=== PATIENT | male | born 1965 | race Caucasian/White ===

== ENCOUNTER 2020-07-09 06:22 | Outpatient (REF) | payer OTHER, SELFPAY ==
[2020-07-09 07:36] LABS: Estimated Average Glucose 108 mg/dL; Hemoglobin A1C 136.3725 umol/L; Hemoglobin A1c % 5.4 %
[2020-07-09 07:42] LABS: Anion Gap 14 (12-20); Blood Urea Nitrogen 21 mg/dL (9-16); Carbon Dioxide 25 mmol/L (22-29); Chloride 105 mmol/L (96-108); Cholesterol 164 mg/dL; Estimated Glomerular Filt Rate > 60; Glucose Fasting 97 mg/dL (60-99); HDL Cholesterol 35 mg/dL; LDL Cholesterol Calculated 114 mg/dl; Potassium 4.6 mmol/l (3.3-5.1); Sodium 139 mmol/L (135-145); Triglycerides 79 mg/dL
== END 2020-07-09 06:23 | disposition home or self-care (01) ==
LOC: HO.LAB 06:22
PROVIDERS: Visit Provider Family Medicine
DX: I10 Essential (primary) hypertension (principal); E11.9 Type 2 diabetes mellitus without complications; E78.01 Familial hypercholesterolemia
CPT/HCPCS: 80051; 80061; 82565; 82947; 83036; 84520

== ENCOUNTER 2020-07-16 07:37 | Outpatient (REF) | payer OTHER, SELFPAY ==
[2020-07-16 11:20] LABS: Creatinine Urine 49.99 mg/dL; Microalbumin Urine < 5.0 mg/L
== END 2020-07-16 07:38 | disposition home or self-care (01) ==
LOC: HO.10HDL 07:37
PROVIDERS: PCP Family Medicine; Visit Provider Family Medicine
DX: E11.9 Type 2 diabetes mellitus without complications (principal)
CPT/HCPCS: 82043

== ENCOUNTER 2021-07-02 07:05 | Outpatient (REF) | payer OTHER, SELFPAY ==
[2021-07-02 08:14] LABS: Estimated Average Glucose 111 mg/dL; Hemoglobin A1c % 5.5 %
[2021-07-02 08:27] LABS: Anion Gap 14 (12-20); Blood Urea Nitrogen 22 mg/dL (9-16); Carbon Dioxide 26 mmol/L (22-29); Chloride 105 mmol/L (96-108); Cholesterol 174 mg/dL; Estimated Glomerular Filt Rate > 60; Glucose Fasting 99 mg/dL (60-99); HDL Cholesterol 36 mg/dL; LDL Cholesterol Calculated 120 mg/dl; Potassium 4.7 mmol/L (3.3-5.1); Sodium 140 mmol/L (135-145); Triglycerides 92 mg/dL
== END 2021-07-02 07:06 | disposition home or self-care (01) ==
LOC: HO.LAB 07:05
PROVIDERS: PCP Family Medicine; Visit Provider Family Medicine
DX: I10 Essential (primary) hypertension (principal); E11.9 Type 2 diabetes mellitus without complications; E78.00 Pure hypercholesterolemia, unspecified
CPT/HCPCS: 36415; 80051; 80061; 82565; 82947; 83036; 84520

== ENCOUNTER 2022-03-26 06:10 | Outpatient (REF) | payer OTHER, SELFPAY ==
[2022-03-26 07:21] LABS: Estimated Average Glucose 105 mg/dL; Hemoglobin A1c % 5.3 %
[2022-03-26 07:55] LABS: Anion Gap 17 (12-20); Blood Urea Nitrogen 19 mg/dL (9-16); Carbon Dioxide 24 mmol/L (22-29); Chloride 103 mmol/L (96-108); Estimated Glomerular Filt Rate > 60; Glucose Fasting 106 mg/dL (60-99); Potassium 4.9 mmol/L (3.3-5.1); Sodium 139 mmol/L (135-145)
== END 2022-03-26 06:11 | disposition home or self-care (01) ==
LOC: HO.LAB 06:10
PROVIDERS: PCP Family Medicine; Visit Provider Family Medicine
DX: I10 Essential (primary) hypertension (principal); E11.9 Type 2 diabetes mellitus without complications
CPT/HCPCS: 36415; 80051; 82565; 82947; 83036; 84520

== ENCOUNTER 2022-11-20 06:05 | Outpatient (REF) | payer OTHER, SELFPAY ==
[2022-11-20 08:16] LABS: Alanine Aminotransferase 14 U/L (0-40); Anion Gap 13 (12-20); Blood Urea Nitrogen 20 mg/dL (9-16); Carbon Dioxide 27 mmol/L (22-29); Chloride 103 mmol/L (96-108); Estimated Glomerular Filt Rate > 60; Glucose Fasting 103 mg/dL (60-99); Potassium 4.5 mmol/L (3.3-5.1); Sodium 138 mmol/L (135-145)
[2022-11-20 08:34] LABS: Estimated Average Glucose 108 mg/dL; Hemoglobin A1c % 5.4 %
== END 2022-11-20 06:06 | disposition home or self-care (01) ==
LOC: HO.LAB 06:05
PROVIDERS: PCP Family Medicine; Visit Provider Family Medicine
DX: I10 Essential (primary) hypertension (principal); E78.00 Pure hypercholesterolemia, unspecified; R73.9 Hyperglycemia, unspecified
CPT/HCPCS: 36415; 80051; 80061; 82565; 82947; 83036; 84460; 84520

== ENCOUNTER 2023-06-07 06:07 | Outpatient (REF) | payer OTHER, SELFPAY ==
[2023-06-07 08:08] LABS: Cholesterol 169 mg/dL (<200); Glucose Fasting 89 mg/dL (60-99); HDL Cholesterol 34 mg/dL (>40); LDL Cholesterol Calculated 116 mg/dL (<100); Triglycerides 95 mg/dL (<150)
[2023-06-07 09:48] LABS: Creatinine Urine 71.53 mg/dL; Microalbumin Urine < 5.0 mg/L
== END 2023-06-07 06:08 | disposition home or self-care (01) ==
LOC: HO.LAB 06:07
PROVIDERS: PCP Family Medicine; Visit Provider Family Medicine
DX: E78.00 Pure hypercholesterolemia, unspecified (principal); E11.29 Type 2 diabetes mellitus with other diabetic kidney complication
CPT/HCPCS: 36415; 80061; 82570; 82947

== ENCOUNTER 2023-09-14 06:04 | Outpatient (REF) | payer OTHER, SELFPAY ==
[2023-09-14 07:41] LABS: Estimated Average Glucose 100 mg/dL; Hemoglobin A1c % 5.1 % (<6.0)
[2023-09-14 07:46] LABS: Alanine Aminotransferase 12 U/L (0-40); Anion Gap 14 (12-20); Aspartate Amino Transferase 17 U/L (5-37); Blood Urea Nitrogen 17 mg/dL (9-16); Carbon Dioxide 25 mmol/L (22-29); Chloride 106 mmol/L (96-108); Estimated Glomerular Filt Rate > 60; Glucose Fasting 104 mg/dL (60-99); Sodium 141 mmol/L (135-145)
[2023-09-14 08:14] LABS: Creatinine Urine 61.98 mg/dL; Microalbumin Urine < 5.0 mg/L
== END 2023-09-14 06:05 | disposition home or self-care (01) ==
LOC: HO.LAB 06:04
PROVIDERS: PCP Family Medicine; Visit Provider Family Medicine
DX: I10 Essential (primary) hypertension (principal); E11.9 Type 2 diabetes mellitus without complications; E78.00 Pure hypercholesterolemia, unspecified; Z79.899 Other long term (current) drug therapy
CPT/HCPCS: 36415; 80051; 82043; 82550; 82565; 82570; 82947; 83036; 84450; 84460; 84520

== ENCOUNTER 2023-11-15 06:02 | Outpatient (REF) | payer OTHER, SELFPAY ==
[2023-11-15 06:20] LABS: MANUAL DIFF FLAG NO
[2023-11-15 08:00] LABS: Basophils Absolute Auto 0.1 X10*3/uL (0.0-0.2); Basophils Percent Auto 0.7 % (0-2); Eosinophils Absolute Auto 0.3 X10*3/uL (0.0-0.4); Eosinophils Percent Auto 4.2 % (0-4); Hematocrit 39.7 % (42.0-52.0); Hemoglobin 12.8 g/dl (14.0-18.0); Imm Gran Abs Auto 0.01 X10*3/uL (0.00-0.03); Imm Gran Pct Auto 0.1 % (0.0-0.4); Lymphocytes Absolute Auto 2.2 X10*3/uL (1.2-4.9); Lymphocytes Percent Auto 30.6 % (20-40); Mean Corpuscular HGB Conc 32.2 g/dl (31.0-36.0); Mean Corpuscular Volume 86.9 fL (80.0-98.0); Mean Platelet Volume 9.1 fL (9.4-12.4); Monocytes Absolute Auto 0.6 X10*3/uL (0.1-1.2); Neutrophils Percent Auto 56.4 % (45-73); Platelet Count 318 X10*3/uL (160-400); Red Blood Count 4.57 X10*6/uL (4.60-5.80); Red Cell Distribution Width 12.9 % (11.0-16.0); White Blood Count 7.1 X10*3/uL (4.8-10.8)
[2023-11-15 08:40] LABS: Alanine Aminotransferase 12 U/L (0-40); Albumin Level 4.4 g/dL (3.5-5.0); Alkaline Phosphatase 110 U/L (39-117); Anion Gap 12 (12-20); Aspartate Amino Transferase 20 U/L (5-37); Bilirubin Total 0.6 mg/dL (0.0-1.0); Blood Urea Nitrogen 12 mg/dL (9-16); C Reactive Protein 0.28 mg/dL (< or = 0.50); Calcium 9.9 mg/dL (8.4-10.2); Carbon Dioxide 26 mmol/L (22-29); Chloride 105 mmol/L (96-108); Cholesterol 253 mg/dL (<200); Estimated Glomerular Filt Rate > 60; Glucose Fasting 87 mg/dL (60-99); HDL Cholesterol 31 mg/dL (>40); LDL Cholesterol Calculated 205 mg/dL (<100); Potassium 3.9 mmol/L (3.3-5.1); Sodium 139 mmol/L (135-145); Total Protein 7.9 g/dL (6.5-8.0); Triglycerides 87 mg/dL (<150)
[2023-11-15 08:51] LABS: Erythrocyte Sedimentation Rate 29 MM/HR (0-15)
[2023-11-15 08:58] LABS: Thyroid Stimulating Hormone 2.89 uIU/mL (0.32-4.0)
== END 2023-11-15 06:03 | disposition home or self-care (01) ==
LOC: HO.LAB 06:02
PROVIDERS: PCP Family Medicine; Visit Provider Family Medicine
DX: R63.4 Abnormal weight loss (principal); E78.00 Pure hypercholesterolemia, unspecified; E11.9 Type 2 diabetes mellitus without complications
CPT/HCPCS: 36415; 80053; 80061; 82378; 84443; 85025; 85652; 86140

== ENCOUNTER 2023-12-09 08:20 | Outpatient (AMB) | payer OTHER, SELFPAY ==
--- NOTE | 2023-12-09 08:20 | A.OFFVIS_ITS ---
Intake Visit Reasons: Rectal Tumor Intake Note: This patient presents for an assessmet for rectal tumor. Patient c/o; occasional rectal bleeding, occasional sharp rectal pain, reports no rectal pressure. Balance Weigher Required: No Accompanied by: Spouse Allergies No Known Allergies [No Known Allergies*] Allergy (Unverified 04/11/20 15:30) Medication List - Last Reconciled 12/09/23 by Shay Haro MD amlodipine 5 mg PO DAILY clonazepam 1 mg PO BEDTIME PRN lamotrigine mg PO lisinopril 20 mg PO DAILY methylphenidate HCl 10 mg PO DAILY methylphenidate HCl ER 54 mg PO QAM metoprolol succinate ER 50 mg PO DAILY risperidone (Risperdal) 1 mg PO BEDTIME HPI HPI Rectal Tumor: Details: 58-year-old male referred for recto sigmoid mass. He has known diabetes, morbid obesity and hypertension but has been losing weight for the past year now. He says that he has lost about 100 lb since last year. He describes some anorexia though has good oral intake. He says that continues to have good bowel movements although sometimes it may be loose. He denies any abdominal pain at all He has had some much lower energy level for several months now. He was therefore sent for a CT scan by his primary care physician and there was note of rectosigmoid mass. He denies any bleeding. He has never had any colonoscopy in the past. He denies any known family history of colon cancer. He has a history of chronic back pain as well but this has improved after injections in the past. He admits to smoking marijuana every day. [facility] Medical History (Updated 12/09/23 @ 09:13 by Shay Haro MD) Marijuana smoker Chronic back pain Anxiety History of obesity Diabetes mellitus Hypertension Neoplasm of rectosigmoid junction Surgical History (Updated 12/09/23 @ 08:48 by DAVON Linton) No pertinent past surgical history Family History (Updated 12/09/23 @ 08:48 by DAVON Linton) Other Family history unknown Review of Systems Const Denies chills, Denies fever(s) and Reports weight loss Card Denies chest pain, Denies dyspnea and Denies dyspnea on exertion Resp Denies cough, Denies dyspnea and Denies dyspnea on exertion GI Denies hematochezia and Denies change in bowel habits Denies hematuria and Denies difficulty urinating Musc Denies back pain and Denies limited range of motion Neuro Denies focal weakness and Denies convulsions Psych Denies depression and Denies mood swings Physical Exam Const General: comfortable and no acute distress Orientation/consciousness: patient oriented x3 Neck Neck: Yes no lymphadenopathy Resp Auscultation: clear to auscultation bilaterally Cardio Rhythm: regular rhythm GI Palpation (GI): Soft to palpation, nontender and no guarding Neuro General: patient oriented x3 Assessment & Plan Assessment & Plan (1) Neoplasm of rectosigmoid junction: Code(s): D49.0 - Neoplasm of unspecified behavior of digestive system Category: Medical Plan: He has had significant weight loss and low energy levels for the past year. He had a CAT scan showing what appears to be recto- sigmoid mass, with multiple enlarged lymph nodes surrounding the area as well as multiple liver lesions cons istent with metastatic disease He has never had any colonoscopy in the past. We will schedule him for a flexible sigmoidoscopy and biopsies for pathologic diagnosis. I will refer him to Dr. Case as well for what may be palliative chemotherapy I did tell him that there is a good chance that he may need a colostomy if he develops signs of impending obstruction. I will review his imaging studies and also see what his flexible sigmoidoscopy shows. I discussed with him what this procedure entails. He understands that surgery is not curative for him at this time. His was with him during the entire visit. I spent more than 45 minutes explaining the above to the patient and his . Orders: Referrals Hematology & Oncology Referral D49.0 - Neoplasm of unspecified behavior of digestive system Coding Level of Care Code New Pt Level 4 (71023) Diagnoses Neoplasm of rectosigmoid junction D49.0
== END 2023-12-09 09:29 | disposition home or self-care (01) ==
PROVIDERS: PCP Family Medicine; Visit Provider Surgery
DX: D49.0 Neoplasm of unspecified behavior of digestive system (principal)
CPT/HCPCS: 99204

== ENCOUNTER → 2023-12-09 08:20 | Outpatient (BNVA) | payer OTHER, SELFPAY | PROVIDERS: PCP Family Medicine; Visit Provider Surgery ==

== ENCOUNTER 2023-12-14 05:53 | Day surgery (SDC) | payer OTHER, SELFPAY ==
--- NOTE | 2023-12-13 10:32 | P.CONAN_ITS ---
HPI - Anesthesia Eval Consult details Narrative: 58yo M for Sigmoidoscopy Flexible with biopsies PMFSH Active Problems Active Problems: All Active Problems Marijuana smoker (Acute) Chronic back pain (Acute) Anxiety (Acute) History of obesity (Acute) Diabetes mellitus (Acute) Hypertension (Acute) Neoplasm of rectosigmoid junction (Acute) Past Medical History Medical History Marijuana smoker Chronic back pain Anxiety History of obesity Diabetes mellitus Hypertension Neoplasm of rectosigmoid junction Family History Family History Other Family history unknown Surgical History Surgical History H/O oral surgery No pertinent past surgical history Social History Social History (Updated 12/16/23 @ 09:11 by Valeri Neal) Household Members: Spouse Patient Tobacco Use Status: Never used Tobacco Substance Use Type: Marijuana service: No Current occupational status: disabled [employer] Allergies Allergy/AdvReac Type Severity Reaction Status Date / Time No Known Allergies Allergy Verified 12/16/23 09:11 [No Known Allergies*] Home Medications ?Medication ?Instructions ?Recorded ?Confirmed ?Last Taken ?Type amlodipine 5 mg tablet 5 mg PO DAILY 12/09/23 12/16/23 12/13/23 History clonazepam 1 mg tablet 1 mg PO BEDTIME PRN Anxiety 12/09/23 12/16/23 12/14/23 05 :00 History lamotrigine 200 mg tablet 200 mg PO DAILY 12/09/23 12/16/23 Unknown History lisinopril 20 mg tablet 20 mg PO DAILY 12/09/23 12/16/23 12/13/23 History methylphenidate HCl 10 mg tablet 10 mg PO DAILY 12/09/23 12/16/23 Unknown History methylphenidate HCl 54 mg 54 mg PO QAM 12/09/23 12/16/23 Unknown History tablet,extended release 24 hr metoprolol succinate 50 mg 50 mg PO DAILY 12/09/23 12/16/23 12/13/23 History tablet,extended release 24 hr risperidone 1 mg tablet (Risperdal) 1 mg PO BEDTIME 12/09/23 12/16/23 Unknown History Exam Pertinent Lab Results Pertinent Lab Results: Laboratory Tests 11/15/23 06:18 WBC 7.1 Hgb 12.8 L Hct 39.7 L Plt Count 318 Sodium 139 Potassium 3.9 Chloride 105 Carbon Dioxide 26 BUN 12 Creatinine 0.86 Assessment and Plan Assessment Anesthesia Assessment: Chart Reviewed
[2023-12-14 06:14] VITALS: BP 113/71; PULSE 58; RESP 16; TEMP 36.7; O2SAT 99; BMI 25.7
[2023-12-14 06:22] LABS: Glucose, Whole Blood 95 mg/dL (60-115)
[2023-12-14] MEDS: Lactated Ringers 1,000 ML 100 ML IVCONT (06:28)
--- NOTE | 2023-12-14 07:18 | PC.NURSE ---
Patient in preop. NPO since midnight. Ate regular diet all day yesterday. Dr. Haro at bedside. Okay per him. No preop enema necessary per him.
--- NOTE | 2023-12-14 07:29 | P.CONAN_ITS ---
[facility] Active Problems Active Problems: All Active Problems Marijuana smoker (Acute) Chronic back pain (Acute) Anxiety (Acute) History of obesity (Acute) Diabetes mellitus (Acute) Hypertension (Acute) Neoplasm of rectosigmoid junction (Acute) Past Medical History Medical History Marijuana smoker Chronic back pain Anxiety History of obesity Diabetes mellitus Hypertension Neoplasm of rectosigmoid junction Functional capacity: independent ambulation Family History Family History Other Family history unknown Family history of problems with anesthesia: No Surgical History Surgical History H/O oral surgery No pertinent past surgical history History of Problems with Anesthesia: No Social History Social History Patient Tobacco Use Status: Never used Tobacco Use of substances other than those prescribed or required for medical reasons: Yes Substance Use Frequency: Daily Are you DNR?: No Advance Directives: No Advance Directives Information Provided: No Meds Allergies Allergy/AdvReac Type Severity Reaction Status Date / Time No Known Allergies Allergy Verified 12/14/23 06:06 [No Known Allergies*] Active Medications: Current Medications Lactated Ringer's (Lr) 1,000 mls @ 100 mls/hr IVCONT .Q10H RACHEL Last Admin: 12/14/23 06:28 Dose: 100 mls/hr Home Medications ?Medication ?Instructions ?Recorded ?Confirmed ?Last Taken ?Type amlodipine 5 mg tablet 5 mg PO DAILY 12/09/23 12/14/23 12/13/23 History clonazepam 1 mg tablet 1 mg PO BEDTIME PRN Anxiety 12/09/23 12/14/23 12/14/23 05:00 History lamotrigine 200 mg tablet mg PO 12/09/23 12/09/23 Unknown History lisinopril 20 mg tablet 20 mg PO DAILY 12/09/23 12/14/23 12/13/23 History methylphenidate HCl 10 mg tablet 10 mg PO DAILY 12/09/23 12/14/23 Unknown History methylphenidate HCl 54 mg 54 mg PO QAM 12/09/23 12/14/23 Unknown History tablet,extended release 24 hr metoprolol succinate 50 mg 50 mg PO DAILY 12/09/23 12/14/23 12/13/23 History tablet,extended release 24 hr risperidone 1 mg tablet (Risperdal) 1 mg PO BEDTIME 12/09/23 12/14/23 Unknown History Exam Height,Weight and Vital Signs: Height 6 ft 2 in Weight 90.718 kg Last Vital Signs Temp 98.1 F 12/14/23 06:14 Pulse 58 12/14/23 06:14 Resp 16 12/14/23 06:14 BP 113/71 12/14/23 06:14 Pulse Ox 99 12/14/23 06:14 O2 Del Method Room Air 12/14/23 06:14 Pertinent Lab Results Pertinent Lab Results: Laboratory Tests 12/14/23 06:19 POC Glucose 95 Airway Mallampati Class: II TM Dist: >3cm Neck ROM: Full Heart: RRR Lungs: CTA Assessment and Plan Assessment Anesthesia Assessment: Anesthesia Plan Discussed and Smoking Cess. Discussed Final Anesthetic Review Family History of Problems with Anesthesia: No History of Problems with Anesthesia: No NPO: Yes ASA Class: II Final Preanesthetic Review: Meds/Allgs Chart Reviewed, Consent Obtained/Reviewed and Anes Risks/Benef Reviewed Patient Risk: Low Procedure Risk: Low Anesthetic Plan Anesthetic Plan: MAC: and Epidural Disposition: Standard PACU
--- NOTE | 2023-12-14 07:31 | MHC.SHP ---
Pre-Procedural Eval Section A - 24 Hr Update-Section A only Date of Service: 12/14/23 The patient is an INPATIENT: No Changes since office visit: No Cold of Flu in the past 2 weeks, No New Medical Problems, No Changes in Medication and No Patient answered all questions The patient has been examined within 24 hours of the surgical procedure. The History & Physical has been completed within 30 days and I have reviewed it.: Yes Section B - Complete if H&P > 30 days Chief Complaint: Neoplasm of unspecified behavior of digestive syst Allergies: Allergies Allergy/AdvReac Type Severity Reaction Status Date / Time No Known Allergies Allergy Verified 12/14/23 06:06 [No Known Allergies*] Plan I have reviewed the history and physical and performed a pertinent physical examination on my patient. No changes have occurred unless specified. Time Spent With Patient Time: Total time managing care of this patient today ____ minutes.
--- NOTE | 2023-12-14 07:48 | W.PM.OPN ---
Operative Note Operative Note Date of Service: 12/14/23 Narrative: Preop diagnosis: Rectal mass Postop diagnosis: Rectal mass Procedure: Flexible sigmoidoscopy, biopsies of rectal mass with cold forceps Surgeon: Shay Haro MD The patient is a 58-year-old male, with weight loss and a rectal mass on CT scan. He understood the technique of flexible sigmoidoscopy and biopsies. He was aware of the risks, benefits, and alternatives He was brought to the operating room and placed in left lateral decubitus position under monitored anesthesia care. A surgical time-out was done. I did a digital rectal exam and there was note of a palpable, bulky mass in the distal rectum I proceeded to then insert the flexible sigmoidoscope and gently advanced this. Immediately, at about 5 cm, there was note of a bulky, circumferential and friable mass. I was able to advance the scope through min and the mass seemed to extend from about 5 cm to 12 cm. I proceeded to withdraw the scope. I did biopsies using the cold forceps The scope was then withdrawn and the procedure was completed. The patient tolerated procedure well. There were no immediate complications I will discuss with himthe path report and the next step in his care.
[2023-12-14 07:54] VITALS: BP 119/71; PULSE 52; RESP 16; TEMP 36.3; O2SAT 97
[2023-12-14 08:11] VITALS: BP 116/73; PULSE 50; RESP 18; TEMP 36.4; O2SAT 98
--- NOTE | 2023-12-14 09:12 | HO.POSTANES ---
Post Anesthesia Evaluation Post Anesthesia Evaluation Date of Service: 12/14/23 Vital Signs: Vital Signs Temp Pulse Resp BP Pulse Ox O2 Del Method 12/14/23 08:11 97.5 F 50 18 116/73 98 Room Air 12/14/23 07:54 97.3 F 52 16 119/71 97 Room Air 12/14/23 06:14 98.1 F 58 16 113/71 99 Room Air Anesthesia: Monitored Mental Status: Awake Pain Control: Satisfactory Nausea/Vomiting: None Hydration: Adequate Anesthesia-Related Issues: No Anes. Related Issues
== END 2023-12-14 08:45 | disposition home or self-care (01) ==
PROVIDERS: PCP Family Medicine; Visit Provider Surgery
PROC: 0DJD8ZZ Inspection of Lower Intestinal Tract, Via Natural or Artificial Opening Endoscopic (ICD-10-PCS; CPT 45330; principal; 2023-12-14 07:30)
DX: D01.0 Carcinoma in situ of colon (principal); E11.9 Type 2 diabetes mellitus without complications; I10 Essential (primary) hypertension; F12.90 Cannabis use, unspecified, uncomplicated; Z79.899 Other long term (current) drug therapy
CPT/HCPCS: 45331; 82947; 88305; 88341; 88342; J2704

== ENCOUNTER → 2023-12-14 05:53 | Outpatient (BNV) | payer OTHER, SELFPAY | PROVIDERS: PCP Family Medicine; Visit Provider Surgery | DX: D01.0 Carcinoma in situ of colon (principal) | CPT/HCPCS: 45331 ==

== ENCOUNTER → 2023-12-16 08:57 | Outpatient (BNV) | payer OTHER, SELFPAY | PROVIDERS: PCP Family Medicine; Referring Provider Surgery; Visit Provider Internal Medicine Medical Oncology | DX: C19 Malignant neoplasm of rectosigmoid junction (principal); C78.7 Secondary malignant neoplasm of liver and intrahepatic bile duct; C78.00 Secondary malignant neoplasm of unspecified lung | CPT/HCPCS: 99204; 99213; 99214 ==

== ENCOUNTER 2023-12-24 12:00 | Day surgery (SDC) | payer OTHER, SELFPAY ==
--- NOTE | ~2023-12-24 | IR_ITS ---
CLINICAL HISTORY: Metastatic colon cancer. The patient presents to interventional radiology for placement of a port for chemotherapy. PROCEDURES: 1. Real-time ultrasound-guided access into the right internal jugular vein after documentation of selected vessel patency, and permanent image storing in the patient records. 2. Placement of a 6.6 Grenadian single-lumen power port. CLINICIAN: Keanu Oliveira PA-C MEDICATIONS: - Versed 1.5 mg, Fentanyl 75 mcg, Lidocaine 1% 10 mL SQ -Antibiotics: Ancef 2g -For additional details, please see nursing flowsheet. Complications: None. Estimated blood loss: <5 ml Specimens: None. Contrast: None. Fluoroscopy time: 0.8 min MODERATE SEDATION TIME: 34 min PROCEDURE NOTE: The procedure, risks, benefits, and alternatives were carefully explained to the patient and written informed consent was obtained. The patient was placed supine on the fluoroscopy table. A timeout was performed. The right neck and chest was prepped and draped in usual sterile fashion. Maximum barrier technique was utilized. Local anesthesia was administered to the access site with 1% lidocaine. Under ultrasound guidance, the right internal jugular vein was accessed with a 5 fr micropuncture set. A 0.035 in wire was advanced into the IVC. A peel-away sheath was advanced over the wire and into the SVC, and the wire was removed. Next, subcutaneous lidocaine was administered to the chest. The port pocket was created after the skin incision, utilizing blunt dissection. Using blunt dissection, a subcutaneous tunnel was created that connects from the port pocket to the venotomy site. Through the peel-away sheath, the 6.6 Grenadian port catheter was placed. The catheter position was verified with fluoroscopy to be at the superior vena cava/right atrial junction. The port was connected to the catheter and was placed in the pocket. The venotomy site was closed with a 3-0 Vicryl subcutaneous suture. The port incision site was closed with interrupted 3-0 Vicryl subcutaneous sutures and surgical glue. Prior to closing the skin, 1 g of Ancef solution was placed in the pocket. The port was tested, flushed, and packed with heparin per routine protocol. The patient tolerated the procedure well. The patient was stable after the procedure and was transferred to the PACU. The procedure was performed under moderate sedation and with a dedicated nurse with continuous monitoring of vital signs. A permanent image of the ultrasound the neck and fluoroscopic image of the chest was saved and sent to PACS. FINDINGS: 1. Patent right internal jugular vein 2. Placement of a 6.6 Grenadian single lumen power port. 3. Port flushes and aspirates very well with a 10 mL syringe. No pneumothorax. IR/IR cvc insert tunnel w prt/script developer IMPRESSION: Placement of a 6.6 Grenadian single-lumen power port. PLAN: - The patient will be discharged home when stable by sedation protocol. - Port may be used immediately. This procedure was performed by Keanu Oliveira PA-C, and directly supervised by Dr. Morley
[2023-12-24 12:25] VITALS: BMI 26.3
--- NOTE | 2023-12-24 12:59 | MHC.SHP ---
Pre-Procedural Eval Section A - 24 Hr Update-Section A only Date of Service: 12/24/23 Section B - Complete if H&P > 30 days Chief Complaint: RECTAL CARCINOMA Details of Present Illness: 58 y/o man with metastatic rectal cancer and poor iv access Relevant Family History (Specify if Yes): No Relevant Social History: None Present Medications: see Short Stay Collaborative assessment Medical History: Significant History History of Previous Operations: Relevant previous surgery/procedure and date(s) Allergies: Allergies Allergy/AdvReac Type Severity Reaction Status Date / Time No Known Allergies Allergy Verified 12/24/23 12:23 [No Known Allergies*] Review of Systems Sugical H&P ROS: Negative: Cardiovascular, Respiratory, Neurological and Integumentary Exam Surgical H&P Exam: Normal: Heart, Normal: Lungs, Normal: Skin and Normal: Neurological and Not Evaluated: HEENT Plan Diagnosis/Plan: Unchanged I have reviewed the history and physical and performed a pertinent physical examination on my patient. No changes have occurred unless specified. Port Time Spent With Patient Time: Total time managing care of this patient today ____ minutes.
[2023-12-24 14:05] VITALS: BP 115/74; PULSE 54; RESP 18; TEMP 36.9; O2SAT 99
[2023-12-24 14:20] VITALS: BP 115/75; PULSE 57; RESP 16; O2SAT 99
[2023-12-24 14:35] VITALS: BP 119/76; PULSE 60; RESP 14; TEMP 36.9; O2SAT 100
[2023-12-27 07:34] LABS: Glucose, Whole Blood 81 mg/dL (60-115)
== END 2023-12-24 14:45 | disposition home or self-care (01) ==
LOC: HO.SSS 16:37
PROVIDERS: Radiology Vascular & Interventional Radiology; PCP Family Medicine; Visit Provider Internal Medicine Medical Oncology
DX: C20 Malignant neoplasm of rectum (principal); K76.9 Liver disease, unspecified; E11.9 Type 2 diabetes mellitus without complications; I10 Essential (primary) hypertension
CPT/HCPCS: 36561; 82947; 99152; 99153; A4364; C1769; C1788; J0690; J1642; J1644; J2250; J2310; J3010

== ENCOUNTER → 2023-12-24 12:34 | Outpatient (BNV) | payer OTHER, SELFPAY | PROVIDERS: PCP Family Medicine; Visit Provider Physician Assistant Surgical | DX: C18.9 Malignant neoplasm of colon, unspecified (principal) | CPT/HCPCS: 36561; 76937; 77001 ==

== ENCOUNTER 2023-12-28 11:18 | Day surgery (SDC) | payer OTHER, SELFPAY ==
[2023-12-28] VITALS (9 sets, daily range): BP systolic 97–114; BP diastolic 59–94; PULSE 52–66; RESP 16; TEMP 36.6–37.1; O2SAT 95–98; BMI 26.3
--- NOTE | ~2023-12-28 | US_ITS ---
Rectal cancer with multiple liver masses concerning for metastases. PROCEDURES: 1. Limited preprocedure ultrasound of the abdomen. Permanent images saved in PACS. 2. Ultrasound-guided biopsy of the right lobe liver mass. 3. Limited preprocedure ultrasound of the abdomen. Permanent images saved in PACS. CLINICIANS: Keanu Oliveira PA-C MEDICATIONS: -Versed 2 mg, Fentanyl 100 mcg, and lidocaine 1% 10 mL SQ -Antibiotics: None -For additional details, please see nursing flowsheet. COMPLICATIONS: None ESTIMATED BLOOD LOSS: < 5 ml CONTRAST: None SPECIMENS: 5 x 20 g cores were sent to pathology MODERATE SEDATION TIME: 15 min PROCEDURE NOTE: The procedure, risks, benefits, and alternatives were carefully explained to the patient and written informed consent was obtained. The patient was placed supine on the exam table. A timeout was performed. A limited ultrasound of the abdomen was performed to localize the right lobe liver lesion and choose appropriate needle entry and trajectory. The patient was prepped and draped in usual sterile fashion. The skin and deeper soft tissues were anesthetized with lidocaine. Under ultrasound guidance, a 19 gague trocar needle was advanced to the liver lesion. A 20 gauge biopsy device was inserted through the trocar needle advanced into the liver lesion. A total of 5, 20 gague cores were performed. The specimens were placed in formalin. A total of 2 Gelfoam torpedoes were then administered through the trocar needle into the biopsy tract and at the level of the liver capsule. The needle was removed. A limited post procedure ultrasound was then performed. Images were saved in PACS. A dry dressing was applied and secured with Tegaderm. There were no immediate complications. The patient was stable after the procedure and was transferred to the post anesthesia care unit. The procedure was done under moderate sedation with a dedicated nurse for monitoring of vital signs. US/US biopsy liver Impression: Ultrasound-guided biopsy of a right lobe liver mass. This procedure was performed by Keanu Oliveira PA-C and supervised by Dr. Howard.
[2023-12-28 12:17] LABS: Glucose, Whole Blood 88 mg/dL (60-115)
--- NOTE | 2023-12-28 12:35 | PC.NURSE ---
Patient arrived to [facility] for radiology procedure. Port on right chest recently placed, 12/23. Dressing over site clean, dry, and intact, No s/s infection. Order from Terrence Oliveira to access port. Port accessed, Tolerated well.
--- NOTE | 2023-12-28 13:25 | MHC.SHP ---
Pre-Procedural Eval Section A - 24 Hr Update-Section A only Date of Service: 12/28/23 The patient is an INPATIENT: No Changes since office visit: Yes Changes in Medication and Yes Patient answered all questions; No Cold of Flu in the past 2 weeks and No New Medical Problems The patient has been examined within 24 hours of the surgical procedure. The History & Physical has been completed within 30 days and I have reviewed it.: Yes Section B - Complete if H&P > 30 days Chief Complaint: RECTAL CA, LIVER DISEASE Allergies: Allergies Allergy/AdvReac Type Severity Reaction Status Date / Time No Known Allergies Allergy Verified 12/28/23 11:59 [No Known Allergies*] Plan I have reviewed the history and physical and performed a pertinent physical examination on my patient. No changes have occurred unless specified. Time Spent With Patient Time: Total time managing care of this patient today ____ minutes.
[2023-12-28] MEDS: Lidocaine HCl 1 % MPF 5 ML VIAL 10 ML SUBCUT (13:38)
== END 2023-12-28 16:32 | disposition home or self-care (01) ==
PROVIDERS: Radiology Vascular & Interventional Radiology; PCP Family Medicine; Visit Provider Internal Medicine Medical Oncology
DX: C78.7 Secondary malignant neoplasm of liver and intrahepatic bile duct (principal); C20 Malignant neoplasm of rectum; E11.9 Type 2 diabetes mellitus without complications; I10 Essential (primary) hypertension
CPT/HCPCS: 36561; 47000; 76942; 82947; 86850; 86900; 86901; 88307; 88313; 88341; 88342; 99152; 99153; J0690; J1642; J1644; J2250; J2310; J3010

== ENCOUNTER → 2023-12-28 12:46 | Outpatient (BNV) | payer OTHER, SELFPAY | PROVIDERS: PCP Family Medicine; Visit Provider Physician Assistant Surgical | DX: K76.9 Liver disease, unspecified (principal) | CPT/HCPCS: 47000; 76942 ==

== ENCOUNTER → 2023-12-30 09:18 | Outpatient (BNVA) | payer OTHER, SELFPAY | PROVIDERS: PCP Family Medicine; Visit Provider Surgery ==

== ENCOUNTER 2024-03-28 12:50 | Emergency (ER) | payer OTHER, SELFPAY ==
--- NOTE | ~2024-03-28 | CT_ITS ---
EXAMINATION: CT ANGIOGRAM CHEST, PE STUDY CLINICAL INFORMATION: Dyspnea. Swelling. Chest pain. COMPARISON: Chest x-ray November 30, 2017 TECHNIQUE: A noncontrast localizer was performed, followed by the administration of 65 mL Omnipaque [address] of the chest was then performed. Coronal and sagittal reformatted and 3-D technique MIP images of the chest were completed at the CT scanner and reviewed on the PACS workstation. No adverse effects were reported. [This CT examination was performed using dose optimization techniques as appropriate, variously including the following: *Automated exposure control *Adjustment of mA and/or kV according to patient size (this includes techniques or standardized protocols for targeted exams where dose is matched to indication/reason for exam; i.e. extremities or head) *Use of iterative reconstruction technique] DLP: 254 mGy-cm. FINDINGS: VASCULAR: The main pulmonary artery, secondary and tertiary branches of the pulmonary artery are normally opacified with no evidence of pulmonary embolism. The aorta and great vessels are unremarkable. MEDIASTINUM: No mediastinal mass. No significant lymphadenopathy. There is no pericardial effusion. CORONARY ARTERIES: Volume of coronary calcification:Moderate LUNGS: The lungs are clear. No nodule or infiltrate. Central bronchial airways open. FLUID: There is no pericardial effusion. There is no pleural effusion. AXILLA: No significant lymphadenopathy. UPPER ABDOMEN: Adrenal glands normal. Visualized portions of liver and spleen unremarkable. SKELETAL: No suspicious focal bone finding. CT/CT angio chest PE protocol IMPRESSION: 1. No evidence of pulmonary embolism. 2. No acute abnormality. Electronically signed by: Rahul Chacon MD 03/28/2024 03:05 PM EDT
[2024-03-28 12:57] VITALS: BP 140/81; PULSE 70; RESP 16; TEMP 36.4; O2SAT 100; BMI 23.4
--- NOTE | 2024-03-28 12:59 | ECG_ITS ---
Test Reason : CHEST TIGHTNESS Blood Pressure : / mmHG Vent. Rate : 068 BPM Atrial Rate : 068 BPM P-R Int : 202 ms QRS Dur : 090 ms QT Int : 402 ms P-R-T Axes : 032 -57 035 degrees QTc Int : 427 ms Normal sinus rhythm Left axis deviation Inferior infarct , age undetermined Anterolateral infarct (cited on or before 28-MAR-2024) Abnormal ECG When compared with ECG of 28-MAR-2024 12:19, Premature ventricular complexes are no longer Present Premature atrial complexes are no longer Present Inferior infarct is now Present Questionable change in initial forces of Lateral leads Referred By: Mell Stewart Electronically Signed By:IVY STOKES
--- NOTE | 2024-03-28 13:08 | ED_ITS ---
HPI - Chest Pain General Chief Complaint: Chest Pain Stated Complaint: chest tightness SOB Time Seen by Provider: 03/28/24 12:56 Source: patient and old records reviewed Mode of arrival: wheelchair Limitations: no limitations History of Present Illness ED Provider: ALIVIA GALEANA narrative: 59 yo male with PMH of HTN, DM, chronic back pain, anxiety, colon cancer with mets to liver just received oxaliplatin today which was his last chemo session and felt tightness in his chest with sweats and became red, family noticed his heart rate went up. This lasted 15 minutes. He feels fine now. He has never had a reaction during chemo. He has no known heart disease, he felt fine prior to infusion. He notes it was very abrupt during infusion. Oncologist reports that this medication can sometimes cause anginal symptoms. MD complaint: chest heaviness Onset (ago): hour(s) (1) Timing of current episode: now resolved Prior episodes: No Onset: other (during infusion) Pain location: left chest and right chest Pain radiation: none Severity: moderate Quality: tightness Relieving factors: nothing Exacerbating factors: nothing Associated symptoms: diaphoresis and dyspnea Treatment prior to arrival: none Related Data Home Medications ?Medication ?Instructions ?Recorded ?Confirmed amlodipine 5 mg tablet 5 mg PO DAILY 12/09/23 03/14/24 clonazepam 1 mg tablet 1 mg PO BEDTIME PRN Anxiety 12/09/23 03/14/24 lamotrigine 200 mg tablet 200 mg PO DAILY 12/09/23 03/14/24 methylphenidate HCl 10 mg tablet 10 mg PO DAILY 12/09/23 03/14/24 methylphenidate HCl 54 mg 54 mg PO QAM 12/09/23 03/14/24 tablet,extended release 24 hr metoprolol succinate 50 mg 50 mg PO DAILY 12/09/23 03/14/24 tablet,extended release 24 hr risperidone 1 mg tablet (Risperdal) 1 mg PO BEDTIME 12/09/23 03/14/24 Previous Rx's ?Medication ?Instructions ?Recorded dexamethasone 4 mg tablet 4 mg PO BID #60 tabs 01/09/24 omeprazole 20 mg capsule,delayed 20 mg PO DAILY #30 caps 01/17/24 release prednisone 20 mg tablet 40 mg (2 x 20 mg) PO DAILY #60 tabs 01/31/24 ondansetron 8 mg disintegrating 8 mg PO Q8H #60 tabs 02/08/24 tablet prednisone 5 mg tablet 5 mg PO DIRECTED #100 tabs 02/08/24 magnesium oxide 400 mg PO DAILY #30 caps 03/13/24 potassium chloride 10 mEq 20 meq (2 x 10 mEq) PO BID #60 caps 03/14/24 capsule,extended release minocycline 100 mg capsule 100 mg PO DAILY #30 caps 03/17/24 Allergies Allergy/AdvReac Type Severity Reaction Status Date / Time No Known Allergies Allergy Verified 03/28/24 12:57 [No Known Allergies*] Review of Systems 2 Review of Systems: Constitutional : No Weight loss, No Fever, No Chills, pos sweats ENT/Mouth : No sore throat, No Rhinorrhea Eyes: No Eye Pain, No Swelling Cardiovascular : pos Chest Pain, pos SOB, no Dyspnea on Exertion, No Orthopnea, No Edema, No Palpitations Respiratory : No Cough, No Sputum Gastrointestinal : no Nausea, No Vomiting, No Diarrhea, No abdominal Pain, No Hematochezia, No Melena Genitourinary : No Dysuria, No Urinary Frequency Musculoskeletal : No joint pain, No Myalgias, No Joint Swelling Skin : No Skin Lesions, No rash Neuro : No Weakness, No Numbness, No Dizziness, No Headache Psych : No Anxiety/Panic, No Depression All other systems reviewed and are negative [facility] Past Medical History Attestation statement: The following information was validated with the patient. Source: old records reviewed Medical History Port-A-Cath in place H/O sigmoidoscopy Elective surgery Marijuana smoker Chronic back pain Anxiety History of obesity Diabetes mellitus Hypertension Neoplasm of rectosigmoid junction Surgical History History of flexible sigmoidoscopy (~12/14/23) H/O oral surgery No pertinent past surgical history Family History Family History Other Family history unknown Social History Social History Household Members: Spouse Patient Tobacco Use Status: Never used Tobacco Substance Use Type: Marijuana Advance Directives: Yes Advance Directives on File: Yes Advance Directives Date on File: 03/13/24 Do you have a plan to hurt others: No Plan service: No Current occupational status: disabled Physical Exam 2 Vital Signs: Vital Signs: Last Vital Signs Temp 98.5 F 03/28/24 14:22 Pulse 66 03/28/24 14:22 Resp 16 03/28/24 14:22 BP 119/85 03/28/24 14:22 Pulse Ox 98 03/28/24 14:22 O2 Del Method Room Air 03/28/24 14:22 BMI result Body Mass Index 23.4 Appearance: Alert. Oriented X3. No acute distress. Frail older appearing Eyes: Pupils equal, round and reactive to light. ENT: Pharynx normal. Neck: Normal inspection. Neck supple. CVS: Normal heart rate and rhythm. Pulses normal. Respiratory: No respiratory distress. Breath sounds normal. Abdomen: Soft and nontender. Skin: Skin warm and dry. pale skin color. Normal skin turgor. Extremities: No lower extremity edema. Neuro: Oriented X 3. No motor deficit. No sensory deficit. Medications Administered Discontinued Medications Generic Name Dose Route Start Last Admin Trade Name Freq PRN Reason Stop Dose Admin Iohexol 100 ml 03/28/24 14:12 03/28/24 14:13 Iohexol 350 Mg/Ml 100 Ml Infus..Btl IV 03/28/24 14:13 65 ml ONCE ONE Administration Medical Decision Making Medical Decision Making MDM Narrative: 59 yo male with PMH of HTN, DM, chronic back pain, anziety, colon cancer with mets to liver now with chest tightness during infusion of chemo at this time will need trop x 2, EKG, CTA for PE given high risk he has no symptoms now. He denies recent fevers or viral like illness, no cough or sputum production. Oncologist called ahead and states this infusion can call angina symptoms Differential Diagnosis Differential Diagnoses: The differential diagnosis associated with the presentation includes ACS, med reaction, VTE, CHF Admission/Observation Consideration of admission/observation: Escalation of care including admission/observation considered labs reassuring, CTA negative Lab Data [facility] Lab Attestation statement: I reviewed the patient's lab results. 03/28/24 13:09 03/28/24 13:09 Labs: Lab Results 03/28/24 Range/Units 13:09 WBC 3.3 L (4.8-10.8) X10*3/uL RBC 4.49 L (4.60-5.80) X10*6/uL Hgb 12.7 L (14.0-18.0) g/dl Hct 39.6 L (42.0-52.0) % MCV 88.2 (80.0-98.0) fL MCH 28.3 (27.0-33.0) pg MCHC 32.1 (31.0-36.0) g/dl RDW 19.8 H (11.0-16.0) % Plt Count 90 L (160-400) X10*3/uL MPV 10.0 (9.4-12.4) fL Immature Gran % (Auto) 0.6 H (0.0-0.4) % Neut % (Auto) 84.8 H (45-73) % Lymph % (Auto) 12.2 L (20-40) % Keith % (Auto) 2.1 (2-11) % Eos % (Auto) 0.0 (0-4) % Baso % (Auto) 0.3 (0-2) % Lymph # (Auto) 0.4 L (1.2-4.9) X10*3/uL Keith # (Auto) 0.1 (0.1-1.2) X10*3/uL Eos # (Auto) 0.0 (0.0-0.4) X10*3/uL Baso # (Auto) 0.0 (0.0-0.2) X10*3/uL Abs Immat Gran (auto) 0.02 (0.00-0.03) X10*3/uL Absolute Neuts (auto) 2.8 (2.0-8.3) x10*3/uL Absolute Nucleated RBC 0.000 (0.0-0.012) X10*3/uL Nucleated RBC % (auto) 0.0 (0.0-0.2) /100WBC Sodium 141 (135-145) mmol/L Potassium 3.3 (3.3-5.1) mmol/L Chloride 108 (96-108) mmol/L Carbon Dioxide 22 (22-29) mmol/L Anion Gap 14 (12-20) BUN 12 (9-16) mg/dL Creatinine 0.69 (0.5-1.4) mg/dL Estim Creat Clear Calc 132.3 Estimated GFR > 60 Random Glucose 216 H (60-115) mg/dL Calcium 8.9 (8.4-10.2) mg/dL Troponin I High Sens 21.2 (<3.5-35.0) ng/L Independent Interpretation I performed an independent interpretation of an: EKG and CT Scan (no PE no dissection, no effusion) Interpretation: Rate: 68 Rhythm: NSR Conde: left Normal P waves. Normal KATYA. Normal QRS complex. Poor R wave progression ST T wave : normal no ARLETTE, nonspecific ST T wave changes ant leads qTC: 427 prior studies: R progression changed from 2019 The study has been interpreted contemporaneously by me. . Radiology Impression Discussion of test interpretation with radiology: I have reviewed the radiologist's reading. Independent Historian Clinical information obtained from an independent historian. History obtained from or confirmed by: Spouse External Record Review External record reviewed: Inpatient record Discharge Plan Discharge Clinical Impression: Chest tightness Patient Disposition: Still a Patient Instructions: Chest Pain (ED) Additional Instructions: labs reassuring other than your platelets are at 90 please follow up with Dr. Castro regarding your platelets CTA scan negative no pneumonia no blood clot return for any worsening symptoms or concerns. Prescriptions: No Action dexamethasone 4 mg Tablet 4 mg PO BID Qty: 60 5RF Rx Instructions: Take 4 mg po BID, days 2 & 3 of chemotherapy, q 2 weekly omeprazole 20 mg Capsule,Delayed Release(Dr/Ec) 20 mg PO DAILY Qty: 30 3RF prednisone 20 mg Tablet 40 mg PO DAILY Qty: 60 3RF ondansetron 8 mg Tablet,Disintegrating 8 mg PO Q8H Qty: 60 5RF prednisone 5 mg Tablet 5 mg PO DIRECTED Qty: 100 3RF Rx Instructions: see taper instructions magnesium oxide 400 mg magnesium Capsule 400 mg PO DAILY Qty: 30 3RF potassium chloride 10 mEq Capsule, Extended Release 20 meq PO BID Qty: 60 4RF minocycline 100 mg Capsule 100 mg PO DAILY Qty: 30 0RF clonazepam 1 mg tablet 1 mg PO BEDTIME PRN (Reason: Anxiety) lamotrigine 200 mg tablet 200 mg PO DAILY methylphenidate HCl 54 mg tablet extended release 24hr 54 mg PO QAM methylphenidate HCl 10 mg tablet 10 mg PO DAILY metoprolol succinate 50 mg tablet extended release 24 hr 50 mg PO DAILY amlodipine 5 mg tablet 5 mg PO DAILY risperidone [Risperdal] 1 mg tablet 1 mg PO BEDTIME Print Language: Belarusian
[2024-03-28 13:12] LABS: MANUAL DIFF FLAG NO
[2024-03-28 13:20] LABS: Basophils Percent Auto 0.3 % (0-2); Hematocrit 39.6 % (42.0-52.0); Hemoglobin 12.7 g/dl (14.0-18.0); Imm Gran Abs Auto 0.02 X10*3/uL (0.00-0.03); Imm Gran Pct Auto 0.6 % (0.0-0.4); Lymphocytes Absolute Auto 0.4 X10*3/uL (1.2-4.9); Lymphocytes Percent Auto 12.2 % (20-40); Mean Corpuscular HGB Conc 32.1 g/dl (31.0-36.0); Mean Corpuscular Hemoglobin 28.3 pg (27.0-33.0); Mean Corpuscular Volume 88.2 fL (80.0-98.0); Monocytes Absolute Auto 0.1 X10*3/uL (0.1-1.2); Monocytes Percent Auto 2.1 % (2-11); Neutrophils Absolute Auto 2.8 x10*3/uL (2.0-8.3); Neutrophils Percent Auto 84.8 % (45-73); Red Blood Count 4.49 X10*6/uL (4.60-5.80); Red Cell Distribution Width 19.8 % (11.0-16.0); White Blood Count 3.3 X10*3/uL (4.8-10.8)
[2024-03-28 13:25] LABS: Anion Gap 14 (12-20); Blood Urea Nitrogen 12 mg/dL (9-16); Calcium 8.9 mg/dL (8.4-10.2); Carbon Dioxide 22 mmol/L (22-29); Chloride 108 mmol/L (96-108); Creatinine Clr Calc Pharmacy 132.3; Estimated Glomerular Filt Rate > 60; Glucose Random 216 mg/dL (60-115); Platelet Count 90 X10*3/uL (160-400); Potassium 3.3 mmol/L (3.3-5.1); Sodium 141 mmol/L (135-145)
[2024-03-28 13:34] LABS: Troponin-I High Sensitivity 21.2 ng/L (<3.5-35.0)
--- NOTE | 2024-03-28 14:02 | PC.NURSE ---
20G inserted to RAC. Tolerated well. Good blood return.
[2024-03-28] MEDS: iohexoL 350 MG/ML 100 ML INFUS..BTL IV (14:13)
[2024-03-28 14:22] VITALS: BP 119/85; PULSE 66; RESP 16; TEMP 36.9; O2SAT 98
[2024-03-28 16:11] LABS: Troponin-I High Sensitivity 16.9 ng/L (<3.5-35.0)
[2024-03-28 16:19] VITALS: BP 122/85; PULSE 70; RESP 15; TEMP 36.5; O2SAT 98
[2024-03-28 17:24] VITALS: BP 144/78; PULSE 67; RESP 18; TEMP 36.5; O2SAT 97
[2024-03-28] MEDS: Heparin Sodium,Porcine Flush 50 UNITS, 0.9 % Sodium Chloride Flush 5 ML IVFLUSH (17:35)
== END 2024-03-28 17:44 | disposition home or self-care (01) ==
PROVIDERS: Emergency Medicine; Emergency Provider Emergency Medicine; PCP Family Medicine
DX: R07.89 Other chest pain (principal); R06.02 Shortness of breath; I10 Essential (primary) hypertension; Z79.899 Other long term (current) drug therapy
CPT/HCPCS: 36415; 71275; 80048; 84484; 85025; 93005; 99284; J1642; Q9967

== ENCOUNTER 2024-04-07 11:33 | Outpatient (REF) | payer OTHER, SELFPAY ==
--- NOTE | ~2024-04-07 | CT_ITS ---
EXAMINATION: CT ABDOMEN AND PELVIS WITH CONTRAST CLINICAL INFORMATION: Restaging after 5 cycles of chemotherapy. COMPARISON: Outside study December 07, 2023 TECHNIQUE: Multidetector volumetric images were obtained from the superior aspect of the liver through the pubic symphysis following administration 85 mL of Omnipaque 350 intravenous contrast. Sagittal and coronal reformatted images were obtained on the technologist's workstation. Oral contrast: No This CT examination was performed using dose optimization techniques as appropriate, variously including the following: *Automated exposure control *Adjustment of mA and/or kV according to patient size (this includes techniques or standardized protocols for targeted exams where dose is matched to indication/reason for exam; i.e. extremities or head) *Use of iterative reconstruction technique DLP: 442 mGy-cm FINDINGS: LUNG BASES: Nonspecific wall thickening of the distal esophagus. LIVER, GALLBLADDER, AND BILIARY TREE: The liver is decreased in attenuation. There are several indeterminate hypoattenuating hepatic lesions with the largest measuring 2.9 x 2.3 cm in the right lobe. This index lesion previously measured 5.2 x 4.2 cm. These lesions have overall decreased in number and size compared to December 07, 2023. No biliary ductal dilatation is present. The gallbladder is contracted. PANCREAS: No ductal dilatation. SPLEEN: Not enlarged. ADRENAL GLANDS: No adrenal mass. KIDNEYS AND URETERS: The kidneys are symmetric in size and enhancement. No hydronephrosis. No perinephric stranding. BLADDER: 9 mm linear hyperdensity at the right ureterovesical junction. No bladder wall thickening. GASTROINTESTINAL TRACT: Gastric distention. Marked fecal retention in the colon. No small bowel obstruction. Interval improvement in degree of irregular wall thickening of the rectum/rectosigmoid colon. Interval decrease in size of mesorectal lymph nodes as well as presacral stranding and edema. A previously demonstrated right mesorectal lymph node measured 1.5 x 2.2 cm and now measures 0.8 x 1.4 cm. ABDOMINAL WALL: No significant hernia is appreciated. LYMPH NODES: No bulky lymphadenopathy. VASCULAR: Normal caliber abdominal aorta. PELVIC VISCERA: Enlarged prostate gland. OSSEOUS STRUCTURES: No destructive bone lesions. CT/CT abdomen pelvis w IV con IMPRESSION: Interval improvement in overall disease burden. Decreased irregular wall thickening of the rectum/rectosigmoid colon. Decrease in presacral stranding/edema as well as size of mesorectal lymph nodes. Numerous hepatic metastatic lesions have also decreased in size. New 9 mm linear hyperdensity at the right ureterovesical junction. No bladder wall thickening. No hydronephrosis or hydroureter. Constipation. Electronically signed by: Kavon Ortiz MD 04/07/2024 04:54 PM EDT
[2024-04-07] MEDS: Barium Sulfate Oral (Vanilla) 450 ML ORAL.SUSP PO (14:12)
[2024-04-07] MEDS: iohexoL 350 MG/ML 100 ML INFUS..BTL 85 ML IV (14:12)
[2024-04-07] MEDS: Barium Sulfate Oral (Mocha) 450 ML ORAL.SUSP PO (14:13)
== END 2024-04-07 11:34 | disposition home or self-care (01) ==
LOC: HO.CT 11:33
PROVIDERS: Visit Provider Internal Medicine Medical Oncology
DX: C18.9 Malignant neoplasm of colon, unspecified (principal); C78.7 Secondary malignant neoplasm of liver and intrahepatic bile duct
CPT/HCPCS: 74177; Q9967

== ENCOUNTER 2024-04-18 15:00 | Outpatient (RCR) | payer OTHER, SELFPAY ==
--- NOTE | 2024-04-04 11:42 | MHC.PT.EP ---
[facility] [place] Office [place] Office [place] Office [address] Fernando Dewey [address] [phone] F: [phone] F: [phone] F: [phone] F: [phone] Physical Therapy Plan of Care Date of Evaluation: 04/04/24 Date of Surgery: Diagnosis: malignant neoplasm of colon, unspecified secondary malignant neoplasm of liver and intrahepatic bile duct weakness and deconditioned Assessment: 59 y/o male referred to PT with malignant neoplasm of colon, unspecified; secondary malignant neoplasm of liver and intrahepatic bile duct; and weakness and deconditioned. He was diagnosed 12/07/23 with rectal CA after progressively losing weight over the past year and loss of appetite. He had a CT scan of stomach and spleen 12/06/23 and reports (+) for colon CA which has metasasized to liver and lymph nodes. States Dr. Case started palliative chemo in the beginning of December (chemo every other week that lasts 4-days through [facility]). 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 Currently he presents with significant decrease in B UE and B LE strength, impaired posture, fatigue, poor eccentric control with sit to stands, and impaired gait pattern. Educated pt on pacing exercises and doing them in smaller intervals throughout the day d/t CA and blood counts. Recommend PT 1x/ every other week (d/t chemo cycle) to teach exercises and progress I HEP. Frequency and Duration: The patient will be seen 1x/ every other week for 4 session Short Term Goals: 2 weeks I with HEP Belt Cutter Goals: 6 weeks I with hEP and self management Pt will be able to ambulate > 15 minutes with LRAD Pt will improve B LE strength to > 3+/5 to facilitate functional mobility Treatment Plan: Modalities to reduce pain, spasms and effusion. Manual therapy to restore motion and function. Therapeutic exercise to improve strength and flexibility. Neuromuscular re-education for posture and balance. Therapeutic activities to return to functional activities of daily living. Electronically signed by: Rose Mary Woo PT Please sign and return to therapist. Thank you for your referral.
--- NOTE | 2024-07-13 08:41 | MHC.PT.DC ---
[facility] [place] [facility] [place] [facility] [place] [facility] [address] Fernando Dewey [address] [phone] F: [phone] F: [phone] F: [phone] F: [phone] Physical Therapy Discharge Report Diagnosis: malignant neoplasm of colon, unspecified secondary malignant neoplasm of liver and intrahepatic bile duct weakness and deconditioned Date of Surgery: Date of Evaluation: 04/04/24 Date of Discharge: 07/13/24 Treatments to Date: 2 Cancellations to Date: 4 No Shows to Date: 0 Discharge Status: Independent with HEP Visit Non-compliance Discharge Summary: Pt with difficulty attending regular visits at PT d/t chemo schedule and fatigue. At this time, pt has I HEP and d/c at this time to I program Electronically signed by: Rose Mary barajas PT Please sign and return to therapist. Thank you for your referral.
== END 2024-07-13 08:42 | disposition home or self-care (01) ==
LOC: HO.PT 15:00
PROVIDERS: PCP Family Medicine; Visit Provider Internal Medicine Medical Oncology
DX: C18.9 Malignant neoplasm of colon, unspecified (principal); C78.7 Secondary malignant neoplasm of liver and intrahepatic bile duct
CPT/HCPCS: 97110; 97162

== ENCOUNTER → 2024-08-31 10:10 | Outpatient (BNV) | payer OTHER, SELFPAY | PROVIDERS: PCP Family Medicine; Visit Provider Radiology Diagnostic Radiology | DX: C18.9 Malignant neoplasm of colon, unspecified (principal); C78.7 Secondary malignant neoplasm of liver and intrahepatic bile duct | CPT/HCPCS: 71260; 74177 ==

== ENCOUNTER 2024-12-29 14:42 | Outpatient (REF) | payer OTHER, SELFPAY ==
--- NOTE | ~2024-12-29 | CT_ITS ---
CLINICAL HISTORY: H O Colon cancer, on treatment CT abdomen and pelvis with contrast Comparison: 08/31/24 Findings: New ground-glass opacity in the right lower lobe in the medial basal segment. No gallstones visible on CT. No gallbladder wall thickening or pericholecystic fluid. The gallbladder is distended, measuring 4.9 cm in transverse dimension. There are low attenuating lesions in the liver measuring up to 2.1 cm, previously measuring up to 2.4 cm. Subcentimeter low attenuating lesions in the kidneys which are too small to characterize. Bilateral renal parapelvic cysts. default value. The other solid organs are unremarkable. Mild wall thickening of the distal esophagus, unchanged; mild esophagitis could be considered. Moderately increased stool quantity. No bowel dilation; the distal sigmoid colon is distended with stool, however measures within normal limits, measuring up to 5.6 cm. A normal appendix is identified. Colonic diverticulosis. Wall thickening of the rectum of the right aspect measuring up to 1.0 cm in thickness, similar to the prior study. The fat plane between the rectum and the prostate is lost, unchanged. Adjacent lymph nodes within the mesorectal fat measuring 0.5 cm in short axis, unchanged. Mild presacral edema. There is unchanged proximal narrowing without obstruction (series 7, image 67 on the current study and series 4 image 79 on the prior study). No aneurysm. Moderate to severe calcified atherosclerotic disease. No ascites. No acute osseous abnormality. Impression: Decrease in size of the liver lesions likely indicates improving metastatic disease. Unchanged rectal wall thickening, presumably the primary tumor. Loss of the fat plane between the rectum and the prostate may indicate invasion. Unchanged lymph nodes in the mesorectal fat. This document has been electronically signed by: Tiara Nieto MD on 01/01/2025 15:12:54
--- NOTE | ~2024-12-29 | CT_ITS ---
CLINICAL HISTORY: Follow-up on colon cancer. CT chest with contrast Comparison: N 08/31/2024 Findings: Right-sided Port-A-Cath with distal tip in the right atrium. Ectatic ascending thoracic aorta measuring up to 42 mm in the axial plane as before. The visualized thyroid and mediastinum are otherwise unremarkable. Small number of mostly new and partially ground-glass small opacities in the medial aspect of the right lower lobe due to atelectasis/scarring +/-infiltrate. Thin linear filling defect in segmental right middle lobe pulmonary artery (series 6, image 78) due to chronic PE. Stable 2 mm left upper lobe nodule on series 5, image 70. No other lung nodule identified. For the upper abdominal findings please refer to the same-day abdomen CT report. No acute fractures. IMPRESSION: Small number of mostly new and partially ground-glass small opacities in the medial aspect of the right lower lobe due to atelectasis/scarring +/-infiltrate. Thin linear filling defect in segmental right middle lobe pulmonary artery due to chronic PE. Stable 2 mm left upper lobe nodule. No other lung nodule identified. This document has been electronically signed by: Leslie Camara MD on 01/01/2025 11:04:31
[2024-12-29] MEDS: iohexoL 350 MG/ML 100 ML INFUS..BTL IV (17:03)
== END 2024-12-29 14:43 | disposition home or self-care (01) ==
LOC: HO.CT 14:42
PROVIDERS: PCP Family Medicine; Visit Provider Internal Medicine Medical Oncology
DX: C18.9 Malignant neoplasm of colon, unspecified (principal); C78.7 Secondary malignant neoplasm of liver and intrahepatic bile duct
CPT/HCPCS: 71260; 74177; Q9967

== ENCOUNTER → 2024-12-29 15:12 | Outpatient (BNV) | payer OTHER, SELFPAY | PROVIDERS: PCP Family Medicine; Visit Provider Radiology Diagnostic Radiology | DX: C18.9 Malignant neoplasm of colon, unspecified (principal); R91.1 Solitary pulmonary nodule | CPT/HCPCS: 71260; 74177 ==

== ENCOUNTER 2025-03-16 14:29 | Inpatient (IN) | payer OTHER, MEDICARE, SELFPAY ==
[2025-03-16] VITALS (9 sets, daily range): BP systolic 121–144; BP diastolic 66–89; PULSE 84–98; RESP 14–18; TEMP 36.6–37.3; O2SAT 92–95; BMI 26.9; BMI 25.1
--- NOTE | ~2025-03-16 | XR_ITS ---
EXAMINATION: XR CHEST CLINICAL INFORMATION: fever COMPARISON: 11/30/2017. TECHNIQUE: Frontal view of the chest was obtained. FINDINGS: Right chest port in good position with tip in the right atrium. The cardiac, hilar, and mediastinal contours are normal. There are low lung volumes was linear type mild atelectasis in the left base. There is patchy opacity as well in the left base. The right lung is clear. No pneumothorax or effusion. No focal osseous or soft tissue abnormality. 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 XR/XR chest 1V IMPRESSION: 1. Chest port in good position. 2. Low lung volumes. Patchy opacity left lung base, in keeping with pneumonia in the appropriate clinical setting. Electronically signed by: Aristeo Lebron MD 03/16/2025 04:51 PM EDT
--- NOTE | ~2025-03-16 | CT_ITS ---
CLINICAL HISTORY: abdominal pain CT abdomen and pelvis with contrast Comparison: CT/SR - CT ABDOMEN PELVIS W IV CON - 12/29/24 15:29 EDT Findings: There are foci of atelectasis of the lung bases. There are multiple low-density lesions within the right lobe of the liver, measuring up to 2.2 cm in size, grossly unchanged since the prior exam. There is pancreatic volume loss. There are multiple bilateral kidney cysts. The spleen and adrenal glands are unremarkable. There are no calcified gallstones. Severe distention of the colon with gas and fluid. Colon caliber measures up to 10 cm diameter. There is mild small bowel dilatation. There is thickening of the wall of the rectum. At the junction between the sigmoid colon and rectum, there is narrowing of the luminal diameter to 8 mm. Similar appearance on the prior study. There is thickening of the wall of the proximal sigmoid colon extending over approximately 7 cm of the length of the colon. The prostate gland is mildly enlarged. The urinary bladder is unremarkable. The appendix is not definitively seen. There are no secondary findings to suggest appendicitis. There is no free fluid or lymphadenopathy. The bones are intact. IMPRESSION: 1. There is thickening of the wall of the rectum compatible with no neoplasm, similar to the prior study. Focal luminal narrowing at the rectosigmoid junction is also similar to the prior exam. There is new colonic dilatation raising the possibility of a partial degree of obstruction at the level of the rectum. Alternatively, this may be secondary to ileus and/or an inflammatory process. 2. There is possible colitis involving a portion of the sigmoid colon. 3. Multiple low-density lesions within the liver without change. This document has been electronically signed by: Verenice Garrett MD on 03/16/2025 17:47:54
--- NOTE | ~2025-03-16 | XR_ITS ---
CLINICAL HISTORY: FU of distended colon --- Additional Notes or Special Instructions: Pt with rectal CA with liver mets on chemotherapy with neutropenia. Can wait until AM 1 view abdomen Comparison: CT 03/16/2025 Findings: Abnormal bowel-gas pattern with distention of small and large bowel loops which have markedly increased in diameter when compared to the recent CT. Small bowel caliber in the lower abdomen now measures 6 cm in diameter. No abnormal calcifications. No obvious pneumoperitoneum or pneumatosis at this time. No acute fractures Impression: Distal colon obstruction has progressed when compared to the previous exam due to rectal mass representing a known neoplasm. This document has been electronically signed by: Rohit Dutton MD on 03/18/2025 15:52:54
--- NOTE | ~2025-03-16 | FL_ITS ---
EXAMINATION: XR FLUOROSCOPY WITH IMAGES CLINICAL INFORMATION: Colonoscopy with stent placement. COMPARISON: Correlation made with CT abdomen and pelvis 03/16/2025. TECHNIQUE: Fluoroscopy provided to: Dr. Gregg Fluoroscopy time: 0.5 minutes DAP: 7.04 Gycm2 Images: 4 FINDINGS: 4 fluoroscopic spot images of the lateral inferior pelvis taken during colonoscopy with stent placement. Please refer to the full operative report for details. FL/FL guidance in OR IMPRESSION: Fluoroscopic guidance. Electronically signed by: Aristeo Lebron MD 03/20/2025 04:39 PM EDT
--- NOTE | ~2025-03-16 | XR_ITS ---
CLINICAL HISTORY: NG tube placement. 1 view chest x-ray Comparison: CR/SR - XR CHEST 1 VIEW - 03/20/25 09:28 EDT Findings: Low lung volumes. Bibasilar mild atelectasis. No effusion. No consolidation. Normal size heart. Power injectable right internal jugular chest port in place. No acute fracture. Probable enchondroma of the right proximal humerus, 3 cm. IMPRESSION: 1. Gaseous distention of bowel loops throughout the upper abdomen. Correlate with clinical signs or symptoms of bowel obstruction. 2. NG tube in the upper stomach. This document has been electronically signed by: Zayra Dill MD on 03/20/2025 23:12:39
--- NOTE | ~2025-03-16 | XR_ITS ---
EXAMINATION: XR CHEST CLINICAL INFORMATION: hypoxia COMPARISON: March 20, 2025 TECHNIQUE: Frontal view of the chest was obtained. FINDINGS: Again seen is patchy sclerosis with rings and arcs in the proximal right humerus consistent with a low-grade chondroid lesion. Right Port-A-Cath in the right IJ and terminates at in the inferior cavoatrial junction. Unchanged. NG tube has been removed. Lung volumes are low. Lungs are clear. Heart size is within normal limits. There is moderate gaseous distention of small and large bowel. XR/XR chest 1V IMPRESSION: No acute disease. Low lung volumes Persistent paralytic ileus. Electronically signed by: Juan Lipscomb MD 03/27/2025 05:18 PM EDT
--- NOTE | ~2025-03-16 | XR_ITS ---
EXAMINATION: XR CHEST CLINICAL INFORMATION: sob COMPARISON: March 16, 2025 TECHNIQUE: Frontal view of the chest was obtained. FINDINGS: Right-sided IJ central tunnel port terminates inferior cavoatrial junction. Lung volumes are low. Focal opacity in the left lung base has decreased since the prior. Gas distends the stomach, small bowel, and large bowel. XR/XR chest 1V IMPRESSION: Improving left basilar opacity/pneumonia. Low lung volumes. Probable paralytic ileus. Right IJ terminates in the right atrium and inferior vena caval junction Electronically signed by: Juan Lipscomb MD 03/20/2025 09:50 AM EDT
--- NOTE | 2025-03-16 15:44 | ED.GENADULT ---
HPI - General Adult General Chief complaint: Abdominal Pain Stated complaint: weakness diarrhea Time Seen by Provider: 03/16/25 15:23 Source: patient Mode of arrival: ambulatory Limitations: no limitations History of Present Illness ED Provider: Dr. Lomas HPI narrative: 60-year-old male history of rectal cancer currently ongoing chemotherapy presented hospital today for nausea vomiting and fatigue. Patient stated he did have episode of diarrhea earlier today. Patient was sent in by the oncology team for further evaluation due to not feeling well. They were concerned about possible small-bowel obstruction. Patient stated that he has similar sensation last week however improved with IV fluid hydration electrolyte repletion. However yesterday at this got worse all of a sudden. Denies any fever. However does endorse some chills. Related Data Home Medications ?Medication ?Instructions ?Recorded ?Confirmed amlodipine 5 mg tablet 5 mg PO DAILY 12/09/23 01/16/25 clonazepam 1 mg tablet 1 mg PO BEDTIME PRN Anxiety 12/09/23 01/16/25 lamotrigine 200 mg tablet 250 mg PO DAILY 12/09/23 01/16/25 methylphenidate HCl 10 mg tablet 10 mg PO DAILY 12/09/23 01/16/25 methylphenidate HCl 54 mg 54 mg PO QAM 12/09/23 01/16/25 tablet,extended release 24 hr metoprolol succinate 50 mg 50 mg PO DAILY 12/09/23 01/16/25 tablet,extended release 24 hr risperidone 1 mg tablet (Risperdal) 1 mg PO BEDTIME 12/09/23 01/16/25 Previous Rx's ?Medication ?Instructions ?Recorded dexamethasone 4 mg tablet 4 mg PO BID #60 tabs 01/09/24 ondansetron 8 mg disintegrating 8 mg PO Q8H #60 tabs 02/08/24 tablet magnesium oxide 400 mg PO DAILY #30 caps 03/13/24 barium sulfate 2 % (w/v) oral 450 ml PO BID #900 mL 07/24/24 suspension (Readi-Cat 2) omeprazole 20 mg capsule,delayed 20 mg PO DAILY #30 caps 07/31/24 release hydroxyzine HCl 25 mg tablet 25 mg PO TID PRN Itching #30 tabs 10/02/24 potassium chloride 10 mEq 20 meq (2 x 10 mEq) PO DAILY #90 11/16/24 capsule,extended release caps simethicone 80 mg chewable tablet 80 mg PO BID PRN Abdominal 11/16/24 bloating #30 tabs oxycodone 5 mg tablet 5 mg PO Q8H PRN Breakthrough Pain, 01/16/25 Severe #40 tabs diphenoxylate-atropine 2.5 1 tab PO DAILY PRN Diarrhea #30 02/14/25 mg-0.025 mg tablet (Lomotil) tabs apixaban 5 mg tablet (Eliquis) 5 mg PO BID #180 tabs 02/27/25 amlodipine 5 mg tablet 5 mg PO DAILY #90 tabs 03/15/25 potassium chloride 20 mEq 20 meq PO DAILY #90 tabs 03/15/25 tablet,extended release Allergies Allergy/AdvReac Type Severity Reaction Status Date / Time No Known Allergies (No Known Allergy Verified 03/16/25 14:41 Allergies*) Review of Systems Review of Systems: Pertinent review of systems as mentioned in HPI. All other system otherwise negative. [facility] Past Medical History [facility] Narrative: Medical history as mentioned in HPI Medical History Port-A-Cath in place H/O sigmoidoscopy Elective surgery Marijuana smoker Chronic back pain Anxiety History of obesity Diabetes mellitus Hypertension Neoplasm of rectosigmoid junction Surgical History History of flexible sigmoidoscopy (~12/14/23) H/O oral surgery No pertinent past surgical history Family History Family History Other Family history unknown Social History Social History Household Members: Spouse Patient Tobacco Use Status: Never used Tobacco Smoked in Last 30 Days: No Use of substances other than those prescribed or required for medical reasons: Yes Substance Use Type: Marijuana Advance Directives: Yes Advance Directives on File: Yes Advance Directives Date on File: 03/13/24 Do you have a plan to hurt others: No Plan service: No Current occupational status: disabled Physical Exam ED Exam Exam: General: Pleasant, no distress, interacting appropriately Head: Normacephalic, atraumatic ENT: oral mucosa dry, neck supple, no tracheal deviation Cardiovascular: regular rate, regular rhythm, no murmurs, rubbing, gallops Respiratory: CTAB, no wheeze, rales, rhonchi Gastrointestinal: Soft, non distended, diffuse tenderness on palpation no guarding Extremities: No limb pain or swelling, no calf tenderness Neurological: Awake and alert, no facial droop noted Skin: Warm and dry Psychiatric: Appropriate mood and thoughts Vital Signs: Vital Signs - 24 hr 03/16/25 14:40 03/16/25 14:41 03/16/25 16:32 Temperature 99.0 F 99.0 F Pulse Rate 98 98 Respiratory Rate 16 16 16 Blood Pressure 131/84 131/84 Pulse Oximetry 94 94 Oxygen Delivery Method Room Air Room Air 03/16/25 17:16 03/16/25 18:02 Temperature Pulse Rate 88 Respiratory Rate 14 14 Blood Pressure 141/72 H Pulse Oximetry 95 Oxygen Delivery Method Room Air BMI result Body Mass Index 26.9 Medications Administered Generic Name Dose Route Start Last Admin Trade Name Freq PRN Reason Stop Dose Admin Vancomycin HCl 2,000 mg in 500 mls @ 250 mls/hr 03/16/25 16:30 03/16/25 17:41 Vancomycin/Ns IV 03/16/25 18:29 250 mls/hr ONCE ONE Administration Discontinued Medications Generic Name Dose Route Start Last Admin Trade Name Freq PRN Reason Stop Dose Admin Hydromorphone HCl 0.5 mg 03/16/25 15:45 03/16/25 16:32 Hydromorphone Hcl 0.5 Mg/0.5 Ml Syringe IVPUSH 03/16/25 15:46 0.5 mg ONCE ONE Administration Protocol Hydromorphone HCl 0.5 mg 03/16/25 17:45 03/16/25 18:02 Hydromorphone Hcl 0.5 Mg/0.5 Ml Syringe IVPUSH 03/16/25 17:46 0.5 mg ONCE ONE Administration Protocol Sodium Chloride 1,000 mls @ 999 mls/hr 03/16/25 15:45 03/16/25 18:02 Ns IV 03/16/25 16:45 Infused .Q1H1M RACHEL Infusion Cefepime HCl 2 gm in 50 mls @ 100 mls/hr 03/16/25 16:11 03/16/25 17:40 Maxipime IV 03/16/25 16:40 Infused ONCE ONE Infusion Iohexol 100 ml 03/16/25 17:02 03/16/25 17:02 Iohexol 350 Mg/Ml 100 Ml Infus..Btl IV 03/16/25 17:03 85 ml ONCE ONE Administration Ondansetron HCl 4 mg 03/16/25 15:45 03/16/25 16:32 Ondansetron Hcl 4 Mg/2 Ml Vial IVPUSH 03/16/25 15:46 4 mg ONCE ONE Administration Medical Decision Making Medical Decision Making [facility] Narrative: 60-year-old male history of rectal cancer presented hospital today for nausea vomiting and abdominal pain CT imaging was obtained to evaluate for any signs of SBO or possible intra-abdominal infection. Review patient's lab work. Patient has WBC of 1.1 neutrophil presented to 19.4. Patient is neutropenic. Potassium 3.1. This will be repleted. Patient's lactic acid is not elevated. Patient will be given a bolus IV fluid IV Zofran. IV Dilaudid will be given the patient as well. On exam patient does feel warm to touch. Vancomycin cefepime will be initiated for the patient. Discussed the case with patient's [id number] and . CT imaging does show narrowing of the rectosigmoid lumen. Signs of colitis. Patient will be admitted to the hospital for suspected neutropenic fever. Patient's symptom has improved after IV medication. Differential Diagnosis Differential Diagnoses: The differential diagnosis associated with the presentation includes Colitis, small-bowel obstruction, neutropenic fever, sepsis Consult Healthcare Provider Management of the patient was discussed with: Hospitalist Lab Data [facility] Lab Attestation statement: I reviewed the patient's lab results. 03/16/25 15:34 03/16/25 15:34 Labs: Lab Results 03/16/25 03/16/25 Range/Units 15:34 15:58 WBC 1.1 L (4.8-10.8) X10*3/uL RBC 4.67 (4.60-5.80) X10*6/uL Hgb 13.5 L (14.0-18.0) g/dl Hct 39.9 L (42.0-52.0) % MCV 85.4 (80.0-98.0) fL MCH 28.9 (27.0-33.0) pg MCHC 33.8 (31.0-36.0) g/dl RDW 14.6 (11.0-16.0) % Plt Count 181 (160-400) X10*3/uL MPV 8.8 L (9.4-12.4) fL Immature Gran % (Auto) 1.9 H (0.0-0.4) % Neut % (Auto) 19.4 L (45-73) % Lymph % (Auto) 42.6 H (20-40) % [place] % (Auto) 34.3 H (2-11) % Eos % (Auto) 0.9 (0-4) % Baso % (Auto) 0.9 (0-2) % Lymph # (Auto) 0.5 L (1.2-4.9) X10*3/uL [place] # (Auto) 0.4 (0.1-1.2) X10*3/uL Eos # (Auto) 0.0 (0.0-0.4) X10*3/uL Baso # (Auto) 0.0 (0.0-0.2) X10*3/uL Abs Immat Gran (auto) 0.02 (0.00-0.03) X10*3/uL Absolute Neuts (auto) 0.2 L (2.0-8.3) x10*3/uL Absolute Nucleated RBC 0.020 H (0.0-0.012) X10*3/uL Nucleated RBC % (auto) 1.9 H (0.0-0.2) /100WBC Sodium 134 L (135-145) mmol/L Potassium 3.1 L (3.3-5.1) mmol/L Chloride 100 (96-108) mmol/L Carbon Dioxide 22 (22-29) mmol/L Anion Gap 15 (12-20) BUN 9 (9-16) mg/dL Creatinine 0.50 (0.5-1.4) mg/dL Estim Creat Clear Calc 180.3 Estimated GFR > 60 Random Glucose 128 H (60-115) mg/dL Lactic Acid 1.2 (0.5-2.0) mmol/L Calcium 8.3 L (8.4-10.2) mg/dL Magnesium 1.7 (1.6-2.6) mg/dL Total Bilirubin 1.2 H (0.0-1.0) mg/dL AST 25 (5-37) U/L ALT 14 (0-40) U/L Alkaline Phosphatase 71 (39-117) U/L Total Protein 5.6 L (6.5-8.0) g/dL Albumin 3.6 (3.5-5.0) g/dL Independent Interpretation I performed an independent interpretation of an: CT Scan Radiology Impression Discussion of test interpretation with radiology: I have reviewed the radiologist's reading. External Record Review External record reviewed: Office record Chronic Conditions Rectal cancer Critical Care Time Critical Care Time Critical Care Time: Yes Total Critical Care Time: 36 Attestation: Diagnosis Neutropenic fever Time is exclusive of separately billable procedures. Time includes: direct patient care, patient reassessment, coordination of patient care, interpretation of data (laboratory data, pulse oximetry, arterial blood gases and chest xrays), review of patient's medical records, medical consultation and documentation of patient care. Procedures excluded from critical care time: central intravenous line placement and electrocardiography. Discharge Plan Discharge Clinical Impression: Neutropenia with fever, Neoplasm of rectosigmoid junction, Colitis Patient Disposition: Admitted As Inpatient Print Language: Angolan
[2025-03-16 15:53] LABS: Hematocrit 39.9 % (42.0-52.0); Hemoglobin 13.5 g/dl (14.0-18.0); Imm Gran Abs Auto 0.02 X10*3/uL (0.00-0.03); Imm Gran Pct Auto 1.9 % (0.0-0.4); Lymphocytes Absolute Auto 0.5 X10*3/uL (1.2-4.9); MANUAL DIFF FLAG SCAN; Mean Corpuscular HGB Conc 33.8 g/dl (31.0-36.0); Mean Corpuscular Hemoglobin 28.9 pg (27.0-33.0); Mean Corpuscular Volume 85.4 fL (80.0-98.0); NRBC Abs Auto 0.020 X10*3/uL (0.0-0.012); NRBC Pct Auto 1.9 /100WBC (0.0-0.2); Platelet Count 181 X10*3/uL (160-400); Red Blood Count 4.67 X10*6/uL (4.60-5.80); SCAN SMEAR FLAG 1; White Blood Count 1.1 X10*3/uL (4.8-10.8)
[2025-03-16 16:11] LABS: Alanine Aminotransferase 14 U/L (0-40); Albumin Level 3.6 g/dL (3.5-5.0); Alkaline Phosphatase 71 U/L (39-117); Anion Gap 15 (12-20); Aspartate Amino Transferase 25 U/L (5-37); Blood Urea Nitrogen 9 mg/dL (9-16); Calcium 8.3 mg/dL (8.4-10.2); Carbon Dioxide 22 mmol/L (22-29); Chloride 100 mmol/L (96-108); Creatinine Clr Calc Pharmacy 180.3; Estimated Glomerular Filt Rate > 60; Magnesium 1.7 mg/dL (1.6-2.6); Potassium 3.1 mmol/L (3.3-5.1); Sodium 134 mmol/L (135-145); Total Protein 5.6 g/dL (6.5-8.0)
[2025-03-16] MEDS: cefEPime HCl/D5W 2 GM/50 ML PIGGYBACK IV (16:31)
[2025-03-16] MEDS: iohexoL 350 MG/ML 100 ML INFUS..BTL IV (17:02)
--- NOTE | 2025-03-16 17:17 | PC.NURSE ---
Patient presents to ED from oncology. Patient received chemo last week and reports feeling unwell this week. C/o ABD pain rated 7/10 radiates down. No BM for 2 days. Provider believes patient may have bowel obstruction. Patient port has been accessed. Patient had CT scans performed, awaiting results
[2025-03-16] MEDS: vancomycin/NS 2,000 MG/500 ML PLAST..BAG 250 MG IV (17:41)
--- NOTE | 2025-03-16 19:10 | PM.IMHP ---
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 Patient's symptoms include nausea, vomiting, chills, extreme fatigue and 1 episode of diarrhea earlier in the day. Patient's last chemotherapy was Wednesday. Patient has started having symptoms similar to above over the weekend and was seen in the Oncology Clinic on Wednesday and received IV hydration and IV Zofran with good effect. Patient overall did not improve and was seen in the oncology clinic today. Patient has not had any recent travel were been exposed to anyone with illness. Workup in the ED included CT scan of the abdomen and pelvis and patient has clear evidence of colitis. Chest x-ray indicative of possible pneumonia as well in the left lower lobe Patient also neutropenic based on lab values and coming in with a low-grade temp with a white count of 1.1. Absolute Neutrophils 0.2. No bandemia noted. Blood pressure on arrival was 116/80 with a heart rate of 95 and a temp of a 100 degrees. Patient was never hypoxic and has remained on room air with sats 94-95%. Patient being admitted for colitis and neutropenia. Review of Systems Review of Systems: Patient currently awake but restless, wanting to sleep but can not. Patient is experiencing extreme fatigue and distention in his belly with mild abdominal pain. Patient is also having intermittent nausea but no vomiting. Patient has had no diarrhea since arrival to the ED. patient denies any edema or lower leg pain. Patient is not having any headaches and denies any difficulty swallowing. Yes all other systems are reviewed and are negative [facility] Medical History Port-A-Cath in place H/O sigmoidoscopy Elective surgery Marijuana smoker Chronic back pain Anxiety History of obesity Diabetes mellitus Hypertension Neoplasm of rectosigmoid junction Cognitive capacity: Alert and orientated x3 Functional capacity: wheelchair bound Family History Other Family history unknown Surgical History History of flexible sigmoidoscopy (~12/14/23) H/O oral surgery No pertinent past surgical history Social History Household Members: Spouse Patient Tobacco Use Status: Never used Tobacco Smoked in Last 30 Days: No Use of substances other than those prescribed or required for medical reasons: Yes Substance Use Type: Marijuana Advance Directives: Yes Advance Directives on File: Yes Advance Directives Date on File: 03/13/24 Do you have a plan to hurt others: No Plan service: No Current occupational status: disabled Ebola Risk: Travel/Contact With Anyone From Affected Area/s: No Has Patient Experienced Ebola Symptoms: No Meds Allergies Allergy/AdvReac Type Severity Reaction Status Date / Time No Known Allergies (No Known Allergy Verified 03/16/25 14:41 Allergies*) Active Medications: Current Medications Potassium Chloride (Potassium Chloride/H20) 10 meq in 100 mls @ 100 mls/hr IV Q1H RACHEL Stop: 03/16/25 20:14 Home Medications ?Medication ?Instructions ?Recorded ?Confirmed ?Last Taken ?Type amlodipine 5 mg tablet 5 mg PO BEDTIME 12/09/23 03/16/25 03/15/25 History clonazepam 1 mg tablet 1 mg PO BEDTIME PRN Anxiety 12/09/23 03/16/25 12/28/23 History lamotrigine 200 mg tablet 300 mg PO DAILY 12/09/23 03/16/25 03/16/25 History methylphenidate HCl 10 mg tablet 10 mg PO DAILY 12/09/23 03/16/25 03/16/25 History methylphenidate HCl 54 mg 54 mg PO DAILY 12/09/23 03/16/25 03/16/25 History tablet,extended release 24 hr metoprolol succinate 50 mg 50 mg PO DAILY 12/09/23 03/16/25 03/16/25 History tablet,extended release 24 hr risperidone 1 mg tablet (Risperdal) 1 mg PO BEDTIME 12/09/23 03/16/25 03/15/25 History apixaban 5 mg tablet (Eliquis) 5 mg PO BID@0500,1700 03/16/25 03/16/25 03/16/25 History barium sulfate 2 % (w/v) oral 450 ml PO BID PRN cat scan 03/16/25 03/16/25 Unknown History suspension (Readi-Cat 2) dexamethasone 4 mg tablet 4 mg PO WETH with chemotherapy 03/16/25 03/16/25 03/15/25 History omeprazole 20 mg capsule,delayed 20 mg PO BEDTIME 03/16/25 03/16/25 03/15/25 History release ondansetron 8 mg disintegrating 8 mg PO Q8H PRN Nausea And Vomiting 03/16/25 03/16/25 Unknown History tablet Physical Exam Vital Signs and Narrative: Vital Signs: Last Vital Signs Temp 99.1 F 03/16/25 19:06 Pulse 84 03/16/25 19:06 Resp 14 03/16/25 19:06 BP 144/66 H 03/16/25 19:06 Pulse Ox 95 03/16/25 19:06 O2 Del Method Room Air 03/16/25 19:06 BMI result Body Mass Index 26.9 Alert and orientated X3, unable to give good history. Was able to follow commands and explained specific symptoms. Neuro: CN II-X11 intact, no deficits, visual acuity intact EYES: PERRLA, EOM intact, sclerae nonicteric ENT: hearing intact, no issues with swallowing, uvula midline, lips moist, nares patent no epistaxis Cardiac: S1 S2 RRR, no murmur, no JVD, trace edema in Lower ext Pulmonary: lungs diminished bilaterally Abdominal: , distended tympanic and warm, bowel sounds can be heard MSK: strength 3/5 upper and lower extremities, patient can move himself on the stretcher : no CVA tenderness no bladder distension Extremities: Trace edema in lower extremities, PT and DP pulses palpable +2 Psych: mood stable, judgement and insight fair Skin: No new rashes or lesions Results Labs 03/16/25 15:34 03/16/25 15:34 Labs: Laboratory Results - last 24 hr 03/16/25 03/16/25 15:34 15:58 MCV 85.4 MCH 28.9 MCHC 33.8 RDW 14.6 Plt Count 181 MPV 8.8 L Immature Gran % (Auto) 1.9 H Neut % (Auto) 19.4 L Lymph % (Auto) 42.6 H [place] % (Auto) 34.3 H Eos % (Auto) 0.9 Baso % (Auto) 0.9 Lymph # (Auto) 0.5 L [place] # (Auto) 0.4 Eos # (Auto) 0.0 Baso # (Auto) 0.0 Abs Immat Gran (auto) 0.02 Absolute Neuts (auto) 0.2 L Absolute Nucleated RBC 0.020 H Nucleated RBC % (auto) 1.9 H Anion Gap 15 Estim Creat Clear Calc 180.3 Estimated GFR > 60 Random Glucose 128 H Lactic Acid 1.2 Calcium 8.3 L Magnesium 1.7 Total Bilirubin 1.2 H AST 25 ALT 14 Alkaline Phosphatase 71 Total Protein 5.6 L Albumin 3.6 ECG Prior ECG tracings: not available for review Imaging Radiologist's Impressions: Impressions Chest X-Ray 03/16/25 15:46 IMPRESSION: 1. Chest port in good position. 2. Low lung volumes. Patchy opacity left lung base, in keeping with pneumonia in the appropriate clinical setting. 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 Patient diagnosed with colitis and pneumonia and is being admitted with neutropenic precautions. Colitis Patient is started on vancomycin and cefepime GI consulted NPO for bowel rest IV fluids for hydration Dilaudid for pain management Neutropenia Neutropenic precautions are in place Monitor vital signs closely CBC with differential daily Pneumonia Left lower lobe opacity Patient is on vanco and cefepime Duo nebs p.r.n Oxygen p.r.n., patient currently on room air with no evidence of hypoxia since admission Incentive spirometer Antitussives p.r.n. Stage IV rectosigmoid cancer with metastases to the kidney, liver and lungs Patient managed by Oncology Plan for chemotherapy per Oncology Continue hydration Continue neutropenic precautions HX of PE Continue Eliquis No evidence of active blood loss DVT prophylaixs: ELiquis MED REC completed DNR DNI Quality Stroke Does the patient have a stroke diagnosis?: No Reason for No Anti-thrombotic by Day Two: N/A - Med Ordered VTE Prior VTE?: No VTE Risk Level:: Medical - moderate - high VTE Device Contraindication: N/A - Device Ordered VTE Drug Contraindication: N/A - Med Ordered
[2025-03-16] MEDS: Potassium Chloride/H20 10 MEQ/100 ML PIGGYBACK 100 MEQ IV ×2 (19:18→20:08)
[2025-03-16] MEDS: diazePAM 10 MG/2 ML CARTRIDGE IVPUSH (20:15)
--- NOTE | 2025-03-16 21:21 | PHA.MEDREC ---
Addendum entered by Sergio Alvarez [facility] 03/16/25 21:40: Reviewed by [facility]. Readi Cat prn for CT SCAN, 1.5 tabs of Lamitical daily (300mg). Original Note: Pharmacy Consult ? Medication Reconciliation Pharmacy has completed the medication reconciliation. Spoke with pt spouse at bedside and she confirmed the pt medications. Spouse confirmed pt, takes his Amlodipine at bedtime, Eliquis BID strictly at 0500,1700, Redi-Cat 2 PRN for nauses, Dexamethazone WE + TH after pt has Chemotherapy on Tuesdays, Omeprazole at bedtime and still has Ondansetron tabs at home PRN nausea/vomiting.
--- NOTE | 2025-03-17 00:20 | PC.NURSE ---
Patient refused to take one time dose po eliquis ordered in ED. pt reports he takes eliquis stricly 5am/5pm. Dr. Parra notified.
[2025-03-17 03:30] VITALS: BP 111/60; PULSE 98; RESP 18; TEMP 36.7; O2SAT 93
[2025-03-17 05:30] VITALS: BMI 25.3
[2025-03-17 06:29] LABS: Hematocrit 40.0 % (42.0-52.0); Hemoglobin 14.1 g/dl (14.0-18.0); Mean Corpuscular HGB Conc 35.3 g/dl (31.0-36.0); Mean Corpuscular Hemoglobin 29.3 pg (27.0-33.0); Mean Corpuscular Volume 83.0 fL (80.0-98.0); NRBC Abs Auto 0.050 X10*3/uL (0.0-0.012); Platelet Count 187 X10*3/uL (160-400); Red Blood Count 4.82 X10*6/uL (4.60-5.80); WBC ABN SCTR FOR CBC 1
[2025-03-17 06:30] LABS: NRBC Pct Auto 4.9 /100WBC (0.0-0.2); White Blood Count 1.0 X10*3/uL (4.8-10.8)
[2025-03-17 06:41] LABS: Alanine Aminotransferase 16 U/L (0-40); Albumin Level 3.4 g/dL (3.5-5.0); Alkaline Phosphatase 74 U/L (39-117); Anion Gap 15 (12-20); Aspartate Amino Transferase 32 U/L (5-37); Blood Urea Nitrogen 11 mg/dL (9-16); Calcium 8.4 mg/dL (8.4-10.2); Carbon Dioxide 24 mmol/L (22-29); Chloride 100 mmol/L (96-108); Creatinine Clr Calc Pharmacy 140.9; Estimated Glomerular Filt Rate > 60; Potassium 3.6 mmol/L (3.3-5.1); Sodium 135 mmol/L (135-145); Total Protein 5.3 g/dL (6.5-8.0)
[2025-03-17 06:54] LABS: Atypical Lymphs Percent Manual 3 % (0-6); Band Neutrophils Percent 12 % (3-5); Lymphocytes Absolute Manual 0.4 X10*3/uL (1.2-4.9); Lymphocytes Percent Manual 36 % (20-40); Metamyelocytes Percent 2 %; Monocytes Absolute Manual 0.4 X10*3/uL (0.1-1.2); Monocytes Percent Manual 44 % (2-11); Neutrophils Absolute Manual 0.2 X10*3/uL (2.0-8.3); Neutrophils Percent Manual 3 % (45-73)
[2025-03-17 06:56] LABS: Dohle Bodies PRESENT; Large Platelet PRESENT; Polychromasia 1+ (0-2) /OIF; RBC Morphology NOTED; Toxic Granulation PRESENT
[2025-03-17 07:35] VITALS: BP 145/85; PULSE 108; RESP 16; TEMP 36.3; O2SAT 95
[2025-03-17] MEDS: Potassium Chloride ER 10 MEQ TABLET.ER 20 MEQ PO (07:57)
[2025-03-17] MEDS: Metoprolol Succinate ER 50 MG TAB.ER.24H PO (07:57)
[2025-03-17] MEDS: 0.9 % Sodium Chloride Flush 3 ML SYRINGE IVFLUSH ×3 (07:59→20:40)
[2025-03-17] MEDS: cefEPime HCl/D5W 2 GM/50 ML PIGGYBACK IV ×2 (08:07→15:33)
--- NOTE | 2025-03-17 09:29 | PM.GICN ---
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 Pt was sent to the ER by Oncology with concerns for possible small bowel obstruction. Patient's last chemotherapy was Wednesday. Patient has started having symptoms similar to above over the weekend and was seen in the Oncology Clinic on Wednesday and received IV hydration and IV Zofran with good effect. Patient overall did not improve and was seen in the oncology clinic yesterday. Pt complains of lower abdominal pain and bloating with visible distention of the abdomen He complains of continued diarrhea with 2 loose to watery non-bloody BMs today Patient denied recent antibiotic use travel or being exposed to anyone with illness. Patient stated that he has similar sensation last week however improved with IV fluid hydration electrolyte repletion. However yesterday at this got worse all of a sudden. Pt denied fever. History of PE evident on chest CT from 01/01 and started on Eliquis 5 mg PO BID on 01/04/25. 03/16/[address] SCAN SHOWED: 1. There is thickening of the wall of the rectum compatible with neoplasm, similar to the prior study. Focal luminal narrowing at the rectosigmoid junction is also similar to the prior exam. There is new colonic dilatation raising the possibility of a partial degree of obstruction at the level of the rectum. Alternatively, this may be secondary to ileus and/or an inflammatory process. 2. There is possible colitis involving a portion of the sigmoid colon. 3. Multiple low-density lesions within the liver without change. PAST GI HX BY REVIEW OF MEDICAL RECORDS: PATIENT WAS SEEN BY ONCOLOGY IN 11/2023: PT complained of decreased appetite with wt loss of about 15 lb every 3 months. He initially had constipation followed by loose bowels on and off. He would go 3 to 4 times a day. He denied any abdominal pain symptoms. CT scan of the abdomen pelvis from 12/06 revealed: 1. Masslike wall thickening of the rectosigmoid junction involving approximately 8 cm segment measuring up to 2.3 cm in thickness. Findings compatible with a primary colon carcinoma. 2. Multiple enlarged distal pericolonic and perirectal lymph nodes measuring up to 1.6 cm on the right. Additional enlarged upper abdominal lymph nodes. Findings compatible with metastatic disease. 3. Innumerable lesions throughout the liver, largest in segment 7 near the dome measuring approximately 5 cm times 5 cm. 4. 9 mm nodule to the left lower lobe. Findings concerning be for metastatic disease. He underwent a flexible sigmoidoscopy on 12/[address] Haro. The exam revealed: Digital rectal exam there was a palpable bulky mass in the distal rectum. At about 5 cm there was note dated a bulky circumferential and friable mass. He was able to advance the scope through. The mass seemed to extend from about 5 cm to 12 cm. Biopsy was taken Pathology revealed: Tubular adenoma with high-grade dysplasia/intramucosal adenocarcinoma. Pt was started on FOLFOX with panitumumab on 01/01/24. Six cycle was due on 03/28/24. He received the Vectibix. He then had a reaction to oxaliplatin and was sent to the ED. Started on FOLFIRI and Vectibix, on 04/11/24. Review of Systems Review of Systems: Yes all other systems are reviewed and are negative [facility] Past Medical History Medical History (Updated 03/19/25 @ 15:49 by Shay Haro MD) Abdominal distention Port-A-Cath in place H/O sigmoidoscopy Elective surgery Marijuana smoker Chronic back pain Anxiety History of obesity Diabetes mellitus Hypertension Neoplasm of rectosigmoid junction Family History Family History Other Family history unknown Surgical History Surgical History History of flexible sigmoidoscopy (~12/14/23) H/O oral surgery No pertinent past surgical history Social History Social History Household Members: Spouse Housing: House Do you presently have visiting nurse or other home services: No Patient Tobacco Use Status: Never used Tobacco Substance Use Type: Marijuana Advance Directives Date on File: 03/13/24 service: No Current occupational status: disabled Travel History Ebola Risk: Travel/Contact With Anyone From Affected Area/s: No Has Patient Experienced Ebola Symptoms: No Meds Allergies Allergy/AdvReac Type Severity Reaction Status Date / Time No Known Allergies (No Known Allergy Verified 03/16/25 14:41 Allergies*) Active Medications: Current Medications Acetaminophen (Acetaminophen 325 Mg Tablet) 650 mg PO Q6H PRN PRN Reason: Pain, Mild 1-3,fever,headache Albuterol/Ipratropium (Albuterol/Iprat 2.5/0.5mg 3 Ml Ampul.Neb) 3 ml INHALE Q4H PRN PRN Reason: Shortness of Breath/Wheezing Amlodipine Besylate (Amlodipine Besylate 5 Mg Tablet) 5 mg PO BEDTIME [facility]; Protocol Last Admin: 03/16/25 22:44 Dose: 5 mg Apixaban (Apixaban 5 Mg Tablet) 5 mg PO BID@0500,1700 [facility] Last Admin: 03/17/25 05:48 Dose: 5 mg Calcium Carbonate (Calcium Carbonate 750 Mg Tab.Chew) 750 mg PO Q4H PRN PRN Reason: Heartburn Clonazepam (Clonazepam 1 Mg Tablet) 1 mg PO BEDTIME PRN PRN Reason: Anxiety Dexamethasone (Dexamethasone 4 Mg Tablet) 4 mg PO WETH RACHEL Diazepam (Diazepam 10 Mg/2 Ml Cartridge) 10 mg IVPUSH Q6H PRN PRN Reason: Anxiety Diphenoxylate HCl/Atropine (Diphenoxylate/Atrop 2.5/0.025 Tablet) 1 tab PO DAILY PRN PRN Reason: Diarrhea Hydromorphone HCl (Hydromorphone Hcl 0.5 Mg/0.5 Ml Syringe) 0.5 mg IVPUSH Q4H PRN; Protocol PRN Reason: Pain, Severe (Pain Scale 7-10) Last Admin: 03/17/25 08:06 Dose: 0.5 mg Hydroxyzine HCl (Hydroxyzine Hcl 25 Mg Tablet) 25 mg PO TID PRN PRN Reason: Itching Sodium Chloride (Ns) 1,000 mls @ 100 mls/hr IVCONT .Q10H [facility] Last Admin: 03/17/25 07:53 Dose: 100 mls/hr Vancomycin HCl 1,500 mg/ (Sodium Chloride) 500 mls @ 333.333 mls/hr IV Q12H [facility] Last Infusion: 03/17/25 08:00 Dose: Infused Cefepime HCl (Maxipime) 2 gm in 50 mls @ 100 mls/hr IV Q8H [facility] Last Admin: 03/17/25 08:07 Dose: 100 mls/hr Lamotrigine (Lamotrigine 100 Mg Tablet) 250 mg PO DAILY [facility] Last Admin: 03/17/25 07:58 Dose: 250 mg Magnesium Hydroxide (Milk Of Magnesia 30 Ml Oral.Susp) 30 ml PO DAILY PRN PRN Reason: Constipation Magnesium Oxide (Magnesium Oxide 400 Mg Tablet) 400 mg PO DAILY [facility] Last Admin: 03/17/25 07:57 Dose: 400 mg Melatonin (Melatonin 3 Mg Tablet) 6 mg PO BEDTIME PRN PRN Reason: Insomnia Methylphenidate HCl (Methylphenidate Hcl 10 Mg Tablet) 10 mg PO DAILY [facility] Last Admin: 03/17/25 07:57 Dose: 10 mg Metoprolol Succinate (Metoprolol Succinate Er 50 Mg Tab.Er.24h) 50 mg PO DAILY [facility]; Protocol Last Admin: 03/17/25 07:57 Dose: 50 mg Omeprazole (Omeprazole 20 Mg Capsule.Dr) 20 mg PO BEDTIME [facility] Ondansetron HCl (Ondansetron Hcl 4 Mg/2 Ml Vial) 4 mg IVPUSH Q8H PRN PRN Reason: Nausea and Vomiting Pharmacy Consult (Consult Rx Vancomycin Dosing) 1 each MISCELLANE DAILY PRN PRN Reason: Consult order Polyethylene Glycol (Polyethylene Glycol 3350 17 Gm Powd.Pack) 17 gm PO DAILY PRN PRN Reason: Constipation Potassium Chloride (Potassium Chloride Er 10 Meq Tablet.Er) 20 meq PO DAILY [facility] Last Admin: 03/17/25 07:57 Dose: 20 meq Risperidone (Risperidone 1 Mg Tablet) 1 mg PO BEDTIME [facility] Last Admin: 03/16/25 22:44 Dose: 1 mg Senna (Sennosides 8.6 Mg Tablet) 17.2 mg PO BEDTIME [facility] Last Admin: 03/16/25 21:28 Dose: Not Given Simethicone (Simethicone 80 Mg Tab.Chew) 80 mg PO BID PRN PRN Reason: Abdominal bloating Sodium Chloride (0.9 % Sodium Chloride Flush 3 Ml Syringe) 3 ml IVFLUSH QSHIFT [facility] Last Admin: 03/17/25 07:59 Dose: 3 ml Home Medications ?Medication ?Instructions ?Recorded ?Confirmed ?Last Taken ?Type amlodipine 5 mg tablet 5 mg PO BEDTIME 12/09/23 03/16/25 03/15/25 History clonazepam 1 mg tablet 1 mg PO BEDTIME PRN Anxiety 12/09/23 03/16/25 12/28/23 History lamotrigine 200 mg tablet 300 mg PO DAILY 12/09/23 03/16/25 03/16/25 History methylphenidate HCl 10 mg tablet 10 mg PO DAILY 12/09/23 03/16/25 03/16/25 History methylphenidate HCl 54 mg 54 mg PO DAILY 12/09/23 03/16/25 03/16/25 History tablet,extended release 24 hr metoprolol succinate 50 mg 50 mg PO DAILY 12/09/23 03/16/25 03/16/25 History tablet,extended release 24 hr risperidone 1 mg tablet (Risperdal) 1 mg PO BEDTIME 12/09/23 03/16/25 03/15/25 History apixaban 5 mg tablet (Eliquis) 5 mg PO BID@0500,1700 03/16/25 03/16/25 03/16/25 History barium sulfate 2 % (w/v) oral 450 ml PO BID PRN cat scan 03/16/25 03/16/25 Unknown History suspension (Readi-Cat 2) dexamethasone 4 mg tablet 4 mg PO WETH with chemotherapy 03/16/25 03/16/25 03/15/25 History omeprazole 20 mg capsule,delayed 20 mg PO BEDTIME 03/16/25 03/16/25 03/15/25 History release ondansetron 8 mg disintegrating 8 mg PO Q8H PRN Nausea And Vomiting 03/16/25 03/16/25 Unknown History tablet Physical Exam Vital Signs: Vital Signs: Last Vital Signs Temp 97.4 F 03/17/25 07:35 Pulse 108 H 03/17/25 07:35 Resp 16 03/17/25 07:35 BP 145/85 H 03/17/25 07:35 Pulse Ox 95 03/17/25 07:35 O2 Del Method Room Air 03/17/25 07:35 BMI result Body Mass Index 25.3 Const: General: no acute distress and ill appearing Nutritional Appearance: average body habitus Orientation/consciousness: patient oriented x3 HEENT: Head: Yes normal to inspection Ears: hearing grossly normal bilaterally Eyes: Sclerae: sclerae normal Pupils: Equal, round and reactive pupils present Neck: Neck: Yes normal visual inspection Chest: Chest palpation & inspection: normal inspection of the chest Resp: Effort & Inspection: normal respiratory effort Auscultation: clear to auscultation bilaterally Cardio: Palpation: normal PMI Rate: regular rate Rhythm: regular rhythm Heart sounds: S1 normal heart sound present, S2 normal heart sound present and no murmurs GI: Inspection: Yes distended Palpation (GI): Soft to palpation, Tenderness to palpation present (GI) (Mild lower abdominal tenderness) and No hepatosplenomegaly present Auscultation: normal bowel sounds Rectal Exam - Male: Yes deferred Skin: General skin exam: no rashes or lesions noted Neuro: General: patient oriented x3, gait normal and moves all extremities Cranial nerves: Yes Equal, round and reactive pupils present Psych: Appearance: grossly normal Mental Status: mental status grossly normal Results Labs 03/19/25 05:38 03/19/25 05:38 Labs: Short CBC 03/16/25 03/17/25 Range/Units 15:34 05:52 WBC 1.1 L 1.0 L (4.8-10.8) X10*3/uL Hgb 13.5 L 14.1 (14.0-18.0) g/dl Hct 39.9 L 40.0 L (42.0-52.0) % Plt Count 181 187 (160-400) X10*3/uL BMP 03/16/25 03/17/25 15:34 05:52 Sodium 134 L 135 Potassium 3.1 L 3.6 Chloride 100 100 Carbon Dioxide 22 24 BUN 9 11 Creatinine 0.50 0.64 Calcium 8.3 L 8.4 Liver Function 03/16/25 03/17/25 Range/Units 15:34 05:52 Total Bilirubin 1.2 H 2.1 H (0.0-1.0) mg/dL AST 25 32 (5-37) U/L ALT 14 16 (0-40) U/L Alkaline Phosphatase 71 74 (39-117) U/L Albumin 3.6 3.4 L (3.5-5.0) g/dL Assessment and Plan (1) Colitis: Status: Acute (2) Diarrhea: Status: Acute Plan 60 YM with hypertension, GERD, ADHD, 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 Pt was sent to the ER by Oncology with concerns for possible small bowel obstruction. Patient's last chemotherapy was Wednesday. Abd CT scan showed thickening of the wall of the rectum with focal luminal narrowing at the rectosigmoid junction compatible with neoplasm, similar to the prior study. There is new colonic dilatation raising the possibility of a partial degree of obstruction at the level of the rectum or secondary to ileus and/or an inflammatory process. There is possible colitis involving a portion of the sigmoid colon. Colonic dilation is likely due to obstruction from rectal cancer or neutropenic enterocolitis RECOMMENDATIONS: 1. Agree with keeping pt NPO on IVF, IV pain medications, antiemetics and antibiotics. 2. Check stool for C Diff and enteric pathogens - negative. 3. KUB in the am - ordered 4. Pt is scheduled for a flexible sigmoidoscopy with rectal stent placement on 03/20/[address] Gregg. Procedures Date of Service Date of Service: 03/19/25
--- NOTE | 2025-03-17 14:25 | P.PNIM_ITS ---
Subjective Subjective Date of Service: 03/17/25 Interval History: No acute issues overnight. Pain control adequate Review of Systems Denies chest pain Denies shortness of breath Denies nausea vomiting diarrhea Denies fever chills Physical Exam 2 Vital Signs: Vital Signs: Last Vital Signs Temp 97.4 F 03/17/25 07:35 Pulse 108 H 03/17/25 07:35 Resp 16 03/17/25 07:35 BP 145/85 H 03/17/25 07:35 Pulse Ox 95 03/17/25 07:35 O2 Del Method Room Air 03/17/25 07:35 BMI result Body Mass Index 25.3 Const: Other: Somnolent but arousable no acute distress Resp: Other: Clear to auscultation bilaterally no rales rhonchi or wheezes Cardio: Other: No S4; positive S1-S2; no S3 murmurs rubs or gallops GI: Other: Soft nontender nondistended quiet bowel sounds Extrem: Other: No edema bilaterally Objective Data Active Medications Acetaminophen (Acetaminophen 325 Mg Tablet) 650 mg PO Q6H PRN PRN Reason: Pain, Mild 1-3,fever,headache Albuterol/Ipratropium (Albuterol/Iprat 2.5/0.5mg 3 Ml Ampul.Neb) 3 ml INHALE Q4H PRN PRN Reason: Shortness of Breath/Wheezing Amlodipine Besylate (Amlodipine Besylate 5 Mg Tablet) 5 mg PO BEDTIME [facility]; Protocol Last Admin: 03/16/25 22:44 Dose: 5 mg Documented By: DEEPA Apixaban (Apixaban 5 Mg Tablet) 5 mg PO BID@0500,1700 [facility] Last Admin: 03/17/25 05:48 Dose: 5 mg Documented By: JIMY Calcium Carbonate (Calcium Carbonate 750 Mg Tab.Chew) 750 mg PO Q4H PRN PRN Reason: Heartburn Clonazepam (Clonazepam 1 Mg Tablet) 1 mg PO BEDTIME PRN PRN Reason: Anxiety Dexamethasone (Dexamethasone 4 Mg Tablet) 4 mg PO WETH RACHEL Diazepam (Diazepam 10 Mg/2 Ml Cartridge) 10 mg IVPUSH Q6H PRN PRN Reason: Anxiety Diphenoxylate HCl/Atropine (Diphenoxylate/Atrop 2.5/0.025 Tablet) 1 tab PO DAILY PRN PRN Reason: Diarrhea Hydromorphone HCl (Hydromorphone Hcl 0.5 Mg/0.5 Ml Syringe) 0.5 mg IVPUSH Q4H PRN; Protocol PRN Reason: Pain, Severe (Pain Scale 7-10) Last Admin: 03/17/25 08:06 Dose: 0.5 mg Documented By: ADA Hydroxyzine HCl (Hydroxyzine Hcl 25 Mg Tablet) 25 mg PO TID PRN PRN Reason: Itching Sodium Chloride (Ns) 1,000 mls @ 100 mls/hr IVCONT .Q10H [facility] Last Admin: 03/17/25 07:53 Dose: 100 mls/hr Documented By: ADA Vancomycin HCl 1,500 mg/ (Sodium Chloride) 500 mls @ 333.333 mls/hr IV Q12H [facility] Last Infusion: 03/17/25 08:00 Dose: Infused Documented By: ADA Cefepime HCl (Maxipime) 2 gm in 50 mls @ 100 mls/hr IV Q8H [facility] Last Infusion: 03/17/25 09:30 Dose: Infused Documented By: ADA Lamotrigine (Lamotrigine 100 Mg Tablet) 250 mg PO DAILY [facility] Last Admin: 03/17/25 07:58 Dose: 250 mg Documented By: ADA Magnesium Hydroxide (Milk Of Magnesia 30 Ml Oral.Susp) 30 ml PO DAILY PRN PRN Reason: Constipation Magnesium Oxide (Magnesium Oxide 400 Mg Tablet) 400 mg PO DAILY [facility] Last Admin: 03/17/25 07:57 Dose: 400 mg Documented By: ADA Melatonin (Melatonin 3 Mg Tablet) 6 mg PO BEDTIME PRN PRN Reason: Insomnia Methylphenidate HCl (Methylphenidate Hcl 10 Mg Tablet) 10 mg PO DAILY [facility] Last Admin: 03/17/25 07:57 Dose: 10 mg Documented By: ADA Metoprolol Succinate (Metoprolol Succinate Er 50 Mg Tab.Er.24h) 50 mg PO DAILY [facility]; Protocol Last Admin: 03/17/25 07:57 Dose: 50 mg Documented By: ADA Omeprazole (Omeprazole 20 Mg Capsule.Dr) 20 mg PO BEDTIME [facility] Ondansetron HCl (Ondansetron Hcl 4 Mg/2 Ml Vial) 4 mg IVPUSH Q8H PRN PRN Reason: Nausea and Vomiting Pharmacy Consult (Consult Rx Vancomycin Dosing) 1 each MISCELLANE DAILY PRN PRN Reason: Consult order Polyethylene Glycol (Polyethylene Glycol 3350 17 Gm Powd.Pack) 17 gm PO DAILY PRN PRN Reason: Constipation Potassium Chloride (Potassium Chloride Er 10 Meq Tablet.Er) 20 meq PO DAILY [facility] Last Admin: 03/17/25 07:57 Dose: 20 meq Documented By: ADA Risperidone (Risperidone 1 Mg Tablet) 1 mg PO BEDTIME [facility] Last Admin: 03/16/25 22:44 Dose: 1 mg Documented By: TUMASY Senna (Sennosides 8.6 Mg Tablet) 17.2 mg PO BEDTIME [facility] Last Admin: 03/16/25 21:28 Dose: Not Given Documented By: TESFAYE Non-Admin Reason: Patient Refused Simethicone (Simethicone 80 Mg Tab.Chew) 80 mg PO BID PRN PRN Reason: Abdominal bloating Sodium Chloride (0.9 % Sodium Chloride Flush 3 Ml Syringe) 3 ml IVFLUSH QSHIFT [facility] Last Admin: 03/17/25 07:59 Dose: 3 ml Documented By: ADA Labs 03/17/25 05:52 03/17/25 05:52 Labs: Laboratory Results - last 24 hr 03/16/25 03/16/25 03/17/25 15:34 15:58 05:52 MCV 85.4 83.0 MCH 28.9 29.3 MCHC 33.8 35.3 RDW 14.6 14.7 Plt Count 181 187 MPV 8.8 L 8.5 L Immature Gran % (Auto) 1.9 H Cancelled Neut % (Auto) 19.4 L Cancelled Lymph % (Auto) 42.6 H Cancelled Hendry % (Auto) 34.3 H Cancelled Eos % (Auto) 0.9 Cancelled Baso % (Auto) 0.9 Cancelled Lymph # (Auto) 0.5 L Cancelled Hendry # (Auto) 0.4 Cancelled Eos # (Auto) 0.0 Cancelled Baso # (Auto) 0.0 Cancelled Abs Immat Gran (auto) 0.02 Cancelled Absolute Neuts (auto) 0.2 L Cancelled Absolute Nucleated RBC 0.020 H 0.050 H Nucleated RBC % (auto) 1.9 H 4.9 H Neutrophils % (Manual) 3 L Band Neutrophils % 12 H Lymphocytes % (Manual) 36 Atypical Lymphs % (Man) 3 Monocytes % (Manual) 44 H Metamyelocytes % 2 Abs Neuts (Manual) 0.2 L Lymphocytes # (Manual) 0.4 L Monocytes # (Manual) 0.4 Nucleated RBCs 3 H Toxic Granulation PRESENT Dohle Bodies PRESENT Platelet Estimate NORMAL Large Platelets PRESENT Plt Morphology Comment NOTED RBC Morphology NOTED Polychromasia 1+ (0-2) Anion Gap 15 15 Estim Creat Clear Calc 180.3 140.9 Estimated GFR > 60 > 60 Random Glucose 128 H 113 Lactic Acid 1.2 Calcium 8.3 L 8.4 Magnesium 1.7 Total Bilirubin 1.2 H 2.1 H AST 25 32 ALT 14 16 Alkaline Phosphatase 71 74 Total Protein 5.6 L 5.3 L Albumin 3.6 3.4 L Assessment and Plan (1) Colitis: Status: Acute (2) Neoplasm of rectosigmoid junction: Status: Acute Plan Patient is a 60-year-old male with past medical history hypertension, GERD, ADHD, 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 Patient diagnosed with colitis and pneumonia and is being admitted with neutropenic precautions. 1.Colitis -Vanco/Cefipime(2) -GI consult appreciated -NPO/IVFs -Dilaudid for pain management 2. Neutropenia -Neutropenic precautions -oncology consult -CBC with differential daily 3.Left lower lobe opacity -vanco/cefepime(2) -Duo nebs p.r.n 4. Metastatic rectosigmoid mass -we will consult Oncology; question treat neutropenia 5.Hx PE -Eliquis DVT prophylaixs: ELiquis MED REC completed DNR DNI Quality Stroke Does the patient have a stroke diagnosis?: No Reason for No Anti-thrombotic by Day Two: N/A - Med Ordered VTE Prior VTE?: No VTE Risk Level:: Medical - moderate - high VTE Device Contraindication: N/A - Device Ordered VTE Drug Contraindication: N/A - Med Ordered
[2025-03-17 15:26] VITALS: BP 132/82; PULSE 98; RESP 18; TEMP 36.7; O2SAT 92
[2025-03-17 19:23] VITALS: BP 135/80; PULSE 92; RESP 17; TEMP 36; O2SAT 92
[2025-03-18] MEDS: cefEPime HCl/D5W 2 GM/50 ML PIGGYBACK IV ×4 (00:38→23:08)
[2025-03-18 03:23] VITALS: BP 137/89; PULSE 96; RESP 20; TEMP 36.2; O2SAT 94
[2025-03-18 07:01] LABS: Hematocrit 38.5 % (42.0-52.0); Hemoglobin 13.3 g/dl (14.0-18.0); Mean Corpuscular HGB Conc 34.5 g/dl (31.0-36.0); Mean Corpuscular Hemoglobin 28.7 pg (27.0-33.0); Mean Corpuscular Volume 83.2 fL (80.0-98.0); NRBC Abs Auto 0.000 X10*3/uL (0.0-0.012); NRBC Pct Auto 0.0 /100WBC (0.0-0.2); Platelet Count 227 X10*3/uL (160-400); Red Blood Count 4.63 X10*6/uL (4.60-5.80)
[2025-03-18 07:04] LABS: WBC ABN SCTR FOR CBC 1; White Blood Count 2.9 X10*3/uL (4.8-10.8)
[2025-03-18 07:24] VITALS: BP 144/83; PULSE 98; RESP 20; TEMP 36.6; O2SAT 93
[2025-03-18 07:25] LABS: Alanine Aminotransferase 11 U/L (0-40); Albumin Level 3.1 g/dL (3.5-5.0); Alkaline Phosphatase 65 U/L (39-117); Anion Gap 16 (12-20); Aspartate Amino Transferase 20 U/L (5-37); Blood Urea Nitrogen 16 mg/dL (9-16); Calcium 8.4 mg/dL (8.4-10.2); Carbon Dioxide 21 mmol/L (22-29); Chloride 98 mmol/L (96-108); Creatinine Clr Calc Pharmacy 161.0; Estimated Glomerular Filt Rate > 60; Potassium 3.1 mmol/L (3.3-5.1); Sodium 132 mmol/L (135-145); Total Protein 5.3 g/dL (6.5-8.0)
[2025-03-18] MEDS: Metoprolol Succinate ER 50 MG TAB.ER.24H PO (07:35)
[2025-03-18] MEDS: Potassium Chloride ER 10 MEQ TABLET.ER 20 MEQ PO (07:36)
[2025-03-18] MEDS: 0.9 % Sodium Chloride Flush 3 ML SYRINGE IVFLUSH ×3 (07:37→23:12)
--- NOTE | 2025-03-18 07:51 | PC.NURSE ---
Na 132 ,K 3.1 dr. Traylor made aware
[2025-03-18 08:05] LABS: Atypical Lymph Absolute Manual 0.1 x10*3/uL; Atypical Lymphs Percent Manual 2 % (0-6); Band Neutrophils Percent 16 % (3-5); Eosinophils Absolute Manual 0.1 X10*3/uL (0.0-0.4); Eosinophils Percent Manual 2 % (0-4); Lymphocytes Absolute Manual 0.8 X10*3/uL (1.2-4.9); Lymphocytes Percent Manual 27 % (20-40); Metamyelocytes Absolute 0.1 X10*3/uL; Metamyelocytes Percent 3 %; Monocytes Absolute Manual 1.0 X10*3/uL (0.1-1.2); Monocytes Percent Manual 33 % (2-11); Neutrophils Absolute Manual 1.0 X10*3/uL (2.0-8.3); Neutrophils Percent Manual 17 % (45-73)
[2025-03-18 08:07] LABS: Acanthocytes 1+ (0-2) /OIF; Basophilic Stippling 1+ (0-2) /OIF; Burr Cells 3+ (>5) /OIF; Large Platelet PRESENT; Macrocytosis 1+ (5-14) /OIF; Ovalocytes 1+ (5-14) /OIF; Polychromasia 1+ (0-2) /OIF; RBC Morphology NOTED
[2025-03-18 08:08] LABS: Dohle Bodies PRESENT; Toxic Granulation PRESENT; Toxic Vacuolation PRESENT
--- NOTE | 2025-03-18 12:19 | MHC.CM.PN ---
PT REPORTS HE LIVES WITH HIS WHO IS BEDSIDE HE IS INDEPENDENT WITH SELF CARE AND HAS BEEN USING A ROLLATOR HCP AND [facility] ON FILE PTS PCP RETIRED, HE HAS A NEW PT APPT SCHEDULED FOR 03/21/25 WITH HALIMA SANZ DCP: HOME VIA PRIVATE TRANSPORT
--- NOTE | 2025-03-18 12:40 | PC.NURSE ---
EMBEDDED CASE MANAGER Nidhi reported patient went to [facility] but unable to obtain specimen ,stool mixed with urine
--- NOTE | 2025-03-18 13:15 | HO.PM.IMPN ---
Subjective Subjective Date of Service: 03/18/25 Interval History: No acute issues overnight. Pain poorly controlled Review of Systems Denies chest pain Denies shortness of breath Denies nausea vomiting diarrhea Denies fever chills Physical Exam Vital Signs: Vital Signs: Last Vital Signs Temp 97.8 F 03/18/25 07:24 Pulse 98 03/18/25 07:24 Resp 20 03/18/25 07:24 BP 144/83 H 03/18/25 07:24 Pulse Ox 93 03/18/25 07:24 O2 Del Method Room Air 03/18/25 07:24 BMI result Body Mass Index 25.3 Const: Other: Somnolent but arousable no acute distress Resp: Other: Clear to auscultation bilaterally no rales rhonchi or wheezes Cardio: Other: No S4; positive S1-S2; no S3 murmurs rubs or gallops GI: Other: Soft nontender nondistended quiet bowel sounds Extrem: Other: No edema bilaterally Objective Data Active Medications Acetaminophen (Acetaminophen 325 Mg Tablet) 650 mg PO Q6H PRN PRN Reason: Pain, Mild 1-3,fever,headache Albuterol/Ipratropium (Albuterol/Iprat 2.5/0.5mg 3 Ml Ampul.Neb) 3 ml INHALE Q4H PRN PRN Reason: Shortness of Breath/Wheezing Amlodipine Besylate (Amlodipine Besylate 5 Mg Tablet) 5 mg PO BEDTIME [facility]; Protocol Last Admin: 03/17/25 20:38 Dose: 5 mg Documented By: HEATHER Apixaban (Apixaban 5 Mg Tablet) 5 mg PO BID@0500,1700 [facility] Last Admin: 03/18/25 04:43 Dose: 5 mg Documented By: HEATHER Calcium Carbonate (Calcium Carbonate 750 Mg Tab.Chew) 750 mg PO Q4H PRN PRN Reason: Heartburn Clonazepam (Clonazepam 1 Mg Tablet) 1 mg PO BEDTIME PRN PRN Reason: Anxiety Dexamethasone (Dexamethasone 4 Mg Tablet) 4 mg PO WETH RACHEL Diazepam (Diazepam 10 Mg/2 Ml Cartridge) 10 mg IVPUSH Q6H PRN PRN Reason: Anxiety Diphenoxylate HCl/Atropine (Diphenoxylate/Atrop 2.5/0.025 Tablet) 1 tab PO DAILY PRN PRN Reason: Diarrhea Hydroxyzine HCl (Hydroxyzine Hcl 25 Mg Tablet) 25 mg PO TID PRN PRN Reason: Itching Sodium Chloride (Ns) 1,000 mls @ 100 mls/hr IVCONT .Q10H [facility] Last Admin: 03/18/25 12:42 Dose: 100 mls/hr Documented By: ADA Cefepime HCl (Maxipime) 2 gm in 50 mls @ 100 mls/hr IV Q8H [facility] Last Infusion: 03/18/25 08:41 Dose: Infused Documented By: ADA Vancomycin HCl 1,500 mg/ (Sodium Chloride) 500 mls @ 333.333 mls/hr IV Q8H [facility] Last Infusion: 03/18/25 11:21 Dose: Infused Documented By: ADA Lamotrigine (Lamotrigine 100 Mg Tablet) 250 mg PO DAILY [facility] Last Admin: 03/18/25 07:35 Dose: 250 mg Documented By: ADA Magnesium Hydroxide (Milk Of Magnesia 30 Ml Oral.Susp) 30 ml PO DAILY PRN PRN Reason: Constipation Magnesium Oxide (Magnesium Oxide 400 Mg Tablet) 400 mg PO DAILY [facility] Last Admin: 03/18/25 07:34 Dose: 400 mg Documented By: ADA Melatonin (Melatonin 3 Mg Tablet) 6 mg PO BEDTIME PRN PRN Reason: Insomnia Methylphenidate HCl (Methylphenidate Hcl 10 Mg Tablet) 10 mg PO DAILY [facility] Last Admin: 03/18/25 07:35 Dose: 10 mg Documented By: ADA Metoprolol Succinate (Metoprolol Succinate Er 50 Mg Tab.Er.24h) 50 mg PO DAILY [facility]; Protocol Last Admin: 03/18/25 07:35 Dose: 50 mg Documented By: ADA Morphine Sulfate (Morphine Sulfate 4 Mg/Ml Cartridge) 4 mg IVPUSH Q3H PRN; Protocol PRN Reason: Pain, Moderate(Pain Scale 4-6) Last Admin: 03/18/25 12:48 Dose: 4 mg Documented By: ADA Omeprazole (Omeprazole 20 Mg Capsule.Dr) 20 mg PO BEDTIME [facility] Last Admin: 03/17/25 20:38 Dose: 20 mg Documented By: BUSSIEL Ondansetron HCl (Ondansetron Hcl 4 Mg/2 Ml Vial) 4 mg IVPUSH Q8H PRN PRN Reason: Nausea and Vomiting Pharmacy Consult (Consult Rx Vancomycin Dosing) 1 each MISCELLANE DAILY PRN PRN Reason: Consult order Polyethylene Glycol (Polyethylene Glycol 3350 17 Gm Powd.Pack) 17 gm PO DAILY PRN PRN Reason: Constipation Potassium Chloride (Potassium Chloride Er 10 Meq Tablet.Er) 20 meq PO DAILY [facility] Last Admin: 03/18/25 07:36 Dose: 20 meq Documented By: ADA Risperidone (Risperidone 1 Mg Tablet) 1 mg PO BEDTIME RACHEL Last Admin: 03/17/25 20:39 Dose: 1 mg Documented By: HEATHER Senna (Sennosides 8.6 Mg Tablet) 17.2 mg PO BEDTIME [facility] Last Admin: 03/17/25 20:39 Dose: 17.2 mg Documented By: HEATHER Simethicone (Simethicone 80 Mg Tab.Chew) 80 mg PO BID PRN PRN Reason: Abdominal bloating Sodium Chloride (0.9 % Sodium Chloride Flush 3 Ml Syringe) 3 ml IVFLUSH QSHIFT [facility] Last Admin: 03/18/25 07:37 Dose: 3 ml Documented By: ADA Labs 03/18/25 06:13 03/18/25 06:13 Labs: Laboratory Results - last 24 hr 03/17/25 03/18/25 15:51 06:13 MCV 83.2 MCH 28.7 MCHC 34.5 RDW 14.8 Plt Count 227 MPV 8.6 L Immature Gran % (Auto) Cancelled Neut % (Auto) Cancelled Lymph % (Auto) Cancelled [place] % (Auto) Cancelled Eos % (Auto) Cancelled Baso % (Auto) Cancelled Lymph # (Auto) Cancelled [place] # (Auto) Cancelled Eos # (Auto) Cancelled Baso # (Auto) Cancelled Abs Immat Gran (auto) Cancelled Absolute Neuts (auto) Cancelled Absolute Nucleated RBC 0.000 Nucleated RBC % (auto) 0.0 Neutrophils % (Manual) 17 L Band Neutrophils % 16 H Lymphocytes % (Manual) 27 Atypical Lymphs % (Man) 2 Monocytes % (Manual) 33 H Eosinophils % (Manual) 2 Metamyelocytes % 3 Abs Neuts (Manual) 1.0 L Lymphocytes # (Manual) 0.8 L Atyp Lymphs # (Manual) 0.1 Monocytes # (Manual) 1.0 Eosinophils # (Manual) 0.1 Metamyelocytes # 0.1 Toxic Granulation PRESENT Toxic Vacuolation PRESENT Dohle Bodies PRESENT Platelet Estimate NORMAL Large Platelets PRESENT Plt Morphology Comment NOTED RBC Morphology NOTED Polychromasia 1+ (0-2) Basophilic Stippling 1+ (0-2) Macrocytosis 1+ (5-14) Ovalocytes 1+ (5-14) [place] Cells 3+ (>5) Acanthocytes (Spur) 1+ (0-2) Anion Gap 16 Estim Creat Clear Calc 161.0 Estimated GFR > 60 Fasting Glucose 98 Calcium 8.4 Total Bilirubin 1.2 H AST 20 ALT 11 Alkaline Phosphatase 65 Total Protein 5.3 L Albumin 3.1 L Random Vancomycin 6.3 L Microbiology Microbiology Results: Microbiology 03/16/25 15:58 Blood Culture - Preliminary Blood - Venous No growth after 24 hours. 03/16/25 15:58 Blood Culture - Preliminary Blood - Venous No growth after 24 hours. 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 Patient diagnosed with colitis and pneumonia and is being admitted with neutropenic precautions. 1.Colitis -Vanco/Cefipime(3.) -GI consult appreciated -NPO/IVFs -Dilaudid for pain management 2. Neutropenia -improved -CBC with differential daily 3.Left lower lobe opacity -vanco/cefepime() -Duo nebs p.r.n 4. Metastatic rectosigmoid mass -consult Oncology in am 5.Hx PE -Eliquis DVT prophylaixs: ELiquis MED REC completed DNR DNI Quality Stroke Does the patient have a stroke diagnosis?: No Reason for No Anti-thrombotic by Day Two: N/A - Med Ordered VTE Prior VTE?: No VTE Risk Level:: Medical - moderate - high VTE Device Contraindication: N/A - Device Ordered VTE Drug Contraindication: N/A - Med Ordered
[2025-03-18 15:36] VITALS: BP 131/87; PULSE 110; RESP 16; TEMP 36.3; O2SAT 90
[2025-03-18 16:01] VITALS: O2SAT 92
--- NOTE | 2025-03-18 16:06 | PC.NURSE ---
HR elevated 110,Dr. Traylor aware
--- NOTE | 2025-03-18 17:05 | PC.NURSE ---
patient and have a preference to see Dr. dashawn Chavez notified
[2025-03-18 19:36] VITALS: BP 134/93; PULSE 90; RESP 16; TEMP 36.4; O2SAT 93
[2025-03-18 20:25] VITALS: RESP 16
[2025-03-19 01:08] VITALS: RESP 17
[2025-03-19 03:17] VITALS: BP 144/87; PULSE 99; RESP 18; TEMP 36.3; O2SAT 94
[2025-03-19 05:30] VITALS: RESP 19
[2025-03-19 05:38] VITALS: BMI 27.1
[2025-03-19 06:53] LABS: Hematocrit 40.6 % (42.0-52.0); Hemoglobin 13.9 g/dl (14.0-18.0); Mean Corpuscular HGB Conc 34.2 g/dl (31.0-36.0); Mean Corpuscular Hemoglobin 28.7 pg (27.0-33.0); Mean Corpuscular Volume 83.7 fL (80.0-98.0); NRBC Abs Auto 0.060 X10*3/uL (0.0-0.012); NRBC Pct Auto 0.9 /100WBC (0.0-0.2); Platelet Count 264 X10*3/uL (160-400); Red Blood Count 4.85 X10*6/uL (4.60-5.80); White Blood Count 6.9 X10*3/uL (4.8-10.8)
[2025-03-19 06:55] VITALS: BP 130/84; PULSE 107; RESP 16; TEMP 36.6; O2SAT 94
[2025-03-19 07:17] LABS: Alanine Aminotransferase 10 U/L (0-40); Albumin Level 3.2 g/dL (3.5-5.0); Alkaline Phosphatase 69 U/L (39-117); Anion Gap 21 (12-20); Aspartate Amino Transferase 31 U/L (5-37); Blood Urea Nitrogen 18 mg/dL (9-16); Calcium 8.5 mg/dL (8.4-10.2); Carbon Dioxide 17 mmol/L (22-29); Chloride 99 mmol/L (96-108); Creatinine Clr Calc Pharmacy 167.0; Estimated Glomerular Filt Rate > 60; Potassium 2.9 mmol/L (3.3-5.1); Sodium 134 mmol/L (135-145); Total Protein 5.7 g/dL (6.5-8.0)
[2025-03-19 07:52] LABS: Atypical Lymph Absolute Manual 0.1 x10*3/uL; Atypical Lymphs Percent Manual 2 % (0-6); Band Neutrophils Percent 22 % (3-5); Eosinophils Absolute Manual 0.1 X10*3/uL (0.0-0.4); Eosinophils Percent Manual 2 % (0-4); Lymphocytes Absolute Manual 1.2 X10*3/uL (1.2-4.9); Lymphocytes Percent Manual 17 % (20-40); Monocytes Absolute Manual 1.4 X10*3/uL (0.1-1.2); Monocytes Percent Manual 21 % (2-11); Myelocytes Absolute 0.1 X10*/uL; Myelocytes Percent 2 %; Neutrophils Absolute Manual 3.8 X10*3/uL (2.0-8.3); Neutrophils Percent Manual 33 % (45-73); Promyelocytes Absolute 0.1 X10*3/uL; Promyelocytes Percent 1 %
[2025-03-19 07:54] LABS: Acanthocytes 2+ (3-5) /OIF; Burr Cells 3+ (>5) /OIF; Dohle Bodies PRESENT; Large Platelet PRESENT; Ovalocytes 1+ (5-14) /OIF; Polychromasia 1+ (0-2) /OIF; RBC Morphology NOTED; Smudge Cells PRESENT; Toxic Granulation PRESENT; Toxic Vacuolation PRESENT
[2025-03-19] MEDS: cefEPime HCl/D5W 2 GM/50 ML PIGGYBACK IV ×3 (08:14→23:46)
[2025-03-19] MEDS: Metoprolol Succinate ER 50 MG TAB.ER.24H PO (08:19)
[2025-03-19] MEDS: Potassium Chloride ER 10 MEQ TABLET.ER 20 MEQ PO (08:19)
[2025-03-19] MEDS: 0.9 % Sodium Chloride Flush 3 ML SYRINGE IVFLUSH ×3 (08:22→19:58)
[2025-03-19 10:48] VITALS: BMI 27.1
[2025-03-19] MEDS: Potassium Chloride/H20 10 MEQ/100 ML PIGGYBACK 100 MEQ IV ×2 (10:51→11:54)
--- NOTE | 2025-03-19 10:56 | MHC.CLN ---
NUTRITION CURRENTLY NPO. NEUTROPENIC PRECAUTIONS. PATIENT WITH STAGE 4 RECTOSIGMOID CANCER WITH METS TO KIDNEY, LIVER, LUNGS. SKIN WITH REDNESS TO BILATERAL BUTOCKS. FOLLOW FOR DIET ADVANCEMENT AND PO INTAKE. SEE CLINICAL NUTRITION ASSESSMENT 03/19/25.
--- NOTE | 2025-03-19 12:16 | MHC.CM.PN ---
PER MD ROUNDS, PT NOT MEDICALLY CLEARED, PLAN FOR SURGERY CONSULT DCP: HOME VIA PRIVATE TRANSPORT
--- NOTE | 2025-03-19 14:21 | P.CONAN_ITS ---
Documented by User: Terri Leo NP 03/20/25 09:37 HPI - Anesthesia Eval Consult details Narrative: 60 yr old male for colonoscopy, stent QUYEN Pt is SOB, no CP, but unable to ambulate without assistance, very weak Hypokalemia: K+ 2.9 03/19/25, given both oral, IV potassium. repeat pending Metastatic adenocarcinoma consistent with rectal primary: on palliative chemotherapy, followed by [facility] oncology H/O PE: on eliquis, dose given 03/19/25 PMFSH Active Problems Active Problems: All Active Problems Diarrhea (Acute) Pneumonia (Acute) Colitis (Acute) Neutropenia with fever (Acute) Colon cancer metastasized to liver (Chronic) Marijuana smoker (Acute) Chronic back pain (Acute) Anxiety (Acute) History of obesity (Acute) Diabetes mellitus (Acute) Hypertension (Acute) Neoplasm of rectosigmoid junction (Acute) Past Medical History Medical History (Updated 03/19/25 @ 15:49 by Shay Haro MD) Abdominal distention Port-A-Cath in place H/O sigmoidoscopy Elective surgery Marijuana smoker Chronic back pain Anxiety History of obesity Diabetes mellitus Hypertension Neoplasm of rectosigmoid junction Functional capacity: wheelchair bound Family History Family History Other Family history unknown Family history of problems with anesthesia: No Surgical History Surgical History History of flexible sigmoidoscopy (~12/14/23) H/O oral surgery No pertinent past surgical history History of Problems with Anesthesia: No Social History Social History Household Members: Spouse Housing: House Do you presently have visiting nurse or other home services: No Patient Tobacco Use Status: Never used Tobacco Substance Use Type: Marijuana Advance Directives Date on File: 03/13/24 service: No Current occupational status: disabled Meds Allergies Allergy/AdvReac Type Severity Reaction Status Date / Time No Known Allergies (No Known Allergy Verified 03/16/25 14:41 Allergies*) Active Medications: Current Medications Acetaminophen (Acetaminophen 325 Mg Tablet) 650 mg PO Q6H PRN PRN Reason: Pain, Mild 1-3,fever,headache Albuterol/Ipratropium (Albuterol/Iprat 2.5/0.5mg 3 Ml Ampul.Neb) 3 ml INHALE Q4H PRN PRN Reason: Shortness of Breath/Wheezing Amlodipine Besylate (Amlodipine Besylate 5 Mg Tablet) 5 mg PO BEDTIME [facility]; Protocol Last Admin: 03/18/25 20:26 Dose: 5 mg Apixaban (Apixaban 5 Mg Tablet) 5 mg PO BID@0500,1700 [facility] Last Admin: 03/19/25 05:30 Dose: 5 mg Calcium Carbonate (Calcium Carbonate 750 Mg Tab.Chew) 750 mg PO Q4H PRN PRN Reason: Heartburn Clonazepam (Clonazepam 1 Mg Tablet) 1 mg PO BEDTIME PRN PRN Reason: Anxiety Dexamethasone (Dexamethasone 4 Mg Tablet) 4 mg PO WETH RACHEL Diazepam (Diazepam 10 Mg/2 Ml Cartridge) 10 mg IVPUSH Q6H PRN PRN Reason: Anxiety Diphenoxylate HCl/Atropine (Diphenoxylate/Atrop 2.5/0.025 Tablet) 1 tab PO DAILY PRN PRN Reason: Diarrhea Hydroxyzine HCl (Hydroxyzine Hcl 25 Mg Tablet) 25 mg PO TID PRN PRN Reason: Itching Cefepime HCl (Maxipime) 2 gm in 50 mls @ 100 mls/hr IV Q8H [facility] Last Infusion: 03/19/25 09:11 Dose: Infused Vancomycin HCl 1,250 mg/ (Sodium Chloride) 250 mls @ 166.667 mls/hr IV Q8H [facility] Last Infusion: 03/19/25 10:46 Dose: Infused Lamotrigine (Lamotrigine 100 Mg Tablet) 250 mg PO DAILY [facility] Last Admin: 03/19/25 08:19 Dose: 250 mg Magnesium Hydroxide (Milk Of Magnesia 30 Ml Oral.Susp) 30 ml PO DAILY PRN PRN Reason: Constipation Magnesium Oxide (Magnesium Oxide 400 Mg Tablet) 400 mg PO DAILY [facility] Last Admin: 03/19/25 08:19 Dose: 400 mg Melatonin (Melatonin 3 Mg Tablet) 6 mg PO BEDTIME PRN PRN Reason: Insomnia Methylphenidate HCl (Methylphenidate Hcl 10 Mg Tablet) 10 mg PO DAILY [facility] Last Admin: 03/19/25 08:20 Dose: 10 mg Metoprolol Succinate (Metoprolol Succinate Er 50 Mg Tab.Er.24h) 50 mg PO DAILY [facility]; Protocol Last Admin: 03/19/25 08:19 Dose: 50 mg Morphine Sulfate (Morphine Sulfate 4 Mg/Ml Cartridge) 4 mg IVPUSH Q3H PRN; Protocol PRN Reason: Pain, Moderate(Pain Scale 4-6) Last Admin: 03/19/25 10:31 Dose: 4 mg Omeprazole (Omeprazole 20 Mg Capsule.Dr) 20 mg PO BEDTIME RACHEL Last Admin: 03/18/25 20:26 Dose: 20 mg Ondansetron HCl (Ondansetron Hcl 4 Mg/2 Ml Vial) 4 mg IVPUSH Q8H PRN PRN Reason: Nausea and Vomiting Pharmacy Consult (Consult Rx Vancomycin Dosing) 1 each MISCELLANE DAILY PRN PRN Reason: Consult order Polyethylene Glycol (Polyethylene Glycol 3350 17 Gm Powd.Pack) 17 gm PO DAILY PRN PRN Reason: Constipation Potassium Chloride (Potassium Chloride Er 10 Meq Tablet.Er) 20 meq PO DAILY [facility] Last Admin: 03/19/25 08:19 Dose: 20 meq Risperidone (Risperidone 1 Mg Tablet) 1 mg PO BEDTIME RACHEL Last Admin: 03/18/25 20:26 Dose: 1 mg Senna (Sennosides 8.6 Mg Tablet) 17.2 mg PO BEDTIME RACHEL Last Admin: 03/18/25 20:26 Dose: 17.2 mg Simethicone (Simethicone 80 Mg Tab.Chew) 80 mg PO BID PRN PRN Reason: Abdominal bloating Sodium Chloride (0.9 % Sodium Chloride Flush 3 Ml Syringe) 3 ml IVFLUSH QSHIFT [facility] Last Admin: 03/19/25 08:22 Dose: 3 ml Home Medications ?Medication ?Instructions ?Recorded ?Confirmed ?Last Taken ?Type amlodipine 5 mg tablet 5 mg PO BEDTIME 12/09/2303/15/25 History clonazepam 1 mg tablet 1 mg PO BEDTIME PRN Anxiety 12/09/23 03/16/25 12/28/23 History lamotrigine 200 mg tablet 300 mg PO DAILY 12/09/2303/16/25 History methylphenidate HCl 10 mg tablet 10 mg PO DAILY 03/16/25 03/16/25 History methylphenidate HCl 54 mg 54 mg PO DAILY 12/09/2302/2403/16/25 History tablet,extended release 24 hr metoprolol succinate 50 mg 50 mg PO DAILY 12/09/2303/16/25 History tablet,extended release 24 hr risperidone 1 mg tablet (Risperdal) 1 mg PO BEDTIME 03/16/25 03/15/25 History apixaban 5 mg tablet (Eliquis) 5 mg PO BID@0500,1700 0 03/16/25 03/16/25 03/16/25 History barium sulfate 2 % (w/v) oral 450 ml PO BID PRN cat sc an 03/16/25 03/16/25 Unknown History suspension (Readi-Cat 2) dexamethasone 4 mg tablet 4 mg PO WETH with chemothera py 03/16/25 03/16/25 03/15/25 History omeprazole 20 mg capsule,delayed 20 mg PO BEDTIME 02/2403/16/25 03/15/25 History release ondansetron 8 mg disintegrating 8 mg PO Q8H PRN Nausea And Vomiting 03/16/25 03/16/25 Unknown History tablet Exam Height,Weight and Vital Signs: Height 6 ft 2 in Weight 95.6 kg Last Vital Signs Temp 98 F 03/19/25 06:55 Pulse 107 H 03/19/25 06:55 Resp 16 03/19/25 06:55 BP 130/84 03/19/25 06:55 Pulse Ox 94 03/19/25 06:55 O2 Del Method Room Air 03/19/25 06:55 Pertinent Lab Results Pertinent Lab Results: Laboratory Tests 03/16/25 03/16/25 03/17/25 15:34 15:58 05:52 WBC 1.1 L 1.0 L RBC 4.67 4.82 Hgb 13.5 L 14.1 Hct 39.9 L 40.0 L MCV 85.4 83.0 MCH 28.9 29.3 MCHC 33.8 35.3 RDW 14.6 14.7 Plt Count 181 187 MPV 8.8 L 8.5 L Immature Gran % (Auto) 1.9 H Cancelled Neut % (Auto) 19.4 L Cancelled Lymph % (Auto) 42.6 H Cancelled [place] % (Auto) 34.3 H Cancelled Eos % (Auto) 0.9 Cancelled Baso % (Auto) 0.9 Cancelled Lymph # (Auto) 0.5 L Cancelled [place] # (Auto) 0.4 Cancelled Eos # (Auto) 0.0 Cancelled Baso # (Auto) 0.0 Cancelled Abs Immat Gran (auto) 0.02 Cancelled Absolute Neuts (auto) 0.2 L Cancelled Absolute Nucleated RBC 0.020 H 0.050 H Nucleated RBC % (auto) 1.9 H 4.9 H Neutrophils % (Manual) 3 L Band Neutrophils % 12 H Lymphocytes % (Manual) 36 Atypical Lymphs % (Man) 3 Monocytes % (Manual) 44 H Eosinophils % (Manual) Metamyelocytes % 2 Myelocytes % Promyelocytes % Abs Neuts (Manual) 0.2 L Lymphocytes # (Manual) 0.4 L Atyp Lymphs # (Manual) Monocytes # (Manual) 0.4 Eosinophils # (Manual) Metamyelocytes # Myelocytes # Promyelocytes # Nucleated RBCs 3 H Smudge Cells Toxic Granulation PRESENT Toxic Vacuolation Dohle Bodies PRESENT Platelet Estimate NORMAL Large Platelets PRESENT Plt Morphology Comment NOTED RBC Morphology NOTED Polychromasia 1+ (0-2) Basophilic Stippling Macrocytosis Ovalocytes [place] Cells Acanthocytes (Spur) Smear Path Review SEE NOTE Sodium 134 L 135 Potassium 3.1 L 3.6 Chloride 100 100 Carbon Dioxide 22 24 Anion Gap 15 15 BUN 9 11 Creatinine 0.50 0.64 Estim Creat Clear Calc 180.3 140.9 Estimated GFR > 60 > 60 Random Glucose 128 H 113 Fasting Glucose Lactic Acid 1.2 Calcium 8.3 L 8.4 Magnesium 1.7 Total Bilirubin 1.2 H 2.1 H AST 25 32 ALT 14 16 Alkaline Phosphatase 71 74 Total Protein 5.6 L 5.3 L Albumin 3.6 3.4 L Random Vancomycin 03/17/25 03/18/25 03/18/25 15:51 06:13 16:06 WBC 2.9 L RBC 4.63 Hgb 13.3 L Hct 38.5 L MCV 83.2 MCH 28.7 MCHC 34.5 RDW 14.8 Plt Count 227 MPV 8.6 L Immature Gran % (Auto) Cancelled Neut % (Auto) Cancelled Lymph % (Auto) Cancelled [place] % (Auto) Cancelled Eos % (Auto) Cancelled Baso % (Auto) Cancelled Lymph # (Auto) Cancelled [place] # (Auto) Cancelled Eos # (Auto) Cancelled Baso # (Auto) Cancelled Abs Immat Gran (auto) Cancelled Absolute Neuts (auto) Cancelled Absolute Nucleated RBC 0.000 Nucleated RBC % (auto) 0.0 Neutrophils % (Manual) 17 L Band Neutrophils % 16 H Lymphocytes % (Manual) 27 Atypical Lymphs % (Man) 2 Monocytes % (Manual) 33 H Eosinophils % (Manual) 2 Metamyelocytes % 3 Myelocytes % Promyelocytes % Abs Neuts (Manual) 1.0 L Lymphocytes # (Manual) 0.8 L Atyp Lymphs # (Manual) 0.1 Monocytes # (Manual) 1.0 Eosinophils # (Manual) 0.1 Metamyelocytes # 0.1 Myelocytes # Promyelocytes # Nucleated RBCs Smudge Cells Toxic Granulation PRESENT Toxic Vacuolation PRESENT Dohle Bodies PRESENT Platelet Estimate NORMAL Large Platelets PRESENT Plt Morphology Comment NOTED RBC Morphology NOTED Polychromasia 1+ (0-2) Basophilic Stippling 1+ (0-2) Macrocytosis 1+ (5-14) Ovalocytes 1+ (5-14) [place] Cells 3+ (>5) Acanthocytes (Spur) 1+ (0-2) Smear Path Review Sodium 132 L Potassium 3.1 L Chloride 98 Carbon Dioxide 21 L Anion Gap 16 BUN 16 Creatinine 0.56 Estim Creat Clear Calc 161.0 Estimated GFR > 60 Random Glucose Fasting Glucose 98 Lactic Acid Calcium 8.4 Magnesium Total Bilirubin 1.2 H AST 20 ALT 11 Alkaline Phosphatase 65 Total Protein 5.3 L Albumin 3.1 L Random Vancomycin 6.3 L 16.3 03/19/25 05:38 WBC 6.9 RBC 4.85 Hgb 13.9 L Hct 40.6 L MCV 83.7 MCH 28.7 MCHC 34.2 RDW 14.6 Plt Count 264 MPV 9.0 L Immature Gran % (Auto) Cancelled Neut % (Auto) Cancelled Lymph % (Auto) Cancelled [place] % (Auto) Cancelled Eos % (Auto) Cancelled Baso % (Auto) Cancelled Lymph # (Auto) Cancelled [place] # (Auto) Cancelled Eos # (Auto) Cancelled Baso # (Auto) Cancelled Abs Immat Gran (auto) Cancelled Absolute Neuts (auto) Cancelled Absolute Nucleated RBC 0.060 H Nucleated RBC % (auto) 0.9 H Neutrophils % (Manual) 33 L Band Neutrophils % 22 H Lymphocytes % (Manual) 17 L Atypical Lymphs % (Man) 2 Monocytes % (Manual) 21 H Eosinophils % (Manual) 2 Metamyelocytes % Myelocytes % 2 Promyelocytes % 1 Abs Neuts (Manual) 3.8 Lymphocytes # (Manual) 1.2 Atyp Lymphs # (Manual) 0.1 Monocytes # (Manual) 1.4 H Eosinophils # (Manual) 0.1 Metamyelocytes # Myelocytes # 0.1 Promyelocytes # 0.1 Nucleated RBCs Smudge Cells PRESENT Toxic Granulation PRESENT Toxic Vacuolation PRESENT Dohle Bodies PRESENT Platelet Estimate NORMAL Large Platelets PRESENT Plt Morphology Comment NOTED RBC Morphology NOTED Polychromasia 1+ (0-2) Basophilic Stippling Macrocytosis Ovalocytes 1+ (5-14) [place] Cells 3+ (>5) Acanthocytes (Spur) 2+ (3-5) Smear Path Review Sodium 134 L Potassium 2.9 L* Chloride 99 Carbon Dioxide 17 L Anion Gap 21 H BUN 18 H Creatinine 0.54 Estim Creat Clear Calc 167.0 Estimated GFR > 60 Random Glucose Fasting Glucose 131 H Lactic Acid Calcium 8.5 Magnesium Total Bilirubin 0.9 AST 31 ALT 10 Alkaline Phosphatase 69 Total Protein 5.7 L Albumin 3.2 L Random Vancomycin Narrative Narrative: EKG 03/20/25 Vent. Rate : 101 BPM Atrial Rate : 101 BPM P-R Int : 156 ms QRS Dur : 90 ms QT Int : 350 ms P-R-T Axes : 6 -27 46 degrees QTcB Int : 453 ms Sinus tachycardia Inferior infarct (cited on or before 28-Mar-2024) Anterolateral infarct (cited on or before 28-Mar-2024) Abnormal ECG When compared with ECG of 28-Mar-2024 12:55, Vent. rate has increased by 33 bpm Airway TM Dist: >3cm Neck ROM: Full Heart: regular, tachycardic Lungs: limited exam, diminished at bases b/l Assessment and Plan Final Anesthetic Review Family History of Problems with Anesthesia: No History of Problems with Anesthesia: No Documented by User: Jean Marie Tobias MD 03/20/25 14:14 [facility] [place] Past Medical History Medical History (Updated 03/19/25 @ 15:49 by Shay Haro MD) Abdominal distention Port-A-Cath in place H/O sigmoidoscopy Elective surgery Marijuana smoker Chronic back pain Anxiety History of obesity Diabetes mellitus Hypertension Neoplasm of rectosigmoid junction Family History Family History Other Family history unknown Surgical History Surgical History History of flexible sigmoidoscopy (~12/14/23) H/O oral surgery No pertinent past surgical history Social History Social History Household Members: Spouse Housing: House Do you presently have visiting nurse or other home services: No Patient Tobacco Use Status: Never used Tobacco Substance Use Type: Marijuana Advance Directives Date on File: 03/13/24 service: No Current occupational status: disabled Meds Allergies Allergy/AdvReac Type Severity Reaction Status Date / Time No Known Allergies (No Known Allergy Verified 03/16/25 14:41 Allergies*) Home Medications ?Medication ?Instructions ?Recorded ?Confirmed ?Last Taken ?Type amlodipine 5 mg tablet 5 mg PO BEDTIME 12/09/2303/15/25 History clonazepam 1 mg tablet 1 mg PO BEDTIME PRN Anxiety 12/09/23 03/16/25 12/28/23 History lamotrigine 200 mg tablet 300 mg PO DAILY 12/09/2303/16/25 History methylphenidate HCl 10 mg tablet 10 mg PO DAILY 03/16/25 03/16/25 History methylphenidate HCl 54 mg 54 mg PO DAILY 12/09/2302/2403/16/25 History tablet,extended release 24 hr metoprolol succinate 50 mg 50 mg PO DAILY 12/09/2303/16/25 History tablet,extended release 24 hr risperidone 1 mg tablet (Risperdal) 1 mg PO BEDTIME 03/16/25 03/15/25 History apixaban 5 mg tablet (Eliquis) 5 mg PO BID@0500,1700 0 03/16/25 03/16/25 03/16/25 History barium sulfate 2 % (w/v) oral 450 ml PO BID PRN cat sc an 03/16/25 03/16/25 Unknown History suspension (Readi-Cat 2) dexamethasone 4 mg tablet 4 mg PO WETH with chemothera py 03/16/25 03/16/25 03/15/25 History omeprazole 20 mg capsule,delayed 20 mg PO BEDTIME 02/2403/16/25 03/15/25 History release ondansetron 8 mg disintegrating 8 mg PO Q8H PRN Nausea And Vomiting 03/16/25 03/16/25 Unknown History tablet Exam Exam Date and Time: 03/20/25 Airway Mallampati Class: II Loose/Missing/Broken Teeth: No Assessment and Plan Final Anesthetic Review NPO: Yes ASA Class: IV Final Preanesthetic Review: No Changes in Pt Med Stat, Meds/Allgs Chart Reviewed, Consent Obtained/Reviewed and Anes Risks/Benef Reviewed Patient Risk: High Procedure Risk: High Anesthetic Plan Anesthetic Plan: GA and MAC: Disposition: Standard PACU
[2025-03-19 15:05] LABS: CDiff Gene PCR NEGATIVE (Negative)
--- NOTE | 2025-03-19 15:43 | HO.PM.IMPN ---
Subjective Subjective Date of Service: 03/19/25 Review of Systems Follow up colon mass still with diarrhea pain controlled Physical Exam Exam: Exam: Appearing in no acute distress lung sounds are clear to auscultation heart regular rate rhythm, clear S1, S2 positive bowel sounds, abdomen is soft, nontender neuro patient is alert x3, no focal deficits Vital Signs: Vital Signs: Last Vital Signs Temp 98 F 03/19/25 06:55 Pulse 107 H 03/19/25 06:55 Resp 16 03/19/25 06:55 BP 130/84 03/19/25 06:55 Pulse Ox 94 03/19/25 06:55 O2 Del Method Room Air 03/19/25 06:55 BMI result Body Mass Index 27.1 Objective Data Active Medications Acetaminophen (Acetaminophen 325 Mg Tablet) 650 mg PO Q6H PRN PRN Reason: Pain, Mild 1-3,fever,headache Albuterol/Ipratropium (Albuterol/Iprat 2.5/0.5mg 3 Ml Ampul.Neb) 3 ml INHALE Q4H PRN PRN Reason: Shortness of Breath/Wheezing Amlodipine Besylate (Amlodipine Besylate 5 Mg Tablet) 5 mg PO BEDTIME RACHEL; Protocol Last Admin: 03/18/25 20:26 Dose: 5 mg Documented By: KILO Apixaban (Apixaban 5 Mg Tablet) 5 mg PO BID@0500,1700 [facility] Last Admin: 03/19/25 05:30 Dose: 5 mg Documented By: KILO Calcium Carbonate (Calcium Carbonate 750 Mg Tab.Chew) 750 mg PO Q4H PRN PRN Reason: Heartburn Clonazepam (Clonazepam 1 Mg Tablet) 1 mg PO BEDTIME PRN PRN Reason: Anxiety Dexamethasone (Dexamethasone 4 Mg Tablet) 4 mg PO WETH RACHEL Diazepam (Diazepam 10 Mg/2 Ml Cartridge) 10 mg IVPUSH Q6H PRN PRN Reason: Anxiety Diphenoxylate HCl/Atropine (Diphenoxylate/Atrop 2.5/0.025 Tablet) 1 tab PO DAILY PRN PRN Reason: Diarrhea Hydroxyzine HCl (Hydroxyzine Hcl 25 Mg Tablet) 25 mg PO TID PRN PRN Reason: Itching Cefepime HCl (Maxipime) 2 gm in 50 mls @ 100 mls/hr IV Q8H [facility] Last Infusion: 03/19/25 09:11 Dose: Infused Documented By: YARON Vancomycin HCl 1,250 mg/ (Sodium Chloride) 250 mls @ 166.667 mls/hr IV Q8H [facility] Last Infusion: 03/19/25 10:46 Dose: Infused Documented By: YARON Lamotrigine (Lamotrigine 100 Mg Tablet) 250 mg PO DAILY [facility] Last Admin: 03/19/25 08:19 Dose: 250 mg Documented By: YARON Magnesium Hydroxide (Milk Of Magnesia 30 Ml Oral.Susp) 30 ml PO DAILY PRN PRN Reason: Constipation Magnesium Oxide (Magnesium Oxide 400 Mg Tablet) 400 mg PO DAILY [facility] Last Admin: 03/19/25 08:19 Dose: 400 mg Documented By: YARON Melatonin (Melatonin 3 Mg Tablet) 6 mg PO BEDTIME PRN PRN Reason: Insomnia Methylphenidate HCl (Methylphenidate Hcl 10 Mg Tablet) 10 mg PO DAILY [facility] Last Admin: 03/19/25 08:20 Dose: 10 mg Documented By: YARON Metoprolol Succinate (Metoprolol Succinate Er 50 Mg Tab.Er.24h) 50 mg PO DAILY [facility]; Protocol Last Admin: 03/19/25 08:19 Dose: 50 mg Documented By: YARON Morphine Sulfate (Morphine Sulfate 4 Mg/Ml Cartridge) 4 mg IVPUSH Q3H PRN; Protocol PRN Reason: Pain, Moderate(Pain Scale 4-6) Last Admin: 03/19/25 10:31 Dose: 4 mg Documented By: YARON Omeprazole (Omeprazole 20 Mg Capsule.Dr) 20 mg PO BEDTIME [facility] Last Admin: 03/18/25 20:26 Dose: 20 mg Documented By: KILO Ondansetron HCl (Ondansetron Hcl 4 Mg/2 Ml Vial) 4 mg IVPUSH Q8H PRN PRN Reason: Nausea and Vomiting Pharmacy Consult (Consult Rx Vancomycin Dosing) 1 each MISCELLANE DAILY PRN PRN Reason: Consult order Polyethylene Glycol (Polyethylene Glycol 3350 17 Gm Powd.Pack) 17 gm PO DAILY PRN PRN Reason: Constipation Potassium Chloride (Potassium Chloride Er 10 Meq Tablet.Er) 20 meq PO DAILY [facility] Last Admin: 03/19/25 08:19 Dose: 20 meq Documented By: YARON Risperidone (Risperidone 1 Mg Tablet) 1 mg PO BEDTIME [facility] Last Admin: 03/18/25 20:26 Dose: 1 mg Documented By: KILO Senna (Sennosides 8.6 Mg Tablet) 17.2 mg PO BEDTIME [facility] Last Admin: 03/18/25 20:26 Dose: 17.2 mg Documented By: KILO Simethicone (Simethicone 80 Mg Tab.Chew) 80 mg PO BID PRN PRN Reason: Abdominal bloating Sodium Chloride (0.9 % Sodium Chloride Flush 3 Ml Syringe) 3 ml IVFLUSH QSHIFT [facility] Last Admin: 03/19/25 08:22 Dose: 3 ml Documented By: YARON Labs 03/19/25 05:38 03/19/25 05:38 Labs: Laboratory Results - last 24 hr 03/17/25 03/18/25 03/19/25 05:52 16:06 05:38 MCV 83.7 MCH 28.7 MCHC 34.2 RDW 14.6 Plt Count 264 MPV 9.0 L Immature Gran % (Auto) Cancelled Neut % (Auto) Cancelled Lymph % (Auto) Cancelled [place] % (Auto) Cancelled Eos % (Auto) Cancelled Baso % (Auto) Cancelled Lymph # (Auto) Cancelled [place] # (Auto) Cancelled Eos # (Auto) Cancelled Baso # (Auto) Cancelled Abs Immat Gran (auto) Cancelled Absolute Neuts (auto) Cancelled Absolute Nucleated RBC 0.060 H Nucleated RBC % (auto) 0.9 H Neutrophils % (Manual) 33 L Band Neutrophils % 22 H Lymphocytes % (Manual) 17 L Atypical Lymphs % (Man) 2 Monocytes % (Manual) 21 H Eosinophils % (Manual) 2 Myelocytes % 2 Promyelocytes % 1 Abs Neuts (Manual) 3.8 Lymphocytes # (Manual) 1.2 Atyp Lymphs # (Manual) 0.1 Monocytes # (Manual) 1.4 H Eosinophils # (Manual) 0.1 Myelocytes # 0.1 Promyelocytes # 0.1 Smudge Cells PRESENT Toxic Granulation PRESENT Toxic Vacuolation PRESENT Dohle Bodies PRESENT Platelet Estimate NORMAL Large Platelets PRESENT Plt Morphology Comment NOTED RBC Morphology NOTED Polychromasia 1+ (0-2) Ovalocytes 1+ (5-14) [place] Cells 3+ (>5) Acanthocytes (Spur) 2+ (3-5) Smear Path Review SEE NOTE Anion Gap 21 H Estim Creat Clear Calc 167.0 Estimated GFR > 60 Fasting Glucose 131 H Calcium 8.5 Total Bilirubin 0.9 AST 31 ALT 10 Alkaline Phosphatase 69 Total Protein 5.7 L Albumin 3.2 L Random Vancomycin 16.3 C. difficile Tox B Gene 03/19/25 13:55 MCV MCH MCHC RDW Plt Count MPV Immature Gran % (Auto) Neut % (Auto) Lymph % (Auto) [place] % (Auto) Eos % (Auto) Baso % (Auto) Lymph # (Auto) [place] # (Auto) Eos # (Auto) Baso # (Auto) Abs Immat Gran (auto) Absolute Neuts (auto) Absolute Nucleated RBC Nucleated RBC % (auto) Neutrophils % (Manual) Band Neutrophils % Lymphocytes % (Manual) Atypical Lymphs % (Man) Monocytes % (Manual) Eosinophils % (Manual) Myelocytes % Promyelocytes % Abs Neuts (Manual) Lymphocytes # (Manual) Atyp Lymphs # (Manual) Monocytes # (Manual) Eosinophils # (Manual) Myelocytes # Promyelocytes # [place] Cells Toxic Granulation Toxic Vacuolation Dohle Bodies Platelet Estimate Large Platelets Plt Morphology Comment RBC Morphology Polychromasia Ovalocytes [place] Cells Acanthocytes (Spur) Smear Path Review Anion Gap Estim Creat Clear Calc Estimated GFR Fasting Glucose Calcium Total Bilirubin AST ALT Alkaline Phosphatase Total Protein Albumin Random Vancomycin C. difficile Tox B Gene NEGATIVE Microbiology Microbiology Results: Microbiology 03/16/25 15:58 Blood Culture - Preliminary Blood - Venous No growth after 48 hours. 03/16/25 15:58 Blood Culture - Preliminary Blood - Venous No growth after 48 hours. 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 Patient diagnosed with colitis and pneumonia and is being admitted with neutropenic precautions. Colitis still with diarrhea KUB today showed distal colon obstruction progression secondary to rectal mass continue Vanco/Cefipime stool studies and cdiff negative GI consult>Plan for colon stent tomorrow NPO/IVFs Dilaudid for pain management Neutropenia improved CBC with differential daily Left lower lobe opacity continue vanco/cefepime Duo nebs p.r.n Hypertension Continue amlodipine Metastatic rectosigmoid mass consult Oncology in am outpatient chemo Mental health Continue home medications Hx PE Eliquis on hold DVT prophylaixs: ELiquis , hold for surgery DNR DNI Quality Stroke Does the patient have a stroke diagnosis?: No Reason for No Anti-thrombotic by Day Two: N/A - Med Ordered VTE Prior VTE?: No VTE Risk Level:: Medical - moderate - high VTE Device Contraindication: N/A - Device Ordered VTE Drug Contraindication: N/A - Med Ordered
--- NOTE | 2025-03-19 15:45 | P.CONGS_ITS ---
History of Present Illness Consult details Consult date: 03/19/25 Narrative: 60-year-old male old known history of stage IV rectosigmoid cancer, metastatic to the liver, lungs and kidneys and undergoing palliative chemotherapy, admitted on 03/16/2025 because of abdominal pain. He also has been having diarrhea and fatigue, vomiting and chills. He had a CAT scan done admission showing diffuse dilatation of the colon along with suggestion of colitis. In view of this diffuse dilatation of the colon, I have been asked to consult Currently, he he has minimal abdominal pain. He said he is passing flatus and has had multiple watery stools. He is also neutropenic when he was admitted. He has had no fever while he has been in the hospital. Review of Systems 2 Constitutional: Constitutional: Reports chills, Reports poor appetite and Reports weakness Cardiovascular: Cardiovascular: Denies chest pain, Denies chest pain at rest and Reports dyspnea on exertion Respiratory: Respiratory: Denies cough and Reports dyspnea on exertion Gastrointestinal: Gastrointestinal: Reports abdominal pain, Denies hematochezia and Reports diarrhea Genitourinary: Genitourinary: Denies dysuria Neurologic: Reports weakness PMFSH Past Medical History Medical History (Updated 03/19/25 @ 15:49 by Shay Haro MD) Abdominal distention Port-A-Cath in place H/O sigmoidoscopy Elective surgery Marijuana smoker Chronic back pain Anxiety History of obesity Diabetes mellitus Hypertension Neoplasm of rectosigmoid junction Family History Family History Other Family history unknown Surgical History Surgical History History of flexible sigmoidoscopy (~12/14/23) H/O oral surgery No pertinent past surgical history Social History Social History Household Members: Spouse Housing: House Are you a primary care information associate to a significant other at home: No Do you presently have visiting nurse or other home services: No Patient Tobacco Use Status: Never used Tobacco Substance Use Type: Marijuana Advance Directives Date on File: 03/13/24 service: No Current occupational status: disabled Travel History Ebola Risk: Travel/Contact With Anyone From Affected Area/s: No Has Patient Experienced Ebola Symptoms: No Meds Allergies Allergy/AdvReac Type Severity Reaction Status Date / Time No Known Allergies (No Known Allergy Verified 03/16/25 14:41 Allergies*) Active Medications: Current Medications Acetaminophen (Acetaminophen 325 Mg Tablet) 650 mg PO Q6H PRN PRN Reason: Pain, Mild 1-3,fever,headache Albuterol/Ipratropium (Albuterol/Iprat 2.5/0.5mg 3 Ml Ampul.Neb) 3 ml INHALE Q4H PRN PRN Reason: Shortness of Breath/Wheezing Amlodipine Besylate (Amlodipine Besylate 5 Mg Tablet) 5 mg PO BEDTIME [facility]; Protocol Last Admin: 03/18/25 20:26 Dose: 5 mg Apixaban (Apixaban 5 Mg Tablet) 5 mg PO BID@0500,1700 [facility] Last Admin: 03/19/25 05:30 Dose: 5 mg Calcium Carbonate (Calcium Carbonate 750 Mg Tab.Chew) 750 mg PO Q4H PRN PRN Reason: Heartburn Clonazepam (Clonazepam 1 Mg Tablet) 1 mg PO BEDTIME PRN PRN Reason: Anxiety Dexamethasone (Dexamethasone 4 Mg Tablet) 4 mg PO WETH RACHEL Diazepam (Diazepam 10 Mg/2 Ml Cartridge) 10 mg IVPUSH Q6H PRN PRN Reason: Anxiety Diphenoxylate HCl/Atropine (Diphenoxylate/Atrop 2.5/0.025 Tablet) 1 tab PO DAILY PRN PRN Reason: Diarrhea Hydroxyzine HCl (Hydroxyzine Hcl 25 Mg Tablet) 25 mg PO TID PRN PRN Reason: Itching Cefepime HCl (Maxipime) 2 gm in 50 mls @ 100 mls/hr IV Q8H [facility] Last Infusion: 03/19/25 09:11 Dose: Infused Vancomycin HCl 1,250 mg/ (Sodium Chloride) 250 mls @ 166.667 mls/hr IV Q8H [facility] Last Infusion: 03/19/25 10:46 Dose: Infused Lamotrigine (Lamotrigine 100 Mg Tablet) 250 mg PO DAILY [facility] Last Admin: 03/19/25 08:19 Dose: 250 mg Magnesium Hydroxide (Milk Of Magnesia 30 Ml Oral.Susp) 30 ml PO DAILY PRN PRN Reason: Constipation Magnesium Oxide (Magnesium Oxide 400 Mg Tablet) 400 mg PO DAILY [facility] Last Admin: 03/19/25 08:19 Dose: 400 mg Melatonin (Melatonin 3 Mg Tablet) 6 mg PO BEDTIME PRN PRN Reason: Insomnia Methylphenidate HCl (Methylphenidate Hcl 10 Mg Tablet) 10 mg PO DAILY [facility] Last Admin: 03/19/25 08:20 Dose: 10 mg Metoprolol Succinate (Metoprolol Succinate Er 50 Mg Tab.Er.24h) 50 mg PO DAILY [facility]; Protocol Last Admin: 03/19/25 08:19 Dose: 50 mg Morphine Sulfate (Morphine Sulfate 4 Mg/Ml Cartridge) 4 mg IVPUSH Q3H PRN; Protocol PRN Reason: Pain, Moderate(Pain Scale 4-6) Last Admin: 03/19/25 10:31 Dose: 4 mg Omeprazole (Omeprazole 20 Mg Capsule.Dr) 20 mg PO BEDTIME [facility] Last Admin: 03/18/25 20:26 Dose: 20 mg Ondansetron HCl (Ondansetron Hcl 4 Mg/2 Ml Vial) 4 mg IVPUSH Q8H PRN PRN Reason: Nausea and Vomiting Pharmacy Consult (Consult Rx Vancomycin Dosing) 1 each MISCELLANE DAILY PRN PRN Reason: Consult order Polyethylene Glycol (Polyethylene Glycol 3350 17 Gm Powd.Pack) 17 gm PO DAILY PRN PRN Reason: Constipation Potassium Chloride (Potassium Chloride Er 10 Meq Tablet.Er) 20 meq PO DAILY [facility] Last Admin: 03/19/25 08:19 Dose: 20 meq Risperidone (Risperidone 1 Mg Tablet) 1 mg PO BEDTIME [facility] Last Admin: 03/18/25 20:26 Dose: 1 mg Senna (Sennosides 8.6 Mg Tablet) 17.2 mg PO BEDTIME [facility] Last Admin: 03/18/25 20:26 Dose: 17.2 mg Simethicone (Simethicone 80 Mg Tab.Chew) 80 mg PO BID PRN PRN Reason: Abdominal bloating Sodium Chloride (0.9 % Sodium Chloride Flush 3 Ml Syringe) 3 ml IVFLUSH QSHIFT [facility] Last Admin: 03/19/25 08:22 Dose: 3 ml Home Medications ?Medication ?Instructions ?Recorded ?Confirmed ?Last Taken ?Type amlodipine 5 mg tablet 5 mg PO BEDTIME 12/09/2303/15/25 History clonazepam 1 mg tablet 1 mg PO BEDTIME PRN Anxiety 12/09/23 03/16/25 12/28/23 History lamotrigine 200 mg tablet 300 mg PO DAILY 12/09/2325 History methylphenidate HCl 10 mg tablet 10 mg PO DAILY 03/16/25 03/16/25 History methylphenidate HCl 54 mg 54 mg PO DAILY 12/09/2302/2403/16/25 History tablet,extended release 24 hr metoprolol succinate 50 mg 50 mg PO DAILY 12/09/2303/16/25 History tablet,extended release 24 hr risperidone 1 mg tablet (Risperdal) 1 mg PO BEDTIME 03/16/25 03/15/25 History apixaban 5 mg tablet (Eliquis) 5 mg PO BID@0500,1700 0 03/16/25 03/16/25 03/16/25 History barium sulfate 2 % (w/v) oral 450 ml PO BID PRN cat sc an 03/16/25 03/16/25 Unknown History suspension (Readi-Cat 2) dexamethasone 4 mg tablet 4 mg PO WETH with chemothera py 03/16/25 03/16/25 03/15/25 History omeprazole 20 mg capsule,delayed 20 mg PO BEDTIME 02/2403/16/25 03/15/25 History release ondansetron 8 mg disintegrating 8 mg PO Q8H PRN Nausea And Vomiting 03/16/25 03/16/25 Unknown History tablet Physical Exam 2 Vital Signs: Vital Signs: Last Vital Signs Temp 98 F 03/19/25 06:55 Pulse 107 H 03/19/25 06:55 Resp 16 03/19/25 06:55 BP 130/84 03/19/25 06:55 Pulse Ox 94 03/19/25 06:55 O2 Del Method Room Air 03/19/25 06:55 BMI result Body Mass Index 27.1 Const: Other: He appears comfortable, alert General: no acute distress Resp: Effort & Inspection: normal respiratory effort Cardio: Rhythm: regular rhythm GI: Other: Minimally distended, overall very benign findings Palpation (GI): Soft to palpation, not firm and no guarding Results Labs 03/22/25 06:27 03/22/25 06:27 Labs: Abnormal lab results 03/19/25 Range/Units 05:38 Hgb 13.9 L (14.0-18.0) g/dl Hct 40.6 L (42.0-52.0) % MPV 9.0 L (9.4-12.4) fL Absolute Nucleated RBC 0.060 H (0.0-0.012) X10*3/uL Nucleated RBC % (auto) 0.9 H (0.0-0.2) /100WBC Neutrophils % (Manual) 33 L (45-73) % Band Neutrophils % 22 H (3-5) % Lymphocytes % (Manual) 17 L (20-40) % Monocytes % (Manual) 21 H (2-11) % Monocytes # (Manual) 1.4 H (0.1-1.2) X10*3/uL Sodium 134 L (135-145) mmol/L Potassium 2.9 L* (3.3-5.1) mmol/L Carbon Dioxide 17 L (22-29) mmol/L Anion Gap 21 H (12-20) BUN 18 H (9-16) mg/dL Fasting Glucose 131 H (60-99) mg/dL Total Protein 5.7 L (6.5-8.0) g/dL Albumin 3.2 L (3.5-5.0) g/dL Short CBC 03/19/25 Range/Units 05:38 WBC 6.9 (4.8-10.8) X10*3/uL Hgb 13.9 L (14.0-18.0) g/dl Hct 40.6 L (42.0-52.0) % Plt Count 264 (160-400) X10*3/uL BMP 03/19/25 05:38 Sodium 134 L Potassium 2.9 L* Chloride 99 Carbon Dioxide 17 L BUN 18 H Creatinine 0.54 Calcium 8.5 Liver Function 03/19/25 Range/Units 05:38 Total Bilirubin 0.9 (0.0-1.0) mg/dL AST 31 (5-37) U/L ALT 10 (0-40) U/L Alkaline Phosphatase 69 (39-117) U/L Albumin 3.2 L (3.5-5.0) g/dL All other labs normal. Assessment and Plan (1) Abdominal distention: Status: Acute 60-year-old male with known metastatic colon cancer, ongoing chemo therapy, admitted on 03/16/2025 for abdominal distention, pain, and chills He had a CAT scan showing diffuse dilatation of the colon and findings suggestive of distal colitis. He does have some areas of narrowing in the sigmoid as well as the rectosigmoid. His known cancer is in the area of the rectosigmoid. Clinically, he is not presenting with obstruction. His abdominal exam is soft and very benign. He is passing flatus as well as diarrhea. He says he is already scheduled by Dr. Gregg for a sigmoidoscopy tomorrow and possible stenting. He looks well overall. I will follow along while he is in the hospital. Procedures Date of Service Date of Service: 03/22/25
[2025-03-19 15:51] LABS: E. coli EAEC Not Detected (Not Detect.); E. coli EPEC Not Detected (Not Detect.); E. coli ETEC Not Detected (Not Detect.); E. coli STEC Not Detected (Not Detect.); Shigella sp./EIEC Not Detected (Not Detect.)
[2025-03-19 16:00] VITALS: BP 130/96; PULSE 103; RESP 18; TEMP 36.1; O2SAT 92
[2025-03-19 19:43] VITALS: BP 132/96; PULSE 101; RESP 18; TEMP 36.5; O2SAT 91
[2025-03-20] VITALS (11 sets, daily range): BP systolic 131–162; BP diastolic 90–108; PULSE 93–111; RESP 16–22; TEMP 36.1–37.7; O2SAT 92–95; BMI 27.1
--- NOTE | 2025-03-20 | ECG_ITS ---
Test Reason : preop Blood Pressure : */* mmHG Vent. Rate : 101 BPM Atrial Rate : 101 BPM P-R Int : 156 ms QRS Dur : 90 ms QT Int : 350 ms P-R-T Axes : 6 -27 46 degrees QTcB Int : 453 ms Sinus tachycardia Inferior infarct (cited on or before 28-Mar-2024) Anterolateral infarct (cited on or before 28-Mar-2024) Abnormal ECG When compared with ECG of 28-Mar-2024 12:55, Vent. rate has increased by 33 bpm Referred By: Terri Leo Electronically Signed By:
[2025-03-20 00:20] LABS: Appearance Urine Cloudy; Glucose Urine UA Negative (Negative); PH 6.5 (5.0-9.0); Specific Gravity - Urine >= 1.030 (1.005-1.025); UMIC TRIGGER UACC YES
[2025-03-20] MEDS: diazePAM 10 MG/2 ML CARTRIDGE IVPUSH (06:03)
[2025-03-20 06:35] LABS: Creatinine Clr Calc Pharmacy 196.0; Estimated Glomerular Filt Rate > 60
--- NOTE | 2025-03-20 07:51 | PM.PNGS ---
Subjective Subjective Date of Service: 03/20/25 Interval history: States he is having a panic attack Very anxious Pain level of the same Passing flatus Physical Exam Vital Signs: Vital Signs: Last Vital Signs Temp 97.6 F 03/20/25 07:26 Pulse 110 H 03/20/25 07:26 Resp 20 03/20/25 07:26 BP 147/100 H 03/20/25 07:26 Pulse Ox 92 03/20/25 07:26 O2 Del Method Room Air 03/20/25 07:26 O2 Flow Rate 2 03/20/25 03:09 BMI result Body Mass Index 27.1 Const: Other: Looks very anxious Resp: Other: Hyperventilating little bit Cardio: Rate: tachycardic GI: Other: Mild diffuse tenderness Palpation (GI): Soft to palpation, not firm, no guarding and not rigid Objective Data Active Medications Acetaminophen (Acetaminophen 325 Mg Tablet) 650 mg PO Q6H PRN PRN Reason: Pain, Mild 1-3,fever,headache Albuterol/Ipratropium (Albuterol/Iprat 2.5/0.5mg 3 Ml Ampul.Neb) 3 ml INHALE Q4H PRN PRN Reason: Shortness of Breath/Wheezing Amlodipine Besylate (Amlodipine Besylate 5 Mg Tablet) 5 mg PO BEDTIME [facility]; Protocol Last Admin: 03/19/25 19:58 Dose: 5 mg Documented By: ARELY Apixaban (Apixaban 5 Mg Tablet) 5 mg PO BID@0500,1700 [facility] On Hold: 03/19/25 17:09 Last Admin: 03/19/25 15:59 Dose: 5 mg Documented By: YARON Calcium Carbonate (Calcium Carbonate 750 Mg Tab.Chew) 750 mg PO Q4H PRN PRN Reason: Heartburn Clonazepam (Clonazepam 1 Mg Tablet) 1 mg PO BEDTIME PRN PRN Reason: Anxiety Last Admin: 03/20/25 02:16 Dose: 1 mg Documented By: ARELY Dexamethasone (Dexamethasone 4 Mg Tablet) 4 mg PO WETH [facility] Diazepam (Diazepam 10 Mg/2 Ml Cartridge) 10 mg IVPUSH Q6H PRN PRN Reason: Anxiety Last Admin: 03/20/25 06:03 Dose: 10 mg Documented By: ARELY Diphenoxylate HCl/Atropine (Diphenoxylate/Atrop 2.5/0.025 Tablet) 1 tab PO DAILY PRN PRN Reason: Diarrhea Hydroxyzine HCl (Hydroxyzine Hcl 25 Mg Tablet) 25 mg PO TID PRN PRN Reason: Itching Cefepime HCl (Maxipime) 2 gm in 50 mls @ 100 mls/hr IV Q8H [facility] Last Infusion: 03/20/25 00:20 Dose: Infused Documented By: ARELY Vancomycin HCl 1,250 mg/ (Sodium Chloride) 250 mls @ 166.667 mls/hr IV Q8H [facility] Last Infusion: 03/20/25 03:53 Dose: Infused Documented By: ARELY Lamotrigine (Lamotrigine 100 Mg Tablet) 250 mg PO DAILY [facility] Last Admin: 03/19/25 08:19 Dose: 250 mg Documented By: YARON Magnesium Hydroxide (Milk Of Magnesia 30 Ml Oral.Susp) 30 ml PO DAILY PRN PRN Reason: Constipation Magnesium Oxide (Magnesium Oxide 400 Mg Tablet) 400 mg PO DAILY [facility] Last Admin: 03/19/25 08:19 Dose: 400 mg Documented By: YARON Melatonin (Melatonin 3 Mg Tablet) 6 mg PO BEDTIME PRN PRN Reason: Insomnia Methylphenidate HCl (Methylphenidate Hcl 10 Mg Tablet) 10 mg PO DAILY [facility] Last Admin: 03/19/25 08:20 Dose: 10 mg Documented By: YARON Metoprolol Succinate (Metoprolol Succinate Er 50 Mg Tab.Er.24h) 50 mg PO DAILY [facility]; Protocol Last Admin: 03/19/25 08:19 Dose: 50 mg Documented By: YARON Morphine Sulfate (Morphine Sulfate 4 Mg/Ml Cartridge) 4 mg IVPUSH Q3H PRN; Protocol PRN Reason: Pain, Moderate(Pain Scale 4-6) Last Admin: 03/19/25 20:09 Dose: 4 mg Documented By: ARELY Omeprazole (Omeprazole 20 Mg Capsule.Dr) 20 mg PO BEDTIME [facility] Last Admin: 03/19/25 19:58 Dose: 20 mg Documented By: ARELY Ondansetron HCl (Ondansetron Hcl 4 Mg/2 Ml Vial) 4 mg IVPUSH Q8H PRN PRN Reason: Nausea and Vomiting Pharmacy Consult (Consult Rx Vancomycin Dosing) 1 each MISCELLANE DAILY PRN PRN Reason: Consult order Polyethylene Glycol (Polyethylene Glycol 3350 17 Gm Powd.Pack) 17 gm PO DAILY PRN PRN Reason: Constipation Potassium Chloride (Potassium Chloride Er 10 Meq Tablet.Er) 20 meq PO DAILY [facility] Last Admin: 03/19/25 08:19 Dose: 20 meq Documented By: YARON Risperidone (Risperidone 1 Mg Tablet) 1 mg PO BEDTIME [facility] Last Admin: 03/19/25 19:58 Dose: 1 mg Documented By: ARELY Senna (Sennosides 8.6 Mg Tablet) 17.2 mg PO BEDTIME [facility] Last Admin: 03/19/25 19:58 Dose: 17.2 mg Documented By: ARELY Simethicone (Simethicone 80 Mg Tab.Chew) 80 mg PO BID PRN PRN Reason: Abdominal bloating Sodium Chloride (0.9 % Sodium Chloride Flush 3 Ml Syringe) 3 ml IVFLUSH QSHIFT [facility] Last Admin: 03/19/25 19:58 Dose: 3 ml Documented By: ARELY Labs 03/19/25 05:38 03/20/25 06:11 Labs: Laboratory Results - last 24 hr 03/17/25 03/19/25 03/19/25 05:52 05:38 13:55 Neutrophils % (Manual) 33 L Band Neutrophils % 22 H Lymphocytes % (Manual) 17 L Atypical Lymphs % (Man) 2 Monocytes % (Manual) 21 H Eosinophils % (Manual) 2 Myelocytes % 2 Promyelocytes % 1 Abs Neuts (Manual) 3.8 Lymphocytes # (Manual) 1.2 Atyp Lymphs # (Manual) 0.1 Monocytes # (Manual) 1.4 H Eosinophils # (Manual) 0.1 Myelocytes # 0.1 Promyelocytes # 0.1 Smudge Cells PRESENT Toxic Granulation PRESENT Toxic Vacuolation PRESENT Dohle Bodies PRESENT Platelet Estimate NORMAL Large Platelets PRESENT Plt Morphology Comment NOTED RBC Morphology NOTED Polychromasia 1+ (0-2) Ovalocytes 1+ (5-14) Tavon Cells 3+ (>5) Acanthocytes (Spur) 2+ (3-5) Smear Path Review SEE NOTE Estim Creat Clear Calc Estimated GFR Urine Color Urine Appearance Urine pH Ur Specific [place] Urine Protein Urine Glucose (UA) Urine Ketones Urine Blood Urine Nitrite Ur Leukocyte Esterase Urine RBC Urine WBC Ur Squamous Epith Cells Urine Bacteria Hyaline Casts Stl C. cayetanensis PCR Not Detected Stool Rotavirus A PCR Not Detected Stl Adenov F 40/41 PCR Not Detected Stool Astrovirus (PCR) Not Detected Stool Campylobacter PCR Not Detected Stool Cryptosporidium PCR Not Detected Stl Sh Tox Pr E STEC PCR Not Detected Stool E coli O157 PCR Not applicable Stl Enterotoxigenic E PCR Not Detected Stool EPEC (PCR) Not Detected Stool EAEC (PCR) Not Detected Stl E. histolytica PCR Not Detected Stool Giardia Lamblia PCR Not Detected Stl P. shigelloides PCR Not Detected Stool Salmonella PCR Not Detected Stool Sapovirus (PCR) Not Detected Stl Shigella/EIEC PCR Not Detected St Y.enterocolitica PCR Not Detected Stool Vibrio (PCR) Not Detected Stl Vibrio cholerae PCR Not Detected Stl Norovirus GI/GII PCR Not Detected Random Vancomycin C. difficile Tox B Gene NEGATIVE 03/19/25 03/19/25 03/20/25 16:16 23:35 06:11 Neutrophils % (Manual) Band Neutrophils % Lymphocytes % (Manual) Atypical Lymphs % (Man) Monocytes % (Manual) Eosinophils % (Manual) Myelocytes % Promyelocytes % Abs Neuts (Manual) Lymphocytes # (Manual) Atyp Lymphs # (Manual) Monocytes # (Manual) Eosinophils # (Manual) Myelocytes # Promyelocytes # Smudge Cells Toxic Granulation Toxic Vacuolation Dohle Bodies Platelet Estimate Large Platelets Plt Morphology Comment RBC Morphology Polychromasia Ovalocytes Tavon Cells Acanthocytes (Spur) Smear Path Review Estim Creat Clear Calc 196.0 Estimated GFR > 60 Urine Color Dark Yellow Urine Appearance Cloudy Urine pH 6.5 Ur Specific [place] >= 1.030 H Urine Protein 30 (1+) H Urine Glucose (UA) Negative Urine Ketones 80 Urine Blood Negative Urine Nitrite Negative Ur Leukocyte Esterase Negative Urine RBC 0-2 Urine WBC 0-5 Ur Squamous Epith Cells 3-5 Urine Bacteria Trace Hyaline Casts 6-10 Stl C. cayetanensis PCR Stool Rotavirus A PCR Stl Adenov F 40/41 PCR Stool Astrovirus (PCR) Stool Campylobacter PCR Stool Cryptosporidium PCR Stl Sh Tox Pr E STEC PCR Stool E coli O157 PCR Stl Enterotoxigenic E PCR Stool EPEC (PCR) Stool EAEC (PCR) Stl E. histolytica PCR Stool Giardia Lamblia PCR Stl P. shigelloides PCR Stool Salmonella PCR Stool Sapovirus (PCR) Stl Shigella/EIEC PCR St Y.enterocolitica PCR Stool Vibrio (PCR) Stl Vibrio cholerae PCR Stl Norovirus GI/GII PCR Random Vancomycin 15.7 C. difficile Tox B Gene Procedures Date of Service Date of Service: 03/20/25 Progress Note: A&P Assessment and plan (1) Abdominal distention: Status: Acute Assessment and Plan: With known metastatic colon cancer at the rectosigmoid Colon distended diffusely Passing flatus Abdomen is soft For flex sig today Has severe anxiety Time Spent With Patient Time: Total time managing care of this patient today ____ minutes. Quality Stroke Does the patient have a stroke diagnosis?: No Reason for No Anti-thrombotic by Day Two: N/A - Med Ordered VTE Prior VTE?: No VTE Risk Level:: Medical - moderate - high VTE Device Contraindication: N/A - Device Ordered VTE Drug Contraindication: N/A - Med Ordered
[2025-03-20] MEDS: Metoprolol Succinate ER 50 MG TAB.ER.24H PO (07:54)
[2025-03-20] MEDS: Potassium Chloride ER 10 MEQ TABLET.ER 20 MEQ PO (07:54)
[2025-03-20] MEDS: 0.9 % Sodium Chloride Flush 3 ML SYRINGE IVFLUSH (07:55)
[2025-03-20] MEDS: cefEPime HCl/D5W 2 GM/50 ML PIGGYBACK IV ×3 (08:04→23:54)
[2025-03-20 08:38] LABS: Potassium 2.8 mmol/L (3.3-5.1)
[2025-03-20] MEDS: Potassium Chloride/H20 10 MEQ/100 ML PIGGYBACK 100 MEQ IV ×2 (09:34→10:51)
[2025-03-20] MEDS: KCl 20 mEq in 5% Dex/0.9% Sod 20 MEQ/1,000 ML IV.SOLN 100 MEQ IVCONT (11:24)
--- NOTE | 2025-03-20 11:25 | P.PNIM_ITS ---
Subjective Subjective Date of Service: 03/20/25 Review of Systems Follow up colon mass still with diarrhea pain controlled still with diarrhea Physical Exam 2 Exam: Exam: Appearing in no acute distress lung sounds are clear to auscultation heart regular rate rhythm, clear S1, S2 positive bowel sounds, Distended abd neuro patient is alert x3, no focal deficits Vital Signs: Vital Signs: Last Vital Signs Temp 97.6 F 03/20/25 07:26 Pulse 110 H 03/20/25 07:26 Resp 20 03/20/25 07:26 BP 147/100 H 03/20/25 07:26 Pulse Ox 92 03/20/25 07:26 O2 Del Method Room Air 03/20/25 07: O2 Flow Rate 2 03/20/25 03:09 BMI result Body Mass Index 27.1 Objective Data Active Medications Acetaminophen (Acetaminophen 325 Mg Tablet) 650 mg PO Q6H PRN PRN Reason: Pain, Mild 1-3,fever,headache Albuterol/Ipratropium (Albuterol/Iprat 2.5/0.5mg 3 Ml Ampul.Neb) 3 ml INHALE Q4H PRN PRN Reason: Shortness of Breath/Wheezing Amlodipine Besylate (Amlodipine Besylate 5 Mg Tablet) 5 mg PO BEDTIME [facility]; Protocol Last Admin: 03/19/25 19:58 Dose: 5 mg Documented By: ARELY Apixaban (Apixaban 5 Mg Tablet) 5 mg PO BID@0500,1700 [facility] On Hold: 03/19/25 17:09 Last Admin: 03/19/25 15:59 Dose: 5 mg Documented By: YARON Calcium Carbonate (Calcium Carbonate 750 Mg Tab.Chew) 750 mg PO Q4H PRN PRN Reason: Heartburn Clonazepam (Clonazepam 1 Mg Tablet) 1 mg PO BEDTIME PRN PRN Reason: Anxiety Last Admin: 03/20/25 02:16 Dose: 1 mg Documented By: ARELY Dexamethasone (Dexamethasone 4 Mg Tablet) 4 mg PO WETH [facility] Diazepam (Diazepam 10 Mg/2 Ml Cartridge) 10 mg IVPUSH Q6H PRN PRN Reason: Anxiety Last Admin: 03/20/25 06:03 Dose: 10 mg Documented By: ARELY Diphenoxylate HCl/Atropine (Diphenoxylate/Atrop 2.5/0.025 Tablet) 1 tab PO DAILY PRN PRN Reason: Diarrhea Hydroxyzine HCl (Hydroxyzine Hcl 25 Mg Tablet) 25 mg PO TID PRN PRN Reason: Itching Cefepime HCl (Maxipime) 2 gm in 50 mls @ 100 mls/hr IV Q8H [facility] Last Infusion: 03/20/25 08:52 Dose: Infused Documented By: YARON Vancomycin HCl 1,250 mg/ (Sodium Chloride) 250 mls @ 166.667 mls/hr IV Q8H [facility] Last Admin: 03/20/25 09:35 Dose: 166.67 mls/hr Documented By: YARON Potassium Chloride/Dextrose/Sod Cl (Kcl 20 Meq In 5% Dex/0.9% Sod) 20 meq in 1,000 mls @ 100 mls/hr IVCONT .Q10H [facility] Lamotrigine (Lamotrigine 100 Mg Tablet) 250 mg PO DAILY [facility] Last Admin: 03/20/25 07:55 Dose: 250 mg Documented By: YARON Magnesium Hydroxide (Milk Of Magnesia 30 Ml Oral.Susp) 30 ml PO DAILY PRN PRN Reason: Constipation Magnesium Oxide (Magnesium Oxide 400 Mg Tablet) 400 mg PO DAILY [facility] Last Admin: 03/20/25 07:54 Dose: 400 mg Documented By: YARON Melatonin (Melatonin 3 Mg Tablet) 6 mg PO BEDTIME PRN PRN Reason: Insomnia Methylphenidate HCl (Methylphenidate Hcl 10 Mg Tablet) 10 mg PO DAILY [facility] Last Admin: 03/20/25 07:54 Dose: 10 mg Documented By: YARON Metoprolol Succinate (Metoprolol Succinate Er 50 Mg Tab.Er.24h) 50 mg PO DAILY [facility]; Protocol Last Admin: 03/20/25 07:54 Dose: 50 mg Documented By: YARON Morphine Sulfate (Morphine Sulfate 4 Mg/Ml Cartridge) 4 mg IVPUSH Q3H PRN; Protocol PRN Reason: Pain, Moderate(Pain Scale 4-6) Last Admin: 03/20/25 09:34 Dose: 4 mg Documented By: YARON Omeprazole (Omeprazole 20 Mg Capsule.Dr) 20 mg PO BEDTIME [facility] Last Admin: 03/19/25 19:58 Dose: 20 mg Documented By: ARELY Ondansetron HCl (Ondansetron Hcl 4 Mg/2 Ml Vial) 4 mg IVPUSH Q8H PRN PRN Reason: Nausea and Vomiting Pharmacy Consult (Consult Rx Vancomycin Dosing) 1 each MISCELLANE DAILY PRN PRN Reason: Consult order Pharmacy Consult (Consult Rx Parenteral Nutrition Ordering) 1 each MISCELLANE DAILY PRN PRN Reason: Consult order Polyethylene Glycol (Polyethylene Glycol 3350 17 Gm Powd.Pack) 17 gm PO DAILY PRN PRN Reason: Constipation Potassium Chloride (Potassium Chloride Er 10 Meq Tablet.Er) 20 meq PO DAILY [facility] Last Admin: 03/20/25 07:54 Dose: 20 meq Documented By: YARON Risperidone (Risperidone 1 Mg Tablet) 1 mg PO BEDTIME [facility] Last Admin: 03/19/25 19:58 Dose: 1 mg Documented By: ARELY Senna (Sennosides 8.6 Mg Tablet) 17.2 mg PO BEDTIME [facility] Last Admin: 03/19/25 19:58 Dose: 17.2 mg Documented By: ARELY Simethicone (Simethicone 80 Mg Tab.Chew) 80 mg PO BID PRN PRN Reason: Abdominal bloating Sodium Chloride (0.9 % Sodium Chloride Flush 3 Ml Syringe) 3 ml IVFLUSH QSHIFT [facility] Last Admin: 03/20/25 07:55 Dose: 3 ml Documented By: YARON Labs 03/19/25 05:38 03/20/25 08:19 Labs: Laboratory Results - last 24 hr 03/19/25 03/19/25 03/19/25 13:55 16:16 23:35 Estim Creat Clear Calc Estimated GFR Urine Color Dark Yellow Urine Appearance Cloudy Urine pH 6.5 Ur Specific [place] >= 1.030 H Urine Protein 30 (1+) H Urine Glucose (UA) Negative Urine Ketones 80 Urine Blood Negative Urine Nitrite Negative Ur Leukocyte Esterase Negative Urine RBC 0-2 Urine WBC 0-5 Ur Squamous Epith Cells 3-5 Urine Bacteria Trace Hyaline Casts 6-10 Stl C. cayetanensis PCR Not Detected Stool Rotavirus A PCR Not Detected Stl Adenov F 40/41 PCR Not Detected Stool Astrovirus (PCR) Not Detected Stool Campylobacter PCR Not Detected Stool Cryptosporidium PCR Not Detected Stl Sh Tox Pr E STEC PCR Not Detected Stool E coli O157 PCR Not applicable Stl Enterotoxigenic E PCR Not Detected Stool EPEC (PCR) Not Detected Stool EAEC (PCR) Not Detected Stl E. histolytica PCR Not Detected Stool Giardia Lamblia PCR Not Detected Stl P. shigelloides PCR Not Detected Stool Salmonella PCR Not Detected Stool Sapovirus (PCR) Not Detected Stl Shigella/EIEC PCR Not Detected St Y.enterocolitica PCR Not Detected Stool Vibrio (PCR) Not Detected Stl Vibrio cholerae PCR Not Detected Stl Norovirus GI/GII PCR Not Detected Random Vancomycin 15.7 C. difficile Tox B Gene NEGATIVE 03/20/25 06:11 Estim Creat Clear Calc 196.0 Estimated GFR > 60 Urine Color Urine Appearance Urine pH Ur Specific [place] Urine Protein Urine Glucose (UA) Urine Ketones Urine Blood Urine Nitrite Ur Leukocyte Esterase Urine RBC Urine WBC Ur Squamous Epith Cells Urine Bacteria Hyaline Casts Stl C. cayetanensis PCR Stool Rotavirus A PCR Stl Adenov F 40/41 PCR Stool Astrovirus (PCR) Stool Campylobacter PCR Stool Cryptosporidium PCR Stl Sh Tox Pr E STEC PCR Stool E coli O157 PCR Stl Enterotoxigenic E PCR Stool EPEC (PCR) Stool EAEC (PCR) Stl E. histolytica PCR Stool Giardia Lamblia PCR Stl P. shigelloides PCR Stool Salmonella PCR Stool Sapovirus (PCR) Stl Shigella/EIEC PCR St Y.enterocolitica PCR Stool Vibrio (PCR) Stl Vibrio cholerae PCR Stl Norovirus GI/GII PCR Random Vancomycin C. 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 oncology, PE on Eliquis, anxiety, marijuana use presents to the emergency department from his oncology visit for concerns of possible small bowel obstruction. Patient diagnosed with colitis and pneumonia and is being admitted with neutropenic precautions. Colitis, colon mass still with diarrhea, likely more from obstruction from mass KUB today showed distal colon obstruction progression secondary to rectal mass continue Vanco/Cefipime stool studies and cdiff negative PPN started due to no oral intake since admission Discussed with GI rec NGT for decompression, patient declined, GI aware. Plan for Colon stent today hypokalemia repleted and resolved Neutropenia improved CBC with differential daily Left lower lobe opacity continue vanco/cefepime Duo nebs p.r.n Hypertension Continue amlodipine Metastatic rectosigmoid mass currenlty undergoing outpatient chemo, palliative Mental health Continue home medications Hx PE Eliquis on hold DVT prophylaixs: Eliquis, held for surgery DNR DNI Quality Stroke Does the patient have a stroke diagnosis?: No Reason for No Anti-thrombotic by Day Two: N/A - Med Ordered VTE Prior VTE?: No VTE Risk Level:: Medical - moderate - high VTE Device Contraindication: N/A - Device Ordered VTE Drug Contraindication: N/A - Med Ordered
[2025-03-20 11:55] LABS: Alanine Aminotransferase 8 U/L (0-40); Albumin Level 3.1 g/dL (3.5-5.0); Alkaline Phosphatase 64 U/L (39-117); Anion Gap 19 (12-20); Aspartate Amino Transferase 33 U/L (5-37); Blood Urea Nitrogen 19 mg/dL (9-16); Calcium 9.0 mg/dL (8.4-10.2); Carbon Dioxide 16 mmol/L (22-29); Chloride 102 mmol/L (96-108); Creatinine Clr Calc Pharmacy 176.8; Estimated Glomerular Filt Rate > 60; Magnesium 2.1 mg/dL (1.6-2.6); Potassium 3.6 mmol/L (3.3-5.1); Sodium 133 mmol/L (135-145); Total Protein 5.9 g/dL (6.5-8.0)
--- NOTE | 2025-03-20 12:07 | MHC.CLN ---
CONSULT FOR PPN PT DAY 5 NPO REVIEWED LABS DISCUSSED WITH PHARMACY RECOMMEND PPN AT 60ML/HR TO PROVIDE [id number], 144G DEXTROSE, 61G PROTEIN REPLETE LYTES NEEDED SEE FULL ASSESSMENT
--- NOTE | 2025-03-20 12:51 | P.PNGI_ITS ---
Subjective Subjective Date of Service: 03/20/25 Interval History: distended abdomen, uncomfortable some nausea no vomiting CXR with ileus and distended stomach Critical Care Time (minutes): 0 Physical Exam 2 Exam: Exam: EXAM: GENERAL: The patient is uncomfortable VITAL SIGNS:see workflow HEENT: Nonicteric sclerae, PERRLA, EOMI. Oropharynx clear. Moist mucous membranes. Conjunctivae appear well perfused. No thyroid mass. CHEST: Chest wall is nontender. HEART: Regular rate and rhythm without murmurs. LUNGS: Clear to auscultation bilaterally, tachypneic ABDOMEN: distended tympanic abdomen, reduced bowel sounds, nontender, no organomegaly.no flank tenderness SKIN: No rash, no excessive bruising, petechiae, or purpura. NEUROLOGIC: Cranial nerves II-XII intact without motor/sensory deficit. Psych: normal affect Vital Signs: Vital Signs: Last Vital Signs Temp 97.6 F 03/20/25 07:26 Pulse 110 H 03/20/25 07:26 Resp 20 03/20/25 07:26 BP 147/100 H 03/20/25 07:26 Pulse Ox 92 03/20/25 07:26 O2 Del Method Room Air 03/20/25 07:26 O2 Flow Rate 2 03/20/25 03:09 BMI result Body Mass Index 27.1 Objective Data Labs 03/19/25 05:38 03/20/25 08:19 Labs: Laboratory Results - last 24 hr 03/19/25 03/19/25 03/19/25 13:55 16:16 23:35 Sodium Potassium Chloride Carbon Dioxide Anion Gap BUN Creatinine Estim Creat Clear Calc Estimated GFR Random Glucose Calcium Phosphorus Magnesium Total Bilirubin AST ALT Alkaline Phosphatase Total Protein Albumin Urine Color Dark Yellow Urine Appearance Cloudy Urine pH 6.5 Ur Specific [place] >= 1.030 H Urine Protein 30 (1+) H Urine Glucose (UA) Negative Urine Ketones 80 Urine Blood Negative Urine Nitrite Negative Ur Leukocyte Esterase Negative Urine RBC 0-2 Urine WBC 0-5 Ur Squamous Epith Cells 3-5 Urine Bacteria Trace Hyaline Casts 6-10 Stl C. cayetanensis PCR Not Detected Stool Rotavirus A PCR Not Detected Stl Adenov F 40/41 PCR Not Detected Stool Astrovirus (PCR) Not Detected Stool Campylobacter PCR Not Detected Stool Cryptosporidium PCR Not Detected Stl Sh Tox Pr E STEC PCR Not Detected Stool E coli O157 PCR Not applicable Stl Enterotoxigenic E PCR Not Detected Stool EPEC (PCR) Not Detected Stool EAEC (PCR) Not Detected Stl E. histolytica PCR Not Detected Stool Giardia Lamblia PCR Not Detected Stl P. shigelloides PCR Not Detected Stool Salmonella PCR Not Detected Stool Sapovirus (PCR) Not Detected Stl Shigella/EIEC PCR Not Detected St Y.enterocolitica PCR Not Detected Stool Vibrio (PCR) Not Detected Stl Vibrio cholerae PCR Not Detected Stl Norovirus GI/GII PCR Not Detected Random Vancomycin 15.7 C. difficile Tox B Gene NEGATIVE 03/20/25 03/20/25 06:11 08:19 Sodium 133 L Potassium 2.8 L* 3.6 D Chloride 102 Carbon Dioxide 16 L Anion Gap 19 BUN 19 H Creatinine 0.46 L 0.51 Estim Creat Clear Calc 196.0 176.8 Estimated GFR > 60 > 60 Random Glucose 134 H Calcium 9.0 Phosphorus 2.1 L Magnesium 2.1 Total Bilirubin 0.7 AST 33 ALT 8 Alkaline Phosphatase 64 Total Protein 5.9 L Albumin 3.1 L Urine Color Urine Appearance Urine pH Ur Specific [place] Urine Protein Urine Glucose (UA) Urine Ketones Urine Blood Urine Nitrite Ur Leukocyte Esterase Urine RBC Urine WBC Ur Squamous Epith Cells Urine Bacteria Hyaline Casts Stl C. cayetanensis PCR Stool Rotavirus A PCR Stl Adenov F 40/41 PCR Stool Astrovirus (PCR) Stool Campylobacter PCR Stool Cryptosporidium PCR Stl Sh Tox Pr E STEC PCR Stool E coli O157 PCR Stl Enterotoxigenic E PCR Stool EPEC (PCR) Stool EAEC (PCR) Stl E. histolytica PCR Stool Giardia Lamblia PCR Stl P. shigelloides PCR Stool Salmonella PCR Stool Sapovirus (PCR) Stl Shigella/EIEC PCR St Y.enterocolitica PCR Stool Vibrio (PCR) Stl Vibrio cholerae PCR Stl Norovirus GI/GII PCR Random Vancomycin C. difficile Tox B Gene Microbiology Microbiology Results: Microbiology 03/16/25 15:58 Blood - Venous Blood Culture - Preliminary No growth after 48 hours. 03/16/25 15:58 Blood - Venous Blood Culture - Preliminary No growth after 48 hours. Procedures Date of Service Date of Service: 03/20/25 Progress Note: A&P Assessment and plan (1) Neoplasm of rectosigmoid junction: Status: Acute Plan 1/ distended abdomen causing resp splinting with ileus from low K and rectal mass PLAN: 1/ K has improved 2/ recommend gastric decompression wt NGT to reduce procedural and anesthesia risk 3/ will plan for colonic stent placement later today Time Spent With Patient Time: Total time managing care of this patient today ____ minutes. Quality Stroke Does the patient have a stroke diagnosis?: No Reason for No Anti-thrombotic by Day Two: N/A - Med Ordered VTE Prior VTE?: No VTE Risk Level:: Medical - moderate - high VTE Device Contraindication: N/A - Device Ordered VTE Drug Contraindication: N/A - Med Ordered
[2025-03-20 14:02] LABS: B Type Natriuretic Peptide 89 pg/mL (<100)
--- NOTE | 2025-03-20 14:29 | PC.NURSE ---
Dr. Tobias and author visited with patient on floor. doctor explained importance of NG tube prior to procedure and patient agreed for doctor to place in OR prior to procedure. Dr. Rivera updated that patient had Eliquis yesterday and that when IV from floor was removed that pressure was held for approx. 5 minutes prior to bleeding stopping at IV removal site. IV from floor was leaking with flush. Dressing removed and IV tightened but still leaking with flush. at bedside and updated by dr. rivera and dr. tobias preop.
--- NOTE | 2025-03-20 16:22 | W.PM.OPN ---
Operative Note Operative Note Date of Service: 03/20/25 Narrative: Procedure Description: sigmoidoscopy with stent placement Indication: Rectal sigmoid mass Anesthesia: MAC Sigmoidoscopy Instrument: Adult colonoscope Colonoscopy Monitoring: Vital signs and clinical assessment, continuous EKG monitoring, Pulse oximetry, Carbon Dioxide monitoring and blood pressure monitoring were done throughout the procedure. Procedure: The patient was placed in the left lateral decubitis position and pre-procedure medications were administered. After a digital rectal examination of the ano-rectum, the video colonoscope was inserted into the rectum and advanced through the colon to the sigmoid colon The scope was slowly withdrawn in a retrograde panoramic fashion and the colon mucosa was carefully examined . Findings and interventions are described below. Procedure Difficulty: moderate Findings: Transverse Colon: normal Sigmoid Colon: inflammed, granular mucosa Rectum: Mid rectum at about 5 cm from anal verge stricture noted with surrounding erythema and friable tissue, scope was passed with gentle pressure and the proximal extent of the stricture noted. In total the stricture was about 6-7 cm in length. Clips were used to annie both ends. A biliary wire was passed and 22 mm x 9 cm stent was then directed using fluoroscopy over the wire and the scope was side by stent with the stent. Using endoscopic and fluoroscopic visualization the stent was deployed with a good margin from the distal end of the stricture and just enough away from the anal verge Anorectum - normal Colon preparation: poor Impression and Post Procedure Diagnosis: malignant stricture -colon Plan: low fiber diet avoid hard meats, veg, soft diet -but he has ileus right now and NGT was placed by anesthesia with good bilious output so wait for this to resolve before allowing PO diet. Above findings were reviewed with the patient and relevant handouts were provided if indicated.
--- NOTE | 2025-03-20 16:56 | PC.NURSE ---
patient ngt to suction. small amount bilious output. nasal securement placed. vss. no rectal bleeding. tranfer to inpatient unit
--- NOTE | 2025-03-20 17:16 | PC.NURSE ---
Family updated patient status and return to room
[2025-03-20] MEDS: Parenteral Nutrition 1,440 ML 60 ML IV (21:12)
[2025-03-21] MEDS: 0.9 % Sodium Chloride Flush 3 ML SYRINGE IVFLUSH ×4 (00:23→20:05)
[2025-03-21 04:00] VITALS: BP 147/94; PULSE 76; RESP 18; TEMP 36.4; O2SAT 92
[2025-03-21 06:00] VITALS: BMI 27.1
--- NOTE | 2025-03-21 07:05 | PC.NURSE ---
Addendum entered by Nelly Diana RN 03/21/25 07:07: TPN started 2100 on 03/20/2025 Original Note: TPN started at 2100. Provider said to hold fluids at this time, TPN is sufficient.
[2025-03-21 07:19] LABS: Alanine Aminotransferase 7 U/L (0-40); Albumin Level 2.9 g/dL (3.5-5.0); Alkaline Phosphatase 58 U/L (39-117); Anion Gap 12 (12-20); Aspartate Amino Transferase 19 U/L (5-37); Blood Urea Nitrogen 14 mg/dL (9-16); Calcium 7.9 mg/dL (8.4-10.2); Carbon Dioxide 25 mmol/L (22-29); Chloride 102 mmol/L (96-108); Creatinine Clr Calc Pharmacy 176.8; Estimated Glomerular Filt Rate > 60; Magnesium 1.9 mg/dL (1.6-2.6); Potassium 2.6 mmol/L (3.3-5.1); Sodium 136 mmol/L (135-145); Total Protein 5.2 g/dL (6.5-8.0)
[2025-03-21] MEDS: Metoprolol Succinate ER 50 MG TAB.ER.24H PO (07:31)
[2025-03-21] MEDS: Potassium Chloride ER 10 MEQ TABLET.ER 20 MEQ PO (07:31)
[2025-03-21] MEDS: cefEPime HCl/D5W 2 GM/50 ML PIGGYBACK IV ×3 (07:33→23:58)
--- NOTE | 2025-03-21 07:34 | PM.PNGS ---
Subjective Subjective Date of Service: 03/21/25 <Chyna Ibarra PA-C - Last Filed: 03/21/25 07:39> 03/21/25 <Shay Haro MD - Last Filed: 03/21/25 08:14> Interval history: Feels less bloated then yesterday. Has not passed flatus or BM in a day. Denies abd pain. Has had 4-5 cups of ice chips since last night. <Chyna Ibarra PA-C - Last Filed: 03/21/25 07:39> Physical Exam Vital Signs: Vital Signs: Last Vital Signs Temp 97.6 F 03/21/25 04:00 Pulse 76 03/21/25 04:00 Resp 18 03/21/25 04:00 BP 147/94 H 03/21/25 04:00 Pulse Ox 92 03/21/25 04:00 O2 Del Method Room Air 03/21/25 04:00 O2 Flow Rate 2 03/20/25 17:16 BMI result Body Mass Index 27.1 <Chyna Ibarra PA-C - Last Filed: 03/21/25 07:39> Const: General: comfortable, alert and ill appearing <Chyna Ibarra PA-C - Last Filed: 03/21/25 07:39> Orientation/consciousness: patient oriented x3 <Chyna Ibarra PA-C - Last Filed: 03/21/25 07:39> Resp: Other: some increased work of breathing <Chyna Ibarra PA-C - Last Filed: 03/21/25 07:39> Effort & Inspection: able to speak in complete sentences, no respiratory distress and no use of accessory muscles <Chyna Ibarra PA-C - Last Filed: 03/21/25 07:39> GI: Other: distended but soft mild upper abd tenderness <PAULINE Martell Last Filed: 03/21/25 07:39> Palpation (GI): Soft to palpation and no guarding <PAULINE Martell Last Filed: 03/21/25 07:39> Neuro: General: patient oriented x3 and moves all extremities <PAULINE Martell Last Filed: 03/21/25 07:39> Objective Data Active Medications Acetaminophen (Acetaminophen 325 Mg Tablet) 650 mg PO Q6H PRN PRN Reason: Pain, Mild 1-3,fever,headache Albuterol/Ipratropium (Albuterol/Iprat 2.5/0.5mg 3 Ml Ampul.Neb) 3 ml INHALE Q4H PRN PRN Reason: Shortness of Breath/Wheezing Amlodipine Besylate (Amlodipine Besylate 5 Mg Tablet) 5 mg PO BEDTIME RACHEL; Protocol Last Admin: 03/20/25 20:48 Dose: 5 mg Documented By: JOSE Apixaban (Apixaban 5 Mg Tablet) 5 mg PO BID@0500,1700 RACHEL On Hold: 03/19/25 17:09 Last Admin: 03/19/25 15:59 Dose: 5 mg Documented By: YARON Calcium Carbonate (Calcium Carbonate 750 Mg Tab.Chew) 750 mg PO Q4H PRN PRN Reason: Heartburn Clonazepam (Clonazepam 1 Mg Tablet) 1 mg PO BEDTIME PRN PRN Reason: Anxiety Last Admin: 03/20/25 02:16 Dose: 1 mg Documented By: ARELY Dexamethasone (Dexamethasone 4 Mg Tablet) 4 mg PO WETH RACHEL Diazepam (Diazepam 10 Mg/2 Ml Cartridge) 10 mg IVPUSH Q6H PRN PRN Reason: Anxiety Last Admin: 03/20/25 06:03 Dose: 10 mg Documented By: ARELY Diphenoxylate HCl/Atropine (Diphenoxylate/Atrop 2.5/0.025 Tablet) 1 tab PO DAILY PRN PRN Reason: Diarrhea Hydroxyzine HCl (Hydroxyzine Hcl 25 Mg Tablet) 25 mg PO TID PRN PRN Reason: Itching Cefepime HCl (Maxipime) 2 gm in 50 mls @ 100 mls/hr IV Q8H COUNTS INCLUDE 234 BEDS AT THE [facility] Last Infusion: 03/21/25 00:31 Dose: Infused Documented By: JOSE Potassium Chloride/Dextrose/Sod Cl (Kcl 20 Meq In 5% Dex/0.9% Sod) 20 meq in 1,000 mls @ 100 mls/hr IVCONT .Q10H RACHEL Last Admin: 03/21/25 07:00 Dose: Not Given Documented By: KARTHIKEYAN Non-Admin Reason: held Nutrition (Parenteral) (Parenteral Nutrition) 1,440 mls @ 60 mls/hr IV .Q24H COUNTS INCLUDE 234 BEDS AT THE [facility]; Protocol Stop: 03/21/25 20:59 Last Admin: 03/20/25 21:12 Dose: 60 mls/hr Documented By: JOSE Vancomycin HCl 1,000 mg/ (Sodium Chloride) 270 mls @ 270 mls/hr IV Q8H COUNTS INCLUDE 234 BEDS AT THE [facility] Last Infusion: 03/21/25 04:57 Dose: Infused Documented By: JOSE Potassium Chloride (Potassium Chloride/H20) 10 meq in 100 mls @ 100 mls/hr IV Q1H COUNTS INCLUDE 234 BEDS AT THE [facility] Stop: 03/21/25 11:29 Lamotrigine (Lamotrigine 100 Mg Tablet) 250 mg PO DAILY COUNTS INCLUDE 234 BEDS AT THE [facility] Last Admin: 03/20/25 07:55 Dose: 250 mg Documented By: YARON Magnesium Hydroxide (Milk Of Magnesia 30 Ml Oral.Susp) 30 ml PO DAILY PRN PRN Reason: Constipation Magnesium Oxide (Magnesium Oxide 400 Mg Tablet) 400 mg PO DAILY COUNTS INCLUDE 234 BEDS AT THE [facility] Last Admin: 03/20/25 07:54 Dose: 400 mg Documented By: YARON Melatonin (Melatonin 3 Mg Tablet) 6 mg PO BEDTIME PRN PRN Reason: Insomnia Methylphenidate HCl (Methylphenidate Hcl 10 Mg Tablet) 10 mg PO DAILY COUNTS INCLUDE 234 BEDS AT THE [facility] Last Admin: 03/20/25 07:54 Dose: 10 mg Documented By: YARON Metoprolol Succinate (Metoprolol Succinate Er 50 Mg Tab.Er.24h) 50 mg PO DAILY COUNTS INCLUDE 234 BEDS AT THE [facility]; Protocol Last Admin: 03/20/25 07:54 Dose: 50 mg Documented By: YARON Morphine Sulfate (Morphine Sulfate 4 Mg/Ml Cartridge) 4 mg IVPUSH Q3H PRN; Protocol PRN Reason: Pain, Moderate(Pain Scale 4-6) Last Admin: 03/21/25 03:43 Dose: 4 mg Documented By: JOSE Naloxone HCl (Naloxone Hcl 0.4 Mg/Ml Vial) 0.04 mg IVPUSH Q5M PRN PRN Reason: Excessive sedation or RR < 8 Naloxone HCl (Naloxone Hcl 0.4 Mg/Ml Vial) 0.04 mg IVPUSH Q5M PRN PRN Reason: Excessive sedation or RR < 8 Omeprazole (Omeprazole 20 Mg Capsule.Dr) 20 mg PO BEDTIME COUNTS INCLUDE 234 BEDS AT THE [facility] Last Admin: 03/20/25 20:48 Dose: 20 mg Documented By: JOSE Ondansetron HCl (Ondansetron Hcl 4 Mg/2 Ml Vial) 4 mg IVPUSH Q8H PRN PRN Reason: Nausea and Vomiting Pharmacy Consult (Consult Rx Vancomycin Dosing) 1 each MISCELLANE DAILY PRN PRN Reason: Consult order Pharmacy Consult (Consult Rx Parenteral Nutrition Ordering) 1 each MISCELLANE DAILY PRN PRN Reason: Consult order Polyethylene Glycol (Polyethylene Glycol 3350 17 Gm Powd.Pack) 17 gm PO DAILY PRN PRN Reason: Constipation Potassium Chloride (Potassium Chloride Er 10 Meq Tablet.Er) 20 meq PO DAILY COUNTS INCLUDE 234 BEDS AT THE [facility] Last Admin: 03/20/25 07:54 Dose: 20 meq Documented By: YARON Risperidone (Risperidone 1 Mg Tablet) 1 mg PO BEDTIME COUNTS INCLUDE 234 BEDS AT THE [facility] Last Admin: 03/20/25 20:48 Dose: 1 mg Documented By: JOSE Senna (Sennosides 8.6 Mg Tablet) 17.2 mg PO BEDTIME RACHEL Last Admin: 03/20/25 20:48 Dose: 17.2 mg Documented By: JOSE Simethicone (Simethicone 80 Mg Tab.Chew) 80 mg PO BID PRN PRN Reason: Abdominal bloating Sodium Chloride (0.9 % Sodium Chloride Flush 3 Ml Syringe) 3 ml IVFLUSH QSHIFT COUNTS INCLUDE 234 BEDS AT THE [facility] Last Admin: 03/21/25 00:23 Dose: 3 ml Documented By: JOSE <Chyna Ibarra PA-C - Last Filed: 03/21/25 07:39> Labs CBC & Chem 7: 03/19/25 05:38 03/21/25 05:47 <Chyna Ibarra PA-C - Last Filed: 03/21/25 07:39> Labs: Laboratory Results - last 24 hr 03/20/25 03/20/25 03/20/25 08:19 13:29 18:22 Anion Gap 19 Estim Creat Clear Calc 176.8 Estimated GFR > 60 Random Glucose 134 H Calcium 9.0 Phosphorus 2.1 L Magnesium 2.1 Total Bilirubin 0.7 AST 33 ALT 8 Alkaline Phosphatase 64 B-Natriuretic Peptide 89 Total Protein 5.9 L Albumin 3.1 L Vancomycin Trough 17.5 03/21/25 05:47 Anion Gap 12 Estim Creat Clear Calc 176.8 Estimated GFR > 60 Random Glucose 187 H Calcium 7.9 L D Phosphorus 1.5 L Magnesium 1.9 Total Bilirubin 0.6 AST 19 ALT 7 Alkaline Phosphatase 58 B-Natriuretic Peptide Total Protein 5.2 L Albumin 2.9 L Vancomycin Trough <Chyna Ibarra PA-C - Last Filed: 03/21/25 07:39> Procedures Date of Service Date of Service: 03/21/25 <Chyna Ibarra PA-C - Last Filed: 03/21/25 07:39> 03/21/25 <Shay Haro MD - Last Filed: 03/21/25 08:14> Progress Note: A&P Assessment and plan (1) Colon cancer metastasized to liver: Status: Chronic <Chyna Ibarra PA-C - Last Filed: 03/21/25 07:39> (2) Abdominal distention: Status: Acute <Chyna Ibarra PA-C - Last Filed: 03/21/25 07:39> (3) Colitis: Status: Acute <PAULINE Martell Last Filed: 03/21/25 07:39> Assessment and Plan: Stent placed yesterday by Dr. Gregg for rectal mass Abdomen soft, benign, nondistended NG tube was placed yesterday by anesthesia Appears to have had high output overnight Monitor output today and if this is low, okay to DC the NG tube and restart diet Patient currently requiring O2 supplementation and appears short of breath Rest of care as per the hospitalist We will continue to follow up Seen and examined independently <Shay Haro MD - Last Filed: 03/21/25 08:14> Assessment and Plan: Underwent sigmoidoscopy with stent placement yesterday. NGT placed yesterday prior to procedure due to distended stomach and bowel loops seen on CXR yesterday. He has had a significant amount of output since yesterday but also has been taking in a lot of chips. Abd overall benign and soft. Cont NGT for now until output decreases, some evidence of GI function. Encouraged OOB to promote GI function. <Chyna Ibarra PA-C - Last Filed: 03/21/25 07:39> Time Spent With Patient Time: Total time managing care of this patient today ____ minutes. <Chyna Ibarra PA-C - Last Filed: 03/21/25 07:39> Quality Stroke Does the patient have a stroke diagnosis?: No <Chyna Ibarra PA-C - Last Filed: 03/21/25 07:39> Reason for No Anti-thrombotic by Day Two: N/A - Med Ordered <Chyna Ibarra PA-C - Last Filed: 03/21/25 07:39> VTE Prior VTE?: No <Chyna Ibarra PA-C - Last Filed: 03/21/25 07:39> VTE Risk Level:: Medical - moderate - high <Chyna Ibarra PA-C - Last Filed: 03/21/25 07:39> VTE Device Contraindication: N/A - Device Ordered <Chyna Ibarra PA-C - Last Filed: 03/21/25 07:39> VTE Drug Contraindication: N/A - Med Ordered <Chyna Ibarra PA-C - Last Filed: 03/21/25 07:39>
[2025-03-21 07:39] VITALS: BP 153/80; PULSE 114; RESP 18; TEMP 36.2; O2SAT 91
[2025-03-21] MEDS: Potassium Phosphate/NS 15 MMOL/250 ML PLAST..BAG 62.5 MMOL IV ×4 (08:28→19:56)
--- NOTE | 2025-03-21 08:50 | HO.POSTANES ---
Post Anesthesia Evaluation Post Anesthesia Evaluation Date of Service: 03/21/25 Vital Signs: Vital Signs Temp Pulse Resp BP Pulse Ox O2 Del Method O2 Flow Rate 03/21/25 07:39 97.1 F 114 H 18 153/80 H 91 L Nasal Cannula 2 03/21/25 04:00 97.6 F 76 18 147/94 H 92 Room Air Anesthesia: General Mental Status: Awake Pain Control: Satisfactory Nausea/Vomiting: None Hydration: Adequate Anesthesia-Related Issues: No Anes. Related Issues
[2025-03-21 08:53] LABS: Procalcitonin 0.47 ng/mL
--- NOTE | 2025-03-21 10:30 | MHC.CLN ---
F/U PT REMAINS NPO REVIEWED LABS-NOTED LOW K+ AND PHOS DISCUSSED WITH PHARMACY RECOMMEND INCREASE PPN TO 80ML/HR TO PROVIDE 979KCALS, 192G DEXTROSE, 82G PROTEIN REPLETE LYTES NEEDED
--- NOTE | 2025-03-21 12:31 | HO.PM.IMPN ---
Subjective Subjective Date of Service: 03/21/25 Interval History: POD1 sigmoidoscopy with rectal stent placement, NGT also placed abd less distended, copious bilious drainage some dyspnea, cough no fever Review of Systems Review of Systems: Yes all other systems are reviewed and are negative Physical Exam Vital Signs: Vital Signs: Last Vital Signs Temp 97.1 F 03/21/25 07:39 Pulse 114 H 03/21/25 07:39 Resp 18 03/21/25 07:39 BP 153/80 H 03/21/25 07:39 Pulse Ox 91 L 03/21/25 07:39 O2 Del Method Nasal Cannula 03/21/25 07:39 O2 Flow Rate 2 03/21/25 07:39 BMI result Body Mass Index 27.1 Gen: in no acute distress HEENT: sclera anicteric, moist mucus membranes Neck: supple, port R chest wall Lungs: diminished bilaterally Heart: regular rate and rhythm, no murmurs Abd: slightly distended, no bowel sounds, NGT to suction with bilious drainage Ext: no edema Skin: warm/well-perfused Neuro: alert and oriented x3, no focal findings Psych: appropriate affect Objective Data Active Medications Acetaminophen (Acetaminophen 325 Mg Tablet) 650 mg PO Q6H PRN PRN Reason: Pain, Mild 1-3,fever,headache Albuterol/Ipratropium (Albuterol/Iprat 2.5/0.5mg 3 Ml Ampul.Neb) 3 ml INHALE Q4H PRN PRN Reason: Shortness of Breath/Wheezing Amlodipine Besylate (Amlodipine Besylate 5 Mg Tablet) 5 mg PO BEDTIME [facility]; Protocol Last Admin: 03/20/25 20:48 Dose: 5 mg Documented By: JOSE Apixaban (Apixaban 5 Mg Tablet) 5 mg PO BID@0500,1700 [facility] Last Admin: 03/19/25 15:59 Dose: 5 mg Documented By: YARON Calcium Carbonate (Calcium Carbonate 750 Mg Tab.Chew) 750 mg PO Q4H PRN PRN Reason: Heartburn Clonazepam (Clonazepam 1 Mg Tablet) 1 mg PO BEDTIME PRN PRN Reason: Anxiety Last Admin: 03/20/25 02:16 Dose: 1 mg Documented By: ARELY Dexamethasone (Dexamethasone 4 Mg Tablet) 4 mg PO WETH [facility] Last Admin: 03/21/25 08:34 Dose: 4 mg Documented By: KARTHIKEYAN Diazepam (Diazepam 10 Mg/2 Ml Cartridge) 10 mg IVPUSH Q6H PRN PRN Reason: Anxiety Last Admin: 03/20/25 06:03 Dose: 10 mg Documented By: ARELY Diphenoxylate HCl/Atropine (Diphenoxylate/Atrop 2.5/0.025 Tablet) 1 tab PO DAILY PRN PRN Reason: Diarrhea Hydroxyzine HCl (Hydroxyzine Hcl 25 Mg Tablet) 25 mg PO TID PRN PRN Reason: Itching Cefepime HCl (Maxipime) 2 gm in 50 mls @ 100 mls/hr IV Q8H [facility] Last Infusion: 03/21/25 08:31 Dose: Infused Documented By: KARTHIKEYAN Nutrition (Parenteral) (Parenteral Nutrition) 1,440 mls @ 60 mls/hr IV .Q24H RACHEL; Protocol Stop: 03/21/25 20:59 Last Admin: 03/20/25 21:12 Dose: 60 mls/hr Documented By: JOSE Vancomycin HCl 1,000 mg/ (Sodium Chloride) 270 mls @ 270 mls/hr IV Q8H RACHEL Last Admin: 03/21/25 11:59 Dose: 270 mls/hr Documented By: KARTHIKEYAN Potassium Phosphate (Kphos) 15 mmol in 250 mls @ 62.5 mls/hr IV Q4H RACHEL Stop: 03/22/25 00:14 Last Admin: 03/21/25 12:07 Dose: 62.5 mls/hr Documented By: KARTHIKEYAN Nutrition (Parenteral) (Parenteral Nutrition) 1,920 mls @ 80 mls/hr IV .Q24H RACHEL; Protocol Stop: 03/22/25 20:59 Lamotrigine (Lamotrigine 100 Mg Tablet) 250 mg PO DAILY RACHEL Last Admin: 03/21/25 07:31 Dose: 250 mg Documented By: KARTHIKEYAN Magnesium Hydroxide (Milk Of Magnesia 30 Ml Oral.Susp) 30 ml PO DAILY PRN PRN Reason: Constipation Magnesium Oxide (Magnesium Oxide 400 Mg Tablet) 400 mg PO DAILY RACHEL Last Admin: 03/21/25 07:31 Dose: 400 mg Documented By: KARTHIKEYAN Melatonin (Melatonin 3 Mg Tablet) 6 mg PO BEDTIME PRN PRN Reason: Insomnia Methylphenidate HCl (Methylphenidate Hcl 10 Mg Tablet) 10 mg PO DAILY [facility] Last Admin: 03/21/25 07:31 Dose: 10 mg Documented By: KARTHIKEYAN Metoprolol Succinate (Metoprolol Succinate Er 50 Mg Tab.Er.24h) 50 mg PO DAILY [facility]; Protocol Last Admin: 03/21/25 07:31 Dose: 50 mg Documented By: KARTHIKEYAN Morphine Sulfate (Morphine Sulfate 4 Mg/Ml Cartridge) 4 mg IVPUSH Q3H PRN; Protocol PRN Reason: Pain, Moderate(Pain Scale 4-6) Last Admin: 03/21/25 12:07 Dose: 4 mg Documented By: KARTHIKEYAN Naloxone HCl (Naloxone Hcl 0.4 Mg/Ml Vial) 0.04 mg IVPUSH Q5M PRN PRN Reason: Excessive sedation or RR < 8 Naloxone HCl (Naloxone Hcl 0.4 Mg/Ml Vial) 0.04 mg IVPUSH Q5M PRN PRN Reason: Excessive sedation or RR < 8 Omeprazole (Omeprazole 20 Mg Capsule.Dr) 20 mg PO BEDTIME [facility] Last Admin: 03/20/25 20:48 Dose: 20 mg Documented By: JOSE Ondansetron HCl (Ondansetron Hcl 4 Mg/2 Ml Vial) 4 mg IVPUSH Q8H PRN PRN Reason: Nausea and Vomiting Pharmacy Consult (Consult Rx Vancomycin Dosing) 1 each MISCELLANE DAILY PRN PRN Reason: Consult order Pharmacy Consult (Consult Rx Parenteral Nutrition Ordering) 1 each MISCELLANE DAILY PRN PRN Reason: Consult order Polyethylene Glycol (Polyethylene Glycol 3350 17 Gm Powd.Pack) 17 gm PO DAILY PRN PRN Reason: Constipation Potassium Chloride (Potassium Chloride Er 10 Meq Tablet.Er) 20 meq PO DAILY [facility] Last Admin: 03/21/25 07:31 Dose: 20 meq Documented By: KARTHIKEYAN Risperidone (Risperidone 1 Mg Tablet) 1 mg PO BEDTIME RACHEL Last Admin: 03/20/25 20:48 Dose: 1 mg Documented By: JOSE Senna (Sennosides 8.6 Mg Tablet) 17.2 mg PO BEDTIME [facility] Last Admin: 03/20/25 20:48 Dose: 17.2 mg Documented By: JOSE Simethicone (Simethicone 80 Mg Tab.Chew) 80 mg PO BID PRN PRN Reason: Abdominal bloating Sodium Chloride (0.9 % Sodium Chloride Flush 3 Ml Syringe) 3 ml IVFLUSH QSHIFT [facility] Last Admin: 03/21/25 07:37 Dose: 3 ml Documented By: KARTHIKEYAN Labs 03/19/25 05:38 03/21/25 05:47 Labs: Laboratory Results - last 24 hr 03/20/25 03/20/25 03/21/25 13:29 18:22 05:47 Anion Gap 12 Estim Creat Clear Calc 176.8 Estimated GFR > 60 Random Glucose 187 H Calcium 7.9 L D Phosphorus 1.5 L Magnesium 1.9 Total Bilirubin 0.6 AST 19 ALT 7 Alkaline Phosphatase 58 C-Reactive Protein 5.36 H B-Natriuretic Peptide 89 Total Protein 5.2 L Albumin 2.9 L Procalcitonin 0.47 Vancomycin Trough 17.5 Assessment and Plan (1) Colon cancer metastasized to liver: Status: Chronic Plan d6, 60yo M with 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, PE on apixaban, HTN, GERD, anxiety sent in from Oncology Clinic with concern for bowel obstruction in setting of neutropenia; found to have colitis/rectal obstruction/pneumonia rectal mass distal colon obstruction - POD1 sigmoidoscopy + stenting by GI Dr Gregg - Gen Surg following, NGT until bowel function returns colitis pneumonia - stool studies + C diff negative, continue vancomycin + cefepime 03/16-, blood cultures negative, trend PCT hypoK hypoPO4 - replete IV, recheck levels tomorrow neutropenia - resolved HTN - amlodipine, metoprolol succinate metastatic rectosigmoid CA - followed by Dr Case at [facility] mood disorder - clonazepam, lamotrigine, rispreidone ADHD - methlyphenidate hx PE - apixaban; OK to resume today per GI dispo - PT eval when NGT out In my clinical judgment, the patient requires continued inpatient hospitalization for the following reasons: colon obstruction Total time managing care of this patient today: 45 minutes. Quality Stroke Does the patient have a stroke diagnosis?: No Reason for No Anti-thrombotic by Day Two: N/A - Med Ordered VTE Prior VTE?: No VTE Risk Level:: Medical - moderate - high VTE Device Contraindication: N/A - Device Ordered VTE Drug Contraindication: N/A - Med Ordered
--- NOTE | 2025-03-21 13:10 | MHC.CM.PN ---
EMR REVIEWED AND PER MD ROUNDS , PT IS NOT MEDICALLY CLEARED FOR DC (N/G TUBE WITH COPIOUS DRAINAGE, TPN, DYSPNEA) CM WILL CONTINUE TO FOLLOW FOR DC PLAN.
--- NOTE | 2025-03-21 13:13 | HO.WOUND ---
Wound Consult: Initial 60yr old?Male admitted to [facility] on 03/16/25 - See progress notes and H&P for detailed history.? Wound consult placed for Buttock.? Patient agreeable to assessment and photo documentation.? Patient denies knowledge of prior skin injury to buttock, evidence sugests prior full thickness injury to sites see notes and photo below. Currently intact tissue interventions in place including IVANA pump. Buttock Etiology: ??Prior Full thickness pressure injury Present on Admission Wound Bed: resurfaced intact tissue Drainage / Odor: None Edges: ? well defined and attached Kaya wound: Intact pink Hypo and hyper pigmentation ? No Induration, Fluctuance or Warmth noted Pain: denies Goals of Treatment: ? Off load and protect from moisture and friction Recommendations: 1. Turn and Reposition every 2 hours and as needed for patient comfort.? Use pillows or wedges to support off loading positions. 2. Off Load all bony prominences with use of pillows and heel boots if needed.? Apply Preventative foams where needed. ? 3. Monitor for incontinence and moisture control, use barrier creams when needed for prevention and treatment. 4. Provide adequate and supplemental nutrition.? 5. Continue low air loss mattress. 6. When applicable maintain blood glucose levels per Providers order. Sacrum and Buttock - Off Load Pressure with Q2 hr turns and use of pillows - Cleanse with PH balance spray or wipes, pat dry. ?Apply thin layer of Triad to wound bed - only pat and dab no scrub and rub when soiling occurs. Reapply thin layer PRN after each episode of incontinence. Re-consult wound care Nurse for wound deterioration or wound changes.
[2025-03-21 15:25] VITALS: BP 137/80; PULSE 103; RESP 20; TEMP 36.4; O2SAT 94
--- NOTE | 2025-03-21 16:43 | P.PNGI_ITS ---
Subjective Subjective Date of Service: 03/21/25 Interval History: felling much better today after NG suction and stent placement passing small amounts of gas stomach less distended still some output from NGT Critical Care Time (minutes): 0 Physical Exam 2 Exam: Exam: EXAM: GENERAL: The patient is well developed and nontoxic. VITAL SIGNS:see workflow HEENT: Nonicteric sclerae, PERRLA, EOMI. Oropharynx clear. Moist mucous membranes. Conjunctivae appear well perfused. No thyroid mass. CHEST: Chest wall is nontender. HEART: Regular rate and rhythm without murmurs. LUNGS: Clear to auscultation bilaterally. ABDOMEN: Soft, reduced bowel sounds, nontender, no organomegaly.no flank tenderness SKIN: No rash, no excessive bruising, petechiae, or purpura. NEUROLOGIC: Cranial nerves II-XII intact without motor/sensory deficit. Psych: normal affect Vital Signs: Vital Signs: Last Vital Signs Temp 97.6 F 03/21/25 15:25 Pulse 103 H 03/21/25 15:25 Resp 20 03/21/25 15:25 BP 137/80 03/21/25 15:25 Pulse Ox 94 03/21/25 15:25 O2 Del Method Nasal Cannula 03/21/25 15:25 O2 Flow Rate 2 03/21/25 15:25 BMI result Body Mass Index 27.1 Objective Data Labs 03/19/25 05:38 03/21/25 05:47 Labs: Laboratory Results - last 24 hr 03/20/25 03/21/25 18:22 05:47 Sodium 136 Potassium 2.6 L* D Chloride 102 Carbon Dioxide 25 Anion Gap 12 BUN 14 Creatinine 0.51 Estim Creat Clear Calc 176.8 Estimated GFR > 60 Random Glucose 187 H Calcium 7.9 L D Phosphorus 1.5 L Magnesium 1.9 Total Bilirubin 0.6 AST 19 ALT 7 Alkaline Phosphatase 58 C-Reactive Protein 5.36 H Total Protein 5.2 L Albumin 2.9 L Procalcitonin 0.47 Vancomycin Trough 17.5 Microbiology Microbiology Results: Microbiology 03/16/25 15:58 Blood - Venous Blood Culture - Preliminary No growth after 48 hours. 03/16/25 15:58 Blood - Venous Blood Culture - Preliminary No growth after 48 hours. Procedures Date of Service Date of Service: 03/21/25 Progress Note: A&P Assessment and plan (1) Abdominal distention: Status: Acute Assessment and Plan: 1/ Ileus from mass and low K, recent pneumonia, improving slowly plan: 1/ cont with PPI 2/ maintain Mg and K at close to higher ends of ranges. Time Spent With Patient Time: Total time managing care of this patient today ____ minutes. Quality Stroke Does the patient have a stroke diagnosis?: No Reason for No Anti-thrombotic by Day Two: N/A - Med Ordered VTE Prior VTE?: No VTE Risk Level:: Medical - moderate - high VTE Device Contraindication: N/A - Device Ordered VTE Drug Contraindication: N/A - Med Ordered
[2025-03-21] MEDS: Parenteral Nutrition 1,920 ML 80 ML IV (18:59)
[2025-03-21 19:40] VITALS: BP 165/95; PULSE 108; RESP 20; TEMP 36.9; O2SAT 92
[2025-03-22 03:06] VITALS: BP 166/84; PULSE 105; RESP 16; TEMP 36.2; O2SAT 93
[2025-03-22 06:00] VITALS: BMI 27.5
[2025-03-22 06:53] LABS: Alanine Aminotransferase 8 U/L (0-40); Albumin Level 3.0 g/dL (3.5-5.0); Alkaline Phosphatase 60 U/L (39-117); Anion Gap 11 (12-20); Aspartate Amino Transferase 23 U/L (5-37); Blood Urea Nitrogen 9 mg/dL (9-16); Calcium 8.0 mg/dL (8.4-10.2); Carbon Dioxide 28 mmol/L (22-29); Chloride 101 mmol/L (96-108); Creatinine Clr Calc Pharmacy 200.4; Estimated Glomerular Filt Rate > 60; Magnesium 1.8 mg/dL (1.6-2.6); Potassium 3.1 mmol/L (3.3-5.1); Sodium 137 mmol/L (135-145); Total Protein 5.3 g/dL (6.5-8.0)
[2025-03-22 07:09] LABS: Hematocrit 38.0 % (42.0-52.0); Hemoglobin 13.0 g/dl (14.0-18.0); Mean Corpuscular HGB Conc 34.2 g/dl (31.0-36.0); Mean Corpuscular Hemoglobin 28.7 pg (27.0-33.0); Mean Corpuscular Volume 83.9 fL (80.0-98.0); NRBC Abs Auto 0.070 X10*3/uL (0.0-0.012); NRBC Pct Auto 0.7 /100WBC (0.0-0.2); Platelet Count 208 X10*3/uL (160-400); Red Blood Count 4.53 X10*6/uL (4.60-5.80); White Blood Count 10.2 X10*3/uL (4.8-10.8)
[2025-03-22 07:46] VITALS: BP 127/86; PULSE 98; RESP 20; TEMP 36.8; O2SAT 93
--- NOTE | 2025-03-22 07:52 | P.PNGS_ITS ---
Subjective Subjective Date of Service: 03/22/25 <Chyna Ibarra PA-C - Last Filed: 03/22/25 07:55> 03/22/25 <Shay Haro MD - Last Filed: 03/22/25 08:30> Interval history: Feels overall better, less bloated. Passing large amounts of flatus now. Denies nausea. Has not been OOB due to feeling weak. <Chyna Ibarra PA-C - Last Filed: 03/22/25 07:55> Physical Exam 2 Vital Signs: Vital Signs: Last Vital Signs Temp 98.3 F 03/22/25 07:46 Pulse 98 03/22/25 07:46 Resp 20 03/22/25 07:46 BP 127/86 03/22/25 07:46 Pulse Ox 93 03/22/25 07:46 O2 Del Method Nasal Cannula 03/22/25 07:46 O2 Flow Rate 2 03/22/25 07:46 BMI result Body Mass Index 27.5 <Chyna Ibarra PA-C - Last Filed: 03/22/25 07:55> Const: General: comfortable, no acute distress and alert <Chyna Ibarra PA-C - Last Filed: 03/22/25 07:55> Orientation/consciousness: patient oriented x3 <PAULINE Martell Last Filed: 03/22/25 07:55> Resp: Other: some increased work of breathing <Chyna Ibarra PA-C - Last Filed: 03/22/25 07:55> Effort & Inspection: able to speak in complete sentences <Chyna Ibarra PA-C - Last Filed: 03/22/25 07:55> GI: Other: distended but improved, soft <Chyna Ibarra PA-C - Last Filed: 03/22/25 07:55> Palpation (GI): nontender and no guarding <PAULINE Martell Last Filed: 03/22/25 07:55> Skin: General skin exam: no rashes or lesions noted <PAULINE Martell Last Filed: 03/22/25 07:55> Neuro: General: patient oriented x3 <Chyna Ibarra PA-C - Last Filed: 03/22/25 07:55> Objective Data Active Medications Acetaminophen (Acetaminophen 325 Mg Tablet) 650 mg PO Q6H PRN PRN Reason: Pain, Mild 1-3,fever,headache Albuterol/Ipratropium (Albuterol/Iprat 2.5/0.5mg 3 Ml Ampul.Neb) 3 ml INHALE Q4H PRN PRN Reason: Shortness of Breath/Wheezing Amlodipine Besylate (Amlodipine Besylate 5 Mg Tablet) 5 mg PO BEDTIME [facility]; Protocol Last Admin: 03/21/25 20:05 Dose: 5 mg Documented By: DONNA Apixaban (Apixaban 5 Mg Tablet) 5 mg PO BID@0500,1700 [facility] Last Admin: 03/22/25 03:24 Dose: 5 mg Documented By: DONNA Calcium Carbonate (Calcium Carbonate 750 Mg Tab.Chew) 750 mg PO Q4H PRN PRN Reason: Heartburn Clonazepam (Clonazepam 1 Mg Tablet) 1 mg PO BEDTIME PRN PRN Reason: Anxiety Last Admin: 03/20/25 02:16 Dose: 1 mg Documented By: ARELY Dexamethasone (Dexamethasone 4 Mg Tablet) 4 mg PO WETH [facility] Last Admin: 03/21/25 08:34 Dose: 4 mg Documented By: KARTHIKEYAN Diazepam (Diazepam 10 Mg/2 Ml Cartridge) 10 mg IVPUSH Q6H PRN PRN Reason: Anxiety Last Admin: 03/20/25 06:03 Dose: 10 mg Documented By: ARELY Hydroxyzine HCl (Hydroxyzine Hcl 25 Mg Tablet) 25 mg PO TID PRN PRN Reason: Itching Cefepime HCl (Maxipime) 2 gm in 50 mls @ 100 mls/hr IV Q8H [facility] Last Infusion: 03/22/25 00:33 Dose: Infused Documented By: DONNA Nutrition (Parenteral) (Parenteral Nutrition) 1,920 mls @ 80 mls/hr IV .Q24H [facility]; Protocol Stop: 03/22/25 20:59 Last Admin: 03/21/25 18:59 Dose: 80 mls/hr Documented By: DONNA Vancomycin HCl 1,250 mg/ (Sodium Chloride) 250 mls @ 166.667 mls/hr IV Q8H [facility] Last Infusion: 03/22/25 05:11 Dose: Infused Documented By: DONNA Lamotrigine (Lamotrigine 100 Mg Tablet) 250 mg PO DAILY [facility] Last Admin: 03/21/25 07:31 Dose: 250 mg Documented By: KARTHIKEYAN Magnesium Hydroxide (Milk Of Magnesia 30 Ml Oral.Susp) 30 ml PO DAILY PRN PRN Reason: Constipation Magnesium Oxide (Magnesium Oxide 400 Mg Tablet) 400 mg PO DAILY [facility] Last Admin: 03/21/25 07:31 Dose: 400 mg Documented By: KARTHIKEYAN Melatonin (Melatonin 3 Mg Tablet) 6 mg PO BEDTIME PRN PRN Reason: Insomnia Methylphenidate HCl (Methylphenidate Hcl 10 Mg Tablet) 10 mg PO DAILY [facility] Last Admin: 03/21/25 07:31 Dose: 10 mg Documented By: KARTHIKEYAN Metoprolol Succinate (Metoprolol Succinate Er 50 Mg Tab.Er.24h) 50 mg PO DAILY [facility]; Protocol Last Admin: 03/21/25 07:31 Dose: 50 mg Documented By: KARTHIKEYAN Morphine Sulfate (Morphine Sulfate 4 Mg/Ml Cartridge) 4 mg IVPUSH Q3H PRN; Protocol PRN Reason: Pain, Moderate(Pain Scale 4-6) Last Admin: 03/22/25 03:24 Dose: 4 mg Documented By: DONNA Naloxone HCl (Naloxone Hcl 0.4 Mg/Ml Vial) 0.04 mg IVPUSH Q5M PRN PRN Reason: Excessive sedation or RR < 8 Naloxone HCl (Naloxone Hcl 0.4 Mg/Ml Vial) 0.04 mg IVPUSH Q5M PRN PRN Reason: Excessive sedation or RR < 8 Omeprazole (Omeprazole 20 Mg Capsule.Dr) 20 mg PO BEDTIME [facility] Last Admin: 03/21/25 20:05 Dose: 20 mg Documented By: DONNA Ondansetron HCl (Ondansetron Hcl 4 Mg/2 Ml Vial) 4 mg IVPUSH Q8H PRN PRN Reason: Nausea and Vomiting Pharmacy Consult (Consult Rx Vancomycin Dosing) 1 each MISCELLANE DAILY PRN PRN Reason: Consult order Pharmacy Consult (Consult Rx Parenteral Nutrition Ordering) 1 each MISCELLANE DAILY PRN PRN Reason: Consult order Polyethylene Glycol (Polyethylene Glycol 3350 17 Gm Powd.Pack) 17 gm PO DAILY PRN PRN Reason: Constipation Potassium Chloride (Potassium Chloride Er 10 Meq Tablet.Er) 20 meq PO DAILY [facility] Last Admin: 03/21/25 07:31 Dose: 20 meq Documented By: KARTHIKEYAN Risperidone (Risperidone 1 Mg Tablet) 1 mg PO BEDTIME [facility] Last Admin: 03/21/25 20:05 Dose: 1 mg Documented By: DONNA Senna (Sennosides 8.6 Mg Tablet) 17.2 mg PO BEDTIME [facility] Last Admin: 03/21/25 20:04 Dose: 17.2 mg Documented By: DONNA Simethicone (Simethicone 80 Mg Tab.Chew) 80 mg PO BID PRN PRN Reason: Abdominal bloating Sodium Chloride (0.9 % Sodium Chloride Flush 3 Ml Syringe) 3 ml IVFLUSH QSHIFT [facility] Last Admin: 03/21/25 20:05 Dose: 3 ml Documented By: DONNA <Chyna Ibarra PA-C - Last Filed: 03/22/25 07:55> Labs CBC & Chem 7: 03/22/25 06:27 03/22/25 06:27 <Chyna Ibarra PA-C - Last Filed: 03/22/25 07:55> Labs: Laboratory Results - last 24 hr 03/21/25 03/21/25 03/22/25 05:47 18:30 06:27 MCV 83.9 MCH 28.7 MCHC 34.2 RDW 15.2 Plt Count 208 MPV 8.6 L Absolute Nucleated RBC 0.070 H Nucleated RBC % (auto) 0.7 H Anion Gap 11 L Estim Creat Clear Calc 200.4 Estimated GFR > 60 Random Glucose 173 H Calcium 8.0 L Phosphorus 1.7 L Magnesium 1.8 Total Bilirubin 0.4 AST 23 ALT 8 Alkaline Phosphatase 60 C-Reactive Protein 5.36 H Total Protein 5.3 L Albumin 3.0 L Procalcitonin 0.47 Random Vancomycin 12.1 L <Chyna Ibarra PA-C - Last Filed: 03/22/25 07:55> Microbiology Microbiology Results: Microbiology 03/16/25 15:58 Blood Culture - Final Blood - Venous No growth after 5 days. 03/16/25 15:58 Blood Culture - Final Blood - Venous No growth after 5 days. <Chyna Ibarra PA-C - Last Filed: 03/22/25 07:55> Procedures Date of Service Date of Service: 03/22/25 <Chyna Ibarra PA-C - Last Filed: 03/22/25 07:55> 03/22/25 <Shay Haro MD - Last Filed: 03/22/25 08:30> Progress Note: A&P Assessment and plan (1) Abdominal distention: Status: Acute <Chyna Ibarra PA-C - Last Filed: 03/22/25 07:55> Assessment and Plan: Says he feels more comfortable States he is less bloated Passing flatus Abdomen is soft, benign, much less distended Okay to clamp NG tube and check residuals after 4 hours we will re-evaluate later Looks much better overall Seen and examined independently <Shay Haro MD - Last Filed: 03/22/25 08:30> Assessment and Plan: Underwent sigmoidoscopy with stent placement 03/20/25. NGT placed prior to procedure due to distended stomach and bowel loops seen on CXR. NGT continues with moderate output but also taking in ice chips, now passing more significant flatus and abd less distended. Will therefore clamp NGT, check residual in 4 hrs. Unclamp sooner if develops worsening abd pain, distention, nausea/vomiting. Encouraged OOB to promote GI function. <Chyna Ibarra PA-C - Last Filed: 03/22/25 07:55> Time Spent With Patient Time: Total time managing care of this patient today ____ minutes. <Chyna Ibarra PA-C - Last Filed: 03/22/25 07:55> Quality Stroke Does the patient have a stroke diagnosis?: No <Chyna Ibarra PA-C - Last Filed: 03/22/25 07:55> Reason for No Anti-thrombotic by Day Two: N/A - Med Ordered <Chyna Ibarra PA-C - Last Filed: 03/22/25 07:55> VTE Prior VTE?: No <PAULINE Martell Last Filed: 03/22/25 07:55> VTE Risk Level:: Medical - moderate - high <Chyna Ibarra PA-C - Last Filed: 03/22/25 07:55> VTE Device Contraindication: N/A - Device Ordered <PAULINE Martell Last Filed: 03/22/25 07:55> VTE Drug Contraindication: N/A - Med Ordered <Chyna Ibarra PA-C - Last Filed: 03/22/25 07:55>
[2025-03-22] MEDS: cefEPime HCl/D5W 2 GM/50 ML PIGGYBACK IV ×3 (08:54→23:14)
[2025-03-22] MEDS: Metoprolol Succinate ER 50 MG TAB.ER.24H PO (08:55)
[2025-03-22] MEDS: Potassium Chloride ER 10 MEQ TABLET.ER 20 MEQ PO (08:55)
[2025-03-22] MEDS: 0.9 % Sodium Chloride Flush 3 ML SYRINGE IVFLUSH ×3 (08:56→19:31)
--- NOTE | 2025-03-22 10:48 | MHC.CLN ---
F/U PT REMAINS NPO REVIEWED LABS-NOTED LOW K+ AND PHOS DISCUSSED WITH PHARMACY RECOMMEND INCREASE PPN TO 100ML/HR TO PROVIDE 1224KCALS, 240G DEXTROSE, 102G PROTEIN CHECK TRIGS REPLETE LYTES NEEDED
--- NOTE | 2025-03-22 11:31 | P.PNIM_ITS ---
Subjective Subjective Date of Service: 03/22/25 Interval History: passing gas, abd distension resolved, no nausea, no fever some cough Review of Systems Review of Systems: Yes all other systems are reviewed and are negative Physical Exam 2 Vital Signs: Vital Signs: Last Vital Signs Temp 98.3 F 03/22/25 07:46 Pulse 98 03/22/25 07:46 Resp 20 03/22/25 07:46 BP 127/86 03/22/25 07:46 Pulse Ox 93 03/22/25 07:46 O2 Del Method Nasal Cannula 03/22/25 07:46 O2 Flow Rate 2 03/22/25 07:46 BMI result Body Mass Index 27.5 Gen: in no acute distress HEENT: sclera anicteric, moist mucus membranes Neck: supple, port R chest wall Lungs: diminished bilaterally Heart: regular rate and rhythm, no murmurs Abd: soft, non-tender, active bowel sounds, NGT clamped Ext: no edema Skin: warm/well-perfused Neuro: alert and oriented x3, no focal findings Psych: appropriate affect Objective Data Active Medications Acetaminophen (Acetaminophen 325 Mg Tablet) 650 mg PO Q6H PRN PRN Reason: Pain, Mild 1-3,fever,headache Albuterol/Ipratropium (Albuterol/Iprat 2.5/0.5mg 3 Ml Ampul.Neb) 3 ml INHALE Q4H PRN PRN Reason: Shortness of Breath/Wheezing Amlodipine Besylate (Amlodipine Besylate 5 Mg Tablet) 5 mg PO BEDTIME [facility]; Protocol Last Admin: 03/21/25 20:05 Dose: 5 mg Documented By: DONNA Apixaban (Apixaban 5 Mg Tablet) 5 mg PO BID@0500,1700 [facility] Last Admin: 03/22/25 03:24 Dose: 5 mg Documented By: DONNA Calcium Carbonate (Calcium Carbonate 750 Mg Tab.Chew) 750 mg PO Q4H PRN PRN Reason: Heartburn Clonazepam (Clonazepam 1 Mg Tablet) 1 mg PO BEDTIME PRN PRN Reason: Anxiety Last Admin: 03/20/25 02:16 Dose: 1 mg Documented By: ARELY Diazepam (Diazepam 10 Mg/2 Ml Cartridge) 10 mg IVPUSH Q6H PRN PRN Reason: Anxiety Last Admin: 03/20/25 06:03 Dose: 10 mg Documented By: ARELY Hydroxyzine HCl (Hydroxyzine Hcl 25 Mg Tablet) 25 mg PO TID PRN PRN Reason: Itching Cefepime HCl (Maxipime) 2 gm in 50 mls @ 100 mls/hr IV Q8H [facility] Last Infusion: 03/22/25 10:02 Dose: Infused Documented By: BETSEY Nutrition (Parenteral) (Parenteral Nutrition) 1,920 mls @ 80 mls/hr IV .Q24H [facility]; Protocol Stop: 03/22/25 20:59 Last Admin: 03/21/25 18:59 Dose: 80 mls/hr Documented By: DONNA Vancomycin HCl 1,250 mg/ (Sodium Chloride) 250 mls @ 166.667 mls/hr IV Q8H [facility] Last Infusion: 03/22/25 05:11 Dose: Infused Documented By: DONNA Potassium Phosphate (Kphos) 15 mmol in 250 mls @ 62.5 mls/hr IV ONCE ONE Stop: 03/22/25 12:07 Nutrition (Parenteral) (Parenteral Nutrition) 2,400 mls @ 100 mls/hr IV .Q24H [facility]; Protocol Stop: 03/23/25 20:59 Lamotrigine (Lamotrigine 100 Mg Tablet) 250 mg PO DAILY [facility] Last Admin: 03/22/25 08:55 Dose: 250 mg Documented By: BETSEY Magnesium Hydroxide (Milk Of Magnesia 30 Ml Oral.Susp) 30 ml PO DAILY PRN PRN Reason: Constipation Magnesium Oxide (Magnesium Oxide 400 Mg Tablet) 400 mg PO DAILY [facility] Last Admin: 03/22/25 08:55 Dose: 400 mg Documented By: BETSEY Melatonin (Melatonin 3 Mg Tablet) 6 mg PO BEDTIME PRN PRN Reason: Insomnia Methylphenidate HCl (Methylphenidate Hcl 10 Mg Tablet) 10 mg PO DAILY [facility] Last Admin: 03/22/25 08:55 Dose: 10 mg Documented By: BETSEY Metoprolol Succinate (Metoprolol Succinate Er 50 Mg Tab.Er.24h) 50 mg PO DAILY [facility]; Protocol Last Admin: 03/22/25 08:55 Dose: 50 mg Documented By: BETSEY Morphine Sulfate (Morphine Sulfate 4 Mg/Ml Cartridge) 4 mg IVPUSH Q3H PRN; Protocol PRN Reason: Pain, Moderate(Pain Scale 4-6) Last Admin: 03/22/25 09:13 Dose: 4 mg Documented By: BETSEY Naloxone HCl (Naloxone Hcl 0.4 Mg/Ml Vial) 0.04 mg IVPUSH Q5M PRN PRN Reason: Excessive sedation or RR < 8 Naloxone HCl (Naloxone Hcl 0.4 Mg/Ml Vial) 0.04 mg IVPUSH Q5M PRN PRN Reason: Excessive sedation or RR < 8 Non-Formulary Medication (Methylphenidate Hcl Extended R) 54 mg PO DAILY [facility] Omeprazole (Omeprazole 20 Mg Capsule.Dr) 20 mg PO BEDTIME [facility] Last Admin: 03/21/25 20:05 Dose: 20 mg Documented By: DONNA Ondansetron HCl (Ondansetron Hcl 4 Mg/2 Ml Vial) 4 mg IVPUSH Q8H PRN PRN Reason: Nausea and Vomiting Pharmacy Consult (Consult Rx Vancomycin Dosing) 1 each MISCELLANE DAILY PRN PRN Reason: Consult order Pharmacy Consult (Consult Rx Parenteral Nutrition Ordering) 1 each MISCELLANE DAILY PRN PRN Reason: Consult order Polyethylene Glycol (Polyethylene Glycol 3350 17 Gm Powd.Pack) 17 gm PO DAILY PRN PRN Reason: Constipation Potassium Chloride (Potassium Chloride Er 10 Meq Tablet.Er) 20 meq PO DAILY [facility] Last Admin: 03/22/25 08:55 Dose: 20 meq Documented By: BETSEY Risperidone (Risperidone 1 Mg Tablet) 1 mg PO BEDTIME [facility] Last Admin: 03/21/25 20:05 Dose: 1 mg Documented By: DONNA Senna (Sennosides 8.6 Mg Tablet) 17.2 mg PO BEDTIME [facility] Last Admin: 03/21/25 20:04 Dose: 17.2 mg Documented By: DONNA Simethicone (Simethicone 80 Mg Tab.Chew) 80 mg PO BID PRN PRN Reason: Abdominal bloating Sodium Chloride (0.9 % Sodium Chloride Flush 3 Ml Syringe) 3 ml IVFLUSH QSHIFT [facility] Last Admin: 03/22/25 08:56 Dose: 3 ml Documented By: BETSEY Labs 03/22/25 06:27 03/22/25 06:27 Labs: Laboratory Results - last 24 hr 03/21/25 03/22/25 18:30 06:27 MCV 83.9 MCH 28.7 MCHC 34.2 RDW 15.2 Plt Count 208 MPV 8.6 L Absolute Nucleated RBC 0.070 H Nucleated RBC % (auto) 0.7 H Anion Gap 11 L Estim Creat Clear Calc 200.4 Estimated GFR > 60 Random Glucose 173 H Calcium 8.0 L Phosphorus 1.7 L Magnesium 1.8 Total Bilirubin 0.4 AST 23 ALT 8 Alkaline Phosphatase 60 Total Protein 5.3 L Albumin 3.0 L Random Vancomycin 12.1 L Microbiology Microbiology Results: Microbiology 03/16/25 15:58 Blood Culture - Final Blood - Venous No growth after 5 days. 03/16/25 15:58 Blood Culture - Final Blood - Venous No growth after 5 days. 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, PE on apixaban, HTN, GERD, anxiety sent in from Oncology Clinic with concern for bowel obstruction in setting of neutropenia; found to have colitis/rectal obstruction/pneumonia rectal mass distal colon obstruction - POD2 sigmoidoscopy + stenting by GI Dr Gregg - Gen Surg following, NGT clamped colitis pneumonia - stool studies + C diff negative, continue vancomycin + cefepime 03/16-03/23, blood cultures negative, trend PCT hypoK hypoPO4 - replete IV, recheck levels tomorrow neutropenia - resolved HTN - amlodipine, metoprolol succinate metastatic rectosigmoid CA - [place] [facility] [place] disorder - clonazepam, lamotrigine, risperidone ADHD - methlyphenidate hx PE - apixaban; OK to resume today per GI dispo - PT eval when NGT out In my clinical judgment, the patient requires continued inpatient hospitalization for the following reasons: colon obstruction, on TPN Total time managing care of this patient today: 45 minutes. Quality Stroke Does the patient have a stroke diagnosis?: No Reason for No Anti-thrombotic by Day Two: N/A - Med Ordered VTE Prior VTE?: No VTE Risk Level:: Medical - moderate - high VTE Device Contraindication: N/A - Device Ordered VTE Drug Contraindication: N/A - Med Ordered
[2025-03-22] MEDS: Potassium Phosphate/NS 15 MMOL/250 ML PLAST..BAG 62.5 MMOL IV (13:13)
[2025-03-22 15:38] VITALS: BP 120/79; PULSE 100; RESP 16; TEMP 36.5; O2SAT 93
--- NOTE | 2025-03-22 16:34 | P.PNGI_ITS ---
Subjective Subjective Date of Service: 03/22/25 Interval History: passing a lot more gas and stool now abdo less distended and more comfortable managing ice chips and clears NGT is out after o/p seemed to taper Critical Care Time (minutes): 0 Physical Exam 2 Exam: Exam: EXAM: GENERAL: The patient is well developed and nontoxic. VITAL SIGNS:see workflow HEENT: Nonicteric sclerae, PERRLA, EOMI. Oropharynx clear. Moist mucous membranes. Conjunctivae appear well perfused. No thyroid mass. CHEST: Chest wall is nontender. HEART: Regular rate and rhythm without murmurs. LUNGS: Clear to auscultation bilaterally. ABDOMEN: Soft, positive bowel sounds but reduced, nontender, no organomegaly.no flank tenderness SKIN: No rash, no excessive bruising, petechiae, or purpura. NEUROLOGIC: Cranial nerves II-XII intact without motor/sensory deficit. Psych: normal affect Vital Signs: Vital Signs: Last Vital Signs Temp 97.7 F 03/22/25 15:38 Pulse 100 03/22/25 15:38 Resp 16 03/22/25 15:38 BP 120/79 03/22/25 15:38 Pulse Ox 93 03/22/25 15:38 O2 Del Method Nasal Cannula 03/22/25 15:38 O2 Flow Rate 2 03/22/25 15:38 BMI result Body Mass Index 27.5 Objective Data Labs 03/22/25 06:27 03/22/25 06:27 Labs: Laboratory Results - last 24 hr 03/21/25 03/22/25 18:30 06:27 WBC 10.2 RBC 4.53 L Hgb 13.0 L Hct 38.0 L MCV 83.9 MCH 28.7 MCHC 34.2 RDW 15.2 Plt Count 208 MPV 8.6 L Absolute Nucleated RBC 0.070 H Nucleated RBC % (auto) 0.7 H Sodium 137 Potassium 3.1 L Chloride 101 Carbon Dioxide 28 Anion Gap 11 L BUN 9 Creatinine 0.45 L Estim Creat Clear Calc 200.4 Estimated GFR > 60 Random Glucose 173 H Calcium 8.0 L Phosphorus 1.7 L Magnesium 1.8 Total Bilirubin 0.4 AST 23 ALT 8 Alkaline Phosphatase 60 Total Protein 5.3 L Albumin 3.0 L Random Vancomycin 12.1 L Microbiology Microbiology Results: Microbiology 03/16/25 15:58 Blood - Venous Blood Culture - Final No growth after 5 days. 03/16/25 15:58 Blood - Venous Blood Culture - Final No growth after 5 days. Procedures Date of Service Date of Service: 03/22/25 Progress Note: A&P Assessment and plan (1) Abdominal distention: Status: Acute Plan 1/ ileus and bowel mass s/p stenting, appears to be improving, K still a little low PLAN: 1/ advance diet as tolerated 2/ max K and mag, lytes Time Spent With Patient Time: Total time managing care of this patient today ____ minutes. Quality Stroke Does the patient have a stroke diagnosis?: No Reason for No Anti-thrombotic by Day Two: N/A - Med Ordered VTE Prior VTE?: No VTE Risk Level:: Medical - moderate - high VTE Device Contraindication: N/A - Device Ordered VTE Drug Contraindication: N/A - Med Ordered
--- NOTE | 2025-03-22 18:50 | HE.PHANOTE ---
RE: VANCO DOSING Trough came back as 13 mg/L, renal function is stable. Dose is increased to 1500 mg q8h, trough is scheduled for after 2 doses on 03/23/25 @1000.
[2025-03-22] MEDS: Parenteral Nutrition 2,400 ML 100 ML IV (19:22)
[2025-03-22 20:00] VITALS: BP 129/85; PULSE 95; RESP 16; TEMP 36.7; O2SAT 92
[2025-03-23 03:08] VITALS: BP 121/82; PULSE 93; RESP 18; TEMP 36.2; O2SAT 95
[2025-03-23 06:00] VITALS: BMI 27.7
[2025-03-23 06:34] LABS: Alanine Aminotransferase 9 U/L (0-40); Albumin Level 2.9 g/dL (3.5-5.0); Alkaline Phosphatase 56 U/L (39-117); Anion Gap 11 (12-20); Aspartate Amino Transferase 23 U/L (5-37); Blood Urea Nitrogen 9 mg/dL (9-16); Calcium 8.0 mg/dL (8.4-10.2); Carbon Dioxide 27 mmol/L (22-29); Chloride 104 mmol/L (96-108); Creatinine Clr Calc Pharmacy 200.4; Estimated Glomerular Filt Rate > 60; Magnesium 1.8 mg/dL (1.6-2.6); Potassium 3.4 mmol/L (3.3-5.1); Sodium 139 mmol/L (135-145); Total Protein 5.2 g/dL (6.5-8.0); Triglycerides 106 mg/dL (<150)
[2025-03-23 06:50] LABS: Procalcitonin 0.13 ng/mL
[2025-03-23 07:27] VITALS: BP 133/86; PULSE 96; RESP 18; TEMP 36.4; O2SAT 94
[2025-03-23] MEDS: Metoprolol Succinate ER 50 MG TAB.ER.24H PO (07:43)
[2025-03-23] MEDS: cefEPime HCl/D5W 2 GM/50 ML PIGGYBACK IV ×2 (07:43→15:48)
[2025-03-23] MEDS: Potassium Chloride ER 10 MEQ TABLET.ER 20 MEQ PO (07:44)
[2025-03-23] MEDS: 0.9 % Sodium Chloride Flush 3 ML SYRINGE IVFLUSH ×3 (07:44→20:50)
--- NOTE | 2025-03-23 08:06 | P.PNGS_ITS ---
Subjective Subjective Date of Service: 03/23/25 <Chyna Ibarra PA-C - Last Filed: 03/23/25 08:12> 03/23/25 <Shay Haro MD - Last Filed: 03/23/25 08:58> Interval history: Continues to feel overall improved. Tolerated clear liquids yesterday without nausea/vomiting. Continues to pass flatus and RN overnight reports BM. Denies abd pain. Reports some pain in legs after walking yesterday. Reports being very weak with ambulation. <Chyna Ibarra PA-C - Last Filed: 03/23/25 08:12> Physical Exam 2 Vital Signs: Vital Signs: Last Vital Signs Temp 97.5 F 03/23/25 07:27 Pulse 96 03/23/25 07:27 Resp 18 03/23/25 07:27 BP 133/86 03/23/25 07:27 Pulse Ox 94 03/23/25 07:27 O2 Del Method Nasal Cannula 03/23/25 07:27 O2 Flow Rate 2 03/23/25 07:27 BMI result Body Mass Index 27.7 <Chyna Ibarra PA-C - Last Filed: 03/23/25 08:12> Const: General: comfortable, no acute distress and alert <Chyna Ibarra PA-C - Last Filed: 03/23/25 08:12> Orientation/consciousness: patient oriented x3 <Chyna Ibarra PA-C - Last Filed: 03/23/25 08:12> Resp: Other: some increased work of breathing <Chyna Ibarra PA-C - Last Filed: 03/23/25 08:12> Effort & Inspection: not able to speak in complete sentences and no respiratory distress <Chyna Ibarra PA-C - Last Filed: 03/23/25 08:12> GI: Other: mildly distended, improved soft nontender <PAULINE Martell Last Filed: 03/23/25 08:12> Neuro: General: patient oriented x3 and moves all extremities <PAULINE Martell Last Filed: 03/23/25 08:12> Objective Data Active Medications Acetaminophen (Acetaminophen 325 Mg Tablet) 650 mg PO Q6H PRN PRN Reason: Pain, Mild 1-3,fever,headache Albuterol/Ipratropium (Albuterol/Iprat 2.5/0.5mg 3 Ml Ampul.Neb) 3 ml INHALE Q4H PRN PRN Reason: Shortness of Breath/Wheezing Amlodipine Besylate (Amlodipine Besylate 5 Mg Tablet) 5 mg PO BEDTIME [facility]; Protocol Last Admin: 03/22/25 19:29 Dose: 5 mg Documented By: DONNA Apixaban (Apixaban 5 Mg Tablet) 5 mg PO BID@0500,1700 [facility] Last Admin: 03/23/25 04:46 Dose: 5 mg Documented By: DONNA Calcium Carbonate (Calcium Carbonate 750 Mg Tab.Chew) 750 mg PO Q4H PRN PRN Reason: Heartburn Clonazepam (Clonazepam 1 Mg Tablet) 1 mg PO BEDTIME PRN PRN Reason: Anxiety Last Admin: 03/20/25 02:16 Dose: 1 mg Documented By: ARELY Diazepam (Diazepam 10 Mg/2 Ml Cartridge) 10 mg IVPUSH Q6H PRN PRN Reason: Anxiety Last Admin: 03/16/25 20:15 Dose: 10 mg Documented By: TESFAYE Hydroxyzine HCl (Hydroxyzine Hcl 25 Mg Tablet) 25 mg PO TID PRN PRN Reason: Itching Cefepime HCl (Maxipime) 2 gm in 50 mls @ 100 mls/hr IV Q8H [facility] Stop: 03/23/25 23:59 Last Admin: 03/23/25 07:43 Dose: 100 mls/hr Documented By: BETSEY Nutrition (Parenteral) (Parenteral Nutrition) 2,400 mls @ 100 mls/hr IV .Q24H [facility]; Protocol Stop: 03/23/25 20:59 Last Admin: 03/22/25 19:22 Dose: 100 mls/hr Documented By: DONNA Vancomycin HCl 1,500 mg/ (Sodium Chloride) 500 mls @ 333.333 mls/hr IV Q8H [facility] Stop: 03/23/25 23:59 Last Infusion: 03/23/25 06:20 Dose: Infused Documented By: DONNA Potassium Phosphate (Kphos) 15 mmol in 250 mls @ 62.5 mls/hr IV ONCE ONE Stop: 03/23/25 11:30 Lamotrigine (Lamotrigine 100 Mg Tablet) 250 mg PO DAILY [facility] Last Admin: 03/23/25 07:44 Dose: 250 mg Documented By: BETSEY Magnesium Hydroxide (Milk Of Magnesia 30 Ml Oral.Susp) 30 ml PO DAILY PRN PRN Reason: Constipation Magnesium Oxide (Magnesium Oxide 400 Mg Tablet) 400 mg PO DAILY [facility] Last Admin: 03/23/25 07:44 Dose: 400 mg Documented By: BETSEY Melatonin (Melatonin 3 Mg Tablet) 6 mg PO BEDTIME PRN PRN Reason: Insomnia Methylphenidate HCl (Methylphenidate Hcl 10 Mg Tablet) 10 mg PO DAILY [facility] Last Admin: 03/23/25 07:43 Dose: 10 mg Documented By: BETSEY Metoprolol Succinate (Metoprolol Succinate Er 50 Mg Tab.Er.24h) 50 mg PO DAILY [facility]; Protocol Last Admin: 03/23/25 07:43 Dose: 50 mg Documented By: BETSEY Morphine Sulfate (Morphine Sulfate 4 Mg/Ml Cartridge) 4 mg IVPUSH Q3H PRN; Protocol PRN Reason: Pain, Moderate(Pain Scale 4-6) Last Admin: 03/23/25 04:49 Dose: 4 mg Documented By: DONNA Naloxone HCl (Naloxone Hcl 0.4 Mg/Ml Vial) 0.04 mg IVPUSH Q5M PRN PRN Reason: Excessive sedation or RR < 8 Naloxone HCl (Naloxone Hcl 0.4 Mg/Ml Vial) 0.04 mg IVPUSH Q5M PRN PRN Reason: Excessive sedation or RR < 8 Non-Formulary Medication (Methylphenidate Hcl Extended R) 54 mg PO DAILY [facility] Omeprazole (Omeprazole 20 Mg Capsule.Dr) 20 mg PO BEDTIME [facility] Last Admin: 03/22/25 19:28 Dose: 20 mg Documented By: DONNA Ondansetron HCl (Ondansetron Hcl 4 Mg/2 Ml Vial) 4 mg IVPUSH Q8H PRN PRN Reason: Nausea and Vomiting Pharmacy Consult (Consult Rx Parenteral Nutrition Ordering) 1 each MISCELLANE DAILY PRN PRN Reason: Consult order Polyethylene Glycol (Polyethylene Glycol 3350 17 Gm Powd.Pack) 17 gm PO DAILY PRN PRN Reason: Constipation Potassium Chloride (Potassium Chloride Er 10 Meq Tablet.Er) 20 meq PO DAILY [facility] Last Admin: 03/23/25 07:44 Dose: 20 meq Documented By: BETSEY Risperidone (Risperidone 1 Mg Tablet) 1 mg PO BEDTIME [facility] Last Admin: 03/22/25 19:40 Dose: 1 mg Documented By: DONNA Senna (Sennosides 8.6 Mg Tablet) 17.2 mg PO BEDTIME [facility] Last Admin: 03/22/25 19:29 Dose: 17.2 mg Documented By: DONNA Simethicone (Simethicone 80 Mg Tab.Chew) 80 mg PO BID PRN PRN Reason: Abdominal bloating Sodium Chloride (0.9 % Sodium Chloride Flush 3 Ml Syringe) 3 ml IVFLUSH QSHIFT [facility] Last Admin: 03/23/25 07:44 Dose: 3 ml Documented By: BETSEY <Chyna Ibarra PA-C - Last Filed: 03/23/25 08:12> Labs CBC & Chem 7: 03/22/25 06:27 03/23/25 05:48 <Chyna Ibarra PA-C - Last Filed: 03/23/25 08:12> Labs: Laboratory Results - last 24 hr 03/22/25 03/23/25 17:57 05:48 Anion Gap 11 L Estim Creat Clear Calc 200.4 Estimated GFR > 60 Random Glucose 144 H Calcium 8.0 L Phosphorus 2.4 L Magnesium 1.8 Total Bilirubin 0.4 AST 23 ALT 9 Alkaline Phosphatase 56 C-Reactive Protein 4.54 H Total Protein 5.2 L Albumin 2.9 L Triglycerides 106 Procalcitonin 0.13 Random Vancomycin 13.0 L <Chyna Ibarra PA-C - Last Filed: 03/23/25 08:12> Procedures Date of Service Date of Service: 03/23/25 <Chyna Ibarra PA-C - Last Filed: 03/23/25 08:12> 03/23/25 <Shay Haro MD - Last Filed: 03/23/25 08:58> Progress Note: A&P Assessment and plan (1) Abdominal distention: Status: Acute <Chyna Ibarra PA-C - Last Filed: 03/23/25 08:12> Assessment and Plan: He feels well this morning Tolerating clears Nausea or vomiting Passing flatus Abdomen is soft Okay to advance diet as tolerated Seen and examined independently Rest of care as per the hospitalist service <Shay Haro MD - Last Filed: 03/23/25 08:58> Assessment and Plan: Underwent sigmoidoscopy with stent placement 03/20/25. Required NGT for ileus, removed yesterday. Now tolerating clears with good GI function. Abd benign- softly distended but improved, non tonder. Advance to solid diet. Encouraged OOB to promote GI function. ?Pt consult. <Chyna Ibarra PA-C - Last Filed: 03/23/25 08:12> Time Spent With Patient Time: Total time managing care of this patient today ____ minutes. <Chyna Ibarra PA-C - Last Filed: 03/23/25 08:12> Quality Stroke Does the patient have a stroke diagnosis?: No <Chyna Ibarra PA-C - Last Filed: 03/23/25 08:12> Reason for No Anti-thrombotic by Day Two: N/A - Med Ordered <Chyna Ibarra PA-C - Last Filed: 03/23/25 08:12> VTE Prior VTE?: No <Chyna Ibarra PA-C - Last Filed: 03/23/25 08:12> VTE Risk Level:: Medical - moderate - high <Chyna Ibarra PA-C - Last Filed: 03/23/25 08:12> VTE Device Contraindication: N/A - Device Ordered <Chyna Ibarra PA-C - Last Filed: 03/23/25 08:12> VTE Drug Contraindication: N/A - Med Ordered <PAULINE Martell Last Filed: 03/23/25 08:12>
[2025-03-23] MEDS: Potassium Phosphate/NS 15 MMOL/250 ML PLAST..BAG 62.5 MMOL IV (08:21)
--- NOTE | 2025-03-23 09:27 | P.PNIM_ITS ---
Subjective Subjective Date of Service: 03/23/25 Interval History: NGT removed yesterday, tolerating clears, trying solids today passing gas dyspnea/cough improved Review of Systems Review of Systems: Yes all other systems are reviewed and are negative Physical Exam 2 Vital Signs: Vital Signs: Last Vital Signs Temp 97.5 F 03/23/25 07:27 Pulse 96 03/23/25 07:27 Resp 18 03/23/25 07:27 BP 133/86 03/23/25 07:27 Pulse Ox 94 03/23/25 07:27 O2 Del Method Nasal Cannula 03/23/25 07:27 O2 Flow Rate 2 03/23/25 07:27 BMI result Body Mass Index 27.7 Gen: in no acute distress HEENT: sclera anicteric, moist mucus membranes Neck: supple, port R chest wall Lungs: diminished bilaterally Heart: regular rate and rhythm, no murmurs Abd: soft, non-tender, active bowel sounds Ext: no edema Skin: warm/well-perfused Neuro: alert and oriented x3, no focal findings Psych: appropriate affect Objective Data Active Medications Acetaminophen (Acetaminophen 325 Mg Tablet) 650 mg PO Q6H PRN PRN Reason: Pain, Mild 1-3,fever,headache Albuterol/Ipratropium (Albuterol/Iprat 2.5/0.5mg 3 Ml Ampul.Neb) 3 ml INHALE Q4H PRN PRN Reason: Shortness of Breath/Wheezing Amlodipine Besylate (Amlodipine Besylate 5 Mg Tablet) 5 mg PO BEDTIME [facility]; Protocol Last Admin: 03/22/25 19:29 Dose: 5 mg Documented By: DONNA Apixaban (Apixaban 5 Mg Tablet) 5 mg PO BID@0500,1700 [facility] Last Admin: 03/23/25 04:46 Dose: 5 mg Documented By: DONNA Calcium Carbonate (Calcium Carbonate 750 Mg Tab.Chew) 750 mg PO Q4H PRN PRN Reason: Heartburn Clonazepam (Clonazepam 1 Mg Tablet) 1 mg PO BEDTIME PRN PRN Reason: Anxiety Last Admin: 03/20/25 02:16 Dose: 1 mg Documented By: ARELY Diazepam (Diazepam 10 Mg/2 Ml Cartridge) 10 mg IVPUSH Q6H PRN PRN Reason: Anxiety Last Admin: 03/16/25 20:15 Dose: 10 mg Documented By: TESFAYE Hydroxyzine HCl (Hydroxyzine Hcl 25 Mg Tablet) 25 mg PO TID PRN PRN Reason: Itching Cefepime HCl (Maxipime) 2 gm in 50 mls @ 100 mls/hr IV Q8H [facility] Stop: 03/23/25 23:59 Last Infusion: 03/23/25 08:20 Dose: Infused Documented By: BETSEY Nutrition (Parenteral) (Parenteral Nutrition) 2,400 mls @ 100 mls/hr IV .Q24H [facility]; Protocol Stop: 03/23/25 20:59 Last Admin: 03/22/25 19:22 Dose: 100 mls/hr Documented By: DONNA Vancomycin HCl 1,500 mg/ (Sodium Chloride) 500 mls @ 333.333 mls/hr IV Q8H [facility] Stop: 03/23/25 23:59 Last Infusion: 03/23/25 06:20 Dose: Infused Documented By: DONNA Potassium Phosphate (Kphos) 15 mmol in 250 mls @ 62.5 mls/hr IV ONCE ONE Stop: 03/23/25 11:30 Last Admin: 03/23/25 08:21 Dose: 62.5 mls/hr Documented By: BETSEY Lamotrigine (Lamotrigine 100 Mg Tablet) 250 mg PO DAILY [facility] Last Admin: 03/23/25 07:44 Dose: 250 mg Documented By: BETSEY Magnesium Hydroxide (Milk Of Magnesia 30 Ml Oral.Susp) 30 ml PO DAILY PRN PRN Reason: Constipation Magnesium Oxide (Magnesium Oxide 400 Mg Tablet) 400 mg PO DAILY [facility] Last Admin: 03/23/25 07:44 Dose: 400 mg Documented By: BETSEY Melatonin (Melatonin 3 Mg Tablet) 6 mg PO BEDTIME PRN PRN Reason: Insomnia Methylphenidate HCl (Methylphenidate Hcl 10 Mg Tablet) 10 mg PO DAILY [facility] Last Admin: 03/23/25 07:43 Dose: 10 mg Documented By: BETSEY Metoprolol Succinate (Metoprolol Succinate Er 50 Mg Tab.Er.24h) 50 mg PO DAILY [facility]; Protocol Last Admin: 03/23/25 07:43 Dose: 50 mg Documented By: BETSEY Naloxone HCl (Naloxone Hcl 0.4 Mg/Ml Vial) 0.04 mg IVPUSH Q5M PRN PRN Reason: Excessive sedation or RR < 8 Naloxone HCl (Naloxone Hcl 0.4 Mg/Ml Vial) 0.04 mg IVPUSH Q5M PRN PRN Reason: Excessive sedation or RR < 8 Non-Formulary Medication (Methylphenidate Hcl Extended R) 54 mg PO DAILY [facility] Omeprazole (Omeprazole 20 Mg Capsule.Dr) 20 mg PO BEDTIME [facility] Last Admin: 03/22/25 19:28 Dose: 20 mg Documented By: DONNA Ondansetron HCl (Ondansetron Hcl 4 Mg/2 Ml Vial) 4 mg IVPUSH Q8H PRN PRN Reason: Nausea and Vomiting Pharmacy Consult (Consult Rx Parenteral Nutrition Ordering) 1 each MISCELLANE DAILY PRN PRN Reason: Consult order Polyethylene Glycol (Polyethylene Glycol 3350 17 Gm Powd.Pack) 17 gm PO DAILY PRN PRN Reason: Constipation Potassium Chloride (Potassium Chloride Er 10 Meq Tablet.Er) 20 meq PO DAILY [facility] Last Admin: 03/23/25 07:44 Dose: 20 meq Documented By: BETSEY Risperidone (Risperidone 1 Mg Tablet) 1 mg PO BEDTIME [facility] Last Admin: 03/22/25 19:40 Dose: 1 mg Documented By: DONNA Senna (Sennosides 8.6 Mg Tablet) 17.2 mg PO BEDTIME [facility] Last Admin: 03/22/25 19:29 Dose: 17.2 mg Documented By: DONNA Simethicone (Simethicone 80 Mg Tab.Chew) 80 mg PO BID PRN PRN Reason: Abdominal bloating Sodium Chloride (0.9 % Sodium Chloride Flush 3 Ml Syringe) 3 ml IVFLUSH QSHIFT [facility] Last Admin: 03/23/25 07:44 Dose: 3 ml Documented By: BETSEY Labs 03/22/25 06:27 03/23/25 05:48 Labs: Laboratory Results - last 24 hr 03/22/25 03/23/25 17:57 05:48 Anion Gap 11 L Estim Creat Clear Calc 200.4 Estimated GFR > 60 Random Glucose 144 H Calcium 8.0 L Phosphorus 2.4 L Magnesium 1.8 Total Bilirubin 0.4 AST 23 ALT 9 Alkaline Phosphatase 56 C-Reactive Protein 4.54 H Total Protein 5.2 L Albumin 2.9 L Triglycerides 106 Procalcitonin 0.13 Random Vancomycin 13.0 L Assessment and Plan (1) Colon cancer metastasized to liver: Status: Chronic Plan d8, 60yo M with 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, PE on apixaban, HTN, GERD, anxiety sent in from Oncology Clinic with concern for bowel obstruction in setting of neutropenia; found to have colitis/rectal obstruction/pneumonia rectal mass distal colon obstruction - POD3 sigmoidoscopy + stenting by GI Dr Gregg - Gen Surg following, NGT out 03/23 and tolerating clear liquid diet, advance to solids today and if tolerates will d/c TPN colitis pneumonia - stool studies + C diff negative, complete vancomycin + cefepime 03/16-03/23, blood cultures negative, PCT coming down, wean off O2 hypoPO4 - replete IV, recheck levels tomorrow, watch for refeeding syndrome neutropenia - resolved, d/c precautions HTN - amlodipine, metoprolol succinate metastatic rectosigmoid CA - followed by Dr Case at [facility] [place] mood disorder - clonazepam, lamotrigine, risperidone ADHD - methlyphenidate hx PE - apixaban dispo - PT eval requested In my clinical judgment, the patient requires continued inpatient hospitalization for the following reasons: colon obstruction, on TPN, postop care Total time managing care of this patient today: 45 minutes. Quality Stroke Does the patient have a stroke diagnosis?: No Reason for No Anti-thrombotic by Day Two: N/A - Med Ordered VTE Prior VTE?: No VTE Risk Level:: Medical - moderate - high VTE Device Contraindication: N/A - Device Ordered VTE Drug Contraindication: N/A - Med Ordered
--- NOTE | 2025-03-23 10:24 | MHC.CLN ---
F/U DIET ADVANCED TODAY TO REGULAR. PER PROVIDER, CONTINUE PPN TODAY AND DISCONTINUE WEDNESDAY IF PATIENT TOLERATING DIET. REVIEWED LABS. COMMUNICATED WITH PHARMACY. RECOMMEND CONTINUE PPN AT 100ML/HR TO PROVIDE 1224 KCALS, 240 G DEXTROSE, 102 G PROTEIN. REPLETE LYTES NEEDED. IF PPN CONTINUES 03/24, RECOMMEND PPN AT 100 ML PER HOUR, ADD 100G LIPIDS TO PROVIDE 2224 TOTAL KCALS (23.3 KCALS/KG), 102 G PROTEIN (1.1 G/KG), 240 G DEXTROSE. REPLETE LYTES NEEDED. FOLLOW FOR PPN TOLERANCE, PO INTAKE, DIET TOLERANCE.
[2025-03-23 11:01] VITALS: BP 133/86; PULSE 96; O2SAT 94
[2025-03-23] MEDS: METHYLPHENIDATE 54 EACH PO (12:42)
--- NOTE | 2025-03-23 14:09 | MHC.CM.PN ---
EMR REVIEWED AND PER MD ROUNDS, PT IS NOT MEDICALLY CLEARED FOR DC. PT'S N/G TUBE IS DC AND STARTING ON LIQUIDS. P.T. REC HOME WITH SERVICES,COMFORT PLUS FO[facility]. CM WILL CONTINUE TO FOLLOW FOR ANY CHANGE TO DC PLAN/NEEDS.
[2025-03-23 15:15] VITALS: BP 126/80; PULSE 93; RESP 18; TEMP 36.5; O2SAT 96
[2025-03-23 19:29] VITALS: BP 155/81; PULSE 95; RESP 18; TEMP 36.2; O2SAT 95
[2025-03-23] MEDS: Parenteral Nutrition 2,400 ML 100 ML IV (20:26)
[2025-03-24 03:20] VITALS: BP 116/77; PULSE 91; RESP 18; TEMP 36.3; O2SAT 94
[2025-03-24 07:09] VITALS: BP 114/80; PULSE 90; RESP 18; TEMP 36.8; O2SAT 94
[2025-03-24 07:29] LABS: Alanine Aminotransferase 10 U/L (0-40); Albumin Level 3.1 g/dL (3.5-5.0); Alkaline Phosphatase 64 U/L (39-117); Anion Gap 15 (12-20); Aspartate Amino Transferase 25 U/L (5-37); Blood Urea Nitrogen 10 mg/dL (9-16); Calcium 8.3 mg/dL (8.4-10.2); Carbon Dioxide 26 mmol/L (22-29); Chloride 104 mmol/L (96-108); Creatinine Clr Calc Pharmacy 176.8; Estimated Glomerular Filt Rate > 60; Magnesium 2.1 mg/dL (1.6-2.6); Potassium 3.7 mmol/L (3.3-5.1); Sodium 141 mmol/L (135-145); Total Protein 5.6 g/dL (6.5-8.0)
[2025-03-24] MEDS: 0.9 % Sodium Chloride Flush 3 ML SYRINGE IVFLUSH ×2 (08:40→17:54)
[2025-03-24] MEDS: Potassium Chloride ER 10 MEQ TABLET.ER 20 MEQ PO (08:41)
[2025-03-24] MEDS: Metoprolol Succinate ER 50 MG TAB.ER.24H PO (08:42)
[2025-03-24] MEDS: METHYLPHENIDATE 54 EACH PO (09:05)
--- NOTE | 2025-03-24 11:19 | HO.PM.IMPN ---
Subjective Subjective Date of Service: 03/24/25 Interval History: With feeling better, no abdominal pain or N/V Has been tolerating solid diet, eating some sausage, muffin, and home for as this morning Two loose bowel movements yesterday, none yet today Has been walking with PT, will attempt to walk again today to see if can be discharged home with services vs STR Will stop TPN today Review of Systems Review of Systems: Yes all other systems are reviewed and are negative Physical Exam Exam: Exam: General: AOx3, no acute distress Resp: CTA bilaterally CVS: S1, S2, RRR GI: +BS, soft, NT, no distention Skin: Warm, dry Neuro: Cranial nerves II-XII grossly intact bilaterally. Motor grossly intact bilaterally Extremities: No edema Psych: Appropriate affect Vital Signs: Vital Signs: Last Vital Signs Temp 98.3 F 03/24/25 07:09 Pulse 90 03/24/25 07:09 Resp 18 03/24/25 07:09 BP 114/80 03/24/25 07:09 Pulse Ox 94 03/24/25 07:09 O2 Del Method Room Air 03/24/25 07:09 O2 Flow Rate 2 03/23/25 19:29 BMI result Body Mass Index 27.7 Objective Data Active Medications Acetaminophen (Acetaminophen 325 Mg Tablet) 650 mg PO Q6H PRN PRN Reason: Pain, Mild 1-3,fever,headache Amlodipine Besylate (Amlodipine Besylate 5 Mg Tablet) 5 mg PO BEDTIME [facility]; Protocol Last Admin: 03/23/25 20:44 Dose: 5 mg Documented By: TRISTON Apixaban (Apixaban 5 Mg Tablet) 5 mg PO BID@0500,1700 [facility] Last Admin: 03/24/25 05:59 Dose: 5 mg Documented By: JACKIE Calcium Carbonate (Calcium Carbonate 750 Mg Tab.Chew) 750 mg PO Q4H PRN PRN Reason: Heartburn Clonazepam (Clonazepam 1 Mg Tablet) 1 mg PO BEDTIME PRN PRN Reason: Anxiety Last Admin: 03/20/25 02:16 Dose: 1 mg Documented By: ARELY Diazepam (Diazepam 10 Mg/2 Ml Cartridge) 10 mg IVPUSH Q6H PRN PRN Reason: Anxiety Last Admin: 03/16/25 20:15 Dose: 10 mg Documented By: TESFAYE Hydroxyzine HCl (Hydroxyzine Hcl 25 Mg Tablet) 25 mg PO TID PRN PRN Reason: Itching Nutrition (Parenteral) (Parenteral Nutrition) 2,400 mls @ 100 mls/hr IV .Q24H [facility]; Protocol Stop: 03/24/25 20:59 Last Admin: 03/23/25 20:26 Dose: 100 mls/hr Documented By: TRISTON Lamotrigine (Lamotrigine 100 Mg Tablet) 250 mg PO DAILY [facility] Last Admin: 03/24/25 08:40 Dose: 250 mg Documented By: GANGA Magnesium Hydroxide (Milk Of Magnesia 30 Ml Oral.Susp) 30 ml PO DAILY PRN PRN Reason: Constipation Magnesium Oxide (Magnesium Oxide 400 Mg Tablet) 400 mg PO DAILY [facility] Last Admin: 03/24/25 08:42 Dose: 400 mg Documented By: GANGA Melatonin (Melatonin 3 Mg Tablet) 6 mg PO BEDTIME PRN PRN Reason: Insomnia Methylphenidate HCl (Methylphenidate Hcl 10 Mg Tablet) 10 mg PO DAILY [facility] Last Admin: 03/24/25 08:42 Dose: 10 mg Documented By: GANGA Metoprolol Succinate (Metoprolol Succinate Er 50 Mg Tab.Er.24h) 50 mg PO DAILY [facility]; Protocol Last Admin: 03/24/25 08:42 Dose: 50 mg Documented By: GANGA Morphine Sulfate (Morphine Sulfate 4 Mg/Ml Cartridge) 4 mg IVPUSH Q3H PRN; Protocol PRN Reason: Pain, Severe (Pain Scale 7-10) Last Admin: 03/23/25 20:50 Dose: 4 mg Documented By: TRISTON Naloxone HCl (Naloxone Hcl 0.4 Mg/Ml Vial) 0.04 mg IVPUSH Q5M PRN PRN Reason: Excessive sedation or RR < 8 Naloxone HCl (Naloxone Hcl 0.4 Mg/Ml Vial) 0.04 mg IVPUSH Q5M PRN PRN Reason: Excessive sedation or RR < 8 Patient Own ( Methylphenidate Hcl Extended R 54 Mg) 54 mg PO DAILY [facility] Last Admin: 03/24/25 09:05 Dose: 54 mg Documented By: GANGA Omeprazole (Omeprazole 20 Mg Capsule.Dr) 20 mg PO BEDTIME [facility] Last Admin: 03/23/25 20:44 Dose: 20 mg Documented By: TRISTON Ondansetron HCl (Ondansetron Hcl 4 Mg/2 Ml Vial) 4 mg IVPUSH Q8H PRN PRN Reason: Nausea and Vomiting Pharmacy Consult (Consult Rx Parenteral Nutrition Ordering) 1 each MISCELLANE DAILY PRN PRN Reason: Consult order Polyethylene Glycol (Polyethylene Glycol 3350 17 Gm Powd.Pack) 17 gm PO DAILY PRN PRN Reason: Constipation Potassium Chloride (Potassium Chloride Er 10 Meq Tablet.Er) 20 meq PO DAILY [facility] Last Admin: 03/24/25 08:41 Dose: 20 meq Documented By: GAGNA Risperidone (Risperidone 1 Mg Tablet) 1 mg PO BEDTIME [facility] Last Admin: 03/23/25 20:44 Dose: 1 mg Documented By: TRISTON Senna (Sennosides 8.6 Mg Tablet) 17.2 mg PO BEDTIME [facility] Last Admin: 03/23/25 20:46 Dose: Not Given Documented By: TRISTON Non-Admin Reason: Patient Refused Simethicone (Simethicone 80 Mg Tab.Chew) 80 mg PO BID PRN PRN Reason: Abdominal bloating Sodium Chloride (0.9 % Sodium Chloride Flush 3 Ml Syringe) 3 ml IVFLUSH QSHIFT [facility] Last Admin: 03/24/25 08:40 Dose: 3 ml Documented By: GANGA Labs 03/22/25 06:27 03/24/25 06:08 Labs: Laboratory Results - last 24 hr 03/24/25 06:08 Hold Purple Top SEE NOTE Anion Gap 15 Estim Creat Clear Calc 176.8 Estimated GFR > 60 Random Glucose 126 H Calcium 8.3 L Phosphorus 2.9 Magnesium 2.1 Total Bilirubin 0.4 AST 25 ALT 10 Alkaline Phosphatase 64 Total Protein 5.6 L Albumin 3.1 L Assessment and Plan (1) Colon cancer metastasized to liver: Status: Chronic Plan d9, 60yo M with 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, PE on apixaban, HTN, GERD, anxiety sent in from Oncology Clinic with concern for bowel obstruction in setting of neutropenia; found to have colitis/rectal obstruction/pneumonia rectal mass distal colon obstruction - POD4 sigmoidoscopy + stenting by GI Dr Gregg - Gen Surg following, NGT out 03/23 and tolerating full diet since yesterday, d/c TPN today colitis pneumonia - stool studies + C diff negative, completed vancomycin + cefepime 03/16-03/23, blood cultures negative, PCT coming down, has been weaned off O2 hypoPO4 - replete IV, recheck levels tomorrow, watch for refeeding syndrome neutropenia - resolved, d/c precautions HTN - amlodipine, metoprolol succinate metastatic rectosigmoid CA - followed by Dr Case at [facility] [place] mood disorder - clonazepam, lamotrigine, risperidone ADHD - methlyphenidate hx PE - apixaban dispo - PT eval requested In my clinical judgment, the patient requires continued inpatient hospitalization for the following reasons: colon obstruction, postop care, safe disposition home. Quality Stroke Does the patient have a stroke diagnosis?: No Reason for No Anti-thrombotic by Day Two: N/A - Med Ordered VTE Prior VTE?: No VTE Risk Level:: Medical - moderate - high VTE Device Contraindication: N/A - Device Ordered VTE Drug Contraindication: N/A - Med Ordered
[2025-03-24 16:04] VITALS: BP 131/83; PULSE 85; RESP 18; TEMP 36.1; O2SAT 97
[2025-03-24 19:46] VITALS: BP 134/91; PULSE 91; RESP 18; TEMP 36.7; O2SAT 95
[2025-03-25 04:00] VITALS: BP 115/76; PULSE 91; RESP 18; TEMP 36.4; O2SAT 95
[2025-03-25 05:53] VITALS: BMI 24.5
[2025-03-25 06:53] LABS: Alanine Aminotransferase 13 U/L (0-40); Albumin Level 3.1 g/dL (3.5-5.0); Alkaline Phosphatase 76 U/L (39-117); Anion Gap 14 (12-20); Aspartate Amino Transferase 24 U/L (5-37); Blood Urea Nitrogen 8 mg/dL (9-16); Calcium 8.4 mg/dL (8.4-10.2); Carbon Dioxide 24 mmol/L (22-29); Chloride 105 mmol/L (96-108); Creatinine Clr Calc Pharmacy 176.8; Estimated Glomerular Filt Rate > 60; Magnesium 2.1 mg/dL (1.6-2.6); Potassium 4.1 mmol/L (3.3-5.1); Sodium 139 mmol/L (135-145); Total Protein 5.8 g/dL (6.5-8.0)
[2025-03-25 07:51] VITALS: BP 132/89
[2025-03-25] MEDS: Metoprolol Succinate ER 50 MG TAB.ER.24H PO (07:51)
[2025-03-25] MEDS: Potassium Chloride ER 10 MEQ TABLET.ER 20 MEQ PO (07:52)
[2025-03-25] MEDS: METHYLPHENIDATE 54 EACH PO (07:53)
[2025-03-25 08:00] VITALS: BP 132/85; PULSE 96; RESP 16; TEMP 36.2; O2SAT 95
--- NOTE | 2025-03-25 14:07 | HO.PM.IMPN ---
Subjective Subjective Date of Service: 03/25/25 Interval History: Not much appetite No N/V or abd pain, able to eat small amounts Loose stool again this morning Red rash on scrotum Needs PT re-evaluation Review of Systems Review of Systems: Yes all other systems are reviewed and are negative Physical Exam Exam: Exam: General: AOx3, no acute distress Resp: CTA bilaterally CVS: S1, S2, RRR GI: +BS, NT, no distention : Scrotum erythematous with white plaques Skin: Warm, dry Neuro: Cranial nerves II-XII grossly intact bilaterally. Motor grossly intact bilaterally Extremities: No edema Psych: Appropriate affect Vital Signs: Vital Signs: Last Vital Signs Temp 97.2 F 03/25/25 08:00 Pulse 96 03/25/25 08:00 Resp 16 03/25/25 08:00 BP 132/85 03/25/25 08:00 Pulse Ox 95 03/25/25 08:00 O2 Del Method Room Air 03/25/25 08:00 O2 Flow Rate 2 03/23/25 19:29 BMI result Body Mass Index 24.5 Objective Data Active Medications Acetaminophen (Acetaminophen 325 Mg Tablet) 650 mg PO Q6H PRN PRN Reason: Pain, Mild 1-3,fever,headache Amlodipine Besylate (Amlodipine Besylate 5 Mg Tablet) 5 mg PO BEDTIME [facility]; Protocol Last Admin: 03/24/25 20:57 Dose: 5 mg Documented By: CANDELARIO Apixaban (Apixaban 5 Mg Tablet) 5 mg PO BID@0500,1700 [facility] Last Admin: 03/25/25 04:32 Dose: 5 mg Documented By: CANDELARIO Calcium Carbonate (Calcium Carbonate 750 Mg Tab.Chew) 750 mg PO Q4H PRN PRN Reason: Heartburn Clonazepam (Clonazepam 1 Mg Tablet) 1 mg PO BEDTIME PRN PRN Reason: Anxiety Last Admin: 03/20/25 02:16 Dose: 1 mg Documented By: ARELY Diazepam (Diazepam 10 Mg/2 Ml Cartridge) 10 mg IVPUSH Q6H PRN PRN Reason: Anxiety Last Admin: 03/16/25 20:15 Dose: 10 mg Documented By: TESFAYE Hydroxyzine HCl (Hydroxyzine Hcl 25 Mg Tablet) 25 mg PO TID PRN PRN Reason: Itching Lamotrigine (Lamotrigine 100 Mg Tablet) 250 mg PO DAILY [facility] Last Admin: 03/25/25 07:52 Dose: 250 mg Documented By: GANGA Magnesium Hydroxide (Milk Of Magnesia 30 Ml Oral.Susp) 30 ml PO DAILY PRN PRN Reason: Constipation Magnesium Oxide (Magnesium Oxide 400 Mg Tablet) 400 mg PO DAILY [facility] Last Admin: 03/25/25 07:52 Dose: 400 mg Documented By: GANGA Melatonin (Melatonin 3 Mg Tablet) 6 mg PO BEDTIME PRN PRN Reason: Insomnia Methylphenidate HCl (Methylphenidate Hcl 10 Mg Tablet) 10 mg PO DAILY [facility] Last Admin: 03/25/25 07:51 Dose: 10 mg Documented By: GANGA Metoprolol Succinate (Metoprolol Succinate Er 50 Mg Tab.Er.24h) 50 mg PO DAILY [facility]; Protocol Last Admin: 03/25/25 07:51 Dose: 50 mg Documented By: GANGA Morphine Sulfate (Morphine Sulfate 4 Mg/Ml Cartridge) 4 mg IVPUSH Q3H PRN; Protocol PRN Reason: Pain, Severe (Pain Scale 7-10) Last Admin: 03/24/25 22:05 Dose: 4 mg Documented By: CANDELARIO Naloxone HCl (Naloxone Hcl 0.4 Mg/Ml Vial) 0.04 mg IVPUSH Q5M PRN PRN Reason: Excessive sedation or RR < 8 Naloxone HCl (Naloxone Hcl 0.4 Mg/Ml Vial) 0.04 mg IVPUSH Q5M PRN PRN Reason: Excessive sedation or RR < 8 Patient Own ( Methylphenidate Hcl Extended R 54 Mg) 54 mg PO DAILY [facility] Last Admin: 03/25/25 07:53 Dose: 54 mg Documented By: GANGA Omeprazole (Omeprazole 20 Mg Capsule.Dr) 20 mg PO BEDTIME [facility] Last Admin: 03/24/25 20:58 Dose: 20 mg Documented By: CANDELARIO Ondansetron HCl (Ondansetron Hcl 4 Mg/2 Ml Vial) 4 mg IVPUSH Q8H PRN PRN Reason: Nausea and Vomiting Pharmacy Consult (Consult Rx Parenteral Nutrition Ordering) 1 each MISCELLANE DAILY PRN PRN Reason: Consult order Polyethylene Glycol (Polyethylene Glycol 3350 17 Gm Powd.Pack) 17 gm PO DAILY PRN PRN Reason: Constipation Potassium Chloride (Potassium Chloride Er 10 Meq Tablet.Er) 20 meq PO DAILY [facility] Last Admin: 03/25/25 07:52 Dose: 20 meq Documented By: GANGA Risperidone (Risperidone 1 Mg Tablet) 1 mg PO BEDTIME [facility] Last Admin: 03/24/25 20:58 Dose: 1 mg Documented By: CANDELARIO Senna (Sennosides 8.6 Mg Tablet) 17.2 mg PO BEDTIME [facility] Last Admin: 03/24/25 20:57 Dose: 17.2 mg Documented By: CANDELARIO Simethicone (Simethicone 80 Mg Tab.Chew) 80 mg PO BID PRN PRN Reason: Abdominal bloating Sodium Chloride (0.9 % Sodium Chloride Flush 3 Ml Syringe) 3 ml IVFLUSH QSHIFT [facility] Last Admin: 03/25/25 13:35 Dose: Not Given Documented By: GANGA Non-Admin Reason: Patient Asleep Labs 03/22/25 06:27 03/25/25 05:57 Labs: Laboratory Results - last 24 hr 03/25/25 05:57 Hold Purple Top SEE NOTE Anion Gap 14 Estim Creat Clear Calc 176.8 Estimated GFR > 60 Random Glucose 98 Calcium 8.4 Phosphorus 2.8 Magnesium 2.1 Total Bilirubin 0.5 AST 24 ALT 13 Alkaline Phosphatase 76 Total Protein 5.8 L Albumin 3.1 L Assessment and Plan (1) Colon cancer metastasized to liver: Status: Chronic Plan d10, 60yo M with 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, PE on apixaban, HTN, GERD, anxiety sent in from Oncology Clinic with concern for bowel obstruction in setting of neutropenia; found to have colitis/rectal obstruction/pneumonia rectal mass w/distal colon obstruction - POD5 sigmoidoscopy + stenting by GI Dr Gregg - Gen Surg following, NGT out 03/23 and tolerating full diet since 03/23, TPN d/c 03/24 colitis pneumonia - stool studies + C diff negative, completed vancomycin + cefepime 03/16-03/23, blood cultures negative, PCT coming down, has been weaned off O2 hypoPO4 - replete IV, recheck levels tomorrow, watch for refeeding syndrome neutropenia - resolved, d/c precautions syed cruris - clotrimazole 1% cream b.i.d. HTN - amlodipine, metoprolol succinate metastatic rectosigmoid CA - followed by Dr Case at [facility] [place] mood disorder - clonazepam, lamotrigine, risperidone ADHD - methlyphenidate hx PE - apixaban dispo - PT eval equivocal, suggesting home with PT vs acute rehab - we will get PT re-evaluation on 03/26 for disposition clarification In my clinical judgment, the patient requires continued inpatient hospitalization for the following reasons: colon obstruction, postop care, safe disposition home. Quality Stroke Does the patient have a stroke diagnosis?: No Reason for No Anti-thrombotic by Day Two: N/A - Med Ordered VTE Prior VTE?: No VTE Risk Level:: Medical - moderate - high VTE Device Contraindication: N/A - Device Ordered VTE Drug Contraindication: N/A - Med Ordered
[2025-03-25 16:00] VITALS: BP 130/86; PULSE 87; RESP 18; TEMP 36.7; O2SAT 95
[2025-03-25] MEDS: Clotrimazole 1 % Cream 15 GM TUBE 1 APPL TOPICAL ×2 (16:08→19:21)
[2025-03-25] MEDS: 0.9 % Sodium Chloride Flush 3 ML SYRINGE IVFLUSH ×2 (17:17→19:19)
[2025-03-25 19:16] VITALS: BP 127/96; PULSE 82; RESP 18; TEMP 36.7; O2SAT 96
[2025-03-26 03:37] VITALS: BP 115/70; PULSE 90; RESP 18; TEMP 36.3; O2SAT 94
[2025-03-26 06:00] VITALS: BMI 25.3
[2025-03-26 07:06] LABS: Alanine Aminotransferase 14 U/L (0-40); Albumin Level 3.3 g/dL (3.5-5.0); Alkaline Phosphatase 85 U/L (39-117); Anion Gap 15 (12-20); Aspartate Amino Transferase 25 U/L (5-37); Blood Urea Nitrogen 7 mg/dL (9-16); Calcium 8.4 mg/dL (8.4-10.2); Carbon Dioxide 23 mmol/L (22-29); Chloride 104 mmol/L (96-108); Creatinine Clr Calc Pharmacy 163.9; Estimated Glomerular Filt Rate > 60; Magnesium 2.0 mg/dL (1.6-2.6); Potassium 4.1 mmol/L (3.3-5.1); Sodium 138 mmol/L (135-145); Total Protein 6.1 g/dL (6.5-8.0)
[2025-03-26 09:51] VITALS: BP 134/86; PULSE 89; RESP 12; TEMP 36.9; O2SAT 97
[2025-03-26] MEDS: Metoprolol Succinate ER 50 MG TAB.ER.24H PO (10:03)
--- NOTE | 2025-03-26 10:03 | MHC.CLN ---
F/U DIET=REGULAR. ENSURE TID ADDED TO PROMOTE NUTRITIONAL INTAKE. SUPPLEMENT PROVIDES 1050 KCALS, 60 G PROTEIN. INTAKE USUALLY APPROX 50%. NEUTROPENIC PRECAUTIONS DISCONTINUED. FOLLOW FOR PO INTAKE.
[2025-03-26] MEDS: Potassium Chloride ER 10 MEQ TABLET.ER 20 MEQ PO (10:04)
[2025-03-26] MEDS: 0.9 % Sodium Chloride Flush 3 ML SYRINGE IVFLUSH ×3 (10:04→20:08)
[2025-03-26] MEDS: Clotrimazole 1 % Cream 15 GM TUBE 1 APPL TOPICAL ×2 (10:05→20:11)
[2025-03-26] MEDS: METHYLPHENIDATE 54 EACH PO (10:12)
--- NOTE | 2025-03-26 12:15 | P.PNIM_ITS ---
Subjective Subjective Date of Service: 03/26/25 Interval History: Pt feeling tired, has not slept well while in the hospital Has had a couple of episodes of diarrhea and fecal incontinence Otherwise no complaints Rash on scrotum not pruritic or painful No fever or chills Waiting on PT re-evaluation for disposition home Review of Systems Review of Systems: Yes all other systems are reviewed and are negative Physical Exam 2 Exam: Exam: General: AOx3, no acute distress Resp: CTA bilaterally CVS: S1, S2, RRR GI: +BS, NT, no distention Skin: Warm, dry : Scrotum with erythema mildly improved yesterday. No white plaques noted. Neuro: Cranial nerves II-XII grossly intact bilaterally. Motor grossly intact bilaterally Extremities: No edema Psych: Appropriate affect Vital Signs: Vital Signs: Last Vital Signs Temp 98.5 F 03/26/25 09:51 Pulse 89 03/26/25 09:51 Resp 12 03/26/25 09:51 BP 134/86 03/26/25 09:51 Pulse Ox 97 03/26/25 09:51 O2 Del Method Room Air 03/26/25 09:51 O2 Flow Rate 2 03/26/25 03:37 BMI result Body Mass Index 25.3 Objective Data Active Medications Acetaminophen (Acetaminophen 325 Mg Tablet) 650 mg PO Q6H PRN PRN Reason: Pain, Mild 1-3,fever,headache Last Admin: 03/25/25 16:09 Dose: 650 mg Documented By: GANGA Amlodipine Besylate (Amlodipine Besylate 5 Mg Tablet) 5 mg PO BEDTIME [facility]; Protocol Last Admin: 03/25/25 19:19 Dose: 5 mg Documented By: JEMIMA Apixaban (Apixaban 5 Mg Tablet) 5 mg PO BID@0500,1700 [facility] Last Admin: 03/26/25 04:59 Dose: 5 mg Documented By: JEMIMA Calcium Carbonate (Calcium Carbonate 750 Mg Tab.Chew) 750 mg PO Q4H PRN PRN Reason: Heartburn Clonazepam (Clonazepam 1 Mg Tablet) 1 mg PO BEDTIME PRN PRN Reason: Anxiety Last Admin: 03/20/25 02:16 Dose: 1 mg Documented By: ARELY Clotrimazole (Clotrimazole 1 % Cream 15 Gm Tube) 1 appl TOPICAL BID [facility]; Protocol Last Admin: 03/26/25 10:05 Dose: 1 appl Documented By: YENNI Diazepam (Diazepam 10 Mg/2 Ml Cartridge) 10 mg IVPUSH Q6H PRN PRN Reason: Anxiety Last Admin: 03/16/25 20:15 Dose: 10 mg Documented By: TESFAYE Hydroxyzine HCl (Hydroxyzine Hcl 25 Mg Tablet) 25 mg PO TID PRN PRN Reason: Itching Lamotrigine (Lamotrigine 100 Mg Tablet) 250 mg PO DAILY [facility] Last Admin: 03/26/25 10:03 Dose: 250 mg Documented By: YENNI Magnesium Hydroxide (Milk Of Magnesia 30 Ml Oral.Susp) 30 ml PO DAILY PRN PRN Reason: Constipation Magnesium Oxide (Magnesium Oxide 400 Mg Tablet) 400 mg PO DAILY [facility] Last Admin: 03/26/25 10:03 Dose: 400 mg Documented By: YENNI Melatonin (Melatonin 3 Mg Tablet) 6 mg PO BEDTIME PRN PRN Reason: Insomnia Methylphenidate HCl (Methylphenidate Hcl 10 Mg Tablet) 10 mg PO DAILY [facility] Last Admin: 03/26/25 10:04 Dose: 10 mg Documented By: YENNI Metoprolol Succinate (Metoprolol Succinate Er 50 Mg Tab.Er.24h) 50 mg PO DAILY [facility]; Protocol Last Admin: 03/26/25 10:03 Dose: 50 mg Documented By: YENNI Morphine Sulfate (Morphine Sulfate 4 Mg/Ml Cartridge) 4 mg IVPUSH Q4H PRN; Protocol PRN Reason: Pain, Severe (Pain Scale 7-10) Naloxone HCl (Naloxone Hcl 0.4 Mg/Ml Vial) 0.04 mg IVPUSH Q5M PRN PRN Reason: Excessive sedation or RR < 8 Naloxone HCl (Naloxone Hcl 0.4 Mg/Ml Vial) 0.04 mg IVPUSH Q5M PRN PRN Reason: Excessive sedation or RR < 8 Patient Own ( Methylphenidate Hcl Extended R 54 Mg) 54 mg PO DAILY [facility] Last Admin: 03/26/25 10:12 Dose: 54 mg Documented By: YENNI Omeprazole (Omeprazole 20 Mg Capsule.Dr) 20 mg PO BEDTIME [facility] Last Admin: 03/25/25 19:18 Dose: 20 mg Documented By: JEMIMA Ondansetron HCl (Ondansetron Hcl 4 Mg/2 Ml Vial) 4 mg IVPUSH Q8H PRN PRN Reason: Nausea and Vomiting Oxycodone HCl (Oxycodone Hcl Immed Release 5 Mg Tablet) 5 mg PO Q4H PRN PRN Reason: Pain, Moderate(Pain Scale 4-6) Pharmacy Consult (Consult Rx Parenteral Nutrition Ordering) 1 each MISCELLANE DAILY PRN PRN Reason: Consult order Polyethylene Glycol (Polyethylene Glycol 3350 17 Gm Powd.Pack) 17 gm PO DAILY PRN PRN Reason: Constipation Potassium Chloride (Potassium Chloride Er 10 Meq Tablet.Er) 20 meq PO DAILY [facility] Last Admin: 03/26/25 10:04 Dose: 20 meq Documented By: YENNI Risperidone (Risperidone 1 Mg Tablet) 1 mg PO BEDTIME [facility] Last Admin: 03/25/25 19:19 Dose: 1 mg Documented By: JEMIMA Senna (Sennosides 8.6 Mg Tablet) 17.2 mg PO BEDTIME [facility] Last Admin: 03/25/25 19:18 Dose: Not Given Documented By: JEMIMA Non-Admin Reason: diarrhea Simethicone (Simethicone 80 Mg Tab.Chew) 80 mg PO BID PRN PRN Reason: Abdominal bloating Sodium Chloride (0.9 % Sodium Chloride Flush 3 Ml Syringe) 3 ml IVFLUSH QSHIFT [facility] Last Admin: 03/26/25 10:04 Dose: 3 ml Documented By: YENNI Labs 03/22/25 06:27 03/26/25 05:51 Labs: Laboratory Results - last 24 hr 03/26/25 03/26/25 05:51 06:25 Hold Purple Top SEE NOTE Anion Gap 15 Estim Creat Clear Calc 163.9 Estimated GFR > 60 Random Glucose 89 Calcium 8.4 Magnesium 2.0 Total Bilirubin 0.6 AST 25 ALT 14 Alkaline Phosphatase 85 Total Protein 6.1 L Albumin 3.3 L Assessment and Plan (1) Colon cancer metastasized to liver: Status: Chronic Plan d11, 60yo M with 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, PE on apixaban, HTN, GERD, anxiety sent in from Oncology Clinic with concern for bowel obstruction in setting of neutropenia; found to have colitis/rectal obstruction/pneumonia rectal mass w/distal colon obstruction - POD5 sigmoidoscopy + stenting by GI Dr Gregg - Gen Surg following, NGT out 03/23 and tolerating full diet since 03/23, TPN d/c 03/24 colitis pneumonia - stool studies + C diff negative, completed vancomycin + cefepime 03/16-03/23, blood cultures negative, PCT coming down, has been weaned off O2 hypoPO4 - replete IV, recheck levels tomorrow, watch for refeeding syndrome neutropenia - resolved, d/c precautions syed cruris - clotrimazole 1% cream b.i.d. HTN - amlodipine, metoprolol succinate metastatic rectosigmoid CA - [place] [facility] [place] - clonazepam, lamotrigine, risperidone ADHD - methlyphenidate hx PE - apixaban dispo - PT eval equivocal, suggesting home with PT vs acute rehab - Will get PT re-evaluation on 03/26 for disposition clarification In my clinical judgment, the patient requires continued inpatient hospitalization for the following reasons: colon obstruction, postop care, safe disposition home. Quality Stroke Does the patient have a stroke diagnosis?: No Reason for No Anti-thrombotic by Day Two: N/A - Med Ordered VTE Prior VTE?: No VTE Risk Level:: Medical - moderate - high VTE Device Contraindication: Treatment Not Indicated VTE Drug Contraindication: N/A - Med Ordered
[2025-03-26 15:00] VITALS: BP 118/78; PULSE 90; RESP 18; TEMP 36.1; O2SAT 97
[2025-03-26 19:11] VITALS: BP 108/80; PULSE 83; RESP 18; TEMP 36.1; O2SAT 97
--- NOTE | 2025-03-26 19:57 | P.CNHO_ITS ---
Subjective - Subjective Chief complaint: Consult for: 1. Metastatic colon carcinoma. 2. Small-bowel obstruction. Patient: known to practice within the last 3 years Consult date: 03/26/25 Requesting Physician: Ambar Cueto. Primary Care Provider: JIM Mendoza Family Provider: JIM Mendoza Medical Summary: DIAGNOSIS: METASTATIC COLON CARCINOMA WITH LIVER AND LUNG METS. Now admitted with small-bowel obstruction. Boilermaker'S Assistant Utilized?: No - Syriac Speaking HPI - Consult Narrative Reason for consult: Consult for: Colon carcinoma with partial bowel obstruction. 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 Patient's symptoms include nausea, vomiting, chills, extreme fatigue and 1 episode of diarrhea earlier in the day. Patient's last chemotherapy was Wednesday. Patient has started having symptoms similar to above over the weekend and was seen in the Oncology Clinic on Wednesday and received IV hydration and IV Zofran with good effect. Patient overall did not improve and was seen in the oncology clinic today. Patient has not had any recent travel were been exposed to anyone with illness. Workup in the ED included CT scan of the abdomen and pelvis and patient has clear evidence of colitis. Chest x-ray indicative of possible pneumonia as well in the left lower lobe Patient also neutropenic based on lab values and coming in with a low-grade temp with a white count of 1.1. Absolute Neutrophils 0.2. No bandemia noted. Blood pressure on arrival was 116/80 with a heart rate of 95 and a temp of a 100 degrees. Patient was not hypoxic and remained on room air with sats 94-95%. Patient was admitted for colitis and neutropenia. [facility] Medical History:) past medical history hypertension, GERD, ADHD. Port-A-Cath in place H/O sigmoidoscopy Elective surgery Marijuana smoker Chronic back pain Anxiety History of obesity Diabetes mellitus Hypertension Neoplasm of rectosigmoid junction Cognitive capacity: Alert and orientated x3 Functional capacity: wheelchair bound. Surgical History: History of flexible sigmoidoscopy (~12/14/23) H/O oral surgery No pertinent past surgical history Family History: Other Family history unknown Social History:) Household Members: Spouse Patient Tobacco Use Status: Never used Tobacco Smoked in Last 30 Days: No Use of substances other than those prescribed or required for medical reasons: Yes Substance Use Type: Marijuana Advance Directives: Yes Advance Directives on File: Yes. Review of Systems: Patient is awake alert and oriented. He denies fatigue but feels some malaise. No fever chills or night sweats. Denies headache no dizziness. No chest pain or shortness of breath. He denies any distention of his belly, no abdominal pain. Denies nausea nor vomiting.Patient is not having any difficulty swallowing. He denies diarrhea, nor blood in the stools. No urinary discomfort. He has no edema or lower leg pain. He is in good spirits. All other systems are reviewed and are negative Review of Systems - Constitutional Reports system reviewed and no additional complaints, except as documented, Reports weight loss, Denies fatigue, Denies fever(s), Denies headache(s), Denies poor appetite, Denies weakness - Eyes Reports system reviewed and no additional complaints, except as documented - ENT Reports system reviewed and no additional complaints, except as documented - Cardiovascular Reports system reviewed and no additional complaints, except as documented - Respiratory Reports no additional respiratory complaints - Gastrointestinal Reports system reviewed and no additional complaints, except as documented - Genitourinary Genitourinary: Reports no additional male genitourinary complaints - Musculoskeletal Reports system reviewed and no additional complaints, except as documented - Integumentary/Breasts Skin/Breast: Reports no additional skin complaints - Neurologic Reports weakness - Psychiatric Reports system reviewed and no additional complaints, except as documented - Endocrine Reports no additional endocrine complaints - Hematologic/Lymphatic Reports system reviewed and no additional complaints, except as documented - Allergic/Immunologic Reports system reviewed and no additional complaints, except as documented Oncology Screenings - ECOG Performance Status ECOG Performance Status: 2 [facility] Medical History: Medical History (Last Updated 03/19/25 @ 15:49 by Shay Haro MD) Abdominal distention Anxiety Chronic back pain Diabetes mellitus Elective surgery H/O sigmoidoscopy History of obesity Hypertension Marijuana smoker Neoplasm of rectosigmoid junction Port-A-Cath in place Functional capacity: wheelchair bound Patient : No Family History: Family History (Last Reviewed 03/19/25 @ 15:48 by Shay Haro MD) Other Family history unknown Surgical History: Surgical History (Last Reviewed 03/19/25 @ 15:48 by Shay Haro MD) H/O oral surgery History of flexible sigmoidoscopy Onset Date: ~12/14/23 No pertinent past surgical history Social History: Social History (Last Reviewed 03/19/25 @ 15:48 by Shay Haro MD) Living Situation History: Household Members: Spouse Housing: House Are you a primary sub acute care nurse to a significant other at home: No Do you presently have visiting nurse or other home services: No Tobacco History: Patient Tobacco Use Status: Never used Tobacco Substance Use History: Substance Use Type: Marijuana Advance Directives: Advance Directives Date on File: 03/13/24 Occupation Assessmet: service: No Current occupational status: disabled - Travel History Ebola Risk: Travel/Contact With Anyone From Affected Area/s: No Has Patient Experienced Ebola Symptoms: No Home Medications and Allergies Current Medications: Current Medications Acetaminophen (Acetaminophen 325 Mg Tablet) 650 mg PO Q6H PRN PRN Reason: Pain, Mild 1-3,fever,headache Last Admin: 03/25/25 16:09 Dose: 650 mg Amlodipine Besylate (Amlodipine Besylate 5 Mg Tablet) 5 mg PO BEDTIME [facility]; Protocol Last Admin: 03/25/25 19:19 Dose: 5 mg Apixaban (Apixaban 5 Mg Tablet) 5 mg PO BID@0500,1700 [facility] Last Admin: 03/26/25 16:36 Dose: 5 mg Calcium Carbonate (Calcium Carbonate 750 Mg Tab.Chew) 750 mg PO Q4H PRN PRN Reason: Heartburn Clotrimazole (Clotrimazole 1 % Cream 15 Gm Tube) 1 appl TOPICAL BID [facility]; Protocol Last Admin: 03/26/25 10:05 Dose: 1 appl Diazepam (Diazepam 10 Mg/2 Ml Cartridge) 10 mg IVPUSH Q6H PRN PRN Reason: Anxiety Last Admin: 03/20/25 06:03 Dose: 10 mg Hydroxyzine HCl (Hydroxyzine Hcl 25 Mg Tablet) 25 mg PO TID PRN PRN Reason: Itching Lamotrigine (Lamotrigine 100 Mg Tablet) 250 mg PO DAILY RACHEL Last Admin: 03/26/25 10:03 Dose: 250 mg Magnesium Hydroxide (Milk Of Magnesia 30 Ml Oral.Susp) 30 ml PO DAILY PRN PRN Reason: Constipation Magnesium Oxide (Magnesium Oxide 400 Mg Tablet) 400 mg PO DAILY [facility] Last Admin: 03/26/25 10:03 Dose: 400 mg Melatonin (Melatonin 3 Mg Tablet) 6 mg PO BEDTIME PRN PRN Reason: Insomnia Methylphenidate HCl (Methylphenidate Hcl 10 Mg Tablet) 10 mg PO DAILY [facility] Last Admin: 03/26/25 10:04 Dose: 10 mg Metoprolol Succinate (Metoprolol Succinate Er 50 Mg Tab.Er.24h) 50 mg PO DAILY [facility]; Protocol Last Admin: 03/26/25 10:03 Dose: 50 mg Morphine Sulfate (Morphine Sulfate 4 Mg/Ml Cartridge) 4 mg IVPUSH Q4H PRN; Protocol PRN Reason: Pain, Severe (Pain Scale 7-10) Naloxone HCl (Naloxone Hcl 0.4 Mg/Ml Vial) 0.04 mg IVPUSH Q5M PRN PRN Reason: Excessive sedation or RR < 8 Naloxone HCl (Naloxone Hcl 0.4 Mg/Ml Vial) 0.04 mg IVPUSH Q5M PRN PRN Reason: Excessive sedation or RR < 8 Patient Own ( Methylphenidate Hcl Extended R 54 Mg) 54 mg PO DAILY [facility] Last Admin: 03/26/25 10:12 Dose: 54 mg Omeprazole (Omeprazole 20 Mg Capsule.Dr) 20 mg PO BEDTIME [facility] Last Admin: 03/25/25 19:18 Dose: 20 mg Ondansetron HCl (Ondansetron Hcl 4 Mg/2 Ml Vial) 4 mg IVPUSH Q8H PRN PRN Reason: Nausea and Vomiting Oxycodone HCl (Oxycodone Hcl Immed Release 5 Mg Tablet) 5 mg PO Q4H PRN PRN Reason: Pain, Moderate(Pain Scale 4-6) Pharmacy Consult (Consult Rx Parenteral Nutrition Ordering) 1 each MISCELLANE DAILY PRN PRN Reason: Consult order Polyethylene Glycol (Polyethylene Glycol 3350 17 Gm Powd.Pack) 17 gm PO DAILY PRN PRN Reason: Constipation Potassium Chloride (Potassium Chloride Er 10 Meq Tablet.Er) 20 meq PO DAILY [facility] Last Admin: 03/26/25 10:04 Dose: 20 meq Risperidone (Risperidone 1 Mg Tablet) 1 mg PO BEDTIME [facility] Last Admin: 03/25/25 19:19 Dose: 1 mg Senna (Sennosides 8.6 Mg Tablet) 17.2 mg PO BEDTIME [facility] Last Admin: 03/25/25 19:18 Dose: Not Given Simethicone (Simethicone 80 Mg Tab.Chew) 80 mg PO BID PRN PRN Reason: Abdominal bloating Sodium Chloride (0.9 % Sodium Chloride Flush 3 Ml Syringe) 3 ml IVFLUSH QSHIFT [facility] Last Admin: 03/26/25 16:38 Dose: 3 ml Home Medications ?Medication ?Instructions ?Recorded ?Confirmed ?Type amlodipine 5 mg tablet 5 mg PO BEDTIME 12/09/23 03/16/25 Histor y clonazepam 1 mg tablet 1 mg PO BEDTIME PRN Anxiety 12/09/23 History lamotrigine 200 mg tablet 300 mg PO DAILY 12/09/23 03/16/25 Histor y methylphenidate HCl 10 mg tablet 10 mg PO DAILY 12/09/23 03/16/25 History methylphenidate HCl 54 mg 54 mg PO DAILY 12/09/23 03/16/25 History tablet,extended release 24 hr metoprolol succinate 50 mg 50 mg PO DAILY 12/09/23 03/16/25 History tablet,extended release 24 hr risperidone 1 mg tablet (Risperdal) 1 mg PO BEDTIME 12/09/23 03/16/25 Histor y apixaban 5 mg tablet (Eliquis) 5 mg PO BID@0500,1700 03/16/25 03/16/25 History barium sulfate 2 % (w/v) oral 450 ml PO BID PRN cat scan 03/16/2502/24 History suspension (Readi-Cat 2) dexamethasone 4 mg tablet 4 mg PO WETH with chemotherapy 03/16/25 03/16/25 History omeprazole 20 mg capsule,delayed 20 mg PO BEDTIME 03/16/25 03/16/25 Histo ry release ondansetron 8 mg disintegrating 8 mg PO Q8H PRN Nausea And Vomiting 02/2403/16/25 History tablet Allergies Allergy/AdvReac Type Severity Reaction Status Date / Time No Known Allergies (No Known Allergy Verified 03/16/25 14:41 Allergies*) Physical Exam Vital signs: Vital Signs Temp 96.9 F 03/26/25 19:11 Pulse 83 03/26/25 19:11 Resp 18 03/26/25 19:11 BP 108/80 03/26/25 19:11 Pulse Ox 97 03/26/25 19:11 O2 Del Method Nasal Cannula 03/26/25 19:11 O2 Flow Rate 2 03/26/25 19:11 Intake & Output 03/26/25 03/26/25 03/27/25 06:59 18:59 06:59 Intake Total 360 / 1080 300 / 300 Output Total 800 / 800 600 / 600 Balance -440 / 280 300 / -300 -600 / -300 Urine Output (Average ml/kg/hr) 0.75 0.75 0.56 Intake: Intake, Oral Amount 360 / 1080 300 / 300 Output: Output, Urine Amount 800 / 800 600 / 600 Other: Meal Refused No NPO No Breakfast % Eaten 0% Lunch % Eaten 25% Dinner % Eaten 0% Eating (Feeding) Ability Independent Independent Number of Unmeasured Voids 2 Number of Bowel Movements 1 Urine Bathroom Bathroom Urine Color Pale Yellow Yellow Last Bowel Movement 03/25/25 03/26/25 Stool Bathroom Bathroom Stool Amount Moderate Large Stool Color Dark Brown Brown Stool Consistency Liquid Weight 89.4 kg Weight 89.4 kg - Constitutional Present: no acute distress - Routine HEENT Exam Head: Present: normal inspection, normocephalic ENT: Present: mucous membranes moist - Routine Neck Exam Present: supple - Routine Abdominal Exam Present: nontender. Absent: tenderness - Routine Extremities Exam Present: nontender - Routine Skin Exam Present: intact Hem/Onc Consult Result - Labs CBC & Chem 7: 03/22/25 06:27 03/28/25 05:12 Labs: BMP 03/26/25 05:51 Sodium 138 Potassium 4.1 Chloride 104 Carbon Dioxide 23 BUN 7 L Creatinine 0.55 Calcium 8.4 Liver Function 03/26/25 Range/Units 05:51 Total Bilirubin 0.6 (0.0-1.0) mg/dL AST 25 (5-37) U/L ALT 14 (0-40) U/L Alkaline Phosphatase 85 (39-117) U/L Albumin 3.3 L (3.5-5.0) g/dL Assessment and Plan Patient Active problem list reviewed?: Yes (1) Colon cancer metastasized to liver Status: Chronic Assessment and plan: This is a pleasant 60 year-old gentleman, who presented in November, with weight loss and diarrhea. He had symptom onset 8 months prior, when he started losing his appetite. He had progressivey weight loss, about 15 lb every 3 months. He initially had constipation then had loose bowels. He denied any abdominal pain symptoms. CT scan of the abdomen pelvis from 12/07/23 revealed: 1. Masslike wall thickening of the rectosigmoid junction involving approximately 8 cm segment measuring up to 2.3 cm in thickness. Findings compatible with a primary colon carcinoma. 2. Multiple enlarged distal pericolonic and perirectal lymph nodes measuring up to 1.6 cm on the right. Additional enlarged upper abdominal lymph nodes. Findings compatible with metastatic disease. 3. Innumerable lesions throughout the liver, largest in segment 7 near the dome measuring approximately 5 cm times 5 cm. 4. 9 mm nodule to the left lower lo. Findings concerning be for metastatic disease. He underwent a flexible sigmoidoscopy on 12/14/[address] Haro. This revealed: Digital rectal exam there was a palpable bulky mass in the distal rectum. At about 5 cm there was note dated a bulky circumferential and friable mass. He was able to advance the scope through. The mass seemed to extend from about 5 cm to 12 cm. 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 CEA: 7.50. 10.3. He was initially started on FOLFOX and Vectibix based regimen on 01/01/2024. He had 6th cycle on 03/28. He then had a reaction to oxaliplatin and ended up in the ED. He was next started on FOLFIRI with Vectibix on 04/11. He actually responded very well to this regimen. He received cycle 16 on 03/06. Unfortunately he had a pulmonary embolism noted on 01/01. He was started on Eliquis. 03/16, he was transferred to ED from oncology for concerns of possible small bowel obstruction. 03/16/[address] SCAN SHOWED: 1. There is thickening of the wall of the rectum compatible with neoplasm, similar to the prior study. Focal luminal narrowing at the rectosigmoid junction is also similar to the prior exam. There is new colonic dilatation raising the possibility of a partial degree of obstruction at the level of the rectum. Alternatively, this may be secondary to ileus and/or an inflammatory process. 2. There is possible colitis involving a portion of the sigmoid colon. 3. Multiple low-density lesions within the liver without change. 4. Colonic dilation is likely due to obstruction from rectal cancer or neutropenic enterocolitis. He was diagnosed with colitis and pneumonia and was admitted with neutropenic bacteremia. He was seen by GI on 03/17. Recommendations were: To keep him NPO with IV fluids, analgesics, antiemetics and antibiotics. Stool for C diff: Negative. 03/18 KUB: Distal colon obstruction has progressed when compared to the previous exam due to rectal mass representing a known neoplasm. Patient underwent flexible sigmoidoscopy with stent placement on 03/[address] Gregg. Procedure note: Sigmoid Colon: inflammed, granular mucosa Rectum: Mid rectum at about 5 cm from anal verge stricture noted with surrounding erythema and friable tissue, scope was passed with gentle pressure and the proximal extent of the stricture noted. In total the stricture was about 6-7 cm in length. Clips were used to annie both ends. A biliary wire was passed and 22 mm x 9 cm stent was then directed using fluoroscopy over the wire and the scope was side by stent with the stent. Using endoscopic and fluoroscopic visualization the stent was deployed with a good margin from the distal end of the stricture and just enough away from the anal verge. GI follow-up note from 03/22: 1/ ileus and bowel mass s/p stenting, appears to be improving, K still a little low. 1/ advance diet as tolerated. 2/ max K and mag, lytes. He is feeling significantly better. Feels a bit of malaise but otherwise, stronger. He did well with physical therapy today, was able to walk in the hallway. Discussed his condition with him and his . The feels comfortable bringing him home. PLAN: He should be able to go home tomorrow with visiting nurses support. [facility]erral [facility] already been made to [facility] He will return to Oncology, as scheduled. Thank you for the consult, I will follow along with you, CC: Roselia Bahena. - Time Spent With Patient Time Spent with Patient (in minutes): 30
[2025-03-27 03:32] VITALS: BP 110/81; PULSE 82; RESP 18; TEMP 36.1; O2SAT 96
[2025-03-27 05:29] VITALS: BMI 25.4
[2025-03-27 06:57] LABS: Alanine Aminotransferase 13 U/L (0-40); Albumin Level 3.5 g/dL (3.5-5.0); Alkaline Phosphatase 92 U/L (39-117); Anion Gap 13 (12-20); Aspartate Amino Transferase 23 U/L (5-37); Blood Urea Nitrogen 10 mg/dL (9-16); Calcium 8.5 mg/dL (8.4-10.2); Carbon Dioxide 27 mmol/L (22-29); Chloride 101 mmol/L (96-108); Creatinine Clr Calc Pharmacy 136.6; Estimated Glomerular Filt Rate > 60; Magnesium 2.0 mg/dL (1.6-2.6); Potassium 3.6 mmol/L (3.3-5.1); Sodium 137 mmol/L (135-145); Total Protein 6.5 g/dL (6.5-8.0)
[2025-03-27 07:53] VITALS: BP 120/79; PULSE 88; RESP 16; TEMP 36.2; O2SAT 97
[2025-03-27] MEDS: Metoprolol Succinate ER 50 MG TAB.ER.24H PO (08:43)
[2025-03-27] MEDS: METHYLPHENIDATE 54 EACH PO (08:44)
[2025-03-27] MEDS: Potassium Chloride ER 10 MEQ TABLET.ER 20 MEQ PO (08:44)
[2025-03-27] MEDS: Clotrimazole 1 % Cream 15 GM TUBE 1 APPL TOPICAL ×2 (08:44→21:46)
[2025-03-27] MEDS: 0.9 % Sodium Chloride Flush 3 ML SYRINGE IVFLUSH ×3 (08:44→20:44)
--- NOTE | 2025-03-27 14:05 | MHC.HEMONCSW ---
I met with his Syeda in the clinic. She expressed frustration with his continued hospitalization as she felt he was well enough to go home and that the last visit with Dr. Case on the medical floor was under the impression he could go home today. She noted it was late in the afternoon and that there was still no word either way and that he has been having a lot of trouble sleeping in the hospital. She noted she and he would be willing to accept VNA and any other services that would facilitate him going home. I provided supportive feedback around this and recommended she reach out to the case loader operator about discharge planning. She thanked me for listening and indicated she would do this once she returned to the unit.
[2025-03-27 15:14] VITALS: BP 141/85; PULSE 104; RESP 18; TEMP 36.3; O2SAT 94
--- NOTE | 2025-03-27 17:06 | P.PNIM_ITS ---
Subjective Subjective Date of Service: 03/27/25 Interval History: Seen on evaluation today. No new complaints, and eager to be discharged. The patient is on 2 L NC, with SpO2 of 94%. Off nasal cannula, the patient's oxygen saturation decreases to 88%, with notable Peripheral cyanosis. The patient denies retrosternal chest pain, palpitations, dizziness, diaphoresis. Denies shortness of breath at rest or on mobilization; reports he feels winded. He is eager to be discharged today, however after consultation, shared decision making; patient will remain overnight, for plan discharge tomorrow post workup for hypoxia. Review of Systems Review of Systems: Yes all other systems are reviewed and are negative Physical Exam 2 Exam: Exam: General: A&O x3, oriented to time place person and situation, comfortable, no pain Cardiac: S1, S2 auscultated with no S3/4, no MRG. Well perfused. Respiratory: Decreased breath sounds bibasilarly on evaluation. NC [address] No tachypnea, tripoding, wheezing. GI/ : No abdominal pain on palpation, no masses or distentions. MSK: Normal ambulation without pain at bony prominences or musculature Neurological: Normal neurological examination on overview, without obvious CN II-XII abnormalities. Vital Signs: Vital Signs: Last Vital Signs Temp 97.3 F 03/27/25 15:14 Pulse 104 H 03/27/25 15:14 Resp 18 03/27/25 15:14 BP 141/85 H 03/27/25 15:14 Pulse Ox 94 03/27/25 15:14 O2 Del Method Room Air 03/27/25 15:14 O2 Flow Rate 2 03/27/25 03:32 BMI result Body Mass Index 25.4 Objective Data Active Medications Acetaminophen (Acetaminophen 325 Mg Tablet) 650 mg PO Q6H PRN PRN Reason: Pain, Mild 1-3,fever,headache Last Admin: 03/25/25 16:09 Dose: 650 mg Documented By: GANGA Amlodipine Besylate (Amlodipine Besylate 5 Mg Tablet) 5 mg PO BEDTIME [facility]; Protocol Last Admin: 03/26/25 20:07 Dose: 5 mg Documented By: ANGELINA Apixaban (Apixaban 5 Mg Tablet) 5 mg PO BID@0500,1700 [facility] Last Admin: 03/27/25 16:43 Dose: 5 mg Documented By: KARTHIKEYAN Calcium Carbonate (Calcium Carbonate 750 Mg Tab.Chew) 750 mg PO Q4H PRN PRN Reason: Heartburn Last Admin: 03/27/25 15:35 Dose: 750 mg Documented By: KARTHIKEYAN Clotrimazole (Clotrimazole 1 % Cream 15 Gm Tube) 1 appl TOPICAL BID [facility]; Protocol Last Admin: 03/27/25 08:44 Dose: 1 appl Documented By: KARTHIKEYAN Diazepam (Diazepam 10 Mg/2 Ml Cartridge) 10 mg IVPUSH Q6H PRN PRN Reason: Anxiety Last Admin: 03/16/25 20:15 Dose: 10 mg Documented By: TESFAYE Hydroxyzine HCl (Hydroxyzine Hcl 25 Mg Tablet) 25 mg PO TID PRN PRN Reason: Itching Lamotrigine (Lamotrigine 100 Mg Tablet) 250 mg PO DAILY [facility] Last Admin: 03/27/25 08:43 Dose: 250 mg Documented By: KARTHIKEYAN Magnesium Hydroxide (Milk Of Magnesia 30 Ml Oral.Susp) 30 ml PO DAILY PRN PRN Reason: Constipation Magnesium Oxide (Magnesium Oxide 400 Mg Tablet) 400 mg PO DAILY [facility] Last Admin: 03/27/25 08:44 Dose: 400 mg Documented By: KARTHIKEYAN Melatonin (Melatonin 3 Mg Tablet) 6 mg PO BEDTIME PRN PRN Reason: Insomnia Methylphenidate HCl (Methylphenidate Hcl 10 Mg Tablet) 10 mg PO DAILY [facility] Last Admin: 03/27/25 08:44 Dose: 10 mg Documented By: KARTHIKEYAN Metoprolol Succinate (Metoprolol Succinate Er 50 Mg Tab.Er.24h) 50 mg PO DAILY [facility]; Protocol Last Admin: 03/27/25 08:43 Dose: 50 mg Documented By: KARTHIKEYAN Morphine Sulfate (Morphine Sulfate 4 Mg/Ml Cartridge) 4 mg IVPUSH Q4H PRN; Protocol PRN Reason: Pain, Severe (Pain Scale 7-10) Naloxone HCl (Naloxone Hcl 0.4 Mg/Ml Vial) 0.04 mg IVPUSH Q5M PRN PRN Reason: Excessive sedation or RR < 8 Naloxone HCl (Naloxone Hcl 0.4 Mg/Ml Vial) 0.04 mg IVPUSH Q5M PRN PRN Reason: Excessive sedation or RR < 8 Patient Own ( Methylphenidate Hcl Extended R 54 Mg) 54 mg PO DAILY [facility] Last Admin: 03/27/25 08:44 Dose: 54 mg Documented By: KARTHIKEYAN Omeprazole (Omeprazole 20 Mg Capsule.) 20 mg PO BEDTIME [facility] Last Admin: 03/26/25 20:07 Dose: 20 mg Documented By: ANGELINA Ondansetron HCl (Ondansetron Hcl 4 Mg/2 Ml Vial) 4 mg IVPUSH Q8H PRN PRN Reason: Nausea and Vomiting Last Admin: 03/26/25 21:55 Dose: 4 mg Documented By: ANGELINA Oxycodone HCl (Oxycodone Hcl Immed Release 5 Mg Tablet) 5 mg PO Q4H PRN PRN Reason: Pain, Moderate(Pain Scale 4-6) Pharmacy Consult (Consult Rx Parenteral Nutrition Ordering) 1 each MISCELLANE DAILY PRN PRN Reason: Consult order Polyethylene Glycol (Polyethylene Glycol 3350 17 Gm Powd.Pack) 17 gm PO DAILY PRN PRN Reason: Constipation Potassium Chloride (Potassium Chloride Er 10 Meq Tablet.Er) 20 meq PO DAILY [facility] Last Admin: 03/27/25 08:44 Dose: 20 meq Documented By: KARTHIKEYAN Risperidone (Risperidone 1 Mg Tablet) 1 mg PO BEDTIME [facility] Last Admin: 03/26/25 20:08 Dose: 1 mg Documented By: ANGELINA Senna (Sennosides 8.6 Mg Tablet) 17.2 mg PO BEDTIME [facility] Last Admin: 03/26/25 20:09 Dose: Not Given Documented By: ANGELINA Non-Admin Reason: Patient Refused Simethicone (Simethicone 80 Mg Tab.Chew) 80 mg PO BID PRN PRN Reason: Abdominal bloating Sodium Chloride (0.9 % Sodium Chloride Flush 3 Ml Syringe) 3 ml IVFLUSH QSHIFT [facility] Last Admin: 03/27/25 16:43 Dose: 3 ml Documented By: KARTHIKEYAN Labs 03/22/25 06:27 03/27/25 05:29 Labs: Laboratory Results - last 24 hr 03/27/25 05:29 Hold Purple Top SEE NOTE Anion Gap 13 Estim Creat Clear Calc 136.6 Estimated GFR > 60 Random Glucose 82 Calcium 8.5 Magnesium 2.0 Total Bilirubin 0.7 AST 23 ALT 13 Alkaline Phosphatase 92 Total Protein 6.5 Albumin 3.5 Assessment and Plan (1) Neutropenia with fever: Status: Acute (2) Colon cancer metastasized to liver: Status: Chronic (3) Neoplasm of rectosigmoid junction: Status: Acute (4) Pneumonia: Status: Acute (5) Hypoxia: Status: Acute Plan d11, 60yo M with 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 Admission c/b hypoxia on 2 L NC. Hypoxia Pneumonia Patient is noted to be hypoxic 88-92% room air, improving to 94-96 to L NC. The patient denies any active symptomology. He endorses fatigue, which is expected given prolonged hospitalization. PLAN - portable CXR - BMP - BNP rectal mass w/distal colon obstruction - POD5 sigmoidoscopy + stenting by GI Dr Gregg - Gen Surg following, NGT out 03/23 and tolerating full diet since 03/23, TPN d/c 03/24 colitis pneumonia - stool studies + C diff negative, completed vancomycin + cefepime 03/16-03/23, blood cultures negative, PCT coming down, has been weaned off O2 hypoPO4 - replete IV, recheck levels tomorrow, watch for refeeding syndrome neutropenia - resolved, d/c precautions syed cruris - clotrimazole 1% cream b.i.d. HTN - amlodipine, metoprolol succinate metastatic rectosigmoid CA - [place] [facility] [place] - clonazepam, lamotrigine, risperidone ADHD - methlyphenidate hx PE - apixaban dispo - PT eval equivocal, suggesting home with PT vs acute rehab - Will get PT re-evaluation on 03/26 for disposition clarification In my clinical judgment, the patient requires continued inpatient hospitalization for the following reasons: colon obstruction, postop care, safe disposition home. Total time managing care of this patient today: 35 minutes. Quality Stroke Does the patient have a stroke diagnosis?: No Reason for No Anti-thrombotic by Day Two: N/A - Med Ordered VTE Prior VTE?: No VTE Risk Level:: Medical - moderate - high VTE Device Contraindication: Treatment Not Indicated VTE Drug Contraindication: N/A - Med Ordered
[2025-03-27] MEDS: diazePAM 10 MG/2 ML CARTRIDGE IVPUSH (17:23)
[2025-03-27 19:05] VITALS: BP 123/80; PULSE 84; RESP 18; TEMP 36.5; O2SAT 99
[2025-03-27] MEDS: oxyCODONE HCl Immed Release 5 MG TABLET PO (20:43)
[2025-03-28 03:42] VITALS: BP 102/80; PULSE 77; RESP 14; TEMP 36.2; O2SAT 99
[2025-03-28 06:00] VITALS: BMI 25.9
[2025-03-28 06:13] LABS: Alanine Aminotransferase 9 U/L (0-40); Albumin Level 3.3 g/dL (3.5-5.0); Alkaline Phosphatase 83 U/L (39-117); Anion Gap 13 (12-20); Aspartate Amino Transferase 21 U/L (5-37); Blood Urea Nitrogen 14 mg/dL (9-16); Calcium 8.4 mg/dL (8.4-10.2); Carbon Dioxide 26 mmol/L (22-29); Chloride 102 mmol/L (96-108); Creatinine Clr Calc Pharmacy 147.8; Estimated Glomerular Filt Rate > 60; Magnesium 1.9 mg/dL (1.6-2.6); Potassium 4.0 mmol/L (3.3-5.1); Sodium 137 mmol/L (135-145); Total Protein 6.1 g/dL (6.5-8.0)
[2025-03-28 07:13] VITALS: BP 139/82; PULSE 81; RESP 16; TEMP 36.2; O2SAT 98
[2025-03-28 08:14] VITALS: PULSE 104; PULSE 81; PULSE 98; O2SAT 88; O2SAT 90; O2SAT 98
[2025-03-28] MEDS: Metoprolol Succinate ER 50 MG TAB.ER.24H PO (08:39)
[2025-03-28] MEDS: Potassium Chloride ER 10 MEQ TABLET.ER 20 MEQ PO (08:39)
[2025-03-28] MEDS: Clotrimazole 1 % Cream 15 GM TUBE 1 APPL TOPICAL (08:40)
[2025-03-28] MEDS: 0.9 % Sodium Chloride Flush 3 ML SYRINGE IVFLUSH (08:42)
--- NOTE | 2025-03-28 10:00 | MHC.CLN ---
F/U DIET=REGULAR. ENSURE TID TO PROMOTE NUTRITIONAL INTAKE. SUPPLEMENT PROVIDES 1050 KCALS, 60 G PROTEIN. AVERAGE INTAKE APPROX 50%. FOLLOW FOR PO INTAKE.
[2025-03-28] MEDS: METHYLPHENIDATE 54 EACH PO (10:20)
--- NOTE | 2025-03-28 12:29 | P.DS_ITS ---
DS: Providers Provider Date of Service: 03/28/25 Date of admission: 03/16/25 18:31 Date of discharge: 03/28/25 Primary care physician: JIM Mendoza Admitting clinician: Antonio Joseph Consults: 03/16/25 19:13 Consult to Gastroenterology Routine Consulting Provider: Jesica Cruz Reason for consultation: colitis on chemotherapy with rectal mass Has provider been notified: No 03/18/25 07:59 Consult to Wound Care Routine Reason for consultation: redness to bilateral buttocks 03/19/25 16:47 Consult to General Surgery [place]ine [place] [facility] [place] [facility] Reason for consultation: ? sbo Attending physician on discharge: Antonio Joseph DS: Diagnosis Discharge Diagnosis (1) Neutropenia with fever: Status: Acute (2) Colon cancer metastasized to liver: Status: Chronic (3) Neoplasm of rectosigmoid junction: Status: Acute (4) Pneumonia: Status: Acute (5) Hypoxia: Status: Acute DS: Summary Hospital Course Hospital Course: As per H&P: Patient is a 60-year-old male with past medical history hypertension, GERD, ADHD, stage IV rectosigmoid cancer with metastases to kidney, liver and lungs currently undergoing [place] [facility] [place], PE on Eliquis, anxiety, marijuana use presents to the emergency department from his oncology visit for concerns of possible small bowel obstruction. Patient's symptoms include nausea, vomiting, chills, extreme fatigue and 1 episode of diarrhea earlier in the day. Patient's last chemotherapy was Wednesday. Patient has started having symptoms similar to above over the weekend and was seen in the Oncology Clinic on Wednesday and received IV hydration and IV Zofran with good effect. Patient overall did not improve and was seen in the oncology clinic today. Patient has not had any recent travel were been exposed to anyone with illness. Workup in the ED included CT scan of the abdomen and pelvis and patient has clear evidence of colitis. Chest x-ray indicative of possible pneumonia as well in the left lower lobe Patient also neutropenic based on lab values and coming in with a low-grade temp with a white count of 1.1. Absolute Neutrophils 0.2. No bandemia noted. Blood pressure on arrival was 116/80 with a heart rate of 95 and a temp of a 100 degrees. Patient was never hypoxic and has remained on room air with sats 94-95%. Patient being admitted for colitis and neutropenia. Sigmoidoscopy s/p Colonic stent placed 03/20/25 without complication with improvement in abdominal distention. Apixaban was resumed for history of PE. 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 Admission c/b hypoxia on 2 L NC secondary noted to be platypnoea in the setting of persistent ileus. Deemed stable for discharge home with outpatient supports. Status at Discharge Functional status at discharge: independent ambulation Overall status at discharge: patient is back to baseline Time Attestation Total time managing care of this patient today: 45 mintues. Discharge Coordination Time (in mins): 30 Quality: Safe Use of Opioids Does Pt have an Active Cancer Diagnosis on the Problem List?: No Quality: Stroke Does the patient have a stroke diagnosis?: No Physical Exam Exam: Exam: General: A&O x3, oriented to time place person and situation, comfortable, no pain Cardiac: S1, S2 auscultated with no S3/4, no MRG. Well perfused. Respiratory: Decreased breath sounds bibasilarly on evaluation. No tachypnea, tripoding, wheezing. GI/ : No abdominal pain on palpation, no masses or distentions. MSK: Normal ambulation without pain at bony prominences or musculature. port noted in right subclavicular space. Neurological: Normal neurological examination on overview, without obvious CN II-XII abnormalities. Vital Signs: Vital Signs: Last Vital Signs Temp 97.1 F 03/28/25 07:13 Pulse 81 03/28/25 07:13 Resp 16 03/28/25 07:13 BP 139/82 03/28/25 07:13 Pulse Ox 98 03/28/25 07:13 O2 Del Method Nasal Cannula 03/28/25 07:13 O2 Flow Rate 2 03/28/25 07:13 BMI result Body Mass Index 25.9 DS: Data Data Completed and Pending Labs on day of discharge: Laboratory Results - last 24 hr 03/28/25 05:12 Hold Purple Top SEE NOTE Sodium 137 Potassium 4.0 Chloride 102 Carbon Dioxide 26 Anion Gap 13 BUN 14 Creatinine 0.61 Estim Creat Clear Calc 147.8 Estimated GFR > 60 Random Glucose 74 Calcium 8.4 Magnesium 1.9 Total Bilirubin 0.6 AST 21 ALT 9 Alkaline Phosphatase 83 Total Protein 6.1 L Albumin 3.3 L Discharge Plan Discharge Anticipated Discharge Date/Time: 03/28/25 12:58 Patient Disposition: Home Health Service Discharge Diagnosis: bowel obstruction in setting of neutropenia; found to have colitis/rectal obstruction s/p sigmoidoscopy with colonic stenting & superimposed pneumonia with hypoxia Referrals: [facility] [Outside] - 1 Week Referral Note: Roselia Bahena PA [Primary Care Provider, Internal Medicine] - 1 Week Discharge Medications: New sennosides [Senna Lax] 8.6 mg Tablet 17.2 mg PO BEDTIME 30 Days Qty: 60 2RF Continued omeprazole 20 mg capsule,delayed release(DR/EC) 20 mg PO BEDTIME ondansetron 8 mg tablet,disintegrating 8 mg PO Q8H PRN (Reason: Nausea And Vomiting) dexamethasone 4 mg tablet 4 mg PO WETH Rx Instructions: Take 4 mg po BID, days 2 & 3 of chemotherapy, q 2 weekly. Pt gets chemo Tuesdays. Eliquis 5 mg tablet 5 mg PO BID@0500,1700 Readi-Cat 2 2 % (w/v) suspension 450 ml PO BID PRN (Reason: cat scan ) Rx Instructions: Take 450 ml 3 hours before cat scan Take 450 ml 1 hour before cat scan magnesium oxide 400 mg magnesium Capsule 400 mg PO DAILY Qty: 30 3RF hydroxyzine HCl 25 mg Tablet 25 mg PO TID PRN (Reason: Itching ) Qty: 30 0RF potassium chloride 10 mEq Capsule, Extended Release 20 meq PO DAILY Qty: 90 1RF simethicone 80 mg Tablet,Chewable 80 mg PO BID PRN (Reason: Abdominal bloating) Qty: 30 2RF diphenoxylate-atropine [Lomotil] 2.5-0.025 mg Tablet 1 tab PO DAILY PRN (Reason: Diarrhea) Qty: 30 0RF clonazepam 1 mg tablet 1 mg PO BEDTIME PRN (Reason: Anxiety) lamotrigine 200 mg tablet 300 mg PO DAILY methylphenidate HCl 54 mg tablet extended release 24hr 54 mg PO DAILY methylphenidate HCl 10 mg tablet 10 mg PO DAILY metoprolol succinate 50 mg tablet extended release 24 hr 50 mg PO DAILY amlodipine 5 mg tablet 5 mg PO BEDTIME risperidone [Risperdal] 1 mg tablet 1 mg PO BEDTIME Discharge Orders: Discharge Order (Routine); Ordered 03/28/25 Ordered By: Antonio Joseph Diet: Advance to usual diet Activity on Discharge: As tolerated Stand Alone Forms: Patient Portal Discharge page Print Language: Peruvian Care Plan Goals: Follow up with Gastroenterology outpatient Follow up with Hematology/Oncology Service outpatient Follow up on home oxygen Health Concerns: As above Plan of Treatment: As above Assessment: Overall stable and back to baseline. May require nocturnal oxygen vs p.r.n. oxygen at home. Observed platypea during evaluation as inpatient, 2/2 distended abdomen/ chronic paralytic ileus. Home O2 evaluation to be conducted
--- NOTE | 2025-03-28 13:04 | P.F2F_ITS ---
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 Reasons for Services Signs and symptoms assessed: Muscle wasting noted in upper and lower extremities bilaterally, as well as distended abdomen. Patient demonstrates plateapnea, with intermittent hypoxia. Reason for usp: CV/CP assess and/or care, medication management, teach disease management and other (Home oxygen/ nocturnal oxygen) Reason for physical therapy: home safety and mobility, gait/transfer training and energy conservation Reason for occupational therapy: home safety and mobility, gait/transfer aman karri and energy conservation Homebound: Leaving the home is medically contraindicated at this time without the asist of a device and/or another person due th the listed conditions above and below. Reason homebound: unsteady gait / fall risk and weakness related to hospital stay Certification: Based on the above findings, I certify that this patient is confined to the home and needs intermittent usp care, physical therapy and/or speech therapy, or continues to need occupational therapy. The patient is under my care, and I have initiated the establishment of the plan of care. The patient will be followed by a physician who will periodically review the plan of care. Time Spent With Patient Time: Total time managing care of this patient today 35 minutes.
--- NOTE | 2025-03-28 13:16 | MHC.CM.PN ---
Patient is discharged today to home. [facility] will provide home services. All dc info has been sent to the agency. Home Oxygen Nocturnal test offered to patient and for tonight. Patient refuses to stay tonight. They will follow up with PCP to provide the script for the testing out patient for O2 at night. A messege received from Nurse Navigator, Gregoria Thomas. A return call was made to Gregoria. She has concerns about the PCP follow up. T/W spoke with the patient and his . They are frustrated and concerned about home oxygen. It was explained that the testing to qualify could be done tonight. They refuse the offer to stay and insist on discharge today. Patients spouse will provide transportation home.
[2025-03-28] MEDS: Heparin Sodium,Porcine Flush 500 UNIT/5 ML SYRINGE IVFLUSH (13:29)
== END 2025-03-28 13:47 | disposition home health service (06) | DRG 240 ==
LOC: HO.ED 18:33 → HO.EDOVER 18:38 → HO.S3 20:43
PROVIDERS: Hospitalist; Internal Medicine Gastroenterology; Nurse Practitioner Acute Care; Nurse Practitioner Family; Physician Assistant Medical; Student in an Organized Health Care Education/Training Program; Admitting Provider Family Medicine; Emergency Provider Student in an Organized Health Care Education/Training Program; PCP Physician Assistant Medical; Visit Provider Hospitalist
PROC: 0DJD8ZZ Inspection of Lower Intestinal Tract, Via Natural or Artificial Opening Endoscopic (ICD-10-PCS; CPT 45378; principal; 2025-03-20 14:00)
DX: C19 Malignant neoplasm of rectosigmoid junction (principal); J18.9 Pneumonia, unspecified organism; C78.00 Secondary malignant neoplasm of unspecified lung; C77.8 Secondary and unspecified malignant neoplasm of lymph nodes of multiple regions; D70.9 Neutropenia, unspecified; Z66 Do not resuscitate; C79.00 Secondary malignant neoplasm of unspecified kidney and renal pelvis; K52.9 Noninfective gastroenteritis and colitis, unspecified; C78.7 Secondary malignant neoplasm of liver and intrahepatic bile duct; E83.39 Other disorders of phosphorus metabolism; F90.9 Attention-deficit hyperactivity disorder, unspecified type; K56.7 Ileus, unspecified; R09.02 Hypoxemia; B35.6 Tinea cruris; I10 Essential (primary) hypertension; K21.9 Gastro-esophageal reflux disease without esophagitis; F41.9 Anxiety disorder, unspecified; E87.6 Hypokalemia; Z86.711 Personal history of pulmonary embolism; Z79.01 Long term (current) use of anticoagulants; Z79.899 Other long term (current) drug therapy
CPT/HCPCS: 36415; 71045; 74018; 74177; 80053; 80202; 81001; 82565; 83605; 83735; 83880; 84100; 84132; 84145; 84478; 85007; 85025; 85027; 86140; 87040; 87493; 87507; 93005; 97162; 97530; 99285; C1876; J0692; J1171; J1642; J2250; J2270; J2405; J3010; J3360; J3373; J3374; J3480; J8540; Q9967

== ENCOUNTER → 2025-03-16 15:46 | Outpatient (BNV) | payer OTHER, SELFPAY | PROVIDERS: Emergency Provider Student in an Organized Health Care Education/Training Program; Visit Provider Radiology Diagnostic Radiology | DX: R10.9 Unspecified abdominal pain (principal); K76.89 Other specified diseases of liver; R91.8 Other nonspecific abnormal finding of lung field; Z95.828 Presence of other vascular implants and grafts | CPT/HCPCS: 71045; 74177 ==

== ENCOUNTER 2025-03-16 18:31 | Outpatient (BNV) | payer OTHER, SELFPAY | END 2025-03-20 09:20 | PROVIDERS: Admitting Provider Family Medicine; Emergency Provider Student in an Organized Health Care Education/Training Program; PCP Physician Assistant Medical; Visit Provider Radiology Diagnostic Radiology | DX: Z46.59 Encounter for fitting and adjustment of other gastrointestinal appliance and device (principal) | CPT/HCPCS: 71045 ==

== ENCOUNTER 2025-03-16 18:31 | Outpatient (BNV) | payer OTHER, SELFPAY | END 2025-03-27 17:00 | PROVIDERS: Admitting Provider Family Medicine; Emergency Provider Student in an Organized Health Care Education/Training Program; PCP Physician Assistant Medical; Visit Provider Radiology Diagnostic Radiology | DX: J98.4 Other disorders of lung (principal) | CPT/HCPCS: 71045 ==

== ENCOUNTER 2025-03-16 18:31 | Outpatient (BNV) | payer OTHER, SELFPAY | END 2025-03-18 08:10 | PROVIDERS: Admitting Provider Family Medicine; Emergency Provider Student in an Organized Health Care Education/Training Program; Visit Provider Radiology Diagnostic Radiology | DX: R14.0 Abdominal distension (gaseous) (principal); K56.609 Unspecified intestinal obstruction, unspecified as to partial versus complete obstruction; C20 Malignant neoplasm of rectum | CPT/HCPCS: 74018 ==

== ENCOUNTER → 2025-03-16 18:31 | Outpatient (BNV) | payer OTHER, SELFPAY | PROVIDERS: Admitting Provider Family Medicine; Emergency Provider Student in an Organized Health Care Education/Training Program; PCP Physician Assistant Medical; Visit Provider Surgery | DX: C18.9 Malignant neoplasm of colon, unspecified (principal); C78.7 Secondary malignant neoplasm of liver and intrahepatic bile duct; R14.0 Abdominal distension (gaseous); K52.9 Noninfective gastroenteritis and colitis, unspecified | CPT/HCPCS: 99232 ==

== ENCOUNTER → 2025-03-16 18:31 | Outpatient (BNV) | payer OTHER, SELFPAY | PROVIDERS: Admitting Provider Family Medicine; Emergency Provider Student in an Organized Health Care Education/Training Program; PCP Physician Assistant Medical; Visit Provider Internal Medicine Gastroenterology | DX: K52.9 Noninfective gastroenteritis and colitis, unspecified (principal) | CPT/HCPCS: 99222; 99232 ==

== ENCOUNTER → 2025-03-16 18:31 | Outpatient (BNV) | payer OTHER, SELFPAY | PROVIDERS: Admitting Provider Family Medicine; Emergency Provider Student in an Organized Health Care Education/Training Program; PCP Physician Assistant Medical; Visit Provider Internal Medicine Medical Oncology | DX: C19 Malignant neoplasm of rectosigmoid junction (principal); C79.00 Secondary malignant neoplasm of unspecified kidney and renal pelvis; C78.7 Secondary malignant neoplasm of liver and intrahepatic bile duct; C78.00 Secondary malignant neoplasm of unspecified lung | CPT/HCPCS: 99222 ==

== ENCOUNTER → 2025-03-16 18:31 | Outpatient (BNV) | payer OTHER, SELFPAY | PROVIDERS: Admitting Provider Family Medicine; Emergency Provider Student in an Organized Health Care Education/Training Program; Visit Provider Nurse Practitioner Family | DX: C18.9 Malignant neoplasm of colon, unspecified (principal); C78.7 Secondary malignant neoplasm of liver and intrahepatic bile duct | CPT/HCPCS: 99232 ==

== ENCOUNTER 2025-05-17 13:03 | Emergency (ER) | payer OTHER, SELFPAY ==
--- NOTE | ~2025-05-17 | CT_ITS ---
EXAMINATION: CT ABDOMEN AND PELVIS WITH CONTRAST CLINICAL INFORMATION: abdominal pain, diarrhea, nausea, colon cancer COMPARISON: March 16, 2025 TECHNIQUE: Multidetector volumetric images were obtained from the superior aspect of the liver through the pubic symphysis following administration 85 mL of Omnipaque 350 intravenous contrast. Sagittal and coronal reformatted images were obtained on the technologist's workstation. Oral contrast: No This CT examination was performed using dose optimization techniques as appropriate, variously including the following: *Automated exposure control *Adjustment of mA and/or kV according to patient size (this includes techniques or standardized protocols for targeted exams where dose is matched to indication/reason for exam; i.e. extremities or head) *Use of iterative reconstruction technique FINDINGS: LUNG BASES: Linear atelectasis and/or scarring in the left lower lobe is unchanged. LIVER, GALLBLADDER, AND BILIARY TREE: Multiple hypodensities in the right hepatic lobe are again identified and similar to the prior. Mild periportal edema is similar to the prior. Distended gallbladder is slightly more distended on the current study. No biliary ductal dilation is seen PANCREAS: Unremarkable. SPLEEN: Unremarkable. ADRENAL GLANDS: Unremarkable. KIDNEYS AND URETERS: Simple cyst in the anterior right mid kidney is unchanged. Smaller low attenuating lesions in the left kidney are too small to characterize but probably simple cysts. These also appears similar to the prior. BLADDER: Unremarkable. GASTROINTESTINAL TRACT: Since prior, a stent has been placed through the anus into the rectum. The proximal end of the stent is surrounded by gas and stool. There is fluid and gas throughout the small and large bowel without gross distention of small and large bowel. ABDOMINAL WALL: No significant hernia is appreciated. LYMPH NODES: Normal. VASCULAR: There is mild to moderate atherosclerotic calcifications. PELVIC VISCERA: Unremarkable. OSSEOUS STRUCTURES: Unremarkable. CT/CT abdomen pelvis w IV con IMPRESSION: A rectal stent has been placed since the prior CT. There appears to be obstruction with fluid and gas distending small and large bowel. Stable low attenuating lesions in the liver could represent treated metastatic disease or hepatic cysts. Gallbladder hydrops is mildly increased from the prior. Fleischner guidelines were followed. Electronically signed by: Juan Lipscomb MD 05/17/2025 04:34 PM EDT
[2025-05-17 13:11] VITALS: BP 125/78; PULSE 77; RESP 18; TEMP 36.9; O2SAT 92; BMI 24.9
--- NOTE | 2025-05-17 13:26 | ECG_ITS ---
Test Reason : abd pain Blood Pressure : */* mmHG Vent. Rate : 76 BPM Atrial Rate : 76 BPM P-R Int : 208 ms QRS Dur : 100 ms QT Int : 392 ms P-R-T Axes : 51 -30 19 degrees QTcB Int : 441 ms Poor data quality, interpretation may be adversely affected Normal sinus rhythm Left axis deviation Possible Inferior infarct (cited on or before 28-Mar-2024) Possible Anterolateral infarct (cited on or before 28-Mar-2024) Abnormal ECG When compared with ECG of 20-Mar-2025 09:03, Questionable change in initial forces of Anterolateral leads Questionable change in initial forces of Inferior leads T wave inversion now evident in Anterior leads Referred By: Mell Stewart Electronically Signed By: VERO JORDAN MD
--- NOTE | 2025-05-17 13:54 | ED.ABDPAIN ---
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 He has a hx of sigmoidoscopy as well with colonic stent 02/28/25 - he went to the office today and reported distention, pain, nausea, loose stools - his K was 3.1 and his WBC count was 1.6 - he denies any fevers. 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 He has had this pain for about a month but the last day it has gotten severe and he cannot tolerate it. received 10meq of K+ in oncology FAMILY PSYCHOLOGIST MD elicited complaint: abdominal pain Pertinent past history: other Onset (ago): month(s) (1 month but much worse today) Pain Consistency: constant Severity: severe Quality: aching and fullness Radiation: none Migration to: no migration Exacerbating factors: eating and movement Relieving factors: nothing Context: history of similar episodes Associated symptoms: nausea and diarrhea Related Data Home Medications ?Medication ?Instructions ?Recorded ?Confirmed amlodipine 5 mg tablet 5 mg PO BEDTIME 12/09/23 05/17/25 clonazepam 1 mg tablet 1 mg PO BEDTIME Anxiety 12/09/23 05/17/25 lamotrigine 200 mg tablet 300 mg PO DAILY 12/09/23 05/17/25 methylphenidate HCl 10 mg tablet 10 mg PO DAILY 12/09/23 05/17/25 methylphenidate HCl 54 mg 54 mg PO DAILY 12/09/23 05/17/25 tablet,extended release 24 hr metoprolol succinate 50 mg 50 mg PO DAILY 12/09/23 05/17/25 tablet,extended release 24 hr risperidone 1 mg tablet (Risperdal) 1 mg PO BEDTIME 12/09/23 05/17/25 apixaban 5 mg tablet (Eliquis) 5 mg PO BID@0500,1700 03/16/25 05/17/25 oxycodone 5 mg tablet 5 mg PO Q8H PRN Pain (Scale Score 05/17/25 05/17/25 4-6) Previous Rx's ?Medication ?Instructions ?Recorded magnesium oxide 400 mg PO DAILY #30 caps 03/13/24 hydroxyzine HCl 25 mg tablet 25 mg PO TID PRN Itching #30 tabs 10/02/24 potassium chloride 10 mEq 20 meq (2 x 10 mEq) PO DAILY #90 11/16/24 capsule,extended release caps simethicone 80 mg chewable tablet 80 mg PO BID PRN Abdominal 11/16/24 bloating #30 tabs diphenoxylate-atropine 2.5 1 tab PO DAILY PRN Diarrhea #30 02/14/25 mg-0.025 mg tablet (Lomotil) tabs sennosides 8.6 mg tablet (Senna 17.2 mg (2 x 8.6 mg) PO BEDTIME 30 03/28/25 Lax) days #60 tabs ondansetron 8 mg disintegrating 8 mg PO Q8H PRN Nausea And 04/23/25 tablet Vomiting #60 tabs Allergies Allergy/AdvReac Type Severity Reaction Status Date / Time No Known Allergies (No Known Allergy Verified 05/17/25 13:13 Allergies*) Review of Systems Review of Systems Constitutional : No Fever, No Chills ENT/Mouth : No sore throat, No Rhinorrhea Eyes: No Swelling, No Redness Cardiovascular : No Chest Pain, No SOB Respiratory : No Cough, No Sputum, No Wheezing Gastrointestinal : Positive Nausea, no Vomiting, positive Diarrhea, positive abdominal Pain, No Hematochezia, No Melena Genitourinary : No Dysuria, No Urinary Frequency, No Hematuria, No Urgency Musculoskeletal : No joint pain, No Myalgias, No Joint Swelling Skin : No Skin Lesions, No rash Neuro : No Weakness, No Numbness, No Dizziness, No Headache All other systems reviewed and are negative. [facility] Past Medical History Attestation statement: The following information was validated with the patient. Source: old records reviewed Medical History Abdominal distention Port-A-Cath in place H/O sigmoidoscopy Elective surgery Marijuana smoker Chronic back pain Anxiety History of obesity Diabetes mellitus Hypertension Neoplasm of rectosigmoid junction Surgical History History of flexible sigmoidoscopy (~12/14/23) H/O oral surgery No pertinent past surgical history Family History Family History Other Family history unknown Social History Social History Household Members: Spouse Housing: House Are you a primary child daycare worker to a significant other at home: No Do you presently have visiting nurse or other home services: No Patient Tobacco Use Status: Never used Tobacco Substance Use Type: Marijuana Advance Directives Date on File: 03/13/24 service: No Current occupational status: disabled Physical Exam ED Vital Signs: Vital Signs - 24 hr 05/17/25 13:11 05/17/25 14:00 05/17/25 18:39 Temperature 98.4 F 97.4 F Pulse Rate 77 72 69 Respiratory Rate 18 20 16 Blood Pressure 125/78 126/78 133/80 Pulse Oximetry 92 96 95 Oxygen Delivery Method Room Air Room Air Room Air BMI result Body Mass Index 24.9 Appearance: Alert. Oriented X3. appears uncomfortable mild acute distress. Eyes: Pupils equal, round and reactive to light. ENT: Pharynx dry MM Neck: Normal inspection. Neck supple. CVS: Normal heart rate and rhythm. Pulses normal. Respiratory: No respiratory distress. Breath sounds normal. Abdomen: Soft but distended I do hear hyperactive BS. Mild diffuse ttp Skin: Skin warm and dry. pale skin color. Normal skin turgor. Extremities: trace edema both ankles/lower legs Neuro: Oriented X 3. No motor deficit. No sensory deficit. CN2-12 intact Course Course Course Narrative: signed out to Dr. Tanner pending CT scan and admission. Reevaluation(s) Reevaluation #1: DR. Tanner' progress note: 60-year-old male history of colon cancer s/p stent come back with deterioration and failure to thrive, neutropenia, hypokalemia, will admit to medical service. Time: 16:55 Reevaluation #2: DR. Tanner's progress note: 60-year-old male came in with abdominal distention and pain found to be hypokalemic, GI was consulted and Dr. Anthony recommended to transfer the patient to another facility there is no capability to change the stent in this hospital, case discussed with [facility] who is closed to transfer secondary to high capacity. With the exam patient has retained urine over 800 cc Carlton catheter was ordered. Case discussed with Barbara and patient will be accepted to the ED in [place] by Dr. Sullivan. patient and spouse agreed to be transferred to . 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 He has nausea and loose stools. He has not had a fever. He was given potassium in oncology and IVF, he was sent down for GI referral for stent eval and CT scan for obstruction. No fevers but neutropenic I am going to hold antibiotics. He will be given IV dilaudid for pain control. Differential Diagnosis Differential Diagnoses: The differential diagnosis associated with the presentation includes cancer, dehydration, neutropenia, mass, obstruction Admission/Observation Consideration of admission/observation: Escalation of care including admission/observation considered Lab Data [facility] Lab Attestation statement: I reviewed the patient's lab results. 05/17/25 13:53 05/17/25 19:46 Labs: Lab Results 05/17/25 05/17/25 Range/Units 13:53 19:46 WBC 1.5 L (4.8-10.8) X10*3/uL RBC 3.63 L (4.60-5.80) X10*6/uL Hgb 10.5 L (14.0-18.0) g/dl Hct 31.6 L (42.0-52.0) % MCV 87.1 (80.0-98.0) fL MCH 28.9 (27.0-33.0) pg MCHC 33.2 (31.0-36.0) g/dl RDW 13.8 (11.0-16.0) % Plt Count 145 L (160-400) X10*3/uL MPV 9.1 L (9.4-12.4) fL Immature Gran % (Auto) 1.3 H (0.0-0.4) % Neut % (Auto) 53.6 (45-73) % Lymph % (Auto) 33.1 (20-40) % [place] % (Auto) 10.6 (2-11) % Eos % (Auto) 0.7 (0-4) % Baso % (Auto) 0.7 (0-2) % Lymph # (Auto) 0.5 L (1.2-4.9) X10*3/uL [place] # (Auto) 0.2 (0.1-1.2) X10*3/uL Eos # (Auto) 0.0 (0.0-0.4) X10*3/uL Baso # (Auto) 0.0 (0.0-0.2) X10*3/uL Abs Immat Gran (auto) 0.02 (0.00-0.03) X10*3/uL Absolute Neuts (auto) 0.8 L (2.0-8.3) x10*3/uL Absolute Nucleated RBC 0.000 (0.0-0.012) X10*3/uL Nucleated RBC % (auto) 0.0 (0.0-0.2) /100WBC Smear Tech's Comments VERIFIED Sodium 137 137 (135-145) mmol/L Potassium 2.8 L* 3.3 (3.3-5.1) mmol/L Chloride 103 104 (96-108) mmol/L Carbon Dioxide 24 20 L (22-29) mmol/L Anion Gap 13 16 (12-20) BUN 11 10 (9-16) mg/dL Creatinine 0.55 0.63 (0.5-1.4) mg/dL Estim Creat Clear Calc 163.9 143.1 Estimated GFR > 60 > 60 Random Glucose 127 H 128 H (60-115) mg/dL Lactic Acid 0.7 (0.5-2.0) mmol/L Calcium 8.3 L D 8.5 (8.4-10.2) mg/dL Magnesium 1.7 (1.6-2.6) mg/dL Total Bilirubin 1.0 1.1 H (0.0-1.0) mg/dL Direct Bilirubin 0.4 (0.0-0.5) mg/dL AST 18 20 (5-37) U/L ALT 7 8 (0-40) U/L Alkaline Phosphatase 79 79 (39-117) U/L Troponin I High Sens < 2.7 D (<3.5-35.0) ng/L C-Reactive Protein 7.27 H (< or = 0.50) mg/dL NT-Pro-B Natriuret Pep 436.9 H (<300) pg/mL Total Protein 6.5 6.8 (6.5-8.0) g/dL Albumin 3.9 3.9 (3.5-5.0) g/dL Lipase 14 (8-78) U/L Urine Color Dark Yellow Urine Appearance Clear Urine pH 6.0 (5.0-9.0) Ur Specific [place] >= 1.030 H (1.005-1.025) Urine Protein Trace (Neg-Trace) mg/dL Urine Glucose (UA) Negative (Negative) mg/dL Urine Ketones 40 (Negative) mg/dL Urine Blood Small (1+) H (Negative) Urine Nitrite Negative (Negative) Ur Leukocyte Esterase Negative (Negative) Urine RBC 6-10 H (0-2) /HPF Urine WBC 0-5 (0-5) /HPF Ur Squamous Epith Cells 0-2 (0-2) /HPF Urine Bacteria None Seen (None Seen) Hyaline Casts 0-2 (0-2) /LPF Stl C. cayetanensis PCR Not Detected (Not Detect.) Stool Rotavirus A PCR Not Detected (Not Detect.) Stl Adenov F 40/41 PCR Not Detected (Not Detect.) Stool Astrovirus (PCR) Not Detected (Not Detect.) Stool Campylobacter PCR Not Detected (Not Detect.) Stool Cryptosporidium PCR Not Detected (Not Detect.) Stl Sh Tox Pr E STEC PCR Not Detected (Not Detect.) Stool E coli O157 PCR TNP Stl Enterotoxigenic E PCR Not Detected (Not Detect.) Stool EPEC (PCR) Not Detected (Not Detect.) Stool EAEC (PCR) Not Detected (Not Detect.) Stl E. histolytica PCR Not Detected (Not Detect.) Stool Giardia Lamblia PCR Not Detected (Not Detect.) Stl P. shigelloides PCR Not Detected (Not Detect.) Stool Salmonella PCR Not Detected (Not Detect.) Stool Sapovirus (PCR) Not Detected (Not Detect.) Stl Shigella/EIEC PCR Not Detected (Not Detect.) St Y.enterocolitica PCR Not Detected (Not Detect.) Stool Vibrio (PCR) Not Detected (Not Detect.) Stl Vibrio cholerae PCR Not Detected (Not Detect.) Stl Norovirus GI/GII PCR Not Detected (Not Detect.) Independent Interpretation I performed an independent interpretation of an: EKG and CT Scan Interpretation: Rate: 76 Rhythm: NSR with 1st degree AVB Pierre: left Normal P waves. Normal KATYA. Normal QRS complex. ST T wave : no ARLETTE, diffuse flat t waves throughout qTC: 441 prior studies: no acute ischemia, hx of flat t waves in 2023 The study has been interpreted contemporaneously by me. . Radiology Impression Discussion of test interpretation with radiology: I have reviewed the radiologist's reading. Independent Historian Clinical information obtained from an independent historian. History obtained from or confirmed by: Spouse External Record Review External record reviewed: Inpatient record and Outpatient record Medications Administered Discontinued Medications Generic Name Dose Route Start Last Admin Trade Name Freq PRN Reason Stop Dose Admin Diazepam 5 mg 05/17/25 20:32 05/17/25 20:38 Diazepam 10 Mg/2 Ml Cartridge IVPUSH 05/17/25 20:33 5 mg STAT STA Administration Hydromorphone HCl 1 mg 05/17/25 13:26 05/17/25 13:41 Hydromorphone Hcl 1 Mg/Ml Syringe IVPUSH 05/17/25 13:27 1 mg ONCE ONE Administration Protocol Hydromorphone HCl 1 mg 05/17/25 16:31 05/17/25 16:40 Hydromorphone Hcl 1 Mg/Ml Syringe IVPUSH 05/17/25 16:32 1 mg ONCE ONE Administration Protocol Potassium Chloride 10 meq in 100 mls @ 100 mls/hr 05/17/25 15:00 05/17/25 20:15 Potassium Chloride/H20 IV 05/17/25 18:59 Infused Q1H RACHEL Infusion Sodium Chloride 1,000 mls @ 80 mls/hr 05/17/25 16:30 05/17/25 17:44 Ns IVCONT Infused .[id number] RACHEL Infusion Sodium Chloride 1,000 mls @ 100 mls/hr 05/17/25 17:15 05/17/25 19:46 Ns IVCONT Infused .Q10H RACHEL Infusion Iohexol 100 ml 05/17/25 16:10 05/17/25 16:10 Iohexol 350 Mg/Ml 100 Ml Infus..Btl IV 05/17/25 16:11 85 ml ONCE ONE Administration Lidocaine HCl 10 ml 05/17/25 19:12 05/17/25 19:28 Lidocaine Hcl 2 % Urojet 10 Ml Jel.Pf.Leta TOPICAL 05/17/25 19:13 10 ml ONCE ONE Administration Ondansetron HCl 4 mg 05/17/25 13:26 05/17/25 13:41 Ondansetron Hcl 4 Mg/2 Ml Vial IVPUSH 05/17/25 13:27 4 mg ONCE ONE Administration Discharge Plan Discharge Clinical Impression: Abdominal distention, Acute hypokalemia, Neutropenia Patient Disposition: [facility] Transfer Details: [facility]. Prescriptions: No Action Eliquis 5 mg tablet 5 mg PO BID@0500,1700 sennosides [Senna Lax] 8.6 mg Tablet 17.2 mg PO BEDTIME 30 Days Qty: 60 2RF oxycodone 5 mg tablet 5 mg PO Q8H PRN (Reason: Pain (Scale Score 4-6)) magnesium oxide 400 mg magnesium Capsule 400 mg PO DAILY Qty: 30 3RF hydroxyzine HCl 25 mg Tablet 25 mg PO TID PRN (Reason: Itching ) Qty: 30 0RF potassium chloride 10 mEq Capsule, Extended Release 20 meq PO DAILY Qty: 90 1RF simethicone 80 mg Tablet,Chewable 80 mg PO BID PRN (Reason: Abdominal bloating) Qty: 30 2RF diphenoxylate-atropine [Lomotil] 2.5-0.025 mg Tablet 1 tab PO DAILY PRN (Reason: Diarrhea) Qty: 30 0RF ondansetron 8 mg tablet,disintegrating 8 mg PO Q8H PRN (Reason: Nausea And Vomiting) Qty: 60 4RF clonazepam 1 mg tablet 1 mg PO BEDTIME lamotrigine 200 mg tablet 300 mg PO DAILY methylphenidate HCl 54 mg tablet extended release 24hr 54 mg PO DAILY methylphenidate HCl 10 mg tablet 10 mg PO DAILY metoprolol succinate 50 mg tablet extended release 24 hr 50 mg PO DAILY amlodipine 5 mg tablet 5 mg PO BEDTIME risperidone [Risperdal] 1 mg tablet 1 mg PO BEDTIME Interventions: Acute Care Transfer Worksheet (ED) Last Done: 05/17/25 20:56 Discharge Date/Time: 05/17/25 20:57 Print Language: Cuban
[2025-05-17 14:00] VITALS: BP 126/78; PULSE 72; RESP 20; O2SAT 96
[2025-05-17 14:15] LABS: Hematocrit 31.6 % (42.0-52.0); Hemoglobin 10.5 g/dl (14.0-18.0); Imm Gran Abs Auto 0.02 X10*3/uL (0.00-0.03); Imm Gran Pct Auto 1.3 % (0.0-0.4); Lymphocytes Absolute Auto 0.5 X10*3/uL (1.2-4.9); MANUAL DIFF FLAG SCAN; Mean Corpuscular HGB Conc 33.2 g/dl (31.0-36.0); Mean Corpuscular Hemoglobin 28.9 pg (27.0-33.0); Mean Corpuscular Volume 87.1 fL (80.0-98.0); NRBC Abs Auto 0.000 X10*3/uL (0.0-0.012); NRBC Pct Auto 0.0 /100WBC (0.0-0.2); Platelet Count 145 X10*3/uL (160-400); Red Blood Count 3.63 X10*6/uL (4.60-5.80); SCAN SMEAR FLAG 1; White Blood Count 1.5 X10*3/uL (4.8-10.8)
[2025-05-17 14:38] LABS: Troponin-I High Sensitivity < 2.7 ng/L (<3.5-35.0)
[2025-05-17 14:39] LABS: Alanine Aminotransferase 7 U/L (0-40); Anion Gap 13 (12-20); Aspartate Amino Transferase 18 U/L (5-37); Blood Urea Nitrogen 11 mg/dL (9-16); Calcium 8.3 mg/dL (8.4-10.2); Carbon Dioxide 24 mmol/L (22-29); Chloride 103 mmol/L (96-108); Creatinine Clr Calc Pharmacy 163.9; Estimated Glomerular Filt Rate > 60; Magnesium 1.7 mg/dL (1.6-2.6); Potassium 2.8 mmol/L (3.3-5.1); Sodium 137 mmol/L (135-145); Total Protein 6.5 g/dL (6.5-8.0)
[2025-05-17 14:40] LABS: Albumin Level 3.9 g/dL (3.5-5.0); Alkaline Phosphatase 79 U/L (39-117); Lipase 14 U/L (8-78)
[2025-05-17] MEDS: Potassium Chloride/H20 10 MEQ/100 ML PIGGYBACK 100 MEQ IV ×4 (14:55→18:58)
[2025-05-17] MEDS: iohexoL 350 MG/ML 100 ML INFUS..BTL IV (16:10)
--- NOTE | 2025-05-17 17:01 | PM.IMHP ---
History of Present Illness Date of Service: 05/17/25 Chief Complaint: Severe abdominal pain, unable to tolerate p.o. 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 He has a hx of sigmoidoscopy as well with colonic stent 02/28/25 - he went to the office today and reported distention, pain, nausea, loose stools - his K was 3.1 and his WBC count was 1.6 and was advised to come to the ED. he could not tolerate any p.o. intake and gradual worsening abdominal pain, nausea, vomiting in a patient who has neutropenia. Patient received potassium supplementation at Oncology today, was sent for GI referral for stent evaluation and CT obstruction. His oncological and GI history-Sigmoidoscopy s/p Colonic stent placed 03/20/25 without complication with improvement in abdominal distention His oncologist-Dr. Case sent him here today to evaluate his distending abdomen, pain and intermittent constipation due to concern of partial bowel obstruction or stent failed. CTA/P showed a rectal stent likely obstructed with fluid and gas distending in the small and large bowel likely meds to the liver, gallbladder hydrops Labs notable for neutropenia, thrombocytopenia, hypokalemia post repletion Surgery GI and oncology consult placed. Patient being admitted for further medical management PMFSH Medical History Abdominal distention Port-A-Cath in place H/O sigmoidoscopy Elective surgery Marijuana smoker Chronic back pain Anxiety History of obesity Diabetes mellitus Hypertension Neoplasm of rectosigmoid junction Family History Other Family history unknown Surgical History History of flexible sigmoidoscopy (~12/14/23) H/O oral surgery No pertinent past surgical history Social History Household Members: Spouse Housing: House Are you a primary pediatric critical care nurse to a significant other at home: No Do you presently have visiting nurse or other home services: No Patient Tobacco Use Status: Never used Tobacco Substance Use Type: Marijuana Advance Directives: Yes Advance Directives on File: Yes Advance Directives Date on File: 03/13/24 Do you have a plan to hurt others: No Plan service: No Current occupational status: disabled Meds Allergies Allergy/AdvReac Type Severity Reaction Status Date / Time No Known Allergies (No Known Allergy Verified 05/17/25 13:13 Allergies*) Active Medications: Current Medications Potassium Chloride (Potassium Chloride/H20) 10 meq in 100 mls @ 100 mls/hr IV Q1H RACHEL Stop: 05/17/25 18:59 Last Admin: 05/17/25 16:40 Dose: 100 mls/hr Sodium Chloride (Ns) 1,000 mls @ 80 mls/hr IVCONT .[id number] RACHEL Last Admin: 05/17/25 16:40 Dose: 80 mls/hr Home Medications ?Medication ?Instructions ?Recorded ?Confirmed ?Last Taken ?Type amlodipine 5 mg tablet 5 mg PO BEDTIME 12/09/23 04/17/25 03/15/25 History clonazepam 1 mg tablet 1 mg PO BEDTIME PRN Anxiety 12/09/23 04/17/25 12/28/23 History lamotrigine 200 mg tablet 300 mg PO DAILY 12/09/23 04/17/25 03/16/25 History methylphenidate HCl 10 mg tablet 10 mg PO DAILY 12/09/23 04/17/25 03/16/25 History methylphenidate HCl 54 mg 54 mg PO DAILY 12/09/23 04/17/25 03/16/25 History tablet,extended release 24 hr metoprolol succinate 50 mg 50 mg PO DAILY 12/09/23 04/17/25 03/16/25 History tablet,extended release 24 hr risperidone 1 mg tablet (Risperdal) 1 mg PO BEDTIME 12/09/23 04/17/25 03/15/25 History apixaban 5 mg tablet (Eliquis) 5 mg PO BID@0500,1700 03/16/25 04/17/25 03/16/25 History barium sulfate 2 % (w/v) oral 450 ml PO BID PRN cat scan 03/16/25 04/17/25 Unknown History suspension (Readi-Cat 2) dexamethasone 4 mg tablet 4 mg PO WETH with chemotherapy 03/16/25 04/17/25 03/15/25 History omeprazole 20 mg capsule,delayed 20 mg PO DAILY@0630 03/16/25 04/17/25 03/15/25 History release Physical Exam Vital Signs and Narrative: Vital Signs: Last Vital Signs Temp 98.4 F 05/17/25 13:11 Pulse 72 05/17/25 14:00 Resp 20 05/17/25 14:00 BP 126/78 05/17/25 14:00 Pulse Ox 96 05/17/25 14:00 O2 Del Method Room Air 05/17/25 14:00 BMI result Body Mass Index 24.9 General: AOx3, no acute distress Resp: Bilateral wheezing CVS: S1, S2, RRR GI: Distended abdomen, sluggish bowel sounds Results Labs 05/17/25 13:53 05/17/25 13:53 Labs: Laboratory Results - last 24 hr 05/17/25 13:53 MCV 87.1 MCH 28.9 MCHC 33.2 RDW 13.8 Plt Count 145 L MPV 9.1 L Immature Gran % (Auto) 1.3 H Neut % (Auto) 53.6 Lymph % (Auto) 33.1 [place] % (Auto) 10.6 Eos % (Auto) 0.7 Baso % (Auto) 0.7 Lymph # (Auto) 0.5 L [place] # (Auto) 0.2 Eos # (Auto) 0.0 Baso # (Auto) 0.0 Abs Immat Gran (auto) 0.02 Absolute Neuts (auto) 0.8 L Absolute Nucleated RBC 0.000 Nucleated RBC % (auto) 0.0 Smear Tech's Comments VERIFIED Anion Gap 13 Estim Creat Clear Calc 163.9 Estimated GFR > 60 Random Glucose 127 H Lactic Acid 0.7 Calcium 8.3 L D Magnesium 1.7 Total Bilirubin 1.0 Direct Bilirubin 0.4 AST 18 ALT 7 Alkaline Phosphatase 79 Troponin I High Sens < 2.7 D C-Reactive Protein 7.27 H Total Protein 6.5 Albumin 3.9 Lipase 14 Imaging Radiologist's Impressions: Impressions Abdomen/Pelvis CT 05/17/25 15:56 IMPRESSION: A rectal stent has been placed since the prior CT. There appears to be obstruction with fluid and gas distending small and large bowel. Stable low attenuating lesions in the liver could represent treated metastatic disease or hepatic cysts. Gallbladder hydrops is mildly increased from the prior. Fleischner guidelines were followed. Electronically signed by: Juan Lipscomb MD 05/17/2025 04:34 PM EDT Assessment and Plan (1) Neoplasm of rectosigmoid junction: Status: Acute 60-year-old male with stage IV rectosigmoid adenocarcinoma (metastatic to kidney, liver, lungs) on active chemotherapy, history of colonic stent placement (03/20/25) for malignant obstruction, prior PE on apixaban, and adult failure to thrive, presenting with progressive abdominal distention, pain, nausea, vomiting, and inability to tolerate oral intake. Imaging reveals likely obstructed rectal stent with significant small and large bowel distention, hepatic metastases, and gallbladder hydrops. Labs notable for neutropenia (WBC 1.6), thrombocytopenia, and persistent hypokalemia despite repletion. High risk for bowel perforation, sepsis, and further clinical deterioration given immunosuppressed state and cytopenias. Plan: 1. Bowel Obstruction/Obstructed Colonic Stent: NPO, maintain strict bowel rest. Place NG tube for decompression if significant vomiting or ongoing distention. Serial abdominal exams and monitoring for signs of peritonitis or perforation. IV fluids for hydration and electrolyte support. GI and surgical consults already placed; coordinate for urgent endoscopic or surgical intervention as indicated. Monitor for need for emergent intervention if clinical status worsens. 2. Neutropenia and Thrombocytopenia (likely Chemotherapy and Malignancy -induced): Neutropenic precautions: reverse isolation, strict hand hygiene, monitor for fever/sepsis. Daily CBC monitoring. Consider G-CSF (filgrastim) if appropriate per oncology. Transfusion support for platelets if <10K or if bleeding. Start Empiric broad-spectrum IV antibiotics if febrile or any signs of infection- given neutropenia , I have started him on Zosyn and vancomycin Follow-up GI and C diff panel 3. Severe Hypokalemia: Continue IV potassium repletion, monitor serum levels closely. Monitor for arrhythmias and other electrolyte disturbances. Monitor on telemetry 4. Malignancy/Metastatic Disease: Oncology to guide further chemotherapy and palliative options. Assess for goals of care and advanced directives; consider palliative care consult for symptom management and support. 5. Anticoagulation (History of PE, on apixaban): Cont apixaban given active GI process and thrombocytopenia. Reassess risk/benefit of anticoagulation daily in conjunction with hematology/oncology. 6. Nutrition/Failure to Thrive: NPO for now; reassess for enteral or parenteral nutrition if prolonged NPO status. Nutrition consult for assessment and recommendations. Surgery consult for SBO 7. Symptom Management: IV antiemetics for nausea/vomiting. Pain control with careful titration, avoiding NSAIDs due to GI risk and thrombocytopenia. Bowel regimen to prevent further complications once obstruction resolves. Frequent reassessment for clinical deterioration or need for escalation of care. Multidisciplinary approach with GI, surgery, oncology, nutrition, and palliative care. Update patient and family regarding diagnosis, prognosis, and plan of care. Discuss code status and goals of care as appropriate. Med rec not done-awaiting med rec and resume meds post med rec This patient requires close inpatient monitoring and multidisciplinary management for malignant bowel obstruction with obstructed colonic stent, severe neutropenia and thrombocytopenia, and inability to tolerate oral intake, all in the context of advanced metastatic cancer and recent chemotherapy. The risk of rapid decompensation, sepsis, and need for urgent intervention is high. This note is constructed using voice recognition software. While every effort has been made to ensure accuracy, transcription coordinator errors may have been included. Quality Stroke Does the patient have a stroke diagnosis?: No VTE Prior VTE?: Yes VTE Risk Level:: Medical - moderate - high VTE Device Contraindication: N/A - Device Ordered VTE Drug Contraindication: N/A - Med Ordered
[2025-05-17 18:39] VITALS: BP 133/80; PULSE 69; RESP 16; TEMP 36.3; O2SAT 95
[2025-05-17] MEDS: Lidocaine HCl 2 % Urojet 10 ML JEL.PF.APP TOPICAL (19:28)
--- NOTE | 2025-05-17 19:44 | PC.NURSE ---
report called to [place] Triage nurse, pt awaiting transfer.
--- NOTE | 2025-05-17 19:49 | PC.NURSE ---
bladdered scanned for 700, urine output 300, post Carlton 350cc.
[2025-05-17 19:54] LABS: Appearance Urine Clear; Glucose Urine UA Negative (Negative); PH 6.0 (5.0-9.0); Specific Gravity - Urine >= 1.030 (1.005-1.025); UMIC TRIGGER UACC YES
[2025-05-17 20:07] LABS: Alanine Aminotransferase 8 U/L (0-40); Albumin Level 3.9 g/dL (3.5-5.0); Alkaline Phosphatase 79 U/L (39-117); Anion Gap 16 (12-20); Aspartate Amino Transferase 20 U/L (5-37); Blood Urea Nitrogen 10 mg/dL (9-16); Calcium 8.5 mg/dL (8.4-10.2); Carbon Dioxide 20 mmol/L (22-29); Chloride 104 mmol/L (96-108); Creatinine Clr Calc Pharmacy 143.1; Estimated Glomerular Filt Rate > 60; Potassium 3.3 mmol/L (3.3-5.1); Sodium 137 mmol/L (135-145); Total Protein 6.8 g/dL (6.5-8.0)
[2025-05-17 20:14] LABS: NT Pro B Type Natriuretic Pept 436.9 pg/mL (<300)
[2025-05-17] MEDS: diazePAM 10 MG/2 ML CARTRIDGE 5 MG IVPUSH (20:38)
--- NOTE | 2025-05-17 20:52 | PC.NURSE ---
pt medicated per mar. upon transfer.
[2025-05-17 20:56] VITALS: BP 133/80; PULSE 69; RESP 16; TEMP 36.3; O2SAT 95
[2025-05-18 11:46] LABS: E. coli EAEC Not Detected (Not Detect.); E. coli EPEC Not Detected (Not Detect.); E. coli ETEC Not Detected (Not Detect.); E. coli STEC Not Detected (Not Detect.); Shigella sp./EIEC Not Detected (Not Detect.)
== END 2025-05-17 20:57 | disposition short-term general hospital (02) ==
PROVIDERS: Emergency Medicine; Student in an Organized Health Care Education/Training Program; Emergency Provider Emergency Medicine
DX: R14.0 Abdominal distension (gaseous) (principal); E87.6 Hypokalemia; D70.9 Neutropenia, unspecified; R94.31 Abnormal electrocardiogram [ECG] [EKG]; R06.02 Shortness of breath; R11.0 Nausea; R10.22 Pelvic and perineal pain left side; R19.7 Diarrhea, unspecified; Z79.899 Other long term (current) drug therapy; Z86.711 Personal history of pulmonary embolism; Z79.01 Long term (current) use of anticoagulants
CPT/HCPCS: 36415; 74177; 80048; 80053; 80076; 81001; 81003; 83605; 83690; 83735; 83880; 84484; 85025; 86140; 87507; 93005; 96365; 96366; 96375; 96376; 99285; J1171; J2405; J3360; J3480; Q9967

== ENCOUNTER → 2025-05-17 13:26 | Outpatient (BNV) | payer OTHER, SELFPAY | PROVIDERS: Emergency Provider Emergency Medicine; Visit Provider Internal Medicine Cardiovascular Disease | DX: R94.31 Abnormal electrocardiogram [ECG] [EKG] (principal); R10.9 Unspecified abdominal pain | CPT/HCPCS: 93010 ==

== ENCOUNTER → 2025-05-17 13:26 | Outpatient (BNV) | payer OTHER, SELFPAY | PROVIDERS: Emergency Provider Emergency Medicine; Visit Provider Radiology Diagnostic Radiology | DX: K76.9 Liver disease, unspecified (principal); K82.1 Hydrops of gallbladder | CPT/HCPCS: 74177 ==

== ENCOUNTER 2025-05-30 11:30 | Outpatient (AMB) | payer OTHER, SELFPAY ==
--- OUTSIDE RECORDS SUMMARY | 2025-05-17 20:59 | XMS_ITS | Encounter Summary ---
Author Organization [facility] Address [address] [place] [address] Care Team Providers Care Frame Trimmer Name Role Phone Unknown Primary Care Provider [phone] eHmanth Wolfe MD Primary Care Provider [phone] Reason for Referral * Home Health (Routine) - Pending Review Specialty Diagnoses / Procedures Referred By Contjavy t Referred To Contact Diagnoses Large bowel obstruction (HCC) Demetra Fernández, ALIN [address] [facility] [place] [address] Phone: tel: fax: Hemanth Wolfe MD [address] [place] [id number] Phone: tel: fax: Referral ID Status Reason Start Date Expiration Date V isits Requested Visits Authorized [id number] Pending Review 05/24/2025 05/25/[phone] Question Answer Primary Reason for Home Health (Enter diagnosis; avoid symptoms): Large bowel obstruction (HCC) [[id number]] Requested SOC Date Physician to follow patient's care Other (please comment) - Dr. Hemanth Wolfe At Home Intensive? No Pre-Book? No Comments Please evaluate Riana Coreas for admission to HomeCare Services The following services are medically necessary home health services: Nursing: Anticoagulation Therapy: monitoring and teaching Cardiopulmonary Care: instruct in disease and medication management Disease Process: assess for S/S of decompensation or adverse effects of new/exacerbated disease Medication Management and Teaching Nutritional Status: assess and provide teaching about disease specific diet recommendations Post- Op Care and Teaching Safety Eval: assess for additional needs Telemonitor: evaluate need Other New Ostomy Physical Therapy: ADL/IADLs: improve independence Cardiopulmonary Program: improve functional activity tolerance and performance Gait Training Home Safety Evaluation and Teaching Safe Steps Program: improve gait instability, functional balance impairments Strengthening: improve function and mobility Secondary Disciplines &Services: None Special Instructions: None This patient is homebound because: Difficulty with ambulation and transfers requiring assistance of others to leave home safely. and Extreme weakness r/t disease and illness Date of F2F Encounter: I verify that a F2F Encounter occurred on 05/24/25 upon which the patient was found to be homebound and require intermittent skilled care by a SN, PT, ST or OT. Services. The encounter findings are communicated to the certifying physician Reason for Visit * Reason Comments Abdominal Pain * Auth/Cert Specialty Diagnoses / Procedures Referred By Alla guerra Referred To Contact Diagnoses Large bowel obstruction (HCC) Lg bowel obstruction Malfunctioning colon stent Procedures . Referral ID Status Reason Start Date Expiration Date Visits Re quested Visits Authorized [id number] 1 1 Encounter Details Date Type Department Care Team (Latest Contact Info) Description 05/17/2025 9:59 PM EDT - 05/29/2025 1:36 PM [facility] Hospital Encounter [facility] [address] [place] [phone] Fabien Sullivan MD [address] [place] [address] Nehemias Enciso MD [address] [place] [address] Odell Sterling MD [address] [place] [address] Felipe Limon MD [address] [place] [address] Radha Gay MD [address] [place] [address] Large bowel obstruction (HCC) (Primary Dx) Discharge Disposition: Home with Health Care Services Social History Tobacco Use Types Packs/Day Years Used Date Smoking Tobacco: Never Tobacco Cessation:Counseling Given: Not Answered Alcohol Use Standard Drinks/Week Comments Never 0 (1 standard drink = 0.6 oz pur e alcohol) AUDIT-C Answer Date Recorded Q1: How often do you have a drink containing alcohol? Never 05/18/2025 Q2: How many drinks containi ng alcohol do you have on a typical day when you are drinking? Patient does not drink Q3: How often do you have si x or more drinks on one occasion? Never 05/18/2025 Hunger Vital Sign Answer Date Recorded Within the past 12 months, y ou worried that your food would run out before you got the money to buy more. Never true 05/18/20 25 Within the past 12 months, t he food you bought just didn't last and you didn't have money to get more. Never true 05/18/2025 PRAPARE - Transportation Answer Date Re corded In the past 12 months, has l ack of transportation kept you from medical appointments or from getting medications? No 04/26 In the past 12 months, has l ack of transportation kept you from meetings, work, or from getting things needed for daily living? No 05/18/2025 Housing Stability Vital Sign Answer Oseas e Recorded In the last 12 months, was t here a time when you were not able to pay the mortgage or rent on time? No 05/18/2025 In the past 12 months, how m any times have you moved where you were living? 0 05/18/2025 At any time in the past 12 m [facility], were you homeless or living in a fpc (including now)? No 05/18/2025 [facility] Utilities Answer Date Recorded In the past 12 months has th e electric, gas, oil, or water company threatened to shut off services in your home? No 05/18/2025 Sex and Gender Information Value Date Recorded Sex Assigned at Male 05/17/2025 10:15 PM EDT Legal Sex Male 6:56 PM EDT Gender Identity Male 05/17/2025 10:15 PM EDT Sexual Orientation Choose not to disclose 2024 10:15 PM EDT documented as of this encounter Last Filed Vital Signs Vital Sign Reading Time Taken Comments Blood Pressure 120/66 05/29/2025 11:51 AM EST Pulse 76 05/29/2025 11:51 AM EST Temperature 36.8 C (98.2 F) 05/29/2025 11:51 AM EST Respiratory Rate 18 05/29/2025 11:51 AM EST Oxygen Saturation 98% 05/29/2025 11:51 AM EST Inhaled Oxygen Concentration - - Weight 80.9 kg (178 lb 5.6 oz) 05/26/2025 12:20 PM EDT Height 188 cm (6' 2 ) 05/18/2025 7:00 AM EDT Body Mass Index 22.9 05/18/2025 7:00 AM EDT documented in this encounter Functional Status * AUDIT-C Score Answer Date of Assessment Author 0 05/18/2025 9:43 AM EDT Hill Roberts RN * Question Answer Date of Assessment Author AUDIT-C Total Score - Male 0 05/18/2025 9:43 AM EDT Charu Roberts RN Q1: How often do you have a drink containing alcohol? Never 05/18/2025 9:43 AM EDT Charu Roberts RN Q2: How many drinks containing alcohol do you have on a typical day when you are drinking? Patient does not drink 05/18/2025 9:43 AM EDT Charu Roberts RN Q3: How often do you have six or more drinks on one occasion? Never 05/18/2025 9:43 AM EDT Charu Roberts RN * Level of Risk per Screen Answer Date of Assessment Author Low Risk 05/18/2025 9:43 AM EDT Hill Roberts RN documented as of this encounter Discharge Summaries * Kaylene Starr, LEI SELLER - 05/29/2025 9:39 AM EST Inpatient Discharge Summary Brief Overview Patient Demographics RIANA COREAS 1965 60 y.o. Allergies[1] Admission Date: 05/17/2025 Discharge Date: 05/29/2025 Admitting Provider: Nehemias Mendoza MD Discharge Provider: Radha Gay MD Covering Service: [facility] Primary Care Physician at Discharge: Hemanth Wolfe MD Discharge Condition: stable Admitting Diagnosis Principal Problem: Large bowel obstruction (HCC) (POA: Yes) Active Problems: ADHD (POA: Unknown) HTN (hypertension) (POA: Unknown) History of pulmonary embolus (PE) (POA: Unknown) GERD (gastroesophageal reflux disease) (POA: Unknown) Rectal cancer metastasized to liver (HCC) (POA: Unknown) Anxiety (POA: Unknown) Severe malnutrition:Severe fat depletion(bicep/tricep fat pads) and severe muscle depletion (quadriceps and gastrocnemius) (POA: Yes) Resolved Problems: Primary Discharge Diagnosis Principal Problem: Large bowel obstruction (HCC) (POA: Yes) Active Problems: ADHD (POA: Unknown) HTN (hypertension) (POA: Unknown) History of pulmonary embolus (PE) (POA: Unknown) GERD (gastroesophageal reflux disease) (POA: Unknown) Rectal cancer metastasized to liver (HCC) (POA: Unknown) Anxiety (POA: Unknown) Severe malnutrition:Severe fat depletion(bicep/tricep fat pads) and severe muscle depletion (quadriceps and gastrocnemius) (POA: Yes) Resolved Problems: Procedures: Surgical/Procedural Cases on this Admission Case IDs Date Procedure Surgeon Location Status [id number] 05/19/25 LAPAROSCOPY CREATION OF COLOSTOMY Radha Gay MD Main OR Comp Consults: Ostomy nurse specialist Nutrition PT/OT Medicine Chief Complaint: Large bowel obstruction (HCC) Presenting Problem/History of Present Illness As per original HPI; 60 y/o male with pmhx of metastatic rectal cancer who had stent placed 03/20/25 at [place] and is actively undergoing chemotherapy with Avastin and Lonsurf (last infusion of Avastin was 05/15/25), htn, gerd, adhd presents here as a transfer from [facility] with [facility]. Per patient he has had difficulty tolerating chemotherapy over the past few months and has been hospitalized with similar symptoms recently. He reports he gets distended and nauseous. Per discussion with his Syeda on the phone, he previously underwent 22 rounds of folfox and foliri (last dose mar 14, 2025, ended up in hospital on mar 16 with abdominal distension, n/v). During that hospital admission, he had a stent placed on March 20, 2025 for which the reports he had some relief of his symptoms and was somewhat back to his baseline for the first time in 16 months. He was then recently switched to Avastin and Lonsurf. His last dose of Avastin was 05/15/25 which completed cycle 1.His plan had been for 16 days off and then to start cycle 2 which is scheduled for May 29. Patient was unable to recall chemotherapy regimen but it was confirmed with his . Patient reports after his last dose of chemotherapy, he ended up back in [place] two days ago with distension and nausea. He reports no vomiting. He has had alternating bowel movements of diarrhea and more formed stools. He reports that he continues to pass gas. He denies any fever, chills, chest pain, sob, difficulty breath. He has not had any PO intake in the last 2 days since he went to [place]. At OSH he had imaging concerning for occlusion of his rectal stent with subsequent LBO. Currently, he is admitted to medicine. He is NPO with IVF. He is leukopenic to 2.2. An NG tube was placed for decompression. Anticoagulation: eliquis 5 mg bid (last dose today), switching to heparin gtt Abdominal Surgical History includes: none. Last PO intake: 2 days ago Hospital Day: 13 Past Medical History: Diagnosis Date ADHD GERD (gastroesophageal reflux disease) History of pulmonary embolus (PE) Hypertension Rectal cancer (HCC) Past Surgical History: Procedure Laterality Date CREATION COLOSTOMY N/A 05/19/2025 Procedure: LAPAROSCOPY CREATION OF COLOSTOMY; Surgeon: Radha Gay MD; Location: Main OR; Service: Tolono-Rectal; Laterality: N/A; Admission Medications No medications prior to admission. Discharge Medications New Medications Sig acetaminophen 325 MG tablet Commonly known as: TYLENOL Take 2 tablets (650 mg total) by mouth 4 times daily (every 6 hours) as needed for mild pain. Quantity: 240 tablet amLODIPine 5 MG tablet Commonly known as: NORVASC Take 1 tablet (5 mg total) by mouth nightly. amoxicillin-clavulanate 875-125 MG per tablet Commonly known as: AUGMENTIN Take 1 tablet by mouth every 12 (twelve) hours around the clock. Quantity: 28 tablet Stop taking on: June 12, 2025 apixaban 5 MG tablet Commonly known as: ELIQUIS Take 1 tablet (5 mg total) by mouth every 12 (twelve) hours around the clock. clonazePAM 1 MG tablet Commonly known as: KlonoPIN Take 1 tablet (1 mg total) by mouth nightly. lamoTRIgine 150 MG tablet Commonly known as: LaMICtal Take 2 tablets (300 mg total) by mouth daily. methocarbamol 500 MG tablet Commonly known as: ROBAXIN Take 1 tablet (500 mg total) by mouth 4 (four) times a day as needed for muscle spasms. Quantity: 12 tablet methylphenidate 18 MG CR tablet Commonly known as: CONCERTA Take 1 tablet (18 mg total) by mouth daily. Max Daily Amount: 18 mg metoPROLOL SUCCINATE 50 MG 24 hr tablet Commonly known as: TOPROL-XL Take 1 tablet (50 mg total) by mouth daily. oxyCODONE 5 MG immediate release tablet Commonly known as: ROXICODONE Take 1 tablet (5 mg total) by mouth every 4 (four) hours as needed for severe pain. Max Daily Amount: 30 mg Quantity: 10 tablet risperiDONE 1 MG tablet Commonly known as: RisperDAL Take 1 tablet (1 mg total) by mouth nightly. Physical Exam at Discharge Physical Exam Gen: AOx3, no acute distress Card: Regular rate and rhythm Pulm: No increased work of breathing Abd: Soft, non distended. Erythema surrounding surgical incision which is c/d/I with silver nitrateon top. Ostomy is pink and viable with liquid brown stool and gas in the bag. Skin: warm and dry Last Vitals: Pulse:76,Resp:18,BP:120/66,SpO2:98 %,Weight: 80.9 kg (178 lb 5.6 oz) Temp Last 24 hrs: Temp Min: 97 ??F (36.1 ??C) Max: 98.2 ??F (36.8 ??C) Pertinent Laboratory data: Notable labs are: White Blood Cell Count Date Value Ref Range Status 05/28/2025 3.7 (L) 4.0 - 11.0 Thou/uL Final Hemoglobin Date Value Ref Range Status 05/28/2025 9.6 (L) 13.0 - 17.7 g/dL Final Hematocrit Date Value Ref Range Status 05/28/2025 30.4 (L) 39.0 - 54.0 % Final Platelet Count Date Value Ref Range Status 05/28/2025 340 150 - 450 Thou/uL Final Lab Results Component Value Date NA 135 (L) 05/25/2025 K 3.5 05/25/2025 CL 100 05/25/2025 CO2 22 05/25/2025 BUN 4 (L) 05/25/2025 CREAT 0.44 (L) 05/25/2025 GLUC 131 (H) 05/29/2025 GLUC 84 05/25/2025 Lab Results Component Value Date CALCIUM 8.3 (L) 05/25/2025 MG 1.8 05/25/2025 PHOS 3.0 05/25/2025 Diagnostic Studies: CT Abdomen+pelvis w/contrast Result Date: 05/28/2025 EXAMINATION: CT ABDOMEN AND PELVIS WITH CONTRAST CLINICAL INFORMATION: assess intraabdominal or abdominal wall fluid collection. COMPARISON: CT abdomen/pelvis dated 05/24/2025 TECHNIQUE: Multidetector volumetric imaging was performed from the lung bases to the pubic symphysis following the administration of: Oral contrast: No Intravenous contrast: 100 mL Omnipaque 350 No contrast reaction reported. Sagittal and coronal reformatted images were obtained on the technologist's workstation. This CT examination was performed using dose optimization techniques as appropriate, variously including thefollowing: *Automated exposure control *Adjustment of mA and/or kV according to patient size (this includes techniques or standardized protocols for targeted exams where dose is matched to indication/reason for exam; i.e. extremities or head) *Use of iterative reconstruction technique Total exam dose-length product 426.95 mGy-cm. FINDINGS: VISUALIZED CHEST: Partially visualized dilation of the aortic root and ascending aorta, with maximal diameter of 4.3 cm at the sinuses of Valsalva and 4.1 cmand the visualized ascending segment. Partially visualized central line with tip terminating in theright atrium. LIVER, GALLBLADDER, AND BILIARY TREE: Stable scattered hypodense lesions, for examplein 1.6 cm lesion in the right hepatic lobe. No new focal lesion. No biliary ductal dilatation is present. The gallbladder is persistently dilated with no evidence of radiopaque gallstones, gallbladder wall thickening, or obvious pericholecystic inflammatory changes. PANCREAS: Normal; no mass or surrounding fluid. SPLEEN: Normal size. No focal lesion. ADRENAL GLANDS: Normal; no mass. KIDNEYS AND URETERS: The kidneys are normal in size, shape, and attenuation. No hydronephrosis, hydroureter, or calculi. GASTROINTESTINAL TRACT: Redemonstration of Loop colostomy located in the left lower quadrant. Persistent circumferential wall thickening of the rectosigmoid colon. Colonic stent is in similar position and is located within the rectum. Persistently mildly dilated small bowel, with multiple air-fluid levels and no transition point visualized. Normal appendix. LYMPHOVASCULAR STRUCTURES: Stable enlarged claudia hepatic lymph node measures 2.2 x 1.7 cm (601:36). No lymphadenopathy. The aorta isnormal in caliber. BLADDER: Persistent moderate circumferential wall thickening and containing a small foci of intraluminal air, which may be due to instrumentation PELVIC VISCERA: Enlarged prostate measures 5.2 cm in transverse. ABDOMINAL WALL: Colostomy in the left lower quadrant, as above. Mild decrease in the peristomal soft tissue stranding. Decrease in the size and number of foci of air in the anterior abdominal wall. No drainable fluid collection. OSSEOUS STRUCTURES: Mild degenerative changes of the spine. No destructive osseous lesions. 1. Status post loop colostomy in the left lower quadrant with mild interval decrease in the parastomal soft tissue stranding and gas. No drainable fluid collection. 2. Persistent mild dilation of thesmall bowel with multiple air- fluid levels and no transition point visualized. Findings may represent ileus versus partial small bowel obstruction. 3. Persistent circumferential wall thickening of the rectosigmoid colon. 4. Persistently dilated gallbladder with no evidence of radiopaque gallstones,gallbladder wall thickening, or obvious pericholecystic inflammatory changes. 5. Partially visualized dilation of the aortic root and ascending aorta, with maximal diameter of 4.3 cm at the sinuses of Valsalva and 4.1 cm and the visualized ascending segment. 6. Prostatomegaly. Fleischner guidelineswere followed. CT Abdomen+pelvis w/contrast Result Date: 05/24/2025 EXAMINATION: CT ABDOMEN AND PELVIS WITH CONTRAST CLINICAL INFORMATION: s/p lap loop colostomy for metastatic rectal cancer on Avastin now with redness/tenderness surrounding ostomy site. Concern for collecton, ? dehiscence as he is high risk second to chemo. COMPARISON: CT abdomen and pelvis 05/17/2025 CT abdomen and pelvis 04/07/2024 CT abdomen pelvis 12/07/2023 TECHNIQUE: Multidetector volumetricimaging was performed from the lung bases to the pubic symphysis following the administration of: Oral contrast: No Intravenous contrast: 80 mL Omnipaque 350 No contrast reaction reported. Sagittal and coronal reformatted images were obtained on the technologist's workstation. This CT examination was performed using dose optimization techniques as appropriate, variously including the following: *Automated exposure control *Adjustment of mA and/or kV according to patient size (this includes techniques or standardized protocols for targeted exams where dose is matched to indication/reason for ex am; i.e. extremities or head) *Use of iterative reconstruction technique Total exam dose-length product 381 mGy-cm. FINDINGS: VISUALIZED CHEST: Dependent bibasilar atelectasis. Small focus of groundglass in the medial aspect of the right lower lobe. No pleural effusion. Partially visualized right IJ CVC with tip terminating in right atrium. Coronary artery calcifications present. No pericardial effusion. LIVER, GALLBLADDER, AND BILIARY TREE: The liver is normal in size and shape. Redemonstration of multiple hypodensities within the right hepatic lobe, similar to most recent prior and grossly decrease in size from CT abdomen pelvis on 04/07/2024. Similar mild periportal edema. No definitive in traductal biliary dilation. Gallbladder is dilated measuring approximately 5.4 x 11.5 cm. No evidence of radiopaque stones, gallbladder wall thickening, or pericholecystic inflammatory changes. PANCREAS: Unremarkable. SPLEEN: Unremarkable. ADRENAL GLANDS: Unremarkable. KIDNEYS AND URETERS: The kidneys enhance symmetrically. The kidneys are normal in size, shape, and attenuation. No hydronephrosis, hydroureter, or calculi. Subcentimeter in bilateral kidneys which are too small to appropriately characterize and statistically likely benign renal cyst which is not require dedicated follow-up. GASTROINTESTINAL TRACT: Stomach is non-dilated. Multiple fluid-filled and gaseous distended small bowel, some of which are mildly dilated up to 3.4 cm. Status post loop colostomy with ostomy site in the ventral abdominal wall, left and midline. No large pelvic dilation. Similar circumferential thickening of the rectal and proximal sigmoid wall with rectal stent in grossly unchanged position. Grossly s imilar degree of presacral fat stranding/edema and prominent mesorectal lymph nodes as prior CT abdomen pelvis from 05/14/2025. Scattered colonic diverticulosis without evidence of acute diverticulitis. Appendix is unremarkable. ABDOMINAL WALL:Inflammatory stranding surrounds the ostomy site with an area of poorly organized edema measuring approximately 6.8 x 6.7 cm and numerous foci of associated subcutaneous gas tracking superiorly in the ventral soft tissues. No definitive rim enhancing collection. No definitive discontinuation of the ostomy [place] however evaluation limited in the absence of contrast. LYMPHOVASCULAR STRUCTURES: No bulky lymphadenopathy. Similar prominence of mesorectal lymph nodes. The aorta is normal in caliber. Mild aortoiliac atherosclerotic disease. BLADDER: Circumferential bladder wall thickening with multiple foci of gas present anti-dependently along the anterior bladder wall. Questionable loss of fat plane between the thickened rectosigmoid colon and posterior bladder wall (series 602, image 77). No definitive wall disruption or fistulization. PELVIC VISCERA: Prostatomegaly measuring approximately centimeters in transverse diameter. OSSEOUS STRUCTURES: No acute or suspicious osseous abnormality. PERITONEAL/RETROPERITONEAL: Grossly similar degree of presacral edema. No mass, focal thickening, or pneumoperitoneum. 1. Status post loop colostomy. Regions of inflammatory stranding and poorly organized edema adjacent to the ostomy site measuring approximately 6.8 x 6.7 cm with numerous foci of associated subcutaneous gas. No evidence of rim enhancement to suggest mature abscess however findings may represent phlegmonous changes. Additionally, given prominence of subcutaneous gas, cannot rule out necrotizing infection. Recommend biochemical and clinical correlation for further evaluation. 2. Circumferential bladder wall thickening concerning for cystitis. Multiple foci of gas seen anti-dependently along theanterior bladder wall, no Carlton in place. Cannot rule out gas-forming infection, recommend clinicalcorrelation for recent Carlton placement. 3. Multiple fluid-filled loops of small bowel with mild dilation up to 3.4 cm. No discrete transition point. Findings favor small bowel ileus given recent procedure. 4. Stable circumferential thickening of the rectosigmoid bowel wall with similar degree of presacral edema and prominent mesorectal lymph nodes. Rectal stent remains in unchanged position. 5. Redemonstration of multiple hypodensities within the right hepatic lobe, which appears grossly decreased in size since CT abdomen pelvis from 04/07/2024. Given history of known metastatic cancer status post chemotherapy, findings suggestive of improved metastatic lesions. 6. Small focus of groundglasswithin the medial aspect of right lower lobe may represent focal atelectasis. Cannot rule out infectious/inflammatory process. 7. Dilated gallbladder. No evidence of acute cholecystitis. 8. Prostatomegaly. This critical result was discussed with LEI SELLER by Dr. Demetra Crawford at 05/24/2025 3:20 PM EDT and it was ascertained that the content and urgency of the report was understood at the time of direct communication. Interpreted by: Munir Rawls MD Bezel Cutter I personally reviewed the images and the resident's preliminary report and AGREE with the report as it is now presented ([id number]). XR Chest 1 view Result Date: 05/21/2025 EXAMINATION: XR CHEST 1 VIEW CLINICAL INFORMATION: fever workup COMPARISON: Chest radiograph 03/27/2025 TECHNIQUE: AP view of the chest was obtained. FINDINGS: Right chest port central venous catheter tip overlying the right atrium. The lungs are adequately expanded. Mild bronchial wall thickening. St reaky left mid to lower lung opacities. There is no focal consolidation, effusion, or edema. No pneumothorax. The cardiomediastinal silhouette is within normal limits. No acute osseous abnormality. Mild bronchial wall thickening. Streaky left mid to lower lung opacities may reflect atelectasis and/or infectious/inflammatory process. Interpreted by: Pb Cummins MD Bezel Cutter I personally reviewed the images and the resident's preliminary report and AGREE with the report as it is now presented ([email or web address]). XR Abdomen 1 view-Portable Result Date: 05/18/2025 EXAMINATION: XR ABDOMEN KUB CLINICAL INDICATION: S/p NGT insertion COMPARISON: CT abdomen and pelvis 05/17/2025 TECHNIQUE: AP view of the abdomen. FINDINGS: Enteric tube, with the tip and sidehole over the expected location of GE junction/gastric fundus. Multiple air distended loops of small and large bowel are identified, with small bowel, measuring up to 5.2 cm. Visualized lung bases are clear.No acute osseous abnormality. 1. Enteric tube, with the tip and sidehole over the expected location of GE junction/gastric fundus. 2. Multiple air distended loops of small and large bowel, with small bowel measuring up to 5.2 cm.Findings may represent ileus or partial small bowel obstruction. CT Abdomen Archive for Reference Only Result Date: 05/17/2025 This study has been auto finalized and does not contain a result. CT Abdomen Archive for Reference Only Result Date: 05/17/2025 This study has been auto finalized and does not contain a result. Details of Hospital Stay Hospital Course RIANA COREAS is a 60 y.o. year-old male with a pmhx of metastatic rectal cancer who had stent placed 03/20/25 at [place] and is actively undergoing chemotherapy with Avastin and Lonsurf (last infusion of Avastin was 05/15/25), htn, gerd, adhd presents here as a transfer on 05/18/2025 from OSH with LBO. He was originally admitted to the Medicine Service. He was leukopenic to 2.2. An NGT was placed for decompression. GI was consulted who agreed that the patient needed to go to the OR for a diverting ostomy. The patient was consented and taken to the operating room on 05/19/2025 for a colostomy creation with Dr. Gay The patient underwent the procedure without any difficulty or complicati ons and tolerated the procedure well. See dictated operative note for further details. Findings showed a distended colon and small bowel. He was later transferred from the PACU to the surgical floor in stable condition. On POD#1 (05/20), his NGT was removed after successful 6-hour NGT gravity trial. His diet was advanced to sips of clears. On POD #2 (05/21), he tolerated advancement to clear liquid diet without nausea or vomiting. Bridge remained in place. On POD #3 (05/22), he was noted to be febrile to 101.2 and tachycardic to 110's overnight. Fever work up obtained and unremarkable. Electrolytes replaced as needed. Clear liquid diet continued. On POD #4 (05/23), heparin gtt discontinued and Eliquis resumed. Ostomy education continued. On POD #5 (05/24), erythema and firmness noted to mid abdomen. CT scan was obtained which demonstrated regions of inflammatory stranding and poorly organized edema adjacent to the ostomy site measuring approximately 6.8 x 6.7 cm with numerous foci of associated subcutaneous gas. No evidence of rim e nhancement to suggest mature abscess however findings may represent phlegmonous changes. I/D performed at bedside with drainage of blood tinged fluid. Culture obtained. Cefepime and flagyl started for antibiotic coverage. On POD #6 (05/25), erythema and induration remained stable where I/D was performed. Heparin gtt planned to be resumed in am. Cefepime and flagyl continued. Ostomy care and education provided. On POD #7 (05/26), heparin gtt resumed. He continued on a low fiber diet. On POD #8 (05/27), he continued on low fiber diet and IV Vanco, cefepime, and flagyl. On POD #9 (05/28), he remained leukopenic (WBC 3.7). He continued to tolerate a low fiber diet. Colostomy continued to function. He worked with ostomy nurses. Repeat CT scan performed today to evaluate for persistent collection but did not demonstrate any definitive abscess formation. On POD #10 (05/29) heparin gtt was transitioned to eliquis. He continued to progress. Tolerating a low fiber diet, pain well controlled, voiding spontaneously, ostomy active for stool and flatus, and OOB ambulating. At time of discharge he was instructed to complete a 14 day course of Augmentin with verbal understanding. Bridge was removed prior to discharge after discussion with Dr. Gay. At this time it is felt that this patient is stable for discharge home with services. Upon discussion with the attending physician, it was decided to discharge the patient on 05/29/2025. The patient was given instructions on diet, activity, medications, and follow up and when to return to the emergency department and call the physician's office. Please see patients chart for full details of this patient's hospital stay. Discharge Disposition Home With Health Care Services Code Status Procedures Full code Discharge Orders Amb Referral to Home Health Referral Priority: Routine Referral Type: Home Health Referred to Provider: HEMANTH WOLFE Number of Visits Requested: 999 Alternate periods of rest with activity Do not drive while taking narcotics Lifting restrictions Order Comments: Walk often during the day. Use your incentive spirometer often. No heavy lifting greater than 10 lbs until cleared by your surgeon. No strenuous activity Walk at least 3 times a day Call your doctor for: Black or tarry stools Call your doctor for: Fever or chills Call your doctor for: Inability to pass urine or blood in urine Call your doctor for: Persistant nausea or vomiting Call your doctor for: Redness, tenderness, or signs of infection (pain, swelling, redness, odor or green/yellow discharge around incision site) Order Comments: Temp >101.5 Call your doctor for: Severe uncontrolled pain not controlled by your medication Call 911 for: Order Comments: Call 911 if you experience chest pain or pressure, shortness of breath or difficulty breathing. Excessive bleeding, sudden difficulty in speaking or limb weakness/numbness, confusion or change in mental status. May shower daily No tub baths, hot tubs, or swimming for 2 weeks Wound care: Do not apply lotions, oils, creams,or powder to incision. Wound Care: Do not remove steri-strips or surgical glue. Wound Care: Expect mild bruising, swelling, and mild discomfort. Keep incision clean and dry. Wound Care: Leave open to air if not draining fluid. Wound Care: Wash around incision, do not rub or scrub incision. Gently pat dry. Additional Discharge Instructions Order Comments: 1.Measure and record ileostomy outputs daily. Please bring recordings to your follow-up visit 2.Drink at least 64 ounces of fluid daily 3.If you have to get up at night empty ostomy bag and take 8-12 fluid ounces of fluid 4.If you become dizzy, weak, have decreased or concentrated urine output; take 24 ounces of fluid and call the office 5.Empty ostomy bag when 1/3 to 1/2 full 6. If output greater than 1.5 liters a day notify office DISCHARGE DIET Diet Restricted Diet Diet Restrictions Low Fiber Future Appointments Date Time Provider Department Center 06/04/2025 2:20 PM Gabbie Song PA-C [facility] [place] Gabbie Song PA-C [address] [place] [id number] Go on 06/04/2025 post operative follow up, Call office with any questions or concerns prior Hemanth Wolfe MD [address] [place] [id number] Follow up KRYSTAL Villalba 05/29/2025 12:18 PM [1] No Known Allergies Cosigned by Radha Gay MD at 05/29/2025 2:06 PM EST documented in this encounter Discharge Instructions * Discharge Instr - Incision/Wound/Pressure Ulcer/Ostomy* Kierra Timmons RN - 05/25/2025 11:58 AM EDT Wound program consult for ostomy management Ostomy Pouch Change Empty pouch when 1/3-1/2 full Change pouch every 3-5 days Remove pouch with adhesive remover Cleanse skin with warm water only Apply barrier spray Measure stoma and cut wafer to size of stoma, [facility] [id number] applied Hold hand in place for 3 minutes documented in this encounter Medications at Time of Discharge acetaminophen (TYLENOL) 325 MG tabletIndications :Large bowel obstruction (HCC) Take 2 tablets (650 mg total) by mouth 4 times daily (every 6 hours) as needed for mild pain. 240 tablet 05/29/2025 06/28/2025 amLODIPine (NORVASC) 5 MG tabletIndications :Large bowel obstruction (HCC) Take 1 tablet (5 mg total) by mouth nightly. 05/29/2025 06/28/2025 amoxicillin-clavu lanate (AUGMENTIN) 875-125 MG per tabletIndications :Large bowel obstruction (HCC) Take 1 tablet by mouth every 12 (twelve) hours around the clock. 28 tablet 05/29/2025 06/12/2025 apixaban (ELIQUIS) 5 MG tabletIndications :Large bowel obstruction (HCC) Take 1 tablet (5 mg total) by mouth every 12 (twelve) hours around the clock. 05/29/2025 clonazePAM (KlonoPIN) 1 MG tabletIndications :Large bowel obstruction (HCC) Take 1 tablet (1 mg total) by mouth nightly. 05/29/2025 06/28/2025 lamoTRIgine (LaMICtal) 150 MG tabletIndications :Large bowel obstruction (HCC) Take 2 tablets (300 mg total) by mouth daily. 05/29/2025 06/28/2025 methocarbamol (ROBAXIN) 500 MG tabletIndications :Large bowel obstruction (HCC) Take 1 tablet (500 mg total) by mouth 4 (four) times a day as needed for muscle spasms. 12 tablet 05/29/2025 06/28/2025 methylphenidate (CONCERTA) 18 MG CR tabletIndications :Large bowel obstruction (HCC) Take 1 tablet (18 mg total) by mouth daily. Max Daily Amount: 18 mg 05/29/2025 06/04/2025 metoPROLOL SUCCINATE (TOPROL-XL) 50 MG 24 hr tabletIndications :Large bowel obstruction (HCC) Take 1 tablet (50 mg total) by mouth daily. 05/29/2025 06/28/2025 oxyCODONE (ROXICODONE) 5 MG immediate release tabletIndications :Large bowel obstruction (HCC) Take 1 tablet (5 mg total) by mouth every 4 (four) hours as needed for severe pain. Max Daily Amount: 30 mg 10 tablet 05/29/2025 risperiDONE (RisperDAL) 1 MG tabletIndications :Large bowel obstruction (HCC) Take 1 tablet (1 mg total) by mouth nightly. 05/29/2025 06/28/2025 documented as of this encounter Progress Notes * JIM Thompson - 05/29/2025 12:17 PM EST Colostomy bridge removed, only one suture intact to skin(medially), the lateral suture was intact on bridge, not fastened to skin.. No complications. Patient tolerated well. * Latonia Perry RN - 05/29/2025 10:35 AM EST 05/29/25 1034 Plan Plan Home w/ HC - [facility] Patient/Family in Agreement with Plan yes Final Discharge Disposition Code 06 - home with home health care Final Case Management Care Plan Note Summary: Per provider, patient is medically ready to transition home with services. Met patient at bedside, confirmed plan for home w/ HC through [facility]. Patients spouse to provide transportation home. Patient to be d/c'd on Eliquis - he would appreciate coupon. Patient also asking for couponfor Ensure drinks, message sent to nutrition who will follow up with patient. Confirmed that patient is able to obtain medications/food/necessities post discharge. W-10 faxed to HC agency. Final Destination: Home w/ HC Plan for home support/Caregiver/responsible person: Self, spouse Follow-up provider appointment: Per AVS/W-10 Equipment Ordered and Given at Discharge: Eliquis coupon Final Discharge Transportation: Spouse * Ana Goldberg MD - 05/29/2025 7:19 AM EST Daily General Surgery Progress Note Assessment & Plan Riana Coreas is a 60 y.o. male past medical history of GERD, hypertension, ADHD, PE on Eliquis,and rectosigmoid cancer with metastasis to liver/kidney/lungs on palliative chemotherapy, s/p rectal stent placement 03/20/25. Transferred from OSH with large bowel obstruction at stent site, is now s/p laparoscopic loop colostomy creation on 05/19/25. There was an area of erythema noted between ostomy/gregg port site, CT with edema, underwent bedside midline wound I&D on 05/24, and was started on vancomycin. There was no evidence of dehiscence, parastomal hernia, or obstruction. CT abdomen/pelvis on 05/28 showed interval improvement with no drainable fluid collections. Afebrile with benign abdominal exam and ostomy function. Plan - Discharge today with strict return precautions - Restart home eliquis, stop heparin gtt - Continue augmentin upon discharge - Follow wound culture - negative to date - Low fiber, low residue diet - Monitor vitals / strict I&Os - Pulmonary hygiene, IS, OOB and activity as tolerated - Please contact [facility] with any questions Subjective Pain well controlled. Tolerating diet with no nausea or vomiting. Has ostomy function. OOB, doing laps around floor. Voids spontaneously with no issues. Objective Last Vitals Pulse:64,Resp:18,BP:100/60,SpO2:97 %,Weight:80.9 kg (178 lb 5.6 oz) Temp Last 24 hrs: Temp Min: 97 ??F (36.1 ??C) Max: 97.9 ??F (36.6 ??C) Last temp: 97.3 ??F (36.3 ??C) (Tympanic) Intake/Output Summary (Last 24 hours) at 05/29/2025 0719 Last data filed at 05/29/2025 0600 Gross per 24 hour Intake 660 ml Output 3745 ml Net -3085 ml Physical Exam Gen: alert, no acute distress Card: regular rate Pulm: normal effort of breathing with no signs of acute respiratory distress. On room air. Abd: soft, nondistended, no TPP. Erythema is improving and is about 3cm wide surrounding surgical incision which is c/d/I with silver nitrate on top. Ostomy is pink and patent with liquid brown stooland gas in the bag. Skin: warm and dry VTE Time Out IMPROVE SCORE: 7 (05/17/2025 11:40 PM) Interpretation - High Risk Chemical Prophylaxis apixaban (ELIQUIS) tablet 5 mg Oral Every 12 hours scheduled [ORDER ON HOLD or LAST DOSE HELD - Please Review] heparin (porcine) IV infusion 25,000 units in 500 mL 0.45% NaCl (premix) Intravenous Continuous heparin (porcine) 1000 unit/mL injection 1,600 Units Intravenous Every 6 hours PRN heparin (porcine) 1000 unit/mL injection 2,400 Units Intravenous Every 6 hours PRN Apixaban, Heparin Sodium (Porcine) 5000 Units Last dose 05/26/2025 8:54 AM Mechanical Prophylaxis SCDs are ordered - Bilateral (Knee High) Labs: White Blood Cell Count Date Value Ref Range Status 05/28/2025 3.7 (L) 4.0 - 11.0 Thou/uL Final Hemoglobin Date Value Ref Range Status 05/28/2025 9.6 (L) 13.0 - 17.7 g/dL Final Hematocrit Date Value Ref Range Status 05/28/2025 30.4 (L) 39.0 - 54.0 % Final Platelet Count Date Value Ref Range Status 05/28/2025 340 150 - 450 Thou/uL Final Lab Results Component Value Date NA 135 (L) 05/25/2025 K 3.5 05/25/2025 CL 100 05/25/2025 CO2 22 05/25/2025 BUN 4 (L) 05/25/2025 CREAT 0.44 (L) 05/25/2025 GLUC 84 05/25/2025 Lab Results Component Value Date CALCIUM 8.3 (L) 05/25/2025 MG 1.8 05/25/2025 PHOS 3.0 05/25/2025 Lab Results Component Value Date AST 21 05/17/2025 ALT 10 05/17/2025 ALKPHOS 85 05/17/2025 BILITOT 1.0 05/17/2025 BILIDIR 0.2 05/17/2025 ALBUMIN 3.1 (L) 05/22/2025 PROT 6.9 05/17/2025 No results found for: AMYLASE , LIPASE Lab Results Component Value Date PTT 35 05/26/2025 LABPROT 14.0 (H) 05/26/2025 INR 1.2 05/26/[address] Abdomen+pelvis w/contrast Result Date: 05/24/2025 EXAMINATION: CT ABDOMEN AND PELVIS WITH CONTRAST CLINICAL INFORMATION: s/p lap loop colostomy for metastatic rectal cancer on Avastin now with redness/tenderness surrounding ostomy site. Concern for collecton, ? dehiscence as he is high risk second to chemo. COMPARISON: CT abdomen and pelvis 05/17/2025 CT abdomen and pelvis 04/07/2024 CT abdomen pelvis 12/07/2023 TECHNIQUE: Multidetector volumetricimaging was performed from the lung bases to the pubic symphysis following the administration of: Oral contrast: No Intravenous contrast: 80 mL Omnipaque 350 No contrast reaction reported. Sagittal and coronal reformatted images were obtained on the technologist's workstation. This CT examination was performed using dose optimization techniques as appropriate, variously including the following: *Automated exposure control *Adjustment of mA and/or kV according to patient size (this includes techniques or standardized protocols for targeted exams where dose is matched to indication/reason for ex am; i.e. extremities or head) *Use of iterative reconstruction technique Total exam dose-length product 381 mGy-cm. FINDINGS: VISUALIZED CHEST: Dependent bibasilar atelectasis. Small focus of groundglass in the medial aspect of the right lower lobe. No pleural effusion. Partially visualized right IJ CVC with tip terminating in right atrium. Coronary artery calcifications present. No pericardial effusion. LIVER, GALLBLADDER, AND BILIARY TREE: The liver is normal in size and shape. Redemonstration of multiple hypodensities within the right hepatic lobe, similar to most recent prior and grossly decrease in size from CT abdomen pelvis on 04/07/2024. Similar mild periportal edema. No definitive in traductal biliary dilation. Gallbladder is dilated measuring approximately 5.4 x 11.5 cm. No evidence of radiopaque stones, gallbladder wall thickening, or pericholecystic inflammatory changes. PANCREAS: Unremarkable. SPLEEN: Unremarkable. ADRENAL GLANDS: Unremarkable. KIDNEYS AND URETERS: The kidneys enhance symmetrically. The kidneys are normal in size, shape, and attenuation. No hydronephrosis, hydroureter, or calculi. Subcentimeter in bilateral kidneys which are too small to appropriately characterize and statistically likely benign renal cyst which is not require dedicated follow-up. GASTROINTESTINAL TRACT: Stomach is non-dilated. Multiple fluid-filled and gaseous distended small bowel, some of which are mildly dilated up to 3.4 cm. Status post loop colostomy with ostomy site in the ventral abdominal wall, left and midline. No large pelvic dilation. Similar circumferential thickening of the rectal and proximal sigmoid wall with rectal stent in grossly unchanged position. Grossly similar degree of presacral fat stranding/edema and prominent mesorectal lymph nodes as prior CT abdomen pelvis from 05/14/2025. Scattered colonic diverticulosis without evidence of acute diverticulitis. Appendix is unremarkable. ABDOMINAL WALL:Inflammatory stranding surrounds the ostomy site with an area of poorly organized edema measuring approximately 6.8 x 6.7 cm and numerous foci of associated subcutaneous gas tracking superiorly in the ventral soft tissues. No definitive rim enhancing collection. No definitive discontinuation of the ostomy [place] however evaluation limited in the absence of contrast. LYMPHOVASCULAR STRUCTURES: No bulky lymphadenopathy. Similar prominence of mesorectal lymph nodes. The aorta is normal in caliber. Mild aortoiliac atherosclerotic disease. BLADDER: Circumferential bladder wall thickening with multiple foci of gas present anti-dependently along the anterior bladder wall. Questionable loss of fat plane between the thickened rectosigmoid colon and posterior bladder wall (series 602, image 77). No definitive wall disruption or fistulization. PELVIC VISCERA: Prostatomegaly measuring approximately centimeters in transverse diameter. OSSEOUS STRUCTURES: No acute or suspicious osseous abnormality. PERITONEAL/RETROPERITONEAL: Grossly similar degree of presacral edema. No mass, focal thickening, or pneumoperitoneum. 1. Status post loop colostomy. Regions of inflammatory stranding and poorly organized edema adjacent to the ostomy site measuring approximately 6.8 x 6.7 cm with numerous foci of associated subcutaneous gas. No evidence of rim enhancement to suggest mature abscess however findings may represent phlegmonous changes. Additionally, given prominence of subcutaneous gas, cannot rule out necrotizing infection. Recommend biochemical and clinical correlation for further evaluation. 2. Circumferential bladder wall thickening concerning for cystitis. Multiple foci of gas seen anti-dependently along theanterior bladder wall, no Carlton in place. Cannot rule out gas-forming infection, recommend clinicalcorrelation for recent Carlton placement. 3. Multiple fluid-filled loops of small bowel with mild dilation up to 3.4 cm. No discrete transition point. Findings favor small bowel ileus given recent procedure. 4. Stable circumferential thickening of the rectosigmoid bowel wall with similar degree of presacral edema and prominent mesorectal lymph nodes. Rectal stent remains in unchanged position. 5. Redemonstration of multiple hypodensities within the right hepatic lobe, which appears grossly decreased in size since CT abdomen pelvis from 04/07/2024. Given history of known metastatic cancer status post chemotherapy, findings suggestive of improved metastatic lesions. 6. Small focus of groundglasswithin the medial aspect of right lower lobe may represent focal atelectasis. Cannot rule out infectious/inflammatory process. 7. Dilated gallbladder. No evidence of acute cholecystitis. 8. Prostatomegaly. This critical result was discussed with LEI SELLER by Dr. Demetra Crawford at 05/24/2025 3:20 PM EDT and it was ascertained that the content and urgency of the report was understood at the time of direct communication. Interpreted by: Munir Rawls MD Bezel Cutter I personally reviewed the images and the resident's preliminary report and AGREE with the report as it is now presented ([email or web address]). Sign: Ana Goldberg MD 05/29/2025 7:59 AM Otolaryngology PGY-1 General Surgery Service * Nuzhat Dubon MD - 05/28/2025 10:12 AM EST Daily General Surgery Progress Note Assessment & Plan Riana Coreas is a 60 y.o. male past medical history of GERD, hypertension, ADHD, PE on Eliquis,and rectosigmoid cancer with metastasis to liver/kidney/lungs on palliative chemotherapy, s/p rectal stent placement 03/20/25. Transferred from OSH with large bowel obstruction at stent site, is now s/p laparoscopic loop colostomy creation on 05/19/25. There was an area of erythema noted between ostomy/gregg port site, CT with edema, underwent bedside midline wound I&D on 05/24, and was started on vancomycin. There was no evidence of dehiscence, parastomal hernia, or obstruction. Plan Will obtain CT to evaluate for persistent collection - Monitor erythema which is marked - Follow wound culture - negative to date - Low fiber, low residue diet - Holding eliquis, will resume heparin drip - Continue IV vanco, cefepime and Flagyl - Monitor vitals / strict I&Os - Pulmonary hygiene, IS, OOB and activity as tolerated - Please contact [facility] with any questions Principal Problem: Large bowel obstruction (HCC) (POA: Yes) Active Problems: ADHD (POA: Unknown) HTN (hypertension) (POA: Unknown) History of pulmonary embolus (PE) (POA: Unknown) GERD (gastroesophageal reflux disease) (POA: Unknown) Rectal cancer metastasized to liver (HCC) (POA: Unknown) Anxiety (POA: Unknown) Severe malnutrition:Severe fat depletion(bicep/tricep fat pads) and severe muscle depletion (quadriceps and gastrocnemius) (POA: Yes) Resolved Problems: Subjective Abdominal pain well controlled. No nausea or vomiting. Ostomy bag with gas as stools. OOB and ambulating. Objective Last Vitals Pulse:64,Resp:18,BP:120/74,SpO2:99 %,Weight:80.9 kg (178 lb 5.6 oz) Temp Last 24 hrs: Temp Min: 96.5 ??F (35.8 ??C) Max: 98.1 ??F (36.7 ??C) Last temp: 97.4 ??F (36.3 ??C) (Tympanic) Intake/Output Summary (Last 24 hours) at 05/28/2025 1012 Last data filed at 05/28/2025 0900 Gross per 24 hour Intake 3607.29 ml Output 3750 ml Net -142.71 ml Physical Exam Gen: alert, no acute distress Card: regular rate Pulm: normal effort of breathing with no signs of acute respiratory distress. On room air. Abd: soft, nondistended, no tender. Erythema is improving and does not extend beyond the marked boarders. Ostomy is pink and patent. There is stool and gas in the bag. Skin: warm and dry VTE Time Out IMPROVE SCORE: 7 (05/17/2025 11:40 PM) Interpretation - High Risk Chemical Prophylaxis apixaban (ELIQUIS) tablet 5 mg Oral Every 12 hours scheduled [ORDER ON HOLD or LAST DOSE HELD - Please Review] heparin (porcine) IV infusion 25,000 units in 500 mL 0.45% NaCl (premix) Intravenous Continuous heparin (porcine) 1000 unit/mL injection 1,600 Units Intravenous Every 6 hours PRN heparin (porcine) 1000 unit/mL injection 2,400 Units Intravenous Every 6 hours PRN Apixaban, Heparin Sodium (Porcine) 5000 Units Last dose 05/26/2025 8:54 AM Mechanical Prophylaxis SCDs are ordered - Bilateral (Knee High) Labs: White Blood Cell Count Date Value Ref Range Status 05/28/2025 3.7 (L) 4.0 - 11.0 Thou/uL Final Hemoglobin Date Value Ref Range Status 05/28/2025 9.6 (L) 13.0 - 17.7 g/dL Final Hematocrit Date Value Ref Range Status 05/28/2025 30.4 (L) 39.0 - 54.0 % Final Platelet Count Date Value Ref Range Status 05/28/2025 340 150 - 450 Thou/uL Final Lab Results Component Value Date NA 135 (L) 05/25/2025 K 3.5 05/25/2025 CL 100 05/25/2025 CO2 22 05/25/2025 BUN 4 (L) 05/25/2025 CREAT 0.44 (L) 05/25/2025 GLUC 84 05/25/2025 Lab Results Component Value Date CALCIUM 8.3 (L) 05/25/2025 MG 1.8 05/25/2025 PHOS 3.0 05/25/2025 Lab Results Component Value Date AST 21 05/17/2025 ALT 10 05/17/2025 ALKPHOS 85 05/17/2025 BILITOT 1.0 05/17/2025 BILIDIR 0.2 05/17/2025 ALBUMIN 3.1 (L) 05/22/2025 PROT 6.9 05/17/2025 No results found for: AMYLASE , LIPASE Lab Results Component Value Date PTT 35 05/26/2025 LABPROT 14.0 (H) 05/26/2025 INR 1.2 05/26/[address] Abdomen+pelvis w/contrast Result Date: 05/24/2025 EXAMINATION: CT ABDOMEN AND PELVIS WITH CONTRAST CLINICAL INFORMATION: s/p lap loop colostomy for metastatic rectal cancer on Avastin now with redness/tenderness surrounding ostomy site. Concern for collecton, ? dehiscence as he is high risk second to chemo. COMPARISON: CT abdomen and pelvis 05/17/2025 CT abdomen and pelvis 04/07/2024 CT abdomen pelvis 12/07/2023 TECHNIQUE: Multidetector volumetricimaging was performed from the lung bases to the pubic symphysis following the administration of: Oral contrast: No Intravenous contrast: 80 mL Omnipaque 350 No contrast reaction reported. Sagittal and coronal reformatted images were obtained on the technologist's workstation. This CT examination was performed using dose optimization techniques as appropriate, variously including the following: *Automated exposure control *Adjustment of mA and/or kV according to patient size (this includes techniques or standardized protocols for targeted exams where dose is matched to indication/reason for ex am; i.e. extremities or head) *Use of iterative reconstruction technique Total exam dose-length product 381 mGy-cm. FINDINGS: VISUALIZED CHEST: Dependent bibasilar atelectasis. Small focus of groundglass in the medial aspect of the right lower lobe. No pleural effusion. Partially visualized right IJ CVC with tip terminating in right atrium. Coronary artery calcifications present. No pericardial effusion. LIVER, GALLBLADDER, AND BILIARY TREE: The liver is normal in size and shape. Redemonstration of multiple hypodensities within the right hepatic lobe, similar to most recent prior and grossly decrease in size from CT abdomen pelvis on 04/07/2024. Similar mild periportal edema. No definitive in traductal biliary dilation. Gallbladder is dilated measuring approximately 5.4 x 11.5 cm. No evidence of radiopaque stones, gallbladder wall thickening, or pericholecystic inflammatory changes. PANCREAS: Unremarkable. SPLEEN: Unremarkable. ADRENAL GLANDS: Unremarkable. KIDNEYS AND URETERS: The kidneys enhance symmetrically. The kidneys are normal in size, shape, and attenuation. No hydronephrosis, hydroureter, or calculi. Subcentimeter in bilateral kidneys which are too small to appropriately characterize and statistically likely benign renal cyst which is not require dedicated follow-up. GASTROINTESTINAL TRACT: Stomach is non-dilated. Multiple fluid-filled and gaseous distended small bowel, some of which are mildly dilated up to 3.4 cm. Status post loop colostomy with ostomy site in the ventral abdominal wall, left and midline. No large pelvic dilation. Similar circumferential thickening of the rectal and proximal sigmoid wall with rectal stent in grossly unchanged position. Grossly similar degree of presacral fat stranding/edema and prominent mesorectal lymph nodes as prior CT abdomen pelvis from 05/14/2025. Scattered colonic diverticulosis without evidence of acute diverticulitis. Appendix is unremarkable. ABDOMINAL WALL:Inflammatory stranding surrounds the ostomy site with an area of poorly organized edema measuring approximately 6.8 x 6.7 cm and numerous foci of associated subcutaneous gas tracking superiorly in the ventral soft tissues. No definitive rim enhancing collection. No definitive discontinuation of the ostomy [place] however evaluation limited in the absence of contrast. LYMPHOVASCULAR STRUCTURES: No bulky lymphadenopathy. Similar prominence of mesorectal lymph nodes. The aorta is normal in caliber. Mild aortoiliac atherosclerotic disease. BLADDER: Circumferential bladder wall thickening with multiple foci of gas present anti-dependently along the anterior bladder wall. Questionable loss of fat plane between the thickened rectosigmoid colon and posterior bladder wall (series 602, image 77). No definitive wall disruption or fistulization. PELVIC VISCERA: Prostatomegaly measuring approximately centimeters in transverse diameter. OSSEOUS STRUCTURES: No acute or suspicious osseous abnormality. PERITONEAL/RETROPERITONEAL: Grossly similar degree of presacral edema. No mass, focal thickening, or pneumoperitoneum. 1. Status post loop colostomy. Regions of inflammatory stranding and poorly organized edema adjacent to the ostomy site measuring approximately 6.8 x 6.7 cm with numerous foci of associated subcutaneous gas. No evidence of rim enhancement to suggest mature abscess however findings may represent phlegmonous changes. Additionally, given prominence of subcutaneous gas, cannot rule out necrotizing infection. Recommend biochemical and clinical correlation for further evaluation. 2. Circumferential bladder wall thickening concerning for cystitis. Multiple foci of gas seen anti-dependently along theanterior bladder wall, no Carlton in place. Cannot rule out gas-forming infection, recommend clinicalcorrelation for recent Carlton placement. 3. Multiple fluid-filled loops of small bowel with mild dilation up to 3.4 cm. No discrete transition point. Findings favor small bowel ileus given recent procedure. 4. Stable circumferential thickening of the rectosigmoid bowel wall with similar degree of presacral edema and prominent mesorectal lymph nodes. Rectal stent remains in unchanged position. 5. Redemonstration of multiple hypodensities within the right hepatic lobe, which appears grossly decreased in size since CT abdomen pelvis from 04/07/2024. Given history of known metastatic cancer status post chemotherapy, findings suggestive of improved metastatic lesions. 6. Small focus of groundglasswithin the medial aspect of right lower lobe may represent focal atelectasis. Cannot rule out infectious/inflammatory process. 7. Dilated gallbladder. No evidence of acute cholecystitis. 8. Prostatomegaly. This critical result was discussed with LEI SELLER by Dr. Demetra Crawford at 05/24/2025 3:20 PM EDT and it was ascertained that the content and urgency of the report was understood at the time of direct communication. Interpreted by: Munir Rawls MD Bezel Cutter I personally reviewed the images and the resident's preliminary report and AGREE with the report as it is now presented ([email or web address]). Electronically Signed Nuzhat Dubon MD General Surgery PGY-1 05/28/2025 10:12 AM Cosigned by Radha Gay MD at 05/28/2025 1:26 PM EST Associated attestation - Radha Gay MD - 05/28/2025 1:26 PM EST Surgery Attending Attestation I have personally interviewed and examined the patient and reviewed the note below. I agree with the history, exam, assessment and plan as detailed in the note with the following additions/exceptions/observations: Erythema and induration have improved from prior. He remains afebrile. He remains leukopenic, current WBC 3.7. He states his pain is improved. He is tolerating a diet. His colostomy continues to function. Repeat CT scan was ordered today and I do not see any definitive abscess formation. Will plan to send home tomorrow on oral antibiotics if continuing to improve. Radha Gay MD 1:22 PM * Karengisselle Jones, OT - 05/28/2025 8:43 AM EST Occupational Therapy Progress Note Assessment & Progress Summary: Patient seen for follow up OT session, presenting on floor level of care +PIVs. Riana is making good functional progress, though continues to present w/ deficits in activity tolerance, strength and balance. He completed all functional mobility w/ CGA-SBA and BUE support on PIV pole. Cueingprovided for pacing w/ SOB noted during mobility. Intermittent assist needed for LB dressing tasks,w/ patient able to manage UB ADLs unassisted. Reviewed ostomy management, including ADL modifications and adaptations to reduce pain w/ mobility and positioning. Riana will continue to benefit from further OT services in house to progress towards PLOF. Anticipate he will be able to transition home w/ support from spouse once medically cleared. Recommend RW use and shower chair. Progress Towards Goals: progress toward functional goals is good Outcome Measures: The Activity Measure for Post-Acute Care (AM-PAC) Daily Activity Inpatient Short Form (6-clicks) rafa standardized measure used to quantify deficits in self-care. The total score of the measure ranges from 6-24. A higher score indicates a higher level of independence with self-care tasks. Current [facility] Daily Activity Score: 20 Precautions/Restrictions: fall, other (see comments) (skin) Rehab Plan of Care OT will continue to follow 2-3x/week while in house w/ focus on LB ADL management, ostomy care, activity pacing, ECTs. Encourage OOB to chair for meals and active engagement in all self care tasks. -OT Recommendations for Staff: Ax1 w/ Rw to bathroom -OT Frequency during Hospitalization: 2-3 times/wk -Progressive Mobility Level: Level 5 -Plan of Care Reviewed With: care plan/treatment goals reviewed, participants included, patient Education: OT role, POC, and recommendations Treatment Interventions/Objective Data Interventions to Optimize ADL Performance Feeding: independent w/ self feeding seated in recliner at EOS Dressing: min A to don hospital pants seated to thread, assist to hike and fasten in standing 2/2 lines/tubes, education provided on technique to don and clothing recommendations for home Transfers and Functional Mobility: SBA supine>sit EOB w/ HOB minimally elevated, cueing for log roll method, CGA sit<>stand, CGA-SBA for functional mobility w/in room and hallway w/ BUE support on PIV pole, cueing for pacing Therapeutic Activity: Patient participated in functional mobility as detailed above w/ focus on activity pacing and RW management. Reviewed positioning recommendations w/ ostomy care- including log roll for bed mobility, use of pillow or blanket for padding w/ seatbelt. Endurance/Activity Tolerance: Good for session. SOB w/ activity. Endorsing abdominal pain w/ mobility, but able to fully participate. Subjective You're the one who told me to put a pillow over my belly when I cough. Flowsheet Data 05/28/25 0843 OT Time and Intention OT Follow-Up Visit follow up treatment Mode of Treatment individual therapy;occupational therapy Patient Effort good Symptoms Noted During/After Treatment fatigue;shortness of breath General Information Patient Profile Reviewed yes Patient/Family/Caregiver Comments/Observations You're the one who told me to put a pillow over my belly when I cough. General Observations of Patient Received resting in bed, alert and agreeable to OT. +PIVs Existing Precautions/Restrictions fall;other (see comments) (skin) Pain Pre/Posttreatment Pain Comment (Word Scale) endorsing abdominal pain w/ mobility, did not quantify Coping Observed Emotional State calm;cooperative Verbalized Emotional State acceptance Trust Relationship/Rapport care explained;choices provided;questions answered;questions encouraged Family/Support Persons patient Involvement in Care participating in care Family/Support System Care support provided;self-care encouraged Safety Safety WDL WDL All Alarms alarm(s) activated and audible Enhanced Safety Measures chair alarm set Progressive Mobility Progressive Mobility Level Achieved Ambulation [facility] Daily Activity Putting on and taking off Lower Body Clothing? 3 Bathing (including washing/rinsing/drying)? 3 Toileting (includes using toilet, bedpan, or urinal)? 3 Putting on and taking off upper body clothing? 3 Taking care of personal grooming such as brushing teeth? 4 Eating meals? 4 [facility] Daily Activity Score 20 Progress Summary (OT) Progress Toward Functional Goals (OT) progress toward functional goals is good Therapy Plan Review/Discharge Plan (OT) Therapy Plan Review (OT) care plan/treatment goals reviewed;participants included;patient OT Recommendations for Staff Ax1 w/ Rw to bathroom Transfer Goal 1 (OT) Progress/Outcome (Transfer Goal 1, OT) good progress toward goal Bathing Goal 1 (OT) Progress/Outcomes (Bathing Goal 1, OT) good progress toward goal Dressing Goal 1 (OT) Progress/Outcome (Dressing Goal 1, OT) good progress toward goal Toileting Goal 1 (OT) Progress/Outcome (Toileting Goal 1, OT) goal ongoing Sign: Karen Jones OT * Mariama Ribera MD - 05/27/2025 5:10 AM EST Daily General Surgery Progress Note Assessment & Plan Riana Coreas is a 60 y.o. male past medical history of GERD, hypertension, ADHD, PE on Eliquis,and rectosigmoid cancer with metastasis to liver/kidney/lungs on palliative chemotherapy, s/p rectal stent placement 03/20/25. Transferred from OSH with large bowel obstruction at stent site, is now s/p laparoscopic loop colostomy creation on 05/19/25. There was an area of erythema noted between ostomy/gregg port site, CT with edema, underwent bedside midline wound I&D on 05/24, and was started on vancomycin. There was no evidence of dehiscence, parastomal hernia, or obstruction. Plan - Monitor erythema which is marked - Follow wound culture - Low fiber, low residue diet - Holding eliquis, will resume heparin drip - Continue IV vanco, cefepime and Flagyl - Monitor vitals / strict I&Os - Pulmonary hygiene, IS, OOB and activity as tolerated - Please contact [facility] with any questions Principal Problem: Large bowel obstruction (HCC) (POA: Yes) Active Problems: ADHD (POA: Unknown) HTN (hypertension) (POA: Unknown) History of pulmonary embolus (PE) (POA: Unknown) GERD (gastroesophageal reflux disease) (POA: Unknown) Rectal cancer metastasized to liver (HCC) (POA: Unknown) Anxiety (POA: Unknown) Severe malnutrition:Severe fat depletion(bicep/tricep fat pads) and severe muscle depletion (quadriceps and gastrocnemius) (POA: Yes) Resolved Problems: Subjective No events overnight. Abdominal pain well controlled. Tolerating diet with minimal nausea. Ostomy bag with gas as stools. OOB and ambulating. Objective Last Vitals Pulse:77,Resp:16,BP:130/82,SpO2:99 %,Weight:80.9 kg (178 lb 5.6 oz) Temp Last 24 hrs: Temp Min: 96.8 ??F (36 ??C) Max: 98.6 ??F (37 ??C) Last temp: 96.9 ??F (36.1 ??C) (Tympanic) Intake/Output Summary (Last 24 hours) at 05/27/2025 0510 Last data filed at 05/27/2025 0404 Gross per 24 hour Intake 2695.61 ml Output 4200 ml Net -1504.39 ml Physical Exam Gen: alert, no acute distress Card: regular rate Pulm: normal effort of breathing with no signs of acute respiratory distress. On room air. Abd: soft, nondistended, no tender. Erythema is improving and does not extend beyond the marked boarders. Ostomy is pink and patent. There is stool and gas in the bag. Skin: warm and dry VTE Time Out IMPROVE SCORE: 7 (05/17/2025 11:40 PM) Interpretation - High Risk Chemical Prophylaxis apixaban (ELIQUIS) tablet 5 mg Oral Every 12 hours scheduled [ORDER ON HOLD or LAST DOSE HELD - Please Review] heparin (porcine) IV infusion 25,000 units in 500 mL 0.45% NaCl (premix) Intravenous Continuous heparin (porcine) 1000 unit/mL injection 1,600 Units Intravenous Every 6 hours PRN heparin (porcine) 1000 unit/mL injection 2,400 Units Intravenous Every 6 hours PRN Apixaban 5 mg Last dose 05/24/2025 10:14 AM Heparin (Porcine) in NaCl, Heparin Sodium (Porcine) 5000 Units Last dose 05/26/2025 8:54 AM Mechanical Prophylaxis SCDs are ordered - Bilateral (Knee High) Labs: White Blood Cell Count Date Value Ref Range Status 05/26/2025 3.8 (L) 4.0 - 11.0 Thou/uL Final Hemoglobin Date Value Ref Range Status 05/26/2025 10.5 (L) 13.0 - 17.7 g/dL Final Hematocrit Date Value Ref Range Status 05/26/2025 33.3 (L) 39.0 - 54.0 % Final Platelet Count Date Value Ref Range Status 05/26/2025 336 150 - 450 Thou/uL Final Lab Results Component Value Date NA 135 (L) 05/25/2025 K 3.5 05/25/2025 CL 100 05/25/2025 CO2 22 05/25/2025 BUN 4 (L) 05/25/2025 CREAT 0.44 (L) 05/25/2025 GLUC 84 05/25/2025 Lab Results Component Value Date CALCIUM 8.3 (L) 05/25/2025 MG 1.8 05/25/2025 PHOS 3.0 05/25/2025 Lab Results Component Value Date AST 21 05/17/2025 ALT 10 05/17/2025 ALKPHOS 85 05/17/2025 BILITOT 1.0 05/17/2025 BILIDIR 0.2 05/17/2025 ALBUMIN 3.1 (L) 05/22/2025 PROT 6.9 05/17/2025 No results found for: AMYLASE , LIPASE Lab Results Component Value Date PTT 35 05/26/2025 LABPROT 14.0 (H) 05/26/2025 INR 1.2 05/26/[address] Abdomen+pelvis w/contrast Result Date: 05/24/2025 EXAMINATION: CT ABDOMEN AND PELVIS WITH CONTRAST CLINICAL INFORMATION: s/p lap loop colostomy for metastatic rectal cancer on Avastin now with redness/tenderness surrounding ostomy site. Concern for collecton, ? dehiscence as he is high risk second to chemo. COMPARISON: CT abdomen and pelvis 05/17/2025 CT abdomen and pelvis 04/07/2024 CT abdomen pelvis 12/07/2023 TECHNIQUE: Multidetector volumetricimaging was performed from the lung bases to the pubic symphysis following the administration of: Oral contrast: No Intravenous contrast: 80 mL Omnipaque 350 No contrast reaction reported. Sagittal and coronal reformatted images were obtained on the technologist's workstation. This CT examination was performed using dose optimization techniques as appropriate, variously including the following: *Automated exposure control *Adjustment of mA and/or kV according to patient size (this includes techniques or standardized protocols for targeted exams where dose is matched to indication/reason for ex am; i.e. extremities or head) *Use of iterative reconstruction technique Total exam dose-length product 381 mGy-cm. FINDINGS: VISUALIZED CHEST: Dependent bibasilar atelectasis. Small focus of groundglass in the medial aspect of the right lower lobe. No pleural effusion. Partially visualized right IJ CVC with tip terminating in right atrium. Coronary artery calcifications present. No pericardial effusion. LIVER, GALLBLADDER, AND BILIARY TREE: The liver is normal in size and shape. Redemonstration of multiple hypodensities within the right hepatic lobe, similar to most recent prior and grossly decrease in size from CT abdomen pelvis on 04/07/2024. Similar mild periportal edema. No definitive in traductal biliary dilation. Gallbladder is dilated measuring approximately 5.4 x 11.5 cm. No evidence of radiopaque stones, gallbladder wall thickening, or pericholecystic inflammatory changes. PANCREAS: Unremarkable. SPLEEN: Unremarkable. ADRENAL GLANDS: Unremarkable. KIDNEYS AND URETERS: The kidneys enhance symmetrically. The kidneys are normal in size, shape, and attenuation. No hydronephrosis, hydroureter, or calculi. Subcentimeter in bilateral kidneys which are too small to appropriately characterize and statistically likely benign renal cyst which is not require dedicated follow-up. GASTROINTESTINAL TRACT: Stomach is non-dilated. Multiple fluid-filled and gaseous distended small bowel, some of which are mildly dilated up to 3.4 cm. Status post loop colostomy with ostomy site in the ventral abdominal wall, left and midline. No large pelvic dilation. Similar circumferential thickening of the rectal and proximal sigmoid wall with rectal stent in grossly unchanged position. Grossly similar degree of presacral fat stranding/edema and prominent mesorectal lymph nodes as prior CT abdomen pelvis from 05/14/2025. Scattered colonic diverticulosis without evidence of acute diverticulitis. Appendix is unremarkable. ABDOMINAL WALL:Inflammatory stranding surrounds the ostomy site with an area of poorly organized edema measuring approximately 6.8 x 6.7 cm and numerous foci of associated subcutaneous gas tracking superiorly in the ventral soft tissues. No definitive rim enhancing collection. No definitive discontinuation of the ostomy [place] however evaluation limited in the absence of contrast. LYMPHOVASCULAR STRUCTURES: No bulky lymphadenopathy. Similar prominence of mesorectal lymph nodes. The aorta is normal in caliber. Mild aortoiliac atherosclerotic disease. BLADDER: Circumferential bladder wall thickening with multiple foci of gas present anti-dependently along the anterior bladder wall. Questionable loss of fat plane between the thickened rectosigmoid colon and posterior bladder wall (series 602, image 77). No definitive wall disruption or fistulization. PELVIC VISCERA: Prostatomegaly measuring approximately centimeters in transverse diameter. OSSEOUS STRUCTURES: No acute or suspicious osseous abnormality. PERITONEAL/RETROPERITONEAL: Grossly similar degree of presacral edema. No mass, focal thickening, or pneumoperitoneum. 1. Status post loop colostomy. Regions of inflammatory stranding and poorly organized edema adjacent to the ostomy site measuring approximately 6.8 x 6.7 cm with numerous foci of associated subcutaneous gas. No evidence of rim enhancement to suggest mature abscess however findings may represent phlegmonous changes. Additionally, given prominence of subcutaneous gas, cannot rule out necrotizing infection. Recommend biochemical and clinical correlation for further evaluation. 2. Circumferential bladder wall thickening concerning for cystitis. Multiple foci of gas seen anti-dependently along theanterior bladder wall, no Carlton in place. Cannot rule out gas-forming infection, recommend clinicalcorrelation for recent Carlton placement. 3. Multiple fluid-filled loops of small bowel with mild dilation up to 3.4 cm. No discrete transition point. Findings favor small bowel ileus given recent procedure. 4. Stable circumferential thickening of the rectosigmoid bowel wall with similar degree of presacral edema and prominent mesorectal lymph nodes. Rectal stent remains in unchanged position. 5. Redemonstration of multiple hypodensities within the right hepatic lobe, which appears grossly decreased in size since CT abdomen pelvis from 04/07/2024. Given history of known metastatic cancer status post chemotherapy, findings suggestive of improved metastatic lesions. 6. Small focus of groundglasswithin the medial aspect of right lower lobe may represent focal atelectasis. Cannot rule out infectious/inflammatory process. 7. Dilated gallbladder. No evidence of acute cholecystitis. 8. Prostatomegaly. This critical result was discussed with LEI SELLER by Dr. Demetra Crawford at 05/24/2025 3:20 PM EDT and it was ascertained that the content and urgency of the report was understood at the time of direct communication. Interpreted by: Munir Rawls MD Bezel Cutter I personally reviewed the images and the resident's preliminary report and AGREE with the report as it is now presented ([email or web address]). Electronically Signed Mariama Ribera MD General Surgery PGY-1 05/27/2025 5:10 AM * Radha Trinidad PharmD - 05/26/2025 10:33 AM EDT Pharmacokinetic Consult - Vancomycin Follow Up Note Riana Coreas is a 60 y.o. male currently receiving vancomycin 1750 mg IV every 12 hours for cellulitis. Assessment: Analysis of the most recent level(s) using [employer] gives the following patient-specific pharmacokinetic parameters: CL: 7.03 L/hr V: 59.1 L T 1/2: 6.14 hours Using these values, the current vancomycin regimen is predicted to result in an AUC24 of 497 (correlated steady-state trough of 11.2 mcg/mL), which is within target AUC of 400-600. At this time, we will continue current regimen. The pharmacy team will plan to obtain the next level within 5-7 days. Pharmacy will continue to follow the patient's renal function, culture results, and clinical progress daily. Labs: Creatinine Date/Time Value Ref Range Status 05/25/2025 06:30 AM 0.44 (L) 0.50 - 1.30 mg/dL Final 05/23/2025 05:15 AM 0.48 (L) 0.50 - 1.30 mg/dL Final 05/22/2025 03:35 PM 0.41 (L) 0.50 - 1.30 mg/dL Final Blood Urea Nitrogen (BUN) Date/Time Value Ref Range Status 05/25/2025 06:30 AM 4 (L) 8 - 21 mg/dL Final 05/23/2025 05:15 AM 9 8 - 21 mg/dL Final 05/22/2025 03:35 PM 8 8 - 21 mg/dL Final Vancomycin, Random Date/Time Value Ref Range Status 05/26/2025 09:00 AM 8 mg/L Final Comment: No reference range established for random levels. Estimated Creatinine Clearance: 205 mL/min (A) (by C-G formula based on SCr of 0.44 mg/dL (L)). Radha Trinidad PharmD * Jessica Champion, - 05/26/2025 6:04 AM EDT Daily General Surgery Progress Note Assessment & Plan Riana Coreas is a 60 y.o. male PMHx GERD, htn, adhd, PE, rectosigmoid ca with metastasis to liver/kidney/lungs on palliative chemotherapy, rectal stent placement 03/20/25 OSH presented with LBO athis stent site now s/p laparoscopic loop colostomy creation on 05/19. There was an area of erythemanoted between ostomy/gregg port site, CT with edema, underwent incision and drainage, and started on vancomycin. There was no evidence of dehiscence, parastomal hernia, or obstruction. Continue vanco/cef/flagyl. Plan - Diet: Low fiber, low residue - Holding eliquis, heparin drip to resume at 10 AM on 05/26 - Monitor erythema which is marked - Continue IV antibiotics - DVT ppx: SQH, SCDs - Pain control - Monitor vitals / strict I&Os, Pulmonary hygiene, IS, OOB and activity as tolerated - Please contact [facility] with any questions Principal Problem: Large bowel obstruction (HCC) (POA: Yes) Active Problems: ADHD (POA: Unknown) HTN (hypertension) (POA: Unknown) History of pulmonary embolus (PE) (POA: Unknown) GERD (gastroesophageal reflux disease) (POA: Unknown) Rectal cancer metastasized to liver (HCC) (POA: Unknown) Anxiety (POA: Unknown) Severe malnutrition:Severe fat depletion(bicep/tricep fat pads) and severe muscle depletion (quadriceps and gastrocnemius) (POA: Yes) Resolved Problems: Subjective POD 7. No acute events overnight. Pain currently well controlled. No nausea or vomiting. He was having his ostomy emptied when I entered the room. Objective Last Vitals Pulse:78,Resp:18,BP:116/70,SpO2:98 %,Weight:87.6 kg (193 lb 2 oz) Temp Last 24 hrs: Temp Min: 97.3 ??F (36.3 ??C) Max: 99.1 ??F (37.3 ??C) Last temp: 98.2 ??F (36.8 ??C) (Tympanic) Intake/Output Summary (Last 24 hours) at 05/26/2025 0605 Last data filed at 05/26/2025 0018 Gross per 24 hour Intake 750 ml Output 2200 ml Net -1450 ml Physical Exam Gen: alert, no acute distress Card: regular rate Pulm: normal effort of breathing with no signs of acute respiratory distress. On room air. Abd: soft, nondistended, no TTP. Erythema between the colostomy and midline Gregg port does not extend beyond the marked boarders. Ostomy is pink and patent. There is stool and gas in the bag. Skin: warm and dry VTE Time Out IMPROVE SCORE: 7 (05/17/2025 11:40 PM) Interpretation - High Risk Chemical Prophylaxis apixaban (ELIQUIS) tablet 5 mg Oral Every 12 hours scheduled [ORDER ON HOLD or LAST DOSE HELD - Please Review] heparin (porcine) 5000 unit/mL injection 5,000 Units Subcutaneous Every 8 hours scheduled Apixaban 5 mg Last dose 05/24/2025 10:14 AM Heparin (Porcine) in NaCl, Heparin Sodium (Porcine) 5000 Units Last dose 05/26/2025 12:18 AM Mechanical Prophylaxis SCDs are ordered - Bilateral (Knee High) Labs: White Blood Cell Count Date Value Ref Range Status 05/25/2025 4.4 4.0 - 11.0 Thou/uL Final Hemoglobin Date Value Ref Range Status 05/25/2025 9.1 (L) 13.0 - 17.7 g/dL Final Hematocrit Date Value Ref Range Status 05/25/2025 28.2 (L) 39.0 - 54.0 % Final Platelet Count Date Value Ref Range Status 05/25/2025 271 150 - 450 Thou/uL Final Lab Results Component Value Date NA 135 (L) 05/25/2025 K 3.5 05/25/2025 CL 100 05/25/2025 CO2 22 05/25/2025 BUN 4 (L) 05/25/2025 CREAT 0.44 (L) 05/25/2025 GLUC 84 05/25/2025 Lab Results Component Value Date CALCIUM 8.3 (L) 05/25/2025 MG 1.8 05/25/2025 PHOS 3.0 05/25/2025 Lab Results Component Value Date AST 21 05/17/2025 ALT 10 05/17/2025 ALKPHOS 85 05/17/2025 BILITOT 1.0 05/17/2025 BILIDIR 0.2 05/17/2025 ALBUMIN 3.1 (L) 05/22/2025 PROT 6.9 05/17/2025 No results found for: AMYLASE , LIPASE Lab Results Component Value Date PTT 31 05/20/2025 LABPROT 16.3 (H) 05/20/2025 INR 1.4 05/20/[address] Abdomen+pelvis w/contrast Result Date: 05/24/2025 EXAMINATION: CT ABDOMEN AND PELVIS WITH CONTRAST CLINICAL INFORMATION: s/p lap loop colostomy for metastatic rectal cancer on Avastin now with redness/tenderness surrounding ostomy site. Concern for collecton, ? dehiscence as he is high risk second to chemo. COMPARISON: CT abdomen and pelvis 05/17/2025 CT abdomen and pelvis 04/07/2024 CT abdomen pelvis 12/07/2023 TECHNIQUE: Multidetector volumetricimaging was performed from the lung bases to the pubic symphysis following the administration of: Oral contrast: No Intravenous contrast: 80 mL Omnipaque 350 No contrast reaction reported. Sagittal and coronal reformatted images were obtained on the technologist's workstation. This CT examination was performed using dose optimization techniques as appropriate, variously including the following: *Automated exposure control *Adjustment of mA and/or kV according to patient size (this includes techniques or standardized protocols for targeted exams where dose is matched to indication/reason for ex am; i.e. extremities or head) *Use of iterative reconstruction technique Total exam dose-length product 381 mGy-cm. FINDINGS: VISUALIZED CHEST: Dependent bibasilar atelectasis. Small focus of groundglass in the medial aspect of the right lower lobe. No pleural effusion. Partially visualized right IJ CVC with tip terminating in right atrium. Coronary artery calcifications present. No pericardial effusion. LIVER, GALLBLADDER, AND BILIARY TREE: The liver is normal in size and shape. Redemonstration of multiple hypodensities within the right hepatic lobe, similar to most recent prior and grossly decrease in size from CT abdomen pelvis on 04/07/2024. Similar mild periportal edema. No definitive in traductal biliary dilation. Gallbladder is dilated measuring approximately 5.4 x 11.5 cm. No evidence of radiopaque stones, gallbladder wall thickening, or pericholecystic inflammatory changes. PANCREAS: Unremarkable. SPLEEN: Unremarkable. ADRENAL GLANDS: Unremarkable. KIDNEYS AND URETERS: The kidneys enhance symmetrically. The kidneys are normal in size, shape, and attenuation. No hydronephrosis, hydroureter, or calculi. Subcentimeter in bilateral kidneys which are too small to appropriately characterize and statistically likely benign renal cyst which is not require dedicated follow-up. GASTROINTESTINAL TRACT: Stomach is non-dilated. Multiple fluid-filled and gaseous distended small bowel, some of which are mildly dilated up to 3.4 cm. Status post loop colostomy with ostomy site in the ventral abdominal wall, left and midline. No large pelvic dilation. Similar circumferential thickening of the rectal and proximal sigmoid wall with rectal stent in grossly unchanged position. Grossly similar degree of presacral fat stranding/edema and prominent mesorectal lymph nodes as prior CT abdomen pelvis from 05/14/2025. Scattered colonic diverticulosis without evidence of acute diverticulitis. Appendix is unremarkable. ABDOMINAL WALL:Inflammatory stranding surrounds the ostomy site with an area of poorly organized edema measuring approximately 6.8 x 6.7 cm and numerous foci of associated subcutaneous gas tracking superiorly in the ventral soft tissues. No definitive rim enhancing collection. No definitive discontinuation of the ostomy [place] however evaluation limited in the absence of contrast. LYMPHOVASCULAR STRUCTURES: No bulky lymphadenopathy. Similar prominence of mesorectal lymph nodes. The aorta is normal in caliber. Mild aortoiliac atherosclerotic disease. BLADDER: Circumferential bladder wall thickening with multiple foci of gas present anti-dependently along the anterior bladder wall. Questionable loss of fat plane between the thickened rectosigmoid colon and posterior bladder wall (series 602, image 77). No definitive wall disruption or fistulization. PELVIC VISCERA: Prostatomegaly measuring approximately centimeters in transverse diameter. OSSEOUS STRUCTURES: No acute or suspicious osseous abnormality. PERITONEAL/RETROPERITONEAL: Grossly similar degree of presacral edema. No mass, focal thickening, or pneumoperitoneum. 1. Status post loop colostomy. Regions of inflammatory stranding and poorly organized edema adjacent to the ostomy site measuring approximately 6.8 x 6.7 cm with numerous foci of associated subcutaneous gas. No evidence of rim enhancement to suggest mature abscess however findings may represent phlegmonous changes. Additionally, given prominence of subcutaneous gas, cannot rule out necrotizing infection. Recommend biochemical and clinical correlation for further evaluation. 2. Circumferential bladder wall thickening concerning for cystitis. Multiple foci of gas seen anti-dependently along theanterior bladder wall, no Carl[place] in place. Cannot rule out gas-forming infection, recommend clinicalcorrelation for recent Carl[place] placement. 3. Multiple fluid-filled loops of small bowel with mild dilation up to 3.4 cm. No discrete transition point. Findings favor small bowel ileus given recent procedure. 4. Stable circumferential thickening of the rectosigmoid bowel wall with similar degree of presacral edema and prominent mesorectal lymph nodes. Rectal stent remains in unchanged position. 5. Redemonstration of multiple hypodensities within the right hepatic lobe, which appears grossly decreased in size since CT abdomen pelvis from 04/07/2024. Given history of known metastatic cancer status post chemotherapy, findings suggestive of improved metastatic lesions. 6. Small focus of groundglasswithin the medial aspect of right lower lobe may represent focal atelectasis. Cannot rule out infectious/inflammatory process. 7. Dilated gallbladder. No evidence of acute cholecystitis. 8. Prostatomegaly. This critical result was discussed with LEI SELLER by Dr. Demetra Crawford at 05/24/2025 3:20 PM EDT and it was ascertained that the content and urgency of the report was understood at the time of direct communication. Interpreted by: Munir Rawls MD Bezel Cutter I personally reviewed the images and the resident's preliminary report and AGREE with the report as it is now presented ([id number]). Electronically Signed Jessica Champion DO General Surgery PGY-1 05/26/2025 6:05 AM * Prosper Cool MD - 05/25/2025 5:05 AM EDT Daily General Surgery Progress Note Assessment & Plan Riana Coreas is a 60M GERD, htn, adhd, PE, rectosigmoid ca with metastasis to liver/kidney/lungs on palliative chemotherapy, rectal stent placement 03/20/25 OSH presented with LBO at his stent site now s/p laparoscopic loop colostomy creation on 05/19. There was an area of erythema noted betweenostomy/gregg port site, CT with edema, underwent incision and drainage, and started on vancomycin. There was no evidence of dehiscence, parastomal hernia, or obstruction. WBC 4.4. Area of erythema is improved, continue vancomycin/ceftriaxone/Flagyl Plan - Diet: Low fiber - Holding eliquis, heparin drip to resume at 10 AM on 05/26 -Monitor erythema which is marked -Continue IV antibiotics, - DVT ppx: SQH, SCDs - Pain control - Monitor vitals / strict I&Os - Pulmonary hygiene, IS - OOB and activity as tolerated - Please contact [facility] with any questions Principal Problem: Large bowel obstruction (HCC) (POA: Yes) Active Problems: ADHD (POA: Unknown) HTN (hypertension) (POA: Unknown) History of pulmonary embolus (PE) (POA: Unknown) GERD (gastroesophageal reflux disease) (POA: Unknown) Rectal cancer metastasized to liver (HCC) (POA: Unknown) Anxiety (POA: Unknown) Severe malnutrition:Severe fat depletion(bicep/tricep fat pads) and severe muscle depletion (quadriceps and gastrocnemius) (POA: Yes) Resolved Problems: Subjective Pt had elevated temperature to 100.6F yesterday evening post I&D of fluid collection on abdomen. Pain is well-controlled denies nausea or vomiting. He is still having ostomy output brown stool. Tolerating low fiber diet. Objective Last Vitals Pulse:82,Resp:18,BP:120/70,SpO2:98 %,Weight:87.6 kg (193 lb 2 oz) Temp Last 24 hrs: Temp Min: 98.3 ??F (36.8 ??C) Max: 100.6 ??F (38.1 ??C) Last temp: 98.7 ??F (37.1 ??C) (Tympanic) Diet Additional Diets; Low Fiber/ Low Residue Patient to receive supplements: three times a day - with meals; Order: Ensure Enlive, Chocolate, 8 oz Date 05/24/25 0700 - 05/25/25 0659 05/25/25 0700 - 05/26/25 0659 Shift [id number] 24 Hour Total 9373-4493 5420-9581 5522-2083 24 Hour Total INTAKE P.O. 240 240 IV Piggyback 600 200 800 Shift Total(mL/kg) 840(9.6) 200(2.3) 1040(11.9) OUTPUT Urine(mL/kg/hr) 400(0.6) 375(0.5) 775 Stool 30 0 30 Shift Total(mL/kg) 430(4.9) 375(4.3) 805(9.2) Weight (kg) 87.6 87.6 87.6 87.6 87.6 87.6 87.6 87.6 Physical Exam Gen: alert, no acute distress Card: regular rate Pulm: normal effort of breathing with no signs of acute respiratory distress Abd: soft, nondistended, appropriately TTP, ostomy pink patent viable with gas and solid stool Skin: warm and dry VTE Time Out IMPROVE SCORE: 7 (05/17/2025 11:40 PM) Interpretation - High Risk Chemical Prophylaxis apixaban (ELIQUIS) tablet 5 mg Oral Every 12 hours scheduled [ORDER ON HOLD or LAST DOSE HELD - Please Review] heparin (porcine) 5000 unit/mL injection 5,000 Units Subcutaneous Every 8 hours scheduled Apixaban 5 mg Last dose 05/24/2025 10:14 AM Heparin (Porcine) in NaCl, Heparin Sodium (Porcine), Heparin Sodium (Porcine) 5000 Units Last dose 05/25/2025 12:03 AM Mechanical Prophylaxis SCDs are ordered - Bilateral (Knee High) Labs: White Blood Cell Count Date Value Ref Range Status 05/24/2025 5.0 4.0 - 11.0 Thou/uL Final Hemoglobin Date Value Ref Range Status 05/24/2025 9.8 (L) 13.0 - 17.7 g/dL Final Hematocrit Date Value Ref Range Status 05/24/2025 30.5 (L) 39.0 - 54.0 % Final Platelet Count Date Value Ref Range Status 05/24/2025 255 150 - 450 Thou/uL Final Lab Results Component Value Date NA 131 (L) 05/23/2025 K 4.1 05/23/2025 CL 98 05/23/2025 CO2 21 (L) 05/23/2025 BUN 9 05/23/2025 CREAT 0.48 (L) 05/23/2025 GLUC 85 05/23/2025 Lab Results Component Value Date CALCIUM 8.2 (L) 05/23/2025 MG 2.0 05/23/2025 PHOS 2.7 05/23/2025 Lab Results Component Value Date AST 21 05/17/2025 ALT 10 05/17/2025 ALKPHOS 85 05/17/2025 BILITOT 1.0 05/17/2025 BILIDIR 0.2 05/17/2025 ALBUMIN 3.1 (L) 05/22/2025 PROT 6.9 05/17/2025 No results found for: AMYLASE , LIPASE Lab Results Component Value Date PTT 31 05/20/2025 LABPROT 16.3 (H) 05/20/2025 INR 1.4 05/20/2025 Imaging Studies XR Abdomen 1 view-Portable Result Date: 05/18/2025 EXAMINATION: XR ABDOMEN KUB CLINICAL INDICATION: S/p NGT insertion COMPARISON: CT abdomen and pelvis 05/17/2025 TECHNIQUE: AP view of the abdomen. FINDINGS: Enteric tube, with the tip and sidehole over the expected location of GE junction/gastric fundus. Multiple air distended loops of small and large bowel are identified, with small bowel, measuring up to 5.2 cm. Visualized lung bases are clear.No acute osseous abnormality. 1. Enteric tube, with the tip and sidehole over the expected location of GE junction/gastric fundus. 2. Multiple air distended loops of small and large bowel, with small bowel measuring up to 5.2 cm.Findings may represent ileus or partial small bowel obstruction. Electronically Signed Prosper Cool MD General Surgery, PGY-2 05/25/2025 5:05 AM Cosigned by Radha Gay MD at 05/25/2025 2:15 PM EDT Associated attestation - Radha Gay MD - 05/25/2025 2:15 PM EDT Surgery Attending Attestation I have personally interviewed and examined the patient and reviewed the note below. I agree with the history, exam, assessment and plan as detailed in the note with the following additions/exceptions/observations: Patient underwent CT scan yesterday for area of erythema and induration on the left of his abdomen.There was a phlegmonous collection with some air but no definitive abscess. I did perform an incision and drainage at bedside and there was no purulent fluid expressed. The subcutaneous tissues appeared yellow and healthy. Wound culture was taken. Hemostasis was achieved. He was started on broad-spectrum antibiotics. Today he has similar erythema and induration. I do not see any purulent output from the site of his incision and drainage. Tmax was 100.6 and his vitals have otherwise remained within normal limits. Eliquis continues to be held and will start heparin drip tomorrow morning. His white blood cell count is 4.4. Will continue to monitor on broad-spectrum antibiotics. He may require repeat CT scan to see if this forms into a more organized fluid collection that is amenable to further incision and drainage. Radha Gay MD 2:13 PM * Zane Pride, PharmD - 05/24/2025 4:43 PM EDT Pharmacokinetic Consult - Vancomycin Dosing Riana Coreas is a 60 y.o. male who has been consulted for vancomycin dosing, goal AUC24 of 400-600 for cellulitis. Height: Last ht 05/18/25 1.88 m (6' 2 ) Weight: Last wt 05/18/25 87.6 kg (193 lb 2 oz) IBW: [place] body weight: 82.2 kg (181 lb 3.5 oz) Adjusted ideal body weight: 84.4 kg (185 lb 15.7 oz) Labs: Creatinine Date/Time Value Ref Range Status 05/23/2025 05:15 AM 0.48 (L) 0.50 - 1.30 mg/dL Final 05/22/2025 03:35 PM 0.41 (L) 0.50 - 1.30 mg/dL Final 05/22/2025 07:00 AM 0.38 (L) 0.50 - 1.30 mg/dL Final Blood Urea Nitrogen (BUN) Date/Time Value Ref Range Status 05/23/2025 05:15 AM 9 8 - 21 mg/dL Final 05/22/2025 03:35 PM 8 8 - 21 mg/dL Final 05/22/2025 07:00 AM 6 (L) 8 - 21 mg/dL Final No results found for: VANCOTR , VANCTR , VANCORAND , VANRAN , VANCOPK , VANCPK Estimated Creatinine Clearance: 187.9 mL/min (A) (by C-G formula based on SCr of 0.48 mg/dL (L)). Assessment: Analysis using [employer] gives the following predicted pharmacokinetic parameters: CL: 6.86 L/hr V: 59.1 L T 1/2: 7.19 hours At this time, give a loading dose of 2000 mg. This will be followed by a regimen of 1750 mg IV every 12 hours, which is predicted to result in an AUC24 of 507 (correlated steady-state trough of 11.6 mcg/mL). The pharmacy team will plan to obtain a level within 48 hours. Pharmacy will continue to follow the patient's renal function, culture results, and clinical progress daily. Loading dose: 2000 mg at 17:00 05/24/2025. Regimen: 1750 mg IV every 12 hours. Start time: 05:00 on 05/25/2025 Exposure target: AUC24 (range) 400-600 mg/L.hr AUC24,ss: 507 mg/L.hr Probability of AUC24 > 400: 73 % Ctrough,ss: 11.6 mg/L Probability of Ctrough,ss > 20: 16 % Probability of nephrotoxicity (Lodise HAKAN 2009): 7 % Zane Pride PharmD A Document for: [facility] Title: Vancomycin: Pharmacy to Dose_[facility] Purpose: To provide instruction on pharmacy to dose vancomycin service Scope: Prescribers and pharmacists Protocol: Prescriber Responsibilities: Prescribers may order ???vancomycin dosing by pharmacy??? to authorize pharmacy to manage vancomycin therapy. Prescriber must document the indication for vancomycin. Pharmacist Responsibilities: For orders entered as ???vancomycin dosing by pharmacy???, the pharmacist will dose, monitor, and modify vancomycin therapy. The pharmacist will check the patient???s record for doses of vancomycin administered prior to the implementation of the protocol, will determine the time of administration of the first protocol dose, and will, if necessary, call the nurse to schedule doses accordingly. Pharmacists will demonstrate competency on a regular basis. All vancomycin orders and related labs should be ordered per protocol, no cosign required. Protocol Exclusions: Adult patients weighing less than 20 kg Trough-based monitoring in conjunction with the provider and an infectious diseases clinical pharmacist should be utilized. Pediatric patients (less than 16 years of age) An infectious diseases clinical pharmacist should be contacted for assistance with dosing. patients (Less than 28 days of age) Contact [facility] for assistance. AUC Therapeutic Drug Monitoring: An AUC/AIDE (area under the curve/minimum inhibitory concentration) ratio of greater than or equal to 400 is considered the optimal pharmacokinetic/pharmacodynamic efficacy target for vancomycin. The literature supporting this target is mainly derived from studies of patients with MRSA bloodstream infections. An AIDE of less than or equal to 1 mg/L should be assumed for empiric dosing. Alternative agents arerecommended when the AIDE is 2 mg/L or greater. Data suggests that an AUC less than 400 potentiates the emergence of resistance. A target AUC of 400 to 600 is recommended to achieve clinical efficacy while improving patient safety. For some infections, such as CORK TILE FLOOR LAYER infections, a higher range of 500-600 may be considered if possible. Trough-based monitoring is no longer recommended for most patients based on efficacy and nephrotoxicity data. Bayesian dosing software, like [employer]???,utilizes a population pharmacokinetic model coupled with an individual patient???s observed drug concentrations to calculate the patient???s optimal vancomycin dosing regimen. [employer]??? should be utilized to dose all vancomycin regimens unless otherwise noted in the protocol. Vancomycin Dosing Recommendations Dosing: Available Doses: 500 mg, 750 mg, 1000 mg, 1250 mg, 1500 mg, 1750 mg, 2000 mg, 2500 mg Doses should be rounded to the nearest 250 mg Maximum Doses: Maximum loading dose: 2500 mg Maximum maintenance dose: 2000 mg Minimum Dose: 500 mg Dosing Frequencies: Every 6, 8, 12, 18, 24, 36, or 48 hours For ease of administration, consider preferentially using every 8, 12, or 24- hour dosing regimens when possible and if clinically appropriate based on pharmacokinetic estimates. All doses should be based on actual body weight Vancomycin Infusion Times: Doses of 1.5 g or less will be infused over 1.5 hours. Doses of 1.75 to 2 g will be infused over 2 hours Doses of 2.5 g will be infused over 2.5 hours Loading Doses: Loading doses should be administered to all patients who are not currently on vancomycin. Loading doses are solely dependent on the weight of the patient. Renal function should not be used as a deciding factor to order or the amount of the loading dose. (See Table 1) Loading doses can be entered in [employer]??? within the loading dose feature to check that simulated PK exposure predictions fall within the target range. The loading dose feature in [employer]??? will only appear when no doses have been documented in the patient???s chart. Table 1 Loading doses for patients based on actual body weight: Weight: Vancomycin Dose: 20-29 kg 500 mg 30-39 kg 750 mg 40-49 kg 1000 mg 50-59 kg 1250 mg 60-69 kg 1500 mg 70-79 kg 1750 mg 80-99 kg 2000 mg 100 kg or more 2500 mg Maintenance Doses: [employer]??? will be utilized to determine maintenance regimens in all patients with stable renal function using the DoseAssist function. [employer]??? recommends doses based on the patient???s age, weight, renal function, predicted trough and AUC, and richly sampled vancomycin data as the Bayesian prior. [employer]??? will calculate the predicated 24-hour AUC at steady state (AUC24, ss), the trough concentration at steady state (Ctrough, ss), the probability of an AUC24, ss greater than or equal to 400 (PAUC), the probability of Ctrough,ss greater than or equal to 20 mg/L (Pconc), and the probability of a nephrotoxic event (Tox.). Pharmacists should aim to keep the Pconc and Tox. column values as close to 0% as possible, while maximizing PAUC closest to 100%. Maintenance Doses & Unstable Renal Function: When dosing patients with acute kidney injury or unstable renal function, [employer]??? should stillbe utilized to determine the appropriate regimen. In the setting of significant renal impairment, an orange warning banner will populate in [employer]??? indicating when the custom dose feature should be utilized. The custom dose feature in [employer]??? must be utilized as the DoseAssist feature will no longer populate recommendations in these scenarios. The custom dose feature can be used to evaluate the patient???s predicted exposure metrics based onthe various regimens entered. In patients with fluctuating renal function, a [id number] strategy can be utilized. Target AUC Concentrations: A target AUC of 400 to 600 is recommended for all patients except those with CORK TILE FLOOR LAYER infections. For CORK TILE FLOOR LAYER infections, a higher range of 500-600 may be considered if possible. Therapeutic Drug Monitoring: Initial vancomycin concentration levels should be drawn early in therapy, within the first 24-48 hours of therapy, generally after doses 2-4. It is no longer necessary to wait until steady state to collect levels. Earlier level collection allows for early target attainment and optimal efficacy. Levels should routinely be ordered to be collected with AM labs to decrease the number of lab sticks required. Levels may be interpreted from any time point between dose administrations (except during the infusion). All levels should be ordered as random levels. Vancomycin levels should be ordered within approximately 24 hours of due time. Levels should not beordered several days in advance. Doses should not be routinely held by nursing awaiting the return of a vancomycin level that is in process. If there is concern for supratherapeutic levels (i.e., in the setting of acute kidney injury) the vancomycin regimen should be discontinued pending evaluation of the level and doses re-ordered accordingly after the level results. Repeat Levels: Throughout the treatment course, repeat levels may be considered to be obtained within 24-48 hours: After a dosing regimen change During changes in renal function (SCr change by greater than or equal to 0.3 mg/dL OR urine output less than 0.5 mL/kg/hr over 6 hours) Hemodynamic instability If patients remain clinically stable with a documented AUC concentration in range, repeat levels only need to be rechecked every 5-7 days. Vancomycin Received at an Outside Hospital: Vancomycin doses that were received at an outside hospital or via home infusion can be manually entered into InsightRx??? along with any levels that were collected prior to admission to [facility]. This will allow InsightRx??? to recognize that the patient is likely already at steady state and the dosing r ecommendations in the DoseAssist feature will reflect this. If the doses administered or time since the last dose administered is unknown or there is a concernfor supratherapeutic levels, a random stat level should be collected prior to dosing vancomycin to ensure level is not supratherapeutic. Laboratory Monitoring: Pharmacists may order serum creatinine, BUN, and vancomycin levels as needed per protocol. For new start vancomycin orders or for patients receiving vancomycin for less than 48 hours with anorder indication of pneumonia or sepsis that is secondary to suspected pneumonia, pharmacists may order a ???MRSA PCR Screen, Qualitative?? per protocol, no cosign required. The MRSA PCR nasal swab has a high negative predictive value for MRSA pneumonia. If the PCR resultsas ???not detected?? , the provider team should be contacted to discuss the need for vancomycin if no other clinical indications for vancomycin are present. Administration of doses should not be delayed pending a PCR result. A positive MRSA PCR nasal swab has a low positive predictive value and does not independently indicate the presence of MRSA pneumonia Vancomycin Dosing in Dialysis Patients requiring any form of dialysis will be dosed outside of the InsightRx??? software. All patients should receive weight-based loading doses as recommended in Table 1. Trough-based monitoring should be utilized for all patients requiring hemodialysis. Intermittent hemodialysis: Pre-hemodialysis vancomycin levels are preferred and should be drawn with scheduled morning labs when possible. Each dialysis session is expected to decrease the pre-dialysis level by 30-50%. Goal pre-hemodialysis level: 15-20 mcg/mL for all indications Maintaining pre-hemodialysis concentrations between 15 and 20 mcg/mL is likely to achieve an AUC of400 to 600 in the previous 24 hours. Random levels should be drawn within the first 72 hours of therapy and after the loading dose has been administered, prior to the next dialysis session. Generally, the weight-based maintenance doses from Table 2 in the protocol can be given after a hemodialysis session. In some instances, patients may have very low levels after receipt of a vancomycin loading dose. The calculation below can be utilized to help obtain a therapeutic level after a dialysis session. ? Concentration = Dose/VD (VD= 0.7 * weight) The supplemental dose is not intended to be a standard maintenance dose. Once a therapeutic regimen has been attained, levels should be monitored every 5-7 days in stable patients. Table 2 Hemodialysis Initial Maintenance Doses Weight Dose 20 - 59 kg 500 mg with each HD session 60 - 89 kg 750 mg with each HD session 90 kg or greater 1000 mg with each HD session Peritoneal Dialysis: For patients undergoing peritoneal dialysis and receiving intravenous vancomycin therapy, a level should be checked 24 hours after the initial dose. Subsequent doses should be administered based on the level. Frequencies of 48-72 hours may be expected. Patients receiving vancomycin intraperitoneally are excluded from this protocol. An infectious diseases clinical pharmacist should be contacted for assistance with dosing. Continuous Renal Replacement Therapy (CRRT): Patients receiving systemic vancomycin and continuous renal replacement therapy should be re-dosed with vancomycin when serum levels are or are expected to be less than 20 mcg/mL. The pharmacist should order a vancomycin random level approximately 12 hours after the initial dose. The pharmacist will re-dose accordingly based on level and monitor daily for CRRT interruptions or modifications. Monitoring Pharmacists will review patients daily (even if there is no pending level for that day). Daily reviews should include monitoring renal function, concomitant nephrotoxic agents (Table 3), microbiology, doses administered, pharmacy & relevant provider notes, and pending levels. In patients receiving dialysis or continuous renal replacement therapy, the pharmacist will review dialysis schedule & nephrology notes daily. Table 3 Potentially Nephrotoxic Agents: (list is not all-inclusive) Acyclovir Vamo Aminoglycosides Loop Diuretics (usually higher doses) Amphotericin B and derivatives Methotrexate Angiotensin Inhibitors and Blockers NSAIDS (including RIDER-1 and RIDER-2 Inhibitors Calcineurin Inhibitors (cyclosporine, tacrolimus, sirolimus) Pentamidine Cidofovir Polymyxins (colistimethate and polymixin B) Contrast Media Piperacillin/tazobactam [place] Documentation Pharmacists should document in [place] their plan for dosing and monitoring vancomycin per pharmacy protocol. The summary note from [facility]??? should be copied into the pharmacy protocol i-Vent and posted inthe chart as a note for all patients being dosed with Insight[facility]???. The Epic i-Vent template shouldbe utilized for all trough-based monitoring. At initiation of therapy With each level With each regimen change Patients being discharged on long-term intravenous vancomycin Pharmacists will ensure adequate handoff via verbal communication with external pharmacies/providers for patients who are being discharged on long-term IV vancomycin. The process for long-term vancomycin handoffs will be as follows: When a provider enters a discharge prescription for IV vancomycin, a RxDischarge In Basket message will fire. The pharmacist will review the discharge plans, including anticipated date of discharge and who will be taking over outpatient antibiotic therapy. Pharmacists will also review inpatient dosing regimen, recent labs, and anticipated plan for antibiotic therapy. Pharmacist will call long-term care pharmacy, home infusion service, etc. to provide handoff of thepatient???s vancomycin regimen, recent drug levels (provide AUC and corresponding estimated trough level listed in InsightRx???), and any other pertinent information to safely and effectively hand off therapy. From the Rx Discharge message, pharmacists will use the New i-Vent button to document handoff as follows: i-Vent type: ???Transitions of Care?? i-Vent subtype: ???Discharge Handoff?? Pharmacists will use SmartText ???.dischargevancomycin?? to document the handoff that occurred. Pharmacists will copy the i-Vent to a note so that it is visible in the patient???s chart. Three attempts should be made to provide the discharge handoff Each attempt you make should be documented in an ivent using the SmartText ???.dischargevancounsuccessful?? and copied into the chart as a note After three unsuccessful attempts, update the ivent using the ivent template and annie the BPA in the In Basket complete Downtime Procedures Should an Epic downtime occur, the following procedures should be followed. If internet is still accessible during the downtime, the InsightRx??? web-based platform can still be utilized ([email or web address]). All general concepts or restrictions in this protocol should still be followed during downtime Loading doses should be administered to all patients as recommended in Table 1 Table 4 should be referenced for the recommended initial maintenance dose and frequency based on the patient weight and creatinine clearance if the web-based platform is not available. This should beused in downtimes only when the InsightRx??? web-based platform is not available. In the setting of Epic and internet downtime, trough-based monitoring should be utilized Trough Goals: 15-20 mcg/mL for severe infections such as bacteremia, endocarditis, pneumonia, necrotizing fasciitis, or meningitis 10-20 mcg/mL for cellulitis, urinary tract infections Trough levels should be collected 1 hour prior to the 4th or 5th dose or sooner based on clinical judgement. Patients with impaired or unstable renal function should be dosed by level. Once the downtime has resolved, patients should be converted to AUC monitoring and doses administered during the downtime can be manually added to Insight[facility]???. Table 4 Creatinine Clearance (CrCl) Recommended Dose & Interval Greater than or equal to 100 mL/min & age less than 50 years 10-15 mg/kg IV Q8h Greater than or equal to 100 mL/min & age greater than 50 years 15-20 mg/kg IV Q12h 70-99 mL/min 15-20 mg/kg IV Q12h 50-69 mL/min 10-15 mg/kg IV Q12h 30-49 mL/min 15-20 mg/kg IV Q24h Less than 30 mL/min (not on hemodialysis) OR Unstable renal function 15-20 mg/kg IV once Obtain random level with AM labs or at 12- or 24-hour interval as applicable Re-dose at 10-15 mg/kg when level is estimated to be less than 20 mcg/mL * Zane Pride PharmD - 05/24/2025 4:31 PM EDT Images from the original note were not included. Pharmacy - Antibiotic Renal Adjustment Note Labs: Renal Creatinine (72h ago through now) Date/Time Serum Creatinine Range CrCl 05/23/25 0515 0.48 mg/dL 0.50 - 1.30 mg/dL 187.9 mL/min 05/22/25 1535 0.41 mg/dL 0.50 - 1.30 mg/dL 220 mL/min 05/22/25 0700 0.38 mg/dL 0.50 - 1.30 mg/dL 237.3 mL/min 05/22/25 0352 0.35 mg/dL 0.50 - 1.30 mg/dL 257.7 mL/min 05/21/25 1645 0.39 mg/dL 0.50 - 1.30 mg/dL 231.3 mL/min Blood Urea Nitrogen (BUN) (Last 10 results in the past 365 days) BUN 05/23/25 0515 9 05/22/25 1535 8 05/22/25 0700 6 05/22/25 0352 5 05/21/25 1645 7 05/21/25 0530 5 05/20/25 0610 6 05/19/25 1621 9 05/19/25 0537 11 05/17/25 2245 12 Estimated Creatinine Clearance: 187.9 mL/min (A) (by C-G formula based on SCr of 0.48 mg/dL (L)). Last Height/Weight Flowsheet Row Most Recent Value Height 1.88 m (6' 2 ) filed at: 05/18/2025 0700 Weight 87.6 kg (193 lb 2 oz) filed at: 05/18/2025 0700 [place] body weight: 82.2 kg (181 lb 3.5 oz) Adjusted ideal body weight: 84.4 kg (185 lb 15.7 oz) Riana Coreas is a 60 y.o. male that is receiving antimicrobial therapy for surgical site infection. Cefepime was changed from 1 gm q24h to 2 gm q8h per the pharmacist automatic renal adjustment protocol. Pharmacy will continue to follow the patient's renal function, culture results and clinical progress daily. Zane Pride A Document for: [facility] Title: Pharmacist Automatic Antimicrobial Renal Dose Adjustment_[facility] Purpose: To define practices for pharmacist automatic antimicrobial renal dose adjustment Scope: Pharmacists, providers Policy Statement(s): Antibiotics included in the Pharmacist Automatic Antimicrobial Renal Dose Adjustment document will automatically be dose-adjusted for renal function and appropriate dosing. The pharmacist will automatically dose-adjust antibiotic frequencies, based on the patient???s estimated creatinine clearance If the indication specified at court orderly does not meet the dosing recommendations within the protocol or is not included in the protocol, providers will be contacted for order clarification. Indication-specific doses should not be adjusted per protocol as some indications have differing doses. Dosing intervals should be automatically adjusted based on creatinine clearance ranges. (For example: pharmacists may change daptomycin from q24h dosing to q48h dosing for a CrCl of 20 mL/min, but NOT from 6 mg/kg dose to 8 mg/kg dose.) If an antimicrobial requires an adjustment in dose at a specific creatinine clearance range, pharmacists may automatically adjust (For example: an order originally placed for cefepime 2 g can be automatically reduced to 1 g every 24 hours for a CrCl less than 10 mL/min) Indication-specific dosing recommendations are suggestions, and patient-specific factors may require alternative dosing recommendations that are not highlighted in the table below. Due to the vast number of possible antimicrobial indications for antimicrobials included, some indications may not be listed. Providers should be contacted if questions arise regarding the appropriateness of dosing regimens. Patients requiring extracorporeal membrane circulation (ECMO) are excluded from this policy, and required dose adjustments should be discussed with the provider. This document contains antimicrobial dosing regimens that are safe, effective, and evidence based. However, there are some instances where multiple dosing regimens are safe, effective, and evidence based. Please consider alternative dosing regimens when an infectious diseases provider is placing anorder for an antimicrobial. Please contact [facility] if you have any questions. Procedure: Upon receipt or review of an order that contains a dosing frequency that does not correspond with apatient???s creatinine clearance, the pharmacist will automatically adjust the antibiotic to the frequency that is defined by the dosing parameters in the protocol. Dosage adjustments will be made for antibiotics that do not have dose ranges. Antibiotics that havedose ranges will not be automatically adjusted and the provider will be contacted. Dosage adjustments for renal dysfunction will be processed and documented in [facility]. All orders entered in [facility] should be entered as ???per protocol: no cosign required?? . Antimicrobial renal dose adjustments should be documented as ivents in Epic under ???Antimicrobial stewardship?? with the subtype ???renal dose adjustment?? . Ivents must be copied into the chart as a progress note. Definitions: Ivent: an ivent is a means of documentation in Epic viewable only to pharmacist. Appendix A: Adult Antimicrobial Dosing Guide [facility] Adult Antimicrobial Dosing Guide Antimicrobial Agent Creatinine Clearance (mL/min) Indication-specific dosing Greater than 50 30-50 10-30 Less than 10 or HD (dose after dialysis) CRRT Acyclovir (IV) Use AdjBW if weight greater than 120% of IBW HSV encephalitis/ VZV/ zoster ophthalmicus 10 mg/kg q8h 10 mg/kg q12h 10 mg/kg q24h 5 mg/kg q24h 10 mg/kg q12h HSV genital or mucocutaneous 5 mg/kg q8h 5 mg/kg q12h 5 mg/kg q24h 2.5 mg/kg q24h 5 mg/kg q12h Acyclovir (PO) VZV 800 mg 5 times daily 800 mg q8h 800 mg q12h HSV genital or mucocutaneous 400 mg q8h 200 mg q8h 200 mg q12h HSV prophylaxis 400 mg q12h 200 mg q12h Amphotericin B Lipid Complex (Abelcet??)(IV) Dose using IBW. Use actual weight if less than IBW 5 mg/kg q24h Liposomal Amphotericin B (Ambisome) (IV) Use AdjBW if weight greater than 120% of IBW Cryptococcal meningitis 3-4 mg/kg q24h Mucormycosis 5-10 mg/kg q24h Other systemic infection 3-5 mg/kg q24h Amoxicillin (PO) All others 500 mg q8h 500 mg q12h 500 mg q24h 500 mg q12h CAP 1g q8h 1g q12h 500 mg q12h 500 mg q12h Amoxicillin/ clavulanate (PO) 875/125 mg q12h 500/125 mg q12h 500/125 mg q24h 500/125 mg q24h Ampicillin (IV) Endocarditis/ CORK TILE FLOOR LAYER/ bacteremia/ osteomyelitis/ PJI/ severe^ 2 g q4h 2 g q6h 2 g q8h 2 g q12h 2 g q8h All others 2 g q6h 2 g q8h 2 g q12h 2 g q24h 2 g q8h Ampicillin/ Sulbactam (IV) All others 3 g q6h 3 g q12h 3 g q24h 3 g q8h Cystitis 1.5 g q6h 1.5 g q8h 1.5 g q12h 1.5 g q24h 1.5 g q8h MDR+ Acinetobacter baumannii 3g q4h 3g q6h 3g q8h 3g q12h 3g q6h Azithromycin (IV/PO) 500 mg q24h Aztreonam (IV) Pseudomonas/ severe^ 2 g q8h 2 g q12h 2 g q24h 1 g q24h 2 g q8h All others 1 g q8h 1g q12h 1 g q24h 1 g q24h 1 g q8h Cefazolin (IV) All others 2 g q8h 2 g q12h CrCl less than 10 HD 2 g q8h 2 g q24h 1 g q24h UTI/ cellulitis/ uncomplicated SSTIs 1 g q8h 1 g q12h 1 g q24h 1 g q8h Cefepime (IV) All others/ SDD isolates* 2 g q8h 2 g q12h 2 g q24h 1 g q24h 2 g q8h UTI/ cellulitis/ uncomplicated SSTIs 1 g q8h 1 g q12h 1 g q24h 1g q24h 1 g q8h Cefiderocol (IV) CrCl greater than or equal to 120 CrCl 60-120 CrCl 30-60 CrCl 15-30 CrCl less than 15 or HD CRRT 2 g q6h 2 g q8h 1.5 g q8h 1 g q8h 750 mg q12h Dosing based on effluent rate; see package insert [facility] Adult Antimicrobial Dosing Guide Antimicrobial Agent Creatinine Clearance (mL/min) Indication-specific dosing Greater than 50 30-50 10-30 Less than 10 or HD (dose after dialysis) CRRT Cefpodoxime (PO) All others 200 mg q12h 200 mg q24h UTI 100 mg q12h 100 mg q24h SSTI or bacteremia 400 mg q12h 400 mg q24h 200 mg q24h Ceftaroline (IV) Bacteremia/ endocarditis/ severe^ 600 mg q8h 400 mg q8h 300 mg q8h 200 mg q8h 600 mg q8h All others 600 mg q12h 400 mg q12h 300 mg q12h 200 mg q12h 600 mg q12h Ceftazidime (IV) CORK TILE FLOOR LAYER/ pneumonia/ severe^ 2 g q8h 2 g q12h 2 g q24h 1 g q24h 2 g q8h All others 1 g q8h 1 g q12h 1g q24h 1g q24h 1 g q8h Ceftazidime/ avibactam (IV) 2.5 g q8h 1.25 g q8h CrCl 15-29 CrCl 5-14 CrCl less than 5 HD 1.25 g q8h 0.94 g q12h 0.94 g q24h 0.94 g q48h 0.94 g q24h Ceftolozane/ tazobactam (IV) Pneumonia/ bacteremia/ severe^ 3 g q8h 1.5 g q8h CrCl 15-29 CrCl less than 15 HD 1.5 g q8h 750 mg q8h No data 2.25 g x1, then 450 mg q8h All others 1.5 g q8h 750 mg q8h CrCl 15-29 CrCl less than 15 HD 1.5 g q8h 375 mg q8h No data 750 mg x1, then 150 mg q8h Ceftriaxone (IV) CORK TILE FLOOR LAYER or Enterococcal IE synergy 2 g q12h Osteomyelitis/ septic joint/ Strep. endocarditis/ Lyme 2 g q24h All others 1 g q24h Cefuroxime (PO) All others 500 mg q12h 500 mg q24h 500 mg q48h UTI 250 mg q12h 250 mg q24h 250 mg q48h Cephalexin (PO) All others 500 mg q6h 500 mg q8h 500 mg q12h 500 mg q12h UTI 500 mg q12h 500 mg q24h 500 mg q24h Ciprofloxacin (IV) Pneumonia/ severe^ 400 mg q8h 400 mg q12h 400 mg q24h 400 mg q8h All others 400 mg q12h 400 mg q24h 400 mg q12h Ciprofloxacin (PO) Pneumonia/ severe^ 750 mg q12h 750 mg q24h 750 mg q12h All others 500 mg q12h 500 mg q24h 500 mg q12h Clindamycin (IV) Necrotizing fasciitis/ PJP/ toxoplasmosis 900 mg q8h All others 600 mg q8h Clindamycin (PO) 300-450 mg q6-8h Dalbavancin (IV) Acute bacterial SSSI (one-time dose in ED only) 1,500 mg x1 1,125 mg x1 1,500 mg x1 Daptomycin (IV) Use AdjBW if weight greater than 120% of IBW VRE infection bacteremia/ endocarditis/ SDD* 10-12 mg/kg q24h 10-12 mg/kg q48h MRSA bacteremia/ endocarditis 8-10 mg/kg q24h 8-10 mg/kg q48h All others 6 mg/kg q24h 6 mg/kg q48h Doxycycline (IV/PO) 100 mg q12h LT[facility] Adult Antimicrobial Dosing Guide Antimicrobial Agent Creatinine Clearance (mL/min) Indication-specific dosing Greater than 50 30-50 10-30 Less than 10 or HD (dose after dialysis) CRRT Fluconazole (IV/PO) Invasive candidiasis 800 mg (12 mg/kg) x1, then 400 mg (6 mg/kg) q24h 800 mg (12 mg/kg) x1, then 200 mg (3mg/kg) q24h 800 mg (12 mg/kg) x1, then 400 mg (6 mg/kg) q24h Esophageal candidiasis 400 mg q24h 200 mg q24h Febrile neutropenia prophylaxis 400 mg q24h 200 mg q24h Oropharyngeal candidiasis 200 mg q24h 100 mg q24h Flucytosine (PO) Use IBW if weight greater than 120% of IBW CrCl greater than 40 CrCl 20-40 CrCl 10-20 CrCl less than 10 or HD 25 mg/kg [id number] 25 mg/kg q6h 25 mg/kg q12h 25 mg/kg q24h 25 mg/kg q48h Fosfomycin (PO) Complicated UTI 3 g q48h x3 doses 3 g q72h x2 doses Uncomplicated UTI 3 g x1 dose Ganciclovir (IV) Use AdjBW if weight greater than 120% of IBW CMV treatment CrCl greater than 70 CrCl 50-70 CrCl 25-50 CrCl 10-25 CrCl less than 10 or HD 5 mg/kg q12h 2.5 mg/kg q12h 2.5 mg/kg q24h 1.25 mg/kg q24h 1.25 mg/kg three times weekly CMV prophylaxis 5 mg/kg q24h 2.5 mg/kg q24h 1.25 mg/kg q24h 0.625 mg/kg q24h 0.625 mg/kg three times weekly Isavuconazonium sulfate (IV/PO) Invasive aspergillosis or mucormycosis 372 mg q8h x 6 doses, then 372 mg q24h (initiate 12-24h after last loading dose) Letermovir (IV) CMV prophylaxis, allogeneic HSCT 480 mg q24h No dose adjustment with CrCl > 10 mL/min. Accumulation of IV vehicle may occur in CrCl < 50 mL/min, closely monitor SCr Letermovir (PO) CMV prophylaxis, allogeneic HSCT 480 mg q24h CrCl less than 10 Not defined Levofloxacin (IV/PO) Pneumonia/ severe^ 750 mg q24h CrCl 20-49 CrCl less than 20 or HD 750 mg q24h 750 mg q48h 500 mg q48h All others 500 mg q24h CrCl 20-49 CrCl less than 20 or HD 500 mg q24h 500 mg q48h 250 mg q48h Linezolid (IV/PO) 600 mg q12h Maribavir (PO) CMV treatment, refractory 400 mg q12h Meropenem (IV) CORK TILE FLOOR LAYER/VAP 2 g q8h 1 g q8h CrCl less than 30 HD 2 g q8h 1 g q12h 500 mg q24h All others 500 mg q6h 500 mg q8h CrCl less than 30 HD 500 mg q6h 500 mg q12h 500 mg q24h Metronidazole (IV/PO) Brain abscess 500 mg q6h Clostridioides difficile infection 500 mg q8h All others 500 mg q12h Micafungin (IV) Esophageal candidiasis/ intravascular infection 150 mg q24h All others, including prophylaxis 100 mg q24h Minocycline (PO) All others 100 mg q12h Stenotrophomonas maltophilia or MDR+ A. baumannii 200 mg q12h Nafcillin (IV) 2 g q4h [facility] Adult Antimicrobial Dosing Guide Antimicrobial Agent Creatinine Clearance (mL/min) Indication-specific dosing Greater than 50 30-50 10-30 Less than 10 or HD (dose after dialysis) CRRT Nitrofurantoin (PO) Uncomplicated cystitis CrCl greater than 30 CrCl less than 30 100 mg q12h Avoid use Oseltamivir (PO) Influenza treatment 75 mg q12h 75 mg q24h CrCl Less than 10 HD 75 mg x1 then 30 mg q24h 30 mg q24h 75 mg x1 then 30 mg post HD Influenza prophylaxis 75 mg q24h 30 mg q24h 30 mg q48h CrCl Less than 10 HD 30 mg q24h 30 mg q48h 30 mg x1, then 30 mg post HD Penicillin G (IV) Neurosyphilis/ meningitis/ necrotizing fasciitis/ endocarditis 4 mil units q4h 3 mil units q4h 2 mil units q4h 4 mil units x1, then 3 mil units q4h Peramivir (IV) Influenza treatment 600 mg once 200 mg once 100 mg once 100 mg once Piperacillin/ tazobactam (IV) CrCl > 40 CrCl 20-40 CrCl < 20 or HD 4.5 g q6h 4.5 g q6h 4.5 g q8h 4.5 g q12h Posaconazole (PO) 300 mg q12h x 2 doses then 300 mg q24h Posaconazole (IV) 300 mg q12h x 2 doses then 300 mg q24h Oral formulation preferred when CrCl < 50 mL/min Trimethoprim/ sulfamethoxazole (IV/PO) Dose calculated based on TMP; use AdjBW if weight greater than 120% of IBW UTI & pyelonephritis 1 DS tab q12h 1 DS tab q24h PJP or Nocardia 15-20 mg/kg/day divided in 3-4 doses 7.5-10mg/kg/day divided in 1-2 doses Toxoplasma encephalitis 10 mg/kg/day divided in 2 doses 5 mg/kg/day divided in 2 doses S. maltophilia or Systemic infection 8-12 mg/kg/day divided in 2-3 doses 4-6 mg/kg/day divided in 1-2 doses Valacyclovir (PO) Herpes zoster 1000 mg q8h 1000 mg q12h 1000 mg q24h 500 mg q24h Cold sores (x1 day) 2 g q12h 1 g q12h 500 mg q12h 500 mg x 1 Genital herpes treatment: Initial episode (x10 days) 1000 mg q12h 1000 mg q24h 500 mg q24h Genital herpes treatment: recurrent episodes (x3 days) 500 mg q12h 500 mg q24h 500 mg q24h Genital herpes prophylaxis: immunocompetent 500 - 1000 mg q24h 500 - 1000 mg q24h 500 mg q24h 500 mg q24h Genital herpes prophylaxis: HIV-infected/ immunocompromised 500 mg q12h 500 mg q12h 500 mg q24h 500 mg q24h Valganciclovir (PO) CMV Treatment CrCl greater than or equal to 60 CrCl 40-60 CrCl 25-40 CrCl less than 25 or HD 450 mg q12h 900 mg q12h 450 mg q12h 450 mg q24h 450 mg q48h CMV Prophylaxis 900 mg q24h 450 mg q24h 450 mg q48h 450 mg twice weekly 450 mg q24h LTAC, located within [facility] Antimicrobial Dosing Guide Antimicrobial Agent Creatinine Clearance (mL/min) Indication-specific dosing Greater than 50 30-50 10-30 Less than 10 or HD (dose after dialysis) CRRT Vancomycin (PO) Clostridioides difficile infection (nonfulminant) 125 mg q6h Clostridioides difficile infection (fulminant) 500 mg q6h Clostridioides difficile Prophylaxis 125 mg q24h Voriconazole (IV) Use AdjBW if weight greater than 120% of IBW 6 mg/kg q12h x 1 day, then 4 mg/kg q12h Oral formulation preferred when CrCl < 50 mL/ min Voriconazole (PO) Use AdjBW if weight greater than 120% of IBW 6 mg/kg q12h x 1 day, then 4 mg/kg q12h *SDD: Susceptible dose dependent (isolates that are susceptible dose dependent will be reported as such in Epic) +MDR: Multi-drug resistant, which includes carbapenem-resistant Acinetobacter baumannii (CRAB) ^Severe: Infections categorized as severe may include but are not limited to pneumonia, endocarditis, bacteremia, necrotizing fasciitis, meningitis, osteomyelitis. Categorization of infection type should be discussed with provider. * Radha Gay MD - 05/24/2025 11:05 AM EDT Progress Note Principal Problem: Large bowel obstruction (HCC) (POA: Yes) Active Problems: ADHD (POA: Unknown) HTN (hypertension) (POA: Unknown) History of pulmonary embolus (PE) (POA: Unknown) GERD (gastroesophageal reflux disease) (POA: Unknown) Rectal cancer metastasized to liver (HCC) (POA: Unknown) Anxiety (POA: Unknown) Severe malnutrition:Severe fat depletion(bicep/tricep fat pads) and severe muscle depletion (quadriceps and gastrocnemius) (POA: Yes) Resolved Problems: Assessment & Plan Assessment 60-year-old male with history of metastatic rectal cancer on chemotherapy (prior FOLFOX and recently Avastin last dose 05/15/2025) who had colonic stent placed at an outside hospital and presented with large bowel obstruction now postop day 5 status post laparoscopic diverting loop colostomy creation. Plan - Noted to have erythema and firmness between the colostomy and midline Gregg port today, will obtain CBC and stat CT scan of the abdomen and pelvis to evaluate for possible fascial dehiscence, cellulitis, seroma, or abscess. Subjective No acute events overnight. Patient is tolerating a low fiber diet. Patient continues to have outputfrom his colostomy. He states he is overall been feeling well and is eager to be discharged today. He does note some pain towards the left side of his abdomen The patient denies nausea, vomiting, fever, chills, chest pain, shortness of breath. Objective Last Vitals Pulse:80,Resp:18,BP:110/70,SpO2:98 %,Weight:87.6 kg (193 lb 2 oz) Temp Last 24 hrs: Temp Min: 98.3 ??F (36.8 ??C) Max: 100.2 ??F (37.9 ??C) Last temp: 98.3 ??F (36.8 ??C) (Tympanic) Intake/Output Summary (Last 24 hours) at 05/24/2025 1105 Last data filed at 05/24/2025 1052 Gross per 24 hour Intake 490 ml Output 3980 ml Net -3490 ml Physical Exam General appearance: No acute distress Cardiovascular: Regular rate Pulmonary: No respiratory distress Abdomen: Soft, non-distended, tender to palpation on the left side of the abdomen, colostomy pink and patent with bridge in place, there is new erythema and firmness between the Gregg port site and colostomy Extremities: No edema. Relevant data reviewed Labs Notable labs are: White Blood Cell Count Date Value Ref Range Status 05/21/2025 3.5 (L) 4.0 - 11.0 Thou/uL Final Hemoglobin Date Value Ref Range Status 05/21/2025 11.5 (L) 13.0 - 17.7 g/dL Final Hematocrit Date Value Ref Range Status 05/21/2025 34.5 (L) 39.0 - 54.0 % Final Platelet Count Date Value Ref Range Status 05/21/2025 230 150 - 450 Thou/uL Final Lab Results Component Value Date NA 131 (L) 05/23/2025 K 4.1 05/23/2025 CL 98 05/23/2025 CO2 21 (L) 05/23/2025 BUN 9 05/23/2025 CREAT 0.48 (L) 05/23/2025 GLUC 85 05/23/2025 Lab Results Component Value Date CALCIUM 8.2 (L) 05/23/2025 MG 2.0 05/23/2025 PHOS 2.7 05/23/2025 Lab Results Component Value Date AST 21 05/17/2025 ALT 10 05/17/2025 ALKPHOS 85 05/17/2025 BILITOT 1.0 05/17/2025 BILIDIR 0.2 05/17/2025 ALBUMIN 3.1 (L) 05/22/2025 PROT 6.9 05/17/2025 No results found for: AMYLASE , LIPASE Lab Results Component Value Date ALBUMIN 3.1 (L) 05/22/2025 Lab Results Component Value Date CALCIUM 8.2 (L) 05/23/2025 Lab Results Component Value Date MG 2.0 05/23/2025 Lab Results Component Value Date PHOS 2.7 05/23/2025 Lab Results Component Value Date PTT 31 05/20/2025 LABPROT 16.3 (H) 05/20/2025 INR 1.4 05/20/2025 Lab Results Component Value Date COLORUA Yellow 05/21/2025 CLARITYUA Cloudy 05/21/2025 SPECGRAVUA 1.020 05/21/2025 PHUA 6.0 05/21/2025 PROTEINUA 30 (A) 05/21/2025 GLUCUA Negative 05/21/2025 KETONESUA 80 (A) 05/21/2025 BLOODUA Negative 05/21/2025 NITRITEUA Negative 05/21/2025 LEUKOCYTESUA Negative 05/21/2025 BILIUA Negative 05/21/2025 No results found for: CK , MILTON , TNI , BNP , PROBNP Imaging Studies XR Chest 1 view Result Date: 05/21/2025 EXAMINATION: XR CHEST 1 VIEW CLINICAL INFORMATION: fever workup COMPARISON: Chest radiograph 03/27/2025 TECHNIQUE: AP view of the chest was obtained. FINDINGS: Right chest port central venous catheter tip overlying the right atrium. The lungs are adequately expanded. Mild bronchial wall thickening. St reaky left mid to lower lung opacities. There is no focal consolidation, effusion, or edema. No pneumothorax. The cardiomediastinal silhouette is within normal limits. No acute osseous abnormality. Mild bronchial wall thickening. Streaky left mid to lower lung opacities may reflect atelectasis and/or infectious/inflammatory process. Interpreted by: Pb Cummins MD Bezel Cutter I personally reviewed the images and the resident's preliminary report and AGREE with the report as it is now presented ([id number]). XR Abdomen 1 view-Portable Result Date: 05/18/2025 EXAMINATION: XR ABDOMEN KUB CLINICAL INDICATION: S/p NGT insertion COMPARISON: CT abdomen and pelvis 05/17/2025 TECHNIQUE: AP view of the abdomen. FINDINGS: Enteric tube, with the tip and sidehole over the expected location of GE junction/gastric fundus. Multiple air distended loops of small and large bowel are identified, with small bowel, measuring up to 5.2 cm. Visualized lung bases are clear.No acute osseous abnormality. 1. Enteric tube, with the tip and sidehole over the expected location of GE junction/gastric fundus. 2. Multiple air distended loops of small and large bowel, with small bowel measuring up to 5.2 cm.Findings may represent ileus or partial small bowel obstruction. CT Abdomen Archive for Reference Only Result Date: 05/17/2025 This study has been auto finalized and does not contain a result. CT Abdomen Archive for Reference Only Result Date: 05/17/2025 This study has been auto finalized and does not contain a result. Other testing: CT scan pending Sign Radha Gay MD Colorectal surgery 05/24/2025 11:05 AM * Ania Workman, PT - 05/24/2025 8:48 AM EDT Physical Therapy Progress Note Precautions/Restrictions: fall, other (see comments) (skin) Assessment Summary: Patient seen for follow-up PT treatment. The patient was agreeable to the treatment session. The patient demonstrates good progress towards their PT goals. The patient was able to participate in bed mobility, transfers, ambulation and stair training this session. Riana was able to ambulateone lap with a walker and complete one flight of stairs, patient attempted gait trial with no device - though noted to have several significant balance losses without the walker, with the walker he demonstrated improved stability. Anticipate Riana is safe to transition home with Home PT, rolling walker (he owns) and assistance as needed from social supports. Progress Towards Goals: progress toward functional goals is good Outcome Measures: The Activity Measure for Post-Acute Care (AM-PAC) Basic Mobility Inpatient Short Form (6-clicks) rafa standardized measure used to quantify functional deficits in mobility. The total score of the measure ranges from 6-24. A higher score indicates a higher level of independence with functional mobility. Current [facility] Basic Mobility Score: 22 Rehab Plan of Care PT will continue to follow-up with the patient to assess and treat their functional mobility deficits impacting their bed mobility, transfers, ambulation and stair negotiation. Next session will continue to work on OOB mobility endurance. Would continue to encourage this patient to mobilize daily with nursing staff as well to assist with maintaining their current functional mobility levels, see recommendations below. PT Recommendations for Staff: Ax1 RW Amb 3x/day, OOB to chair prn PT Frequency during Hospitalization: 2-3 times/wk Plan of Care Reviewed With: patient Objective Data/Intervention Bed Mobility Assessment/Intervention: modified independent for all bed mobility interventions Transfers Assessment/Intervention: CGA for sit to stand from EOB with RW and cueing for improved form + performance Gait/Stair Assessment/Intervention: 400' ambulation with RW, gait belt + CGA, patient with overall decreased gait speed, patient able to negotiate 10 stairs with one railing, cued for step to step pattern throughout - steady with no balance losses noted Neuromuscular Re-Education Assessment/Intervention: good sitting balance, fair standing balance with RW, fair (-)/poor dynamic standing balance with no device Activity Tolerance/Endurance Assessment/Intervention: good for PT session on room air. Education: PT POC, D/C recs, safety with functional mobility. Subjective I'm going home today. Flowsheet Data 05/24/25 0848 Physical Therapy Time and Intention PT Follow-Up Visit follow up treatment Mode of Treatment physical therapy Patient Effort good Symptoms Noted During/After Treatment fatigue General Information Patient Profile Reviewed yes Patient/Family/Caregiver Comments/Observations I'm going home today. General Observations of Patient Patient received resting supine, in NAD, on room air, agreeable to PT session. Existing Precautions/Restrictions fall;other (see comments) (skin) Pain Additional Documentation Pain Scale: Word Pre/Post-Treatment (Group) Pre/Posttreatment Pain Comment (Word Scale) no pain endorsed Cognition Cognitive Status WFL Coping Observed Emotional State calm;cooperative Verbalized Emotional State acceptance Trust Relationship/Rapport care explained;choices provided;empathic listening provided;emotional support provided;questions answered;reassurance provided;questions encouraged;thoughts/feelings acknowledged Family/Support Persons patient Involvement in Care participating in care;supportive of patient Family/Support System Care support provided;self-care encouraged Diversional Activities television Plan of Care Review Plan of Care Reviewed With patient Safety Safety WDL WDL All Alarms alarm(s) activated and audible Enhanced Safety Measures chair alarm set Additional Documentation All Alarms (Row) Progressive Mobility Progressive Mobility Level Achieved Ambulation Ambulation Distance (Feet) 400 [facility] Basic Mobility Turning from your back to your side while in a flat bed without using bedrails? 4 Moving from lying on your back to sitting on the side of a flat bed without using bedrails? 4 Moving to and from a bed to a chair (including wheelchair)? 4 Standing up from a chair using your arms? 4 To walk in a hospital room? 3 Climbing 3-5 steps with a railing? 3 [facility] Basic Mobility Score 22 Therapy Assessment/Plan (PT) PT Recommendations for Staff Ax1 RW Amb 3x/day, OOB to chair prn Progress Summary (PT) Progress Toward Functional Goals (PT) progress toward functional goals is good Therapy Plan Review/Discharge Plan (PT) Therapy Plan Review (PT) patient Bed Mobility Goal 1 (PT) Progress/Outcomes (Bed Mobility Goal 1, PT) goal partially met Transfer Goal 1 (PT) Progress/Outcome (Transfer Goal 1, PT) goal partially met Gait Training Goal 1 (PT) Progress/Outcome (Gait Training Goal 1, PT) goal partially met Stairs Goal 1 (PT) Progress/Outcome (Stairs Goal 1, PT) goal partially met Sign: Ania Workman PT Please reach out to this brief writer via [employer] with any questions. * Rosanna Day RN - 05/23/2025 11:43 AM EDT 05/23/25 1142 Discharge Coordination/Tasks Status Post Discharge Needs/Treatments Nursing Home Home Visit;PT Patient/Patient Body Artist Provided With [facility] Of Home[facility] Company Preferences(s) Homecare Company Preference(s) [facility] Case Management Care Plan Note Summary: CM spoke with patient and his spouse at bedside per family's request. Spouse stated that patient is active with [facility] for homecare services. CM answered all questions regarding discharge plan. CM contacted [facility] @ [phone] who confirmed patient is active with services. CM also updated agency on plan for discharge tomorrow. Requested to have discharge paperwork faxed @ [phone]. Recommendation: Anticipate transition home with services when medically stable. * Ania Workman, PT - 05/23/2025 9:02 AM EDT Physical Therapy Contact Note Chart reviewed prior to attempted PT treatment session. Patient endorses he had just returned from ambulating with staff and is resting. Spoke with RN. Will follow up as appropriate. Encourage safe mobility. 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 Patient required aggressive potassium and phosphate repletion yesterday. He was advanced to a low fiber diet which he is tolerating well without issues, with return of bowel function. Will monitor on home anticoagulation today. Plan - Diet: Low fiber - Restart eliquis 5mg BID - PT/OT -Continue ostomy care today - DVT ppx: hep gtt, SCDs - Pain control - Monitor vitals / strict I&Os - Pulmonary hygiene, IS - OOB and activity as tolerated - Please contact [facility] with any questions Principal Problem: Large bowel obstruction (HCC) (POA: Yes) Active Problems: ADHD (POA: Unknown) HTN (hypertension) (POA: Unknown) History of pulmonary embolus (PE) (POA: Unknown) GERD (gastroesophageal reflux disease) (POA: Unknown) Rectal cancer metastasized to liver (HCC) (POA: Unknown) Anxiety (POA: Unknown) Severe malnutrition:Severe fat depletion(bicep/tricep fat pads) and severe muscle depletion (quadriceps and gastrocnemius) (POA: Yes) Resolved Problems: Subjective No fevers in the last 24 hours. Patient had low potassium yesterday of 2.4, received potassium repletion to 4.9. He was evaluated by physical and occupational therapy. Seen by manager data yesterday. Producing 325 mL stool, tolerating low fiber diet. Denies n/v, abdominal pain. Ambulating without issue s, voiding freely. Objective Last Vitals Pulse:92,Resp:18,BP:120/64,SpO2:97 %,Weight:87.6 kg (193 lb 2 oz) Temp Last 24 hrs: Temp Min: 98.5 ??F (36.9 ??C) Max: 99.7 ??F (37.6 ??C) Last temp: 99.1 ??F (37.3 ??C) (Tympanic) Patient to receive supplements: specific meal/ supplement; Supplements with: Lunch; Order: Ensure Clear, Apple, 8 oz; Supplements with: Dinner; Order: Ensure Clear, Apple, 8 oz Patient to receive supplements: specific meal/ supplement; Supplements with: Dinner; Order: Gelatein Plus, Lemon Diet Additional Diets; Low Fiber/ Low Residue Date 05/22/25 07 - 05/23/25 0605/23/25 07 - 05/24/25 0659 Shift 8720-8385 9065-0197 0642-0857 24 Hour Total 7213-2551 5402-0883 2422-8509 24 Hour Total INTAKE P.O. 940 940 I.V.(mL/kg) 13.6(0.2) 40(0.5) 1699.3(19.4) 1752.9(20) IV Piggyback 350 100 450 Shift Total(mL/kg) 1303.6(14.9) 140(1.6) 1699.3(19.4) 3142.9(35.9) OUTPUT Urine(mL/kg/hr) 500(0.7) 150(0.2) 350 1000 Stool 200 125 325 Shift Total(mL/kg) 500(5.7) 350(4) 475(5.4) 1325(15.1) Weight (kg) 87.6 87.6 87.6 87.6 87.6 87.6 87.6 87.6 Physical Exam Gen: alert, no acute distress Card: regular rate Pulm: normal effort of breathing with no signs of acute respiratory distress Abd: soft, nondistended, appropriately TTP, ostomy pink patent viable with gas and solid stool Skin: warm and dry VTE Time Out IMPROVE SCORE: 7 (05/17/2025 11:40 PM) Interpretation - High Risk Chemical Prophylaxis apixaban (ELIQUIS) tablet 5 mg Oral Every 12 hours scheduled [ORDER ON HOLD or LAST DOSE HELD - Please Review] heparin (porcine) IV infusion 25,000 units in 500 mL 0.45% NaCl (premix) Intravenous Continuous heparin (porcine) 1000 unit/mL injection 2,600 Units Intravenous Every 6 hours PRN heparin (porcine) 1000 unit/mL injection 1,800 Units Intravenous Every 6 hours PRN Heparin (Porcine) in NaCl, Heparin Sodium (Porcine) 5000 Units Last dose 05/20/2025 6:01 AM Mechanical Prophylaxis SCDs are ordered - Bilateral (Knee High) Labs: White Blood Cell Count Date Value Ref Range Status 05/21/2025 3.5 (L) 4.0 - 11.0 Thou/uL Final Hemoglobin Date Value Ref Range Status 05/21/2025 11.5 (L) 13.0 - 17.7 g/dL Final Hematocrit Date Value Ref Range Status 05/21/2025 34.5 (L) 39.0 - 54.0 % Final Platelet Count Date Value Ref Range Status 05/21/2025 230 150 - 450 Thou/uL Final Lab Results Component Value Date NA 135 (L) 05/22/2025 K 4.9 05/22/2025 CL 102 05/22/2025 CO2 22 05/22/2025 BUN 8 05/22/2025 CREAT 0.41 (L) 05/22/2025 GLUC 83 05/22/2025 Lab Results Component Value Date CALCIUM 8.0 (L) 05/22/2025 MG 1.9 05/22/2025 PHOS 2.9 05/22/2025 Lab Results Component Value Date AST 21 05/17/2025 ALT 10 05/17/2025 ALKPHOS 85 05/17/2025 BILITOT 1.0 05/17/2025 BILIDIR 0.2 05/17/2025 ALBUMIN 3.1 (L) 05/22/2025 PROT 6.9 05/17/2025 No results found for: AMYLASE , LIPASE Lab Results Component Value Date PTT 31 05/20/2025 LABPROT 16.3 (H) 05/20/2025 INR 1.4 05/20/2025 Imaging Studies XR Abdomen 1 view-Portable Result Date: 05/18/2025 EXAMINATION: XR ABDOMEN KUB CLINICAL INDICATION: S/p NGT insertion COMPARISON: CT abdomen and pelvis 05/17/2025 TECHNIQUE: AP view of the abdomen. FINDINGS: Enteric tube, with the tip and sidehole over the expected location of GE junction/gastric fundus. Multiple air distended loops of small and large bowel are identified, with small bowel, measuring up to 5.2 cm. Visualized lung bases are clear.No acute osseous abnormality. 1. Enteric tube, with the tip and sidehole over the expected location of GE junction/gastric fundus. 2. Multiple air distended loops of small and large bowel, with small bowel measuring up to 5.2 cm.Findings may represent ileus or partial small bowel obstruction. Electronically Signed Prosper Cool MD General Surgery, PGY-2 05/23/2025 5:54 AM Cosigned by Radha Gay MD at 05/23/2025 12:24 PM EDT Associated attestation - Radha Gay MD - 05/23/2025 12:24 PM EDT Surgery Attending Attestation I have personally interviewed and examined the patient and reviewed the note below. I agree with the history, exam, assessment and plan as detailed in the note with the following additions/exceptions/observations: 60-year-old male status post laparoscopic loop colostomy creation on 05/19 for large bowel obstruction. His colostomy continues with stool output. Will transition to oral anticoagulant today. He is tolerating low fiber diet well. Will continue ostomy teaching. Will plan for potential discharge tomorrow. 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 He is doing well on a clear liquid diet, however his potassium very low 2.4, phos 2.1 which are being repleted. Provided ostomy care yesterday.Fever workup negative so far, pt on heparin gtt low concern for PE, spO2 >95% on RA. Plan - Diet: Maintain cld - PT/OT - Recheck 2pm bmp - DVT ppx: hep gtt, SCDs - Pain control - Monitor vitals / strict I&Os - Pulmonary hygiene, IS - OOB and activity as tolerated - Please contact [facility] with any questions Principal Problem: Large bowel obstruction (HCC) (POA: Yes) Active Problems: ADHD (POA: Unknown) HTN (hypertension) (POA: Unknown) History of pulmonary embolus (PE) (POA: Unknown) GERD (gastroesophageal reflux disease) (POA: Unknown) Rectal cancer metastasized to liver (HCC) (POA: Unknown) Anxiety (POA: Unknown) Severe malnutrition:Severe fat depletion(bicep/tricep fat pads) and severe muscle depletion (quadriceps and gastrocnemius) (POA: Yes) Resolved Problems: Subjective Pt had fever overnight prompting workup. UA negative. CXR without acute findings. Pt feels well this am, denies nausea/vomiting. His ostomy is functioning 325ml stool and gas. Objective Last Vitals Pulse:(!) 104,Resp:20,BP:132/80,SpO2:97 %,Weight:87.6 kg (193 lb 2 oz) Temp Last 24 hrs: Temp Min: 98.1 ??F (36.7 ??C) Max: 101.5 ??F (38.6 ??C) Last temp: (!) 100.7 ??F (38.2 ??C) (Tympanic) Diet Clear Liquid Patient to receive supplements: specific meal/ supplement; Supplements with: Lunch; Order: Ensure Clear, Apple, 8 oz; Supplements with: Dinner; Order: Ensure Clear, Apple, 8 oz Patient to receive supplements: specific meal/ supplement; Supplements with: Dinner; Order: Gelatein Plus, Lemon Date 05/21/25 07 - 05/22/25 0659 05/22/25 07 - 05/23/25 0659 Shift 4404-1341 9259-5010 1024-0824 24 Hour Total 4585-5357 4444-5574 1283-0615 24 Hour Total INTAKE P.O. 360 360 I.V.(mL/kg) 13.6(0.2) 325.8(3.7) 339.4(3.9) IV Piggyback 50 600 650 Shift Total(mL/kg) 63.6(0.7) 1285.8(14.7) 1349.4(15.4) OUTPUT Urine(mL/kg/hr) 850(1.2) 1000 1850 Stool 125 250 375 Shift Total(mL/kg) 850(9.7) 125(1.4) 1250(14.3) 2225(25.4) Weight (kg) 87.6 87.6 87.6 87.6 87.6 87.6 87.6 87.6 Physical Exam Gen: alert, no acute distress Card: regular rate Pulm: normal effort of breathing with no signs of acute respiratory distress Abd: soft, nondistended, appropriately TTP, ostomy pink patent viable with gas and solid stool Skin: warm and dry VTE Time Out IMPROVE SCORE: 7 (05/17/2025 11:40 PM) Interpretation - High Risk Chemical Prophylaxis apixaban (ELIQUIS) tablet 5 mg Oral Every 12 hours scheduled [ORDER ON HOLD or LAST DOSE HELD - Please Review] heparin (porcine) IV infusion 25,000 units in 500 mL 0.45% NaCl (premix) Intravenous Continuous heparin (porcine) 1000 unit/mL injection 2,600 Units Intravenous Every 6 hours PRN heparin (porcine) 1000 unit/mL injection 1,800 Units Intravenous Every 6 hours PRN Apixaban, Heparin (Porcine) in NaCl, Heparin Sodium (Porcine) 5000 Units Last dose 05/20/2025 6:01 AM Mechanical Prophylaxis SCDs are ordered - Bilateral (Knee High) Labs: White Blood Cell Count Date Value Ref Range Status 05/21/2025 3.5 (L) 4.0 - 11.0 Thou/uL Final Hemoglobin Date Value Ref Range Status 05/21/2025 11.5 (L) 13.0 - 17.7 g/dL Final Hematocrit Date Value Ref Range Status 05/21/2025 34.5 (L) 39.0 - 54.0 % Final Platelet Count Date Value Ref Range Status 05/21/2025 230 150 - 450 Thou/uL Final Lab Results Component Value Date NA 139 05/22/2025 K 2.4 (LL) 05/22/2025 CL 106 05/22/2025 CO2 16 (L) 05/22/2025 BUN 5 (L) 05/22/2025 CREAT 0.35 (L) 05/22/2025 GLUC 75 05/22/2025 Lab Results Component Value Date CALCIUM 6.3 (LL) 05/22/2025 MG 1.5 (L) 05/22/2025 PHOS 2.1 (L) 05/22/2025 Lab Results Component Value Date AST 21 05/17/2025 ALT 10 05/17/2025 ALKPHOS 85 05/17/2025 BILITOT 1.0 05/17/2025 BILIDIR 0.2 05/17/2025 ALBUMIN 3.8 05/17/2025 PROT 6.9 05/17/2025 No results found for: AMYLASE , LIPASE Lab Results Component Value Date PTT 31 05/20/2025 LABPROT 16.3 (H) 05/20/2025 INR 1.4 05/20/2025 Imaging Studies XR Abdomen 1 view-Portable Result Date: 05/18/2025 EXAMINATION: XR ABDOMEN KUB CLINICAL INDICATION: S/p NGT insertion COMPARISON: CT abdomen and pelvis 05/17/2025 TECHNIQUE: AP view of the abdomen. FINDINGS: Enteric tube, with the tip and sidehole over the expected location of GE junction/gastric fundus. Multiple air distended loops of small and large bowel are identified, with small bowel, measuring up to 5.2 cm. Visualized lung bases are clear.No acute osseous abnormality. 1. Enteric tube, with the tip and sidehole over the expected location of GE junction/gastric fundus. 2. Multiple air distended loops of small and large bowel, with small bowel measuring up to 5.2 cm.Findings may represent ileus or partial small bowel obstruction. Electronically Signed Prosper Cool MD General Surgery, PGY-2 05/22/2025 6:55 AM Cosigned by Radha Gay MD at 05/22/2025 2:52 PM EDT Associated attestation - Radha Gay MD - 05/22/2025 2:52 PM EDT Surgery Attending Attestation I have personally interviewed and examined the patient and reviewed the note below. I agree with the history, exam, assessment and plan as detailed in the note with the following additions/exceptions/observations: He had 1 temperature last night to 101.5. He is currently afebrile. He is tolerating a clear liquiddiet and continues to have stool output from his colostomy. Will continue clear liquid diet for today. Will follow-up fever workup. His abdomen is soft, nondistended, appropriately tender to palpation, colostomy is pink and patent with liquid stool in the bag. 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 Patient had NG tube removed overnight and doing well with sips. We will advance his diet to clears today. Plan - Diet: Advance to clear liquid diet, DC mIVF once tolerating -PT/OT - DVT ppx: hep gtt, SCDs - Pain control - Monitor vitals / strict I&Os - Pulmonary hygiene, IS - OOB and activity as tolerated - Please contact [facility] with any questions Principal Problem: Large bowel obstruction (HCC) (POA: Yes) Active Problems: ADHD (POA: Unknown) HTN (hypertension) (POA: Unknown) History of pulmonary embolus (PE) (POA: Unknown) GERD (gastroesophageal reflux disease) (POA: Unknown) Rectal cancer metastasized to liver (HCC) (POA: Unknown) Anxiety (POA: Unknown) Resolved Problems: Subjective NGT removed overnight after gravity trial, advanced to sips of cld. Patient had 20 mL in his ostomyat bedside, with gas. Tolerating sips without nausea or vomiting. Denies any abdominal distention. Objective Last Vitals Pulse:84,Resp:18,BP:136/64,SpO2:98 %,Weight:87.6 kg (193 lb 2 oz) Temp Last 24 hrs: Temp Min: 97.8 ??F (36.6 ??C) Max: 99.8 ??F (37.7 ??C) Last temp: 99.8 ??F (37.7 ??C) (Tympanic) Diet NPO; Sips of clears, Ice chips Date 05/20/25 07 - 05/21/25 0659 05/21/25 07 - 05/22/25 0659 Shift 8741-2885 5388-1727 2626-4706 24 Hour Total 6384-8129 9614-8183 7913-7240 24 Hour Total INTAKE I.V.(mL/kg) 15.8(0.2) 0.6(0) 20(0.2) 36.4(0.4) NG/GT 30 30 IV Piggyback 200 350 250 800 Shift Total(mL/kg) 245.8(2.8) 350.6(4) 270(3.1) 866.4(9.9) OUTPUT Urine(mL/kg/hr) 1300(1.9) 2950(4.2) 1200 5450 Stool 0 0 0 Shift Total(mL/kg) 1300(14.8) 2950(33.7) 1200(13.7) 5450(62.2) Weight (kg) 87.6 87.6 87.6 87.6 87.6 87.6 87.6 87.6 Physical Exam Gen: alert, no acute distress Card: regular rate Pulm: normal effort of breathing with no signs of acute respiratory distress Abd: soft, nondistended, appropriately TTP, ostomy pink patent viable with gas and smears of brown stool. Skin: warm and dry VTE Time Out IMPROVE SCORE: 7 (05/17/2025 11:40 PM) Interpretation - High Risk Chemical Prophylaxis apixaban (ELIQUIS) tablet 5 mg Oral Every 12 hours scheduled [ORDER ON HOLD or LAST DOSE HELD - Please Review] heparin (porcine) IV infusion 25,000 units in 500 mL 0.45% NaCl (premix) Intravenous Continuous heparin (porcine) 1000 unit/mL injection 2,600 Units Intravenous Every 6 hours PRN heparin (porcine) 1000 unit/mL injection 1,800 Units Intravenous Every 6 hours PRN Apixaban, Heparin (Porcine) in NaCl, Heparin Sodium (Porcine) 5000 Units Last dose 05/20/2025 6:01 AM Mechanical Prophylaxis SCDs are ordered - Bilateral (Knee High) Labs: White Blood Cell Count Date Value Ref Range Status 05/20/2025 2.3 (L) 4.0 - 11.0 Thou/uL Final Hemoglobin Date Value Ref Range Status 05/20/2025 10.0 (L) 13.0 - 17.7 g/dL Final Hematocrit Date Value Ref Range Status 05/20/2025 30.3 (L) 39.0 - 54.0 % Final Platelet Count Date Value Ref Range Status 05/20/2025 194 150 - 450 Thou/uL Final Lab Results Component Value Date NA 136 05/20/2025 K 3.5 05/20/2025 CL 101 05/20/2025 CO2 21 (L) 05/20/2025 BUN 6 (L) 05/20/2025 CREAT 0.33 (L) 05/20/2025 GLUC 78 05/20/2025 Lab Results Component Value Date CALCIUM 8.3 (L) 05/20/2025 MG 1.6 05/20/2025 PHOS 1.7 (L) 05/20/2025 Lab Results Component Value Date AST 21 05/17/2025 ALT 10 05/17/2025 ALKPHOS 85 05/17/2025 BILITOT 1.0 05/17/2025 BILIDIR 0.2 05/17/2025 ALBUMIN 3.8 05/17/2025 PROT 6.9 05/17/2025 No results found for: AMYLASE , LIPASE Lab Results Component Value Date PTT 31 05/20/2025 LABPROT 16.3 (H) 05/20/2025 INR 1.4 05/20/2025 Imaging Studies XR Abdomen 1 view-Portable Result Date: 05/18/2025 EXAMINATION: XR ABDOMEN KUB CLINICAL INDICATION: S/p NGT insertion COMPARISON: CT abdomen and pelvis 05/17/2025 TECHNIQUE: AP view of the abdomen. FINDINGS: Enteric tube, with the tip and sidehole over the expected location of GE junction/gastric fundus. Multiple air distended loops of small and large bowel are identified, with small bowel, measuring up to 5.2 cm. Visualized lung bases are clear.No acute osseous abnormality. 1. Enteric tube, with the tip and sidehole over the expected location of GE junction/gastric fundus. 2. Multiple air distended loops of small and large bowel, with small bowel measuring up to 5.2 cm.Findings may represent ileus or partial small bowel obstruction. Electronically Signed Prosper Cool MD General Surgery, PGY-2 05/21/2025 5:03 AM Cosigned by Radha Gay MD at 05/21/2025 3:50 PM EDT Associated attestation - Radha Gay MD - 05/21/2025 3:50 PM EDT Surgery Attending Attestation I have personally interviewed and examined the patient and reviewed the note below. I agree with the history, exam, assessment and plan as detailed in the note with the following additions/exceptions/observations: 60-year-old male postop day 2 status post laparoscopic loop colostomy creation. His NG tube was removed yesterday. He has been having stool output from his colostomy. Bridge was sutured in place and will remain in place as he is at high risk for poor wound healing secondary to recent Avastin use. Will continue to clear liquid diet today. Radha Gay MD 3:50 PM * Geneva Salazar MD - 05/20/2025 12:34 AM EDT Daily General Surgery Progress Note Assessment & Plan Riana Coreas is a 60 y.o. male with history of metastatic rectal cancer admitted for LBO. Patient with pain well controlled this am. NGT in place draining dark bilious output. Patient is now pod#1 s/p loop colostomy formation. Plan - Diet: npo - mIVF - DVT ppx: start hep gtt - Pain control - Will gravity NGT today - Monitor vitals / strict I&Os - Pulmonary hygiene, IS - OOB and activity as tolerated - Please contact [facility] with any questions Principal Problem: Large bowel obstruction (HCC) (POA: Yes) Active Problems: ADHD (POA: Unknown) HTN (hypertension) (POA: Unknown) History of pulmonary embolus (PE) (POA: Unknown) GERD (gastroesophageal reflux disease) (POA: Unknown) Rectal cancer metastasized to liver (HCC) (POA: Unknown) Anxiety (POA: Unknown) Resolved Problems: Subjective No acute events overnight. Pain currently well controlled. Denies nausea and vomiting. Voiding spontaneously. passing flatus and stool via ostomy. Objective Last Vitals Pulse:73,Resp:18,BP:(!) 144/76,SpO2:99 %,Weight:87.6 kg (193 lb 2 oz) Temp Last 24 hrs: Temp Min: 94.2 ??F (34.6 ??C) Max: 97.5 ??F (36.4 ??C) Last temp: (!) 94.2 ??F (34.6 ??C) (Tympanic) Diet NPO Date 05/19/25699 - 05/20/2565805/20/25699 - 05/21/25 0659 Shift 1290-9959 5058-1364 1567-4696 24 Hour Total 8250-8507 6617-2311 2315-1217 24 Hour Total INTAKE I.V.(mL/kg) 1823.4(20.8) 1(0) 20(0.2) 1844.4(21.1) NG/GT 30 30 60 IV Piggyback 650 650 Shift Total(mL/kg) 1853.4(21.2) 651(7.4) 50(0.6) 2554.4(29.2) OUTPUT Urine(mL/kg/hr) 300(0.4) 700(1) 1000 Other 350 350 Stool 800 800 Blood 5 5 Shift Total(mL/kg) 305(3.5) 1850(21.1) 2155(24.6) Weight (kg) 87.6 87.6 87.6 87.6 87.6 87.6 87.6 87.6 Physical Exam Gen: alert, no acute distress Card: regular rate Pulm: normal effort of breathing with no signs of acute respiratory distress Abd: soft, nondistended, appropriately TTP, ostomy pink patent viable with output Skin: warm and dry VTE Time Out IMPROVE SCORE: 7 (05/17/2025 11:40 PM) Interpretation - High Risk Chemical Prophylaxis apixaban (ELIQUIS) tablet 5 mg Oral Every 12 hours scheduled [ORDER ON HOLD or LAST DOSE HELD - Please Review] heparin (porcine) IV infusion 25,000 units in 500 mL 0.45% NaCl (premix) Intravenous Continuous [ORDER ON HOLD or LAST DOSE HELD - Please Review] heparin (porcine) 1000 unit/mL injection 2,600 Units Intravenous Every 6 hours PRN [ORDER ON HOLD or LAST DOSE HELD - Please Review] heparin (porcine) 1000 unit/mL injection 1,800 Units Intravenous Every 6 hours PRN [ORDER ON HOLD or LAST DOSE HELD - Please Review] heparin (porcine) 5000 unit/mL injection 5,000 Units Subcutaneous Every 8 hours scheduled Apixaban 5 mg Last dose 05/18/2025 12:30 AM Heparin Sodium (Porcine) 5000 Units Last dose 05/19/2025 9:16 PM Mechanical Prophylaxis SCDs are ordered - Bilateral (Knee High) Labs: White Blood Cell Count Date Value Ref Range Status 05/19/2025 1.6 (LL) 4.0 - 11.0 Thou/uL Final Comment: Results verified by smear review. Hemoglobin Date Value Ref Range Status 05/19/2025 10.2 (L) 13.0 - 17.7 g/dL Final Hematocrit Date Value Ref Range Status 05/19/2025 30.6 (L) 39.0 - 54.0 % Final Platelet Count Date Value Ref Range Status 05/19/2025 163 150 - 450 Thou/uL Final Lab Results Component Value Date NA 139 05/19/2025 K 4.0 05/19/2025 CL 102 05/19/2025 CO2 20 (L) 05/19/2025 BUN 9 05/19/2025 CREAT 0.41 (L) 05/19/2025 GLUC 136 (H) 05/19/2025 Lab Results Component Value Date CALCIUM 8.3 (L) 05/19/2025 MG 1.7 05/19/2025 PHOS 3.4 05/19/2025 Lab Results Component Value Date AST 21 05/17/2025 ALT 10 05/17/2025 ALKPHOS 85 05/17/2025 BILITOT 1.0 05/17/2025 BILIDIR 0.2 05/17/2025 ALBUMIN 3.8 05/17/2025 PROT 6.9 05/17/2025 No results found for: AMYLASE , LIPASE Lab Results Component Value Date PTT 37 (H) 05/18/2025 LABPROT 25.7 (H) 05/18/2025 INR 2.2 05/18/2025 Imaging Studies XR Abdomen 1 view-Portable Result Date: 05/18/2025 EXAMINATION: XR ABDOMEN KUB CLINICAL INDICATION: S/p NGT insertion COMPARISON: CT abdomen and pelvis 05/17/2025 TECHNIQUE: AP view of the abdomen. FINDINGS: Enteric tube, with the tip and sidehole over the expected location of GE junction/gastric fundus. Multiple air distended loops of small and large bowel are identified, with small bowel, measuring up to 5.2 cm. Visualized lung bases are clear.No acute osseous abnormality. 1. Enteric tube, with the tip and sidehole over the expected location of GE junction/gastric fundus. 2. Multiple air distended loops of small and large bowel, with small bowel measuring up to 5.2 cm.Findings may represent ileus or partial small bowel obstruction. Electronically Signed Geneva Salazar MD General Surgery, PGY-1 05/20/2025 12:34 AM * Radha Gay MD - 05/19/2025 8:45 AM EDT Progress Note Principal Problem: Large bowel obstruction (HCC) (POA: Yes) Active Problems: ADHD (POA: Unknown) HTN (hypertension) (POA: Unknown) History of pulmonary embolus (PE) (POA: Unknown) GERD (gastroesophageal reflux disease) (POA: Unknown) Rectal cancer metastasized to liver (HCC) (POA: Unknown) Anxiety (POA: Unknown) Resolved Problems: Assessment & Plan Assessment 60-year-old male who presents with large bowel obstruction with incompetent ileocecal valve secondary to occluded stent in the setting of metastatic rectal cancer. He is currently on Avastin which hela received on 05/15 and is on blood thinners for pulmonary embolism which are currently held. Plan - Diet: N.p.o. - NG tube to continuous low wall suction - Will plan for colostomy creation today in setting of large bowel obstruction - Discussed with oncology yesterday given recent Avastin use, no further interventions required in setting of recent Avastin - Pain control - Nausea control - DVT ppx: SCD, anticoagulation currently on hold for OR - OOB/IS - Strict I's and O's Subjective No acute events overnight. Patient remains n.p.o. with NG tube in place. He had 3 recorded bowel movements over the past 24 hours and his NG tube has been putting out bilious output. The patient denies nausea, vomiting, fever, chills, chest pain, shortness of breath. Objective Last Vitals Pulse:84,Resp:18,BP:131/82,SpO2:96 %,Weight:87.6 kg (193 lb 2 oz) Temp Last 24 hrs: Temp Min: 97.5 ??F (36.4 ??C) Max: 98.3 ??F (36.8 ??C) Last temp: 97.5 ??F (36.4 ??C) (Tympanic) Intake/Output Summary (Last 24 hours) at 05/19/2025 0845 Last data filed at 05/19/2025 0600 Gross per 24 hour Intake 110 ml Output 1700 ml Net -1590 ml Physical Exam General appearance: No acute distress Cardiovascular: Regular rate Pulmonary: No respiratory distress Abdomen: Soft, moderately distended but improved from yesterday, minimal pain to palpation Extremities: No edema. Relevant data reviewed Labs Notable labs are: White Blood Cell Count Date Value Ref Range Status 05/19/2025 1.6 (LL) 4.0 - 11.0 Thou/uL Final Comment: Results verified by smear review. Hemoglobin Date Value Ref Range Status 05/19/2025 10.2 (L) 13.0 - 17.7 g/dL Final Hematocrit Date Value Ref Range Status 05/19/2025 30.6 (L) 39.0 - 54.0 % Final Platelet Count Date Value Ref Range Status 05/19/2025 163 150 - 450 Thou/uL Final Lab Results Component Value Date NA 139 05/19/2025 K 2.9 (L) 05/19/2025 CL 102 05/19/2025 CO2 22 05/19/2025 BUN 11 05/19/2025 CREAT 0.45 (L) 05/19/2025 GLUC 89 05/19/2025 Lab Results Component Value Date CALCIUM 8.2 (L) 05/19/2025 MG 1.7 05/19/2025 PHOS 2.2 (L) 05/19/2025 Lab Results Component Value Date AST 21 05/17/2025 ALT 10 05/17/2025 ALKPHOS 85 05/17/2025 BILITOT 1.0 05/17/2025 BILIDIR 0.2 05/17/2025 ALBUMIN 3.8 05/17/2025 PROT 6.9 05/17/2025 No results found for: AMYLASE , LIPASE Lab Results Component Value Date ALBUMIN 3.8 05/17/2025 Lab Results Component Value Date CALCIUM 8.2 (L) 05/19/2025 Lab Results Component Value Date MG 1.7 05/19/2025 Lab Results Component Value Date PHOS 2.2 (L) 05/19/2025 Lab Results Component Value Date PTT 37 (H) 05/18/2025 LABPROT 25.7 (H) 05/18/2025 INR 2.2 05/18/2025 No results found for: COLORUA , CLARITYUA , SPECGRAVUA , PHUA , PROTEINUA , GLUCUA , KETONESUA , BLOODUA , NITRITEUA , LEUKOCYTESUA , BILIUA , UROBILINOGEN No results found for: CK , MILTON , TNI , BNP , PROBNP Imaging Studies XR Abdomen 1 view-Portable Result Date: 05/18/2025 EXAMINATION: XR ABDOMEN KUB CLINICAL INDICATION: S/p NGT insertion COMPARISON: CT abdomen and pelvis 05/17/2025 TECHNIQUE: AP view of the abdomen. FINDINGS: Enteric tube, with the tip and sidehole over the expected location of GE junction/gastric fundus. Multiple air distended loops of small and large bowel are identified, with small bowel, measuring up to 5.2 cm. Visualized lung bases are clear.No acute osseous abnormality. 1. Enteric tube, with the tip and sidehole over the expected location of GE junction/gastric fundus. 2. Multiple air distended loops of small and large bowel, with small bowel measuring up to 5.2 cm.Findings may represent ileus or partial small bowel obstruction. CT Abdomen Archive for Reference Only Result Date: 05/17/2025 This study has been auto finalized and does not contain a result. CT Abdomen Archive for Reference Only Result Date: 05/17/2025 This study has been auto finalized and does not contain a result. Other testing: Sign Radha Gay MD Colorectal surgery 05/19/2025 8:45 AM * Mandeep Randhawa MD - 05/19/2025 5:34 AM EDT Daily General Surgery Progress Note Assessment & Plan Pt is a 60 y.o. male with PMH of metastatic rectal cancer admitted for LBO. Patient with pain well controlled this am. NGT in place draining dark bilious output, 800cc/24hr. Carlton draining concentrated urine. Added on, consented, and ostomy site marked for OR today. Patient will have loop colostomyperformed. Plan - plan for OR today for open diverting ostomy creation - Keep NPO, IVF - DVT ppx: held prior to OR - NGT-LWS, KUB demonstrating appropriate placement - replete electrolytes to maintain K > 4, Mg > 2 - IV meds - remainder of care per primary team Principal Problem: Large bowel obstruction (HCC) (POA: Yes) Active Problems: ADHD (POA: Unknown) HTN (hypertension) (POA: Unknown) History of pulmonary embolus (PE) (POA: Unknown) GERD (gastroesophageal reflux disease) (POA: Unknown) Rectal cancer metastasized to liver (HCC) (POA: Unknown) Anxiety (POA: Unknown) Resolved Problems: Subjective No acute events overnight. Pain well controlled under current regimen, positive flatus, positive bowel movements yesterday, carlton draining, minimally OOB and ambulating. Patient denies fever, chills, nausea, vomiting, chest pain, shortness of breath. Objective Last Vitals Pulse:83,Resp:17,BP:133/82,SpO2:95 %,Weight:87.6 kg (193 lb 2 oz) Temp Last 24 hrs: Temp Min: 97.1 ??F (36.2 ??C) Max: 98.3 ??F (36.8 ??C) Last temp: 98.3 ??F (36.8 ??C) (Tympanic) Intake/Output Summary (Last 24 hours) at 05/19/2025 0534 Last data filed at 05/19/2025 0045 Gross per 24 hour Intake 110 ml Output 1100 ml Net -990 ml Physical Exam Gen: alert, no acute distress Card: regular rate and rhythm Pulm: normal effort of breathing with no signs of acute respiratory distress on RA Abd: soft, mild diffuse tenderness in all quadrants, non-distended. Skin: warm and dry with no erythema Labs: White Blood Cell Count Date Value Ref Range Status 05/18/2025 2.1 (L) 4.0 - 11.0 Thou/uL Final Hemoglobin Date Value Ref Range Status 05/18/2025 11.1 (L) 13.0 - 17.7 g/dL Final Hematocrit Date Value Ref Range Status 05/18/2025 33.7 (L) 39.0 - 54.0 % Final Platelet Count Date Value Ref Range Status 05/18/2025 174 150 - 450 Thou/uL Final Lab Results Component Value Date NA 132 (L) 05/17/2025 K 3.5 05/17/2025 CL 95 (L) 05/17/2025 CO2 24 05/17/2025 BUN 12 05/17/2025 CREAT 0.52 05/17/2025 GLUC 106 (H) 05/17/2025 Lab Results Component Value Date CALCIUM 9.0 05/17/2025 MG 1.9 05/17/2025 PHOS 2.7 05/17/2025 Lab Results Component Value Date AST 21 05/17/2025 ALT 10 05/17/2025 ALKPHOS 85 05/17/2025 BILITOT 1.0 05/17/2025 BILIDIR 0.2 05/17/2025 ALBUMIN 3.8 05/17/2025 PROT 6.9 05/17/2025 No results found for: AMYLASE , LIPASE Lab Results Component Value Date PTT 37 (H) 05/18/2025 LABPROT 25.7 (H) 05/18/2025 INR 2.2 05/18/2025 Imaging Studies XR Abdomen 1 view-Portable Result Date: 05/18/2025 EXAMINATION: XR ABDOMEN KUB CLINICAL INDICATION: S/p NGT insertion COMPARISON: CT abdomen and pelvis 05/17/2025 TECHNIQUE: AP view of the abdomen. FINDINGS: Enteric tube, with the tip and sidehole over the expected location of GE junction/gastric fundus. Multiple air distended loops of small and large bowel are identified, with small bowel, measuring up to 5.2 cm. Visualized lung bases are clear.No acute osseous abnormality. 1. Enteric tube, with the tip and sidehole over the expected location of GE junction/gastric fundus. 2. Multiple air distended loops of small and large bowel, with small bowel measuring up to 5.2 cm.Findings may represent ileus or partial small bowel obstruction. CT Abdomen Archive for Reference Only Result Date: 05/17/2025 This study has been auto finalized and does not contain a result. CT Abdomen Archive for Reference Only Result Date: 05/17/2025 This study has been auto finalized and does not contain a result. Electronically Signed Mandeep Randhawa DO Orthopedic Surgery PGY-1 05/19/2025 5:34 AM * Keerthi Pratt PA-C - 05/18/2025 9:11 AM EDT NGT placement: Patient evaluated at bedside and agreed for NGT placement. Patient currently admitted with LBO in setting of metastatic rectal cancer, with nausea, no vomiting. Plan for diverting ostomy creation tomorrow, 05/19. An 18Fr nasogastric tube was adequately lubricated. The patient was seated up and instructed to tuck chin to chest. The tube was advanced in the left nostril until resistance was met. The patient wasasked to take sips and the tube was briskly advanced to 65 cm. Bilious output was observed and the tube was connected to suction. 50 cc initially drained. The tube was taped in place. The patient tolerated procedure well. - KUB ordered to confirm placement - chloraseptic spray ordered for comfort - NPO with IV fluids while NG tube in place Keerthi Pratt PA-C General Surgery 05/18/2025 9:12 AM * Rose Mary Healy - 05/18/2025 8:49 AM EDT 05/18/25 0841 General Information Admission Type inpatient Arrived From Hospital Required Notices Provided ([facility]) Initial Information Source of Information patient;health record Living Environment People in Home spouse Name(s) of People in Home Syeda Current Living Arrangements home Primary Care Provided by self;spouse/significant other Provides Primary Care For no one Family Caregiver if Needed spouse Quality of Family Relationships supportive;helpful;involved Able to Return to Prior Arrangements yes Relationship/Environment Primary Source of Support/Comfort spouse Name of Support/Comfort Primary Source Syeda Resource/Environmental Concerns Resource/Environmental Concerns home accessibility Home Accessibility Concerns stairs to enter home;stairs to access bedroom or bathroom Disability/Function Hearing Difficulty or Deaf no Visual Difficulty or Blind no Difficulty Concentrating, Remembering or Making Decisions no Communication Difficulty no Eating/Swallowing Difficulty no Walking or Climbing Stairs Difficulty yes Walking or Climbing Stairs ambulation difficulty, requires equipment Mobility Management Rollator after chemo Dressing/Bathing Difficulty yes Dressing/Bathing bathing difficulty, requires equipment Dressing/Bathing Management Bath bench Difficulty Managing Errands Independently yes Errands Management Spouse drives Equipment Currently Used at Home rollator;walker, rolling;tub bench Change in Functional Status Since Onset of Current Illness/Injury yes Functional Status Usual Activity Tolerance good Current Activity Tolerance moderate Functional Status Comments Unable to eat Functional Status, IADL Medications independent;assistive person Meal Preparation assistive person Housekeeping assistive person Laundry assistive person Shopping assistive person Living Arrangement Living arrangement: Spouse Type of residence: Private residence Housing Stability In the last 12 months, was there a time when you were not able to pay the mortgage or rent on time?N In the past 12 months, how many times have you moved where you were living? 0 At any time in the past 12 months, were you homeless or living in a fpc (including now)? N Food Insecurity Within the past 12 months, you worried that your food would run out before you got the money to buymore. Never true Within the past 12 months, the food you bought just didn't last and you didn't have money to get more. Never true Transportation Needs Do you currently have transportation available to you? Yes If yes, what transportation do you currently have available to you? Family/Friend In the past 12 months, has lack of transportation kept you from medical appointments or from getting medications? no In the past 12 months, has lack of transportation kept you from meetings, work, or from getting things needed for daily living? No Utilities In the past 12 months has the [employer], gas, oil, or water [employer] threatened to shut off services in your home? No Interpersonal Safety Within the last year, have you been humiliated or emotionally abused in other ways by anyone? No Within the last year, have you been kicked, hit, slapped, or otherwise physically hurt by anyone? No Discharge Needs Assessment Readmission Within the Last 30 Days no previous admission in last 30 days Concerns to be Addressed discharge planning Patient/Family Anticipates Transition to home with family;home with help/services Patient/Family Anticipated Services at Transition pediatric medical assistant Transportation Anticipated family or friend will provide Outpatient/Agency/Support Group Needs infusion therapy, outpatient Current Discharge Risk chronically ill;physical impairment Discharge Coordination/Tasks Status Post Discharge Needs/Treatments Nursing Home Home Visit;Chemotherapy * Felipe Limon MD - 05/18/2025 8:12 AM EDT Progress Note Hospital Day: 2, Admit Date: 05/17/2025 Assessment and plan: Mr. Coreas is a 60 y.o. 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 HTN (hypertension) Currently normotensive Holding home metoprolol 50 mg and amlodipine 5 mg History of pulmonary embolus (PE) Holding home Eliquis Ordered IV heparin, given INR above 2 not started at this time GERD (gastroesophageal reflux disease) Continue IV Protonix 40 mg daily Anxiety Holding home lamotrigine 300 mg, risperidone 1 mg, clonazepam 1 mg as patient currently n.p.o., I have updated the Patient and Spouse and addressed their concerns. Barriers to patient transition/ medical necessity requiring continued inpatient stay plan for diverting colostomy tomorrow 05/19 General Surgery Quality metrics: # Telemetry: No Active Telemetry Order # Diet: Diet NPO # Code status: Full Code # Carlton catheter: No Active Urethral Catheter (Carlton) Order # Central lines: # Expected Date of Discharge: 05/19/2025 {Click to update KRISTA: [id number]} VTE Time Out IMPROVE SCORE: 7 (05/17/2025 11:40 PM) Interpretation - High Risk Chemical Prophylaxis apixaban (ELIQUIS) tablet 5 mg Oral Every 12 hours scheduled Apixaban 5 mg Last dose 05/18/2025 12:30 AM Mechanical Prophylaxis SCDs are ordered - Bilateral (Knee High) Subjective: Chief complaint Chief Complaint Patient presents with Abdominal Pain Patient is being seen for acute medical problems and follow-up for chronic medical issues as mentioned in the assessment and plan above. # Event overnight: No acute events reported Mr. Coreas was seen earlier today. Patient lying comfortably in bed, no acute distress and hemodynamically stable. Patient present by bedside. Patient had no complaints or concerns at this time. All questions answered Objective: Last 3 Filed Values 05/18/25 0449 05/18/25 0617 05/18/25 0700 BP: (S) (!) 144/72 132/74 126/74 Pulse: 92 84 84 Resp: 18 18 18 Temp: 97 ??F (36.1 ??C) 97.1 ??F (36.2 ??C) 98 ??F (36.7 ??C) TempSrc: Temporal Temporal SpO2: 98% 95% 98% SOFA Scores 05/18/25 06 SOFA Score : 0 SpO2 Min: 95 % Max: 99 % O2 Device: room air (none) Weight: on admission: 87.6 kg (193 lb 2 oz), (05/18/2025 7:00 AM) Recent: 87.6 kg (193 lb 2 oz), (05/18/2025 7:00 AM) Last Documented Bowel Movement - No intake or output data in the 24 hours ending 05/18/25 0812 Physical Exam Constitutional - alert. ill appearing. not in acute distress. Head - normocephalic and atraumatic. Nose - NG tube in place Neck - supple and normal range of motion. Cardiovascular - normal rate and regular rhythm. Pulmonary - breath sounds present bilaterally. no wheezing and no crackles. Abdominal - soft. distended and tenderness +. Musculoskeletal - no RLE edema and no LLE edema. Skin - warm. Neurological - alert and oriented x 4. Scheduled medications 05/18/25 8:12 AM As needed medications: amLODIPine, 5 mg, Oral, Nightly apixaban, 5 mg, Oral, Q12H RACHEL clonazePAM, 1 mg, Oral, Nightly lamoTRIgine, 300 mg, Oral, Daily methylphenidate, 18 mg, Oral, Daily metoPROLOL SUCCINATE, 50 mg, Oral, Daily risperiDONE, 1 mg, Oral, Nightly senna-docusate, 2 tablet, Oral, Nightly bisacodyl HYDROmorphone HYDROmorphone HYDROmorphone lactulose naloxone ondansetron Current infusions: lactated ringers, 100 mL/hr, Last Rate: 100 mL/hr (05/18/25 0110) Diagnostic studies: I have reviewed the labs and ordered new labs if needed. Recent Labs 05/17/252244 WBC 2.2* HGB 11.3* HCT 33.8* PLT 173 Recent Labs 05/17/255 NA 132* K 3.5 CO2 24 CL 95* BUN 12 CREAT 0.52 CALCIUM 9.0 MG 1.9 PHOS 2.7 BILITOT 1.0 ALKPHOS 85 AST 21 ALT 10 ALBUMIN 3.8 Recent Labs 05/17/252244 INR 2.2 No results for input(s): SARSCOV2 , INFLAV , INFLBV in the last 72 hours. Blood Culture Results Since Admission No results found for this visit on 05/17/25. Urine Culture Results Since Admission No results found for this visit on 05/17/25. Imaging Studies: No images to review. This report was generated using Pikum dictation software. Although every attempt has been made by the provider to proofread this document, occasional misspellings and typographical errors may still be present. Of note, some information is being carried forward from prior records for informational purposes only and is being cited so that efficiency, safety, and quality of this patient's care is not compromised. Felipe Limon MD documented in this encounter H&P Notes * Nehemias Mendoza MD - 05/17/2025 11:54 PM EDT Images from the original note were not included. HOSPITAL MEDICINE ADMISSION HISTORY & PHYSICAL Admit Date: 05/17/2025 9:59 PM Patient's Primary Care Physician: UNKNOWN ASSESSMENT & PLAN 60-year-old male with history of GERD, HTN, ADHD, stage IV rectosigmoid cancer with mets to liver, kidney and lungs SP rectosigmoid stent on palliative chemotherapy, either failure to thrive. Sent from [facility] for concern for large bowel obstruction in the setting of colonic stent malfunctioning Assessment & Plan Large bowel obstruction (HCC) Rectal cancer metastasized to liver (HCC) CT at [facility] significant for small and large bowel distention and concern for obstructiverectal stent and hepatic mets and gallbladder hydrops Keep the patient n.p.o. Start patient on IV fluid GI consulted by the ED follow recs ADHD Will continue home dose methylphenidate 10, not available in the hospital I will order 18 HTN (hypertension) Continue amlodipine 5 History of pulmonary embolus (PE) Will continue apixaban GERD (gastroesophageal reflux disease) Will continue pantoprazole, Home regimen omeprazole 20 QUALITY METRICS # Telemetry: No Active Telemetry Order # Diet: Diet NPO # Code status: Full Code # HCP/Decision maker: Patient Discussed patient's condition,further plan and management with patient and agreed with it. # Carlton catheter: No Active Urethral Catheter (Carlton) Order # Central lines: # Expected Date of Discharge: 05/19/2025 VTE Time Out IMPROVE SCORE: 7 (05/17/2025 11:40 PM) Interpretation - High Risk Chemical Prophylaxis apixaban (ELIQUIS) tablet 5 mg Oral Every 12 hours scheduled Mechanical Prophylaxis SCDs are ordered - Bilateral (Knee High) SUBJECTIVE Chief Complaint: Chief Complaint Patient presents with Abdominal Pain Subjective 60-year-old male with history of GERD, HTN, ADHD, stage IV rectosigmoid cancer with mets to liver, kidney and lungs SP rectosigmoid stent on palliative chemotherapy, failure to thrive. Patient was evaluated by oncology today, report at the office worsening abdominal pain nausea and vomiting and labs were significant for low potassium. Patient has a CT scan showing a rectal stent likely obstructed with fluid and gas distended in the small and large bowel and likely mets to liver gallbladder hydrops. During my conversation with the patient, he said that his last bowel movement was about 10 hours ago. Was liquidy. Report increased abdominal pain that get better with him home oxycodone. On presentation vital stable CBC significant for WBC 2.2, hemoglobin 11.3 at baseline, platelet 173 CMP normal except sodium in 132 Patient will be admitted to be evaluated by GI for stent functioning REVIEW OF SYSTEMS ROS PAST HISTORY Past Medical History: Diagnosis Date ADHD GERD (gastroesophageal reflux disease) History of pulmonary embolus (PE) Hypertension Rectal cancer (HCC) No past surgical history on file. No family history on file. Social History[1] ALLERGIES Allergies[2] HOME MEDICATIONS Prior to Admission medications Not on File OBJECTIVE Patient Vitals for the past 8 hrs: BP Temp Temp src Pulse Resp SpO2 05/17/25 2212 -- 98.3 ??F (36.8 ??C) Tympanic 85 18 99 % 05/17/252156 130/80 97.4 ??F (36.3 ??C) Tympanic 80 16 98 % No intake or output data in the 24 hours ending 05/17/25 8792 Physical Exam Constitutional: Appearance: He is ill-appearing, toxic-appearing and diaphoretic. HENT: Head: Normocephalic and atraumatic. Nose: Nose normal. Eyes: Pupils: Pupils are equal, round, and reactive to light. Cardiovascular: Rate and Rhythm: Normal rate and regular rhythm. Pulmonary: Effort: Pulmonary effort is normal. Breath sounds: Normal breath sounds. Abdominal: General: Abdomen is flat. Bowel sounds are normal. There is distension. Palpations: Abdomen is soft. Tenderness: There is abdominal tenderness. There is no guarding or rebound. Musculoskeletal: General: Normal range of motion. Skin: General: Skin is warm. Neurological: General: No focal deficit present. Mental Status: He is alert and oriented to person, place, and time. Mental status is at baseline. Psychiatric: Mood and Affect: Mood normal. Behavior: Behavior normal. Relevant data reviewed Results from last 7 days Lab Units 05/17/25 2245 WHITE BLOOD CELL COUNT Thou/uL 2.2* HEMOGLOBIN g/dL 11.3* HEMATOCRIT % 33.8* PLATELET COUNT Thou/uL 173 Results from last 7 days Lab Units 05/17/25 2245 SODIUM mmol/L 132* POTASSIUM mmol/L 3.5 CHLORIDE mmol/L 95* CO2 mmol/L 24 BUN mg/dL 12 CREATININE mg/dL 0.52 CALCIUM mg/dL 9.0 GLUCOSE mg/dL 106* EGFR >90 ALBUMIN g/dL 3.8 PROTEIN, TOTAL g/dL 6.9 BILIRUBIN TOTAL mg/dL 1.0 ALK PHOS U/L 85 ALT U/L 10 AST U/L 21 Lab Results Component Value Date ALT 10 05/17/2025 AST 21 05/17/2025 ALKPHOS 85 05/17/2025 BILITOT 1.0 05/17/2025 Results from last 7 days Lab Units 05/17/255 PROTHROMBIN TIME (PT) seconds 25.0* INR 2.2 Sign Nehemias Mendoza MD 05/17/2025 11:54 PM [1] [2] No Known Allergies documented in this encounter Consult Notes * Kierra Timmons RN - 05/29/2025 1:36 PM EST [facility] Ostomy [facility] Consult Visit Date: 05/29/2025 Patient Name: Riana Coreas Date of : 1965 Reason for Consult: follow up Ostomy History: Pt is a 60 year old with history of rectal cancer with mets to liver, kidney, lung on palliative chem, he is s/p lap loop colostomy creation. Pt seen today for continued ostomy education and pouch change prior to discharge home with services. Past Medical History: Diagnosis Date ADHD GERD (gastroesophageal reflux disease) History of pulmonary embolus (PE) Hypertension Rectal cancer (HCC) Pertinent Labs: Albumin Date Value Ref Range Status 05/22/2025 3.1 (L) 3.4 - 4.8 g/dL Final No results found for: TRANSFERRIN No results found for: PREALBUMIN Ostomy Assessment: Colostomy (Adult) 05/19/25 1044 loop colostomy (Active) Stoma Appearance pink;moist;bridge in place 05/29/25 1338 Peristomal Skin ulcerated 05/29/25 1338 Appliance 1-piece;changed 05/29/25 1338 Accessories/Skin Care wafer barrier over peristomal skin 05/29/25 1338 Stoma Function flatus;stool 05/29/25 1338 Tolerance no signs/symptoms of discomfort 05/29/25 1338 Stool Output (mL) 0 05/29/25 0720 Number of days: 10 Ostomy Team Summary Assessment: Pt seen for pouch change prior to discharge home, we gathered all supplies, pt assisted in removing pouch using adhesive remover, skin cleansed with warm water, stoma measured and pt cut wafer to size, noted that bridge sutured in place pulling and causing wounding, provider notified. Pt assisted in placing new pouch and holding in place. Provider decided to removebridge prior to discharge. Provider at bedside, pouch removed and provider removed bridge, skin cleansed with warm water again, barrier spray applied, new pouch Convatec [id number] one piece cut to fit applied and held in place. Pt tolerated well, all questions answered. Ostomy Team Plan: pt discharged today, pt has all ostomy supplies at home as they were taken home last week, extra supplies in room sent on discharge Recommendations: Ostomy Pouch Change Empty pouch when 1/3-1/2 full Change pouch every 3-5 days Remove pouch with adhesive remover Cleanse skin with warm water only Apply barrier spray Measure stoma and cut wafer to size of stoma, [facility] [id number] Hold hand in place for 3 minutes Sign: Kierra Timmons RN, CWOCN 05/29/2025 1:39 PM * Danisha Hernandez RN - 05/28/2025 1:37 PM EST [facility] Ostomy [facility] Consult Visit Date: 05/28/2025 Patient Name: Riana Coreas Date of : 1965 Reason for Consult: follow up Ostomy History: Pt is a 60 year old with a history of rectal cancer with mets to liver, kidney, lung on palliative chemo, he is s/p lap loop colostomy creation pt seen today for continued ostomy education. Pertinent Labs: Albumin Date Value Ref Range Status 05/22/2025 3.1 (L) 3.4 - 4.8 g/dL Final Ostomy Assessment: Colostomy (Adult) 05/19/25 1044 loop colostomy (Active) Stoma Appearance moist;pink;bridge in place 05/28/25 1200 Peristomal Skin unable to assess, covered by appliance 05/28/25 1200 Appliance 1-piece;open end;intact;no leakage 05/28/25 1200 Accessories/Skin Care wafer barrier over peristomal skin 05/28/25 1200 Stoma Function flatus;stool 05/28/25 1200 Tolerance no signs/symptoms of discomfort 05/28/25 1200 Number of days: 9 Ostomy Team Summary Assessment: Current pouch in place without signs of leakage, wear time 3 days. Patient states he is hopeful to be discharged tomorrow. Bridge in place, plan to discharge with bridge. Patient agreeable to pouch change tomorrow prior to discharge, will be at bedside then. All questions answered. Ostomy Team Plan: Ostomy team will follow-up for pouch change tomorrow prior to discharge. Recommendations: OSTOMY CARE - Use adhesive remover to loosen tape border. - Clean skin with warm water and washcloth. (Do not use soaps, alcohol, or baby wipes around the stoma) - Prep surrounding skin with barrier spray, air dry. (If peristomal skin red apply stoma powder first and dust off excess, then apply barrier spray. Letdry.) - Measure stoma and cut wafer to exact size. - Apply new pouch, Convatec (#[id number]) flat, one piece cut to fit. - Hold in place for 2-3 mins using warmth of hands to secure wafer - Empty pouch when 1/3-1/2 full. Apply new pouching system every 3-5 days. Sign: Danisha Hernandez RN, CWOCN 05/28/2025 1:37 PM * Kierra Timmons RN - 05/25/2025 11:58 AM EDT [facility] Ostomy [facility] Consult Visit Date: 05/25/2025 Patient Name: Riana Coreas Date of : 1965 Reason for Consult: follow up Ostomy History: Pt is a 60 year old with a history of rectal cancer with mets to liver, kidney, lung on palliative chemo, he is s/p lap loop colostomy creation pt seen today for continued ostomy education. Pertinent Labs: Albumin Date Value Ref Range Status 05/22/2025 3.1 (L) 3.4 - 4.8 g/dL Final No results found for: TRANSFERRIN No results found for: PREALBUMIN Ostomy Assessment: Colostomy (Adult) 05/19/25 1044 loop colostomy (Active) Stoma Appearance pink;moist 05/25/25 1157 Peristomal Skin dry;intact 05/25/25 1157 Appliance 1-piece;changed 05/25/25 1157 Accessories/Skin Care wafer barrier over peristomal skin 05/25/25 1157 Stoma Function flatus;stool 05/25/25 1157 Tolerance no signs/symptoms of discomfort 05/25/25 1157 Stool Output (mL) 0 05/25/25 0816 Number of days: 6 Ostomy Team Summary Assessment: Pouch changed yesterday and then I&D to abdomen, pouch edge lifted for access, we decided to change pouch again today. Pouch with large amount of flatus, pt assisted in releasing gas. Pouch removed with adhesive remover and skin cleansed with warm water, stoma with bridge in place, measured and wafer cut to size, Convatec [id number] wafer opening cut to size of stoma, barrier spray applied and new pouch placed, pt assisted with removing backing and holding in place for 3 minutes, pt was able to open and close pouch closure. Per patient his took all ostomy supplies and education home, some pouches and accessories brought to the bedside. Pt encouraged to continue to participate in ostomy care. Ostomy Team Plan: follow up on Wednesday Recommendations: OSTOMY CARE - Use adhesive remover to loosen tape border. - Clean skin with warm water and washcloth. (Do not use soaps, alcohol, or baby wipes around the stoma) - Prep surrounding skin with barrier spray, air dry. (If peristomal skin red apply stoma powder first and dust off excess, then apply barrier spray. Letdry.) - Measure stoma and cut wafer to exact size. - Apply new pouch, Convate (#[id number]) flat, one piece cut to fit. - Hold in place for 2-3 mins using warmth of hands to secure wafer - Empty pouch when 1/3-1/2 full. Apply new pouching system every 3-5 days. Sign: Kierra Timmons RN, CWOCN 05/25/2025 11:58 AM * Danisha Hernandez RN - 05/24/2025 10:21 AM EDT [facility] Ostomy [facility] Consult Visit Date: 05/24/2025 Patient Name: Riana Coreas Date of : 1965 Reason for Consult: follow up Ostomy History: 60 yo male with history of rectal cancer with mets to liver, kidney, lung on palliative chemo. He is POD #5 s/p laparoscopic loop colostomy creation Pertinent Labs: Albumin Date Value Ref Range Status 05/22/2025 3.1 (L) 3.4 - 4.8 g/dL Final Ostomy Assessment: Colostomy (Adult) 05/19/25 1044 loop colostomy (Active) Stoma Appearance moist;red;protruding above skin level;bridge in place 05/24/25 1000 Peristomal Skin intact;suture(s) 05/24/25 1000 Appliance changed;1-piece;open end;intact;no leakage;per protocol/policy 05/24/25 1000 Accessories/Skin Care cleansed with water;skin sealant;wafer barrier over peristomal skin 05/24/25 1000 Stoma Function flatus;stool 05/24/25 1000 Tolerance no signs/symptoms of discomfort;assisted with appliance change;assisted with stoma care 05/24/25 1000 Stool Output (mL) 30 05/24/25 1000 Number of days: 4 Ostomy Team Summary Assessment: Ostomy appliance intact, wear time 3 days. Spouse at bedside for ostomy teaching. Plan for pouch change today prior to discharge. Per surgery team, bridge sutured in place, to remain until follow-up. Patient able to verbalize supplies needed for pouch change. Patient able to verbalize needing to change pouch every 3-5 days, emptying pouch when 1/3-1/2 full and cleansing skin with water only. Patient and spouse interested in disposable 2 piece pouches for home. Stoma currently with bridge in place, size too large for two piece disposable that we have available. Patient given box of Ashley cut to fit 70mm wafers and drainable pouches for future use. We talked about different types andbrands of pouches available. Patient agreeable to use one piece [id number] cut to fit one piece pouch while bridge inplace. Riana agreed to guided pouch change. He chose to perform pouch change while lying in bed. He removed existing ostomy appliance with adhesive remover. He performed stoma care and verbalized cleansing skin with warm water only. Stoma moist, red, protruding above skin level with bridge sutured in place. Peristomal skin clean dry and intact. He measured stoma about 64mm. I traced template from last pouch change and Riana cut pouch to fit. I applied barrier spray to peristomal skin and assisted Riana with new pouch application due to bridge. Riana held pouch in place for 5 minutes. at bedsideobserved pouch change and asked appropriate questions. Supply ordering reviewed with patient. All questions answered. Ostomy Team Plan: Patient expected to be discharged today. Patient states he has follow-up next week with surgery team in office for bridge removal. Recommendations: OSTOMY CARE - Use adhesive remover to loosen tape border. - Clean skin with warm water and washcloth. (Do not use soaps, alcohol, or baby wipes around the stoma) - Prep surrounding skin with barrier spray, air dry. (If peristomal skin red apply stoma powder first and dust off excess, then apply barrier spray. Letdry.) - Measure stoma and cut wafer to exact size. - Apply new pouch, Convatec (#[id number]) flat, one piece cut to fit. - Hold in place for 2-3 mins using warmth of hands to secure wafer - Empty pouch when 1/3-1/2 full. Apply new pouching system every 3-5 days. Sign: Danisha Hernandez RN, CWOCN 05/24/2025 10:21 AM * Rupal Nolen RN - 05/23/2025 4:03 PM EDT [facility] Consult Visit Date: 05/23/2025 Patient Name: Riana Coreas Date of : 1965 Reason for Consult: follow up Ostomy History: 60 yo male with history of rectal cancer with mets to liver, kidney, lung on palliative chemo. He is POD #4 s/p laparoscopic loop colostomy creation Pertinent Labs: Albumin Date Value Ref Range Status 05/22/2025 3.1 (L) 3.4 - 4.8 g/dL Final No results found for: TRANSFERRIN No results found for: PREALBUMIN Ostomy Assessment: Colostomy (Adult) 05/19/25 1044 loop colostomy (Active) Stoma Appearance round;moist;bridge in place;red;protruding above skin level 05/23/25 154 Peristomal Skin unable to assess, covered by appliance 05/23/25 154 Appliance 1-piece;open end;intact;no leakage 05/23/25 154 Accessories/Skin Care wafer barrier over peristomal skin 05/23/25 1545 Stoma Function flatus;stool 05/23/25 154 Tolerance no signs/symptoms of discomfort 05/23/25 154 Stool Output (mL) 175 05/23/25 1545 Number of days: 4 Ostomy Team Summary Assessment: Pt practiced emptying pouch. Spouse present for ostomy education. Reviewed how to set up supplies and steps to pouch change. Using a mock stoma, demonstrated how to remove pouch, cleanse peristomal skin, apply barrier spray. Pt measured stoma and cut opening to wafer. He practiced applying over mock stoma. Questions re: nutrition, ordering. Ostomy Team Plan: will change pouch tomorrow after provider removes bridge Recommendations: OSTOMY CARE - Use adhesive remover to loosen tape border. - Clean skin with warm water and washcloth. (Do not use soaps, alcohol, or baby wipes around the stoma) - Prep surrounding skin with barrier spray, air dry. (If peristomal skin red apply stoma powder first and dust off excess, then apply barrier spray. Letdry.) - Measure stoma and cut wafer to exact size. - Apply new pouch, [facility][id number][facility] flat, one piece cut to fit. - Hold in place for 2-3 mins using warmth of hands to secure wafer - Empty pouch when 1/3-1/2 full. Apply new pouching system every 3-5 days. Sign: Rupal Nolen RN, CWON 05/23/2025 4:03 PM * Rupal Nolen RN - 05/22/2025 6:15 PM EDT [facility] Ostomy [facility] Consult Visit Date: 05/22/2025 Patient Name: Riana Coreas Date of : 1965 Reason for Consult: follow up Ostomy History: 60 yo male with history of rectal cancer with mets to liver, kidney, lung on palliative chemo. He is POD #3 s/p laparoscopic loop colostomy creation Pertinent Labs: Albumin Date Value Ref Range Status 05/22/2025 3.1 (L) 3.4 - 4.8 g/dL Final No results found for: TRANSFERRIN No results found for: PREALBUMIN Ostomy Assessment: Colostomy (Adult) 05/19/25 1044 loop colostomy (Active) Stoma Appearance round;moist;red;protruding above skin level 05/22/25 170 Peristomal Skin unable to assess, covered by appliance 05/22/25 170 Appliance 1-piece;open end;intact;no leakage 05/22/251699 Accessories/Skin Care wafer barrier over peristomal skin 05/22/251699 Stoma Function flatus;stool 05/22/251699 Tolerance no signs/symptoms of discomfort 05/22/251699 Stool Output (mL) 125 05/22/25 1700 Number of days: 3 Ostomy Team Summary Assessment: Pouch changed yesterday with pt and spouse and remains intact. He practiced emptying pouch, rinsingand cleansing end. Able to secure velcro ended pouch and did well as yesterday he was having difficulty. He was shown a 2 piece disposable pouching system. Demonstrated how to instill deodorizing/lubricating drops. Reviewed emptying when pouch 1/3-1/2 full. Reviewed changing appliance every 3-5 days. Reviewed how to order supplies with spouse and obtain samples Ostomy Team Plan: will continue ostomy education tomorrow Recommendations: OSTOMY CARE - Use adhesive remover to loosen tape border. - Clean skin with warm water and washcloth. (Do not use soaps, alcohol, or baby wipes around the stoma) - Prep surrounding skin with barrier spray, air dry. (If peristomal skin red apply stoma powder first and dust off excess, then apply barrier spray. Letdry.) - Measure stoma and cut wafer to exact size. - [id number], one piece cut to fit. - Hold in place for 2-3 mins using warmth of hands to secure wafer - Empty pouch when 1/3-1/2 full. Apply new pouching system every 3-5 days. Sign: Rupal Nolen RN, CWON 05/22/2025 6:15 PM * Rupal Nolen RN - 05/21/2025 5:29 PM EDT [facility] Ostomy Care Consult Visit Date: 05/21/2025 Patient Name: Riana Coreas Date of : 1965 Reason for Consult: follow up Ostomy History: 60 yo male with history of rectal cancer with mets to liver, kidney, lung on palliative chemo. He is POD #2 s/p laparoscopic loop colostomy creation Pertinent Labs: Albumin Date Value Ref Range Status 05/17/2025 3.8 3.4 - 4.8 g/dL Final No results found for: TRANSFERRIN No results found for: PREALBUMIN Ostomy Assessment: Colostomy (Adult) 05/19/25 1044 loop colostomy (Active) Stoma Appearance round;swollen;moist;red;protruding above skin level;bridge in place 05/21/251656 Peristomal Skin intact 05/21/251656 Appliance 1-piece;open end;intact;no leakage;changed;per protocol/policy 05/21/251656 Accessories/Skin Care barrier substance over peristomal skin;cleansed with water;skin barrier ring;wafer barrier over peristomal skin 05/21/25 165 Stoma Function flatus;stool 05/21/257 Tolerance no signs/symptoms of discomfort 05/21/25 1657 Stool Output (mL) 125 05/21/25 1657 Number of days: 2 Ostomy Team Summary Assessment: Pt and spouse able to look at stoma. Briefly reviewed colostomy creation rationale for bridge usingvisual. Reviewed emptying when pouch 1/3-1/2 full. Demonstrated how to empty, rinse, cleanse end and secure end. Pt practiced with velcro closure. Pouch changed today. Reviewed how to set up suppliesand steps to pouch change. Demonstrated how to remove, cleanse peristomal skin, dry and apply barrier spray. Stoma measures 1 3/4 x 2 1/2 . Shown how to cut opening of a Convatec [id number] and apply Saritha then pouch over stoma. Reviewed folder and starter kit Ostomy Team Plan: will continue ostomy education tomorrow Recommendations: OSTOMY CARE - Use adhesive remover to loosen tape border. - Clean skin with warm water and washcloth. (Do not use soaps, alcohol, or baby wipes around the stoma) - Prep surrounding skin with barrier spray, air dry. (If peristomal skin red apply stoma powder first and dust off excess, then apply barrier spray. Letdry.) - Measure stoma and cut wafer to exact size. - Apply Saritha - Apply new pouch, Convate (#[id number]) flat, one piece cut to fit. - Hold in place for 2-3 mins using warmth of hands to secure wafer - Empty pouch when 1/3-1/2 full. Apply new pouching system every 3-5 days. Sign: Rupal Nolen RN, CWON 05/21/2025 5:29 PM * Aki Gomez, STUDENT - 05/21/2025 11:22 AM EDTAssociated Order(s): IP CONSULT TO NUTRITION SERVICES [facility] Nutrition Note Visit Type: initial assessment Reason for Dietitian Visit: consult, education, at nutrition risk. Reason for Admission: Large bowel obstruction (HCC) Pertinent Medical History: HTN, GERD, Rectal Cancer metastasized to the liver Nutrition Diagnosis: Clinical: Malnutrition related to Chronic condition and chemotherapy as evidenced by Severe fat depletion(bicep/tricep fat pads) and severe muscle depletion (quadriceps and gastrocnemius) Diagnosis Status: (new dx). Malnutrition Reason: malnutrition in the context of chronic illness Malnutrition Severity: severe malnutrition Clinical Characteristics: muscle mass loss, body fat loss Body Fat Loss: severe Muscle Mass Loss: severe Interventions/Recommendations: Food & Nutrient Delivery: Continue CLD and advance to low fiber diet per team discretion ONS:Ensure clear apple BID and gellatein once daily Monitor ONS Intake and Fluids per I/Os Monitor GI symptoms and colostomy output Monitor and replete electrolytes PRN Monitor skin integrity Trend weights weekly Nutrition Education/Counseling: Learner: patient Readiness: acceptance Method: Handout Explanation Topics: Increased Protein Low Fiber, Colostomy, Oral Nutrition Supplement Use and Small Frequent Meals Response: demonstrated understanding Comprehension: Excellent Coordination of Nutrition Care: Collaboration with RD and Malnutrition diagnosis added to the Problem List Nutrition Plan for Discharge/Transfer: Low fiber, colostomy diet Nutrition Assessment: Pt admitted d/t large bowel obstruction and colonic stent malfunctioning. Underwent loop colostomy and is currently CLD diet. RD consulted for colostomy education and unintended wt loss. Pt acceptingof this writers interview. Pt reported poor appetite and nausea d/t chemotherapy and abdominal painfrom colostomy procedure. Pt had not yet tried CLD but was open to ensure clear and gellatein. Pt also informed of diet advancement to full liquids next. Pt was accepting of Ensure enlive chocolate TID when diet advances. Pt reported muscle and fat wasting and this brief writer performed NFPE. Pt met ASPEN guidelines for malnutrition d/t confirmed muscle and fat wasting. Pt was accepting and understanding of low fiber and colostomy education. Will follow per plan. Typical Food & Fluid Intake: Normal diet before chemotherapy. Appetite poor from chemo, mostly liquids like broth and ensure. Factors Affecting Nutritional Intake: appetite, altered gastrointestinal function, nausea Food Related Allergies: NKFA Cultural/Ethnic Preferences: None noted/reported. Food Insecurity Concerns: Never true Weight: Wt Readings from Last 1 Encounters: 05/18/25 87.6 kg (193 lb 2 oz) Weights (last 20 days) Date/Time Weight Scale 05/18/25 0700 87.6 kg (193 lb 2 oz) standing Wt Readings from Last 20 Encounters: 05/18/25 87.6 kg (193 lb 2 oz) Pt reports his UBW has been around 193lbs for a year or two. Reports that in 9006-2820 he lost 115lbs unintentionally d/t cancer. Nutrition Physical Findings: Physical Appearance: loss of muscle mass, loss of subcutaneous fat Muscle Wasting: Moderate Depletion: pectoralis major, deltoid, temporalis, trapezius, interosseous Severe Depletion: quadriceps, gastrocnemius Adipose Wasting: Moderate Depletion: orbital fat pad, buccal fat pad Severe Depletion: tricep/bicep fat pad Gastrointestinal: colostomy (Colostomy output 05/20 - small amounts) Wound Documentation Reviewed: yes Labs: Na 134, K 3.1, Phos 2.0, BUN 5, Cr 0.37, Ca 8.6 (no alb to correct) Diagnostics: XRay 05/18 Multiple air distended loops of small and large bowel, with small bowel measuring up to 5.2 cm. Findings may represent ileus or partial small bowel obstruction. Medications: PPI, heparin, KCl IV, Lactated Ringers IV Estimated Daily Energy and Protein Needs: Energy Needs: 2190 - 2628 Kcals/day (25-30 kcal/kg) based on 87.6 kg (193 lb 2 oz) Protein Needs: 123 - 158 gm, (1.4 - 1.8g/kg) based on 87.6 kg (193 lb 2 oz) Fluids: 2500ml based on MAINTENANCE JOURNEYMAN Method Current Diet: Diet Clear Liquid Patient to receive supplements: specific meal/ supplement; Supplements with: Lunch; Order: Ensure Clear, Apple, 8 oz; Supplements with: Dinner; Order: Ensure Clear, Apple, 8 oz Patient to receive supplements: specific meal/ supplement; Supplements with: Dinner; Order: Gelatein Plus, Lemon Intake Compared to Estimated Needs: Energy Intake: not meeting needs (Was NPO now CLD) x 4 days Protein Intake: not meeting needs (Was NPO now CLD) x 4 days Fluid Intake: other (see comments) (On IV Fluids) Educational Needs Assessment: Assessed patient's learning needs. Barriers to Education: None noted at this time. Monitoring & Evaluation: Goals to be Achieved by Next Assessment: - Intake meeting at least 50% of estimated needs when advanced to full liquid - Electrolytes WNL - Tolerate diet advancement Monitoring/Evaluation: RD/DTR will monitor and evaluate nutrition plan of care and provide additional interventions and recommendations based on nutrition/clinical status. Sign: Aki Gomez, STUDENT 05/21/2025 4:04 PM Cosigned by Itzel Echevarria RD at 05/21/2025 4:07 PM EDT Associated attestation - Itzel Echevarria RD - 05/21/2025 4:07 PM EDT I have personally reviewed the patient and approve the following documentation. Sign: Itzel Echevarria RD 05/21/2025 4:07 PM * Marcelle Brito RN - 05/20/2025 9:20 AM EDT 60 year old male admitted for large bowel obstruction, now with loop colostomy. Provided educational DVD for him to view with his family. Patient states that he is not hopeful for his future but willview the video with his family. Ostomy Team will follow up and start teaching on Wednesday. * Rupal Nolen RN - 05/18/2025 1:11 PM EDT PERIOPERATIVE OSTOMY MARKING Consult received for diverting colostomy creation scheduled tomorrow for metastatic rectal cancer Anatomical landmarks and firm rectus abdominis muscle located upon palpation in [id number] position. Pt identified belt line. Pt with large abdominal girth. Skin folds identified. Striae noted to mid abdomen. Infraumbilical skin is loose and soft, bulge diminishes when seated Colostomy site maked in supraumbilicus LUQ within pt's line of sight. Sight covered with tegaderm. Spouse came in at end of marking. She will come in on Monday 05/21 to begin ostomy education with pt. * Keerthi Pratt PA-C - 05/18/2025 8:24 AM EDTAssociated Order(s): IP CONSULT TO GENERAL SURGERY General Surgery Consult Note Date of Consult: 05/18/2025 Patient's Primary Care Physician: UNKNOWN Physician Requesting Consult: Dr. Sullivan Reason for Consultation: LBO, rectal CA Consulted Surgical Attending: Dr. Corey Covering Surgical Team: red surgery Name: Riana Coreas Age: 60 y.o. Sex: male Principal Problem: Large bowel obstruction (HCC) (POA: Yes) Active Problems: ADHD (POA: Unknown) HTN (hypertension) (POA: Unknown) History of pulmonary embolus (PE) (POA: Unknown) GERD (gastroesophageal reflux disease) (POA: Unknown) Rectal cancer metastasized to liver (HCC) (POA: Unknown) Resolved Problems: Assessment & Plan Assessment 60 y/o male with pmhx of metastatic rectal cancer here with LBO. On exam, patient is non-toxic appearing. Vitals are stable. He is distended, but non- tender. Tolerated NG tube placement. Plan - plan for OR tomorrow, 05/19 for open diverting ostomy creation - manager data for marking - general surgery team will obtain consent - Keep NPO, IVF - eliquis held, transition to heparin gtt, will need hold prior to OR - NGT-LWS, KUB ordered to confirm placement - replete electrolytes to maintain K > 4, Mg > 2 - transition PO meds to IV - remainder of care per primary team - Discussed with Dr. Corey who agrees with plan Subjective Chief Complaint Abdominal pain, distension History of Present Illness 60 y/o male with pmhx of metastatic rectal cancer who had stent placed 03/20/25 at [place] and is actively undergoing chemotherapy with Avastin and Lonsurf (last infusion of Avastin was 05/15/25), htn, gerd, adhd presents here as a transfer from OSH with LBO. Per patient he has had difficulty tolerating chemotherapy over the past few months and has been hospitalized with similar symptoms recently. He reports he gets distended and nauseous. Per discussion with his Syeda on the phone, he previously underwent 22 rounds of folfox and foliri (last dose mar 14, 2025, ended up in hospital on mar 16 with abdominal distension, n/v). During that hospital admission, he had a stent placed on March 20, 2025 for which the reports he had some relief of his symptoms and was somewhat back to his baseline for the first time in 16 months. He was then recently switched to Avastin and Lonsurf. His last dose of Avastin was 05/15/25 which completed cycle 1.His plan had been for 16 days off and then to start cycle 2 which is scheduled for May 29. Patient was unable to recall chemotherapy regimen but it was confirmed with his . Patient reports after his last dose of chemotherapy, he ended up back in [place] two days ago with distension and nausea. He reports no vomiting. He has had alternating bowel movements of diarrhea and more formed stools. He reports that he continues to pass gas. He denies any fever, chills, chest pain, sob, difficulty breath. He has not had any PO intake in the last 2 days since he went to [place]. At OSH he had imaging concerning for occlusion of his rectal stent with subsequent LBO. Currently, he is admitted to medicine. He is NPO with IVF. He is leukopenic to 2.2. An NG tube was placed for decompression. Anticoagulation: eliquis 5 mg bid (last dose today), switching to heparin gtt Abdominal Surgical History includes: none. Last PO intake: 2 days ago Review of Systems: All system reviewed. Review of Systems Constitutional: Positive for appetite change. Negative for chills, fatigue and fever. HENT: Negative for trouble swallowing. Respiratory: Negative for apnea and shortness of breath. Cardiovascular: Negative for chest pain. Gastrointestinal: Positive for abdominal distention, abdominal pain, diarrhea and nausea. Negative for blood in stool, constipation and vomiting. Genitourinary: Negative for dysuria. Musculoskeletal: Negative for back pain. Skin: Negative for pallor. Neurological: Positive for weakness. Objective Past Medical History: Diagnosis Date ADHD GERD (gastroesophageal reflux disease) History of pulmonary embolus (PE) Hypertension Rectal cancer (HCC) No past surgical history on file. No family history on file. Social History[1] Medications Prior to Admission Medications: Prescriptions Prior to Admission[2] Medication/MAR Report: Medications Scheduled Medication Ordered Dose/Rate, Route, Frequency Last Action amLODIPine (NORVASC) tablet 5 mg 5 mg, PO, Nightly Given, 5 mg at 05/18 003 apixaban (ELIQUIS) tablet 5 mg 5 mg, PO, Q12H RACHEL Given, 5 mg at 05/18 0030 clonazePAM (KlonoPIN) tablet 1 mg 1 mg, PO, Nightly Given, 1 mg at 05/18 003 lamoTRIgine (LaMICtal) tablet 300 mg 300 mg, PO, Daily Ordered methylphenidate (CONCERTA) 24 hr tablet 18 mg 18 mg, PO, Daily Ordered metoPROLOL SUCCINATE (TOPROL-XL) 24 hr tablet 50 mg 50 mg, PO, Daily Ordered risperiDONE (RisperDAL) tablet 1 mg 1 mg, PO, Nightly Given, 1 mg at 05/18 003 senna-docusate (SENNA-S) 8.6-50 MG tablet 2 tablet 2 tablet, PO, Nightly Ordered Continuous Medication Ordered Dose/Rate, Route, Frequency Last Action lactated ringers (LR) infusion 100 mL/hr, IV, Continuous Rate/Dose Change, 100 mL/hr at 05/18 0110 PRN Medication Ordered Dose/Rate, Route, Frequency Last Action bisacodyl (DULCOLAX) suppository 10 mg 10 mg, RE, Daily PRN Ordered HYDROmorphone (DILAUDID) injection 0.5 mg 0.5 mg, IV, Q3H PRN Ordered HYDROmorphone (DILAUDID) injection 0.8 mg 0.8 mg, IV, Q3H PRN Ordered HYDROmorphone (DILAUDID) injection 1 mg 1 mg, IV, Q3H PRN Given, 1 mg at 05/18 0703 lactulose (ENULOSE) 10 gm/15 mL solution 20 g 30 mL, PO, Q4H PRN Ordered naloxone (NARCAN) 0.4 mg/mL injection 0.4 mg 0.4 mg, IV, Q5 Min PRN Ordered ondansetron (ZOFRAN) injection 4 mg 4 mg, IV, Q6H PRN Ordered Allergies[3] Physical Exam Vitals: 05/17/25 2212 05/18/25 0449 05/18/25 0617 05/18/25 0700 BP: (S) (!) 144/72 132/74 126/74 BP Location: Right arm Right arm Right arm Patient Position: Lying Lying Lying Pulse: 85 92 84 84 Resp: 18 18 18 18 Temp: 98.3 ??F (36.8 ??C) 97 ??F (36.1 ??C) 97.1 ??F (36.2 ??C) 98 ??F (36.7 ??C) TempSrc: Tympanic Temporal Temporal SpO2: 99% 98% 95% 98% Weight: 87.6 kg (193 lb 2 oz) Height: 1.88 m (6' 2 ) No intake or output data in the 24 hours ending 05/18/25 0824 Physical exam General: alert and oriented, in no acute distress. Cooperative, responding appropriately. Head: normocephalic, atraumatic Skin: warm and dry. No pallor, no jaundice. Not diaphoretic. EENT: No scleral icterus Cardio: regular rate and rhythm, no murmur auscultated Pulm: no increase in respiratory effort, non-labored breathing on room air. GI: Soft, distended. No masses or hernias seen. No prior surgical scars noted. Abdomen non-tender to palpation throughout with no guarding or rebound tenderness. Tympanic percussion. Extremities: b/l UE and LE warm and well perfused. Relevant data reviewed: Notable labs are: White Blood Cell Count Date Value Ref Range Status 05/17/2025 2.2 (L) 4.0 - 11.0 Thou/uL Final Hemoglobin Date Value Ref Range Status 05/17/2025 11.3 (L) 13.0 - 17.7 g/dL Final Hematocrit Date Value Ref Range Status 05/17/2025 33.8 (L) 39.0 - 54.0 % Final Platelet Count Date Value Ref Range Status 05/17/2025 173 150 - 450 Thou/uL Final Lab Results Component Value Date NA 132 (L) 05/17/2025 K 3.5 05/17/2025 CL 95 (L) 05/17/2025 CO2 24 05/17/2025 BUN 12 05/17/2025 CREAT 0.52 05/17/2025 GLUC 106 (H) 05/17/2025 Lab Results Component Value Date CALCIUM 9.0 05/17/2025 MG 1.9 05/17/2025 PHOS 2.7 05/17/2025 Lab Results Component Value Date AST 21 05/17/2025 ALT 10 05/17/2025 ALKPHOS 85 05/17/2025 BILITOT 1.0 05/17/2025 BILIDIR 0.2 05/17/2025 ALBUMIN 3.8 05/17/2025 PROT 6.9 05/17/2025 No results found for: AMYLASE , LIPASE Imaging Studies: CT Abdomen Archive for Reference Only Result Date: 05/17/2025 This study has been auto finalized and does not contain a result. CT Abdomen Archive for Reference Only Result Date: 05/17/2025 This study has been auto finalized and does not contain a result. Sign: Keerthi Pratt PA-C 05/18/2025 8:24 AM [1] [2] No medications prior to admission. [3] No Known Allergies Cosigned by Andrea Jaramillo MD at 05/18/2025 10:00 AM EDT documented in this encounter ED Notes * Ruth Chung RN - 05/18/2025 5:52 AM EDT S Situation Riana Coreas is a 60 y.o. male with a chief complaint of Abdominal Pain Riana Coreas is being admitted with an admitting diagnosis of: 1. Large bowel obstruction (HCC) . B Background Stated Reason for Visit: biba from [place] for stent malfunction, not causing a large bowel obstruction. pt has hx of stg colon cancer. pt is reporting abd pain and distention. currently on chemo. aox4, breathing w/ ease on RA. A Assessment Neuro/Cognitive Assessment: Cognitive/Neuro/Behavioral WDL: WDL, all Level of Consciousness: alert Arousal Level: opens eyes spontaneously Orientation: oriented x 4 Speech: clear, spontaneous, logical Skin Assessment: Skin WDL: WDL Cardiac Rhythm: Focused Assessment:Pt aox4. RR even and unlabored on RA. Breathing with ease in NAD. Pt denies CP, SOB, NVD, MONTIEL, dizziness att. Pt with carlton placed by OSH for urinary retention. Carlton intact draining yellow clear urine. Pt with two Bms overnight. Pt denies passing flatus. R chest port flushing adequately. Lpiv flushing adequately. Pt Ax1 to the commode att. Pt remains NPO. Plan for iphb. Isolation: No active isolations Critical labs: na Recent Labs 05/17/25 2245 GLUC 106* Type of Diabetes:N/A Insulin Pump:N/A Insulin Therapy (fast-acting):N/A Insulin Therapy (long-acting):N/A Interventions performed: Vitals, Carlton care, medication administration R Recommendation Special Needs or Precautions: Fall, Carlton Pending tests or interventions: CISCO Chung RN 05/18/25 5:52 AM Phone number: [phone] Ruth Chung RN 05/18/25 0558 * Ruth Chung RN - 05/18/2025 4:49 AM EDT Pt assist x1 to bedside commode. Light brown loose stool x1. Pt aox4. RR even and unlabored on RA. Breathing with ease in NAD. Chest rise and fall visualized. Pt offers no complaints att. Plan for iphb. Ruth Chung RN 05/18/25 0449 * Ruth Chung RN - 05/18/2025 2:10 AM EDT Pt assisted to bedside commode. Pt with light brown loose stool x1. Pt reports relief in abdominal pain s/p morphine administration. RR even and unlabored on RA. Breathing with ease in NAD. Chest rise and fall visualized. Plan for IPHB. Ruth Chung RN 05/18/25 0242 * Ruth Chung RN - 05/18/2025 12:00 AM EDT Pt to [facility]ED with SBO and occlusion of colon stent. Pt retaining urine @ OSH, carlton placed. Pt aox4. RR even and unlabored on RA. Breathing with ease in NAD. Chest rise and fall visualized. Abdomen distended, rounded. Carlton intact draining yellow clear urine. Pt offers no complaints att. Plan for iphb. Ruth Chung RN 05/18/25 0241 * Fabien Sullivan MD - 05/17/2025 10:30 PM EDT History of Present Illness: Riana Coreas is a 60 y.o. male with history of stage IV rectal cancer presents the emergency department from entrance from outside hospital for nausea, vomiting, likely large bowel obstruction secondary to failed palliative stents for cancer. Patient reports some mild abdominal discomfort. Physical Exam: Constitutional: Well-appearing, in no apparent respiratory distress. Does not appear ill Head: Atraumatic Eyes: EOMI, Conjunctivae Clear, No Icterus Ear, Nose, Mouth, Throat: Grossly normal inspection. Handling secretions normally. Neck: Supple. Normal ROM. Cardiovascular: Normal rate. Respiratory: No respiratory distress noted. No tachypnea noted. Gastrointestinal: Non-distended abdomen. Flat. Musculoskeletal: Grossly normal range of motion. Skin: Normal for age and race. No rash noted. Neurologic: Alert and appropriate, no apparent acute CN deficits. Medical Decision Making (MDM) DDx: Patient sent here for LBO likely secondary to obstruction due to failed stenting, will consultGI and surgery, medicine admission, IV fluids, pain control. E/M Coding Treatments/Interventions: The patient was treated with the following treatments or interventions: IV fluids, pain medication I considered but did not perform the following treatments or interventions: CT Chronic Medical Conditions: These chronic medical conditions for the patient were addressed: Stage IV rectal cancer The above medical conditions impacted care in this manner: Exacerbation of illness Discussion of Care with Other Providers: ED discussed management with the following EXTERNAL providers: Medicine, surgery, GI Escalation or De-Escalation of Care: The expected disposition for the patient is admit because needs IV fluid, pain control. Social Determinants of Health: These social determinants of health affected the patient's Emergency department visit today: recurrent visit for similar Medical Record Review: I reviewed past pertinent EXTERNAL medical records which described: [facility] I reviewed the patient's current medication list. If applicable, I made the following changes to the patient's medications: c/w current meds Independent Review of Tests/Imaging: All ordered radiographic imaging studies were independently reviewed and interpreted by myself. Notably these showed: CT no free air I independently reviewed the following labs. I ordered, or supervised the ordering of the labs thatwere conducted while the patient was cared for by the ED team: Labs Reviewed COMPLETE BLOOD COUNT, WITH DIFFERENTIAL - Abnormal; Notable for the following components: Result Value White Blood Cell Count 2.2 (*) Hemoglobin 11.3 (*) Hematocrit 33.8 (*) Red Blood Cell Count 3.87 (*) All other components within normal limits BASIC METABOLIC PANEL - Abnormal; Notable for the following components: Glucose 106 (*) Sodium 132 (*) Chloride 95 (*) All other components within normal limits PROTIME-INR - Abnormal; Notable for the following components: Prothrombin Time (PT) 25.0 (*) All other components within normal limits [employer] HEPATIC FUNCTION PANEL TYPE AND SCREEN ABO CONFIRMATION Fabien Sullivan MD 05/18/25 10:30 PM Please contact via Advisor Client Match or at extension [phone] with any questions or concerns. This report was generated using Schedule Savvyation software. Although every attempt has been made by the provider to proofread this document, occasional misspellings and typographical errors may still be present. Fabien Sullivan MD 05/18/25 0023 * Erica Caban RN - 05/17/2025 7:42 PM EDT RN to RN report: Hx liver CA, at CA clinic with abd pain and diarrhea. Recent colon stent which hasbeen found today to be blocked. Reported SBO. Received IV K+. Carlton. Alert and oriented. VSS Erica Caban RN 05/17/25 194 documented in this encounter Miscellaneous Notes * Case Coordination-Payor Communication - Gabbie Barr - 05/29/2025 1:36 PM EST PATIENT DISCHARGED 05/29/2025 Per State of [place] General Statutes Sec: [id number]: Notification of determination shall be mailed or otherwise communicated within 2 business days of receipt of all information necessary to complete the review. Please fax authorization determination to [phone] or call [phone] * Plan of Care - Malka Allen RN - 05/29/2025 1:34 PM EST Patient alert and oriented. Peripheral IV site already removed. Patient discharged home as ordered with home care services. Discharge instructions explained, reviewed and questions answered. Patient and his Syeda verbalized understanding. Patient transported off unit via wheelchair with transport services aide. Discharge plan resolved. Malka Allen 05/29/2025 1:34 PM * Plan of Care - Citlalli Magaña, RD - 05/29/2025 10:34 AM EST [facility] Nutrition Note Visit Type: follow up assessment Reason for Dietitian Visit: at nutrition risk. Reason for Admission: Large bowel obstruction (HCC) Pertinent Medical History: Past Medical History: Diagnosis Date ADHD GERD (gastroesophageal reflux disease) History of pulmonary embolus (PE) Hypertension Rectal cancer (HCC) Nutrition Diagnosis: Clinical: Malnutrition related to Chronic condition and chemotherapy as evidenced by Severe fat depletion(bicep/tricep fat pads) and severe muscle depletion (quadriceps and gastrocnemius) Diagnosis Status: no improvement/unresolved. Malnutrition Reason: malnutrition in the context of chronic illness Malnutrition Severity: severe malnutrition Clinical Characteristics: muscle mass loss, body fat loss Body Fat Loss: severe Muscle Mass Loss: severe Interventions/Recommendations: Food & Nutrient Delivery: 1. Continue low fiber diet 2. ONS:Ensure enlive Chocolate TID 3. Monitor ONS Intake and Fluids per I/Os 4. Monitor GI symptoms and colostomy output 5. Monitor and replete electrolytes PRN 6. Monitor skin integrity 7. Trend weights weekly Nutrition Education/Counseling: Educated on prior assessment Coordination of Nutrition Care: Collaboration with RN via [facility] Nutrition Plan for Discharge/Transfer: Low fiber diet with ONS as needed Nutrition Assessment: Nutrition following. Chart reviewed, pt is 60 yo M with history of rectal cancer with mets to liver, kidney, lung on palliative chemo. Presenting with large bowel obstruction now s/p laparoscopic loop colostomy creation with no evidence of dehiscence, parastomal hernia, or obstruction. Diet progressed to low fiber and tolerating well. Intake increasing. Low fiber education given on prior assessment with good understanding. Pt inquiring about ONS coupons - provided at bedside. Typical Food & Fluid Intake: Normal diet before chemotherapy. Appetite poor from chemo, mostly liquids like broth and ensure. Factors Affecting Nutritional Intake: appetite, altered gastrointestinal function, nausea Food Related Allergies: NKFA Cultural/Ethnic Preferences: None noted/reported. Food Insecurity Concerns: Never true Weight: Wt Readings from Last 1 Encounters: 05/26/25 80.9 kg (178 lb 5.6 oz) Weights (last 20 days) Date/Time Weight Scale 05/26/25 1220 80.9 kg (178 lb 5.6 oz) standing 05/18/25 0700 87.6 kg (193 lb 2 oz) standing Net IO Since Admission: -15,200.64 mL [05/29/25 1039] Nutrition Physical Findings: Physical Appearance: loss of muscle mass, loss of subcutaneous fat Muscle Wasting: Moderate Depletion: pectoralis major, deltoid, temporalis, trapezius, interosseous Severe Depletion: quadriceps, gastrocnemius Adipose Wasting: Moderate Depletion: orbital fat pad, buccal fat pad Severe Depletion: tricep/bicep fat pad Gastrointestinal: colostomy (active and passing flatus and stool) Wound Documentation Reviewed: yes Labs: Na 135, BUN 4, Cr 0.44, Ca 8.3 Diagnostics: reviewed Medications: PPI Estimated Daily Energy and Protein Needs: Energy Needs: 2190 - 2628 Kcals/day (25 - 30 Kcals/kg) based on 87.6 kg (193 lb 2 oz) Protein Needs: 123 - 158 gm, (1.4 - 1.8g/kg) based on 87.6 kg (193 lb 2 oz) Fluids: 2500ml based on MAINTENANCE JOURNEYMAN Method Current Diet: Diet Additional Diets; Low Fiber/ Low Residue Patient to receive supplements: three times a day - with meals; Order: Ensure Enlive, Chocolate, 8 oz Intake Compared to Estimated Needs: Energy Intake: not meeting needs (0-100% meals with average intake 57%. Intake trend increasing.) x(8d) days Protein Intake: not meeting needs x (8d) days Fluid Intake: other (see comments) (660ml x 24hr per I/O) Educational Needs Assessment: Assessed patient's learning needs. Barriers to Education: None noted at this time. Monitoring & Evaluation: Goals to be Achieved by Next Assessment: PO intake at least 75% of meals and ONS Pt tolerating diet Monitoring/Evaluation: RD/DTR will monitor and evaluate nutrition plan of care and provide additional interventions and recommendations based on nutrition/clinical status. Sign: Citlalli Magaña RD 05/29/2025 10:34 AM * Plan of Care - Hanna Ji RN - 05/29/2025 5:33 AM EST Problem: Adult Inpatient Plan of Care Goal: Plan of Care Review Outcome: Progressing Flowsheets (Taken 05/29/2025 0533) Plan of Care Reviewed With: patient Progress: improving Outcome Evaluation: Patient alert and oriented on room air, denies pain, n/v. Patient voiding per SEP. Heparin transfusing per protocol. Ostomy intact with stool and flatus. OOB with assist of one. Fall and skin precaution maintained. Plan of care on going. Hanna Ji 05/29/2025 5:33 AM * Plan of Care - Rome Wilkerson RN - 05/28/2025 5:49 PM EST Progress: improving Outcome Evaluation: Pt went to CT today for eval of incisional site. Redness and hardness improving. Pain controlled wtih oxycodone. Pt oob ambulating with assist. Plan to discharge home tomorrow if continues to progress. Rome Wilkerson 05/28/2025 5:49 PM * Plan of Care - Latonia Perry RN - 05/28/2025 2:43 PM EST Case Management Care Plan Note Summary: Per clinical progression rounds with the bedside RN and provider, and ongoing continuing care assessment, patient is not yet clinically stable for transition. Barriers to discharge: continued infectious monitoring, heparin gtt. At this time transition plan remains for patient to be discharged home w/ HC when medically stable. CC will continue to follow for readiness to transition. Recommendation: Anticipate transition home w/ HC when medically stable. Problem: Adult Inpatient Plan of Care Goal: Readiness for Transition of Care Outcome: Progressing Latonia Perry 05/28/2025 2:43 PM * Plan of Care - Francoise Pierce RN - 05/28/2025 3:14 AM EST Plan of Care Reviewed With: patient Progress: no change Outcome Evaluation: Patient alert and oriented x4. Pain controlled with oxycodone 10mg PO. Ambulated in hallway x1. Voiding. Ostomy active with stool and flatus. Tolerating diet. Heparin drip as ordered. Continues on IV antibiotics. Dr. Ribera made aware of hard, red, tender area to the top of the marked redness to abdomen, no new orders at this time. Will continue to monitor redness to abdomen. Francoise Pierce 05/28/2025 3:14 AM * Plan of Care - Saravanan Herrera RN - 05/27/2025 6:56 PM EST Plan of Care Reviewed With: patient Outcome Evaluation: Pt pain controlled with current regimen. Pt diet, no N/V. Ostomy intact with flatus and stool. Pt voiding adequate amounts. Monitoring redness to ABD, no change. Ambulating in room and dodson with one assist. Resting comfortably between care. See flowsheet for further information. Saravanan Herrera 05/27/2025 6:56 PM * Plan of Care - Francoise Pierce RN - 05/27/2025 3:44 AM EST Plan of Care Reviewed With: patient Progress: no change Outcome Evaluation: Patient alert and oriented x4. Afebrile. Ambulated in hallway x1. Tolerating diet. Voiding. Ostomy active for stool and flatus. Redness to abdomen marked with skin marker. Continues on IV antibiotics. Heparin drip as ordered, therpeutic x2 infusing at 15u/kg/hr, next anti Xa in AM. Fall precautions maintained. Francoise Pierce 05/27/2025 3:44 AM * Plan of Care - Evin Heredia RN - 05/26/2025 7:53 PM EDT Plan of Care Reviewed With: patient Progress: improving Outcome Evaluation: Patient is alert and oriented in room air, tolerating diet, ambulating in the hallway with assit of one. heparin gtt started at 15units/kg/hr this afternoon, first anti xa therapeutic, upcoming RN aware. IV abx given per SEP. ostomy active to stool and flatus. voiding adequate in urenal. prn oxy effective with pain controll per patient. Fall precaution maintained. Evin Heredia 05/26/2025 7:53 PM * Plan of Care - Armen Ravi RN - 05/26/2025 4:50 AM EDT Plan of Care Reviewed With: patient Progress: improving Outcome Evaluation: Alert and oriented. VSS. On room air. Pain well controlled with PRN Oxycodone. Tolerating low fiber / low residue diet. Report no nausea or vomit. Ostomy active for gas and stool.Surgical site well approximated with derma dillon. Redness area in abdomen, around colostomy and midline incision. Right chest port intact. IV Abx given per order. Voiding adequate amount of urine. OOBwith X1. Fall and skin precaution maintained. Armen Ravi 05/26/2025 4:50 AM * Plan of Care - Charley Linares RN - 05/25/2025 6:49 PM EDT Problem: Adult Inpatient Plan of Care Goal: Plan of Care Review Flowsheets (Taken 05/25/2025 184) Progress: improving Outcome Evaluation: Patient ambulated out of bed with one assist today. Tmax 99.1. Pain managed with oxycodone as needed. Colostomy changed per ostomy nurse, see note. Fall and skin precautions maintained, see plan of care. * Case Coordination-Payor Communication - Lety Rosales RN - 05/25/2025 3:46 PM EDT Continued Stay Review Date: 05/25/2025 Clinical Update: Patient underwent CT scan yesterday for area of erythema and induration on the left of his abdomen. There was a phlegmonous collection with some air but no definitive abscess. Pt underwent incision and drainage at bedside and no purulent fluid was expressed. The subcutaneous tissues appeared yellow and healthy. Wound culture was taken. He was started on broad-spectrum antibiotics. Pt had elevated temperature to 100.6F yesterday evening post I&D. Pain is well-controlled denies nausea or vomiting. Today he has similar erythema and induration.He is still having ostomy outputbrown stool. Tolerating low fiber diet. Eliquis continues to be held and will start heparin drip tomorrow morning. His white blood cell count is 4.4. Will continue to monitor on broad-spectrum antibiotics. He may require repeat CT scan to see if this forms into a more organized fluid collection that is amenable to further incision and drainage. Vitals: Pulse:82,Resp:18,BP:120/70,SpO2:98 %,Weight:87.6 kg (193 lb 2 oz)Temp Last 24 hrs: Temp Min: 98.3 ??F (36.8 ??C) Max: 100.6 ??F (38.1 ??C)Last temp: 98.7 ??F (37.1 ??C) (Tympanic) Physical Exam: Gen: alert, no acute distress Card: regular rate Pulm: normal effort of breathing with no signs of acute respiratory distress Abd: soft, nondistended, appropriately TTP, ostomy pink patent viable with gas and solid stool Skin: warm and dry Plan - Diet: Low fiber - Holding eliquis, heparin drip to resume at 10 AM on 05/26 -Monitor erythema which is marked -Continue IV antibiotics, - DVT ppx: SQH, SCDs - Pain control - Monitor vitals / strict I&Os - Pulmonary hygiene, IS - OOB and activity as tolerated Meds/Treatments: acetaminophen (TYLENOL) tablet 650 mg 650 mg, PO, Q6H RACHEL Given, 650 mg at 05/25 1144 amLODIPine (NORVASC) tablet 5 mg 5 mg, PO, Nightly Given, 5 mg at 05/24 2040 [Provider Held] apixaban (ELIQUIS) tablet 5 mg On hold since yesterday at 1138 until manually unheld (Needs Review) Hold reason: Pre-procedure 5 mg, PO, Q12H RACHEL Given, 5 mg at 05/24 1014 cefepime (MAXIPIME) 2 g in sodium chloride-MBP (NS) 100 mL IVPB-MBP 2 g, IV, Q8H RACHEL Stopped, 05/25 1251 chlorhexidine gluconate 2 % wipes - daily CHG application No Dose/Rate, TOP, Daily Given, 1 each at 05/25 956 clonazePAM (KlonoPIN) tablet 1 mg 1 mg, PO, Nightly Given, 1 mg at 05/24 2040 heparin (porcine) 5000 unit/mL injection 5,000 Units 5,000 Units, SC, Q8H RACHEL Given, 5,000 Units at 05/25 953 lamoTRIgine (LaMICtal) tablet 300 mg 300 mg, PO, Daily Given, 300 mg at 05/25 953 methocarbamol (ROBAXIN) tablet 500 mg 500 mg, PO, 4x Daily Given, 500 mg at 05/25 954 methylphenidate (CONCERTA) 24 hr tablet 18 mg 18 mg, PO, Daily Given, 18 mg at 05/25 954 metoPROLOL SUCCINATE (TOPROL-XL) 24 hr tablet 50 mg 50 mg, PO, Daily Given, 50 mg at 05/25 953 metroNIDAZOLE (FLAGYL) IVPB 500 mg in 100 mL NS (premix) 500 mg, IV, Q12H Stopped, 05/25 05 PANTOprazole (PROTONIX) injection 40 mg 40 mg, IV, Daily Given, 40 mg at 05/25 953 risperiDONE (RisperDAL) tablet 1 mg 1 mg, PO, Nightly Given, 1 mg at 05/24 2040 vancomycin (VANCOCIN) IV dosing PER PHARMACY PROTOCOL No Dose/Rate, Protocol, Pharmacy Protocol Orders Ordered vancomycin (VANCOCIN) IVPB 1750 mg in 500 mL NS (premix) 1,750 mg, IV, Q12H Stopped, 05/25 0741 PRN Medication Ordered Dose/Rate, Route, Frequency Last Action naloxone (NARCAN) 0.4 mg/mL injection 0.4 mg 0.4 mg, IV, Q5 Min PRN Ordered ondansetron (ZOFRAN) injection 4 mg 4 mg, IV, Q6H PRN Ordered oxyCODONE (ROXICODONE) immediate release tablet 10 mg (Or Linked Group #1) 10 mg, PO, Q4H PRN Given, 10 mg at 05/25 1144 oxyCODONE (ROXICODONE) immediate release tablet 5 mg (Or Linked Group #1) 5 mg, PO, Q4H PRN See Alternative, 05/25 1144 phenol (CHLORASEPTIC) 1.4 % spray 1 spray 1 spray, MT, Q2H PRN Ordered Labs/Diagnostics: 05/25/25 06:00 05/25/25 06:30 White Blood Cell Count 4.4 4.4 Red Blood Cell Count 3.17 (L) 3.11 (L) Hemoglobin 9.0 (L) 9.1 (L) Hematocrit 29.0 (L) 28.2 (L) MCV 92 91 MCH 28.4 29.3 MCHC 31.0 32.3 RDW 15.7 (H) 15.5 (H) Platelet Count 279 271 MPV 9.2 8.7 05/25/25 06:30 Sodium 135 (L) Potassium 3.5 Chloride 100 CO2, POC 22 Anion Gap 13 BUN 4 (L) Creatinine 0.44 (L) Bun / Creat Ratio 9 (L) Glucose 84 Calcium 8.3 (L) Magnesium 1.8 eGFR >[address] Abdomen and Pelvis (05/24/25) IMPRESSION: 1. Status post loop colostomy. Regions of inflammatory stranding and poorly organized edema adjacent to the ostomy site measuring approximately 6.8 x 6.7 cm with numerous foci of associated subcutaneous gas. No evidence of rim enhancement to suggest mature abscess however findings may represent phlegmonous changes. Additionally, given prominence of subcutaneous gas, cannot rule out necrotizing infection. Recommend biochemical and clinical correlation for further evaluation. 2. Circumferential bladder wall thickening concerning for cystitis. Multiple foci of gas seen anti-dependently along the anterior bladder wall, no Carlton in place. Cannot rule out gas-forming infection, recommend clinical correlation for recent Carlton placement. 3. Multiple fluid-filled loops of small bowel with mild dilation up to 3.4 cm. No discrete transition point. Findings favor small bowel ileus given recent procedure. 4. Stable circumferential thickening of the rectosigmoid bowel wall with similar degree of presacral edema and prominent mesorectal lymph nodes. Rectal stent remains in unchanged position. 5. Redemonstration of multiple hypodensities within the right hepatic lobe, which appears grossly decreased in size since CT abdomen pelvis from 04/07/2024. Given historyof known metastatic cancer status post chemotherapy, findings suggestive of improved metastatic lesions. 6. Small focus of groundglass within the medial aspect of right lower lobe may represent focal atelectasis. Cannot rule out infectious/inflammatory process. 7. Dilated gallbladder. No evidence of acute cholecystitis. 8. Prostatomegaly. Bed Type: Med Surg D/C Plan: Home with services when medically stable and cleared for discharge. Sign Lety Rosales RN 05/25/2025 3:46 PM * Plan of Care - Gris Ferreira RN - 05/25/2025 12:31 PM EDT Ongoing Case Management Care Plan Note Summary: Spoke with patient's Syeda. She stated that she had HH faxed health information of hospital stay to [facility] for the dates of 05/17 to 05/24. She stated she will need to fax the remaining days after 05/24 until patient is discharged home. Informed her patient's current KRISTA is 05/28. She stated that she attempting to find a new PCP for the patient. Recommendation: home with services Addendum 12:51 pm: Spoke with [facility] (not on Epic) they confirmed that patient is active with SN and PT and will be able to accept him back. Also updated them of patient's KRISTA. Problem: Adult Inpatient Plan of Care Goal: Readiness for Transition of Care Outcome: Progressing Gris Ferreira 05/25/2025 12:31 PM * Plan of Care - Armen Ravi RN - 05/25/2025 5:33 AM EDT Plan of Care Reviewed With: patient Progress: improving Outcome Evaluation: Alert and oriented. VSS. On room air. Pain well controlled with PRN Oxycodone. Tolerating low fiber / low residue diet. Report no nausea or vomit. Ostomy active for gas and stool.Surgical site well approximated with derma dillon. Redness area in abdomen, around colostomy and midline incision. Right chest port intact. IV Abx given per order. Voiding adequate amount of urine. OOBwith X1. Fall and skin precaution maintained. Armen Ravi 05/25/2025 5:33 AM * Plan of Care - Geneva Salazar MD - 05/24/2025 9:15 PM EDT Post procedure check: Patient seen and evaluated at bedside following I&D of the periumbilical incision. Patient doing well. Denies nausea or vomiting. Notes some discomfort when he is moving. He notes that when stafftook his vitals he had a slight fever. Last temp: (!) 100.6 ??F (38.1 ??C) (Tympanic), Pulse:89, BP:112/70, Resp:18, SpO2:99 % Gen: alert, no acute distress Pulm: normal effort of breathing with no signs of acute respiratory distress CVS: perfusing appropriately with warm skin Abd: soft, non distended, clean dressing over I&D site, slight periumbilical erythema within marked borders, ostomy viable with stool in bag Skin: warm and dry with no erythema Plan: - Will continue to monitor temperature, due for tylenol at this time Please call [facility] with questions or concerns. Geneva Salazar MD PGY-1, General Surgery 05/24/25 8:40 PM * Plan of Care - Evin Heredia RN - 05/24/2025 5:14 PM EDT Plan of Care Reviewed With: patient Progress: improving Outcome Evaluation: Patient is alert and oriented in room air, tolerating diet, ambulating in the hallway with assit of one. Provider did I&D at the bedside this evening. IV abx started pert order. ostomy active to stool and flatus. voiding adequate in urenal. prn oxy effective with pain controll per patient. Fall and skin precaution maintained. Evin Heredia 05/24/2025 5:14 PM * Case Coordination-Payor Communication - Nel Peace RN - 05/24/2025 11:50 AM EDT CONTINUED STAY DATE: 05/24/2025 CLINICALS:postop day 5 status post laparoscopic diverting loop colostomy creation.Patient is tolerating a low fiber diet. Patient continues to have output from his colostomy. He states he is overall been feeling well and is eager to be discharged today. He does note some pain towards the left side of his abdomen. Abdomen: Soft, non-distended, tender to palpation on the left side of the abdomen, colostomy pink and patent with bridge in place, there is new erythema and firmness between the Gregg port site and colostomy VS HR 80 rr 18 BP 110/70 Temp 100.2 SPO2 98%RA Plan - Noted to have erythema and firmness between the colostomy and midline Gregg port today, will obtain CBC and stat CT scan of the abdomen and pelvis to evaluate for possible fascial dehiscence, cellulitis, seroma, or abscess. -DC IVF yesterday -Oxycodone prn x1 BED TYPE: med surg Sign: Nel Peace RN 05/24/2025 * Plan of Care - Armen Ravi RN - 05/24/2025 5:54 AM EDT Plan of Care Reviewed With: patient Progress: improving Outcome Evaluation: Alert and oriented. VSS. On room air. Pain well controlled with Tylenol PO. Tolerating diet. Report no nausea or vomit. Ostomy active for gas and stool. Surgical site well approximated with derma dillon. Right chest port intact. Voiding adequate amount of urine. Fall and skin precaution maintained. Armen Ravi 05/24/2025 5:54 AM * Plan of Care - Fernanda Garcia RN - 05/23/2025 12:53 PM EDT Problem: Adult Inpatient Plan of Care Goal: Patient-Specific Goal (Individualized) Outcome: Progressing Flowsheets (Taken 05/23/2025 1252) Anxieties, Fears or Concerns: Pain control Individualized Care Needs: Provided pain meds as ordered. Provided calm and restful environment. Encourage ambulation frequently. Patient/Family-Specific Goals (Include Timeframe): Pain will be well controlled within 4 hours of intervention Plan of Care Reviewed With: patient Progress: no change Outcome Evaluation: Patient alert and oriented x 4. Pain well controlled with current pain regimen.Denies shortness of breath and chest pain. Heparin drip discontinued as ordered. Started on Eliquis. Able to utilized Incentive spirometer reaching 1000ml. Call banda and personal items within reached. Fall and skin precaution maintained. All needs attended. Plan of care ongoing. Fernanda Garcia 05/23/2025 12:53 PM * Plan of Care - Latonia Sung RN - 05/23/2025 5:42 AM EDT Plan of Care Reviewed With: patient Progress: improving Outcome Evaluation: Pt reports pain well controlled overnight. Ostomy active, teaching ongoing. Voiding. Fall & skin precautions maintained, pt ambulated in hallway overnight. Awake most of the night. Latonia Wednesday05/23/2025 5:42 AM * Plan of Care - Chelsea Robertson RN - 05/23/2025 12:02 AM EDT Plan of Care Reviewed With: patient Progress: improving Pt a/ox4,dPCA pump d/c. Medicated x1 for pain. Pt reports adequate pain control with current pain medication regimen. Good PO intake. Tolerating diet with no n/v/d. Multiple bags of IV K+ and a K+ phos administered per SEP. K+ rechecked= 4.9, and K+ phos was d/c prior to it finishing per provider. AntiXa therapeutic and recheck ordered for am draw. Ostomy active of flatus, stool. Fall/skin precaution maintained with POC ongoing. Chelsea Robertson 05/23/2025 12:02 AM * Plan of Care - Rosanna Day RN - 05/22/2025 11:20 AM EDT Case Management Care Plan Note Summary: Per clinical progression rounds with the bedside RN and provider, and ongoing continuing care assessment, patient is not yet clinically stable for transition. Febrile overnight. At this timetransition plan remains for patient to be discharged home routine when medically stable. CC will continue to follow for readiness to transition. Recommendation: Anticipate transition home routine when medically stable. Problem: Adult Inpatient Plan of Care Goal: Readiness for Transition of Care Outcome: Progressing Rosanna Day 05/22/2025 11:20 AM * Rehab Therapy Consults - Ania Workman, PT - 05/22/2025 9:40 AM EDT Physical Therapy Initial Evaluation Current Diagnosis and Pertinent Medical History: Riana Coreas is a 60 y.o. male presenting to ED from OSH with LBO at his stent site, now POD#3 s/p laparoscopic loop colostomy creation (05/19). Precautions/Restrictions: fall, other (see comments) (skin) Previous Level Of Function/Home Environment Home Environment: Living Arrangements: home People In Home: spouse Prior Level Of Function: Household Mobility: uses device or equipment Community Mobility: uses device or equipment Equipment Used at Home: rollator, walker, rolling, tub bench PLOF: Patient lives in a 2 story home with , 5 ARLETTE with B wide rails, stays on 1st floor, typically independent, has rollator and shower chair to use as needed. Assessment & Plan Assessment: At baseline, Riana is typically independent or modified independent with functional mobility, using a rollator as needed on days he has chemotherapy and has assistance available as neededfrom his spouse for activities. At this time, he is able to ambulate household distances with a rolling walker, though endorsing moderate to high fatigue levels following this. Anticipate patient will be able to regain their functional mobility and endurance to regain their independence prior to transitioning home with continued OOB mobility while he remains inpatient. If Riana was to transition home at this mobility level, would recommend Home PT, may need Ax1 for stair negotiation, rolling walker, commode chair and assistance as needed for functional mobility andactivities. Rehab Plan of Care: PT will continue to follow-up with the patient to address their functional mobility deficits impacting their bed mobility, transfers, ambulation and stair negotiation. Would encourage the patient to mobilize daily with nursing and mobility staff to maintain their current level of physical functioning; see recommendations below. -PT Recommendations for Staff: Ax1 RW Amb 3x/day, OOB to chair prn -PT Frequency during Hospitalization: 2-3 times/wk -Plan of Care Reviewed With: patient Outcome Measures The Activity Measure for Post-Acute Care (AM-PAC) Basic Mobility Inpatient Short Form (6-clicks) rafa standardized measure used to quantify functional deficits in mobility. The total score of the measure ranges from 6-24. A higher score indicates a higher level of independence with functional mobility. Baseline [facility] Basic Mobility Score: 24 Current [facility] Basic Mobility Score: 17 Objective Data ROM: AROM BLE grossly WFL throughout MMT: BLE grossly 4-/5 throughout Bed Mobility: Modified independent with all bed mobility interventions Transfers: CGA for sit to stand/stand to sit to/from recliner chair with arms Gait/Stairs: 75' ambulation x 2 repetitions with RW, gait belt and CGA, assistance for IV pole management, patient with increased forward trunk flexion, brief standing rest breaks, patient with high fatigue levels upon return to room Balance: static sitting-good; dynamic sitting-good; static standing;-good with RW, dynamic standing-fair with RW. Activity Tolerance: Good for eval. Patient performed all activity on room air. Education: Role of PT, purpose of evaluation and POC. Treatment: functional mobility training Subjective Thank you! Past Medical/Surgery History Past Medical History: Diagnosis Date ADHD GERD (gastroesophageal reflux disease) History of pulmonary embolus (PE) Hypertension Rectal cancer (HCC) Past Surgical History: Procedure Laterality Date CREATION COLOSTOMY N/A 05/19/2025 Procedure: LAPAROSCOPY CREATION OF COLOSTOMY; Surgeon: Radha Gay MD; Location: Main OR; Service: [place]-Rectal; Laterality: N/A; Flowsheet Data 05/22/25 0940 Physical Therapy Time and Intention PT Visit Type initial evaluation Mode of Treatment physical therapy Patient Effort good Symptoms Noted During/After Treatment fatigue General Information Patient Profile Reviewed yes Onset of Illness/Injury or Date of Surgery 05/17/25 Referring Physician MD Deidra Patient/Family/Caregiver Comments/Observations Thank you! General Observations of Patient Patient received resting in recliner chair, in NAD, on room air, agreeable to PT evaluation. Pertinent History of Current Functional Problem Per EMR: 60M GERD, htn, adhd, PE, rectosigmoid ca with metastasis to liver/kidney/lungs on palliative chemotherapy, rectal stent placement 03/20/25 OSH presented with LBO at his stent site now POD 3 s/p laparoscopic loop colostomy creation on 05/19. Existing Precautions/Restrictions fall;other (see comments) (skin) Previous Level of Function/Home Environm BADLs, Previous Functional Level independent IADLs, Previous Functional Level partial assistance Household Ambulation, Previous Functional Level uses device or equipment Community Ambulation, Previous Functional Level uses device or equipment Previous Level of Function PLOF: Patient lives in a 2 story home with , 5 ARLETTE with B wide rails, stays on 1st floor, typically independent, has rollator and shower chair to use as needed. Living Environment Current Living Arrangements home Home Accessibility stairs to enter home;stairs within home People in Home spouse Primary Care Provided by self;spouse/significant other Home Main Entrance Number of Stairs, Main Entrance five Stair Railings, Main Entrance railings on both sides of stairs (wide, can use one at a time) Stairs Within Home, Primary Stairs, Within Home, Primary 1 FOS inside, though stays on 1st floor Stair Railings, Within Home, Primary railings on both sides of stairs Home Use of Assistive/Adaptive Equipment Equipment Currently Used at Home rollator;walker, rolling;tub bench Pain Additional Documentation Pain Scale: Word Pre/Post-Treatment (Group) Pre/Posttreatment Pain Comment (Word Scale) no pain verbalized Cognition Cognitive Status WFL Affect/Mental Status (Cognition) WFL Orientation Status (Cognition) oriented x 4 Follows Commands (Cognition) WFL Safety Issues/Impairments Affecting Functional Mobility Impairments Affecting Function (Mobility) balance;endurance/activity tolerance;pain;postural/trunk control;strength Health Promotion Additional Documentation Coping (Group);Plan of Care Review (Group) Coping Observed Emotional State calm;cooperative Verbalized Emotional State acceptance Trust Relationship/Rapport care explained;choices provided;emotional support provided;empathic listening provided;questions answered;questions encouraged;reassurance provided;thoughts/feelings acknowledged Family/Support Persons patient Involvement in Care participating in care;supportive of patient Family/Support System Care support provided;self-care encouraged Diversional Activities television Plan of Care Review Plan of Care Reviewed With patient Safety Safety WDL WDL All Alarms alarm(s) activated and audible Enhanced Safety Measures bed alarm set Additional Documentation All Alarms (Row) Progressive Mobility Progressive Mobility Level Achieved Ambulation Ambulation Distance (Feet) 75 [facility] Basic Mobility Turning from your back to your side while in a flat bed without using bedrails? 3 Moving from lying on your back to sitting on the side of a flat bed without using bedrails? 3 Moving to and from a bed to a chair (including wheelchair)? 3 Standing up from a chair using your arms? 3 To walk in a hospital room? 3 Climbing 3-5 steps with a railing? 2 [facility] Basic Mobility Score 17 Therapy Assessment/Plan (PT) Patient/Family Therapy Goals Statement (PT) To get better Functional Level at Time of Evaluation (PT) Ax1 RW Amb PT Diagnosis (PT) Impaired functional mobility and endurance Rehab Potential (PT) good Criteria for Skilled Interventions Met (PT) yes;meets criteria;skilled treatment is necessary Therapy Frequency (PT) 2-3 times/wk PT Recommendations for Staff Ax1 RW Amb 3x/day, OOB to chair prn Predicted Duration of Therapy Intervention (PT) LOS Planned Therapy Interventions (PT) balance training;bed mobility training;gait training;home exercise program;neuromuscular re-education;patient/family education;postural re-education;stair training;strengthening;transfer training Problem List (PT) problems related to;balance;mobility;strength;pain;postural control PT Evaluation Complexity History, PT Evaluation Complexity 3 or more personal factors and/or comorbidities Examination of Body Systems (PT Eval Complexity) total of 3 or more elements Clinical Presentation (PT Evaluation Complexity) stable Clinical Decision Making (PT Evaluation Complexity) moderate complexity Overall Complexity (PT Evaluation Complexity) moderate complexity Therapy Plan Review/Discharge Plan (PT) Therapy Plan Review (PT) evaluation/treatment results reviewed;care plan/treatment goals reviewed;risks/benefits reviewed;current/potential barriers reviewed;participants voiced agreement with care plan;participants included;patient Anticipated Equipment Needs at Discharge (PT) walker, rolling Physical Therapy Goals Bed Mobility Goal Selection (PT) bed mobility, PT goal 1 Transfer Goal Selection (PT) transfer, PT goal 1 Gait Training Goal Selection (PT) gait training, PT goal 1 Stairs Goal Selection (PT) stairs, PT goal 1 Bed Mobility Goal 1 (PT) Activity/Assistive Device (Bed Mobility Goal 1, PT) bed mobility activities, all [place] Level/Cues Needed (Bed Mobility Goal 1, PT) modified independence Time Frame (Bed Mobility Goal 1, PT) 1 week Transfer Goal 1 (PT) Activity/Assistive Device (Transfer Goal 1, PT) transfers, all [place] Level/Cues Needed (Transfer Goal 1, PT) modified independence Time Frame (Transfer Goal 1, PT) 1 week Gait Training Goal 1 (PT) Activity/Assistive Device (Gait Training Goal 1, PT) gait (walking locomotion);assistive device use;walker, rolling Haywood Level (Gait Training Goal 1, PT) modified independence Distance (Gait Training Goal 1, PT) 250 ft Time Frame (Gait Training Goal 1, PT) 2 weeks Stairs Goal 1 (PT) Activity/Assistive Device (Stairs Goal 1, PT) stairs, all skills [place]wood Level/Cues Needed (Stairs Goal 1, PT) modified independence Number of Stairs (Stairs Goal 1, PT) 5 Time Frame (Stairs Goal 1, PT) 2 weeks Sign: Ania Workman, PT Please reach out via [employer]ext to this brief writer with any questions, thank you. * Rehab Therapy Consults - Karen Jones OT - 05/22/2025 8:39 AM EDT Occupational Therapy Initial Evaluation Current Diagnosis and Pertinent Medical History: Riana Coreas is a 60 y.o. male admitted to on 05/17 w/ LBO at stent site. Now s/p laparoscopic loop colostomy creation on 05/19. PMH detailed below. Precautions/Restrictions: fall, other (see comments) (skin) Occupational Profile/Previous Level Of Function Occupational History/Life Experiences: Patient lives w/ spouse in a [facility]. Reports baseline independence w/ ADLs, spouse assists w/ IADLs. Typically independent w/ mobility, uses rollator as needed. 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 Agreeable to OT session. Riana currently presents below independent baseline 2/2 deficits in activity tolerance and w/ increased abdominal pain following procedure. He completed all functional mobility w/ Ax1 and BUE support on PIV pole. Additionally, Riana completed sinkside ADL in standing w/ set up assist. Education provided on LB dressing techniques w/ patient able to maintain figure four positioning seated to adjust socks. Riana endorsed moderate abdominal pain w/ activity, though tolerated session well overall. Anticipate he will continue to progress w/ further therapy and as pain improves, and will be able to transition home w/ support from spouse. Will continue to monitor for potential home OT needs. Recommend RW use and a shower chair at this time (has both at home). Rehab Plan of Care: OT will continue to follow 2-3x/week while in house w/ focus on LB dressing, ostomy management. Encourage OOB to chair for meals and active engagement in all self care tasks. -OT Recommendations for Staff: Ax1 to bathroom w/ RW -OT Frequency during Hospitalization: 2-3 times/wk -Plan of Care Reviewed With: evaluation/treatment results reviewed, participants included, patient Outcome Measures The Activity Measure for Post-Acute Care (AM-PAC) Daily Activity Inpatient Short Form (6-clicks) rafa standardized measure used to quantify deficits in self-care. The total score of the measure ranges from 6-24. A higher score indicates a higher level of independence with self-care tasks. Baseline [facility] Daily Activity Score: 24 Current [facility] Daily Activity Score: 17 Objective Data Cognitive Status: Patient alert w/ appropriate sustained attention throughout. RASS 0. Oriented x4.Consistently following verbal commands w/ no safety issues noted during session. Demonstrating appropriate insight into current functional status. Cognition appears WFL at this time. Activities of Daily Living: Feeding: independently eating breakfast seated in recliner at EOS Grooming: set up and SBA to wash face and hands standing sinkside Oral Care: set up and SBA to complete oral hygiene standing sinkside UB Dressing: min A to don and fasten [facility] gown in standing LB Dressing: able to adjust B socks seated w/ use of figure four method Toileting: +ostomy Functional Mobility: Bed Mobility: min A supine>sit EOB w/ HOB elevated, cueing provided for use of log roll method Transfers: CGA sit<>stand Functional Ambulation: CGA w/ BUE support on PIV pole for functional mobility w/in room Sensory Systems: Vision: +corrective lenses, denied acute visual changes/concerns Hearing: intact Somatosensory: BUEs intact to light touch, denied N/T ROM: BUEs WFL Strength: BUEs at least 3+/5 as observed functionally Coordination: WFL for ADL Balance: SBA for sitting and static standing balance, Ax1 w/ BUE support for dynamic standing balance Activity Tolerance: Good for session. Reporting 7/10 abdominal incisional pain; Patient performed all activity on room air. Education: Role of OT, purpose of evaluation and POC. Treatment: Facilitated participation in ADL and functional mobility as detailed above, with appropriately graded cues and education embedded into task to ensure patient's safe and effective completion of tasks and increase safe functional independence. Education provided on modifications to reduce abdominal pain and strain including bracing w/ pillow when coughing, figure four method w/ LB dressing. Subjective I've worked with therapy before. Past Medical/Surgery History Past Medical History: Diagnosis Date ADHD GERD (gastroesophageal reflux disease) History of pulmonary embolus (PE) Hypertension Rectal cancer (HCC) Past Surgical History: Procedure Laterality Date CREATION COLOSTOMY N/A 05/19/2025 Procedure: LAPAROSCOPY CREATION OF COLOSTOMY; Surgeon: Radha Gay MD; Location: [facility] OR; Service: [place]-Rectal; Laterality: N/A; Flowsheet Data 05/22/25 0839 OT Time and Intention OT Visit Type initial evaluation Mode of Treatment individual therapy;occupational therapy Patient Effort good Symptoms Noted During/After Treatment fatigue General Information Patient Profile Reviewed yes Onset of Illness/Injury or Date of Surgery 05/17/25 Referring Physician Latonia Thurman MD Patient/Family/Caregiver Comments/Observations I've worked with therapy before. General Observations of Patient Received resting in bed, alert and agreeable to OT. +PIV +STAGE SETTINGS PAINTER pump Pertinent History of Current Functional Problem 60 y/o male w/ hx of GERD, htn, adhd, PE, rectosigmoid ca with metastasis to liver/kidney/lungs on palliative chemotherapy, rectal stent placement 03/20/25 OSH presented with LBO at his stent site now s/p laparoscopic loop colostomy creation on 05/19. Existing Precautions/Restrictions fall;other (see comments) (skin, avoid abdominal straining) Previous Level of Function/Home Environm BADLs, Previous Functional Level independent IADLs, Previous Functional Level partial assistance Bed Mobility, Previous Functional Level independent Transfers, Previous Functional Level independent Household Ambulation, Previous Functional Level independent Stairs, Previous Functional Level independent Community Ambulation, Previous Functional Level independent Previous Level of Function prn use of RW Living Environment Current Living Arrangements home Home Accessibility stairs to enter home;stairs within home People in Home spouse Primary Care Provided by self Home Use of Assistive/Adaptive Equipment Equipment Currently Used at Home rollator;walker, rolling;tub bench Occupational Profile Occupational History/Life Experiences (Occupational Profile) Patient lives w/ spouse in a [facility]. Reports baseline independence w/ ADLs, spouse assists w/ IADLs. Typically independent w/ mobility, uses rollator as needed. 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 Environmental Supports and Barriers (Occupational Profile) supportive spouse, has first floor set up Patient Goals (Occupational Profile) return home, return to PLOF Pain Pre/Posttreatment Pain Comment (Word Scale) endorsing 7/10 abdominal incisional pain Cognition Affect/Mental Status (Cognition) WFL Orientation Status (Cognition) oriented x 4 Coping Observed Emotional State calm;cooperative;pleasant Verbalized Emotional State acceptance Trust Relationship/Rapport care explained;choices provided;questions encouraged;questions answered Family/Support Persons patient Involvement in Care participating in care Family/Support System Care support provided;self-care encouraged Safety Safety WDL WDL All Alarms alarm(s) activated and audible Enhanced Safety Measures chair alarm set Progressive Mobility Progressive Mobility Level Achieved Ambulation [facility] Daily Activity Putting on and taking off Lower Body Clothing? 3 Bathing (including washing/rinsing/drying)? 3 Toileting (includes using toilet, bedpan, or urinal)? 1 Putting on and taking off upper body clothing? 3 Taking care of personal grooming such as brushing teeth? 3 Eating meals? 4 [facility] Daily Activity Score 17 Therapy Assessment/Plan (OT) Patient/Family Therapy Goal Statement (OT) return home, return to PLOF Rehab Potential (OT) good Criteria for Skilled Therapeutic Interventions Met (OT) yes Therapy Frequency (OT) 2-3 times/wk Predicted Duration of Therapy Intervention (OT) LOS Planned Therapy Interventions (OT) activity tolerance training;functional balance retraining;occupation/activity based interventions;patient/caregiver education/training;transfer/mobility retraining;strengthening exercise Evaluation Complexity (OT) Overall Complexity of Evaluation (OT) moderate complexity Therapy Plan Review/Discharge Plan (OT) Therapy Plan Review (OT) evaluation/treatment results reviewed;participants included;patient OT Recommendations for Staff Ax1 to bathroom w/ RW OT Goals Transfer Goal Selection (OT) transfer, OT goal 1 Bathing Goal Selection (OT) bathing, OT goal 1 Dressing Goal Selection (OT) dressing, OT goal 1 Toileting Goal Selection (OT) toileting, OT goal 1 Transfer Goal 1 (OT) Activity/Assistive Device (Transfer Goal 1, OT) transfers, all [place] Level/Cues Needed (Transfer Goal 1, OT) modified independence Time Frame (Transfer Goal 1, OT) 2 weeks Bathing Goal 1 (OT) Activity/Device (Bathing Goal 1, OT) bathing skills, all [place] Level/Cues Needed (Bathing Goal 1, OT) modified independence Time Frame (Bathing Goal 1, OT) 2 weeks Dressing Goal 1 (OT) Activity/Device (Dressing Goal 1, OT) lower body dressing Haywood/Cues Needed (Dressing Goal 1, OT) modified independence Time Frame (Dressing Goal 1, OT) 2 weeks Toileting Goal 1 (OT) Activity/Device (Toileting Goal 1, OT) other (see comments) (ostomy management) [place] Level/Cues Needed (Toileting Goal 1, OT) modified independence Time Frame (Toileting Goal 1, OT) 2 weeks Sign: Karen Jones OT * Plan of Care - Radha Bush RN - 05/22/2025 3:09 AM EDT Pt alert and oriented, voiding to the urinal, OOBx1 and tolerating diet. Pain pump in use, denied nausea or vomiting. IV heparin running at 15 units. Ostomy active with flatus and stool. Single lumenchest port accessed and intact. Lap incisions with dermabond. High temperature reported to provider. Fever work-up done, results negative. Tylenol ordered for every six hrs. Lab called with critical labs. Provider notified. Replacements ordered and started. Fall and skin precautions were maintained. Will continue with plan of care. Radha Bush 05/22/2025 3:09 AM * Plan of Care - Jessica Champion DO - 05/22/2025 12:50 AM EDT Surgery Update Pt found to be febrile to 101.2 and tachycardic to 104. Fever work-up started overnight. CXR: no consolidations CBC: Leukopenia (improving), otherwise unremarkable Urine: No UTI Pending blood cultures Calves soft and nontender. Ivs without signs of infection. Ostomy is pink and patent with stool andgas in the bag. Added scheduled tylenol ATC. Will continue to trend fever curve. Discussed with Dr. Benjamin who is in agreement with the plan. Luann Champion DO General Surgery PGY-1 * Plan of Care - Chelsea Robertson RN - 05/21/2025 6:58 PM EDT Plan of Care Reviewed With: patient Progress: improving Pt a/ox4, denies any pain or discomfort. Pt reports adequate pain control with current pain medication regimen. PT and OT eval ordered. Diet advanced to clears. Good PO intake. Tolerating diet with no n/v/d. IV K+ and K+ phos administered per SEP. Cont on NS running at 50 ml/hr. Carlton d/c and voiding adequately. Ostomy changed, flatus, no stool. Fall/skin precaution maintained with POC ongoing. Chelsea Robertson 05/21/2025 6:58 PM * Case Coordination-Payor Communication - Nel Peace RN - 05/21/2025 1:47 PM EDT CONTINUED STAY DATE: 05/21/2025 CLINICALS:POD 2 s/p laparoscopic loop colostomy creation on 05/19. NGT removed overnight after gravity trial, advanced to sips of cld. Doing well. VSS Temp 99.8 Pain controlled with IV STAGE SETTINGS PAINTER. Carlton cath with good urine output. Abd: soft, nondistended, appropriately TTP, ostomy pink patent viable with small amount of yellow-green output Plan - D/c Carlton - Diet: advance to full CLD, IVF LR@50 hr - DVT ppx: heparin gtt - Pain control: IV STAGE SETTINGS PAINTER - Monitor vitals / strict I&Os - Pulmonary hygiene, IS - OOB and activity as tolerated - Am labs BMP: replaced IV as ordered 05/21/25 05:30 Sodium 134 (L) Potassium 3.1 (L) Chloride 97 (L) CO2, POC 19 (L) Anion Gap 18 (H) BUN 5 (L) Creatinine 0.37 (L) Bun / Creat Ratio 14 Glucose 86 Calcium 8.6 (L) Magnesium 1.7 eGFR >90 Phosphorus 2.0 (L) BED TYPE: Med surg Sign: Nel Peace RN 05/21/2025 * Plan of Care - Adrian Yu RN - 05/21/2025 6:05 AM EDT Problem: Adult Inpatient Plan of Care Goal: Plan of Care Review Flowsheets (Taken 05/21/2025 06) Outcome Evaluation: Patient is alert and oriented x4 and on room air. Pain is very well managed with rotary cutter iv dilaudid set at scheduled interval. Carlton catheter is draining adequate yellow urine with no issue. Patient experienced bowel incontinence intermittently even though patient has an ostomy bagwhich is currently active with flatus but no stool yet. Provider has been notified. Currently on sips of clear, and ice chips. On fall and skin precaution with all safety round checks completed. Careplan is ongoing. Adrian Yu 05/21/2025 6:05 AM * Plan of Care - Nicanor Sanders MD - 05/20/2025 8:39 PM EDT Nasogastric Tube Removal After gravity trial for 6 hours, there was minimal residual fluid in the Carlton bag and when returned to suction. Patient denies any nausea or vomiting during this time. The NG tube was removed with tip intact. Patient tolerated procedure well. NGT decompression was performed for LBO. Patient denies any nausea or vomiting during this time. The NGT was removed with tip intact. Patient tolerated procedure well. - Advance diet to sips of clears -- Nicanor Sanders MD PGY-1 General Surgery 05/20/2025 8:39 PM * Plan of Care - Shahriar Castañeda RN - 05/20/2025 7:30 PM EDT Plan of Care Reviewed With: patient Progress: improving Outcome Evaluation: Pain well controlled throughout shift with Dilaudid STAGE SETTINGS PAINTER. NPO status maintained.NGT to gravity today, tape changed. Carlton catheter draining adequately throughout shift. OOBx1 and ambulating in room, up in chair today. KCL IV and Magnesium sulfate given for electrolyte replacements. Fall and skin precautions maintained. All safety measures in place. Plan of care ongoing. Shahriar Castañeda 05/20/2025 7:30 PM * Plan of Care - Adrian Yu RN - 05/20/2025 8:10 AM EDT Problem: Adult Inpatient Plan of Care Goal: Plan of Care Review Flowsheets (Taken 05/20/2025 0810) Outcome Evaluation: Patient is alert and oriented x4 and on room air. Pain is very well managed with rotary cutter iv dilaudid set at scheduled interval. No nausea reported by patient. Currently on NPO status with NG tube set to low wall continuous suction. Patient's skin is intact except lap incision sites and a healed pressure injury on coccyx area with foam dressing applied. Patient tried walking but did complained of a slight dizziness. On fall and skin precaution with all safety round checks completed. Care plan is ongoing. Adrian Yu 05/20/2025 8:10 AM * Plan of Care - Chelsea Robertson RN - 05/19/2025 7:31 PM EDT Plan of Care Reviewed With: patient Progress: improving Patient admitted from PACU to [place] [id number]. Arrived at 1300hrs, accompanied by nurse on a bed. Belongings with pt. Patient on 2L via NC. Has LR running at 100ml/hr. 4 eyes done, ostomy showing pink wet stoma. Pt a/o4, on a dPCA pump, denies any pain at this time. Patient oriented to room and unit, call banda within reach, no voiced concerns at this time. Fall precautions placed with POC ongoing. Chelsea Robertson 05/19/2025 12:58 PM * Plan of Care - Felipe Limon MD - 05/19/2025 3:41 PM EDT Patient was under my service this morning, however patient went to surgery prior to be seen by me. Postsurgery patient was transferred over to the General Surgery service. * Plan of Care - Geneva Salazar MD - 05/19/2025 3:23 PM EDT General Surgery Post Operative Note Assessment/Plan Principal Problem: Large bowel obstruction (HCC) (POA: Yes) Active Problems: ADHD (POA: Unknown) HTN (hypertension) (POA: Unknown) History of pulmonary embolus (PE) (POA: Unknown) GERD (gastroesophageal reflux disease) (POA: Unknown) Rectal cancer metastasized to liver (HCC) (POA: Unknown) Anxiety (POA: Unknown) Resolved Problems: LOS: 2 days Procedures: Surgical/Procedural Cases on this Admission Case IDs Date Procedure Surgeon Location Status [id number] 05/19/25 LAPAROSCOPY CREATION OF COLOSTOMY Radha Gay MD Main OR Comp Assessment & Plan Assessment: This is a 60 y.o. male status post Procedure(s) (LRB): LAPAROSCOPY CREATION OF COLOSTOMY (N/A). Plan(s): - NPO, mIVF - NGT lws - DVT: hep gtt - F/u bmp, mag, phos after repletion Subjective Pt recovering. Pain well controlled on current regimen, Pt denies nausea, vomiting. Notes ostomy bag has been full of air and emptied Objective Last Vitals Pulse:84,Resp:18,BP:(!) 140/80,SpO2:97 %,Weight:87.6 kg (193 lb 2 oz) Temp Last 24 hrs: Temp Min: 95 ??F (35 ??C) Max: 98.3 ??F (36.8 ??C) Intake/Output Summary (Last 24 hours) at 05/19/2025 1523 Last data filed at 05/19/2025 1340 Gross per 24 hour Intake 1920.4 ml Output 2005 ml Net -84.6 ml Diet NPO Relevant data reviewed Notable labs are: White Blood Cell Count Date Value Ref Range Status 05/19/2025 1.6 (LL) 4.0 - 11.0 Thou/uL Final Comment: Results verified by smear review. Hemoglobin Date Value Ref Range Status 05/19/2025 10.2 (L) 13.0 - 17.7 g/dL Final Hematocrit Date Value Ref Range Status 05/19/2025 30.6 (L) 39.0 - 54.0 % Final Platelet Count Date Value Ref Range Status 05/19/2025 163 150 - 450 Thou/uL Final Lab Results Component Value Date NA 139 05/19/2025 K 3.1 (L) 05/19/2025 CL 102 05/19/2025 CO2 22 05/19/2025 BUN 11 05/19/2025 CREAT 0.45 (L) 05/19/2025 GLUC 99 05/19/2025 GLUC 89 05/19/2025 Lab Results Component Value Date CALCIUM 8.2 (L) 05/19/2025 MG 1.7 05/19/2025 PHOS 2.2 (L) 05/19/2025 Lab Results Component Value Date AST 21 05/17/2025 ALT 10 05/17/2025 ALKPHOS 85 05/17/2025 BILITOT 1.0 05/17/2025 BILIDIR 0.2 05/17/2025 ALBUMIN 3.8 05/17/2025 PROT 6.9 05/17/2025 No results found for: AMYLASE , LIPASE Lab Results Component Value Date PTT 37 (H) 05/18/2025 LABPROT 25.7 (H) 05/18/2025 INR 2.2 05/18/2025 Physical Exam Gen: alert, no acute distress Card: regular rate and rhythm Pulm: normal effort of breathing with no signs of acute respiratory distress Abd: soft, mildly distended, appropriately tender, incisions c/d/I, ostomy pink patent viable with bowel sweat and gas output along with small amount of red brown liquid output Skin: warm and dry with no erythema Signed Geneva Salazar MD General Surgery, PGY-1 05/19/25 3:23 PM * Op Note - Radha Gay MD - 05/19/2025 9:12 AM EDT Images from the original note were not included. [facility] [address] [place] [phone] OPERATIVE REPORT Patient Name: Riana Coreas Date of : 1965 Date of Procedure: 05/19/2025 Surgeons and Role: * Radha Gay MD - Primary * Marcela Lyn DO - Resident - Assisting Pre-op Diagnosis: Large bowel obstruction (HCC) [K56.609] Post-Op Diagnosis Codes: * Large bowel obstruction (HCC) [K56.609] Details of Procedure Procedure(s): LAPAROSCOPY CREATION OF COLOSTOMY Additional Procedures Surgeon: Radha Gay MD Refrigerator Room Clerk: Marcela Lyn, PGY3 Anesthesia: general Indications: 60-year-old male with a past medical history of metastatic rectal cancer status post rectal stent placement at outside hospital who presents with occluded stent and large bowel obstruction. Will proceed to operating room for laparoscopic, possible open loop colostomy creation. Description of Procedure: After informed consent, the patient was brought to the operating room and placed in a supine position. They underwent induction with anesthesia without complication. The patient was prepped and draped in the usual sterile fashion. At this point, a WHO preoperative timeout and surgical check list was performed. The procedure was confirmed, the patient's identity was verified, preoperative antibiotics were given, all members of the team were identified and in agreement. We proceeded with the procedure. A 2 cm vertical incision was made superior to the umbilicus and dissection was carried bluntly downto the level of the fascia. The fascia was grasped, retracted upward and sharply incised. The peritoneal cavity was safely entered and a ballooned Karina trocar was placed. The abdomen was insufflated to 15 mmHg. A 5 mm trocar was placed in the right lower quadrant and right mid abdomen. Attention was then turned to the the descending colon. The patient was noted to have redundant colon. I tracedthe loop of sigmoid identified the portion going distally down towards the pelvis and the portion going proximally to the transverse colon. Minimal mobilization at the white line of Toldt using Thunderbeat was required. There was now significant length on the colon to reach the prior marked spots of the ostomy. The colon was grasped at the location to make the loop colostomy. At the annie of the prior ostomy a circular incision was made. I dissected down through subcutaneous tissue until I reached the anterior fascia. The anterior fascia was opened in a cruciate incision with electrocautery and rectus muscle was identified below. The rectus muscle was bluntly divided. The posterior sheath was incised using electrocautery. The abdomen was desufflated and the loop of the sigmoid colon was pulled out through this incision using a Sawyer. A small hole in the mesentery was created just underneath the colon through which a plastic bridge was placed. The abdomen was reinsufflated and we confirmed that the proximal portion of the colon was cranial and the distal portion was caudal. The 5 mmtrocars were removed under direct visualization and there was no evidence of bleeding. The abdomen was once again desufflated and the fascia at the site of the Gregg trocar was closed with an 0 Vicryl in a [id number] fashion x 2 and with 0 vicryl interrupted sutures. The wounds were irrigatedand the skin was closed with 4-0 Monocryl. The supraumbilical incision was closed in multiple layers with 3-0 vicryl and running 4-0 monocryl. Surgical glue was placed over the top of the incisions. N ext we turned our attention to maturing the loop colostomy. The colon was opened anteriorly using with the cautery. The loop colostomy was matured in a Christina fashion using interrupted 3-0 Vicryl sutures. The bridge was sutured in place using 2-0 Nylon suture. Hemostasis was achieved. Colostomy bagwas placed. At the end of the procedure, all equipment counts were correct. I was present and scrubbed throughout all critical aspects of the case. The patient was awoken from anesthesia without complication. Complications: none Operative Findings: distended colon and small bowel Total Fluids: 800 mL Drains: None Estimated Blood Loss: Less than 5 mL Blood Transfusion: No Implants: * No implants in log * Specimens: * No specimens in log * Disposition: awakened from anesthesia, extubated and taken to the recovery room in a stable condition, having suffered no apparent untoward event. Condition: stable Radha Gay MD Date: 05/19/2025 Cc: Hemanth Wolfe MD * Case Coordination-Payor Communication - Jia Waterman RN - 05/19/2025 8:16 AM EDT Continued Stay Review Date: 05/18/2025 Clinical Update: Pt is distended, but non-tender. Tolerated NG tube placement. Surgical consult. Plan - plan for OR tomorrow, 05/19 for open diverting ostomy creation - manager data for marking - general surgery team will obtain consent - Keep NPO, IVF - eliquis held, transition to heparin gtt, will need hold prior to OR - NGT-LWS, KUB ordered to confirm placement - replete electrolytes to maintain K > 4, Mg > 2 - transition PO meds to IV - remainder of care per primary team Vitals: Vitals: 05/17/25 2157 05/17/25 2212 05/18/25 0449 05/18/25 0617 BP: 130/80 (S) (!) 144/72 132/74 Pulse: 80 85 92 84 Resp: 16 18 18 18 Temp: 97.4 ??F (36.3 ??C) 98.3 ??F (36.8 ??C) 97 ??F (36.1 ??C) 97.1 ??F (36.2 ??C) SpO2: 98% 99% 98% 95% 05/18/25 0700 05/18/25 1331 05/18/25 2000 05/19/25 0610 BP: 126/74 132/76 133/82 131/82 Pulse: 84 88 83 84 Resp: 18 18 17 18 Temp: 98 ??F (36.7 ??C) 98.2 ??F (36.8 ??C) 98.3 ??F (36.8 ??C) 97.5 ??F (36.4 ??C) SpO2: 98% 96% 95% 96% Meds/Treatments: Scheduled medications 05/18/25 8:12 AM As needed medications: amLODIPine, 5 mg, Oral, Nightly apixaban, 5 mg, Oral, Q12H RACHEL clonazePAM, 1 mg, Oral, Nightly lamoTRIgine, 300 mg, Oral, Daily methylphenidate, 18 mg, Oral, Daily metoPROLOL SUCCINATE, 50 mg, Oral, Daily risperiDONE, 1 mg, Oral, Nightly senna-docusate, 2 tablet, Oral, Nightly PRN Medications[]Expand by Default bisacodyl HYDROmorphone HYDROmorphone HYDROmorphone lactulose naloxone ondansetron Infusions Meds lactated ringers, 100 mL/hr, Last Rate: 100 mL/hr (05/18/25 0110) Labs/Diagnostics: Latest Reference Range & Units 05/18/25 09:04 05/18/25 17:45 White Blood Cell Count 4.0 - 11.0 Thou/uL 2.1 (L) Red Blood Cell Count 4.50 - 6.20 Mil/uL 3.78 (L) Hemoglobin 13.0 - 17.7 g/dL 11.1 (L) Hematocrit 39.0 - 54.0 % 33.7 (L) MCV 80 - 100 fL 89 MCH 27.0 - 31.0 pg 29.4 MCHC 30.0 - 36.0 g/dL 32.9 RDW 11.5 - 14.5 % 13.9 Platelet Count 150 - 450 Thou/uL 174 MPV 7.5 - 12.5 fL 8.9 Anticoagulant IV HEPARIN, UNFRACTIONATED IV HEPARIN, UNFRACTIONATED Anticoagulant APIXABAN (ELIQUIS) APIXABAN (ELIQUIS) Prothrombin Time 10.0 - 13.5 seconds 25.7 (H) INR 2.2 aPTT 25 - 36 seconds 37 (H) Anti Xa IU/mL >2.00 (HH) >2.00 (HH) (HH): Data is critically high (L): Data is abnormally low (H): Data is abnormally high Abdominal xray: 1. Enteric tube, with the tip and sidehole over the expected location of GE junction/gastric fundus. 2. Multiple air distended loops of small and large bowel, with small bowel measuring up to 5.2 cm. Findings may represent ileus or partial small bowel obstruction. Bed Type: Med/Surg Sign Jia Waterman RN 05/19/2025 8:16 AM Continued Stay Review Date: 05/19/2025 Clinical Update: POD #0 LAPAROSCOPY CREATION OF COLOSTOMY. Plan pre OP: - Diet: N.p.o. - NG tube to continuous low wall suction - Will plan for colostomy creation today in setting of large bowel obstruction - Discussed with oncology yesterday given recent Avastin use, no further interventions required in setting of recent Avastin - Pain control - Nausea control - DVT ppx: SCD, anticoagulation currently on hold for OR - OOB/IS - Strict I's and O's Plan post OP: - NPO, mIVF - NGT lws - DVT: hep gtt - F/u bmp, mag, phos after repletion Vitals: Vitals: 05/17/25 2157 05/17/25 2212 05/18/25 0449 05/18/25 0617 BP: 130/80 (S) (!) 144/72 132/74 Pulse: 80 85 92 84 Resp: 18 Temp: 97.4 ??F (36.3 ??C) 98.3 ??F (36.8 ??C) 97 ??F (36.1 ??C) 97.1 ??F (36.2 ??C) SpO2: 98% 99% 98% 95% 05/18/25 0700 05/18/25 1331 05/18/25 2000 05/19/25 0610 BP: 126/74 132/76 133/82 131/82 Pulse: 84 88 83 84 Resp: 18 18 18 Temp: 98 ??F (36.7 ??C) 98.2 ??F (36.8 ??C) 98.3 ??F (36.8 ??C) 97.5 ??F (36.4 ??C) SpO2: 98% 96% 95% 96% Meds/Treatments: Scheduled Meds: [Provider Held] amLODIPine, 5 mg, Oral, Nightly [Provider Held] apixaban, 5 mg, Oral, Q12H RACHEL clonazePAM, 1 mg, Oral, Nightly lamoTRIgine, 300 mg, Oral, Daily methylphenidate, 18 mg, Oral, Daily [Provider Held] metoPROLOL SUCCINATE, 50 mg, Oral, Daily PANTOprazole, 40 mg, Intravenous, Daily potassium chloride IVPB, 10 mEq, Intravenous, Once Followed by potassium chloride IVPB, 10 mEq, Intravenous, Once Followed by potassium chloride IVPB, 10 mEq, Intravenous, Once Followed by potassium chloride IVPB, 10 mEq, Intravenous, Once POTASSIUM phosphate, 15 mmol, Intravenous, Once risperiDONE, 1 mg, Oral, Nightly Continuous Infusions: lactated ringers, 100 mL/hr [Provider Held] heparin (porcine) IV infusion - thromboembolic/standard/full dose protocol, 15 Units/kg/hr, Last Rate: Stopped (05/18/25 1508) PRN Meds: [Provider Held] heparin (porcine) [Provider Held] heparin (porcine) HYDROmorphone HYDROmorphone HYDROmorphone naloxone ondansetron phenol Labs/Diagnostics: Latest Reference Range & Units 05/19/25 00:02 05/19/25 05:37 White Blood Cell Count 4.0 - 11.0 Thou/uL 1.6 (LL) Red Blood Cell Count 4.50 - 6.20 Mil/uL 3.45 (L) Hemoglobin 13.0 - 17.7 g/dL 10.2 (L) Hematocrit 39.0 - 54.0 % 30.6 (L) MCV 80 - 100 fL 89 MCH 27.0 - 31.0 pg 29.6 MCHC 30.0 - 36.0 g/dL 33.3 RDW 11.5 - 14.5 % 14.0 Platelet Count 150 - 450 Thou/uL 163 MPV 7.5 - 12.5 fL 8.8 Sodium 136 - 145 mmol/L 139 Potassium 3.4 - 5.3 mmol/L 2.9 (L) Chloride 98 - 107 mmol/L 102 CO2, POC 22 - 33 mmol/L 22 Anion Gap 7 - 17 15 BUN 8 - 21 mg/dL 11 Creatinine 0.50 - 1.30 mg/dL 0.45 (L) Bun / Creat Ratio 10.0 - 25.0 Ratio 24 Glucose 65 - 99 mg/dL 89 Calcium 8.7 - 10.5 mg/dL 8.2 (L) Magnesium 1.6 - 2.7 mg/dL 1.7 eGFR >59 >90 Phosphorus 2.7 - 4.5 mg/dL 2.2 (L) Anticoagulant IV HEPARIN, UNFRACTIONATED, BEING HELD IV HEPARIN, UNFRACTIONATED, BEING HELD Anti Xa IU/mL >2.00 (HH) 1.48 (LL): Data is critically low (HH): Data is critically high (L): Data is abnormally low Bed Type: Med/Surg Sign Jia Waterman RN 05/19/2025 8:17 AM Continued Stay Review Date: 05/20/2025 Clinical Update: Patient is now pod#1 s/p loop colostomy formation. NGT removed today. Plan - Diet: npo - mIVF - DVT ppx: start hep gtt - Pain control - Will gravity NGT today - Monitor vitals / strict I&Os - Pulmonary hygiene, IS - OOB and activity as tolerated - Please contact [facility] with any questions Vitals: Vitals: 05/19/25 1215 05/19/25 1254 05/19/25 1351 05/19/25 1538 BP: 118/76 (!) 144/80 (!) 140/80 138/76 Pulse: 80 92 84 81 Resp: 07 12 18 18 Temp: (!) 95.5 ??F (35.3 ??C) (!) 95 ??F (35 ??C) (!) 94.8 ??F (34.9 ??C) SpO2: 93% 99% 97% 99% 05/19/25 1837 05/19/25 2321 05/20/25 0346 05/20/25 0730 BP: 132/76 (!) 144/76 130/70 (!) 140/78 Pulse: 72 73 79 92 Resp: 18 18 18 18 Temp: (!) 94.5 ??F (34.7 ??C) (!) 94.2 ??F (34.6 ??C) 96.9 ??F (36.1 ??C) 97.8 ??F (36.6 ??C) SpO2: 99% 99% 98% 98% Meds/Treatments: Scheduled Meds: acetaminophen, 1,000 mg, Intravenous, Q8H [Provider Held] amLODIPine, 5 mg, Oral, Nightly [Provider Held] apixaban, 5 mg, Oral, Q12H RACHEL chlorhexidine gluconate, , Topical, Daily [Provider Held] clonazePAM, 1 mg, Oral, Nightly [Provider Held] lamoTRIgine, 300 mg, Oral, Daily [Provider Held] methylphenidate, 18 mg, Oral, Daily [Provider Held] metoPROLOL SUCCINATE, 50 mg, Oral, Daily PANTOprazole, 40 mg, Intravenous, Daily [Provider Held] risperiDONE, 1 mg, Oral, Nightly Continuous Infusions: heparin (porcine) IV infusion - thromboembolic/standard/full dose protocol, 15 Units/kg/hr, Last Rate: Stopped (05/18/25 1508) HYDROmorphone, PRN Meds: heparin (porcine) heparin (porcine) naloxone ondansetron phenol Labs/Diagnostics: Latest Reference Range & Units 05/20/25 06:10 White Blood Cell Count 4.0 - 11.0 Thou/uL 2.3 (L) Red Blood Cell Count 4.50 - 6.20 Mil/uL 3.44 (L) Hemoglobin 13.0 - 17.7 g/dL 10.0 (L) Hematocrit 39.0 - 54.0 % 30.3 (L) MCV 80 - 100 fL 88 MCH 27.0 - 31.0 pg 29.1 MCHC 30.0 - 36.0 g/dL 33.0 RDW 11.5 - 14.5 % 14.1 Platelet Count 150 - 450 Thou/uL 194 MPV 7.5 - 12.5 fL 9.0 Sodium 136 - 145 mmol/L 136 Potassium 3.4 - 5.3 mmol/L 3.5 Chloride 98 - 107 mmol/L 101 CO2, POC 22 - 33 mmol/L 21 (L) Anion Gap 7 - 17 14 BUN 8 - 21 mg/dL 6 (L) Creatinine 0.50 - 1.30 mg/dL 0.33 (L) Bun / Creat Ratio 10.0 - 25.0 Ratio 18 Glucose 65 - 99 mg/dL 78 Calcium 8.7 - 10.5 mg/dL 8.3 (L) Magnesium 1.6 - 2.7 mg/dL 1.6 eGFR >59 >90 Phosphorus 2.7 - 4.5 mg/dL 1.7 (L) (L): Data is abnormally low Bed Type: Med/Surg D/C Plan: Ongoing Sign Jia Waterman RN 05/20/2025 8:54 AM * Plan of Care - Lizz Avilez RN - 05/19/2025 5:52 AM EDT Problem: Adult Inpatient Plan of Care Goal: Plan of Care Review Outcome: Progressing 7p-7a. Riana is A/Ox4, VSS on RA. NGT remains intact to LWS, flushed with 60cc. Remains NPO. PRN IVdilaudid was given for abdominal pain 03/04 with good effect. IVF maintained. All safety measures met. Lizz Avilez 05/19/2025 5:52 AM * Plan of Care - Charu Roberts RN - 05/18/2025 8:01 PM EDT Problem: Adult Inpatient Plan of Care Goal: Plan of Care Review Flowsheets (Taken 05/18/20251958) Outcome Evaluation: Riana alert and oriented x4 with complaints of abdominal pain and tenderness. PRN IV dilaudid given with good effect. NG tube placed by surgery team, currently on suction. LR infusing at 100 mL/hr. Plan for OR tomorrow. Remains NPO. Incontinence care provided, all safety precautions maintained. Charu Roberts 05/18/2025 8:01 PM * Assessment & Plan Note - Felipe Limno MD - 05/18/2025 7:54 PM EDT Associated Problem(s): Large bowel obstruction (HCC) General Surgery consulted; recommendations were appreciated NG tube in place IVF with LR at 100 mL an hour As needed IV analgesics and antiemetics Plan for diverting ostomy tomorrow 05/19 * Assessment & Plan Note - Felipe Limon MD - 05/18/2025 7:54 PM EDT Associated Problem(s): Rectal cancer metastasized to liver (HCC) General Surgery consulted; recommendations were appreciated NG tube in place IVF with LR at 100 mL an hour As needed IV analgesics and antiemetics Plan for diverting ostomy tomorrow 05/19 * Assessment & Plan Note - Felipe Limon MD - 05/18/2025 7:54 PM EDT Associated Problem(s): ADHD Holding home methylphenidate 10 mg; as currently patient n.p.o. * Assessment & Plan Note - Felipe Limon MD - 05/18/2025 7:54 PM EDT Associated Problem(s): HTN (hypertension) Currently normotensive Holding home metoprolol 50 mg and amlodipine 5 mg * Assessment & Plan Note - Felipe Limon MD - 05/18/2025 7:54 PM EDT Associated Problem(s): History of pulmonary embolus (PE) Holding home Eliquis Ordered IV heparin, given INR above 2 not started at this time * Assessment & Plan Note - Felipe Limon MD - 05/18/2025 7:54 PM EDT Associated Problem(s): GERD (gastroesophageal reflux disease) Continue IV Protonix 40 mg daily * Assessment & Plan Note - Felipe Limon MD - 05/18/2025 7:54 PM EDT Associated Problem(s): Anxiety Holding home lamotrigine 300 mg, risperidone 1 mg, clonazepam 1 mg as patient currently n.p.o., * Case Coordination-Payor Communication - Codi Tafoya - 05/18/2025 4:16 PM EDT Per State [facility] General Statutes Sec: 38a-226c: Notification of determination communicated within 2business days of receipt of all information necessary to complete the review. Please fax authorization determination to [phone] or call [phone] * Plan of Care - Marcela Lyn DO - 05/18/2025 2:48 PM EDT General Surgery Preoperative Note Preoperative Diagnosis: LBO Procedure: Loop colostomy creation Procedure Date: 05/19/25 Lab Review Lab Results Component Value Date NA 132 (L) 05/17/2025 K 3.5 05/17/2025 CL 95 (L) 05/17/2025 CO2 24 05/17/2025 BUN 12 05/17/2025 CALCIUM 9.0 05/17/2025 Lab Results Component Value Date WBC 2.1 (L) 05/18/2025 HGB 11.1 (L) 05/18/2025 HCT 33.7 (L) 05/18/2025 MCV 89 05/18/2025 PLT 174 05/18/2025 No components found for: PT/PTT Lab Results Component Value Date ALT 10 05/17/2025 AST 21 05/17/2025 ALBUMIN 3.8 05/17/2025 Checklist: [x] NPO at midnight [x] IV fluids while NPO [x] Consent signed [x] OR booked [x] Ostomy marking [x] Check morning labs - ordered [x] Antibiotics OCTOR [x] T&S - 05/17 Heparin drip held now in preparation for OR tomorrow Marcela Lyn DO General Surgery PGY-3 05/18/25 2:48 PM * Plan of Care - JIM Guzman - 05/18/2025 10:47 AM EDT Brief GI plan of care note. Asked to evaluate patient for metastatic rectal cancer with stent in place who presented with LBO. Colorectal Surgery plans noted- plan for diverting ostomy tomorrow. No GI interventions planned. Will sign off. Please [place] [facility] with questions. * Case Coordination-Payor Communication - Jia Waterman RN - 05/18/2025 10:44 AM EDT Admission Note Type: (Inpt/Obsv): Inpatient Date of Admission: 05/17/2025 Admitting Dx: Large bowel obstruction (HCC) [K56.609] PMH: Past Medical History: Diagnosis Date ADHD GERD (gastroesophageal reflux disease) History of pulmonary embolus (PE) Hypertension Rectal cancer (HCC) HPI: 60 y/o male with pmhx of metastatic rectal cancer who had stent placed 03/20/25 and is activelyundergoing chemotherapy with Avastin and Lonsurf (last infusion of Avastin was 05/15/25), presents as a transfer from OSH with LBO. Per patient he has had difficulty tolerating chemotherapy over the past few months and has been hospitalized with similar symptoms recently. He reports he gets distended and nauseous. Per discussion with his , he previously underwent 22 rounds of folfox and foliri (last dose mar 14, 2025, endedup in hospital on mar 16 with abdominal distension, n/v). During that hospital admission, he had a stent placed on March 20, 2025 for which the reports he had some relief of his symptoms and was somewhat back to his baseline for the first time in 16 months. He was then recently switched to Avastin and Lonsurf. His last dose of Avastin was 05/15/25 which completed cycle 1. His plan had been for 16 days off and then to start cycle 2 which is scheduled for May 29. Patient reports after his last dose of chemotherapy, he ended up back in OSH two days ago with distension and nausea. He reports no vomiting. He has had alternating bowel movements of diarrhea and more formed stools. He reports that he continues to pass gas. He has not had any PO intake in the last 2 days. At OSH he had imaging concerning for occlusion of his rectal stent with subsequent LBO. Currently, he is admitted to medicine. He is NPO with IVF. He is leukopenic to 2.2. An NG tube was placed for decompression. Vitals: Vitals: 05/17/25 2157 05/17/25 2212 05/18/25 0449 05/18/25 0617 BP: 130/80 (S) (!) 144/72 132/74 Pulse: 80 85 92 84 Resp: 16 18 18 18 Temp: 97.4 ??F (36.3 ??C) 98.3 ??F (36.8 ??C) 97 ??F (36.1 ??C) 97.1 ??F (36.2 ??C) SpO2: 98% 99% 98% 95% 05/18/25 0700 BP: 126/74 Pulse: 84 Resp: 18 Temp: 98 ??F (36.7 ??C) SpO2: 98% Labs/Diagnostics: Latest Reference Range & Units 05/17/25 22:43 05/17/25 22:45 White Blood Cell Count 4.0 - 11.0 Thou/uL 2.2 (L) Red Blood Cell Count 4.50 - 6.20 Mil/uL 3.87 (L) Hemoglobin 13.0 - 17.7 g/dL 11.3 (L) Hematocrit 39.0 - 54.0 % 33.8 (L) MCV 80 - 100 fL 87 MCH 27.0 - 31.0 pg 29.2 MCHC 30.0 - 36.0 g/dL 33.4 RDW 11.5 - 14.5 % 13.7 Platelet Count 150 - 450 Thou/uL 173 MPV 7.5 - 12.5 fL 9.1 Neutrophils Man % 33 Lymphocytes Man % 57 Abs Lymphocytes Man 1.5 - 4.5 Thou/uL 1.3 (L) Monocytes Man % 7 Abs Monocytes Man 0.2 - 1.5 Thou/uL 0.2 Eosinophils Man % 1 Abs Eosinophils Man 0.0 - 0.7 Thou/uL 0.0 Bands Man % 2 Abs Neutrophils Count (ANC) 2.0 - 7.5 Thou/uL 0.8 (L) Normochromic Present Normocytic Present Sodium 136 - 145 mmol/L 132 (L) Potassium 3.4 - 5.3 mmol/L 3.5 Chloride 98 - 107 mmol/L 95 (L) CO2, POC 22 - 33 mmol/L 24 Anion Gap 7 - 17 13 BUN 8 - 21 mg/dL 12 Creatinine 0.50 - 1.30 mg/dL 0.52 Bun / Creat Ratio 10.0 - 25.0 Ratio 23 Glucose 65 - 99 mg/dL 106 (H) Calcium 8.7 - 10.5 mg/dL 9.0 Magnesium 1.6 - 2.7 mg/dL 1.9 Protein, Total 6.3 - 8.3 g/dL 6.9 Albumin 3.4 - 4.8 g/dL 3.8 Globulin 1.5 - 3.9 g/dL 3.1 A/G Ratio 1.0 - 3.0 Ratio 1.2 eGFR >59 >90 Bilirubin Total 0.2 - 1.0 mg/dL 1.0 Bilirubin Direct 0 - 0.2 mg/dL 0.2 Aspartate Aminotrans (AST/SGOT) 10 - 55 U/L 21 Alanine Aminotrans (ALT) 10 - 55 U/L 10 Alkaline Phosphatase 45 - 128 U/L 85 Phosphorus 2.7 - 4.5 mg/dL 2.7 Anticoagulant NO ANTI COAGULANT MEDS Prothrombin Time 10.0 - 13.5 seconds 25.0 (H) INR 2.2 ABO Rh O POSITIVE Antibody Screen NEGATIVE Specimen Expiration 05/20/2025 (L): Data is abnormally low (H): Data is abnormally high Orders/Treatment Plan: Large bowel obstruction (HCC) Rectal cancer metastasized to liver (HCC) CT at [facility] significant for small and large bowel distention and concern for obstructive rectal stentand hepatic mets and gallbladder hydrops Keep the patient n.p.o. Start patient on IV fluids Surgery consulted Plan per Surgery: - plan for OR, 05/19 for open diverting ostomy creation - Keep NPO, IVF - eliquis held, transition to heparin gtt, will need hold prior to OR - NGT-LWS, KUB ordered to confirm placement - replete electrolytes to maintain K > 4, Mg > 2 - transition PO meds to IV Medications: lactated ringers (LR) infusion Rate: 125 mL/hr Dose: 125 mL/hr Freq: Continuous Route: IV Bed Type: Med/Surg Jia Waterman RN 05/18/2025 10:44 AM * Plan of Care - Rose Mary Healy - 05/18/2025 8:54 AM EDT Initial Case Management Care Plan Note Assessment completed with patient and/or patient's fulfillment representative, medical record review and discussion with clinical team. CC met with the patient using social distancing. Provided a Case Coordination packet with contact information, CC pamphlet and Your Next Step: Care Outside the Hospital brochure to the patient. 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 He was transferred from [facility] for concern for large bowel obstruction in the setting of colonic stent malfunctioning. Planning for NGT placement and surgery possibly later today. He did receive eliquis this morning. He had a carlton placed for retention, but has not had one at home. He has a port. CM met with patient. Obtained his 's contact information and updated EPIC. Patient is a & o, lives with his in [address] [facility]. He ambulates and performs self care independently at baseline, andhas a rollator and shower bench which he uses after chemo days. His assists with the house, meals and transportation. He may benefit from home care or STR post op, but did not address that yet since patient just receiving news about needing ostomy Anticipated transition plan: Home routine, but need to reevaluate needs post op Caregiver/responsible person supports: self/Syeda PCP: Oncologist is Hemanth Wolfe out of [facility] Anticipated transportation: Family Referrals made: None Barriers to discharge: Post op evaluation for DC needs Rose Mary Healy 05/18/2025 8:54 AM * Assessment & Plan Note - Nehemias Mendoza MD - 05/18/2025 12:11 AM EDTAssociated Problem(s): ADHD Will continue home dose methylphenidate 10, not available in the hospital I will order 18 * Assessment & Plan Note - Nehemias Mendoza MD - 05/18/2025 12:11 AM EDTAssociated Problem(s): HTN (hypertension) Continue amlodipine 5 * Assessment & Plan Note - Nehemias Mendoza MD - 05/18/2025 12:11 AM EDTAssociated Problem(s): History of pulmonary embolus (PE) Will continue apixaban * Assessment & Plan Note - Nehemias Mendoza MD - 05/18/2025 12:11 AM EDTAssociated Problem(s): GERD (gastroesophageal reflux disease) Will continue pantoprazole, Home regimen omeprazole 20 * Assessment & Plan Note - Nehemias Mendoza MD - 05/18/2025 12:11 AM EDTAssociated Problem(s): Large bowel obstruction (HCC) CT at [facility] significant for small and large bowel distention and concern for obstructiverectal stent and hepatic mets and gallbladder hydrops Keep the patient n.p.o. Start patient on IV fluid GI consulted by the ED follow recs * Assessment & Plan Note - Nehemias Mendoza MD - 05/18/2025 12:11 AM EDTAssociated Problem(s): Rectal cancer metastasized to liver (HCC) CT at [facility] significant for small and large bowel distention and concern for obstructiverectal stent and hepatic mets and gallbladder hydrops Keep the patient n.p.o. Start patient on IV fluid GI consulted by the ED follow recs * ED Update - Fabien Sullivan MD - 05/17/2025 10:39 PM EDT ED UPDATE: 10:39 PM I had a conversation with general surgery, patient himself has stage IV rectal cancer with a rectalmass that is considered inoperable from his previous oncologist at [facility], Dr. Hemanth Wolfe. Because this rectal mass is inoperable, and the colonic stent is considered palliative, and the patient is understanding that he has a terminal illness and understands that he likely is going to passaway from this illness, general surgery and myself do not believe there is any utility for general surgery consultation at this time given that surgery would not be offered to him anyway. I think this is reasonable, we will admit to hospital medicine with GI consultation. * ED Front end provider - Luna Garcia APRN - 05/17/2025 9:58 PM EDT HPI: History of stage IV rectal colon cancer with mets on chemo stent placed in February went to hospital with nausea vomiting abdominal distention CT showing malfunction of stent and SBO. given K, zosyn, vanco, ms, dilaudid, zofran. Vital signs reviewed Constitutional:Mental status alert and appropriate ENT:Patient speaking in normal voice, handling secretions without problems. MDM: documented in this encounter Plan of Treatment Pending Results Name Type Priority Associated Diagnoses Date /Time Body Fluid Culture (includes Aerobic, Anaerobic and Gram Stain) Microbiology Routine 05/24/2025 4:41 PM EDT Scheduled Referrals Name Type Priority Associated Diagnoses Orde r Schedule Amb Referral to Home Health Outpatient Referral Routine Large bowel obstruction (HCC) Ordered: 05/24/2025 documented as of this encounter Procedures Procedure Name Priority Date/Time Associated Diagnosis Comments POCT GLUCOSE, FINGERSTICK (CHARGE) Routine 05/29/2025 11:55 AM EST HEPARIN ASSAY (ANTI-XA) Routine 05/29/2025 5:[address] ABDOMEN+PELVIS W/CONTRAST STAT 05/28/2025 10:53 AM EST HEPARIN ASSAY (ANTI-XA) Routine 05/28/2025 4:40 AM EST COMPLETE BLOOD COUNT, WITHOUT DIFFERENTIAL Routine 05/28/2025 4:40 AM EST HEPARIN ASSAY (ANTI-XA) Routine 05/27/2025 5:30 AM EST COMPLETE BLOOD COUNT, WITHOUT DIFFERENTIAL Routine 05/27/2025 5:30 AM EST HEPARIN ASSAY (ANTI-XA) Routine 05/27/2025 12:45 AM EDT HEPARIN ASSAY (ANTI-XA) Routine 05/26/2025 6:45 PM EDT PARTIAL THROMBOPLASTIN TIME (PTT) Routine 05/26/2025 11:23 AM EDT PROTIME-INR Routine 05/26/2025 11:23 AM EDT COMPLETE BLOOD COUNT, WITHOUT DIFFERENTIAL Routine 05/26/2025 11:23 AM EDT VANCOMYCIN LEVEL-RANDOM Timed 05/26/2025 9:00 AM EDT COMPLETE BLOOD COUNT, WITHOUT DIFFERENTIAL Routine 05/25/2025 6:30 AM EDT PHOSPHORUS Routine 05/25/2025 6:30 AM EDT MAGNESIUM Routine 05/25/2025 6:30 AM EDT BASIC METABOLIC PANEL Routine 05/25/2025 6:30 AM EDT COMPLETE BLOOD COUNT, WITHOUT DIFFERENTIAL Routine 05/25/2025 6:00 AM EDT BODY FLUID CULTURE (AEROBIC, ANAEROBIC AND GRAM STAIN) Routine 05/24/2025 4:41 PM EDT COMPLETE BLOOD COUNT, WITH DIFFERENTIAL Routine 05/24/2025 1:[address] ABDOMEN+PELVIS W/CONTRAST STAT 05/24/2025 12:33 PM EDT HEPARIN ASSAY (ANTI-XA) Routine 05/23/2025 5:15 AM EDT PHOSPHORUS Routine 05/23/2025 5:15 AM EDT MAGNESIUM Routine 05/23/2025 5:15 AM EDT BASIC METABOLIC PANEL Routine 05/23/2025 5:15 AM EDT ECG 12-LEAD Routine 05/22/2025 5:10 PM EDT ECG 12-LEAD STAT 05/22/2025 5:08 PM EDT BASIC METABOLIC PANEL Routine 05/22/2025 3:35 PM EDT PHOSPHORUS Routine 05/22/2025 7:00 AM EDT MAGNESIUM Routine 05/22/2025 7:00 AM EDT ALBUMIN Routine 05/22/2025 7:00 AM EDT BASIC METABOLIC PANEL Routine 05/22/2025 7:00 AM EDT HEPARIN ASSAY (ANTI-XA) Routine 05/22/2025 3:52 AM EDT PHOSPHORUS Routine 05/22/2025 3:52 AM EDT MAGNESIUM Routine 05/22/2025 3:52 AM EDT BASIC METABOLIC PANEL Routine 05/22/2025 3:52 AM EDT XR CHEST 1 VIEW STAT 05/21/2025 8:54 PM EDT BLOOD CULTURE (HOSP LAB) Routine 05/21/2025 8:36 PM EDT URINALYSIS WITH REFLEX TO MICROSCOPIC Routine 05/21/2025 8:32 PM EDT BLOOD CULTURE (HOSP LAB) Routine 05/21/2025 8:30 PM EDT COMPLETE BLOOD COUNT, WITHOUT DIFFERENTIAL Routine 05/21/2025 8:24 PM EDT PHOSPHORUS Routine 05/21/2025 4:45 PM EDT MAGNESIUM Routine 05/21/2025 4:45 PM EDT BASIC METABOLIC PANEL Routine 05/21/2025 4:45 PM EDT HEPARIN ASSAY (ANTI-XA) Routine 05/21/2025 5:30 AM EDT PHOSPHORUS Routine 05/21/2025 5:30 AM EDT MAGNESIUM Routine 05/21/2025 5:30 AM EDT BASIC METABOLIC PANEL Routine 05/21/2025 5:30 AM EDT HEPARIN ASSAY (ANTI-XA) Routine 05/20/2025 11:30 PM EDT HEPARIN ASSAY (ANTI-XA) Routine 05/20/2025 5:44 PM EDT PARTIAL THROMBOPLASTIN TIME (PTT) Routine 05/20/2025 10:48 AM EDT PROTIME-INR Routine 05/20/2025 10:48 AM EDT HEPARIN ASSAY (ANTI-XA) Routine 05/20/2025 10:48 AM EDT COMPLETE BLOOD COUNT, WITHOUT DIFFERENTIAL Routine 05/20/2025 6:10 AM EDT PHOSPHORUS Routine 05/20/2025 6:10 AM EDT MAGNESIUM Routine 05/20/2025 6:10 AM EDT BASIC METABOLIC PANEL Routine 05/20/2025 6:10 AM EDT PHOSPHORUS Routine 05/19/2025 4:21 PM EDT MAGNESIUM Routine 05/19/2025 4:21 PM EDT BASIC METABOLIC PANEL Routine 05/19/2025 4:21 PM EDT HEPARIN ASSAY (ANTI-XA) Routine 05/19/2025 3:42 PM EDT POTASSIUM Routine 05/19/2025 11:13 AM EDT POCT GLUCOSE, FINGERSTICK (CHARGE) Routine 05/19/2025 11:04 AM EDT CREATION COLOSTOMY 05/19/2025 8: 30 AM EDT Large bowel obstruction (HCC) HEPARIN ASSAY (ANTI-XA) Routine 05/19/2025 5:37 AM EDT COMPLETE BLOOD COUNT, WITHOUT DIFFERENTIAL Routine 05/19/2025 5:37 AM EDT PHOSPHORUS Routine 05/19/2025 5:37 AM EDT MAGNESIUM Routine 05/19/2025 5:37 AM EDT BASIC METABOLIC PANEL Routine 05/19/2025 5:37 AM EDT HEPARIN ASSAY (ANTI-XA) Routine 05/19/2025 12:02 AM EDT HEPARIN ASSAY (ANTI-XA) Routine 05/18/2025 5:45 PM EDT PREPARE RBC'S Routine 05/18/2025 3:24 PM EDT XR ABDOMEN 1 VIEW-PORTABLE Routine 05/18/2025 10:00 AM EDT PARTIAL THROMBOPLASTIN TIME (PTT) Routine 05/18/2025 9:04 AM EDT PROTIME-INR Routine 05/18/2025 9:04 AM EDT HEPARIN ASSAY (ANTI-XA) Routine 05/18/2025 9:04 AM EDT COMPLETE BLOOD COUNT, WITHOUT DIFFERENTIAL Routine 05/18/2025 9:04 AM EDT COMPLETE BLOOD COUNT, WITH DIFFERENTIAL STAT 05/17/2025 10:45 PM EDT PROTIME-INR STAT 05/17/2025 10:45 PM EDT PHOSPHORUS STAT 05/17/2025 10:45 PM EDT MAGNESIUM STAT 05/17/2025 10:45 PM EDT HEPATIC FUNCTION PANEL STAT 10:45 PM EDT BASIC METABOLIC PANEL STAT 05/17/2025 10:45 PM EDT TYPE AND SCREEN STAT 05/17/2025 10:43 PM EDT documented in this encounter Results * (ABNORMAL) POCT Glucose, Fingerstick (05/29/2025 11:55 AM EST) POC Glucose 131(H) 65 - 99 mg/dL 05/29/2025 11:57 AM EST Blood specimen / Unknown 05/29/2025 11:55 AM EST 05/29/2025 11:57 AM EST Fabien Sullivan MD POINT OF CARE TEST ORDERABLES Fi nal Result HOSPITAL LAB See Below * Heparin Assay (Anti-Xa) (05/29/2025 5:31 AM EST) Anti Xa 0.15 IU/mL 05/29/2025 7:53 AM EST Comment: (NOTE) Heparin Thromboembolic/Standard/Full Dose Protocol: Therapeutic Range: Age 18+: 0.30 - 0.70 IU/mL Age 0 - 17: 0.35 - 0.70 IU/mL Heparin Cardiac/Low Dose Protocol: Therapeutic Range: 0.30 - 0.50 IU/mL Low Molecular Weight Heparin: Therapeutic Range: Age 18+: 0.50 - 1.09 IU/mL for twice daily dosing (or adjusted to daily for poor renal function) Age 18+: 1.00 - 2.00 IU/mL for once daily dosing Age 0-17: 0.50 - 1.00 IU/mL Anticoagulant IV HEPARIN, UNFRACTIONATED 05/29/2025 5:02 AM EST Blood Blood specimen / Unknown 05/29/2025 5:31 AM EST 05/29/2025 7:13 AM EST Radha Gay MD LAB BLOOD ORDERABLES Final Result Performing Organization Address City/State/[facility] Co de Phone Number [address] [address], [address] [address] * CT Abdomen+pelvis w/contrast (05/28/2025 10:53 AM EST) Anatomical Region Laterality Modality Abdomen, Pelvis Computed Tomogra phy 05/28/2025 10:3 1 AM EST Impressions 05/28/2025 4:56 PM EST 1. Status post loop colostomy in the left lower quadrant with mild interval decrease in the parastomal soft tissue stranding and gas. No drainable fluid collection. 2. Persistent mild dilation of the small bowel with multiple air-fluid levels and no transition point visualized. Findings may represent ileus versus partial small bowel obstruction. 3. Persistent circumferential wall thickening of the rectosigmoid colon. 4. Persistently dilated gallbladder with no evidence of radiopaque gallstones, gallbladder wall thickening, or obvious pericholecystic inflammatory changes. 5. Partially visualized dilation of the aortic root and ascending aorta, with maximal diameter of 4.3 cm at the sinuses of Valsalva and 4.1 cm and the visualized ascending segment. 6. Prostatomegaly. Fleischner guidelines were followed. Narrative 05/28/2025 4:56 PM EST EXAMINATION: CT ABDOMEN AND PELVIS WITH CONTRAST CLINICAL INFORMATION: assess intraabdominal or abdominal wall fluid collection. COMPARISON: CT abdomen/pelvis dated 05/24/2025 TECHNIQUE: Multidetector volumetric imaging was performed from the lung bases to the pubic symphysis following the administration of: Oral contrast: No Intravenous contrast: 100 mL Omnipaque 350 No contrast reaction reported. Sagittal and coronal reformatted images were obtained on the technologist's workstation. This CT examination was performed using dose optimization techniques as appropriate, variously including the following: *Automated exposure control *Adjustment of mA and/or kV according to patient size (this includes techniques or standardized protocols for targeted exams where dose is matched to indication/reason for exam; i.e. extremities or head) *Use of iterative reconstruction technique Total exam dose-length product 426.95 mGy-cm. FINDINGS: VISUALIZED CHEST: Partially visualized dilation of the aortic root and ascending aorta, with maximal diameter of 4.3 cm at the sinuses of Valsalva and 4.1 cm and the visualized ascending segment. Partially visualized central line with tip terminating in the right atrium. LIVER, GALLBLADDER, AND BILIARY TREE: Stable scattered hypodense lesions, for example in 1.6 cm lesion in the right hepatic lobe. No new focal lesion. No biliary ductal dilatation is present. The gallbladder is persistently dilated with no evidence of radiopaque gallstones, gallbladder wall thickening, or obvious pericholecystic inflammatory changes. PANCREAS: Normal; no mass or surrounding fluid. SPLEEN: Normal size. No focal lesion. ADRENAL GLANDS: Normal; no mass. KIDNEYS AND URETERS: The kidneys are normal in size, shape, and attenuation. No hydronephrosis, hydroureter, or calculi. GASTROINTESTINAL TRACT: Redemonstration of Loop colostomy located in the left lower quadrant. Persistent circumferential wall thickening of the rectosigmoid colon. Colonic stent is in similar position and is located within the rectum. Persistently mildly dilated small bowel, with multiple air-fluid levels and no transition point visualized. Normal appendix. LYMPHOVASCULAR STRUCTURES: Stable enlarged claudia hepatic lymph node measures 2.2 x 1.7 cm (601:36). No lymphadenopathy. The aorta is normal in caliber. BLADDER: Persistent moderate circumferential wall thickening and containing a small foci of intraluminal air, which may be due to instrumentation PELVIC VISCERA: Enlarged prostate measures 5.2 cm in transverse. ABDOMINAL WALL: Colostomy in the left lower quadrant, as above. Mild decrease in the peristomal soft tissue stranding. Decrease in the size and number of foci of air in the anterior abdominal wall. No drainable fluid collection. OSSEOUS STRUCTURES: Mild degenerative changes of the spine. No destructive osseous lesions. Procedure Note Radha Barahona MD - 05/28/2025 EXAMINATION: CT ABDOMEN AND PELVIS WITH CONTRAST CLINICAL INFORMATION: assess intraabdominal or abdominal wall fluid collection. COMPARISON: CT abdomen/pelvis dated 05/24/2025 TECHNIQUE: Multidetector volumetric imaging was performed from the lung bases to the pubic symphysis following the administration of: Oral contrast: No Intravenous contrast: 100 mL Omnipaque 350 No contrast reaction reported. Sagittal and coronal reformatted images were obtained on the technologist's workstation. This CT examination was performed using dose optimization techniques as appropriate, variously including the following: *Automated exposure control *Adjustment of mA and/or kV according to patient size (this includes techniques or standardized protocols for targeted exams where dose is matched to indication/reason for exam; i.e. extremities or head) *Use of iterative reconstruction technique Total exam dose-length product 426.95 mGy-cm. FINDINGS: VISUALIZED CHEST: Partially visualized dilation of the aortic root and ascending aorta, with maximal diameter of 4.3 cm at the sinuses of Valsalva and 4.1 cm and the visualized ascending segment. Partially visualized central line with tip terminating in the right atrium. LIVER, GALLBLADDER, AND BILIARY TREE: Stable scattered hypodense lesions, for example in 1.6 cm lesion in the right hepatic lobe. No new focal lesion. No biliary ductal dilatation is present. The gallbladder is persistently dilated with no evidence of radiopaque gallstones, gallbladder wall thickening, or obvious pericholecystic inflammatory changes. PANCREAS: Normal; no mass or surrounding fluid. SPLEEN: Normal size. No focal lesion. ADRENAL GLANDS: Normal; no mass. KIDNEYS AND URETERS: The kidneys are normal in size, shape, and attenuation. No hydronephrosis, hydroureter, or calculi. GASTROINTESTINAL TRACT: Redemonstration of Loop colostomy located in the left lower quadrant. Persistent circumferential wall thickening of the rectosigmoid colon. Colonic stent is in similar position and is located within the rectum. Persistently mildly dilated small bowel, with multiple air-fluid levels and no transition point visualized. Normal appendix. LYMPHOVASCULAR STRUCTURES: Stable enlarged claudia hepatic lymph node measures 2.2 x 1.7 cm (601:36). No lymphadenopathy. The aorta is normal in caliber. BLADDER: Persistent moderate circumferential wall thickening and containing a small foci of intraluminal air, which may be due to instrumentation PELVIC VISCERA: Enlarged prostate measures 5.2 cm in transverse. ABDOMINAL WALL: Colostomy in the left lower quadrant, as above. Mild decrease in the peristomal soft tissue stranding. Decrease in the size and number of foci of air in the anterior abdominal wall. No drainable fluid collection. OSSEOUS STRUCTURES: Mild degenerative changes of the spine. No destructive osseous lesions. IMPRESSION: 1. Status post loop colostomy in the left lower quadrant with mild interval decrease in the parastomal soft tissue stranding and gas. No drainable fluid collection. 2. Persistent mild dilation of the small bowel with multiple air-fluid levels and no transition point visualized. Findings may represent ileus versus partial small bowel obstruction. 3. Persistent circumferential wall thickening of the rectosigmoid colon. 4. Persistently dilated gallbladder with no evidence of radiopaque gallstones, gallbladder wall thickening, or obvious pericholecystic inflammatory changes. 5. Partially visualized dilation of the aortic root and ascending aorta, with maximal diameter of 4.3 cm at the sinuses of Valsalva and 4.1 cm and the visualized ascending segment. 6. Prostatomegaly. Fleischner guidelines were followed. us Radha Gay MD IMG CT ORDERABLES Final Re sult * (ABNORMAL) Complete Blood Count WITHOUT Differential - Early AM (05/28/2025 4:40 AM EST) White Blood Cell Count 3.7(L) 4.0 - 11.0 Thou/uL 05/28/2025 5:18 AM [facility] Platelet Count 340 150 - 450 Thou/uL 05/28/2025 5:18 AM [facility] Hemoglobin 9.6(L) 13.0 - 17.7 g/dL 05/28/2025 5:18 AM [facility] Hematocrit 30.4(L) 39.0 - 54.0 % 05/28/2025 5:18 AM [facility] Red Blood Cell Count 3.26(L) 4.50 - 6.20 Mil/uL 05/28/2025 5:18 AM [facility] MCV 93 80 - 100 fL 05/28/2025 5:18 AM [facility] MCH 29.4 27.0 - 31.0 pg 05/28/2025 5:18 AM [facility] MCHC 31.6 30.0 - 36.0 g/dL 05/28/2025 5:18 AM [facility] RDW 15.7(H) 11.5 - 14.5 % 05/28/2025 5:18 AM [facility] MPV 8.7 7.5 - 12.5 fL 05/28/2025 5:18 AM [facility] Blood Blood specimen / Unknown 05/28/2025 4:40 AM EST 05/28/2025 5:05 AM EST Brandee Orellana MD LAB BLOOD ORDERABLES Final Result Performing Organization Address City/[facility]/[place] [address], [place] [address] * Heparin Assay (Anti-Xa) (05/28/2025 4:40 AM EST) Anti Xa 0.32 IU/mL 05/28/2025 5:21 AM [facility] Comment: (NOTE) Heparin Thromboembolic/Standard/Full Dose Protocol: Therapeutic Range: Age 18+: 0.30 - 0.70 IU/mL Age 0 - 17: 0.35 - 0.70 IU/mL Heparin Cardiac/Low Dose Protocol: Therapeutic Range: 0.30 - 0.50 IU/mL Low Molecular Weight Heparin: Therapeutic Range: Age 18+: 0.50 - 1.09 IU/mL for twice daily dosing (or adjusted to daily for poor renal function) Age 18+: 1.00 - 2.00 IU/mL for once daily dosing Age 0-17: 0.50 - 1.00 IU/mL Anticoagulant IV HEPARIN, UNFRACTIONATED 05/28/2025 3:39 AM [facility] Blood Blood specimen / Unknown 05/28/2025 4:40 AM EST 05/28/2025 5:05 AM EST Radha Gay MD LAB BLOOD ORDERABLES Final Result Performing Organization Address City/[facility]/[place] [address], [place] [address] * Heparin Assay (Anti-Xa) (05/27/2025 5:30 AM EST) Anti Xa 0.36 IU/mL 05/27/2025 6:31 AM [facility] Comment: (NOTE) Heparin Thromboembolic/Standard/Full Dose Protocol: Therapeutic Range: Age 18+: 0.30 - 0.70 IU/mL Age 0 - 17: 0.35 - 0.70 IU/mL Heparin Cardiac/Low Dose Protocol: Therapeutic Range: 0.30 - 0.50 IU/mL Low Molecular Weight Heparin: Therapeutic Range: Age 18+: 0.50 - 1.09 IU/mL for twice daily dosing (or adjusted to daily for poor renal function) Age 18+: 1.00 - 2.00 IU/mL for once daily dosing Age 0-17: 0.50 - 1.00 IU/mL Anticoagulant IV HEPARIN, UNFRACTIONATED 05/27/2025 3:05 AM [facility] Blood Blood specimen / Unknown 05/27/2025 5:30 AM EST 05/27/2025 6:16 AM EST us Radha Gay MD LAB BLOOD [place]ABLES [place] [address], [place] [address] * (ABNORMAL) COMPLETE BLOOD COUNT, WITHOUT DIFFERENTIAL (05/27/2025 5:30 AM EST) White Blood Cell Count 3.4(L) 4.0 - 11.0 Thou/uL 05/27/2025 6:41 AM [facility] Platelet Count 367 150 - 450 Thou/uL 05/27/2025 6:41 AM [facility] Hemoglobin 9.8(L) 13.0 - 17.7 g/dL 05/27/2025 6:41 AM [facility] Hematocrit 31.0(L) 39.0 - 54.0 % 05/27/2025 6:41 AM [facility] Red Blood Cell Count 3.34(L) 4.50 - 6.20 Mil/uL 05/27/2025 6:41 AM [facility] MCV 93 80 - 100 fL 05/27/2025 6:41 AM [facility] MCH 29.3 27.0 - 31.0 pg 05/27/2025 6:41 AM [facility] MCHC 31.6 30.0 - 36.0 g/dL 05/27/2025 6:41 AM [facility] RDW 15.6(H) 11.5 - 14.5 % 05/27/2025 6:41 AM [facility] MPV 9.0 7.5 - 12.5 fL 05/27/2025 6:41 AM [facility] Blood Blood specimen / Unknown 05/27/2025 5:30 AM EST 05/27/2025 6:16 AM EST Nitish Nunez MD LAB BLOOD ORDERABLES [place] [address], [place] [address] * Heparin Assay (Anti-Xa) (05/27/2025 12:45 AM EDT) Anti Xa 0.34 IU/mL 05/27/2025 1:10 AM EDT Comment: (NOTE) Heparin Thromboembolic/Standard/Full Dose Protocol: Therapeutic Range: Age 18+: 0.30 - 0.70 IU/mL Age 0 - 17: 0.35 - 0.70 IU/mL Heparin Cardiac/Low Dose Protocol: Therapeutic Range: 0.30 - 0.50 IU/mL Low Molecular Weight Heparin: Therapeutic Range: Age 18+: 0.50 - 1.09 IU/mL for twice daily dosing (or adjusted to daily for poor renal function) Age 18+: 1.00 - 2.00 IU/mL for once daily dosing Age 0-17: 0.50 - 1.00 IU/mL Anticoagulant IV HEPARIN, UNFRACTIONATED 05/27/2025 12:35 AM EDT Blood Blood specimen / Unknown 05/27/2025 12:45 AM EDT 05/27/2025 12:57 AM EDT Radha Gay MD LAB BLOOD ORDERABLES Final Result [address] [address], [address] [address] * Heparin Assay (Anti-Xa) (05/26/2025 6:45 PM EDT) Anti Xa 0.33 IU/mL 05/26/2025 7:13 PM EDT Comment: (NOTE) Heparin Thromboembolic/Standard/Full Dose Protocol: Therapeutic Range: Age 18+: 0.30 - 0.70 IU/mL Age 0 - 17: 0.35 - 0.70 IU/mL Heparin Cardiac/Low Dose Protocol: Therapeutic Range: 0.30 - 0.50 IU/mL Low Molecular Weight Heparin: Therapeutic Range: Age 18+: 0.50 - 1.09 IU/mL for twice daily dosing (or adjusted to daily for poor renal function) Age 18+: 1.00 - 2.00 IU/mL for once daily dosing Age 0-17: 0.50 - 1.00 IU/mL Anticoagulant IV HEPARIN, UNFRACTIONATED 05/26/2025 6:21 PM EDT Blood Blood specimen / Unknown 05/26/2025 6:45 PM EDT 05/26/2025 7:00 PM EDT Radha Gay MD LAB BLOOD ORDERABLES Final Result [address] [address], [address] [address] * Partial Thromboplastin Time (PTT) (05/26/2025 11:23 AM EDT) Anticoagulant IV HEPARIN, UNFRACTIONATED 05/26/2025 11:23 AM EDT Partial Thromboplastin Time (PTT) 35 25 - 36 seconds 05/26/2025 12:12 PM EDT Blood Blood specimen / Unknown 05/26/2025 11:23 AM EDT 05/26/2025 11:49 AM EDT Roselia Walters MD LAB BLOOD [place] [address], [place] [address] * (ABNORMAL) Protime-INR (05/26/2025 11:23 AM EDT) [facility] Anticoagulant IV HEPARIN, UNFRACTIONATED 05/26/2025 11:23 AM EDT Prothrombin Time (PT) 14.0(H) 10.0 - 13.5 seconds 05/26/2025 12:12 PM EDT INR 1.2 05/26/2025 12:12 PM EDT Comment:INR Therapeutic Rang es: Standard dose anticoagulant 2.0 to 3.0, High dose anticoagulant 2.5-3.5. Blood Blood specimen / Unknown 05/26/2025 11:23 AM EDT 05/26/2025 11:49 AM EDT Roselia Walters MD LAB BLOOD ORDERABLES Final Result [address] [address], [address] [address] * (ABNORMAL) Complete Blood Count WITHOUT Differential (05/26/2025 11:23 AM EDT) [facility] White Blood Cell Count 3.8(L) 4.0 - 11.0 Thou/uL 05/26/2025 12:03 PM EDT Platelet Count 336 150 - 450 Thou/uL 05/26/2025 12:03 PM EDT Hemoglobin 10.5(L) 13.0 - 17.7 g/dL 05/26/2025 12:03 PM EDT Hematocrit 33.3(L) 39.0 - 54.0 % 05/26/2025 12:03 PM EDT Red Blood Cell Count 3.65(L) 4.50 - 6.20 Mil/uL 05/26/2025 12:03 PM EDT MCV 91 80 - 100 fL 05/26/2025 12:03 PM EDT MCH 28.8 27.0 - 31.0 pg 05/26/2025 12:03 PM EDT MCHC 31.5 30.0 - 36.0 g/dL 05/26/2025 12:03 PM EDT RDW 15.4(H) 11.5 - 14.5 % 05/26/2025 12:03 PM EDT MPV 8.5 7.5 - 12.5 fL 05/26/2025 12:03 PM EDT Blood Blood specimen / Unknown 05/26/2025 11:23 AM EDT 05/26/2025 11:49 AM EDT Roselia Walters MD LAB BLOOD [place] [address], [place] [address] * Vancomycin Level, Random (05/26/2025 9:00 AM EDT) Vancomycin, Random 8 mg/L 05/26/2025 10:25 AM EDT Comment:No reference range e stablished for random levels. Time of Last Dose Information not given 05/26/2025 8:24 AM EDT Blood Blood specimen / Unknown 05/26/2025 9:00 AM EDT 05/26/2025 9:25 AM EDT Radha Gay MD LAB BLOOD [place] [address], [place] [address] * Phosphorus (05/25/2025 6:30 AM EDT) Phosphorus 3.0 2.7 - 4.5 mg/dL 05/25/2025 7:45 AM EDT Blood Blood specimen / Unknown 05/25/2025 6:30 AM EDT 05/25/2025 7:04 AM EDT Radha Gay MD LAB BLOOD [place] [address], [place] [address] * Magnesium (05/25/2025 6:30 AM EDT) Magnesium 1.8 1.6 - 2.7 mg/dL 05/25/2025 7:45 AM EDT Blood Blood specimen / Unknown 05/25/2025 6:30 AM EDT 05/25/2025 7:04 AM EDT Radha Gay MD LAB BLOOD [place] [address], [place] [address] * (ABNORMAL) Basic Metabolic Panel (05/25/2025 6:30 AM EDT) Glucose 84 65 - 99 mg/dL 05/25/2025 7:45 AM T Comment:Fasting: <100 mg/dL, Non-Fasting: <200 mg/dL (ADA 2005) Blood Urea Nitrogen (BUN) 4(L) 8 - 21 mg/dL 05/25/2025 7:45 AM T Creatinine 0.44(L) 0.50 - 1.30 mg/dL 05/25/2025 7:45 AM T eGFR >90 >59 05/25/2025 7:45 AM T Comment:CKD-EPI (2020) in mL /min/1.73 sq meters. Sodium 135(L) 136 - 145 mmol/L 05/25/2025 7:45 AM [facility] Potassium 3.5 3.4 - 5.3 mmol/L [facility] Chloride 100 98 - 107 mmol/L 05/25/2025 7:45 AM [facility] CO2 22 22 - 33 mmol/L 05/25/2025 7:45 AM [facility] Anion Gap 13 7 - 17 05/25/2025 7:45 AM [facility] Calcium 8.3(L) 8.7 - 10.5 mg/dL 05/25/2025 7:45 AM [facility] BUN/Creatinine Ratio 9(L) 10.0 - 25.0 Ratio 05/25/2025 7:45 AM [facility] Blood Blood specimen / Unknown 05/25/2025 6:30 AM EDT 05/25/2025 7:04 AM EDT Radha Gay MD LAB BLOOD [place] [address], [place] [address] * (ABNORMAL) Complete Blood Count WITHOUT Differential - STAT (05/25/2025 6:30 AM EDT) White Blood Cell Count 4.4 4.0 - 11.0 Thou/uL 05/25/2025 7:23 AM [facility] Platelet Count 271 150 - 450 Thou/uL 05/25/2025 7:23 AM [facility] Hemoglobin 9.1(L) 13.0 - 17.7 g/dL 05/25/2025 7:23 AM [facility] Hematocrit 28.2(L) 39.0 - 54.0 % 05/25/2025 7:23 AM [facility] Red Blood Cell Count 3.11(L) 4.50 - 6.20 Mil/uL 05/25/2025 7:23 AM [facility] MCV 91 80 - 100 fL 05/25/2025 7:23 AM [facility] MCH 29.3 27.0 - 31.0 pg 05/25/2025 7:23 AM [facility] MCHC 32.3 30.0 - 36.0 g/dL 05/25/2025 7:23 AM [facility] RDW 15.5(H) 11.5 - 14.5 % 05/25/2025 7:23 AM [facility] MPV 8.7 7.5 - 12.5 fL 05/25/2025 7:23 AM [facility] Blood Blood specimen / Unknown 05/25/2025 6:30 AM EDT 05/25/2025 7:04 AM EDT us Radha Gay MD LAB BLOOD [place] [address], [place] [address] * (ABNORMAL) Complete Blood Count WITHOUT Differential - Early AM (05/25/2025 6:00 AM EDT) White Blood Cell Count 4.4 4.0 - 11.0 Thou/uL 05/25/2025 6:39 AM [facility] Platelet Count 279 150 - 450 Thou/uL 05/25/2025 6:39 AM [facility] Hemoglobin 9.0(L) 13.0 - 17.7 g/dL 05/25/2025 6:39 AM [facility] Hematocrit 29.0(L) 39.0 - 54.0 % 05/25/2025 6:39 AM [facility] Red Blood Cell Count 3.17(L) 4.50 - 6.20 Mil/uL 05/25/2025 6:39 AM [facility] MCV 92 80 - 100 fL 05/25/2025 6:39 AM [facility] MCH 28.4 27.0 - 31.0 pg 05/25/2025 6:39 AM [facility] MCHC 31.0 30.0 - 36.0 g/dL 05/25/2025 6:39 AM [facility] RDW 15.7(H) 11.5 - 14.5 % 05/25/2025 6:39 AM EDT MPV 9.2 7.5 - 12.5 fL 05/25/2025 6:39 AM [facility] Blood Blood specimen / Unknown 05/25/2025 6:00 AM EDT 05/25/2025 6:20 AM EDT Radha Gay MD LAB BLOOD [place] [address], [place] [address] * (ABNORMAL) Complete Blood Count, with Differential (05/24/2025 1:30 PM EDT) White Blood Cell Count 5.0 4.0 - 11.0 Thou/uL 05/24/2025 2:05 PM [facility] Platelet Count 255 150 - 450 Thou/uL 05/24/2025 2:05 PM [facility] Hemoglobin 9.8(L) 13.0 - 17.7 g/dL 05/24/2025 2:05 PM [facility] Hematocrit 30.5(L) 39.0 - 54.0 % 05/24/2025 2:05 PM [facility] Red Blood Cell Count 3.36(L) 4.50 - 6.20 Mil/uL 05/24/2025 2:05 PM [facility] MCV 91 80 - 100 fL 05/24/2025 2:05 PM [facility] MCH 29.2 27.0 - 31.0 pg 05/24/2025 2:05 PM [facility] MCHC 32.1 30.0 - 36.0 g/dL 05/24/2025 2:05 PM [facility] RDW 15.5(H) 11.5 - 14.5 % 05/24/2025 2:05 PM [facility] MPV 8.7 7.5 - 12.5 fL 05/24/2025 2:05 PM [facility] Neutrophils Auto 61.8 % 05/24/20 2:38 PM [facility] Comment:Results verified by smear review. Immature Granulocytes 0.4 % 05/24/2025 2:38 PM EDT Lymphocytes Auto 22.1 % 05/24/20 2:38 PM EDT Monocytes Auto 15.5 % 05/24/2025 2:38 PM EDT Eosinophils Auto 0.0 % 05/24/20 2:38 PM EDT Basophils Auto 0.2 % 05/24/2025 2:38 PM EDT Abs Neutrophils Auto 3.08 2.00 - 7.50 Thou/uL 05/24/2025 2:38 PM EDT Abs Immature Granulocytes 0.02 0.00 - 0.10 Thou/uL 05/24/2025 2:38 PM EDT Abs Lymphocytes Auto 1.10(L) 1.50 - 4.50 Thou/uL 05/24/2025 2:38 PM EDT Abs Monocytes Auto 0.77 0.20 - 1.50 Thou/uL 05/24/2025 2:38 PM EDT Abs Eosinophils Auto 0.00 0.00 - 0.70 Thou/uL 05/24/2025 2:38 PM EDT Abs Basophils Auto 0.01 0.00 - 0.20 Thou/uL 05/24/2025 2:38 PM EDT Blood Blood specimen / Unknown 05/24/2025 1:30 PM EDT 05/24/2025 1:56 PM EDT Radha Gay MD LAB BLOOD ORDERABLES Final Result [address] [address], [address] [address] * CT Abdomen+pelvis w/contrast (05/24/2025 12:33 PM EDT) Anatomical Region Laterality Modality Abdomen, Pelvis Computed Tomogra phy 05/24/2025 12:1 9 PM EDT Impressions 05/24/2025 5:11 PM EDT 1. Status post loop colostomy. Regions of inflammatory stranding and poorly organized edema adjacent to the ostomy site measuring approximately 6.8 x 6.7 cm with numerous foci of associated subcutaneous gas. No evidence of rim enhancement to suggest mature abscess however findings may represent phlegmonous changes. Additionally, given prominence of subcutaneous gas, cannot rule out necrotizing infection. Recommend biochemical and clinical correlation for further evaluation. 2. Circumferential bladder wall thickening concerning for cystitis. Multiple foci of gas seen anti-dependently along the anterior bladder wall, no Carlton in place. Cannot rule out gas-forming infection, recommend clinical correlation for recent Carlton placement. 3. Multiple fluid-filled loops of small bowel with mild dilation up to 3.4 cm. No discrete transition point. Findings favor small bowel ileus given recent procedure. 4. Stable circumferential thickening of the rectosigmoid bowel wall with similar degree of presacral edema and prominent mesorectal lymph nodes. Rectal stent remains in unchanged position. 5. Redemonstration of multiple hypodensities within the right hepatic lobe, which appears grossly decreased in size since CT abdomen pelvis from 04/07/2024. Given history of known metastatic cancer status post chemotherapy, findings suggestive of improved metastatic lesions. 6. Small focus of groundglass within the medial aspect of right lower lobe may represent focal atelectasis. Cannot rule out infectious/inflammatory process. 7. Dilated gallbladder. No evidence of acute cholecystitis. 8. Prostatomegaly. This critical result was discussed with LEI SELLER by Dr. Demetra Crawford at 05/24/2025 3:20 PM EDT and it was ascertained that the content and urgency of the report was understood at the time of direct communication. Interpreted by: Munir Rawls MD Bezel Cutter I personally reviewed the images and the resident's preliminary report and AGREE with the report as it is now presented ([email or web address]). Narrative 05/24/2025 5:11 PM EDT EXAMINATION: CT ABDOMEN AND PELVIS WITH CONTRAST CLINICAL INFORMATION: s/p lap loop colostomy for metastatic rectal cancer on Avastin now with redness/tenderness surrounding ostomy site. Concern for collecton, ? dehiscence as he is high risk second to chemo. COMPARISON: CT abdomen and pelvis 05/17/2025 CT abdomen and pelvis 04/07/2024 CT abdomen pelvis 12/07/2023 TECHNIQUE: Multidetector volumetric imaging was performed from the lung bases to the pubic symphysis following the administration of: Oral contrast: No Intravenous contrast: 80 mL Omnipaque 350 No contrast reaction reported. Sagittal and coronal reformatted images were obtained on the technologist's workstation. This CT examination was performed using dose optimization techniques as appropriate, variously including the following: *Automated exposure control *Adjustment of mA and/or kV according to patient size (this includes techniques or standardized protocols for targeted exams where dose is matched to indication/reason for exam; i.e. extremities or head) *Use of iterative reconstruction technique Total exam dose-length product 381 mGy-cm. FINDINGS: VISUALIZED CHEST: Dependent bibasilar atelectasis. Small focus of groundglass in the medial aspect of the right lower lobe. No pleural effusion. Partially visualized right IJ CVC with tip terminating in right atrium. Coronary artery calcifications present. No pericardial effusion. LIVER, GALLBLADDER, AND BILIARY TREE: The liver is normal in size and shape. Redemonstration of multiple hypodensities within the right hepatic lobe, similar to most recent prior and grossly decrease in size from CT abdomen pelvis on 04/07/2024. Similar mild periportal edema. No definitive intraductal biliary dilation. Gallbladder is dilated measuring approximately 5.4 x 11.5 cm. No evidence of radiopaque stones, gallbladder wall thickening, or pericholecystic inflammatory changes. PANCREAS: Unremarkable. SPLEEN: Unremarkable. ADRENAL GLANDS: Unremarkable. KIDNEYS AND URETERS: The kidneys enhance symmetrically. The kidneys are normal in size, shape, and attenuation. No hydronephrosis, hydroureter, or calculi. Subcentimeter in bilateral kidneys which are too small to appropriately characterize and statistically likely benign renal cyst which is not require dedicated follow-up. GASTROINTESTINAL TRACT: Stomach is non-dilated. Multiple fluid-filled and gaseous distended small bowel, some of which are mildly dilated up to 3.4 cm. Status post loop colostomy with ostomy site in the ventral abdominal wall, left and midline. No large pelvic dilation. Similar circumferential thickening of the rectal and proximal sigmoid wall with rectal stent in grossly unchanged position. Grossly similar degree of presacral fat stranding/edema and prominent mesorectal lymph nodes as prior CT abdomen pelvis from 05/14/2025. Scattered colonic diverticulosis without evidence of acute diverticulitis. Appendix is unremarkable. ABDOMINAL WALL:Inflammatory stranding surrounds the ostomy site with an area of poorly organized edema measuring approximately 6.8 x 6.7 cm and numerous foci of associated subcutaneous gas tracking superiorly in the ventral soft tissues. No definitive rim enhancing collection. No definitive discontinuation of the ostomy [place] however evaluation limited in the absence of contrast. LYMPHOVASCULAR STRUCTURES: No bulky lymphadenopathy. Similar prominence of mesorectal lymph nodes. The aorta is normal in caliber. Mild aortoiliac atherosclerotic disease. BLADDER: Circumferential bladder wall thickening with multiple foci of gas present anti-dependently along the anterior bladder wall. Questionable loss of fat plane between the thickened rectosigmoid colon and posterior bladder wall (series 602, image 77). No definitive wall disruption or fistulization. PELVIC VISCERA: Prostatomegaly measuring approximately centimeters in transverse diameter. OSSEOUS STRUCTURES: No acute or suspicious osseous abnormality. PERITONEAL/RETROPERITONEAL: Grossly similar degree of presacral edema. No mass, focal thickening, or pneumoperitoneum. Procedure Note Carlo Samaniego MD - 05/24/2025 EXAMINATION: CT ABDOMEN AND PELVIS WITH CONTRAST CLINICAL INFORMATION: s/p lap loop colostomy for metastatic rectal cancer on Avastin now with redness/tenderness surrounding ostomy site. Concern for collecton, ? dehiscence as he is high risk second to chemo. COMPARISON: CT abdomen and pelvis 05/17/2025 CT abdomen and pelvis 04/07/2024 CT abdomen pelvis 12/07/2023 TECHNIQUE: Multidetector volumetric imaging was performed from the lung bases to the pubic symphysis following the administration of: Oral contrast: No Intravenous contrast: 80 mL Omnipaque 350 No contrast reaction reported. Sagittal and coronal reformatted images were obtained on the technologist's workstation. This CT examination was performed using dose optimization techniques as appropriate, variously including the following: *Automated exposure control *Adjustment of mA and/or kV according to patient size (this includes techniques or standardized protocols for targeted exams where dose is matched to indication/reason for exam; i.e. extremities or head) *Use of iterative reconstruction technique Total exam dose-length product 381 mGy-cm. FINDINGS: VISUALIZED CHEST: Dependent bibasilar atelectasis. Small focus of groundglass in the medial aspect of the right lower lobe. No pleural effusion. Partially visualized right IJ CVC with tip terminating in right atrium. Coronary artery calcifications present. No pericardial effusion. LIVER, GALLBLADDER, AND BILIARY TREE: The liver is normal in size and shape. Redemonstration of multiple hypodensities within the right hepatic lobe, similar to most recent prior and grossly decrease in size from CT abdomen pelvis on 04/07/2024. Similar mild periportal edema. No definitive intraductal biliary dilation. Gallbladder is dilated measuring approximately 5.4 x 11.5 cm. No evidence of radiopaque stones, gallbladder wall thickening, or pericholecystic inflammatory changes. PANCREAS: Unremarkable. SPLEEN: Unremarkable. ADRENAL GLANDS: Unremarkable. KIDNEYS AND URETERS: The kidneys enhance symmetrically. The kidneys are normal in size, shape, and attenuation. No hydronephrosis, hydroureter, or calculi. Subcentimeter in bilateral kidneys which are too small to appropriately characterize and statistically likely benign renal cyst which is not require dedicated follow-up. GASTROINTESTINAL TRACT: Stomach is non-dilated. Multiple fluid-filled and gaseous distended small bowel, some of which are mildly dilated up to 3.4 cm. Status post loop colostomy with ostomy site in the ventral abdominal wall, left and midline. No large pelvic dilation. Similar circumferential thickening of the rectal and proximal sigmoid wall with rectal stent in grossly unchanged position. Grossly similar degree of presacral fat stranding/edema and prominent mesorectal lymph nodes as prior CT abdomen pelvis from 05/14/2025. Scattered colonic diverticulosis without evidence of acute diverticulitis. Appendix is unremarkable. ABDOMINAL WALL:Inflammatory stranding surrounds the ostomy site with an area of poorly organized edema measuring approximately 6.8 x 6.7 cm and numerous foci of associated subcutaneous gas tracking superiorly in the ventral soft tissues. No definitive rim enhancing collection. No definitive discontinuation of the ostomy [place] however evaluation limited in the absence of contrast. LYMPHOVASCULAR STRUCTURES: No bulky lymphadenopathy. Similar prominence of mesorectal lymph nodes. The aorta is normal in caliber. Mild aortoiliac atherosclerotic disease. BLADDER: Circumferential bladder wall thickening with multiple foci of gas present anti-dependently along the anterior bladder wall. Questionable loss of fat plane between the thickened rectosigmoid colon and posterior bladder wall (series 602, image 77). No definitive wall disruption or fistulization. PELVIC VISCERA: Prostatomegaly measuring approximately centimeters in transverse diameter. OSSEOUS STRUCTURES: No acute or suspicious osseous abnormality. PERITONEAL/RETROPERITONEAL: Grossly similar degree of presacral edema. No mass, focal thickening, or pneumoperitoneum. IMPRESSION: 1. Status post loop colostomy. Regions of inflammatory stranding and poorly organized edema adjacent to the ostomy site measuring approximately 6.8 x 6.7 cm with numerous foci of associated subcutaneous gas. No evidence of rim enhancement to suggest mature abscess however findings may represent phlegmonous changes. Additionally, given prominence of subcutaneous gas, cannot rule out necrotizing infection. Recommend biochemical and clinical correlation for further evaluation. 2. Circumferential bladder wall thickening concerning for cystitis. Multiple foci of gas seen anti-dependently along the anterior bladder wall, no Carlton in place. Cannot rule out gas-forming infection, recommend clinical correlation for recent Carlton placement. 3. Multiple fluid-filled loops of small bowel with mild dilation up to 3.4 cm. No discrete transition point. Findings favor small bowel ileus given recent procedure. 4. Stable circumferential thickening of the rectosigmoid bowel wall with similar degree of presacral edema and prominent mesorectal lymph nodes. Rectal stent remains in unchanged position. 5. Redemonstration of multiple hypodensities within the right hepatic lobe, which appears grossly decreased in size since CT abdomen pelvis from 04/07/2024. Given history of known metastatic cancer status post chemotherapy, findings suggestive of improved metastatic lesions. 6. Small focus of groundglass within the medial aspect of right lower lobe may represent focal atelectasis. Cannot rule out infectious/inflammatory process. 7. Dilated gallbladder. No evidence of acute cholecystitis. 8. Prostatomegaly. This critical result was discussed with LEI SELLER by Dr. Demetra Crawford at 05/24/2025 3:20 PM EDT and it was ascertained that the content and urgency of the report was understood at the time of direct communication. Interpreted by: Munir Rawls MD Bezel Cutter I personally reviewed the images and the resident's preliminary report and AGREE with the report as it is now presented ([email or web address]). Demetra Fernández LEI SELLER IMG CT ORDERABLES Final Result * Phosphorus (05/23/2025 5:15 AM EDT) Phosphorus 2.7 2.7 - 4.5 mg/dL 05/23/2025 5:57 AM EDT Blood Blood specimen / Unknown 05/23/2025 5:15 AM EDT 05/23/2025 5:30 AM EDT us Radha Gay MD LAB BLOOD ORDERABLES Final Result Performing Organization Address City/[facility]/[place] [address], [place] [address] * Magnesium (05/23/2025 5:15 AM EDT) Magnesium 2.0 1.6 - 2.7 mg/dL 05/23/2025 5:57 AM EDT Blood Blood specimen / Unknown 05/23/2025 5:15 AM EDT 05/23/2025 5:30 AM EDT us Radha Gay MD LAB BLOOD [place]AB[place] [address], [place] [address] * (ABNORMAL) Basic Metabolic Panel (05/23/2025 5:15 AM EDT) Glucose 85 65 - 99 mg/dL 05/23/2025 5:57 AM T Comment:Fasting: <100 mg/dL, Non-Fasting: <200 mg/dL (ADA 2005) Blood Urea Nitrogen (BUN) 9 8 - 21 mg/dL 05/23/2025 5:57 AM T Creatinine 0.48(L) 0.50 - 1.30 mg/dL 05/23/2025 5:57 AM T eGFR >90 >59 05/23/2025 5:57 AM T Comment:CKD-EPI (2020) in mL /min/1.73 sq meters. Sodium 131(L) 136 - 145 mmol/L 05/23/2025 5:57 AM EDT Potassium 4.1 3.4 - 5.3 mmol/L 05/23/2025 5:57 AM EDT Chloride 98 98 - 107 mmol/L 05/23/2025 5:57 AM EDT CO2 21(L) 22 - 33 mmol/L 05/23/2025 5:57 AM [facility] Anion Gap 12 7 - 17 05/23/2025 5:57 AM [facility] Calcium 8.2(L) 8.7 - 10.5 mg/dL 05/23/2025 5:57 AM [facility] BUN/Creatinine Ratio 19 10.0 - 25.0 Ratio 05/23/2025 5:57 AM [facility] Blood Blood specimen / Unknown 05/23/2025 5:15 AM EDT 05/23/2025 5:30 AM EDT Radha Gay MD LAB BLOOD [place]AB[place] [address], [place] [address] * Heparin Assay (Anti-Xa) (05/23/2025 5:15 AM EDT) Anti Xa 0.37 IU/mL 05/23/2025 5:48 AM T Comment: (NOTE) Heparin Thromboembolic/Standard/Full Dose Protocol: Therapeutic Range: Age 18+: 0.30 - 0.70 IU/mL Age 0 - 17: 0.35 - 0.70 IU/mL Heparin Cardiac/Low Dose Protocol: Therapeutic Range: 0.30 - 0.50 IU/mL Low Molecular Weight Heparin: Therapeutic Range: Age 18+: 0.50 - 1.09 IU/mL for twice daily dosing (or adjusted to daily for poor renal function) Age 18+: 1.00 - 2.00 IU/mL for once daily dosing Age 0-17: 0.50 - 1.00 IU/mL Anticoagulant IV HEPARIN, UNFRACTIONATED 05/23/2025 12:23 AM EDT Blood Blood specimen / Unknown 05/23/2025 5:15 AM EDT 05/23/2025 5:30 AM EDT Radha Gay MD LAB BLOOD ORDERABLES Final Result Performing Organization Address [facility] Co de Phone Number [address] [place] [address], [address] [address] * ECG 12 lead (05/22/2025 5:10 PM EDT) Ventricular rate 86 BPM EKG Atrial rate 86 BPM EKG [facility] P-R interval 158 ms EKG [facility] QRS duration 90 ms EKG [facility] Q-T interval 392 ms EKG [facility] QTC calculation (Bazett) 469 ms EKG P axis 37 degrees EKG [facility] R axis -46 degrees EKG [facility] T axis 30 degrees EKG [facility] 05/22/2025 5:10 PM EDT Narrative EKG - 05/23/2025 9:25 PM EDT Normal sinus rhythm Low voltage QRS Left anterior fascicular block Cannot rule out Inferior infarct (masked by fascicular block?) , age undetermined Possible Anterolateral infarct , age undetermined Abnormal ECG When compared with ECG of 22-May-2025 17:08, MANUAL COMPARISON REQUIRED PREVIOUS ECG IS INCOMPATIBLE Confirmed by MD Greenberg Mohammed ([id number]) on 05/23/2025 9:25:48 PM Procedure Note Volodymyr Greenberg MD - 05/23/2025 Normal sinus rhythm Low voltage QRS Left anterior fascicular block Cannot rule out Inferior infarct (masked by fascicular block?) , ageundetermined Possible Anterolateral infarct , age undetermined Abnormal ECG When compared with ECG of 22-May-2025 17:08, MANUAL COMPARISON REQUIRED PREVIOUS ECG IS INCOMPATIBLE Confirmed by MD Greenberg Mohammed ([id number]) on 05/23/2025 9:25:48 PM Fabien Sullivan MD ECG ORDERABLES Final Result [facility] * ECG 12 lead (STAT) (05/22/2025 5:08 PM EDT) [facility] Ventricular rate 0 BPM EKG Atrial rate 0 BPM EKG [facility] QRS duration 0 ms EKG [facility] Q-T interval 0 ms EKG [facility] QTC calculation (Bazett) 0 ms EKG P axis 0 degrees EKG [facility] R axis 0 degrees EKG [facility] T axis 0 degrees EKG [facility] 05/22/2025 5:08 PM EDT Narrative EKG - 05/22/2025 5:40 PM EDT No QRS complexes found, no ECG analysis possible No previous ECGs available Confirmed by MD Kramer George ([id number]) on 05/22/2025 5:40:04 PM Procedure Note Celio Kramer MD - 05/22/2025 No QRS complexes found, no ECG analysis possible No previous ECGs available Confirmed by MD Kramer George ([id number]) on 05/22/2025 5:40:04 PM us Radha Gay MD ECG ORDERABLES Final Resu lt [facility] * (ABNORMAL) Basic Metabolic Panel (05/22/2025 3:35 PM EDT) [facility] Glucose 83 65 - 99 mg/dL 05/22/2025 4:18 PM EDT Comment:Fasting: <100 mg/dL, Non-Fasting: <200 mg/dL (ADA 2004) Blood Urea Nitrogen (BUN) 8 8 - 21 mg/dL 05/22/2025 4:18 PM EDT Creatinine 0.41(L) 0.50 - 1.30 mg/dL 05/22/2025 4:18 PM EDT eGFR >90 >59 05/22/2025 4:18 PM EDT Comment:CKD-EPI (2020) in mL /min/1.73 sq meters. Sodium 135(L) 136 - 145 mmol/L 05/22/2025 4:18 PM EDT Potassium 4.9 3.4 - 5.3 mmol/L 05/22/2025 4:18 PM EDT Chloride 102 98 - 107 mmol/L 05/22/2025 4:18 PM EDT CO2 22 22 - 33 mmol/L 05/22/2025 4:18 PM EDT Anion Gap 11 7 - 17 05/22/2025 4:18 PM EDT Calcium 8.0(L) 8.7 - 10.5 mg/dL 05/22/2025 4:18 PM EDT BUN/Creatinine Ratio 20 10.0 - 25.0 Ratio 05/22/2025 4:18 PM EDT Blood Blood specimen / Unknown 05/22/2025 3:35 PM EDT 05/22/2025 3:54 PM EDT Radha Gay MD LAB BLOOD [place] [address], [place] [address] * (ABNORMAL) Albumin (05/22/2025 7:00 AM EDT) Albumin 3.1(L) 3.4 - 4.8 g/dL 05/22/2025 7:38 AM EDT Blood Blood specimen / Unknown 05/22/2025 7:00 AM EDT 05/22/2025 7:09 AM EDT Keanu Greer MD LAB BLOOD [place] [address], [place] [address] * Phosphorus (05/22/2025 7:00 AM EDT) Phosphorus 2.9 2.7 - 4.5 mg/dL 05/22/2025 7:38 AM EDT Blood Blood specimen / Unknown 05/22/2025 7:00 AM EDT 05/22/2025 7:09 AM EDT us Keanu Greer MD LAB BLOOD ORDERABLES Final Resul t Performing Organization Address City/[facility]/[place] [address], [place] [address] * Magnesium (05/22/2025 7:00 AM EDT) Magnesium 1.9 1.6 - 2.7 mg/dL 05/22/2025 7:38 AM EDT Blood Blood specimen / Unknown 05/22/2025 7:00 AM EDT 05/22/2025 7:09 AM EDT us Keanu Greer MD LAB BLOOD ORDERABLES Final Resul t Performing Organization Address City/[facility]/[place] [address], [place] [address] * (ABNORMAL) Basic Metabolic Panel (05/22/2025 7:00 AM EDT) Glucose 91 65 - 99 mg/dL 05/22/2025 7:38 AM T Comment:Fasting: <100 mg/dL, Non-Fasting: <200 mg/dL (ADA 2005) Blood Urea Nitrogen (BUN) 6(L) 8 - 21 mg/dL 05/22/2025 7:38 AM T Creatinine 0.38(L) 0.50 - 1.30 mg/dL 05/22/2025 7:38 AM T eGFR >90 >59 05/22/2025 7:38 AM T Comment:CKD-EPI (2020) in mL /min/1.73 sq meters. Sodium 134(L) 136 - 145 mmol/L 05/22/2025 7:38 AM EDT Potassium 3.8 3.4 - 5.3 mmol/L 05/22/2025 7:38 AM EDT Comment:Specimen hemolyzed. Results may be artifactually elevated. Chloride 100 98 - 107 mmol/L 05/22/2025 7:38 AM EDT CO2 21(L) 22 - 33 mmol/L 05/22/2025 7:38 AM EDT Anion Gap 13 7 - 17 05/22/2025 7:38 AM EDT Calcium 8.0(L) 8.7 - 10.5 mg/dL 05/22/2025 7:38 AM EDT BUN/Creatinine Ratio 16 10.0 - 25.0 Ratio 05/22/2025 7:38 AM EDT Blood Blood specimen / Unknown 05/22/2025 7:00 AM EDT 05/22/2025 7:09 AM EDT Keanu Greer MD LAB BLOOD [place]AB[place] [address], [place] [address] * (ABNORMAL) Phosphorus (05/22/2025 3:52 AM EDT) Phosphorus 2.1(L) 2.7 - 4.5 mg/dL 05/22/2025 5:37 AM EDT Blood Blood specimen / Unknown 05/22/2025 3:52 AM EDT 05/22/2025 4:59 AM EDT Radha Gay MD LAB BLOOD [place] [address], [place] [address] * (ABNORMAL) Magnesium (05/22/2025 3:52 AM EDT) Magnesium 1.5(L) 1.6 - 2.7 mg/dL 05/22/2025 5:37 AM [facility] Blood Blood specimen / Unknown 05/22/2025 3:52 AM EDT 05/22/2025 4:59 AM EDT Radha Gay MD LAB BLOOD ORDERABLES Final Result [address] [address], [address] [address] * (ABNORMAL) Basic Metabolic Panel (05/22/2025 3:52 AM EDT) Glucose 75 65 - 99 mg/dL 05/22/2025 5:37 AM [facility] Comment:Fasting: <100 mg/dL, Non-Fasting: <200 mg/dL (ADA 2004) Blood Urea Nitrogen (BUN) 5(L) 8 - 21 mg/dL 05/22/2025 5:37 AM [facility] Creatinine 0.35(L) 0.50 - 1.30 mg/dL 05/22/2025 5:37 AM [facility] eGFR >90 >59 05/22/2025 5:37 AM [facility] Comment:CKD-EPI (2020) in mL /min/1.73 sq meters. Sodium 139 136 - 145 mmol/L 05/22/2025 5:37 AM [facility] Potassium 2.4(LL) 3.4 - 5.3 mmol/L 05/22/2025 5:37 AM [facility] Chloride 106 98 - 107 mmol/L 05/22/2025 5:37 AM [facility] CO2 16(L) 22 - 33 mmol/L 05/22/2025 5:37 AM [facility] Anion Gap 17 7 - 17 05/22/2025 5:37 AM [facility] Calcium 6.3(LL) 8.7 - 10.5 mg/dL 05/22/2025 5:37 AM [facility] BUN/Creatinine Ratio 14 10.0 - 25.0 Ratio 05/22/2025 5:37 AM [facility] Blood Blood specimen / Unknown 05/22/2025 3:52 AM EDT 05/22/2025 4:59 AM EDT us Radha Gay MD LAB BLOOD ORDERABLES Final Result Performing Organization Address [facility] [place] [address], [place] [address] * Heparin Assay (Anti-Xa) (05/22/2025 3:52 AM EDT) Anti Xa 0.40 IU/mL 05/22/2025 5:33 AM EDT Anticoagulant IV HEPARIN, UNFRACTIONATED 05/22/2025 3:52 AM EDT Blood Blood specimen / Unknown 05/22/2025 3:52 AM EDT 05/22/2025 4:59 AM EDT Radha Gay MD LAB BLOOD ORDERABLES Final Result Performing Organization Address City/[facility] [place] [address], [place] [address] * XR Chest 1 view (05/21/2025 8:54 PM EDT) Anatomical Region Laterality Modality Chest Computed Radiogr aphy 05/21/2025 8:26 PM EDT Impressions 05/21/2025 9:40 PM EDT Mild bronchial wall thickening. Streaky left mid to lower lung opacities may reflect atelectasis and/or infectious/inflammatory process. Interpreted by: Pb Cummins MD Bezel Cutter I personally reviewed the images and the resident's preliminary report and AGREE with the report as it is now presented ([email or web address]). Narrative 05/21/2025 9:40 PM EDT EXAMINATION: XR CHEST 1 VIEW CLINICAL INFORMATION: fever workup COMPARISON: Chest radiograph 03/27/2025 TECHNIQUE: AP view of the chest was obtained. FINDINGS: Right chest port central venous catheter tip overlying the right atrium. The lungs are adequately expanded. Mild bronchial wall thickening. Streaky left mid to lower lung opacities. There is no focal consolidation, effusion, or edema. No pneumothorax. The cardiomediastinal silhouette is within normal limits. No acute osseous abnormality. Procedure Note Elian Clifton MD - 05/21/2025 EXAMINATION: XR CHEST 1 VIEW CLINICAL INFORMATION: fever workup COMPARISON: Chest radiograph 03/27/2025 TECHNIQUE: AP view of the chest was obtained. FINDINGS: Right chest port central venous catheter tip overlying the right atrium. The lungs are adequately expanded. Mild bronchial wall thickening. Streaky left mid to lower lung opacities. There is no focal consolidation, effusion, or edema. No pneumothorax. The cardiomediastinal silhouette is within normal limits. No acute osseous abnormality. IMPRESSION: Mild bronchial wall thickening. Streaky left mid to lower lung opacities may reflect atelectasis and/or infectious/inflammatory process. Interpreted by: Pb Cummins MD Bezel Cutter I personally reviewed the images and the resident's preliminary report and AGREE with the report as it is now presented ([email or web address]). us Radha Gay MD IMG DIAGNOSTIC IMAGING ORD ERABLES Final Result * Blood Culture (05/21/2025 8:36 PM EDT) Pathologist Ketty Culture Sterile after 5 days 05/27/2025 7:41 AM EST [facility] Blood (Blood, Peripheral Venipuncture) 05/21/2025 8:36 PM EDT 05/21/2025 8:54 PM EDT Comment:Blood us Radha Gay MD LAB BLOOD ORDERABLES Final Result [facility] [address] [place] [place] [address], [place] * (ABNORMAL) Urinalysis with Reflex to Microscopic (05/21/2025 8:32 PM EDT) Color Yellow 05/21/2025 8:55 PM EDT Clarity Cloudy 05/21/2025 8:55 PM EDT Specific [place] 1.020 1.005 - 1.030 05/21/2025 8:55 PM EDT pH 6.0 5.0 - 8.0 05/21/2025 8:55 PM EDT Leukocyte Esterase Negative Negative 05/21/2025 8:55 PM EDT Nitrite Negative Negative 05/21/2025 8:55 PM EDT Protein 30(A) NEG^Negative mg/dL 05/21/2025 8:55 PM EDT Glucose Negative Negative mg/dL 05/21/2025 8:55 PM EDT Ketones 80(A) NEG^Negative mg/dL 05/21/2025 8:55 PM EDT Blood Negative Negative 05/21/2025 8:55 PM EDT Bilirubin Negative Negative 05/21/2025 8:55 PM EDT RBC 2 0 - 4 per hpf 05/21/2025 8:55 PM EDT WBC 1 0 - 4 per hpf 05/21/2025 8:55 PM EDT Epithelial Cells 1 per hpf 05/21/2025 8:55 PM EDT Casts 1 0 - 4 per lpf 05/21/2025 8:55 PM EDT Comment:Casts are hyaline un less otherwise noted. Urine Urine specimen / Unknown 05/21/2025 8:32 PM EDT 05/21/2025 8:39 PM EDT us Radha Gay MD URINE [place]AB[place] [address], [place] [address] * Blood Culture (05/21/2025 8:30 PM EDT) Culture Sterile after 5 days 05/27/2025 7:41 AM EST [facility] Blood (Blood, Peripheral Venipuncture) 05/21/2025 8:30 PM EDT 05/21/2025 8:54 PM EDT Comment:Blood Radha Gay MD LAB BLOOD ORDERABLES Final Result [facility] [address] [place] [address], * (ABNORMAL) COMPLETE BLOOD COUNT, WITHOUT DIFFERENTIAL (05/21/2025 8:24 PM EDT) White Blood Cell Count 3.5(L) 4.0 - 11.0 Thou/uL 05/21/2025 9:13 PM EDT Platelet Count 230 150 - 450 Thou/uL [facility] Hemoglobin 11.5(L) 13.0 - 17.7 g/dL 05/21/2025 9:13 PM [facility] Hematocrit 34.5(L) 39.0 - 54.0 % 05/21/2025 9:13 PM [facility] Red Blood Cell Count 3.96(L) 4.50 - 6.20 Mil/uL 05/21/2025 9:13 PM EDT MCV 87 80 - 100 fL 05/21/2025 9:13 PM [facility] MCH 29.0 27.0 - 31.0 pg 05/21/2025 9:13 PM [facility] MCHC 33.3 30.0 - 36.0 g/dL 05/21/2025 9:13 PM [facility] RDW 14.6(H) 11.5 - 14.5 % 05/21/2025 9:13 PM [facility] MPV 8.7 7.5 - 12.5 fL 05/21/2025 9:13 PM [facility] Blood Blood specimen / Unknown 05/21/2025 8:24 PM EDT 05/21/2025 8:58 PM EDT Radha Gay MD LAB BLOOD ORDERABLES Final Result [address] [place] [address], [address] [address] * (ABNORMAL) Phosphorus (05/21/2025 4:45 PM EDT) Pathologist [facility] Phosphorus 2.2(L) 2.7 - 4.5 mg/dL 05/21/2025 5:49 PM EDT Blood Blood specimen / Unknown 05/21/2025 4:45 PM EDT 05/21/2025 5:17 PM EDT us Radha Gay MD LAB BLOOD [place] [address], [place] [address] * Magnesium (05/21/2025 4:45 PM EDT) [facility] Magnesium 2.1 1.6 - 2.7 mg/dL 05/21/2025 5:49 PM EDT Blood Blood specimen / Unknown 05/21/2025 4:45 PM EDT 05/21/2025 5:17 PM EDT us Radha Gay MD LAB BLOOD ORDERABLES Final Result Performing Organization Address City/[facility]/[place] [address], [place] [address] * (ABNORMAL) Basic Metabolic Panel (Routine) (05/21/2025 4:45 PM EDT) Pathologist [facility] Glucose 107(H) 65 - 99 mg/dL 05/21/2025 5:49 PM EDT Comment:Fasting: <100 mg/dL, Non-Fasting: <200 mg/dL (ADA 2005) Blood Urea Nitrogen (BUN) 7(L) 8 - 21 mg/dL 05/21/2025 5:49 PM EDT Creatinine 0.39(L) 0.50 - 1.30 mg/dL 05/21/2025 5:49 PM EDT eGFR >90 >59 05/21/2025 5:49 PM EDT Comment:CKD-EPI (2020) in mL /min/1.73 sq meters. Sodium 132(L) 136 - 145 mmol/L 05/21/2025 5:49 PM EDT Potassium 3.7 3.4 - 5.3 mmol/L 05/21/2025 5:49 PM EDT Chloride 96(L) 98 - 107 mmol/L 05/21/2025 5:49 PM EDT CO2 20(L) 22 - 33 mmol/L 05/21/2025 5:49 PM EDT Anion Gap 16 7 - 17 05/21/2025 5:49 PM EDT Calcium 8.4(L) 8.7 - 10.5 mg/dL 05/21/2025 5:49 PM [facility] BUN/Creatinine Ratio 18 10.0 - 25.0 Ratio 05/21/2025 5:49 PM [facility] Blood Blood specimen / Unknown 05/21/2025 4:45 PM EDT 05/21/2025 5:17 PM EDT Radha Gay MD LAB BLOOD [place] [address], [place] [address] * Heparin Assay (Anti Xa) (05/21/2025 5:30 AM EDT) Anti Xa 0.41 IU/mL 05/21/2025 6:08 AM EDT Comment: (NOTE) Heparin Thromboembolic/Standard/Full Dose Protocol: Therapeutic Range: Age 18+: 0.30 - 0.70 IU/mL Age 0 - 17: 0.35 - 0.70 IU/mL Heparin Cardiac/Low Dose Protocol: Therapeutic Range: 0.30 - 0.50 IU/mL Low Molecular Weight Heparin: Therapeutic Range: Age 18+: 0.50 - 1.09 IU/mL for twice daily dosing (or adjusted to daily for poor renal function) Age 18+: 1.00 - 2.00 IU/mL for once daily dosing Age 0-17: 0.50 - 1.00 IU/mL Anticoagulant IV HEPARIN, UNFRACTIONATED 05/21/2025 4:41 AM EDT Blood Blood specimen / Unknown 05/21/2025 5:30 AM EDT 05/21/2025 5:44 AM EDT Radha Gay MD LAB BLOOD ORDERABLES Final Result [address] [address], [address] [address] * (ABNORMAL) Phosphorus (05/21/2025 5:30 AM EDT) Phosphorus 2.0(L) 2.7 - 4.5 mg/dL 05/21/2025 6:07 AM EDT Blood Blood specimen / Unknown 05/21/2025 5:30 AM EDT 05/21/2025 5:44 AM EDT Radha Gay MD LAB BLOOD ORDERABLES Final Result Performing Organization Address City/[facility]/ZIP Co de Phone Number [address] [address], [address] [address] * Magnesium (Early AM) (05/21/2025 5:30 AM EDT) Magnesium 1.7 1.6 - 2.7 mg/dL 05/21/2025 6:07 AM EDT Blood Blood specimen / Unknown 05/21/2025 5:30 AM EDT 05/21/2025 5:44 AM EDT us Radha Gay MD LAB BLOOD ORDERABLES Final Result [address] [address], [address] [address] * (ABNORMAL) Basic Metabolic Panel (05/21/2025 5:30 AM EDT) Pathologist [facility] Glucose 86 65 - 99 mg/dL 05/21/2025 6:07 AM [facility] Comment:Fasting: <100 mg/dL, Non-Fasting: <200 mg/dL (ADA 2004) Blood Urea Nitrogen (BUN) 5(L) 8 - 21 mg/dL 05/21/2025 6:07 AM [facility] Creatinine 0.37(L) 0.50 - 1.30 mg/dL 05/21/2025 6:07 AM [facility] eGFR >90 >59 05/21/2025 6:07 AM [facility] Comment:CKD-EPI (2020) in mL /min/1.73 sq meters. Sodium 134(L) 136 - 145 mmol/L 05/21/2025 6:07 AM [facility] Potassium 3.1(L) 3.4 - 5.3 mmol/L 05/21/2025 6:07 AM [facility] Chloride 97(L) 98 - 107 mmol/L 05/21/2025 6:07 AM [facility] CO2 19(L) 22 - 33 mmol/L 05/21/2025 6:07 AM [facility] Anion Gap 18(H) 7 - 17 05/21/2025 6:07 AM [facility] Calcium 8.6(L) 8.7 - 10.5 mg/dL 05/21/2025 6:07 AM [facility] BUN/Creatinine Ratio 14 10.0 - 25.0 Ratio 05/21/2025 6:07 AM [facility] Blood Blood specimen / Unknown 05/21/2025 5:30 AM EDT 05/21/2025 5:44 AM EDT us Radha Gay MD LAB BLOOD [place]AB[place] [address], [place] [address] * Heparin Assay (Anti Xa) (05/20/2025 11:30 PM EDT) Pathologist [facility] Anti Xa 0.53 IU/mL 05/21/2025 12:15 AM EDT Comment: (NOTE) Heparin Thromboembolic/Standard/Full Dose Protocol: Therapeutic Range: Age 18+: 0.30 - 0.70 IU/mL Age 0 - 17: 0.35 - 0.70 IU/mL Heparin Cardiac/Low Dose Protocol: Therapeutic Range: 0.30 - 0.50 IU/mL Low Molecular Weight Heparin: Therapeutic Range: Age 18+: 0.50 - 1.09 IU/mL for twice daily dosing (or adjusted to daily for poor renal function) Age 18+: 1.00 - 2.00 IU/mL for once daily dosing Age 0-17: 0.50 - 1.00 IU/mL Anticoagulant IV HEPARIN, UNFRACTIONATED 05/20/2025 11:02 PM EDT Blood Blood specimen / Unknown 05/20/2025 11:30 PM EDT 05/20/2025 11:51 PM EDT Radha Gay MD LAB BLOOD [place]AB[place] [address], [place] [address] * Heparin Assay (Anti Xa) (05/20/2025 5:44 PM EDT) Anti Xa 0.67 IU/mL 05/20/2025 6:36 PM EDT Comment: (NOTE) Heparin Thromboembolic/Standard/Full Dose Protocol: Therapeutic Range: Age 18+: 0.30 - 0.70 IU/mL Age 0 - 17: 0.35 - 0.70 IU/mL Heparin Cardiac/Low Dose Protocol: Therapeutic Range: 0.30 - 0.50 IU/mL Low Molecular Weight Heparin: Therapeutic Range: Age 18+: 0.50 - 1.09 IU/mL for twice daily dosing (or adjusted to daily for poor renal function) Age 18+: 1.00 - 2.00 IU/mL for once daily dosing Age 0-17: 0.50 - 1.00 IU/mL Anticoagulant IV HEPARIN, UNFRACTIONATED 05/20/2025 5:45 PM EDT Blood Blood specimen / Unknown 05/20/2025 5:44 PM EDT 05/20/2025 6:23 PM EDT Radha Gay MD LAB BLOOD ORDERABLES Final Result Performing Organization Address City/[facility]/ZIP Co de Phone Number [address] [address], [address] [address] * Heparin Assay (Anti-Xa) (05/20/2025 10:48 AM EDT) Anti Xa 0.38 IU/mL 05/20/2025 11:46 AM EDT Comment: (NOTE) Heparin Thromboembolic/Standard/Full Dose Protocol: Therapeutic Range: Age 18+: 0.30 - 0.70 IU/mL Age 0 - 17: 0.35 - 0.70 IU/mL Heparin Cardiac/Low Dose Protocol: Therapeutic Range: 0.30 - 0.50 IU/mL Low Molecular Weight Heparin: Therapeutic Range: Age 18+: 0.50 - 1.09 IU/mL for twice daily dosing (or adjusted to daily for poor renal function) Age 18+: 1.00 - 2.00 IU/mL for once daily dosing Age 0-17: 0.50 - 1.00 IU/mL Anticoagulant Information not given 05/20/2025 11:08 AM EDT 05/20/2025 10:4 8 AM EDT 05/20/2025 11:00 AM EDT Radha Gay MD LAB BLOOD ORDERABLES Final Result [address] [address], [address] [address] * Partial Thromboplastin Time (PTT) (05/20/2025 10:48 AM EDT) Anticoagulant OTHER AGENT OR UNKNOWN 05/20/2025 10:31 AM EDT Partial Thromboplastin Time (PTT) 31 25 - 36 seconds 05/20/2025 11:46 AM EDT Blood Blood specimen / Unknown 05/20/2025 10:48 AM EDT 05/20/2025 11:00 AM EDT Radha Gay MD LAB BLOOD ORDERABLES Final Result Performing Organization Address City/[facility]/ZIP Co de Phone Number [address] [address], [address] [address] * (ABNORMAL) Protime-INR (Routine) (05/20/2025 10:48 AM EDT) Anticoagulant OTHER AGENT OR UNKNOWN 05/20/2025 10:31 AM EDT Prothrombin Time (PT) 16.3(H) 10.0 - 13.5 seconds 05/20/2025 11:46 AM EDT INR 1.4 05/20/2025 11:46 AM EDT Comment:INR Therapeutic Rang es: Standard dose anticoagulant 2.0 to 3.0, High dose anticoagulant 2.5-3.5. Blood Blood specimen / Unknown 05/20/2025 10:48 AM EDT 05/20/2025 11:00 AM EDT Radha Gay MD LAB BLOOD ORDERABLES Final Result Performing Organization Address City/[facility]/ZIP Co de Phone Number [address] [address], [address] [address] * (ABNORMAL) Phosphorus (05/20/2025 6:10 AM EDT) Phosphorus 1.7(L) 2.7 - 4.5 mg/dL 05/20/2025 7:37 AM EDT Blood Blood specimen / Unknown 05/20/2025 6:10 AM EDT 05/20/2025 6:56 AM EDT Radha Gay MD LAB BLOOD ORDERABLES Final Result [address] [address], [place] [address] * Magnesium (05/20/2025 6:10 AM EDT) [facility] Magnesium 1.6 1.6 - 2.7 mg/dL 05/20/2025 7:37 AM EDT Blood Blood specimen / Unknown 05/20/2025 6:10 AM EDT 05/20/2025 6:56 AM EDT Radha Gay MD LAB BLOOD [place]AB[place] [address], [place] [address] * (ABNORMAL) COMPLETE BLOOD COUNT, WITHOUT DIFFERENTIAL (05/20/2025 6:10 AM EDT) [facility] White Blood Cell Count 2.3(L) 4.0 - 11.0 Thou/uL 05/20/2025 7:18 AM [facility] Platelet Count 194 150 - 450 Thou/uL 05/20/2025 7:18 AM [facility] Hemoglobin 10.0(L) 13.0 - 17.7 g/dL 05/20/2025 7:18 AM [facility] Hematocrit 30.3(L) 39.0 - 54.0 % 05/20/2025 7:18 AM [facility] Red Blood Cell Count 3.44(L) 4.50 - 6.20 Mil/uL 05/20/2025 7:18 AM [facility] MCV 88 80 - 100 fL 05/20/2025 7:18 AM [facility] MCH 29.1 27.0 - 31.0 pg 05/20/2025 7:18 AM [facility] MCHC 33.0 30.0 - 36.0 g/dL 05/20/2025 7:18 AM [facility] RDW 14.1 11.5 - 14.5 % 05/20/2025 7:18 AM [facility] MPV 9.0 7.5 - 12.5 fL 05/20/2025 7:18 AM [facility] Blood Blood specimen / Unknown 05/20/2025 6:10 AM EDT 05/20/2025 6:56 AM EDT Radha Gay MD LAB BLOOD ORDERABLES Final Result [address] [place] [address], [address] [address] * (ABNORMAL) Basic Metabolic Panel (05/20/2025 6:10 AM EDT) Glucose 78 65 - 99 mg/dL 05/20/2025 7:37 AM [facility] Comment:Fasting: <100 mg/dL, Non-Fasting: <200 mg/dL (ADA 2005) Blood Urea Nitrogen (BUN) 6(L) 8 - 21 mg/dL 05/20/2025 7:37 AM [facility] Creatinine 0.33(L) 0.50 - 1.30 mg/dL 05/20/2025 7:37 AM [facility] eGFR >90 >59 05/20/2025 7:37 AM [facility] Comment:CKD-EPI (2020) in mL /min/1.73 sq meters. Sodium 136 136 - 145 mmol/L 05/20/2025 7:37 AM [facility] Potassium 3.5 3.4 - 5.3 mmol/L 05/20/2025 7:37 AM [facility] Chloride 101 98 - 107 mmol/L 05/20/2025 7:37 AM [facility] CO2 21(L) 22 - 33 mmol/L 05/20/2025 7:37 AM [facility] Anion Gap 14 7 - 17 05/20/2025 7:37 AM [facility] Calcium 8.3(L) 8.7 - 10.5 mg/dL 05/20/2025 7:37 AM [facility] BUN/Creatinine Ratio 18 10.0 - 25.0 Ratio 05/20/2025 7:37 AM EDT Blood Blood specimen / Unknown 05/20/2025 6:10 AM EDT 05/20/2025 6:56 AM EDT us Radha Gay MD LAB BLOOD ORDERABLES Final Result Performing Organization Address [facility] Co de Phone Number [address] [address], [address] [address] * Phosphorus (05/19/2025 4:21 PM EDT) Phosphorus 3.4 2.7 - 4.5 mg/dL 05/19/2025 5:14 PM EDT Blood Blood specimen / Unknown 05/19/2025 4:21 PM EDT 05/19/2025 4:51 PM EDT us Radha Gay MD LAB BLOOD ORDERABLES Final Result Performing Organization Address City/[facility]/ZIP Co de Phone Number [address] [address], [address] [address] * Magnesium (05/19/2025 4:21 PM EDT) Magnesium 1.7 1.6 - 2.7 mg/dL 05/19/2025 5:14 PM EDT Blood Blood specimen / Unknown 05/19/2025 4:21 PM EDT 05/19/2025 4:51 PM EDT us Radha Gay MD LAB BLOOD ORDERABLES Final Result Performing Organization Address City/[facility] Co de Phone Number [address] [address], [address] [address] * (ABNORMAL) Basic Metabolic Panel (05/19/2025 4:21 PM EDT) Glucose 136(H) 65 - 99 mg/dL 05/19/2025 5:14 PM EDT Comment:Fasting: <100 mg/dL, Non-Fasting: <200 mg/dL (ADA 2004) Blood Urea Nitrogen (BUN) 9 8 - 21 mg/dL 05/19/2025 5:14 PM EDT Creatinine 0.41(L) 0.50 - 1.30 mg/dL 05/19/2025 5:[facility] >59 05/19/2025 5:14 PM [facility] Comment:CKD-EPI (2020) in mL /min/1.73 sq meters. Sodium 139 136 - 145 mmol/L 05/19/2025 5:14 PM EDT Potassium 4.0 3.4 - 5.3 mmol/L 05/19/2025 5:14 PM [facility] Chloride 102 98 - 107 mmol/L 05/19/2025 5:14 PM [facility] CO2 20(L) 22 - 33 mmol/L 05/19/2025 5:14 PM [facility] Anion Gap 17 7 - 17 05/19/2025 5:14 PM [facility] Calcium 8.3(L) 8.7 - 10.5 mg/dL 05/19/2025 5:14 PM [facility] BUN/Creatinine Ratio 22 10.0 - 25.0 Ratio 05/19/2025 5:14 PM [facility] Blood Blood specimen / Unknown 05/19/2025 4:21 PM EDT 05/19/2025 4:51 PM EDT Radha Gay MD LAB BLOOD ORDERAB[place] [address], [place] [address] * Heparin Assay (Anti Xa) (05/19/2025 3:42 PM EDT) Anti Xa 0.84 IU/mL 05/19/2025 4:37 PM EDT Comment: (NOTE) Heparin Thromboembolic/Standard/Full Dose Protocol: Therapeutic Range: Age 18+: 0.30 - 0.70 IU/mL Age 0 - 17: 0.35 - 0.70 IU/mL Heparin Cardiac/Low Dose Protocol: Therapeutic Range: 0.30 - 0.50 IU/mL Low Molecular Weight Heparin: Therapeutic Range: Age 18+: 0.50 - 1.09 IU/mL for twice daily dosing (or adjusted to daily for poor renal function) Age 18+: 1.00 - 2.00 IU/mL for once daily dosing Age 0-17: 0.50 - 1.00 IU/mL Anticoagulant IV HEPARIN, UNFRACTIO NATED, BEING HELD 05/19/2025 3:43 PM EDT Blood Blood specimen / Unknown 05/19/2025 3:42 PM EDT 05/19/2025 4:13 PM EDT Radha Gay MD LAB BLOOD ORDERABLES Final Result Performing Organization Address City/[facility]/[place] [address], [place] [address] * (ABNORMAL) POTASSIUM - Post op (05/19/2025 11:13 AM EDT) Potassium 3.1(L) 3.4 - 5.3 mmol/L 05/19/2025 11:46 AM EDT Blood Blood specimen / Unknown 05/19/2025 11:13 AM EDT 05/19/2025 11:25 AM EDT Zena Lopez CRNA LAB BLOOD ORDERABLES [place] [address], [place] [address] * POCT Glucose, Fingerstick (05/19/2025 11:04 AM EDT) POC Glucose 99 65 - 99 mg/dL 05/19/2025 11:05 AM EDT Blood specimen / Unknown 05/19/2025 11:04 AM EDT 05/19/2025 11:05 AM EDT Fabien Sullivan MD POINT OF CARE TEST ORDERABLES Fi nal Result HOSPITAL LAB See Below * Heparin Assay (Anti-Xa) (05/19/2025 5:37 AM EDT) Anti Xa 1.48 IU/mL 05/19/2025 6:31 AM EDT Comment: (NOTE) Heparin Thromboembolic/Standard/Full Dose Protocol: Therapeutic Range: Age 18+: 0.30 - 0.70 IU/mL Age 0 - 17: 0.35 - 0.70 IU/mL Heparin Cardiac/Low Dose Protocol: Therapeutic Range: 0.30 - 0.50 IU/mL Low Molecular Weight Heparin: Therapeutic Range: Age 18+: 0.50 - 1.09 IU/mL for twice daily dosing (or adjusted to daily for poor renal function) Age 18+: 1.00 - 2.00 IU/mL for once daily dosing Age 0-17: 0.50 - 1.00 IU/mL Anticoagulant IV HEPARIN, UNFRACTIO NATED, BEING HELD 05/19/2025 1:02 AM EDT Blood Blood specimen / Unknown 05/19/2025 5:37 AM EDT 05/19/2025 6:10 AM EDT Felipe Limon MD LAB BLOOD ORDERABLES Final Result Performing Organization Address City/[facility]/[place] [address], [place] [address] * (ABNORMAL) Phosphorus (05/19/2025 5:37 AM EDT) Phosphorus 2.2(L) 2.7 - 4.5 mg/dL 05/19/2025 6:54 AM EDT Blood Blood specimen / Unknown 05/19/2025 5:37 AM EDT 05/19/2025 6:10 AM EDT Radha Gay MD LAB BLOOD [place] [address], [place] [address] * Magnesium (05/19/2025 5:37 AM EDT) Magnesium 1.7 1.6 - 2.7 mg/dL 05/19/2025 6:54 AM EDT Blood Blood specimen / Unknown 05/19/2025 5:37 AM EDT 05/19/2025 6:10 AM EDT Radha Gay MD LAB BLOOD ORDERABLES Final Result Performing Organization Address City/[facility]/[place] [address], [place] [address] * (ABNORMAL) COMPLETE BLOOD COUNT, WITHOUT DIFFERENTIAL (05/19/2025 5:37 AM EDT) White Blood Cell Count 1.6(LL) 4.0 - 11.0 Thou/uL 05/19/2025 8:03 AM EDT Comment:Results verified by smear review. Platelet Count 163 150 - 450 Thou/uL 05/19/2025 8:[facility] Hemoglobin 10.2(L) 13.0 - 17.7 g/dL 05/19/2025 8:03 AM T Hematocrit 30.6(L) 39.0 - 54.0 % 05/19/2025 8:03 AM [facility] Red Blood Cell Count 3.45(L) 4.50 - 6.20 Mil/uL 05/19/2025 8:03 AM T MCV 89 80 - 100 fL 05/19/2025 8:03 AM [facility] MCH 29.6 27.0 - 31.0 pg 05/19/2025 8:03 AM EDT MCHC 33.3 30.0 - 36.0 g/dL 05/19/2025 8:03 AM [facility] RDW 14.0 11.5 - 14.5 % 05/19/2025 8:03 AM [facility] MPV 8.8 7.5 - 12.5 fL 05/19/2025 8:03 AM [facility] Blood Blood specimen / Unknown 05/19/2025 5:37 AM EDT 05/19/2025 6:10 AM EDT Radha Gay MD LAB BLOOD ORDERABLES Final Result [address] [address], [address] [address] * (ABNORMAL) Basic Metabolic Panel (05/19/2025 5:37 AM EDT) Glucose 89 65 - 99 mg/dL 05/19/2025 6:54 AM [facility] Comment:Fasting: <100 mg/dL, Non-Fasting: <200 mg/dL (ADA 2005) Blood Urea Nitrogen (BUN) 11 8 - 21 mg/dL 05/19/2025 6:54 AM [facility] Creatinine 0.45(L) 0.50 - 1.30 mg/dL 05/19/2025 6:54 AM [facility] eGFR >90 >59 05/19/2025 6:54 AM [facility] Comment:CKD-EPI (2020) in mL /min/1.73 sq meters. Sodium 139 136 - 145 mmol/L 05/19/2025 6:54 AM [facility] Potassium 2.9(L) 3.4 - 5.3 mmol/L 05/19/2025 6:54 AM [facility] Chloride 102 98 - 107 mmol/L 05/19/2025 6:54 AM [facility] CO2 22 22 - 33 mmol/L 05/19/2025 6:54 AM [facility] Anion Gap 15 7 - 17 05/19/2025 6:54 AM [facility] Calcium 8.2(L) 8.7 - 10.5 mg/dL 05/19/2025 6:54 AM EDT BUN/Creatinine Ratio 24 10.0 - 25.0 Ratio 05/19/2025 6:54 AM EDT Blood Blood specimen / Unknown 05/19/2025 5:37 AM EDT 05/19/2025 6:10 AM EDT Radha Gay MD LAB BLOOD ORDERABLES Final Result Performing Organization Address City/[facility]/[place] [address], [address] [address] * (ABNORMAL) Heparin Assay (Anti-Xa) (05/19/2025 12:02 AM EDT) Anti Xa >2.00(HH) IU/mL 05/19/2025 12:43 AM EDT Comment: (NOTE) Heparin Thromboembolic/Standard/Full Dose Protocol: Therapeutic Range: Age 18+: 0.30 - 0.70 IU/mL Age 0 - 17: 0.35 - 0.70 IU/mL Heparin Cardiac/Low Dose Protocol: Therapeutic Range: 0.30 - 0.50 IU/mL Low Molecular Weight Heparin: Therapeutic Range: Age 18+: 0.50 - 1.09 IU/mL for twice daily dosing (or adjusted to daily for poor renal function) Age 18+: 1.00 - 2.00 IU/mL for once daily dosing Age 0-17: 0.50 - 1.00 IU/mL Anticoagulant IV HEPARIN, UNFRACTIO NATED, BEING HELD 05/19/2025 12:02 AM EDT Blood Blood specimen / Unknown 05/19/2025 12:02 AM EDT 05/19/2025 12:20 AM EDT Felipe Limon MD LAB BLOOD ORDERABLES Final Result [address] [address], [address] [address] * (ABNORMAL) Heparin Assay (Anti Xa) (05/18/2025 5:45 PM EDT) Anti Xa >2.00(HH) IU/mL 05/18/2025 6:40 PM EDT Comment: (NOTE) Heparin Thromboembolic/Standard/Full Dose Protocol: Therapeutic Range: Age 18+: 0.30 - 0.70 IU/mL Age 0 - 17: 0.35 - 0.70 IU/mL Heparin Cardiac/Low Dose Protocol: Therapeutic Range: 0.30 - 0.50 IU/mL Low Molecular Weight Heparin: Therapeutic Range: Age 18+: 0.50 - 1.09 IU/mL for twice daily dosing (or adjusted to daily for poor renal function) Age 18+: 1.00 - 2.00 IU/mL for once daily dosing Age 0-17: 0.50 - 1.00 IU/mL Anticoagulant APIXABAN (ELIQUIS) 05/18/2025 5:45 PM EDT Blood Blood specimen / Unknown 05/18/2025 5:45 PM EDT 05/18/2025 6:06 PM EDT us Felipe Limon MD LAB BLOOD ORDERABLES Final Result Performing Organization Address City/[facility]/[place] [address], [place] [address] * Prepare RBC's:Prepare in: Units; Number of Units: 1; Transfusion Indications: Hemoglobin less than 7 gm/dl or HCT less than 21% (05/18/2025 3:24 PM EDT) Units Ordered 1 05/18/2025 3:24 PM EDT 05/18/2025 3:24 PM EDT 05/18/2025 3:34 PM EDT us Felipe Limon MD BLOOD BANK PRODUCT ORDERABL ES Final Result Performing Organization Address City/[facility] [place] [address], [place] [address] * XR Abdomen 1 view-Portable (05/18/2025 10:00 AM EDT) Anatomical Region Laterality Modality Abdomen Computed Radiogr aphy 05/18/2025 9:23 AM EDT Impressions 05/18/2025 5:05 PM EDT 1. Enteric tube, with the tip and sidehole over the expected location of GE junction/gastric fundus. 2. Multiple air distended loops of small and large bowel, with small bowel measuring up to 5.2 cm. Findings may represent ileus or partial small bowel obstruction. Narrative 05/18/2025 5:05 PM EDT EXAMINATION: XR ABDOMEN KUB CLINICAL INDICATION: S/p NGT insertion COMPARISON: CT abdomen and pelvis 05/17/2025 TECHNIQUE: AP view of the abdomen. FINDINGS: Enteric tube, with the tip and sidehole over the expected location of GE junction/gastric fundus. Multiple air distended loops of small and large bowel are identified, with small bowel, measuring up to 5.2 cm. Visualized lung bases are clear. No acute osseous abnormality. Procedure Note Chacho Mendez MD - 05/18/2025 EXAMINATION: XR ABDOMEN KUB CLINICAL INDICATION: S/p NGT insertion COMPARISON: CT abdomen and pelvis 05/17/2025 TECHNIQUE: AP view of the abdomen. FINDINGS: Enteric tube, with the tip and sidehole over the expected location of GE junction/gastric fundus. Multiple air distended loops of small and large bowel are identified, with small bowel, measuring up to 5.2 cm. Visualized lung bases are clear. No acute osseous abnormality. IMPRESSION: 1. Enteric tube, with the tip and sidehole over the expected location of GE junction/gastric fundus. 2. Multiple air distended loops of small and large bowel, with small bowel measuring up to 5.2 cm. Findings may represent ileus or partial small bowel obstruction. us Glenna Bennett PA-C [facility] DI[facility]NOSTIC IMAGING ORDER DEANDRA Final Result * (ABNORMAL) Yes, Order Baseline Heparin Assay (Anti-Xa) (05/18/2025 9:04 AM EDT) Anti Xa >2.00(HH) IU/mL 05/18/2025 11:07 AM EDT Comment: (NOTE) Heparin Thromboembolic/Standard/Full Dose Protocol: Therapeutic Range: Age 18+: 0.30 - 0.70 IU/mL Age 0 - 17: 0.35 - 0.70 IU/mL Heparin Cardiac/Low Dose Protocol: Therapeutic Range: 0.30 - 0.50 IU/mL Low Molecular Weight Heparin: Therapeutic Range: Age 18+: 0.50 - 1.09 IU/mL for twice daily dosing (or adjusted to daily for poor renal function) Age 18+: 1.00 - 2.00 IU/mL for once daily dosing Age 0-17: 0.50 - 1.00 IU/mL Anticoagulant APIXABAN (ELIQUIS) 05/18/2025 8:46 AM EDT Blood Blood specimen / Unknown 05/18/2025 9:04 AM EDT 05/18/2025 10:29 AM EDT us Felipe Limon MD LAB BLOOD [place]AB[place] [address], [place] [address] * (ABNORMAL) Partial Thromboplastin Time (PTT) (05/18/2025 9:04 AM EDT) Pathologist [facility] Anticoagulant IV HEPARIN, UNFRACTIONATED 05/18/2025 8:46 AM EDT Partial Thromboplastin Time (PTT) 37(H) 25 - 36 seconds 05/18/2025 11:07 AM EDT Blood Blood specimen / Unknown 05/18/2025 9:04 AM EDT 05/18/2025 10:29 AM EDT us Felipe Limon MD LAB BLOOD [place]AB[place] [address], [place] [address] * (ABNORMAL) Protime-INR (05/18/2025 9:04 AM EDT) [facility] Anticoagulant IV HEPARIN, UNFRACTIONATED 05/18/2025 8:46 AM [facility] Prothrombin Time (PT) 25.7(H) 10.0 - 13.5 seconds 05/18/2025 11:07 AM [facility] INR 2.2 05/18/2025 11:07 AM [facility] Comment:INR Therapeutic Rang es: Standard dose anticoagulant 2.0 to 3.0, High dose anticoagulant 2.5-3.5. Blood Blood specimen / Unknown 05/18/2025 9:04 AM EDT 05/18/2025 10:29 AM EDT Felipe Limon MD LAB BLOOD ORDERABLES Final Result Performing Organization Address City/State/[facility] [place] [address], [place] [address] * (ABNORMAL) Complete Blood Count WITHOUT Differential (05/18/2025 9:04 AM EDT) [facility] White Blood Cell Count 2.1(L) 4.0 - 11.0 Thou/uL 05/18/2025 10:38 AM [facility] Platelet Count 174 150 - 450 Thou/uL 05/18/2025 10:38 AM [facility] Hemoglobin 11.1(L) 13.0 - 17.7 g/dL 05/18/2025 10:38 AM [facility] Hematocrit 33.7(L) 39.0 - 54.0 % 05/18/2025 10:38 AM [facility] Red Blood Cell Count 3.78(L) 4.50 - 6.20 Mil/uL 05/18/2025 10:38 AM [facility] MCV 89 80 - 100 fL 05/18/2025 10:38 AM [facility] MCH 29.4 27.0 - 31.0 pg 05/18/2025 10:38 AM [facility] MCHC 32.9 30.0 - 36.0 g/dL 05/18/2025 10:38 AM [facility] RDW 13.9 11.5 - 14.5 % 05/18/2025 10:38 AM EDT MPV 8.9 7.5 - 12.5 fL 05/18/2025 10:38 AM EDT Blood Blood specimen / Unknown 05/18/2025 9:04 AM EDT 05/18/2025 10:29 AM EDT Felipe Limon MD LAB BLOOD ORDERABLES Final Result Performing Organization Address City/[facility] Co de Phone Number [address] [address], [address] [address] * (ABNORMAL) Protime-INR (05/17/2025 10:45 PM EDT) [facility] Anticoagulant NO ANTI COAGULANT MEDS 05/17/2025 10:11 PM EDT Prothrombin Time (PT) 25.0(H) 10.0 - 13.5 seconds 05/17/2025 11:20 PM EDT INR 2.2 05/17/2025 11:20 PM EDT Comment:INR Therapeutic Rang es: Standard dose anticoagulant 2.0 to 3.0, High dose anticoagulant 2.5-3.5. Blood Blood specimen / Unknown 05/17/2025 10:45 PM EDT 05/17/2025 11:03 PM EDT Fabien Sullivan MD LAB BLOOD ORDERABLES Final Resul t Performing Organization Address City/[facility]/ZIP Co de Phone Number [address] [address], [address] [address] * Hepatic Function Panel (05/17/2025 10:45 PM EDT) Alkaline Phosphatase 85 45 - 128 U/L 05/17/2025 11:25 PM EDT Aspartate Aminotrans (AST) 21 10 - 55 U/L 05/17/2025 11:25 PM EDT Alanine Aminotrans (ALT) 10 10 - 55 U/L 05/17/2025 11:25 PM EDT Bilirubin, Total 1.0 0.2 - 1.0 mg/dL 05/17/2025 11:25 PM EDT Protein, Total 6.9 6.3 - 8.3 g/dL 05/17/2025 11:25 PM EDT Albumin 3.8 3.4 - 4.8 g/dL 05/17/2025 11:25 PM EDT Bilirubin, Direct 0.2 0 - 0.2 mg/dL 05/17/2025 11:25 PM EDT Globulin 3.1 1.5 - 3.9 g/dL 05/17/2025 11:25 PM EDT Albumin/Globulin Ratio 1.2 1.0 - 3.0 Ratio 05/17/2025 11:25 PM EDT Blood Blood specimen / Unknown 05/17/2025 10:45 PM EDT 05/17/2025 11:03 PM EDT us Fabien Sullivan MD LAB BLOOD ORDERABLES Final Resul t Performing Organization Address City/[facility]/[place] [address], [place] [address] * Phosphorus (STAT) (05/17/2025 10:45 PM EDT) Phosphorus 2.7 2.7 - 4.5 mg/dL 05/17/2025 11:25 PM EDT Blood Blood specimen / Unknown 05/17/2025 10:45 PM EDT 05/17/2025 11:03 PM EDT us Fabien Sullivan MD LAB BLOOD [place] [address], [place] [address] * Magnesium (05/17/2025 10:45 PM EDT) Magnesium 1.9 1.6 - 2.7 mg/dL 05/17/2025 11:25 PM EDT Blood Blood specimen / Unknown 05/17/2025 10:45 PM EDT 05/17/2025 11:03 PM EDT us Fabien Sullivan MD LAB BLOOD [place] [address], [address] [address] * (ABNORMAL) Basic Metabolic Panel (05/17/2025 10:45 PM EDT) Glucose 106(H) 65 - 99 mg/dL 05/17/2025 11:25 PM T Comment:Fasting: <100 mg/dL, Non-Fasting: <200 mg/dL (ADA 2004) Blood Urea Nitrogen (BUN) 12 8 - 21 mg/dL 05/17[facility]2025 [facility] Creatinine 0.52 0.50 - 1.30 mg/dL 05/17/2025 11:25 PM [facility] eGFR >90 >59 05/17/2025 11:25 PM [facility] Comment:CKD-EPI (2020) in mL /min/1.73 sq meters. Sodium 132(L) 136 - 145 mmol/L 05/17/2025 11:25 PM [facility] Potassium 3.5 3.4 - 5.3 mmol/L 05/17/2025 11:25 PM [facility] Chloride 95(L) 98 - 107 mmol/L 05/17/2025 11:25 PM [facility] CO2 24 22 - 33 mmol/L 05/17/2025 11:25 PM [facility] Anion Gap 13 7 - 17 05/17/2025 11:25 PM [facility] Calcium 9.0 8.7 - 10.5 mg/dL 05/17/2025 11:25 PM [facility] BUN/Creatinine Ratio 23 10.0 - 25.0 Ratio 05/17/2025 11:[facility] Blood Blood specimen / Unknown 05/17/2025 10:45 PM EDT 05/17/2025 11:03 PM EDT us Fabien Sullivan MD LAB BLOOD ORDERABLES Final Resul t [address] [address], [address] [address] * (ABNORMAL) Complete Blood Count, with Differential (05/17/2025 10:45 PM EDT) White Blood Cell Count 2.2(L) 4.0 - 11.0 Thou/uL 05/17/2025 11:16 PM EDT Platelet Count 173 150 - 450 Thou/uL 05/17/2025 11:16 PM [facility] Hemoglobin 11.3(L) 13.0 - 17.7 g/dL 05/17/2025 11:16 PM [facility] Hematocrit 33.8(L) 39.0 - 54.0 % 05/17/2025 11:16 PM [facility] Red Blood Cell Count 3.87(L) 4.50 - 6.20 Mil/uL 05/17/2025 11:16 PM [facility] MCV 87 80 - 100 fL 05/17/2025 11:16 PM [facility] MCH 29.2 27.0 - 31.0 pg 05/17/2025 11:16 PM [facility] MCHC 33.4 30.0 - 36.0 g/dL 05/17/2025 11:16 PM [facility] RDW 13.7 11.5 - 14.5 % 05/17/2025 11:16 PM [facility] MPV 9.1 7.5 - 12.5 fL 05/17/2025 11:16 [facility] Bands Man 2 % 05/18/2025 12:21 AM [facility] Neutrophils Man 33 % 12:21 AM [facility] Comment:Dohle Bodies present Lymphocytes Man 57 % 12:21 AM T Comment:Occasional reactive lymphocyte present. Monocytes Man 7 % 05/18/2025 12:21 AM EDT Eosinophils Man 1 % 12:21 AM EDT Abs Neutrophils Count (ANC) 0.8(L) 2.0 - 7.5 Thou/uL 05/18/2025 12:21 AM EDT Abs Lymphocytes Man 1.3(L) 1.5 - 4.5 Thou/uL 05/18/2025 12:21 AM EDT Abs Monocytes Man 0.2 0.2 - 1.5 Thou/uL 05/18/2025 12:21 AM EDT Abs Eosinophils Man 0.0 0.0 - 0.7 Thou/uL 05/18/2025 12:21 AM EDT Normochromic Present 05/18/2025 12:21 AM EDT Normocytic Present 05/18/2025 12:21 AM EDT Blood Blood specimen / Unknown 05/17/2025 10:45 PM EDT 05/17/2025 11:03 PM EDT us Fabien Sullivan MD LAB BLOOD [place] [address], [place] [address] * Type and Screen (05/17/2025 10:43 PM EDT) ABO/Rh O POSITIVE 05/17/2025 11:59 PM EDT Antibody Screen NEGATIVE 11:59 PM EDT Specimen Expiration 05/20/2025 05/17/2025 11:59 PM EDT Unit Number [id number] 05/18/2025 3:33 PM EDT Blood Component Type LEUKOREDUCED RED CELLS 05/18/2025 3:33 PM EDT Unit Division 00 05/18/2025 3:33 PM EDT Unit Status REL FROM ALLOC 12:18 AM EDT Transfusion Status OK TO TRANSFUSE 05/18/2025 3:33 PM EDT Crossmatch Result COMPATIBLE 05/18/2025 3:33 PM EDT Blood Blood specimen / Unknown 05/17/2025 10:43 PM EDT 05/17/2025 11:14 PM EDT Comment:Blood us Fabien Sullivan MD BLOOD BANK TEST ORDERABLES Final Result HOSPITAL LAB See Below [address] [place] [address] documented in this encounter Visit Diagnoses Diagnosis Large bowel obstruction (HCC)- Primary Unspecified intestinal obstruction Large bowel obstruction (HCC) Unspecified intestinal obstruction ADHD HTN (hypertension) Unspecified essential hypertension History of pulmonary embolus (PE) GERD (gastroesophageal reflux disease) Esophageal reflux Rectal cancer metastasized to liver (HCC) Anxiety Anxiety state, unspecified Severe malnutrition:Severe fat depletion(bicep/tricep fat pads) and severe muscle depletion (quadriceps and gastrocnemius) Nutritional marasmus documented in this encounter Admitting Diagnoses Diagnosis Large bowel obstruction (HCC) Unspecified intestinal obstruction documented in this encounter Administered Medications Inactive Administered Medications - up to 1 most recent administrations Medication Order MAR Action Action Date Dose Rate Site lactated ringers (LR) infusion 125 mL/hr, Intravenous, Continuous, Starting on Marie 05/17/25 at 2211, For 8 hours New Bag 05/17/2025 10:53 PM EDT 125 mL/hr 125 mL/hr lactated ringers (LR) infusion 100 mL/hr, Intravenous, Continuous, Starting on Marie 05/17/25 at 2346, For 24 hours New Bag 05/18/2025 9:37 PM EDT 100 mL/hr 100 mL/hr lactated ringers (LR) infusion 100 mL/hr, Intravenous, Continuous, Starting on 05/19/25 at 1130, For 9 hours New Bag 05/19/2025 3:14 PM EDT 100 mL/hr 100 mL/hr lactated ringers (LR) infusion 100 mL/hr, Intravenous, Continuous, Starting on 05/19/25 at 2230, For 9 hours New Bag 05/19/2025 10:50 PM EDT 100 mL/hr 100 mL/hr lactated ringers (LR) infusion 100 mL/hr, Intravenous, Continuous, Starting on Wed05/20/25 at 1230, For 9 hours New Bag 05/20/2025 1:50 PM EDT 100 mL/hr 100 mL/hr lactated ringers (LR) infusion 50 mL/hr, Intravenous, Continuous, Starting on Wed05/21/25 at 1200 New Bag 05/21/2025 12:25 PM EDT 50 mL/hr 50 mL/hr sodium chloride 0.9% (NS) infusion 50 mL/hr, Intravenous, Continuous, Starting on Wed05/21/25 at 1830 New Bag 05/21/2025 6:37 PM EDT 50 mL/hr 50 mL/hr acetaminophen (OFIRMEV) injection 1,000 mg 1,000 mg, Intravenous, at 400 mL/hr, Every 8 hours, First dose on Wed05/19/25 at 1130, For 1 day New Bag 05/19/2025 6:32 PM EDT 1,000 mg 400 mL/hr acetaminophen (TYLENOL) tablet 650 mg 650 mg, Oral, Every 6 hours scheduled, First dose (after last modification) on Wed05/22/25 at 0600 Given 05/29/2025 12:22 PM EST 650 mg amLODIPine (NORVASC) tablet 5 mg 5 mg, Oral, Nightly, First dose on Marie 05/17/25 at 2351, Hold for SBP less than 100 mmHg. Notify provider if a dose is held. Given 05/28/2025 8:32 PM EST 5 mg amoxicillin-clavulana te (AUGMENTIN) 875-125 MG per tablet 1 tablet 1 tablet, Oral, Every 12 hours scheduled, First dose on Wed05/28/25 at 2100, All antimicrobials used at [facility] require an indication. Please complete the following documentation. Bacterial Infection Suspected, Type of Therapy: New Therapy, Indication: Cellulitis Given 05/29/2025 9:36 AM EST 1 tablet apixaban (ELIQUIS) tablet 5 mg 5 mg, Oral, Every 12 hours scheduled, First dose on Marie 05/17/25 at 2351, Tablets may be crushed and suspended in 60 mL of water, D5W, or apple juice or mixed with applesauce; administer immediately. For delivery through a nasogastric tube, crushed tablets may be suspended in 60 mL of water or D5W followed by immediate delivery., Indication for Anticoagulation: PE - reduce risk of recurrence, On hold since Wed05/18/2025 at 0832 until manually unheld Given 05/18/2025 12:30 AM EDT 5 mg apixaban (ELIQUIS) tablet 5 mg 5 mg, Oral, Every 12 hours scheduled, First dose (after last reorder) on Wed05/18/25 at 0900, Tablets may be crushed and suspended in 60 mL of water, D5W, or apple juice or mixed with applesauce; administer immediately. For delivery through a nasogastric tube, crushed tablets may be suspended in 60 mL of water or D5W followed by immediate delivery., Indication for Anticoagulation: PE - reduce risk of recurrence Given 05/29/2025 9:36 AM EST 5 mg cefepime (MAXIPIME) 2 g in sodium chloride-MBP (NS) 100 mL IVPB-MBP 2 g, Intravenous, Administer over 3 Hours, Every 8 hours scheduled, First dose on Marie 05/24/25 at 1700, All antimicrobials used at [facility] require an indication. Please complete the following documentation. Other, Specify: surgical skin infection New Bag 05/28/2025 3:00 PM EST 2 g 33.3 mL/hr chlorhexidine gluconate 2 % wipes - daily CHG application Topical, Daily, First dose on [facility] 05/19/25 at 0900, For daily use in patients with Urethral Catheter, Central Line, Monreal, or Port-a-Cath. Each pack = 6 wipes. Dose = 1 each. Given 05/28/2025 6:31 AM EST 1 each clonazePAM (KlonoPIN) tablet 1 mg 1 mg, Oral, Nightly, First dose on Marie 05/17/25 at 2351, Hazardous Level Medium B Special Handling See Hazardous Medication Policy & Procedures for more information. Given 05/28/2025 8:32 PM EST 1 mg heparin (porcine) 5000 unit/mL injection 5,000 Units 5,000 Units, Subcutaneous, Every 8 hours scheduled, First dose on [facility] 05/19/25 at 1400, For subcutaneous use the injection sites should be rotated (usually left and right portions of the abdomen, above iliac crest). Given 05/20/2025 6:01 AM EDT 5,000 Units Left Anterior Thigh heparin (porcine) 5000 unit/mL injection 5,000 Units 5,000 Units, Subcutaneous, Every 8 hours scheduled, First dose on Marie 05/24/25 at 1730, For subcutaneous use the injection sites should be rotated (usually left and right portions of the abdomen, above iliac crest). Given 05/26/2025 8:54 AM EDT 5,000 Units Left Arm heparin (porcine) IV infusion 25,000 units in 500 mL 0.45% NaCl (premix) 26.28 mL/hr (15 Units/kg/hr 87.6 kg), Intravenous, Continuous, Starting on Wed05/18/25 at 0900, HEPARIN THROMBOEMBOLIC/STANDA RD/FULL DOSE PROTOCOL: Initial Infusion Dose: See dose above, MAX initial dose 1,800 units/hr (120 kg and above) Dose adjustment instructions: - Obtain a Heparin Anti-factor Xa (Anti-Xa) level 6 hours after start of infusion and 6 hours after every dose change. - Once patient is within therapeutic range for two consecutive Anti-Xa measurements, then obtain Anti-Xa daily with AM labs until infusion is discontinued. When heparin infusion is interrupted: - For less than or equal to 90 minutes: ~ Restart heparin infusion at the most recent dose and draw Anti-Xa level in 6 hours from restart. ~ No bolus required. Adjust per protocol. - For greater than 90 minutes or if heparin interruption for unknown time period: ~ Draw stat Anti-Xa level (Do not adjust infusion dose based on this Anti-Xa result). ~ Restart heparin infusion at most recent dose (most recent dose may be anytime during the patient's current admission). ~ Notify licensed practioner regarding interruption and discuss if IV bolus is necessary; licensed practioner to consider ordering IV bolus if greater than 6 hours heparin interruption. ~ Draw Anti-Xa in 6 hours and proceed per protocol. - Document all pertinent communications with providers in the patient's record. - Adjust infusion based on Anti-Xa result per Standard protocol table: Concentration = 50 units/mL, Indication for Anticoagulation: VTE Prophylaxis New Bag 05/22/2025 7:12 PM EDT 15 Units/kg/hr 26.28 mL/hr heparin (porcine) IV infusion 25,000 units in 500 mL 0.45% NaCl (premix) 24.27 mL/hr (15 Units/kg/hr 80.9 kg), Intravenous, Continuous, Starting on Wed05/26/25 at 1300, HEPARIN THROMBOEMBOLIC/STANDA RD/FULL DOSE PROTOCOL: Initial Infusion Dose: See dose above, MAX initial dose 1,800 units/hr (120 kg and above) Dose adjustment instructions: - Obtain a Heparin Anti-factor Xa (Anti-Xa) level 6 hours after start of infusion and 6 hours after every dose change. - Once patient is within therapeutic range for two consecutive Anti-Xa measurements, then obtain Anti-Xa daily with AM labs until infusion is discontinued. When heparin infusion is interrupted: - For less than or equal to 90 minutes: ~ Restart heparin infusion at the most recent dose and draw Anti-Xa level in 6 hours from restart. ~ No bolus required. Adjust per protocol. - For greater than 90 minutes or if heparin interruption for unknown time period: ~ Draw stat Anti-Xa level (Do not adjust infusion dose based on this Anti-Xa result). ~ Restart heparin infusion at most recent dose (most recent dose may be anytime during the patient's current admission). ~ Notify licensed practioner regarding interruption and discuss if IV bolus is necessary; licensed practioner to consider ordering IV bolus if greater than 6 hours heparin interruption. ~ Draw Anti-Xa in 6 hours and proceed per protocol. - Document all pertinent communications with providers in the patient's record. - Adjust infusion based on Anti-Xa result per Standard protocol table: Concentration = 50 units/mL, Indication for Anticoagulation: VTE Treatment New Bag 05/29/2025 12:55 AM EST 15 Units/kg/hr 24.27 mL/hr HYDROmorphone (DILAUDID) 1 mg/mL STAGE SETTINGS PAINTER syringe (premix) Intravenous, STAGE SETTINGS PAINTER dose (mg): 0.2, Lockout interval: 10 min, Continuous rate (mg/hr): 0, Max limit in four hours (mg): 4.8, Loading dose (mg): 0 New Syringe/Cartr idge 05/19/2025 11:59 AM EDT HYDROmorphone (DILAUDID) 2 mg/mL injection 0.2 mg 0.2 mg, Intravenous, Every 10 min PRN, moderate to moderately severe pain 4-6, Starting on 05/19/25 at 1031, For 7 days, PACU (only), If a total of 2 mg has been administered across all pain scales, contact an anesthesia provider for reassessment For IV Push, administer over 2 to 3 minutes. Given 05/19/2025 11:19 AM EDT 0.2 mg HYDROmorphone (DILAUDID) 2 mg/mL injection 0.4 mg 0.4 mg, Intravenous, Every 10 min PRN, severe to excruciating pain 7-10, Starting on 05/19/25 at 1031, For 7 days, PACU (only), If a total of 2 mg has been administered across all pain scales, contact an anesthesia provider for reassessment For IV Push, administer over 2 to 3 minutes. Given 05/19/2025 11:41 AM EDT 0.4 mg HYDROmorphone (DILAUDID) injection 1 mg 1 mg, Intravenous, Every 3 hours PRN, severe to excruciating pain 7-10, Starting on 05/18/25 at 0426, For 7 days, Patient is judged to be a standard adult Use ONLY if patient cannot tolerate PO For IV Push, administer over 2 to 3 minutes. Given 05/19/2025 4:38 AM EDT 1 mg iohexol (OMNIPAQUE) 350 mg/mL injection 80 mL 80 mL, Intravenous, Once in imaging, contrast, Starting on Marie 05/24/25 at 1233, For 1 dose, Radiology Appointment Given 05/24/2025 12:33 PM EDT 80 mL iohexol (OMNIPAQUE) 350 mg/mL injection 80 mL 80 mL, Intravenous, Once in imaging, contrast, Starting on 05/28/25 at 1053, For 1 dose, Radiology Appointment Given 05/28/2025 10:53 AM EST 80 mL lamoTRIgine (LaMICtal) tablet 300 mg 300 mg, Oral, Daily, First dose on Wed05/18/25 at 0900, Was the last dose administered within the last 5 days? Yes Given 05/29/2025 9:36 AM EST 300 mg magnesium sulfate IVPB 1 g in 100 mL D5W (premix) 1 g, Intravenous, Administer over 30 Minutes, Once, On 05/20/25 at 0930, For 1 dose New Bag 05/20/2025 10:53 AM EDT 1 g 200 mL/hr magnesium sulfate IVPB 2 g in 50 mL SW PREMIX 2 g, Intravenous, Administer over 60 Minutes, Once, On Mon /27/25 at 0900, For 1 dose New 05/21/2025 11:05 AM EDT 2 g 50 mL/hr magnesium sulfate IVPB 2 g in 50 mL SW PREMIX 2 g, Intravenous, Administer over 60 Minutes, Once, On Wed05/22/25 at 0630, For 1 dose New 05/22/2025 6:45 AM EDT 2 g 50 mL/hr methocarbamol (ROBAXIN) tablet 500 mg 500 mg, Oral, 4 times daily, First dose on Wed05/23/25 at 1500 Given 05/29/2025 12:22 PM EST 500 mg methylphenidate (CONCERTA) 24 hr tablet 18 mg 18 mg, Oral, Daily, First dose on Wed05/18/25 at 0900, For 13 doses, *Swallow whole; DO NOT Divide, Crush, or Chew* Given 05/29/2025 9:36 AM EST 18 mg metoPROLOL SUCCINATE (TOPROL-XL) 24 hr tablet 50 mg 50 mg, Oral, Daily, First dose on Wed05/18/25 at 0900, Hold for HR less than 45 bpm and/or SBP less than 90 mmHg. Notify provider if a dose is held. *DO NOT CHEW OR CRUSH* Given 05/29/2025 9:36 AM EST 50 mg metroNIDAZOLE (FLAGYL) IVPB 500 mg in 100 mL NS (premix) 500 mg, Intravenous, Administer over 60 Minutes, Every 12 hours, First dose on Wed05/24/25 at 1630, All antimicrobials used at [facility] require an indication. Please complete the following documentation. Other, Specify: surgical skin infection New 05/28/2025 10:52 AM EST 500 mg 100 mL/hr morphine preservative free 4 mg/mL injection 4 mg 4 mg, Intravenous, Once, On Marie 05/17/25 at 2346, For 1 dose, For IV Push, dilute to 10 mL NS and administer over 4 minutes. Given 05/18/2025 12:30 AM EDT 4 mg oxyCODONE (ROXICODONE) immediate release tablet 10 mg 10 mg, Oral, Every 4 hours PRN, severe to excruciating pain 7-10, Starting on Wed05/22/25 at 1608, For 7 days Given 05/29/2025 12:23 PM EST 10 mg oxyCODONE (ROXICODONE) immediate release tablet 5 mg 5 mg, Oral, Every 4 hours PRN, moderate to moderately severe pain 4-6, Starting on Wed05/22/25 at 1608, For 7 days Given 05/28/2025 6:23 AM EST 5 mg PANTOprazole (PROTONIX) injection 40 mg 40 mg, Intravenous, Daily, First dose on Wed05/19/25 at 0900, Reconstitute each 40 mg vial with 10 ml NS and administer over 2 minutes Given 05/29/2025 9:35 AM EST 40 mg PANTOprazole (PROTONIX) injection 80 mg 80 mg, Intravenous, Once, On Marie 05/17/25 at 2351, For 1 dose, Reconstitute each 40 mg vial with 10 ml NS and administer over 2 minutes Given 05/18/2025 1:09 AM EDT 80 mg phenol (CHLORASEPTIC) 1.4 % spray 1 spray 1 spray, Mouth/Throat, Every 2 hours PRN, sore throat, Starting on Wed05/18/25 at 0911 potassium chloride (KLOR-CON M20) CR tablet 20 mEq 20 mEq, Oral, Every 2 hours, First dose on Wed05/22/25 at 0630, For 3 doses, Swallow tablets whole; do not crush, chew, or suck on tablet. Take with meals and a full glass of water or other liquid to minimize the risk of GI irritation. Given 05/22/2025 12:03 PM EDT 20 mEq potassium chloride IVPB 10 mEq in 100 mL SW (premix) 10 mEq, Intravenous, at 100 mL/hr, Once, On Wed05/19/25 at 0900, For 1 dose New 05/19/2025 3:10 PM EDT 10 mEq 100 mL/hr potassium chloride IVPB 10 mEq in 100 mL SW (premix) 10 mEq, Intravenous, at 100 mL/hr, Once, On Wed05/19/25 at 1000, For 1 dose New 05/19/2025 4:53 PM EDT 10 mEq 100 mL/hr potassium chloride IVPB 10 mEq in 100 mL SW (premix) 10 mEq, Intravenous, at 100 mL/hr, Once, On Wed05/19/25 at 1100, For 1 dose New Bag 05/19/2025 5:17 PM EDT 10 mEq 100 mL/hr potassium chloride IVPB 10 mEq in 100 mL SW (premix) 10 mEq, Intravenous, at 100 mL/hr, Once, On Wed05/20/25 at 0930, For 1 dose New Bag 05/20/2025 1:49 PM EDT 10 mEq 100 mL/hr potassium chloride IVPB 10 mEq in 100 mL SW (premix) 10 mEq, Intravenous, at 100 mL/hr, Once, On Wed05/20/25 at 1030, For 1 dose New 05/20/2025 3:37 PM EDT 10 mEq 100 mL/hr potassium chloride IVPB 10 mEq in 100 mL SW (premix) 10 mEq, Intravenous, at 100 mL/hr, Once, On Wed05/20/25 at 1130, For 1 dose New 05/20/2025 5:50 PM EDT 10 mEq 100 mL/hr potassium chloride IVPB 20 mEq in 100 mL SW premix (central line) 20 mEq, Intravenous, at 100 mL/hr, Once, On Wed05/21/25 at 1130, For 1 dose, FOR CENTRAL LINE ADMINISTRATION ONLY Cardiac monitoring required when administering more than 10 mEq/hr New Bag 05/21/2025 2:26 PM EDT 20 mEq 100 mL/hr potassium chloride IVPB 20 mEq in 100 mL SW premix (central line) 20 mEq, Intravenous, at 100 mL/hr, Once, On Wed05/21/25 at 1230, For 1 dose, FOR CENTRAL LINE ADMINISTRATION ONLY Cardiac monitoring required when administering more than 10 mEq/hr New Bag 05/21/2025 3:53 PM EDT 20 mEq 100 mL/hr potassium chloride IVPB 20 mEq in 100 mL SW premix (central line) 20 mEq, Intravenous, at 100 mL/hr, Once, On Wed05/22/25 at 0630, For 1 dose, FOR CENTRAL LINE ADMINISTRATION ONLY Cardiac monitoring required when administering more than 10 mEq/hr New Bag 05/22/2025 10:54 AM EDT 20 mEq 100 mL/hr potassium chloride IVPB 20 mEq in 100 mL SW premix (central line) 20 mEq, Intravenous, at 100 mL/hr, Once, On Wed05/22/25 at 0730, For 1 dose, FOR CENTRAL LINE ADMINISTRATION ONLY Cardiac monitoring required when administering more than 10 mEq/hr New Bag 05/22/2025 12:04 PM EDT 20 mEq 100 mL/hr potassium chloride IVPB 20 mEq in 100 mL SW premix (central line) 20 mEq, Intravenous, at 100 mL/hr, Once, On Wed05/22/25 at 0830, For 1 dose, FOR CENTRAL LINE ADMINISTRATION ONLY Cardiac monitoring required when administering more than 10 mEq/hr New Bag 05/22/2025 1:11 PM EDT 20 mEq 100 mL/hr potassium chloride IVPB 20 mEq in 100 mL SW premix (central line) 20 mEq, Intravenous, at 100 mL/hr, Once, On Wed05/22/25 at 0930, For 1 dose, FOR CENTRAL LINE ADMINISTRATION ONLY Cardiac monitoring required when administering more than 10 mEq/hr New Bag 05/22/2025 2:17 PM EDT 20 mEq 100 mL/hr potassium phosphate and sodium phosphate (K PHOS NEUTRAL) tablet 250 mg 250 mg, Oral, 4 times daily with meals and nightly, First dose on Wed05/21/25 at 1830, For 4 doses, Administer with a full glass of water. Each tablet contains elemental phosphorus 250 mg (8 mmol), sodium 298 mg (13 mEq), and potassium 45 mg (1.1 mEq). Given 05/22/2025 10:42 AM EDT 250 mg potassium phosphate and sodium phosphate (PHOS-NAK) packet 2 packet 2 packet, Oral, Once, On Wed05/23/25 at 0900, For 1 dose, Each packet contains 250 mg elemental phosphorus (8 mmol), sodium 160 mg (6.9 mEq), and potassium 280 mg (7.1 mEq). Given 05/23/2025 9:45 AM EDT 2 packets POTASSIUM phosphate IVPB 15 mmol in 250 mL NS (premix) 15 mmol, Intravenous, at 83.3 mL/hr, Once, On Wed05/19/25 at 0800, For 1 dose New Bag 05/19/2025 3:10 PM EDT 15 mmol 83.3 mL/hr POTASSIUM phosphate IVPB 15 mmol in 250 mL NS (premix) 15 mmol, Intravenous, at 83.3 mL/hr, Once, On Wed05/20/25 at 1230, For 1 dose New Bag 05/20/2025 9:15 PM EDT 15 mmol 83.3 mL/hr POTASSIUM phosphate IVPB 15 mmol in 250 mL NS (premix) 15 mmol, Intravenous, at 83.3 mL/hr, Once, On Wed05/21/25 at 1830, For 1 dose New Bag 05/21/2025 10:05 PM EDT 15 mmol 83.3 mL/hr POTASSIUM phosphate IVPB 30 mmol in 500 mL NS (premix) 30 mmol, Intravenous, at 83.3 mL/hr, Once, On Wed05/21/25 at 0900, For 1 dose New 05/21/2025 12:25 PM EDT 30 mmol 83.3 mL/hr POTASSIUM phosphate IVPB 30 mmol in 500 mL NS (premix) 30 mmol, Intravenous, at 83.3 mL/hr, Once, On Wed05/22/25 at 0630, For 1 dose New 05/22/2025 1:30 PM EDT 30 mmol 83.3 mL/hr risperiDONE (RisperDAL) tablet 1 mg 1 mg, Oral, Nightly, First dose on Wed05/17/25 at 2351 Given 05/28/2025 8:32 PM EST 1 mg vancomycin (VANCOCIN) IVPB 1750 mg in 500 mL NS (premix) 1,750 mg, Intravenous, Administer over 120 Minutes, Every 12 hours, First dose on Wed05/25/25 at 0500, All antimicrobials used at [facility] require an indication. Please complete the following documentation. Bacterial Infection Suspected, Type of Therapy: New Therapy, Indication: Surgical Site New Bag 05/28/2025 12:02 PM EST 1,750 mg 267.5 mL/hr vancomycin (VANCOCIN) IVPB 2000 mg in 500 mL NS (premix) 2,000 mg, Intravenous, Administer over 120 Minutes, Once, On Marie 05/24/25 at 1700, For 1 dose, All antimicrobials used at [facility] require an indication. Please complete the following documentation. Bacterial Infection Suspected, Type of Therapy: New Therapy, Indication: Cellulitis, Surgical Site New Bag 05/24/2025 9:29 PM EDT 2,000 mg 270 mL/hr documented in this encounter Active and Recently Administered Medications Due to Daylight Saving Time, this section may contain times in both EDT and EST. Scheduled Medication Order 05/27/2025 05/28/2025 05/29/2025 acetaminophen (TYLENOL) tablet 650 mg 650 mg, Oral, Every 6 hours scheduled, First dose (after last modification) on Wed05/22/25 at 0600 0538 (Given - Provider: Francoise Pierce RN)1226 (Given - Provider: Saravanan Herrera, ANAYA)1842 (Given - Provider: Saravanan Herrera RN) 0003 (Given - Provider: Francoise Pierce RN)0623 (Given - Provider: Francoise Pierce RN)1316 (Given - Provider: Kenia Arevalo, ANAYA)1814 (Given - Provider: Rome Wilkerson, ANAYA) 0056 (Given - Provider: Hanna Ji, ANAYA)0525 (Given - Provider: Hanna Ji RN)1222 (Given - Provider: Rome Wilkerson RN) amLODIPine (NORVASC) tablet 5 mg 5 mg, Oral, Nightly, First dose on Marie 05/17/25 at 2351, Hold for SBP less than 100 mmHg. Notify provider if a dose is held. 2037 (Given - Provider: Francoise Pierce RN) 2031 (Given - Provider: Hanna Ji RN) amoxicillin-clavulanate (AUGMENTIN) 875-125 MG per tablet 1 tablet 1 tablet, Oral, Every 12 hours scheduled, First dose on Wed05/28/25 at 2100, All antimicrobials used at [facility] require an indication. Please complete the following documentation. Bacterial Infection Suspected, Type of Therapy: New Therapy, Indication: Cellulitis 2031 (Given - Provider: Hanna Ji RN) 0936 (Given - Provider: Kenia Arevalo RN) apixaban (ELIQUIS) tablet 5 mg 5 mg, Oral, Every 12 hours scheduled, First dose (after last reorder) on Wed05/18/25 at 0900, Tablets may be crushed and suspended in 60 mL of water, D5W, or apple juice or mixed with applesauce; administer immediately. For delivery through a nasogastric tube, crushed tablets may be suspended in 60 mL of water or D5W followed by immediate delivery., Indication for Anticoagulation: PE - reduce risk of recurrence 0900 (Dose Auto Held - Provider: Radha Gay MD)2100 (Dose Auto Held - Provider: Radha Gay MD) 0900 (Dose Auto Held - Provider: Radha Gay MD)2100 (Not Given - Provider: Hanna Ji RN - Reason: See Provider Order) 0753 (Provider Unheld - Provider: Kaylene Starr APRN)0936 (Given - Provider: Kenia Arevalo, ANAYA) cefepime (MAXIPIME) 2 g in sodium chloride-MBP (NS) 100 mL IVPB-MBP (CANCELED) 2 g, Intravenous, Administer over 3 Hours, Every 8 hours scheduled, First dose on Marie 05/24/25 at 1700, All antimicrobials used at [facility] require an indication. Please complete the following documentation. Other, Specify: surgical skin infection 0034 (Stopped - Provider: Francoise Pierce RN)0401 (New Bag - Provider: Francoise Pierce RN)0701 (Stopped - Provider: Saravanan Herrera RN)1228 (New Bag - Provider: Saravanan Herrera RN)1528 (Stopped - Provider: Saravanan Herrera RN)2038 (New Bag - Provider: Francoise Pierce RN)2338 (Stopped - Provider: Francoise Pierce RN) 0432 (New Bag - Provider: Francoise Pierce RN)0747 (Stopped - Provider: Rome Wilkerson, ANAYA)1500 (New Bag - Provider: Rome Wilkerson RN)1735 (Stopped - Provider: Rome Wilkerson RN) chlorhexidine gluconate 2 % wipes - daily CHG application Topical, Daily, First dose on 05/19/25 at 0900, For daily use in patients with Urethral Catheter, Central Line, Monreal, or Port-a-Cath. Each pack = 6 wipes. Dose = 1 each. 0628 (Given - Provider: Francoise Pierce RN)0900 (Canceled Entry - Provider: Francoise Pierce RN - Comment: already completed) 0631 (Given - Provider: Francoise Pierce RN)0900 (Canceled Entry - Provider: Francoise Pierce RN - Comment: already given) 0937 (Not Given - Provider: Kenia Arevalo RN - Reason: Dose held per order parameters) clonazePAM (KlonoPIN) tablet 1 mg 1 mg, Oral, Nightly, First dose on Marie 05/17/25 at 2351, Hazardous Level Medium B Special Handling See Hazardous Medication Policy & Procedures for more information. 2037 (Given - Provider: Francoise Pierce RN) 2031 (Given - Provider: Hanna Ji, ANAYA) lamoTRIgine (LaMICtal) tablet 300 mg 300 mg, Oral, Daily, First dose on Wed05/18/25 at 0900, Was the last dose administered within the last 5 days? Yes 0854 (Given - Provider: Saravanan Herrera RN) 1052 (Given - Provider: Rome Wilkerson, ANAYA) 0936 (Given - Provider: Kenia Arevalo, ANAYA) methocarbamol (ROBAXIN) tablet 500 mg 500 mg, Oral, 4 times daily, First dose on Wed05/23/25 at 1500 0400 (Given - Provider: Francoise Pierce RN)0854 (Given - Provider: Saravanan Herrera RN)1554 (Given - Provider: Saravanan Herrera RN)2037 (Given - Provider: Francoise Pierce RN) 0432 (Given - Provider: Francoise Pierce, ANAYA)1052 (Given - Provider: Rome Wilkerson, ANAYA)1814 (Given - Provider: Rome Wilkerson, ANAYA) 0057 (Given - Provider: Hanna Ji, ANAYA)0525 (Given - Provider: Hanna Ji, ANAYA)1222 (Given - Provider: Rome Wilkerson, ANAYA) methylphenidate (CONCERTA) 24 hr tablet 18 mg 18 mg, Oral, Daily, First dose on Wed05/18/25 at 0900, For 13 doses, *Swallow whole; DO NOT Divide, Crush, or Chew* 0855 (Given - Provider: Saravanan Herrera RN) 1053 (Given - Provider: Rome Wilkerson, ANAYA) 0936 (Given - Provider: Kenia Arevalo, ANAYA) metoPROLOL SUCCINATE (TOPROL-XL) 24 hr tablet 50 mg 50 mg, Oral, Daily, First dose on Wed05/18/25 at 0900, Hold for HR less than 45 bpm and/or SBP less than 90 mmHg. Notify provider if a dose is held. *DO NOT CHEW OR CRUSH* 0854 (Given - Provider: Saravanan Herrera RN) 1052 (Given - Provider: Rome Wilkerson, RN) 0936 (Given - Provider: Kenia Arevalo, ANAYA) metroNIDAZOLE (FLAGYL) IVPB 500 mg in 100 mL NS (premix) (CANCELED) 500 mg, Intravenous, Administer over 60 Minutes, Every 12 hours, First dose on Marie 05/24/25 at 1630, All antimicrobials used at [facility] require an indication. Please complete the following documentation. Other, Specify: surgical skin infection 0854 (New Bag - Provider: Saravanan Herrera RN)0954 (Stopped - Provider: Saravanan Herrera RN)2037 (New Bag - Provider: Francoise Pierce RN)2137 (Stopped - Provider: Francoise Pierce RN) 1052 (New Bag - Provider: Rome Wilkerson, ANAYA)1152 (Stopped - Provider: Rome Wilkerson, ANAYA) PANTOprazole (PROTONIX) injection 40 mg 40 mg, Intravenous, Daily, First dose on 05/19/25 at 0900, Reconstitute each 40 mg vial with 10 ml NS and administer over 2 minutes 0854 (Given - Provider: Saravanan Herrera RN) 1052 (Given - Provider: Rome Wilkerson, ANAYA) 0935 (Given - Provider: Kenia Arevalo, ANAYA) risperiDONE (RisperDAL) tablet 1 mg 1 mg, Oral, Nightly, First dose on Marie 05/17/25 at 2351 2037 (Given - Provider: Francoise Pierce RN) 2031 (Given - Provider: Hanna Ji RN) vancomycin (VANCOCIN) IVPB 1750 mg in 500 mL NS (premix) (CANCELED) 1,750 mg, Intravenous, Administer over 120 Minutes, Every 12 hours, First dose on Wed05/25/25 at 0500, All antimicrobials used at [facility] require an indication. Please complete the following documentation. Bacterial Infection Suspected, Type of Therapy: New Therapy, Indication: Surgical Site 0041 (Stopped - Provider: Francoise Pierce RN)1100 (New Bag - Provider: Saravanan Herrera RN)1300 (Stopped - Provider: Saravanan Herrera RN)2225 (New Bag - Provider: Francoise Pierce RN) 0025 (Stopped - Provider: Francoise Pierce RN)1202 (New Bag - Provider: Rome Wilkerson, RN)1428 (Stopped - Provider: Rome Wilkerson, RN) Continuous Medication Order 05/27/2025 05/28/2025 05/29/2025 heparin (porcine) IV infusion 25,000 units in 500 mL 0.45% NaCl (premix) (CANCELED) 24.27 mL/hr (15 Units/kg/hr 80.9 kg), Intravenous, Continuous, Starting on 05/26/25 at 1300, HEPARIN THROMBOEMBOLIC/STANDARD/F ULL DOSE PROTOCOL: Initial Infusion Dose: See dose above, MAX initial dose 1,800 units/hr (120 kg and above) Dose adjustment instructions: - Obtain a Heparin Anti-factor Xa (Anti-Xa) level 6 hours after start of infusion and 6 hours after every dose change. - Once patient is within therapeutic range for two consecutive Anti-Xa measurements, then obtain Anti-Xa daily with AM labs until infusion is discontinued. When heparin infusion is interrupted: - For less than or equal to 90 minutes: ~ Restart heparin infusion at the most recent dose and draw Anti-Xa level in 6 hours from restart. ~ No bolus required. Adjust per protocol. - For greater than 90 minutes or if heparin interruption for unknown time period: ~ Draw stat Anti-Xa level (Do not adjust infusion dose based on this Anti-Xa result). ~ Restart heparin infusion at most recent dose (most recent dose may be anytime during the patient's current admission). ~ Notify licensed practioner regarding interruption and discuss if IV bolus is necessary; licensed practioner to consider ordering IV bolus if greater than 6 hours heparin interruption. ~ Draw Anti-Xa in 6 hours and proceed per protocol. - Document all pertinent communications with providers in the patient's record. - Adjust infusion based on Anti-Xa result per Standard protocol table: Concentration = 50 units/mL, Indication for Anticoagulation: VTE Treatment 0716 (Handoff - Provider: Saravanan Herrera RN)0904 (New Bag - Provider: Saravanan Herrera RN)1913 (Handoff - Provider: Francoise Pierce RN) 0431 (New Bag - Provider: Francoise Pierce RN)0715 (Handoff - Provider: Francoise Pierce RN)1943 (Handoff - Provider: Hanna Ji, RN) 0055 (New Bag - Provider: Hanna Ji, RN)0703 (Handoff - Provider: Rome Wilkerson, RN)0831 (Stopped - Provider: Kenia Arevalo, RN) PRN Medication Order 05/27/2025 05/28/2025 05/29/2025 iohexol (OMNIPAQUE) 350 mg/mL injection 80 mL (COMPLETED) 80 mL, Intravenous, Once in imaging, contrast, Starting on Wed05/28/25 at 1053, For 1 dose, Radiology Appointment 1053 (Given - Provider: Lesly Stuart RT) naloxone (NARCAN) 0.4 mg/mL injection 0.4 mg 0.4 mg, Intravenous, Every 5 min PRN, opioid reversal, respiratory depression, Starting on 05/19/25 at 1220, If respiratory rate is less than 8 breaths/minute or patient is difficult to arouse. Stop all narcotics and contact provider. ondansetron (ZOFRAN) injection 4 mg 4 mg, Intravenous, Every 6 hours PRN, nausea, vomiting, Starting on 05/19/25 at 1220 oxyCODONE (ROXICODONE) immediate release tablet 10 mg(Linked Group 1) 10 mg, Oral, Every 4 hours PRN, severe to excruciating pain 7-10, Starting on Wed05/22/25 at 1608, For 7 days 0904 (Given - Provider: Saravanan Herrera RN)1554 (Given - Provider: Saravanan Herrera RN)2038 (Given - Provider: Francoise Pierce RN) 0035 (Given - Provider: Francoise Pierce RN)0623 (See Alternative - Provider: Francoise Pierce RN)1059 (Given - Provider: Rome Wilkerson, RN)1814 (Given - Provider: Rome Wilkerson, RN) 1223 (Given - Provider: Rome Wilkerson, RN) oxyCODONE (ROXICODONE) immediate release tablet 5 mg(Linked Group 1) 5 mg, Oral, Every 4 hours PRN, moderate to moderately severe pain 4-6, Starting on Wed05/22/25 at 1608, For 7 days 0904 (See Alternative - Provider: Saravanan Herrera RN)1554 (See Alternative - Provider: Saravanan Herrera, ANAYA)2038 (See Alternative - Provider: Francoise Pierce, ANAYA) 0035 (See Alternative - Provider: Francoise Pierce, ANAYA)0623 (Given - Provider: Francoise Pierce, RN)1059 (See Alternative - Provider: Rome Wilkerson, RN)1814 (See Alternative - Provider: Rome Wilkerson, RN) 1223 (See Alternative - Provider: Rome Wilkerson, RN) phenol (CHLORASEPTIC) 1.4 % spray 1 spray 1 spray, Mouth/Throat, Every 2 hours PRN, sore throat, Starting on Wed05/18/25 at 0911 Linked Groups Order Group 1: oxyCODONE (ROXICODONE) immediate release tablet 5 mgJump to med 5 mg, Oral, Every 4 hours PRN, moderate to moderately severe pain 4-6, Starting on Wed05/22/25 at 1608, For 7 days Or oxyCODONE (ROXICODONE) immediate release tablet 10 mgJump to med 10 mg, Oral, Every 4 hours PRN, severe to excruciating pain 7-10, Starting on Wed05/22/25 at 1608, For 7 days documented in this encounter Care Teams Frame Trimmer Relationship Specialty Start Date End Date Unknown Unknow Provider Address PCP - General 05/17/25 05/17/25 Hemanth Wolfe MD [address] [place] [address] PCP - General Medical Oncology 05/18/25 documented as of this encounter
--- NOTE | 2025-05-30 11:38 | A.OFFPC_ITS ---
Vital Signs 05/30/25 11:39 Height 6 ft 2 in Weight 183 lb BMI 23.5 BP 100/66 Blood Pressure Location Lt brachial Position Sitting Pulse 77 Pulse Source Pulse Oximeter Temp 97.3 F Temp Source Temporal Artery Scan Pulse Oximetry (%) 98 Oxygen Delivery Method Room Air Intake Visit Reasons: New Patient / TCM [facility] Required: No Accompanied by: Spouse Allergies No Known Allergies (No Known Allergies*) Allergy (Verified 05/30/25 11:39) Medication List - Last Reconciled 05/30/25 by Josesito Steve MD acetaminophen mg PO amlodipine 5 mg PO BEDTIME amoxicillin-pot clavulanate 875-125 mg 1 tab PO BID apixaban (Eliquis) 5 mg PO BID@0500,1700 clonazepam 1 mg PO BEDTIME diphenoxylate-atropine 2.5-0.025 mg (Lomotil) 1 tab PO DAILY PRN lamotrigine 300 mg PO DAILY magnesium oxide 400 mg PO DAILY methocarbamol mg PO methylphenidate HCl 10 mg PO DAILY methylphenidate HCl ER 54 mg PO DAILY metoprolol succinate ER 50 mg PO DAILY ondansetron 8 mg PO Q8H PRN oxycodone 5 mg PO Q8H PRN potassium chloride ER 20 mEq (2 x 10 mEq) PO DAILY risperidone (Risperdal) 1 mg PO BEDTIME simethicone 80 mg PO BID PRN Tobacco use date assessed: 05/30/25 Dental Screening Dental Screen Date: 05/30/25 Did you have a dental visit in the last 12 months?: No Did you have a dental problem in the last 6 months where you did not have access to dental care?: No HPI HPI Comments History of Present Illness Details The patient is a 60-year-old male presenting as a new patient for continuity of care and management of chronic conditions following a recent hospitalization. He has a diagnosis of stage IV malignant rectal cancer with metastasis to the liver. He was hospitalized in March due to an obstruction, at which time a rectal stent was placed. He subsequently experienced further distension and was transferred to another hospital where he underwent a diverting loop colostomy. The patient was just discharged from the hospital yesterday and reports o ccasional pain from the colostomy site. He has a scheduled follow-up on June 04 for suture removal. He manages postoperative pain with oxycodone and acetaminophen. His other medical history includes a pulmonary embolism diagnosed on a CT scan during his oncology workup, for which he takes Eliquis. He has hypertension, managed with amlodipine and metoprolol succinate, and was previously on l isinopril. He has a history of anxiety and ADHD, treated with multiple medications including clonazepam, lamotrigine, methylphenidate, and risperidone. A prior chart diagnosis of diabetes was determined to be inaccurate; he was prediabetic, but a hemoglobin A1c in August was 5.1%. Medical History: - Rectal Cancer: Stage IV malignant rect al cancer with metastasis to the liver. - Pulmonary Embolism: History of a blood clot, treated with Eliquis. - Hypertension: Managed on amlodipine an d metoprolol. - Anxiety and ADHD: Managed with multipl e medications. - Prediabetes: Resolved, per lab results from August. Surgical History: - Rectal stent placement for obstruction (March) - Diverting loop colostomy Medications: - Amlodipine for hypertension - Metoprolol succinate 50 mg for hyperte nsion - Eliquis 5 mg twice a day for pulmonary embolism - Clonazepam 1 mg every night for anxiet y/ADHD - Lamotrigine 300 mg for anxiety/ADHD - Methylphenidate 10 mg and 54 mg every morning for anxiety/ADHD - Risperidone 1 mg every night for anxie ty/ADHD - Oxycodone 5 mg for pain, taken 2-3 dru es a day - Acetaminophen for pain - Potassium CLER 20 mg one every morning - Magnesium 400 mg [id number] - Prophylactic antibiotics for recent burns rgery Family History: - Father: History of a heart attack. - Mother: History of leukemia. Diagnostic Results: - Hemoglobin A1c (August): 5.1%, sean l range. - Thyroid function test (March): 2.3 2, normal. Social History: - Tobacco: Quit smoking almost 20 years ago. - Alcohol: Denies use. - Illicit Drugs: Denies use of heroin an d cocaine. - Marijuana: Smokes marijuana to help wi th anxiety. - Support System: Has home nursing care ([facility]) arranged for ostomy care. [facility] Medical History (Updated 05/30/25 @ 12:27 by Josesito Steve MD) Electrolyte abnormality Colostomy care Prediabetes GERD without esophagitis Pulmonary emboli Abdominal distention Port-A-Cath in place H/O sigmoidoscopy Elective surgery Marijuana smoker Chronic back pain Anxiety History of obesity Diabetes mellitus Hypertension Neoplasm of rectosigmoid junction Surgical History History of flexible sigmoidoscopy (~03/20/25) H/O oral surgery No pertinent past surgical history Family History (Updated 05/30/25 @ 11:50 by Page Santoyo MA) Mother No problems noted. Father No problems noted. Other Family history unknown Social History Household Members: Spouse Housing: House Are you a primary director of home care hospice to a significant other at home: No Do you presently have visiting nurse or other home services: No Patient Tobacco Use Status: Never used Tobacco e-Cigarette/Vaping Use: Never Used Substance Use Type: Marijuana Advance Directives Date on File: 03/13/24 service: No Current occupational status: disabled Cognitive needs: No Hearing needs: No Vision needs: Yes (rx glasses) Questionnaire PHQ-9 Over the last 2 weeks, how often have you been bothered by any of the following problems? 1. Little interest or pleasure in doing things: not at all 2. Feeling down, depressed, or hopeless: several days 3. Trouble falling or staying asleep, or sleeping too much: not at all 4. Feeling tired or having little energy: not at all 5. Poor appetite or overeating: not at all 6. Feeling bad about yourself - or that you are a failure or have let yourself or your family down: not at all 7. Trouble concentrating on things, such as reading the newspaper or watching television: not at all 8. Moving or speaking so slowly that other people could have noticed. Or the opposite - being so fidgety or restless that you have been moving around a lot more than usual: not at all 9. Thoughts that you would be better off or of hurting yourself in some way: not at all Total score: 1 Depression Screening Interpretation: Positive Depression Screening Done: Yes 26134 - PHQ-9 Billing: Yes Source: Developed by Drs. Elian Llamas, Mena Perkins, Pérez Morin and colleagues, with an educational iftikhar from [employer]. Thrive Questionnaire Date Thrive assessed: 05/30/25 I am a: Patient What is your living situation today?: I have a steady place to live Within the past 12 months, did the food you bought not last and you didn't have the money to get more?: Never true Within the past 12 months, did you worry whether your food would run out before you got money to buy more?: Never true Do you have trouble paying for medicines?: No Do you have trouble getting transportation to medical appointments?: No Do you have trouble paying your heating and electricity bill?: No Do you have trouble taking care of your child, family member or friend?: No Do you have trouble with day-to-day activities such as bathing, preparing meals, shopping, managing finances, etc.?: No Are you currently unemployed and looking for a job?: No Are you interested in more education?: No THRIVE Score: 0 AUDIT C Alcohol Use Questionnaire (AUDIT-C) 1. How often do you have a drink containing alcohol?: Never 3. How often do you have six or more drinks on one occasion?: Never Total Score: 0 Score Reviewed/Action Taken: Yes DANA-7 AMB Questionnaire DANA-7 Date DANA - 7 assessed: 05/30/25 Feeling nervous, anxious, or on edge: 0 = Not at all Not being able to stop or control worryin = Not at all Worrying too much about different things: 0 = Not at all Trouble relaxin = Not at all Being so restless that it is hard to sit still: 0 = Not at all Becoming easily annoyed or irritable: 0 = Not at all Feeling afraid as if something awful might happen: 0 = Not at all Total DANA-7 score (0-4 normal; 5-9 mild; 10-14 moderate; 15-21 severe): 0 Source: Developed by Drs. Elian Llamas, Mena Perkins, Pérez Morin and colleagues, with an educational iftikhar from [employer]. DANA-7 Assessment Billing DANA-7 Assessment Tool: DANA-7 Assessment 59348 Review of Systems Narrative - General: Denies headaches. - Cardiovascular: Denies chest pain. - Respiratory: Denies shortness of breath. - Gastrointestinal: Reports occasional pain from the colostomy site but denies current abdominal pain from obstruction, nausea, or vomiting. - HEENT: Reports improving dysphagia. - Vision: Denies vision changes. All systems reviewed & are unremarkable except as reviewed in HPI and above Physical exam (Primary Care) Vital Signs: Last Vital Signs Temp 97.3 F 05/30/25 11:39 Pulse 77 05/30/25 11:39 BP 100/66 05/30/25 11:39 Pulse Ox 98 05/30/25 11:39 Oxygen Delivery Method Room Air 05/30/25 11:39 BMI result Body Mass Index 23.5 Tobacco/Smoking Status: Tobacco use Status Tobacco use date assessed 05/30/25 05/30/25 11:41 Patient Tobacco Use Status Never used Tobacco 05/30/25 11:50 e-Cigarette/Vaping Use Never Used 05/30/25 11:41 PHQ-9: PHQ-9 Score PHQ-9: Total score 1 05/30/25 11:50 Depression Screening Interpretation: Positive Thrive Assessment: Date of Thrive Assessment Date Thrive assessed 05/30/25 05/30/25 11:41 Narrative General: +Alert and oriented, Well nourished, No acute distress. Eye: Pupils are equal, round and reactive to light, Intact accommodation, Extraocular movements are intact, Normal conjunctiva, Vision unchanged. HENT: Normocephalic, Atraumatic, Tympanic membranes are clear, Normal hearing, Oral mucosa is moist, No pharyngeal erythema, Ear canals patent. Respiratory: Lungs CTA bilaterally, No wheeze, Respirations are non-labored. Cardiovascular: Regular rate, Regular rhythm, S1 auscultated, S2 auscultated, No murmur, Good pulses equal in all extremities, Normal peripheral perfusion, No edema. Gastrointestinal: Soft, Non-tender, Non-distended, Normal bowel sounds, No organomegaly. Colostomy site clean, no signs of infection. Musculoskeletal: Normal range of motion, Normal strength, No tenderness, No swelling, No deformity, Normal gait. Integumentary: Warm, Dry, [place], Intact. Neurologic: Alert, Oriented, Normal sensory, Normal motor function, No focal defects, Cranial Nerves II-XII are grossly intact, Normal deep tendon reflexes. Psychiatric: Cooperative, Appropriate mood & affect, Normal judgment. Coding Level of Care Code New Pt Level 5 (60402) Diagnoses Neoplasm of rectosigmoid junction D49.0 Colostomy care Z43.3 Colon cancer metastasized to liver C18.9; C78.7 Pulmonary embolism, unspecified chronicity, unspecified pulmonary embolism type, unspecified whether acute cor pulmonale present I26.99 Pulmonary embolism type: unspecified Chronicity: unspecified Acute cor pulmonale presence: unspecified Hypertension, unspecified type I10 Hypertension type: unspecified Anxiety F41.9 Prediabetes R73.03 Electrolyte abnormality E87.8 Additional Codes PHQ-9 - 35440 - PHQ-9 Billing: Yes ([id number]) DANA-7 Assessment Billing - DANA-7 Assessment Tool: DANA-7 Assessment [id number] ([id number]) Assessment & Plan Assessment & Plan (1) Neoplasm of rectosigmoid junction: Comment: - He will follow up with oncology regarding his chemotherapy regimen given chemo is currently on hold - A comprehensive lab panel, including cholesterol, thyroid function, glucose, CBC, and vitamin D, will be ordered to be drawn at his next oncology visit to minimize venipuncture. Code(s): D49.0 - Neoplasm of unspecified behavior of digestive system Category: Medical (2) Colostomy care: Comment: - The patient was recently discharged after surgery for malignant obstruction. - He has occasional pain at the colostomy site, which appears clean on exam. - Plan includes continuing oxycodone and acetaminophen for pain, coordinating with home care for ostomy management, and providing paperwork for supplies as needed. Code(s): Z43.3 - Encounter for attention to colostomy Category: Medical (3) Colon cancer metastasized to liver: Comment: - Diffuse mets with multiple stents, however liver enzymes are stable at this time Code(s): C18.9 - Malignant neoplasm of colon, unspecified; C78.7 - Secondary malignant neoplasm of liver and intrahepatic bile duct Category: Medical (4) Pulmonary emboli: Comment: - His condition is stable. - He will continue Eliquis 5 mg twice a day, with the understanding that long- term anticoagulation is necessary due to the prothrombotic state of his malignancy. Code(s): I26.99 - Other pulmonary embolism without acute cor pulmonale Category: Medical Qualifiers: Pulmonary embolism type: unspecified Chronicity: unspecified Acute cor pulmonale presence: unspecified Qualified Code(s): I26.99 - Other pulmonary embolism without acute cor pulmonale (5) Hypertension: Comment: - His blood pressure is managed on his current regimen. - He will continue taking amlodipine and metoprolol succinate 50 mg. Code(s): I10 - Essential (primary) hypertension Category: Medical Qualifiers: Hypertension type: unspecified Qualified Code(s): I10 - Essential (primary) hypertension (6) Anxiety: Comment: Anxiety and ADHD - The patient is on a stable, multi-drug regimen for his psychiatric conditions. - He is advised to continue his current medications and follow up with his mental health provider. Code(s): F41.9 - Anxiety disorder, unspecified Category: Medical (7) Prediabetes: Comment: - Previously elevated A1c with most recent at 5.1 - Repeat at next onc visit Code(s): R73.03 - Prediabetes Category: Medical (8) Electrolyte abnormality: Comment: - The patient was taking potassium and magnesium supplements, which were not on his hospital discharge list. - He was advised he can safely resume taking these supplements, as his kidney function is good and can excrete any excess Code(s): E87.8 - Other disorders of electrolyte and fluid balance, not elsewhere classified Category: Medical Plan: Health Maintenance: - An incorrect chart diagnosis of diabetes was identified and corrected. - Lab work will be ordered to check cholesterol, thyroid function, CBC, blood sugar, and vitamin D levels. - Patient will continue follow-up with his oncology and mental health providers. - Follow up with this office is on an as-needed basis. Patient was informed and verbally consented to the use of an ambient scribe for clinic note documentation during this visit. Plan I reviewed the patient's history as a new patient to the practice, focusing on his recent hospitalization and diverting loop colostomy for stage IV rectal cancer. We discussed management of his postoperative pain and the plan for ostomy care, including the role of home nursing and our office's support in coordinating supplies and paperwork. I explained the necessity of continuing his anticoagulant, Eliquis, long-term due to the increased clotting risk associated with his malignancy. We also discussed correcting his medical record to remove an inaccurate diagnosis of diabetes, reassuring him that his lab values do not support it. I advised him to resume his potassium and magnesium supplements and informed him that I will order a comprehensive set of labs to be drawn at his next oncology appointment to minimize his discomfort. I advised him to follow up in this clinic as needed. Orders: Orders Comprehensive Met. Panel Today Z00.00 - Encounter for general adult medical examination without abnormal findings Vitamin D 25-OH Total Today Z00.00 - Encounter for general adult medical examination without abnormal findings Microalbumin, Random (w Creat) Today Z00.00 - Encounter for general adult medical examination without abnormal findings Hemoglobin A1c Today Z00.00 - Encounter for general adult medical examination without abnormal findings Complete Blood Count Auto Diff Today Z00.00 - Encounter for general adult medical examination without abnormal findings Lipid Panel Today Z00.00 - Encounter for general adult medical examination without abnormal findings Medications: Discontinued hydroxyzine HCl Discontinued Reason: Doctor's Order 25 mg PO TID PRN 30 tabs 0RF Itching Patient Instructions: - You were just released from the hospital yesterday. - Continue taking your pain medications, Oxycodone and Tylenol, as needed. - It is safe to resume taking your potassium and magnesium pills. - Continue all other regularly prescribed medications for blood pressure, blood clots, anxiety, and ADHD. - A nurse will be coming to your home to help you with your new colostomy bag. - Contact our office if you have any issues with the home care agency or getting your ostomy supplies. - Your diabetes diagnosis was an error and has been removed from your record. - We will order blood tests to be done at your next cancer doctor's appointment so you don't need to be poked again. - Follow up with your cancer doctor to discuss your next chemotherapy treatment. - You can schedule appointments with our office whenever you feel you need one.
[2025-05-30 11:39] VITALS: BP 100/66; PULSE 77; TEMP 36.3; O2SAT 98; BMI 23.5
--- OUTSIDE RECORDS SUMMARY | 2025-05-30 14:08 | XMS_ITS | Clinical Summary ---
Author Organization [facility] Address [address] [place] [address] Care Team Providers Care [employer] Name Role Phone Abel Case MD Primary Care Provider [phone] Allergies No known active allergies Medications acetaminophen (TYLENOL) 325 MG tabletIndication s:Large bowel obstruction (HCC) Take 2 tablets (650 mg total) by mouth 4 times daily (every 6 hours) as needed for mild pain. 240 tablet 05/29/2025 06/28/20 25 Active amoxicillin-clav ulanate (AUGMENTIN) 875-125 MG per tabletIndication s:Large bowel obstruction (HCC) Take 1 tablet by mouth every 12 (twelve) hours around the clock. 28 tablet 05/29/2025 06/12/20 25 Active apixaban (ELIQUIS) 5 MG tabletIndication s:Large bowel obstruction (HCC) Take 1 tablet (5 mg total) by mouth every 12 (twelve) hours around the clock. 05/29/2025 Active clonazePAM (KlonoPIN) 1 MG tabletIndication s:Large bowel obstruction (HCC) Take 1 tablet (1 mg total) by mouth nightly. 05/29/2025 06/28/20 25 Active lamoTRIgine (LaMICtal) 150 MG tabletIndication s:Large bowel obstruction (HCC) Take 2 tablets (300 mg total) by mouth daily. 05/29/2025 06/28/20 25 Active methocarbamol (ROBAXIN) 500 MG tabletIndication s:Large bowel obstruction (HCC) Take 1 tablet (500 mg total) by mouth 4 (four) times a day as needed for muscle spasms. 12 tablet 05/29/2025 06/28/20 25 Active methylphenidate (CONCERTA) 18 MG CR tabletIndication s:Large bowel obstruction (HCC) Take 1 tablet (18 mg total) by mouth daily. Max Daily Amount: 18 mg 05/29/2025 06/04/20 Active metoPROLOL SUCCINATE (TOPROL-XL) 50 MG 24 hr tabletIndication s:Large bowel obstruction (HCC) Take 1 tablet (50 mg total) by mouth daily. 05/29/2025 06/28/20 Active risperiDONE (RisperDAL) 1 MG tabletIndication s:Large bowel obstruction (HCC) Take 1 tablet (1 mg total) by mouth nightly. 05/29/2025 06/28/20 Active oxyCODONE (ROXICODONE) 5 MG immediate release tabletIndication s:Large bowel obstruction (HCC) Take 1 tablet (5 mg total) by mouth every 4 (four) hours as needed for severe pain. Max Daily Amount: 30 mg 10 tablet 05/29/2025 Active amLODIPine (NORVASC) 5 MG tabletIndication s:Large bowel obstruction (HCC) Take 1 tablet (5 mg total) by mouth nightly. 05/29/2025 06/28/20 Active Active Problems Problem Noted Date Diagnosed Date Severe malnutrition:Severe f at depletion(bicep/tricep fat pads) and severe muscle depletion (quadriceps and gastrocnemius) 05/21/2025 ADHD 05/18/2025 Assessment & Plan (05/18/2025 7:54 PM EDT): Holding home methylphenidate 10 mg; as currently patient n.p.o. Assessment & Plan (05/18/2025 12:11 AM EDT): Will continue home dose methylphenidate 10, not available in the hospital I will order 18 HTN (hypertension) 05/18/2025 Assessment & Plan (05/18/2025 7:54 PM EDT): Currently normotensive Holding home metoprolol 50 mg and amlodipine 5 mg Assessment & Plan (05/18/2025 12:11 AM EDT): Continue amlodipine 5 History of pulmonary embolus (PE) 05/18/2025 Assessment & Plan (05/18/2025 7:54 PM EDT): Holding home Eliquis Ordered IV heparin, given INR above 2 not started at this time Assessment & Plan (05/18/2025 12:11 AM EDT): Will continue apixaban GERD (gastroesophageal reflux disease) Assessment & Plan (05/18/2025 7:54 PM EDT): Continue IV Protonix 40 mg daily Assessment & Plan (05/18/2025 12:11 AM EDT): Will continue pantoprazole, Home regimen omeprazole 20 Rectal cancer metastasized to liver 05/18/2025 Assessment & Plan (05/18/2025 7:54 PM EDT): General Surgery consulted; recommendations were appreciated NG tube in place IVF with LR at 100 mL an hour As needed IV analgesics and antiemetics Plan for diverting ostomy tomorrow 05/19 Assessment & Plan (05/18/2025 12:11 AM EDT): CT at [facility] significant for small and large bowel distention and concern for obstructive rectal stent and hepatic mets and gallbladder hydrops Keep the patient n.p.o. Start patient on IV fluid GI consulted by the ED follow recs Anxiety 05/18/2025 Assessment & Plan (05/18/2025 7:54 PM EDT): Holding home lamotrigine 300 mg, risperidone 1 mg, clonazepam 1 mg as patient currently n.p.o., Large bowel obstruction 05/17/2025 Assessment & Plan (05/18/2025 7:54 PM EDT): General Surgery consulted; recommendations were appreciated NG tube in place IVF with LR at 100 mL an hour As needed IV analgesics and antiemetics Plan for diverting ostomy tomorrow 05/19 Assessment & Plan (05/18/2025 12:11 AM EDT): CT at [facility] significant for small and large bowel distention and concern for obstructive rectal stent and hepatic mets and gallbladder hydrops Keep the patient n.p.o. Start patient on IV fluid GI consulted by the ED follow recs Encounters Date Type Department Care Team Description 05/23/2025 Travel 05/19/2025 8:46 AM EDT Anesthesia Event Day [facility] Perioperative Surgical Services [address] [place] [phone] Megan Landers MD Scanlon, Daniel Joseph, MD 05/19/2025 8:30 AM EDT - 05/19/2025 10:36 AM EDT Surgery Day [facility] [address] [place] [phone] Radha Gay MD LAPAROSCOPY CREATION OF COLOSTOMY 05/17/2025 10:15 PM EDT Ancillary Procedure [facility] Radiology [address] [place] [phone] Provider, File Room 05/17/2025 10:10 PM EDT Ancillary Procedure [facility] Radiology [address] [place] [phone] Provider, File Room 05/17/2025 9:59 PM EDT - 05/29/2025 1:36 PM EST Hospital Encounter [facility] [address] [place] [phone] Fabien Sullivan MD Marseille Mathieu, MD Asher Hernandez Moaz, MD Randhawa, Jasmay S, MD Bassett, Radha Velazquez MD Large bowel obstruction (HCC) (Primary Dx) Discharge Disposition: Home with Health Care Services from Last 3 Months Social History Tobacco Use Types Packs/Day Years [...] any time in the past 12 m [facility], were you homeless or living in a snf (including now)? No 05/18/2025 [facility] Utilities Answer Date Recorded In the [...] not to disclose 2024 10:15 PM EDT Last Filed Vital Signs Vital Sign Reading [...] Mass Index 22.9 05/18/2025 7:00 AM EDT Plan of Treatment Health Maintenance Due Date Last Done Comments Hepatitis C Virus Screening 1964 HIV Screening 1977 DTaP/Tdap/Td Vaccines (1 - Tdap) 1983 Pneumococcal Vaccines 50+ (1 of 2 - PCV) 1983 Zoster (Shingles) Vaccine (1 of 2) 1983 Colonoscopy 2009 RSV Vaccine 50 years and older and Patients (1 - Risk 50-74 years 1-dose series) 2014 COVID-19 Vaccine (3 - Pfizer risk series) 11/21/2020 10/24/2020, 10/03/2020 Influenza Vaccine 02/23/2025 Hepatitis B Vaccines Aged Out No long er eligible based on patient's age to complete this topic Procedures Procedure Name Priority Date/Time Associated Diagnosis Comments POCT GLUCOSE, FINGERSTICK (CHARGE) Routine 05/29/2025 11:55 AM EST HEPARIN ASSAY (ANTI-XA) Routine 05/29/2025 5:[address] ABDOMEN+PELVIS W/CONTRAST STAT 05/28/2025 10:53 AM EST COMPLETE BLOOD COUNT, WITHOUT DIFFERENTIAL Routine 05/28/2025 4:40 AM EST HEPARIN ASSAY (ANTI-XA) Routine 05/28/2025 4:40 AM EST HEPARIN ASSAY [...] VANCOMYCIN LEVEL-RANDOM Timed 05/26/2025 9:00 AM EDT PHOSPHORUS Routine 05/25/2025 6:30 AM EDT MAGNESIUM Routine 05/25/2025 6:30 AM EDT BASIC METABOLIC PANEL Routine 05/25/2025 6:30 AM EDT COMPLETE BLOOD COUNT, WITHOUT DIFFERENTIAL Routine 05/25/2025 6:30 AM EDT COMPLETE BLOOD COUNT, WITHOUT DIFFERENTIAL Routine 05/25/2025 6:00 AM EDT BODY FLUID CULTURE (AEROBIC, ANAEROBIC AND GRAM STAIN) Routine 05/24/2025 4:41 PM EDT COMPLETE BLOOD COUNT, WITH DIFFERENTIAL Routine 05/24/2025 1:[address] ABDOMEN+PELVIS W/CONTRAST STAT 05/24/2025 12:33 PM EDT PHOSPHORUS Routine 05/23/2025 5:15 AM EDT MAGNESIUM Routine 05/23/2025 5:15 AM EDT BASIC METABOLIC PANEL Routine 05/23/2025 5:15 AM EDT HEPARIN ASSAY (ANTI-XA) Routine 05/23/2025 5:15 AM EDT ECG 12-LEAD Routine 05/22/2025 5:10 PM EDT ECG 12-LEAD STAT 05/22/2025 5:08 PM EDT BASIC METABOLIC PANEL Routine 05/22/2025 3:35 PM EDT ALBUMIN Routine 05/22/2025 7:00 AM EDT PHOSPHORUS Routine 05/22/2025 7:00 AM EDT MAGNESIUM Routine 05/22/2025 7:00 AM EDT BASIC METABOLIC PANEL Routine 05/22/2025 7:00 AM EDT PHOSPHORUS Routine 05/22/2025 3:52 AM EDT MAGNESIUM Routine 05/22/2025 3:52 AM EDT BASIC METABOLIC PANEL Routine 05/22/2025 3:52 AM EDT HEPARIN ASSAY (ANTI-XA) Routine 05/22/2025 3:52 AM EDT XR CHEST [...] ASSAY (ANTI-XA) Routine 05/20/2025 5:44 PM EDT HEPARIN ASSAY (ANTI-XA) Routine 05/20/2025 10:48 AM EDT PARTIAL THROMBOPLASTIN TIME (PTT) Routine 05/20/2025 10:48 AM EDT PROTIME-INR Routine 05/20/2025 10:48 AM EDT PHOSPHORUS Routine 05/20/2025 6:10 AM EDT MAGNESIUM Routine 05/20/2025 6:10 AM EDT COMPLETE BLOOD COUNT, WITHOUT DIFFERENTIAL Routine 05/20/2025 6:10 AM EDT BASIC METABOLIC PANEL Routine 05/20/2025 6:10 AM EDT PHOSPHORUS Routine 05/19/2025 4:21 PM EDT MAGNESIUM Routine 05/19/2025 4:21 PM EDT BASIC METABOLIC PANEL Routine 05/19/2025 4:21 PM EDT HEPARIN ASSAY (ANTI-XA) Routine 05/19/2025 3:42 PM EDT POTASSIUM Routine 05/19/2025 11:13 AM EDT POCT GLUCOSE, FINGERSTICK (CHARGE) Routine 05/19/2025 11:04 AM EDT ANES INTUBATION Routine 05/19/2025 9:10 AM EDT CREATION COLOSTOMY 05/19/2025 8: 30 AM EDT Large bowel obstruction (HCC) HEPARIN ASSAY (ANTI-XA) Routine 05/19/2025 5:37 AM EDT PHOSPHORUS Routine 05/19/2025 5:37 AM EDT MAGNESIUM Routine 05/19/2025 5:37 AM EDT COMPLETE BLOOD COUNT, WITHOUT DIFFERENTIAL Routine 05/19/2025 5:37 AM EDT BASIC METABOLIC PANEL Routine 05/19/2025 5:37 AM EDT HEPARIN ASSAY (ANTI-XA) Routine 05/19/2025 12:02 AM EDT HEPARIN ASSAY (ANTI-XA) Routine 05/18/2025 5:45 PM EDT PREPARE RBC'S Routine 05/18/2025 3:24 PM EDT XR ABDOMEN 1 VIEW-PORTABLE Routine 05/18/2025 10:00 AM EDT HEPARIN ASSAY (ANTI-XA) Routine 05/18/2025 9:04 AM EDT PARTIAL THROMBOPLASTIN TIME (PTT) Routine 05/18/2025 9:04 AM EDT PROTIME-INR Routine 05/18/2025 9:04 AM EDT COMPLETE BLOOD COUNT, WITHOUT DIFFERENTIAL Routine 05/18/2025 9:04 AM EDT PROTIME-INR STAT 05/17/2025 10:45 PM EDT HEPATIC FUNCTION PANEL STAT 10:45 PM EDT PHOSPHORUS STAT 05/17/2025 10:45 PM EDT MAGNESIUM STAT 05/17/2025 10:45 PM EDT BASIC METABOLIC PANEL STAT 05/17/2025 10:45 PM EDT COMPLETE BLOOD COUNT, WITH DIFFERENTIAL STAT 05/17/2025 10:45 PM EDT TYPE AND SCREEN STAT 05/17/2025 10:[address] ABDOMEN ARCHIVE FOR REFERENCE ONLY Routine 05/17/2025 10:[address] ABDOMEN ARCHIVE FOR REFERENCE ONLY Routine 05/17/2025 10:05 PM EDT from Last 3 Months Results * (ABNORMAL) POCT Glucose, Fingerstick (05/29/2025 11:55 AM EST) Only the most recent of2 resultswithin the time period is included. POC Glucose 131(H) 65 - 99 mg/dL 05/29/2025 11:57 AM EST Blood specimen / Unknown 05/29/2025 11:55 AM EST 05/29/2025 11:57 AM EST us Fabien Sullivan MD POINT OF CARE TEST ORDERABLES Fi nal Result HOSPITAL LAB See Below * Heparin Assay (Anti-Xa) (05/29/2025 5:31 AM EST) Only the most recent of16 resultswithin the time period is included. Anti Xa 0.15 IU/mL 05/29/2025 7:53 AM EST [facility] Comment: (NOTE) Heparin Thromboembolic/Standard/Full Dose Protocol: [...] IV HEPARIN, UNFRACTIONATED 05/29/2025 5:02 AM EST [facility] Blood Blood specimen / Unknown 05/29/2025 5:31 AM EST 05/29/2025 7:13 AM EST us Radha Gay MD LAB BLOOD ORDERABLES Final Result Performing Organization Address City/State/[facility] [place] [address], [place] [address] * CT Abdomen+pelvis w/contrast (05/28/2025 10:53 AM EST) Only the most recent of2 resultswithin the time period is included. Anatomical Region Laterality Modality Abdomen, Pelvis Computed [...] segment. 6. Prostatomegaly. Fleischner guidelines were followed. Radha Gay MD IMG CT ORDERABLES Final Re sult * (ABNORMAL) Complete Blood Count WITHOUT Differential - Early AM (05/28/2025 4:40 AM EST) Only the most recent of9 resultswithin the time period is included. White Blood Cell Count 3.7(L) 4.0 - 11.0 Thou/uL 05/28/2025 5:18 AM [facility] Platelet Count 340 150 - 450 Thou/uL 05/28/2025 5:18 AM [facility] Hemoglobin 9.6(L) 13.0 - 17.7 g/dL 05/28/2025 5:18 AM [facility] Hematocrit 30.4(L) 39.0 - 54.0 % 05/28/2025 5:18 AM [facility] Red Blood Cell Count 3.26(L) 4.50 - 6.20 Mil/uL 05/28/2025 5:18 AM [facility] MCV 93 80 - 100 fL 05/28/2025 5:18 AM [facility] MCH 29.4 27.0 - 31.0 pg 05/28/2025 5:18 AM [facility] MCHC 31.6 30.0 - 36.0 g/dL 05/28/2025 5:18 AM [facility] RDW 15.7(H) 11.5 - 14.5 % 05/28/2025 5:18 AM [facility] MPV 8.7 7.5 - 12.5 fL 05/28/2025 5:18 AM [facility] Blood Blood specimen / Unknown 05/28/2025 4:40 AM EST 05/28/2025 5:05 AM EST Brandee Orellana MD LAB BLOOD ORDERABLES Final Result Performing Organization Address City/[facility]/[place] [address], [place] [address] * Partial Thromboplastin Time (PTT) (05/26/2025 11:23 AM EDT) Only the most recent of3 resultswithin the time period is included. Anticoagulant IV HEPARIN, UNFRACTIONATED 05/26/2025 11:23 AM EDT [facility] Partial Thromboplastin Time (PTT) 35 25 - 36 seconds 05/26/2025 12:12 PM EDT [facility] Blood Blood specimen / Unknown 05/26/2025 11:23 AM EDT 05/26/2025 11:49 AM EDT Roselia Walters MD LAB BLOOD ORDERABLES Final Result Performing Organization Address City/[facility]/[place] [address], [place] [address] * (ABNORMAL) Protime-INR (05/26/2025 11:23 AM EDT) Only the most recent of4 resultswithin the time period is included. [facility] Anticoagulant IV HEPARIN, UNFRACTIONATED 05/26/2025 11:23 AM EDT [facility] Prothrombin Time (PT) 14.0(H) 10.0 - 13.5 seconds 05/26/2025 12:12 PM EDT [facility] INR 1.2 05/26/2025 12:12 PM EDT [facility] Comment:INR Therapeutic Rang es: Standard dose anticoagulant 2.0 to 3.0, High dose anticoagulant 2.5-3.5. Blood Blood specimen / Unknown 05/26/2025 11:23 AM EDT 05/26/2025 11:49 AM EDT Roselia Walters MD LAB BLOOD ORDERABLES Final Result Performing Organization Address City/[facility]/[place] [address], [place] [address] * Vancomycin Level, Random (05/26/2025 9:00 AM EDT) [facility] Vancomycin, Random 8 mg/L 05/26/2025 10:25 AM EDT [facility] Comment:No reference range e stablished for random levels. Time of Last Dose Information not given 05/26/2025 8:24 AM EDT [facility] Blood Blood specimen / Unknown 05/26/2025 9:00 AM EDT 05/26/2025 9:25 AM EDT Radha Gay MD LAB BLOOD [place] [address], [place] [address] * Phosphorus (05/25/2025 6:30 AM EDT) Only the most recent of10 resultswithin the time period is included. Phosphorus 3.0 2.7 - 4.5 mg/dL 05/25/2025 7:45 AM EDT [facility] Blood Blood specimen / Unknown 05/25/2025 6:30 AM EDT 05/25/2025 7:04 AM EDT Radha Gay MD LAB BLOOD ORDERABLES Final Result Performing Organization Address City/[facility]/[place] [address], [place] [address] * Magnesium (05/25/2025 6:30 AM EDT) Only the most recent of10 resultswithin the time period is included. Pathologist [facility] Magnesium 1.8 1.6 - 2.7 mg/dL 05/25/2025 7:45 AM T [facility] Blood Blood specimen / Unknown 05/25/2025 6:30 AM EDT 05/25/2025 7:04 AM EDT Radha Gay MD LAB BLOOD ORDERABLES Final Result Performing Organization Address City/[facility] [place] [address], [place] [address] * (ABNORMAL) Basic Metabolic Panel (05/25/2025 6:30 AM EDT) Only the most recent of11 resultswithin the time period is included. Glucose 84 65 - 99 mg/dL 05/25/2025 7:45 AM EDT [facility] Comment:Fasting: <100 mg/dL, Non-Fasting: <200 mg/dL (ADA 2005) Blood Urea Nitrogen (BUN) 4(L) 8 - 21 mg/dL 05/25/2025 7:45 AM [facility] Creatinine 0.44(L) 0.50 - 1.30 mg/dL 05/25[facility]25 [facility] >90 >59 05/25/2025 7:45 AM T [facility] Comment:CKD-EPI (2020) in mL /min/1.73 sq meters. Sodium 135(L) 136 - 145 mmol/L 05/25/2025 7:45 AM EDT [facility] Potassium 3.5 3.4 - 5.3 mmol/L 05/25/2025 7:45 AM [facility] Chloride 100 98 - 107 mmol/L 05/25/2025 7:45 AM EDT [facility] CO2 22 22 - 33 mmol/L 05/25/2025 7:45 AM [facility] Anion Gap 13 7 - 17 05/25/2025 7:45 AM EDT [facility] Calcium 8.3(L) 8.7 - 10.5 mg/dL 05/25/2025 7:45 AM [facility] BUN/Creatinine Ratio 9(L) 10.0 - 25.0 Ratio 05/25/2025 7:45 AM [facility] Blood Blood specimen / Unknown 05/25/2025 6:30 AM EDT 05/25/2025 7:04 AM EDT us Radha Gay MD LAB BLOOD [place]AB[place] [address], [place] [address] * (ABNORMAL) Complete Blood Count, with Differential (05/24/2025 1:30 PM EDT) Only the most recent of2 resultswithin the time period is included. White Blood Cell Count 5.0 4.0 - 11.0 Thou/uL 05/24/2025 2:05 PM [facility] Platelet Count 255 150 - 450 Thou/uL 05/24/2025 2:[facility] Hemoglobin 9.8(L) 13.0 - 17.7 g/dL 05/24/2025 2:05 PM [facility] Hematocrit 30.5(L) 39.0 - 54.0 % 05/24/2025 2:05 PM [facility] Red Blood Cell Count 3.36(L) 4.50 - 6.20 Mil/uL 05/24/2025 2:05 PM [facility] MCV 91 80 - 100 fL 05/24/2025 2:05 PM [facility] MCH 29.2 27.0 - 31.0 pg 05/24/2025 2:05 PM [facility] MCHC 32.1 30.0 - 36.0 g/dL 05/24/2025 2:05 PM [facility] RDW 15.5(H) 11.5 - 14.5 % 05/24/2025 2:05 PM [facility] MPV 8.7 7.5 - 12.5 fL 05/24/2025 2:05 PM [facility] Neutrophils Auto 61.8 % 05/24/20 2:38 PM [facility] Comment:Results verified by smear review. Immature Granulocytes 0.4 % 05/24/2025 2:38 PM [facility] Lymphocytes Auto 22.1 % 05/24/20 2:38 PM [facility] Monocytes Auto 15.5 % 05/24/2025 2:38 PM [facility] Eosinophils Auto 0.0 % 05/24/20 2:38 PM [facility] Basophils Auto 0.2 % 05/24/2025 2:38 PM [facility] Abs Neutrophils Auto 3.08 2.00 - 7.50 Thou/uL 05/24/2025 2:38 PM [facility] Abs Immature Granulocytes 0.02 0.00 - 0.10 Thou/uL 05/24/2025 2:38 PM [facility] Abs Lymphocytes Auto 1.10(L) 1.50 - 4.50 Thou/uL 05/24/2025 2:38 PM [facility] Abs Monocytes Auto 0.77 0.20 - 1.50 Thou/uL 05/24/2025 2:38 PM [facility] Abs Eosinophils Auto 0.00 0.00 - 0.70 Thou/uL 05/24/2025 2:38 PM [facility] Abs Basophils Auto 0.01 0.00 - 0.20 Thou/uL 05/24/2025 2:38 PM [facility] Blood Blood specimen / Unknown 05/24/2025 1:30 PM EDT 05/24/2025 1:56 PM EDT Radha Gay MD LAB BLOOD ORDERABLES Final Result [facility] [address] [place] [address], [facility] [address] [place] [address] * ECG 12 lead (05/22/2025 5:10 PM EDT) Only the most recent of2 resultswithin the time period is included. Ventricular rate 86 BPM EKG [facility] Atrial rate 86 BPM EKG [facility] P-R interval 158 ms EKG [facility] QRS duration 90 ms EKG [facility] Q-T interval 392 ms EKG [facility] QTC calculation (Bazett) 469 ms EKG [facility] P axis 37 degrees EKG [facility] R axis -46 degrees EKG [facility] T axis 30 degrees EKG [facility] 05/22/2025 5:10 PM EDT Narrative EKG [facility] - 05/23/2025 9:25 PM EDT Normal [...] Fabien Sullivan MD ECG ORDERABLES Final Result EKG [facility] * (ABNORMAL) Albumin (05/22/2025 7:00 AM EDT) Albumin 3.1(L) 3.4 - 4.8 g/dL 05/22/2025 7:38 AM EDT [facility] Blood Blood specimen / Unknown 05/22/2025 7:00 AM EDT 05/22/2025 7:09 AM EDT us Keanu Greer MD LAB BLOOD ORDERABLES Final Resul t Performing Organization Address City/[facility] [place] [address], [address] [address] * XR Chest 1 view (05/21/2025 8:54 PM EDT) Anatomical Region Laterality Modality Chest Computed Radiogr aphy 05/21/2025 8:26 PM EDT Impressions 05/21/2025 9:40 PM EDT Mild bronchial wall thickening. Streaky left mid to lower lung opacities may reflect atelectasis and/or infectious/inflammatory process. Interpreted by: Pb Cummins MD Cup Trimming Machine Operator I personally reviewed the images and the [...] infectious/inflammatory process. Interpreted by: Pb Cummins MD Cup Trimming Machine Operator I personally reviewed the images and the resident's preliminary report and AGREE with the report as it is now presented ([id number]). Radha Gay MD IMG DIAGNOSTIC IMAGING ORD ERABLES Final Result * Blood Culture (05/21/2025 8:36 PM EDT) Only the most recent of2 resultswithin the time period is included. Culture Sterile after 5 days 05/27/2025 7:41 AM EST [facility] Blood (Blood, Peripheral Venipuncture) 05/21/2025 8:36 PM EDT 05/21/2025 8:54 PM EDT Comment:Blood Radha Gay MD LAB BLOOD ORDERABLES Final Result [facility] [address] [place] [address], [place] * (ABNORMAL) Urinalysis with Reflex to Microscopic (05/21/2025 8:32 PM EDT) Color Yellow 05/21/2025 8:55 PM EDT [facility] Clarity Cloudy 05/21/2025 8:55 PM EDT [facility] Specific [place] 1.020 1.005 - 1.030 05/21/2025 8:55 PM EDT [facility] pH 6.0 5.0 - 8.0 05/21/2025 8:55 PM EDT [facility] Leukocyte Esterase Negative Negative 05/21/2025 8:55 PM EDT [facility] Nitrite Negative Negative 05/21/2025 8:55 PM EDT [facility] Protein 30(A) NEG^Negative mg/dL 05/21/2025 8:55 PM EDT [facility] Glucose Negative Negative mg/dL 05/21/2025 8:55 PM EDT [facility] Ketones 80(A) NEG^Negative mg/dL 05/21/2025 8:55 PM EDT [facility] Blood Negative Negative 05/21/2025 8:55 PM EDT [facility] Bilirubin Negative Negative 05/21/2025 8:55 PM EDT [facility] RBC 2 0 - 4 per hpf 05/21/2025 8:55 PM EDT [facility] WBC 1 0 - 4 per hpf 05/21/2025 8:55 PM EDT [facility] Epithelial Cells 1 per hpf 05/21/2025 8:55 PM EDT [facility] Casts 1 0 - 4 per lpf 05/21/2025 8:55 PM EDT [facility] Comment:Casts are hyaline un less otherwise noted. Urine Urine specimen / Unknown 05/21/2025 8:32 PM EDT 05/21/2025 8:39 PM EDT us Radha Gay MD URINE ORDERABLES Final Res ult Performing Organization Address City/[facility]/[place] [address], [place] [address] * (ABNORMAL) POTASSIUM - Post op (05/19/2025 11:13 AM EDT) Potassium 3.1(L) 3.4 - 5.3 mmol/L 05/19/2025 11:46 AM EDT [facility] Blood Blood specimen / Unknown 05/19/2025 11:13 AM EDT 05/19/2025 11:25 AM EDT Zena Lopez CRNA LAB BLOOD ORDERABLES Final R esult Performing Organization Address City/[facility]/[place] [address], [place] [address] * ANES INTUBATION (05/19/2025 9:10 AM EDT) Zena Zavala CRNA - 05/19/2025 9:10 AM EDT Zena Lopez CRNA 05/19/2025 9:12 AM Anesthesia Procedure Note - Patient Name: Nemesio Baldwin : 1965 Patient location: OR Procedure indications: airway protection Procedure diagnosis: Anesthesia Performed by: Resident/FILAMENT MAKER MD Zena Jernigan CRNA Chart Verification Airway: airway not difficult Preanesthetic Checklist . Patient's pre-procedure mental status: awake Airway not difficult - NPO status: > 8 hours Procedure Details Intubation route: oral Intubation method: direct laryngoscopy Mac 3 Number of attempts: 1 Patient status for intubation: paralyzed and sedated Patient position: supine Preoxygenation: BVM - cuffed, cuff inflated and minimal leak test Cord visualization: Grade I Placement confirmation method: chest rise and ETCO2 monitor Breath sounds: equal bilaterally ETT to lip: 22 cm Dentition: same as baseline Additional comments: RSI, easy intubation , no complications Megan Landers MD [place] ANESTHESIA Final Result * Prepare RBC's:Prepare in: Units; Number of Units: 1; Transfusion Indications: Hemoglobin less than 7 gm/dl or HCT less than 21% (05/18/2025 3:24 PM EDT) Units Ordered 1 05/18/2025 3:24 PM EDT [facility] 05/18/2025 3:24 PM EDT 05/18/2025 3:34 PM EDT Felipe Limon MD BLOOD BANK PRODUCT [place] [address], [place] [address] * XR Abdomen 1 view-Portable (05/18/2025 10:00 [...] DIAGNOSTIC IMAGING ORDER DEANDRA Final Result * Hepatic Function Panel (05/17/2025 10:45 PM EDT) Alkaline Phosphatase 85 45 - 128 U/L 05/17/2025 11:25 PM EDT [facility] Aspartate Aminotrans (AST) 21 10 - 55 U/L 05/17/2025 11:25 PM EDT [facility] Alanine Aminotrans (ALT) 10 10 - 55 U/L 05/17/2025 11:25 PM EDT [facility] Bilirubin, Total 1.0 0.2 - 1.0 mg/dL 05/17/2025 11:25 PM EDT [facility] Protein, Total 6.9 6.3 - 8.3 g/dL 05/17/2025 11:25 PM EDT [facility] Albumin 3.8 3.4 - 4.8 g/dL 05/17/2025 11:25 PM EDT [facility] Bilirubin, Direct 0.2 0 - 0.2 mg/dL 05/17/2025 11:25 PM EDT [facility] Globulin 3.1 1.5 - 3.9 g/dL 05/17/2025 11:25 PM EDT [facility] Albumin/Globulin Ratio 1.2 1.0 - 3.0 Ratio 05/17/2025 11:25 PM EDT [facility] Blood Blood specimen / Unknown 05/17/2025 10:45 PM EDT 05/17/2025 11:03 PM EDT us Fabien Sullivan MD LAB BLOOD [place] [address], [place] [address] * Type and Screen (05/17/2025 10:43 PM EDT) ABO/Rh O POSITIVE 05/17/2025 11:59 PM EDT [facility] Antibody Screen NEGATIVE 11:59 PM EDT [facility] Specimen Expiration 05/20/2025 05/17/2025 11:59 PM EDT [facility] Unit Number [id number] 05/18/2025 3:33 PM EDT [facility] Blood Component Type LEUKOREDUCED RED CELLS 05/18/2025 3:33 PM EDT [facility] Unit Division 00 05/18/2025 3:33 PM EDT [facility] Unit Status REL FROM ALLOC 12:18 AM EDT [facility] Transfusion Status OK TO TRANSFUSE 05/18/2025 3:33 PM EDT [facility] Crossmatch Result COMPATIBLE 05/18/2025 3:33 PM EDT [facility] Blood Blood specimen / Unknown 05/17/2025 10:43 PM EDT 05/17/2025 11:14 PM EDT Comment:Blood us Fabien Sullivan MD BLOOD BANK TEST ORDERABLES Final Result [facility]OSPITAL [facility] See Below [facility] [address] [place] [address] * CT Abdomen Archive for Reference Only (05/17/2025 10:06 PM EDT) Only the most recent of2 resultswithin the time period is included. Narrative YOEL - 05/17/2025 10:06 PM EDT This study has been auto finalized and does not contain a result. us File Room Provider IMG DIGITIZE FILMS Final Resu lt YOEL [phone] from Last [address] [facility] MEDICARE PART A Advance Directives * Full Code (Latest Code Status on File) Date Activated Date Inactivated Comments 05/19/2025 11:25 AM * Full Code Date Activated Date Inactivated Comments 05/17/2025 11:44 PM 05/19/2025 11:25 AM Question Answer Comments Decision Thoroughly Discussed with: Patient Care Teams [employer] Relationship Specialty Start Date End Date Abel Case MD [address] [place] [address] PCP - General Medical Oncology 05/18/25
--- OUTSIDE RECORDS SUMMARY | 2025-05-30 14:08 | XMS_ITS ---
Author Name [facility] Organization Unknown Results Test Name/Text Value Interpretation Date Range Source POC Glucose 131.0 mg/dL Above high normal 05/29/2025 65 - 99 [facility] LMWH PPP Tram Driver-aCnc 0.15 IU/mL 05/29/2025 [facility] Anticoagulant IV HEPARIN, UNFRACTIONATED 05/29/2025 [facility] LMWH PPP Tram Driver-aCnc 0.32 IU/mL 05/28/2025 [facility] Anticoagulant IV HEPARIN, UNFRACTIONATED 05/28/2025 H[facility] RBC num Bld Auto 3.26 Mil/uL Below low normal 05/28/2025 4.5 - 6.2 H[facility]CT RDW RBC Auto-Rto 15.7 % Above high normal 05/28/2025 11.5 - 14.5 HHCCT Hct VFr Bld Auto 30.4 % Below low normal 05/28/2025 39 - 54 H[facility]CT MCV RBC Auto 93.0 fL 05/28/2025 80 - 100 H[facility]CT PMV Bld Auto 8.7 fL 05/28/2025 7.5 - 12.5 H[facility]CT Hgb Bld-mCnc 9.6 g/dL Below low normal 05/28/2025 13 - 17.7 HHCCT MCH RBC Qn Auto 29.4 pg 05/28/2025 27 - [address] MCHC RBC Auto-mCnc 31.6 g/dL 05/28/2025 30 - 36 H[facility]CT Platelet num Bld Auto 340.0 Thou/uL 05/28/2025 150 - 450 H[facility]CT WBC num Bld Auto 3.7 Thou/uL Below low normal 05/28/2025 4 - 11 H[facility]CT WBC num Bld Auto 3.4 Thou/uL Below low normal 05/27/2025 4 - 11 H[facility]CT Hgb Bld-mCnc 9.8 g/dL Below low normal 05/27/2025 13 - 17.7 HHCCT PMV Bld Auto 9.0 fL 05/27/2025 7.5 - 12.5 H[facility]CT Platelet num Bld Auto 367.0 Thou/uL 05/27/2025 150 - 450 H[facility]CT MCHC RBC Auto-mCnc 31.6 g/dL 05/27/2025 30 - 36 H[facility]CT RBC num Bld Auto 3.34 Mil/uL Below low normal 05/27/2025 4.5 - 6.2 HHCCT MCH RBC Qn Auto 29.3 pg 05/27/2025 27 - [address] Hct VFr Bld Auto 31.0 % Below low normal 05/27/2025 39 - 54 HHCCT RDW RBC Auto-Rto 15.6 % Above high normal 05/27/2025 11.5 - 14.5 HHCCT MCV RBC Auto 93.0 fL 05/27/2025 80 - 100 H[facility]CT LMWH PPP Tram Driver-aCnc 0.36 IU/mL 05/27/2025 HHCCT Anticoagulant IV HEPARIN, UNFRACTIONATED 05/27/2025 HHCCT LMWH PPP Tram Driver-aCnc 0.34 IU/mL 05/27/2025 HHCCT Anticoagulant IV HEPARIN, UNFRACTIONATED 05/27/2025 H[facility]CT LMWH PPP Tram Driver-aCnc 0.33 IU/mL 05/26/2025 HHCCT Anticoagulant IV HEPARIN, UNFRACTIONATED 05/26/2025 HHCCT INR PPP 1.2 05/26/2025 HHCCT Prothrombin time 14.0 seconds Above high normal 05/26/2025 1 0 - 13.5 HHCCT Anticoagulant IV HEPARIN, UNFRACTIONATED 05/26/2025 HHCCT aPTT PPP 35.0 seconds 05/26/2025 25 - 36 H[facility]CT Anticoagulant IV HEPARIN, UNFRACTIONATED 05/26/2025 HHCCT PMV Bld Auto 8.5 fL 05/26/2025 7.5 - 12.5 HHCCT MCHC RBC Auto-mCnc 31.5 g/dL 05/26/2025 30 - 36 HHCCT Hct VFr Bld Auto 33.3 % Below low normal 05/26/2025 39 - 54 HHCCT Platelet num Bld Auto 336.0 Thou/uL 05/26/2025 150 - 450 HHCCT MCH RBC Qn Auto 28.8 pg 05/26/2025 27 - [address] RBC num Bld Auto 3.65 Mil/uL Below low normal 05/26/2025 4.5 - 6.2 HHCCT WBC num Bld Auto 3.8 Thou/uL Below low normal 05/26/2025 4 - 11 HHCCT Hgb Bld-mCnc 10.5 g/dL Below low normal 05/26/2025 13 - 17.7 HHCCT RDW RBC Auto-Rto 15.4 % Above high normal 05/26/2025 11.5 - 14.5 HHCCT MCV RBC Auto 91.0 fL 05/26/2025 80 - 100 HHCCT Vancomycin SerPl-mCnc 8.0 mg/L 05/26/2025 HHCCT Time of last dose Information not given 05/26/2025 HHCCT Creat SerPl-mCnc 0.44 mg/dL Below low normal 05/25/2025 0.5 - 1.3 HHCCT BUN SerPl-mCnc 4.0 mg/dL Below low normal 05/25/2025 8 - 21 HHCCT Potassium SerPl-sCnc 3.5 mmol/L 05/25/2025 3.4 - 5.3 HHCCT CO2 SerPl-sCnc 22.0 mmol/L 05/25/2025 22 - 33 HH CCT Calcium SerPl-mCnc 8.3 mg/dL Below low normal 05/25/2025 8.7 - 10.5 HHCCT BUN/Creat SerPl 9.0 Ratio Below low normal 05/25/2025 10 - 2 5 HHCCT Anion Gap Bld-sCnc 13.0 05/25/2025 7 - 17 HHCCT Glucose SerPl-mCnc 84.0 mg/dL 05/25/2025 65 - 99 HHCCT Sodium SerPl-sCnc 135.0 mmol/L Below low normal 05/25/2025 1 36 - 145 HHCCT GFR/BSA.pred SerPlBld AXW-VCK-LvRFzu >90.0 05/25/2025 59 - HHCCT Chloride SerPl-sCnc 100.0 mmol/L 05/25/2025 98 - 1 07 HHCCT Magnesium SerPl-mCnc 1.8 mg/dL 05/25/2025 1.6 - 2.7 HHCCT Phosphate SerPl-mCnc 3.0 mg/dL 05/25/2025 2.7 - 4.5 HHCCT Hgb Bld-mCnc 9.1 g/dL Below low normal 05/25/2025 13 - 17.7 HHCCT WBC num Bld Auto 4.4 Thou/uL 05/25/2025 4 - 11 HHCCT MCHC RBC Auto-mCnc 32.3 g/dL 05/25/2025 30 - 36 HHCCT Platelet num Bld Auto 271.0 Thou/uL 05/25/2025 150 - 450 HHCCT RDW RBC Auto-Rto 15.5 % Above high normal 05/25/2025 11.5 - 14.5 HHCCT Hct VFr Bld Auto 28.2 % Below low normal 05/25/2025 39 - 54 HHCCT MCV RBC Auto 91.0 fL 05/25/2025 80 - 100 HHCCT PMV Bld Auto 8.7 fL 05/25/2025 7.5 - 12.5 HHCCT RBC num Bld Auto 3.11 Mil/uL Below low normal 05/25/2025 4.5 - 6.2 HHCCT MCH RBC Qn Auto 29.3 pg 05/25/2025 27 - 31 [facility] CT Hgb Bld-mCnc 9.0 g/dL Below low normal 05/25/2025 13 - 17.7 HHCCT PMV Bld Auto 9.2 fL 05/25/2025 7.5 - 12.5 HHCCT RBC num Bld Auto 3.17 Mil/uL Below low normal 05/25/2025 4.5 - 6.2 HHCCT MCV RBC Auto 92.0 fL 05/25/2025 80 - 100 H[facility]CT Platelet num Bld Auto 279.0 Thou/uL 05/25/2025 150 - 450 HHCCT MCH RBC Qn Auto 28.4 pg 05/25/2025 27 - 31 [facility] CT Hct VFr Bld Auto 29.0 % Below low normal 05/25/2025 39 - 54 HHCCT WBC num Bld Auto 4.4 Thou/uL 05/25/2025 4 - 11 HHCCT MCHC RBC Auto-mCnc 31.0 g/dL 05/25/2025 30 - 36 HHCCT RDW RBC Auto-Rto 15.7 % Above high normal 05/25/2025 11.5 - 14.5 HHCCT Lymphocytes num Bld Auto 1.1 Thou/uL Below low normal 05/24/2025 1.5 - 4.5 HHCCT Neutrophils num Bld Auto 3.08 Thou/uL 05/24/2025 2 - 7.5 HHCCT Basophils num Bld Auto 0.01 Thou/uL 05/24/2025 0 - 0.2 HHCCT Imm Granulocytes num Bld Auto 0.02 Thou/uL 05/24/2025 0 - 0.1 HHCCT Monocytes num Bld Auto 0.77 Thou/uL 05/24/2025 0.2 - 1.5 HHCCT Eosinophil num Bld Auto 0.0 Thou/uL 05/24/2025 0 - 0.7 HHCCT Monocytes/leuk NFr Bld Auto 15.5 % 05/24/2025 CCT Basophils/leuk NFr Bld Auto 0.2 % 05/24/2025 CCT Eosinophil/leuk NFr Bld Auto 0.0 % 05/24/2025 [facility] Neutrophils/leuk NFr Bld Auto 61.8 % 05/24/2025 CCT Lymphocytes/leuk NFr Bld Auto 22.1 % 05/24/2025 [facility] Imm Granulocytes/leuk NFr Bld Auto 0.4 % 05/24/2025 CCT WBC num Bld Auto 5.0 Thou/uL 05/24/2025 4 - 11 H[facility]CT Hgb Bld-mCnc 9.8 g/dL Below low normal 05/24/2025 13 - 17.7 HHCCT RDW RBC Auto-Rto 15.5 % Above high normal 05/24/2025 11.5 - 14.5 HHCCT RBC num Bld Auto 3.36 Mil/uL Below low normal 05/24/2025 4.5 - 6.2 HHCCT Hct VFr Bld Auto 30.5 % Below low normal 05/24/2025 39 - 54 HHCCT PMV Bld Auto 8.7 fL 05/24/2025 7.5 - 12.5 HHCCT MCHC RBC Auto-mCnc 32.1 g/dL 05/24/2025 30 - 36 HHCCT MCV RBC Auto 91.0 fL 05/24/2025 80 - 100 HHCCT MCH RBC Qn Auto 29.2 pg 05/24/2025 27 - [address] Platelet num Bld Auto 255.0 Thou/uL 05/24/2025 150 - 450 HHCCT Sodium SerPl-sCnc 131.0 mmol/L Below low normal 05/23/2025 1 36 - 145 HHCCT GFR/BSA.pred SerPlBld OSZ-MEJ-SeLQgf >90.0 05/23/2025 59 - HHCCT Calcium SerPl-mCnc 8.2 mg/dL Below low normal 05/23/2025 8.7 - 10.5 HHCCT Glucose SerPl-mCnc 85.0 mg/dL 05/23/2025 65 - 99 HHCCT Potassium SerPl-sCnc 4.1 mmol/L 05/23/2025 3.4 - 5.3 HHCCT BUN/Creat SerPl 19.0 Ratio 05/23/2025 10 - 25 HH CCT Creat SerPl-mCnc 0.48 mg/dL Below low normal 05/23/2025 0.5 - 1.3 HHCCT CO2 SerPl-sCnc 21.0 mmol/L Below low normal 05/23/2025 22 - 33 HHCCT Chloride SerPl-sCnc 98.0 mmol/L 05/23/2025 98 - 10 7 HHCCT Anion Gap Bld-sCnc 12.0 05/23/2025 7 - 17 HHCCT BUN SerPl-mCnc 9.0 mg/dL 05/23/2025 8 - 21 [facility] T Magnesium SerPl-mCnc 2.0 mg/dL 05/23/2025 1.6 - 2.7 HHCCT Phosphate SerPl-mCnc 2.7 mg/dL 05/23/2025 2.7 - 4.5 HHCCT LMWH PPP Tram Driver-aCnc 0.37 IU/mL 05/23/2025 HHCCT Anticoagulant IV HEPARIN, UNFRACTIONATED 05/23/2025 HHCCT Chloride SerPl-sCnc 102.0 mmol/L 05/22/2025 98 - 1 07 HHCCT Glucose SerPl-mCnc 83.0 mg/dL 05/22/2025 65 - 99 HHCCT BUN SerPl-mCnc 8.0 mg/dL 05/22/2025 8 - 21 [facility] T Anion Gap Bld-sCnc 11.0 05/22/2025 7 - 17 HHCCT Creat SerPl-mCnc 0.41 mg/dL Below low normal 05/22/2025 0.5 - 1.3 HHCCT GFR/BSA.pred SerPlBld JTD-APO-KzUEfg >90.0 05/22/2025 59 - HHCCT Sodium SerPl-sCnc 135.0 mmol/L Below low normal 05/22/2025 1 36 - 145 HHCCT Potassium SerPl-sCnc 4.9 mmol/L 05/22/2025 3.4 - 5.3 HHCCT CO2 SerPl-sCnc 22.0 mmol/L 05/22/2025 22 - 33 HH CCT Calcium SerPl-mCnc 8.0 mg/dL Below low normal 05/22/2025 8.7 - 10.5 HHCCT BUN/Creat SerPl 20.0 Ratio 05/22/2025 10 - 25 HH CCT Phosphate SerPl-mCnc 2.9 mg/dL 05/22/2025 2.7 - 4.5 HHCCT Creat SerPl-mCnc 0.38 mg/dL Below low normal 05/22/2025 0.5 - 1.3 HHCCT Sodium SerPl-sCnc 134.0 mmol/L Below low normal 05/22/2025 1 36 - 145 HHCCT Calcium SerPl-mCnc 8.0 mg/dL Below low normal 05/22/2025 8.7 - 10.5 HHCCT Glucose SerPl-mCnc 91.0 mg/dL 05/22/2025 65 - 99 HHCCT BUN SerPl-mCnc 6.0 mg/dL Below low normal 05/22/2025 8 - 21 HHCCT Chloride SerPl-sCnc 100.0 mmol/L 05/22/2025 98 - 1 07 HHCCT Potassium SerPl-sCnc 3.8 mmol/L 05/22/2025 3.4 - 5.3 HHCCT BUN/Creat SerPl 16.0 Ratio 05/22/2025 10 - 25 HH CCT CO2 SerPl-sCnc 21.0 mmol/L Below low normal 05/22/2025 22 - 33 HHCCT Anion Gap Bld-sCnc 13.0 05/22/2025 7 - 17 HHCCT GFR/BSA.pred SerPlBld TEV-ISX-ClHZop >90.0 05/22/2025 59 - HHCCT Magnesium SerPl-mCnc 1.9 mg/dL 05/22/2025 1.6 - 2.7 HHCCT Albumin SerPl-mCnc 3.1 g/dL Below low normal 05/22/2025 3.4 - 4.8 HHCCT Chloride SerPl-sCnc 106.0 mmol/L 05/22/2025 98 - 1 07 HHCCT Creat SerPl-mCnc 0.35 mg/dL Below low normal 05/22/2025 0.5 - 1.3 HHCCT Potassium SerPl-sCnc 2.4 mmol/L Critically low 05/22/2025 3.4 - 5.3 HHCCT Anion Gap Bld-sCnc 17.0 05/22/2025 7 - 17 HHCCT BUN/Creat SerPl 14.0 Ratio 05/22/2025 10 - 25 HH CCT Sodium SerPl-sCnc 139.0 mmol/L 05/22/2025 136 - 14 5 HHCCT BUN SerPl-mCnc 5.0 mg/dL Below low normal 05/22/2025 8 - 21 HHCCT Glucose SerPl-mCnc 75.0 mg/dL 05/22/2025 65 - 99 HHCCT GFR/BSA.pred SerPlBld FVP-VHV-VhGClp >90.0 05/22/2025 59 - HHCCT Calcium SerPl-mCnc 6.3 mg/dL Critically low 05/22/2025 8.7 - 10.5 HHCCT CO2 SerPl-sCnc 16.0 mmol/L Below low normal 05/22/2025 22 - 33 HHCCT Magnesium SerPl-mCnc 1.5 mg/dL Below low normal 05/22/2025 1.6 - 2.7 HHCCT Phosphate SerPl-mCnc 2.1 mg/dL Below low normal 05/22/2025 2.7 - 4.5 HHCCT LMWH PPP Tram Driver-aCnc 0.4 IU/mL 05/22/2025 HHCCT Anticoagulant IV HEPARIN, UNFRACTIONATED 05/22/2025 HHCCT Hyaline Casts num/area UrnS LPF 1.0 per lpf 05/22/2025 0 - 4 HHCCT Clarity Ur Cloudy 05/22/2025 HHCCT Hgb Ur Ql Strip Negative 05/22/2025 - HHC CT Bilirub Ur Strip-mCnc Negative 05/22/2025 - HHCCT Leukocyte esterase Ur Ql Strip Negative 05/22/2025 - HHCCT Squamous num/area UrnS HPF 1.0 per hpf 05/22/2025 HHCCT Nitrite Ur Ql Strip Negative 05/22/2025 - HHCCT RBC num/area UrnS HPF 2.0 per hpf 05/22/2025 0 - 4 HHCCT pH Ur Strip 6.0 05/22/2025 5 - 8 HHCCT Prot Ur Strip-mCnc 30.0 mg/dL Abnormal 05/22/2025 - HHCCT Color Ur Yellow 05/22/2025 HHCCT WBC num/area UrnS HPF 1.0 per hpf 05/22/2025 0 - 4 HHCCT Glucose Ur Strip-mCnc Negative 05/22/2025 - HHCCT Sp Gr Ur Strip 1.02 05/22/2025 1.005 - 1.03 HHCCT Ketones Ur Strip-mCnc 80.0 mg/dL Abnormal 05/22/2025 - HHCCT RDW RBC Auto-Rto 14.6 % Above high normal 05/22/2025 11.5 - 14.5 HHCCT PMV Bld Auto 8.7 fL 05/22/2025 7.5 - 12.5 HHCCT MCHC RBC Auto-mCnc 33.3 g/dL 05/22/2025 30 - 36 HHCCT RBC num Bld Auto 3.96 Mil/uL Below low normal 05/22/2025 4.5 - 6.2 HHCCT Platelet num Bld Auto 230.0 Thou/uL 05/22/2025 150 - 450 HHCCT MCV RBC Auto 87.0 fL 05/22/2025 80 - 100 HHCCT MCH RBC Qn Auto 29.0 pg 05/22/2025 27 - [address] WBC num Bld Auto 3.5 Thou/uL Below low normal 05/22/2025 4 - 11 HHCCT Hgb Bld-mCnc 11.5 g/dL Below low normal 05/22/2025 13 - 17.7 HHCCT Hct VFr Bld Auto 34.5 % Below low normal 05/22/2025 39 - 54 HHCCT Sodium SerPl-sCnc 132.0 mmol/L Below low normal 05/21/2025 1 36 - 145 HHCCT GFR/BSA.pred SerPlBld LNZ-BIN-ExEMof >90.0 05/21/2025 59 - HHCCT Glucose SerPl-mCnc 107.0 mg/dL Above high normal 05/21/2025 65 - 99 HHCCT Potassium SerPl-sCnc 3.7 mmol/L 05/21/2025 3.4 - 5.3 HHCCT CO2 SerPl-sCnc 20.0 mmol/L Below low normal 05/21/2025 22 - 33 HHCCT BUN/Creat SerPl 18.0 Ratio 05/21/2025 10 - 25 HH CCT BUN SerPl-mCnc 7.0 mg/dL Below low normal 05/21/2025 8 - 21 HHCCT Calcium SerPl-mCnc 8.4 mg/dL Below low normal 05/21/2025 8.7 - 10.5 HHCCT Creat SerPl-mCnc 0.39 mg/dL Below low normal 05/21/2025 0.5 - 1.3 HHCCT Anion Gap Bld-sCnc 16.0 05/21/2025 7 - 17 HHCCT Chloride SerPl-sCnc 96.0 mmol/L Below low normal 05/21/2025 98 - 107 HHCCT Magnesium SerPl-mCnc 2.1 mg/dL 05/21/2025 1.6 - 2.7 HHCCT Phosphate SerPl-mCnc 2.2 mg/dL Below low normal 05/21/2025 2.7 - 4.5 HHCCT LMWH PPP Tram Driver-aCnc 0.41 IU/mL 05/21/2025 HHCCT Anticoagulant IV HEPARIN, UNFRACTIONATED 05/21/2025 HHCCT Phosphate SerPl-mCnc 2.0 mg/dL Below low normal 05/21/2025 2.7 - 4.5 HHCCT Magnesium SerPl-mCnc 1.7 mg/dL 05/21/2025 1.6 - 2.7 HHCCT Glucose SerPl-mCnc 86.0 mg/dL 05/21/2025 65 - 99 HHCCT Creat SerPl-mCnc 0.37 mg/dL Below low normal 05/21/2025 0.5 - 1.3 HHCCT Chloride SerPl-sCnc 97.0 mmol/L Below low normal 05/21/2025 98 - 107 HHCCT Potassium SerPl-sCnc 3.1 mmol/L Below low normal 05/21/2025 3.4 - 5.3 HHCCT CO2 SerPl-sCnc 19.0 mmol/L Below low normal 05/21/2025 22 - 33 HHCCT Calcium SerPl-mCnc 8.6 mg/dL Below low normal 05/21/2025 8.7 - 10.5 HHCCT BUN/Creat SerPl 14.0 Ratio 05/21/2025 10 - 25 HH CCT Anion Gap Bld-sCnc 18.0 Above high normal 05/21/2025 7 - 17 HHCCT GFR/BSA.pred SerPlBld BCX-GDH-ZuZQon >90.0 05/21/2025 59 - HHCCT Sodium SerPl-sCnc 134.0 mmol/L Below low normal 05/21/2025 1 36 - 145 HHCCT BUN SerPl-mCnc 5.0 mg/dL Below low normal 05/21/2025 8 - 21 HHCCT LMWH PPP Tram Driver-aCnc 0.53 IU/mL 05/21/2025 HHCCT Anticoagulant IV HEPARIN, UNFRACTIONATED 05/21/2025 HHCCT LMWH PPP Tram Driver-aCnc 0.67 IU/mL 05/20/2025 HHCCT Anticoagulant IV HEPARIN, UNFRACTIONATED 05/20/2025 HHCCT aPTT PPP 31.0 seconds 05/20/2025 25 - 36 HHCCT Anticoagulant OTHER AGENT OR UNKNOWN 05/20/2025 HHCCT LMWH PPP Tram Driver-aCnc 0.38 IU/mL 05/20/2025 HHCCT Anticoagulant Information not given 05/20/2025 HHCCT INR PPP 1.4 05/20/2025 HHCCT Prothrombin time 16.3 seconds Above high normal 05/20/2025 1 0 - 13.5 HHCCT Anticoagulant OTHER AGENT OR UNKNOWN 05/20/2025 HHCCT Potassium SerPl-sCnc 3.5 mmol/L 05/20/2025 3.4 - 5.3 HHCCT Glucose SerPl-mCnc 78.0 mg/dL 05/20/2025 65 - 99 HHCCT GFR/BSA.pred SerPlBld YIX-QDI-UtXCar >90.0 05/20/2025 59 - HHCCT Chloride SerPl-sCnc 101.0 mmol/L 05/20/2025 98 - 1 07 HHCCT Anion Gap Bld-sCnc 14.0 05/20/2025 7 - 17 HHCCT Sodium SerPl-sCnc 136.0 mmol/L 05/20/2025 136 - 14 5 HHCCT CO2 SerPl-sCnc 21.0 mmol/L Below low normal 05/20/2025 22 - 33 HHCCT BUN/Creat SerPl 18.0 Ratio 05/20/2025 10 - 25 HH CCT BUN SerPl-mCnc 6.0 mg/dL Below low normal 05/20/2025 8 - 21 HHCCT Calcium SerPl-mCnc 8.3 mg/dL Below low normal 05/20/2025 8.7 - 10.5 HHCCT Creat SerPl-mCnc 0.33 mg/dL Below low normal 05/20/2025 0.5 - 1.3 HHCCT Magnesium SerPl-mCnc 1.6 mg/dL 05/20/2025 1.6 - 2.7 HHCCT Phosphate SerPl-mCnc 1.7 mg/dL Below low normal 05/20/2025 2.7 - 4.5 HHCCT MCHC RBC Auto-mCnc 33.0 g/dL 05/20/2025 30 - 36 HHCCT RDW RBC Auto-Rto 14.1 % 05/20/2025 11.5 - 14.5 HHCCT RBC num Bld Auto 3.44 Mil/uL Below low normal 05/20/2025 4.5 - 6.2 HHCCT MCV RBC Auto 88.0 fL 05/20/2025 80 - 100 HHCCT PMV Bld Auto 9.0 fL 05/20/2025 7.5 - 12.5 HHCCT Platelet num Bld Auto 194.0 Thou/uL 05/20/2025 150 - 450 HHCCT MCH RBC Qn Auto 29.1 pg 05/20/2025 27 - [address] Hgb Bld-mCnc 10.0 g/dL Below low normal 05/20/2025 13 - 17.7 HHCCT Hct VFr Bld Auto 30.3 % Below low normal 05/20/2025 39 - 54 HHCCT WBC num Bld Auto 2.3 Thou/uL Below low normal 05/20/2025 4 - 11 HHCCT Magnesium SerPl-mCnc 1.7 mg/dL 05/19/2025 1.6 - 2.7 HHCCT Anion Gap Bld-sCnc 17.0 05/19/2025 7 - 17 HHCCT GFR/BSA.pred SerPlBld CAY-QMJ-VyEOaf >90.0 05/19/2025 59 - HHCCT Glucose SerPl-mCnc 136.0 mg/dL Above high normal 05/19/2025 65 - 99 HHCCT Creat SerPl-mCnc 0.41 mg/dL Below low normal 05/19/2025 0.5 - 1.3 HHCCT BUN SerPl-mCnc 9.0 mg/dL 05/19/2025 8 - 21 [facility] T Sodium SerPl-sCnc 139.0 mmol/L 05/19/2025 136 - 14 5 HHCCT Chloride SerPl-sCnc 102.0 mmol/L 05/19/2025 98 - 1 07 HHCCT Potassium SerPl-sCnc 4.0 mmol/L 05/19/2025 3.4 - 5.3 HHCCT BUN/Creat SerPl 22.0 Ratio 05/19/2025 10 - 25 HH CCT CO2 SerPl-sCnc 20.0 mmol/L Below low normal 05/19/2025 22 - 33 HHCCT Calcium SerPl-mCnc 8.3 mg/dL Below low normal 05/19/2025 8.7 - 10.5 HHCCT Phosphate SerPl-mCnc 3.4 mg/dL 05/19/2025 2.7 - 4.5 HHCCT LMWH PPP Tram Driver-aCnc 0.84 IU/mL 05/19/2025 HHCCT Anticoagulant IV HEPARIN, UNFRACTIONATED, BEING HELD 05/19/2025 HHCCT Potassium SerPl-sCnc 3.1 mmol/L Below low normal 05/19/2025 3.4 - 5.3 HHCCT POC Glucose 99.0 mg/dL 05/19/2025 65 - 99 HHCCT WBC num Bld Auto 1.6 Thou/uL Critically low 05/19/2025 4 - 1 1 HHCCT RBC num Bld Auto 3.45 Mil/uL Below low normal 05/19/2025 4.5 - 6.2 HHCCT MCHC RBC Auto-mCnc 33.3 g/dL 05/19/2025 30 - 36 HHCCT RDW RBC Auto-Rto 14.0 % 05/19/2025 11.5 - 14.5 HHCCT Hct VFr Bld Auto 30.6 % Below low normal 05/19/2025 39 - 54 HHCCT Platelet num Bld Auto 163.0 Thou/uL 05/19/2025 150 - 450 HHCCT Hgb Bld-mCnc 10.2 g/dL Below low normal 05/19/2025 13 - 17.7 HHCCT MCH RBC Qn Auto 29.6 pg 05/19/2025 27 - [address] PMV Bld Auto 8.8 fL 05/19/2025 7.5 - 12.5 HHCCT MCV RBC Auto 89.0 fL 05/19/2025 80 - 100 HHCCT Anion Gap Bld-sCnc 15.0 05/19/2025 7 - 17 HHCCT Glucose SerPl-mCnc 89.0 mg/dL 05/19/2025 65 - 99 HHCCT BUN SerPl-mCnc 11.0 mg/dL 05/19/2025 8 - [address] BUN/Creat SerPl 24.0 Ratio 05/19/2025 10 - 25 HH CCT Sodium SerPl-sCnc 139.0 mmol/L 05/19/2025 136 - 14 5 HHCCT Creat SerPl-mCnc 0.45 mg/dL Below low normal 05/19/2025 0.5 - 1.3 HHCCT Chloride SerPl-sCnc 102.0 mmol/L 05/19/2025 98 - 1 07 HHCCT Calcium SerPl-mCnc 8.2 mg/dL Below low normal 05/19/2025 8.7 - 10.5 HHCCT GFR/BSA.pred SerPlBld BCP-VRN-MnCGim >90.0 05/19/2025 59 - HHCCT CO2 SerPl-sCnc 22.0 mmol/L 05/19/2025 22 - 33 HH CCT Potassium SerPl-sCnc 2.9 mmol/L Below low normal 05/19/2025 3.4 - 5.3 HHCCT Phosphate SerPl-mCnc 2.2 mg/dL Below low normal 05/19/2025 2.7 - 4.5 HHCCT Magnesium SerPl-mCnc 1.7 mg/dL 05/19/2025 1.6 - 2.7 HHCCT LMWH PPP Tram Driver-aCnc 1.48 IU/mL 05/19/2025 HHCCT Anticoagulant IV HEPARIN, UNFRACTIONATED, BEING HELD 05/19/2025 HHCCT LMWH PPP Tram Driver-aCnc >2.0 IU/mL Critically high 05/19/2025 HHCCT Anticoagulant IV HEPARIN, UNFRACTIONATED, BEING HELD 05/19/2025 HHCCT LMWH PPP Tram Driver-aCnc >2.0 IU/mL Critically high 05/18/2025 HHCCT Anticoagulant APIXABAN (ELIQUIS) 05/18/2025 HHCCT Prothrombin time 25.7 seconds Above high normal 05/18/2025 1 0 - 13.5 HHCCT INR PPP 2.2 05/18/2025 HHCCT Anticoagulant IV HEPARIN, UNFRACTIONATED 05/18/2025 HHCCT aPTT PPP 37.0 seconds Above high normal 05/18/2025 25 - 36 [facility] Anticoagulant IV HEPARIN, UNFRACTIONATED 05/18/2025 [facility] LMWH PPP Tram Driver-aCnc >2.0 IU/mL Critically high 05/18/2025 [facility] Anticoagulant APIXABAN (ELIQUIS) 05/18/2025 [facility] RDW RBC Auto-Rto 13.9 % 05/18/2025 11.5 - 14.5 [facility] WBC num Bld Auto 2.1 Thou/uL Below low normal 05/18/2025 4 - 11 [facility] MCV RBC Auto 89.0 fL 05/18/2025 80 - 100 [facility] MCH RBC Qn Auto 29.4 pg 05/18/2025 27 - [address] Hct VFr Bld Auto 33.7 % Below low normal 05/18/2025 39 - 54 [facility] Platelet num Bld Auto 174.0 Thou/uL 05/18/2025 150 - 450 [facility] PMV Bld Auto 8.9 fL 05/18/2025 7.5 - 12.5 [facility] RBC num Bld Auto 3.78 Mil/uL Below low normal 05/18/2025 4.5 - 6.2 [facility] MCHC RBC Auto-mCnc 32.9 g/dL 05/18/2025 30 - 36 [facility] Hgb Bld-mCnc 11.1 g/dL Below low normal 05/18/2025 13 - 17.7 [facility] Segmented Neutrophil 33.0 % 05/18/2025 [facility] Monocytes/leuk NFr Bld Auto 7.0 % 05/18/2025 [facility] Neutrophils num Bld Auto 0.8 Thou/uL Below low normal 05/18/2025 2 - 7.5 [facility] Neuts Band num Bld Manual 2.0 % 05/18/2025 CCT Normochromic Bld Ql Smear Present 05/18/2025 CCT Eosinophil num Bld Auto 0.0 Thou/uL 05/18/2025 0 - 0.7 [facility] Monocyte, Absolute 0.2 Thou/uL 05/18/2025 0.2 - 1. 5 [facility] Eosinophil 1.0 % 05/18/2025 [facility] Normocytes Present 05/18/2025 [facility] Lymphocytes/leuk NFr Bld Auto 57.0 % 05/18/2025 [facility] Lymphocytes num Bld Auto 1.3 Thou/uL Below low normal 05/18/2025 1.5 - 4.5 [facility] MCHC RBC Auto-mCnc 33.4 g/dL 05/18/2025 30 - 36 [facility] RBC num Bld Auto 3.87 Mil/uL Below low normal 05/18/2025 4.5 - 6.2 [facility] MCV RBC Auto 87.0 fL 05/18/2025 80 - 100 [facility] WBC num Bld Auto 2.2 Thou/uL Below low normal 05/18/2025 4 - 11 [facility] RDW RBC Auto-Rto 13.7 % 05/18/2025 11.5 - 14.5 [facility] Hgb Bld-mCnc 11.3 g/dL Below low normal 05/18/2025 13 - 17.7 [facility] PMV Bld Auto 9.1 fL 05/18/2025 7.5 - 12.5 [facility] Hct VFr Bld Auto 33.8 % Below low normal 05/18/2025 39 - 54 [facility] MCH RBC Qn Auto 29.2 pg 05/18/2025 27 - [address] Platelet num Bld Auto 173.0 Thou/uL 05/18/2025 150 - 450 [facility] Albumin/Glob SerPl 1.2 Ratio 05/18/2025 1 - 3 [facility] Albumin SerPl-mCnc 3.8 g/dL 05/18/2025 3.4 - 4.8 [facility] Prot SerPl-mCnc 6.9 g/dL 05/18/2025 6.3 - 8.[address] AST SerPl-cCnc 21.0 U/L 05/18/2025 10 - 55 [facility] T ALP SerPl-cCnc 85.0 U/L 05/18/2025 45 - 128 [facility] T Bilirub Direct SerPl-mCnc 0.2 mg/dL 05/18/2025 0 - 0.2 [facility] ALT SerPl-cCnc 10.0 U/L 05/18/2025 10 - 55 [facility] T Globulin Ser Calc-mCnc 3.1 g/dL 05/18/2025 1.5 - 3.9 [facility] Bilirub SerPl-mCnc 1.0 mg/dL 05/18/2025 0.2 - 1 [facility] BUN/Creat SerPl 23.0 Ratio 05/18/2025 10 - 25 [facility] CCT Calcium SerPl-mCnc 9.0 mg/dL 05/18/2025 8.7 - 10.5 [facility] Creat SerPl-mCnc 0.52 mg/dL 05/18/2025 0.5 - 1.3 H [facility] Potassium SerPl-sCnc 3.5 mmol/L 05/18/2025 3.4 - 5.3 [facility] CO2 SerPl-sCnc 24.0 mmol/L 05/18/2025 22 - 33 [facility] Anion Gap Bld-sCnc 13.0 05/18/2025 7 - 17 [facility] GFR/BSA.pred SerPlBld [id number] >90.0 05/18/2025 59 - [facility] Chloride SerPl-sCnc 95.0 mmol/L Below low normal 05/18/2025 98 - 107 [facility] Glucose SerPl-mCnc 106.0 mg/dL Above high normal 05/18/2025 65 - 99 [facility] Sodium SerPl-sCnc 132.0 mmol/L Below low normal 05/18/2025 1 36 - 145 [facility] BUN SerPl-mCnc 12.0 mg/dL 05/18/2025 8 - [address] Phosphate SerPl-mCnc 2.7 mg/dL 05/18/2025 2.7 - 4.5 [facility] Magnesium SerPl-mCnc 1.9 mg/dL 05/18/2025 1.6 - 2.7 [facility] INR PPP 2.2 05/18/2025 [facility] Prothrombin time 25.0 seconds Above high normal 05/18/2025 1 0 - 13.5 [facility] Anticoagulant NO ANTI COAGULANT MEDS 05/18/2025 [facility] Encounters Encounter Type Encounter Reason Primary Diagnosis Location Date Inpatient Unspecified intestinal obstruction, unspecified as to partial versus complete obstruction Unspecified intestinal obstruction, unspecified as to partial versus complete obstruction [facility] 05/17/2025 Care Team Organization Name Specialty Phone Email Start Date End Da te [facility] 05/18/2025 [facility] 05/18/2025 [facility] 05/17/2025
== END 2025-05-30 12:10 | disposition home or self-care (01) ==
LOC: HO.HMCHD 11:30
PROVIDERS: Visit Provider Student in an Organized Health Care Education/Training Program
DX: D49.0 Neoplasm of unspecified behavior of digestive system (principal); Z43.3 Encounter for attention to colostomy; C18.9 Malignant neoplasm of colon, unspecified; C78.7 Secondary malignant neoplasm of liver and intrahepatic bile duct; I26.99 Other pulmonary embolism without acute cor pulmonale; I10 Essential (primary) hypertension; F41.9 Anxiety disorder, unspecified; R73.03 Prediabetes; E87.8 Other disorders of electrolyte and fluid balance, not elsewhere classified

== ENCOUNTER → 2025-05-30 11:30 | Outpatient (BNVA) | payer OTHER, SELFPAY | PROVIDERS: Visit Provider Student in an Organized Health Care Education/Training Program | DX: C20 Malignant neoplasm of rectum (principal); C78.7 Secondary malignant neoplasm of liver and intrahepatic bile duct; I26.99 Other pulmonary embolism without acute cor pulmonale; I10 Essential (primary) hypertension; F41.9 Anxiety disorder, unspecified; R73.03 Prediabetes; E87.8 Other disorders of electrolyte and fluid balance, not elsewhere classified; Z79.01 Long term (current) use of anticoagulants; Z79.891 Long term (current) use of opiate analgesic; Z79.899 Other long term (current) drug therapy; Z93.3 Colostomy status; Z13.31 Encounter for screening for depression; Z13.39 Encounter for screening examination for other mental health and behavioral disorders | CPT/HCPCS: 96127 ==

== ENCOUNTER 2025-06-01 07:29 | Outpatient (REF) | payer OTHER, SELFPAY ==
--- OUTSIDE RECORDS SUMMARY | 2020-12-31 00:29 | XMS_ITS | Continuity of Care Document ---
Author Organization Elias Gallegos [facility] Address [address] [place] [address] Phone Care Team Providers Care [employer] Member Other Ranks Name Role Phone Mila DICKENS, Rox Unavailable Unavailable Medications Medication Instructions Dosage Effective Dates (start - stop) Status Comments sertraline 100 mg tablet take 1 & 1/2 tabs daily - Active trazodone 50 mg tablet take 1 tablet by oral route every day at bedtime 50 MG - Active amitriptyline 10 mg tablet take 2 tablets every night at bedtime. for migraine prevention and sleep - Active terbinafine HCl 250 mg tablet take 1 tablet every day for 12 weeks, for toenail fungus - Active Procedures Procedure Date Psychotherapy 45 Min (38-52 Min) 2018 Psychotherapy 45 Min (38-52 Min) 2018 [facility] Visit, Mental Health, EST Patient M Psychiatrist Diagnostic Eval (no Medical Service) [facility] Visit, Mental Health, EST Patient F Psychotherapy 45 Min (38-52 Min) 2018 Psychotherapy 45 Min (38-52 Min) 2017 OFFICE/OUTPATIENT VISIT, EST Psychotherapy 45 Min (38-52 Min) 2017 [employer] Psychotherapy , 30 Min (16-37 Min) IMMUNIZATION ADMIN TDAP VACCINE >7 IM PREV VISIT, NEW, AGE 40-64 Advance Directives Directive Yes / No Effective Date File Name No Information Encounters Encounter Description Practice Location Reason(s) For Visit Diagnoses Date Provider Providers Copied on Encounter [facility], [address], [place], [place], [id number], [place] tel:[phone] [facility] No Information Bruce-0 8-202 1 [address]. [address] [place], [place], [id number], [place]. tel:[phone] [facility], [address], [place], [place], [id number], [place] tel:[phone] [facility] Depression, major, recurrent, mild May-2 9-201 9 [facility] Damion. [address] [place], [place], [id number], [place]. tel:[phone] [facility], [address], [place], [place], [id number], [place] tel:[phone] [facility] No Information May-2 0-201 9 No Information Psychotherapy 45 Min (38-52 Min) [facility], [address], [place], [place], [id number], [place] tel:[phone] [facility] Depression, major, recurrent, mild Apr-1 0-201 9 [facility] [address]. [address] [place], [place], [id number], [place]. tel:[phone] Psychotherapy 45 Min (38-52 Min) [facility], [address], [place], [place], [id number], [place] tel:[phone] [facility] Major depressive disorder, recurrent, mild Mar-2 0-201 9 [facility] [address]. [address] [place], [place], [id number], [place]. tel:[phone] [facility], [address], [place], [place], [id number], [place] tel:[phone] [facility] No Information Mar-1 9-201 9 [address] [place], [place], [id number], [place]. tel:[phone] [facility], [address], [place], [place], [id number], [place] tel:[phone] [facility] Major depressive disorder, recurrent, mild Sep- 9 No Information Psychiatrist Diagnostic Eval (no Medical Service) [facility], [address], [place], [place], [id number], [place] tel:[phone] [facility] Major depressive disorder, recurrent, mild Aug- 0- 9 [facility]. [address] [place] [address], [id number], [place]. tel:[phone] [facility], [address], [place], [place], [id number], [place] tel:[phone] [facility] Major depressive disorder, recurrent, mild b-0 9 No Information Psychotherapy 45 Min (38-52 Min) [facility], [address], [place], [place], [id number], [place] tel:[phone] [facility] Major depressive disorder, recurrent, mild 9 [facility]. [address] [place] [address], [id number], [place]. tel:[phone] Psychotherapy 45 Min (38-52 Min) [facility], [address], [place], [place], [id number], [place] tel:[phone] [facility] Major depressive disorder, recurrent, mild 8 [facility] [place]. [address] [place] [address], [id number], [place]. tel:[phone] OFFICE/OUTPATI ENT VISIT, EST [facility], [address], [place], [place], [id number], [place] tel:[phone] [facility] BP check (chief complaint) Elevated blood-pressu re reading without diagnosis of hypertension 8 No Information Psychotherapy 45 Min (38-52 Min) [facility], [address], [place], [place], [id number], [place] tel:[phone] [facility] Depression with anxiety 8 [address] [place], [place], [id number], [place]. tel:[phone] [facility], [address], [place], [place], [id number], [place] tel:[phone] [facility] No Information 8 [employer]. . Psychotherapy , 30 Min (16-37 Min) [facility], [address], [place], [place], [id number], [place] tel:[phone] [facility] Depression, unspecified depression typeGAD (generalized anxiety disorder) 8 No Information PREV VISIT, NEW, AGE 40-64 [facility], [address], [place], [place], [id number], [place] tel:[phone] [facility] initial visit (chief complaint) Encounter for preventative adult health care exam with abnormal findingsAnxi ety and depressionFa lona history of cardiovascul ar diseaseTobac co use disorder, continuousTr emor of both handsMigrain e without status migrainosus, not intractable, unspecified migraine typeToenail fungus 8 [facility] [place], [place], [id number], [place]. tel:[phone] Family History Family Member Type Diagnosis Age At Onset No Information Immunizations Vaccine Date Status Comments Tdap (Adacel) administered Source: New Im munization Record Influenza Quad MDV 0.5ml refused Source: New Immuniza tion Record Payers Payer name Insurance type Covered libertarian ID Authoriza tion(s) [facility] C3 ACO [id number] [facility] C3 ACO [id number] Social History Type Description Quantity Date Captured Comments Alcohol Use Details Unknown Caffeine Use Details Unknown Tobacco Use Status Smoking Status No Information Sex Male Chief Complaint And Reason For Visit No Information Reason For Referral Reason For Referral No Information Plan Of Treatment Date Type Action Status Goal Zoster vaccine (). Due on due Goal Unhealthy drug use screening . Due on due Goal FIT-DNA. Due on due Goal CT-Colonography. Due on due Goal BPRS. Due on due Goal FOBT. Due on due Goal APE. Due on due Goal Document SOGI Information. D ue on due Goal Colonoscopy. Due on due Goal Influenza vaccine. Due on due Goal Hepatitis C Screening. Due o n due Goal Tdap due Goal Tdap. Due on due Goal Hepatitis C Screening. Due o n due Goal Document SOGI Information. D ue on due Goal Colonoscopy. Due on due Goal APE. Due on due Goal Influenza vaccine. Due on due Goal DAST. Due on due Goal IAP. Due on due Goal PHQ-9. Due on du e Goal APE. Due on due Goal Influenza vaccine. Due on due Goal Colonoscopy. Due on due Goal Tdap. Due on due Goal FOBT. Due on due Goal DAST. Due on due Goal IAP. Due on due Goal PHQ-9. Due on du e Goal APE. Due on due Goal FOBT. Due on due Goal Tdap. Due on due Goal Influenza vaccine. Due on due Goal Diabetes Screening. Due on due Goal Colonoscopy. Due on due Goal Influenza vaccine. Due on due Goal Tdap. Due on due Goal APE. Due on due Goal FOBT. Due on due Goal Diabetes Screening. Due on due Goal Colonoscopy. Due on due Goal PHQ-9. Due on du e Goal DAST. Due on due Goal IAP. Due on due Goal IAP. Due on due Goal DAST. Due on due Goal PHQ-9. Due on du e Goal Colonoscopy. Due on due Goal FOBT. Due on due Goal APE. Due on due Goal Influenza vaccine. Due on due Goal Tdap. Due on due Goal PHQ-9. Due on du e Goal DAST. Due on due Goal IAP. Due on due Goal Influenza vaccine. Due on due Goal Tdap. Due on due Goal FOBT. Due on due Goal Colonoscopy. Due on due Goal Diabetes Screening. Due on due Goal APE. Due on due Goal DAST. Due on due Goal IAP. Due on due Goal PHQ-9. Due on du e Goal Colonoscopy. Due on due Goal Tdap. Due on due Goal FOBT. Due on due Goal APE. Due on due Goal Diabetes Screening. Due on due Goal Influenza vaccine. Due on due Goal Lipid panel. Due on due Goal APE. Due on due Goal Tdap. Due on due Goal Colonoscopy. Due on due Goal FOBT. Due on due Goal Lipid panel. Due on due Goal Influenza vaccine. Due on due Goal Diabetes Screening. Due on due Goal DAST. Due on due Goal PHQ-9. Due on du e Goal IAP. Due on due Goal PHQ-9. Due on du e Goal Diabetes Screening. Due on due Goal Influenza vaccine. Due on due Goal FOBT. Due on due Goal Lipid panel. Due on due Goal APE. Due on due Goal Tdap. Due on due Goal Colonoscopy. Due on due Goal DAST. Due on due Goal IAP. Due on due Goal Diabetes Screening. Due on due Goal Lipid panel. Due on due Goal FOBT. Due on due Goal APE. Due on due Goal Influenza vaccine. Due on due Goal Colonoscopy. Due on due Goal Tdap. Due on due Goal IAP. Due on due Goal PHQ-9. Due on du e Goal DAST. Due on due Goal Tdap. Due on due Goal Colonoscopy. Due on due Goal Influenza vaccine. Due on due Goal APE. Due on due Goal Lipid panel. Due on due Goal FOBT. Due on due Goal Diabetes Screening. Due on due Goal IAP. Due on due Goal DAST. Due on due Goal PHQ-9. Due on du e Goal Tdap. Due on due Goal Colonoscopy. Due on due Goal Influenza vaccine. Due on No due Goal APE. Due on due Goal FOBT. Due on due Goal Lipid panel. Due on due Goal Diabetes Screening. Due on N due Goal IAP. Due on due Goal DAST. Due on due Goal PHQ-9. Due on du e Goal Tdap. Due on due Goal Influenza vaccine. Due on No due Goal Colonoscopy. Due on due Goal FOBT. Due on due Goal Lipid panel. Due on due Goal APE. Due on due Goal Diabetes Screening. Due on due Goal PHQ-9. Due on du e Goal DAST. Due on due Goal IAP. Due on due Referral Ordered: Referrals: Behavioral Health - [facility]. Evaluate and treat ordered History Of Present Illness Encounter Date Complaint History Of Prese nt Illness BP check 53 yo male prese nts in NAD today for BP check.Last seen 06/07 w/DAWNA, with BP 145/93. POC begin amitryptiline 10mg/BID for migraine prevention. Today, pt reports feeling wellReports compliance migraine Rx. Denies missed doses of amitryptiline. Does not SMBP. Pt denies chest pain, SOB, new h/a, sudden changes in vision, palpitations.Pt reports positive se of amitryptiline, fewer migraines. Pt reports the migraines are not as severe as before. initial visit initial visit (comments) Has bee n physically disabled since 1999 due to neck injury, herniated disc, can shoot pain down left arm, neck. Has 2 sisters who are nurses. Mother, 85, had massive heart attack, spiral fracture, has been living with him. He gets severe anxiety, migraines, sometimes can't go outside, can't sleep or eat. Migraines are sharp, run back on the left side of his face. Doesn't take any meds for them to go away, sometimes smokes MJ. They can last a couple of days while he can't sleep. 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 Anxiety started with mom's illness in July. Does not have friends or other supports. Has history of depression was on zoloft, trazodone. Brothers have dm, heart trouble. Feels very depressed but denies every wanting to hurt himself, due to yarsanism reasons. Smokes 1/2 pack/day x 33 years Functional Status Date Functional Assessmen t No Information Instructions Date Instruction Additional Infor mation No Information Assessments Type Assessment Date No Information Patient Care Teams Name Effective Dates (start - stop) Status Members No Information
--- OUTSIDE RECORDS SUMMARY | 2025-05-17 20:59 | XMS_ITS | Encounter Summary ---
Author Organization [facility] Address [address] [place] [address] Care Team Providers Care Plug Making Operator Name Role Phone Unknown Primary Care Provider [phone] Hemanth Wolfe MD Primary Care Provider [phone] Reason for Referral * Home Health (Routine) - Pending Review Specialty Diagnoses / Procedures Referred By Contjavy t Referred To Contact Diagnoses Large bowel obstruction (HCC) Demetra Fernández, ALIN [address] [facility] [place] [address] Phone: tel: fax: Hemanth Wolfe MD [address] [place] [address] Phone: tel: fax: Referral ID Status Reason Start Date Expiration Date V isits Requested Visits Authorized [id number] Pending Review 05/24/2025 05/25/2026 999 999 Question Answer Primary Reason for Home Health (Enter diagnosis; avoid symptoms): Large bowel obstruction (HCC) [[id number]] Requested SOC Date Physician to follow patient's [...] Expiration Date Visits Re quested Visits Authorized [id number] 1 1 Encounter Details Date Type Department Care Team (Latest Contact Info) Description 05/17/2025 9:59 PM EDT - 05/29/2025 1:36 PM [facility] Hospital Encounter [facility] [address] [place] [address] Fabien Sullivan MD [address] [place] [address] Nehemias Enciso MD [address] [place] [address] Odell Sterling MD [address] [place] [address] Felipe Limon MD [address] [place] [address] Radha Gay MD [address] [place] [address] Large bowel obstruction (HCC) (Primary Dx) Discharge [...] any time in [facility] past [facility] were you homeless or living in a [place] health care facility (including now)? No 05/18/2025 [facility] Utilities Answer Date Recorded In the [...] this encounter Discharge Summaries * Kaylene Starr, ROLL GRINDER OPERATOR - 05/29/2025 9:39 AM EST Inpatient Discharge Summary Brief Overview Patient Demographics RIANA OCREAS 1965 60 y.o. Allergies[1] Admission Date: 05/17/2025 [...] Case IDs Date Procedure Surgeon Location Status [id number] 05/19/25 LAPAROSCOPY CREATION OF COLOSTOMY Radha Gay MD Main OR Comp Consults: Ostomy nurse specialist Nutrition PT/OT Medicine Chief Complaint: Large bowel obstruction (HCC) Presenting Problem/History of Present Illness As per original HPI; 60 y/o male with pmhx of metastatic rectal cancer who had stent placed 03/20/25 at [place] and is actively undergoing chemotherapy with Avastin and Lonsurf (last infusion of Avastin was 05/15/25), htn, gerd, adhd presents here as a transfer from [facility] with [facility]. Per patient he has had difficulty tolerating [...] of chemotherapy, he ended up back in [place] two days ago with distension and nausea. He reports no vomiting. He has had alternating bowel movements of diarrhea and more formed stools. He reports that he continues to pass gas. He denies any fever, chills, chest pain, sob, difficulty breath. He has not had any PO intake in the last 2 days since he went to [place]. At OSH he had imaging concerning for [...] Radha Gay MD; Location: Main OR; Service: [place]; Laterality: N/A; Admission Medications No medications prior [...] Prostatomegaly. This critical result was discussed with ROLL GRINDER OPERATOR by Dr. Demetra Crawford at 05/24/2025 3:20 PM EDT and it was ascertained that the content and urgency of the report was understood at the time of direct communication. Interpreted by: Munir Rawls MD Ethanol Maintenance Mechanic I personally reviewed the images and the [...] infectious/inflammatory process. Interpreted by: Pb Cummins MD Ethanol Maintenance Mechanic I personally reviewed the images and the [...] cancer who had stent placed 03/20/25 at [place] and is actively undergoing chemotherapy with Avastin [...] Center 06/04/2025 2:20 PM Gabbie Song PA-C [facility] [place] Gabbie Song PA-C [address] [place] [phone] Go on 06/04/2025 post operative follow up, Call office with any questions or concerns prior Hemanth Wolfe MD [address] [place] [phone] Follow up KRYSTAL Villalba 05/29/2025 12:18 [...] and cut wafer to size of stoma, [facility] [id number] applied Hold hand in place for 3 [...] Prostatomegaly. This critical result was discussed with ROLL GRINDER OPERATOR by Dr. Demetra Crawford at 05/24/2025 3:20 PM EDT and it was ascertained that the content and urgency of the report was understood at the time of direct communication. Interpreted by: Munir Rawls MD Ethanol Maintenance Mechanic I personally reviewed the images and the [...] Prostatomegaly. This critical result was discussed with ROLL GRINDER OPERATOR by Dr. Demetra Crawford at 05/24/2025 3:20 PM EDT and it was ascertained that the content and urgency of the report was understood at the time of direct communication. Interpreted by: Munir Rawls MD Ethanol Maintenance Mechanic I personally reviewed the images and the [...] level of independence with self-care tasks. Current [facility] Daily Activity Score: 20 Precautions/Restrictions: fall, other [...] Progressive Mobility Progressive Mobility Level Achieved Ambulation [facility] Daily Activity Putting on and taking off Lower Body Clothing? 3 Bathing (including washing/rinsing/drying)? 3 Toileting (includes using toilet, bedpan, or urinal)? 3 Putting on and taking off upper body clothing? 3 Taking care of personal grooming such as brushing teeth? 4 Eating meals? 4 [facility] Daily Activity Score 20 Progress Summary (OT) [...] Prostatomegaly. This critical result was discussed with ROLL GRINDER OPERATOR by Dr. Demetra Crawford at 05/24/2025 3:20 PM EDT and it was ascertained that the content and urgency of the report was understood at the time of direct communication. Interpreted by: Munir Rawls MD Ethanol Maintenance Mechanic I personally reviewed the images and the [...] Analysis of the most recent level(s) using [employer] gives the following patient-specific pharmacokinetic parameters: CL: [...] Prostatomegaly. This critical result was discussed with ROLL GRINDER OPERATOR by Dr. Demetra Crawford at 05/24/2025 3:20 PM EDT and it was ascertained that the content and urgency of the report was understood at the time of direct communication. Interpreted by: Munir Rawls MD Ethanol Maintenance Mechanic I personally reviewed the images and the [...] 0659 05/25/25 0700 - 05/26/25 0659 Shift 0696-5444 5022-4871 8055-0345 24 Hour Total 7053-3504 8915-2442 0885-3797 24 Hour Total INTAKE P.O. 240 240 [...] 87.6 kg (193 lb 2 oz) IBW: [place] body weight: 82.2 kg (181 lb 3.5 [...] of 0.48 mg/dL (L)). Assessment: Analysis using RELEASEIF gives the following predicted pharmacokinetic parameters: CL: [...] % Zane Pride PharmD A Document for: [facility] Title: Vancomycin: Pharmacy to Dose_[facility] Purpose: To provide instruction on pharmacy to [...] (Less than 28 days of age) Contact [facility]???[facility] for assistance. AUC Therapeutic Drug Monitoring: An [...] patient safety. For some infections, such as FILM AND VIDEO EDITOR infections, a higher range of 500-600 may [...] In patients with fluctuating renal function, a mcbj-to-cmllx strategy can be utilized. Target AUC Concentrations: A target AUC of 400 to 600 is recommended for all patients except those with FILM AND VIDEO EDITOR infections. For FILM AND VIDEO EDITOR infections, a higher range of 500-600 may [...] that were collected prior to admission to [facility]. This will allow Insight[employer]??? to recognize that [...] Nephrotoxic Agents: (list is not all-inclusive) Acyclovir [place] Aminoglycosides Loop Diuretics (usually higher doses) Amphotericin B and derivatives Methotrexate Angiotensin Inhibitors and Blockers NSAIDS (including RIDER-1 and RIDER-2 Inhibitors Calcineurin Inhibitors (cyclosporine, tacrolimus, sirolimus) Pentamidine Cidofovir Polymyxins (colistimethate and polymixin B) Contrast Media Piperacillin/tazobactam [place] Documentation Pharmacists should document in Rebls their plan for dosing and monitoring vancomycin [...] InsightRx??? web-based platform can still be utilized ([email or web address]). All general concepts or restrictions in this [...] lb 2 oz) filed at: 05/18/2025 0700 [place] body weight: 82.2 kg (181 lb 3.5 [...] progress daily. Zane Pride A Document for: [facility] Title: Pharmacist Automatic Antimicrobial Renal Dose Adjustment_[facility] Purpose: To define practices for pharmacist automatic antimicrobial renal dose adjustment Scope: Pharmacists, providers Policy Statement(s): Antibiotics included in the Pharmacist Automatic Antimicrobial Renal Dose Adjustment document will automatically be dose-adjusted for renal function and appropriate dosing. The pharmacist will automatically dose-adjust antibiotic frequencies, based on the patient???s estimated creatinine clearance If the indication specified at video and sound recorder does not meet the dosing recommendations within [...] be processed and documented in [facility]. All orders entered in [facility] should be entered as ???per protocol: no cosign required?? . Antimicrobial renal dose adjustments should be documented as ivents in Epic under ???Antimicrobial stewardship?? with the subtype ???renal dose adjustment?? . Ivents must be copied into the chart as a progress note. Definitions: Ivent: an ivent is a means of documentation in Epic viewable only to pharmacist. Appendix A: Adult Antimicrobial Dosing Guide [facility] Adult Antimicrobial Dosing Guide Antimicrobial Agent Creatinine [...] q24h 500/125 mg q24h Ampicillin (IV) Endocarditis/ FILM AND VIDEO EDITOR/ bacteremia/ osteomyelitis/ PJI/ severe^ 2 g q4h [...] based on effluent rate; see package insert [facility] Adult Antimicrobial Dosing Guide Antimicrobial Agent Creatinine [...] mg q12h 600 mg q12h Ceftazidime (IV) FILM AND VIDEO EDITOR/ pneumonia/ severe^ 2 g q8h 2 g [...] x1, then 150 mg q8h Ceftriaxone (IV) FILM AND VIDEO EDITOR or Enterococcal IE synergy 2 g q12h [...] mg/kg q48h Doxycycline (IV/PO) 100 mg q12h [facility] Adult Antimicrobial Dosing Guide Antimicrobial Agent Creatinine [...] less than 10 or HD 25 mg/kg q0814g 25 mg/kg q6h 25 mg/kg q12h 25 [...] treatment, refractory 400 mg q12h Meropenem (IV) FILM AND VIDEO EDITOR/VAP 2 g q8h 1 g q8h CrCl [...] mg q12h Nafcillin (IV) 2 g q4h [facility] Adult Antimicrobial Dosing Guide Antimicrobial Agent Creatinine [...] 450 mg twice weekly 450 mg q24h [facility] Adult Antimicrobial Dosing Guide Antimicrobial Agent Creatinine [...] infectious/inflammatory process. Interpreted by: Pb Cummins MD Ethanol Maintenance Mechanic I personally reviewed the images and the [...] level of independence with functional mobility. Current [facility] Basic Mobility Score: 22 Rehab Plan of [...] Level Achieved Ambulation Ambulation Distance (Feet) 400 [facility] Basic Mobility Turning from your back to [...] Climbing 3-5 steps with a railing? 3 [facility] Basic Mobility Score 22 Therapy Assessment/Plan (PT) [...] Workman PT Please reach out to this chart writer via Axiatat with any questions. * Rosanna Day RN - 05/23/2025 11:43 AM EDT 05/23/25 1142 Discharge Coordination/Tasks Status Post Discharge Needs/Treatments Care Home Home Visit;PT Patient/Patient Ed Tech Provided With [facility] Company Preferences(s) Homecare Company Preference(s) [facility] Case Management Care Plan Note Summary: CM spoke with patient and his spouse at bedside per family's request. Spouse stated that patient is active with [facility] for homecare services. CM answered all questions regarding discharge plan. CM contacted [facility] @ [phone] who confirmed patient is active with services. CM also updated agency on plan for discharge tomorrow. Requested to have discharge paperwork faxed @ [phone]. Recommendation: Anticipate transition home with services when [...] by physical and occupational therapy. Seen by director inpatient headache program yesterday. Producing 325 mL stool, tolerating low [...] 05/23/25 0605/23/25 07 - 05/24/25 0659 Shift 7883-9488 1292-8834 7601-3910 24 Hour Total 7671-2012 7007-2964 5136-4720 24 Hour Total INTAKE P.O. 940 940 [...] 0659 05/22/25 07 - 05/23/25 0659 Shift 1183-3702 3227-6049 8185-6004 24 Hour Total 5390-1822 4060-8740 4312-0919 24 Hour Total INTAKE P.O. 360 360 [...] 0659 05/21/25 07 - 05/22/25 0659 Shift 0937-8053 7478-4368 4364-4361 24 Hour Total 1847-7084 4201-0498 6234-0756 24 Hour Total INTAKE I.V.(mL/kg) 15.8(0.2) 0.6(0) [...] 05/19/25699 - 05/20/2565805/20/25699 - 05/21/25 0659 Shift 4550-9211 8731-5885 2146-5659 24 Hour Total 7194-2384 3306-0951 6254-5047 24 Hour Total INTAKE I.V.(mL/kg) 1823.4(20.8) 1(0) [...] inpatient Arrived From Hospital Required Notices Provided ([facility]) Initial Information Source of Information patient;health [...] were you homeless or living in a [place] health care facility (including now)? N Food Insecurity Within the [...] In the past 12 months has the [employer], gas, oil, or water [employer] threatened to shut off services in your [...] with help/services Patient/Family Anticipated Services at Transition ophthalmic medical technician Transportation Anticipated family or friend will provide Outpatient/Agency/Support Group Needs infusion therapy, outpatient Current Discharge Risk chronically ill;physical impairment Discharge Coordination/Tasks Status Post Discharge Needs/Treatments Care Home Home Visit;Chemotherapy * Felipe Limon MD [...] of Discharge: 05/19/2025 {Click to update KRISTA: [id number]} VTE Time Out IMPROVE SCORE: 7 (05/17/2025 [...] to review. This report was generated using [employer] dictation software. Although every attempt has been [...] chemotherapy, either failure to thrive. Sent from [facility] for concern for large bowel obstruction in the setting of colonic stent malfunctioning Assessment & Plan Large bowel obstruction (HCC) Rectal cancer metastasized to liver (HCC) CT at [facility] significant for small and large bowel [...] data in the 24 hours ending 05/17/25 4395 Physical Exam Constitutional: Appearance: He is ill-appearing, [...] Timmons RN - 05/29/2025 1:36 PM EST [facility] Ost[facility] Consult Visit Date: 05/29/2025 Patient [...] again, barrier spray applied, new pouch Convatec 106400 one piece cut to fit applied and [...] and cut wafer [facility] stoma, [facility] [id number] applied Hold hand in place for 3 minutes Sign: Kierra Timmons RN, CWOCN 05/29/2025 1:39 PM * Danisha Hernandez RN - 05/28/2025 1:37 PM EST [facility] Consult Visit Date: 05/28/2025 Patient [...] exact size. - Apply new pouch, Convatec (#095496) flat, one piece cut to fit. - Hold in place for 2-3 mins using warmth of hands to secure wafer - Empty pouch when 1/3-1/2 full. Apply new pouching system every 3-5 days. Sign: Danisha Hernandez RN, CWOCN 05/28/2025 1:37 PM * Kierra Timmons RN - 05/25/2025 11:58 AM EDT [facility] Consult Visit Date: 05/25/2025 Patient [...] measured and wafer cut to size, Convatec 905703 wafer opening cut to size of stoma, [...] exact size. - Apply new pouch, Convate (#132319) flat, one piece cut to fit. - Hold in place for 2-3 mins using warmth of hands to secure wafer - Empty pouch when 1/3-1/2 full. Apply new pouching system every 3-5 days. Sign: Kierra Timmons RN, CWOCN 05/25/2025 11:58 AM * Danisha Hernandez RN - 05/24/2025 10:21 AM EDT [facility] Consult Visit Date: 05/24/2025 Patient [...] we have available. Patient given box of [place] cut to fit 70mm wafers and drainable pouches for future use. We talked about different types andbrands of pouches available. Patient agreeable to use one piece [facility][id number] flat cut to fit one piece pouch [...] exact size. - Apply new pouch, Convatec (#698242) flat, one piece cut to fit. - Hold in place for 2-3 mins using warmth of hands to secure wafer - Empty pouch when 1/3-1/2 full. Apply new pouching system every 3-5 days. Sign: Danisha Hernandez RN, CWOCN 05/24/2025 10:21 AM * Rupal Nolen RN - 05/23/2025 4:03 PM EDT [facility] Consult Visit Date: 05/23/2025 Patient [...] to exact size. - Apply new pouch, [facility] (#704422) flat, one piece cut to fit. - Hold in place for 2-3 mins using warmth of hands to secure wafer - Empty pouch when 1/3-1/2 full. Apply new pouching system every 3-5 days. Sign: Rupal Nolen RN, CWON 05/23/2025 4:03 PM * Rupal Nolen RN - 05/22/2025 6:15 PM EDT [facility] Consult Visit Date: 05/22/2025 Patient [...] to exact size. - Apply new pouch, [facility] (#861479) flat, one piece cut to fit. - Hold in place for 2-3 mins using warmth of hands to secure wafer - Empty pouch when 1/3-1/2 full. Apply new pouching system every 3-5 days. Sign: Rupal Nolen RN, CWON 05/22/2025 6:15 PM * Rupal Nolen RN - 05/21/2025 5:29 PM EDT [facility] Consult Visit Date: 05/21/2025 Patient [...] how to cut opening of a Convatec 984356 and apply Saritha then pouch over stoma. [...] Apply Saritha - Apply new pouch, Convate (#709323) flat, one piece cut to fit. - Hold in place for 2-3 mins using warmth of hands to secure wafer - Empty pouch when 1/3-1/2 full. Apply new pouching system every 3-5 days. Sign: Rupal Nolen RN, CWON 05/21/2025 5:29 PM * Aki Gomez, STUDENT - 05/21/2025 11:22 AM EDTAssociated Order(s): IP CONSULT TO NUTRITION SERVICES [facility] Nutrition Note Visit Type: initial assessment Reason [...] reported muscle and fat wasting and this chart writer performed NFPE. Pt met ASPEN guidelines [...] a year or two. Reports that in 2811-3765 he lost 115lbs unintentionally d/t cancer. Nutrition [...] lb 2 oz) Fluids: 2500ml based on HARDBOARD COATING MACHINE OPERATOR Method Current Diet: Diet Clear Liquid Patient [...] patient and approve the following documentation. Sign: Itezl Echevarria RD 05/21/2025 4:07 PM * Marcelle [...] rectus abdominis muscle located upon palpation in [id number] position. Pt identified belt line. Pt with [...] 05/19 for open diverting ostomy creation - director inpatient headache program for marking - general surgery team will [...] cancer who had stent placed 03/20/25 at [place] and is actively undergoing chemotherapy with Avastin [...] of chemotherapy, he ended up back in [place] two days ago with distension and nausea. He reports no vomiting. He has had alternating bowel movements of diarrhea and more formed stools. He reports that he continues to pass gas. He denies any fever, chills, chest pain, sob, difficulty breath. He has not had any PO intake in the last 2 days since he went to [place]. At OSH he had imaging concerning for [...] in this encounter ED Notes * Ruth Chugn RN - 05/18/2025 5:52 AM EDT S Situation Riana Coreas is a 60 y.o. male with a chief complaint of Abdominal Pain Riana Coreas is being admitted with an admitting diagnosis of: 1. Large bowel obstruction (HCC) . B Background Stated Reason for Visit: [facility]a from [facility] for stent malfunction, not causing a large [...] Chung RN 05/18/25 5:52 AM Phone number: [phone] Ruth Chung RN 05/18/25 0558 * Ruth [...] past pertinent EXTERNAL medical records which described: [facility] I reviewed the patient's current medication [...] MD 05/18/25 10:30 PM Please contact via [employer] or at extension [phone] with any questions or concerns. This report was generated using Mimocoation software. Although every attempt has been made [...] EST PATIENT DISCHARGED 05/29/2025 Per State of [place] General Statutes Sec: 38a-226c: Notification of determination shall be mailed or otherwise communicated within 2 business days of receipt of all information necessary to complete the review. Please fax authorization determination to [phone] or call [phone] * Plan of Care - Malka Allen [...] Magaña, RD - 05/29/2025 10:34 AM EST [facility] Nutrition Note Visit Type: follow up assessment [...] of Nutrition Care: Collaboration with RN via [facility] Nutrition Plan for Discharge/Transfer: Low [...] lb 2 oz) Fluids: 2500ml based on HARDBOARD COATING MACHINE OPERATOR Method Current Diet: Diet Additional Diets; Low [...] and recommendations based on nutrition/clinical status. Sign: Citlalil Magaña RD 05/29/2025 10:34 AM * Plan [...] x2 infusing at 15u/kg/hr, next anti Xa Fred. Fall precautions maintained. Francoise Pierce 05/27/2025 3:44 [...] faxed health information of hospital stay to [facility] for the dates of 05/17 to [...] level of independence with functional mobility. Baseline [facility] Basic Mobility Score: 24 Current [facility] Basic Mobility Score: 17 Objective Data ROM: [...] Radha Gay MD; Location: Main OR; Service: [place]; Laterality: N/A; Flowsheet Data 05/22/25 0940 Physical [...] Level Achieved Ambulation Ambulation Distance (Feet) 75 [facility] Basic Mobility Turning from your back to [...] Climbing 3-5 steps with a railing? 2 [facility] Basic Mobility Score 17 Therapy Assessment/Plan (PT) [...] Goal 1, PT) bed mobility activities, all [place] Level/Cues Needed (Bed Mobility Goal 1, PT) modified independence Time Frame (Bed Mobility Goal 1, PT) 1 week Transfer Goal 1 (PT) Activity/Assistive Device (Transfer Goal 1, PT) transfers, all [place] Level/Cues Needed (Transfer Goal 1, PT) modified independence Time Frame (Transfer Goal 1, PT) 1 week Gait Training Goal 1 (PT) Activity/Assistive Device (Gait Training Goal 1, PT) gait (walking locomotion);assistive device use;walker, rolling [place] Level (Gait Training Goal 1, PT) modified independence Distance (Gait Training Goal 1, PT) 250 ft Time Frame (Gait Training Goal 1, PT) 2 weeks Stairs Goal 1 (PT) Activity/Assistive Device (Stairs Goal 1, PT) stairs, all skills [place] Level/Cues Needed (Stairs Goal 1, PT) modified independence Number of Stairs (Stairs Goal 1, PT) 5 Time Frame (Stairs Goal 1, PT) 2 weeks Sign: Ania Workman, PT Please reach out via ShopReplyext to this chart writer with any questions, thank you. * [...] mobility, uses rollator as needed. 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 +drives Environmental Supports and Barriers: supportive spouse, [...] level of independence with self-care tasks. Baseline [facility] Daily Activity Score: 24 Current [facility] Daily Activity Score: 17 Objective Data Cognitive [...] Dressing: min A to don and fasten [facility] gown in standing LB Dressing: able to [...] Radha Gay MD; Location: Main OR; Service: [place]; Laterality: N/A; Flowsheet Data 05/22/25 0839 OT [...] bed, alert and agreeable to OT. +PIV +KEY ACCOUNT DIRECTOR pump Pertinent History of Current Functional Problem [...] mobility, uses rollator as needed. 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 3 Bathing (including washing/rinsing/drying)? 3 Toileting (includes using toilet, bedpan, or urinal)? 1 Putting on and taking off upper body clothing? 3 Taking care of personal grooming such as brushing teeth? 3 Eating meals? 4 [facility] Daily Activity Score 17 Therapy Assessment/Plan (OT) [...] Device (Transfer Goal 1, OT) transfers, all [place] Level/Cues Needed (Transfer Goal 1, OT) modified independence Time Frame (Transfer Goal 1, OT) 2 weeks Bathing Goal 1 (OT) Activity/Device (Bathing Goal 1, OT) bathing skills, all [place] Level/Cues Needed (Bathing Goal 1, OT) modified independence Time Frame (Bathing Goal 1, OT) 2 weeks Dressing Goal 1 (OT) Activity/Device (Dressing Goal 1, OT) lower body dressing [place]/Cues Needed (Dressing Goal 1, OT) modified independence Time Frame (Dressing Goal 1, OT) 2 weeks Toileting Goal 1 (OT) Activity/Device (Toileting Goal 1, OT) other (see comments) (ostomy management) [place] Level/Cues Needed (Toileting Goal 1, OT) modified [...] VSS Temp 99.8 Pain controlled with IV KEY ACCOUNT DIRECTOR. Carlton cath with good urine output. Abd: soft, nondistended, appropriately TTP, ostomy pink patent viable with small amount of yellow-green output Plan - D/c Carlton - Diet: advance to full CLD, IVF LR@50 hr - DVT ppx: heparin gtt - Pain control: IV KEY ACCOUNT DIRECTOR - Monitor vitals / strict I&Os - [...] air. Pain is very well managed with joint filler iv dilaudid set at scheduled interval. Carlton [...] Pain well controlled throughout shift with Dilaudid KEY ACCOUNT DIRECTOR. NPO status maintained.NGT to gravity today, tape [...] air. Pain is very well managed with joint filler iv dilaudid set at scheduled interval. No [...] Progress: improving Patient admitted from PACU to [place] [address]. Arrived at 1300hrs, accompanied by nurse on [...] Case IDs Date Procedure Surgeon Location Status [id number] 05/19/25 LAPAROSCOPY CREATION OF COLOSTOMY Radha Gay [...] original note were not included. [facility] [address] [place] [id number] OPERATIVE REPORT Patient Name: Riana Coreas Date of : 1965 Date of Procedure: 05/19/2025 Surgeons and Role: * Radha Gay MD - Primary * Marcela Lyn DO - Resident - Assisting Pre-op Diagnosis: Large bowel obstruction (HCC) [K56.609] Post-Op Diagnosis Codes: * Large bowel obstruction (HCC) [K56.609] Details of Procedure Procedure(s): LAPAROSCOPY CREATION OF COLOSTOMY Additional Procedures Surgeon: Radha Gay MD Test Deck Supervisor: Marcela Lyn, PGY3 Anesthesia: general Indications: 60-year-old [...] pulled out through this incision using a [place]. A small hole in the mesentery was [...] closed with an 0 Vicryl in a [id number] fashion x 2 and with 0 vicryl [...] 05/19 for open diverting ostomy creation - director inpatient headache program for marking - general surgery team will [...] * Assessment & Plan Note - Felipe iLmon MD - 05/18/2025 7:54 PM EDT Associated [...] - 05/18/2025 4:16 PM EDT Per State [facility] General Statutes Sec: 38a-226c: Notification of determination communicated within 2business days of receipt of all information necessary to complete the review. Please fax authorization determination to [phone] or call [phone] * Plan of Care - Marcela Lyn [...] GI interventions planned. Will sign off. Please [place] Text CTGI B with questions. 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 He was transferred from [facility] for concern for large bowel obstruction [...] & o, lives with his in [address] [facility]. He ambulates and performs self care independently [...] PCP: Oncologist is Hemanth Wolfe out of [facility] Anticipated transportation: Family Referrals made: None [...] Problem(s): Large bowel obstruction (HCC) CT at [facility] significant for small and large bowel distention and concern for obstructiverectal stent and hepatic mets and gallbladder hydrops Keep the patient n.p.o. Start patient on IV fluid GI consulted by the ED follow recs * Assessment & Plan Note - Nehemias Mendoza MD - 05/18/2025 12:11 AM EDTAssociated Problem(s): Rectal cancer metastasized to liver (HCC) CT at [facility] significant for small and large bowel [...] considered inoperable from his previous oncologist at [facility], Dr. Hemanth Wolfe. Because this rectal [...] documented in this encounter Plan of Treatment Scheduled Referrals Name Type Priority Associated Diagnoses [...] 11:55 AM EST 05/29/2025 11:57 AM EST us Fabien Sullivan MD POINT OF CARE TEST ORDERABLES Fi nal Result HOSPITAL LAB See Below * Heparin Assay (Anti-Xa) (05/29/2025 5:31 AM EST) Anti Xa 0.15 IU/mL 05/29/2025 7:53 AM EST [facility] Comment: (NOTE) Heparin Thromboembolic/Standard/Full Dose Protocol: [...] IV HEPARIN, UNFRACTIONATED 05/29/2025 5:02 AM EST [facility] Blood Blood specimen / Unknown 05/29/2025 5:31 AM EST 05/29/2025 7:13 AM EST Radha Gay MD LAB BLOOD ORDERABLES Final Result Performing Organization Address City/State/[place] Co de Phone Number [address] [address], [address] [address] * CT Abdomen+pelvis w/contrast (05/28/2025 10:53 AM [...] 4.0 - 11.0 Thou/uL 05/28/2025 5:18 AM [facility] Platelet Count 340 150 - 450 Thou/uL 05/28/2025 5:18 AM [facility] Hemoglobin 9.6(L) 13.0 - 17.7 g/dL 05/28/2025 5:18 AM [facility] Hematocrit 30.4(L) 39.0 - 54.0 % 05/28/2025 5:18 AM [facility] Red Blood Cell Count 3.26(L) 4.50 - 6.20 Mil/uL 05/28/2025 5:18 AM [facility] MCV 93 80 - 100 fL 05/28/2025 5:18 AM [facility] MCH 29.4 27.0 - 31.0 pg 05/28/2025 5:18 AM [facility] MCHC 31.6 30.0 - 36.0 g/dL 05/28/2025 5:18 AM [facility] RDW 15.7(H) 11.5 - 14.5 % 05/28/2025 5:18 AM [facility] MPV 8.7 7.5 - 12.5 fL 05/28/2025 5:18 AM [facility] Blood Blood specimen / Unknown 05/28/2025 4:40 AM EST 05/28/2025 5:05 AM EST Brandee Orellana MD LAB BLOOD ORDERABLES [place] [address], [place] [address] * Heparin Assay (Anti-Xa) (05/28/2025 4:40 AM EST) Anti Xa 0.32 IU/mL 05/28/2025 5:21 AM [facility] Comment: (NOTE) Heparin Thromboembolic/Standard/Full Dose Protocol: [...] Anticoagulant IV HEPARIN, UNFRACTIONATED 05/28/2025 3:39 AM [facility] Blood Blood specimen / Unknown 05/28/2025 4:40 AM EST 05/28/2025 5:05 AM EST Radha Gay MD LAB BLOOD ORDERABLES [place] [address], [place] [address] * Heparin Assay (Anti-Xa) (05/27/2025 5:30 AM EST) Anti Xa 0.36 IU/mL 05/27/2025 6:31 AM [facility] Comment: (NOTE) Heparin Thromboembolic/Standard/Full Dose Protocol: [...] Anticoagulant IV HEPARIN, UNFRACTIONATED 05/27/2025 3:05 AM [facility] Blood Blood specimen / Unknown 05/27/2025 5:30 AM EST 05/27/2025 6:16 AM EST Radha Gay MD LAB BLOOD ORDERABLES [place] [address], [place] [address] * (ABNORMAL) COMPLETE BLOOD COUNT, WITHOUT DIFFERENTIAL (05/27/2025 5:30 AM EST) [facility] White Blood Cell Count 3.4(L) 4.0 - 11.0 Thou/uL 05/27/2025 6:41 AM [facility] Platelet Count 367 150 - 450 Thou/uL 05/27/2025 6:41 AM [facility] Hemoglobin 9.8(L) 13.0 - 17.7 g/dL 05/27/2025 6:41 AM [facility] Hematocrit 31.0(L) 39.0 - 54.0 % 05/27/2025 6:41 AM [facility] Red Blood Cell Count 3.34(L) 4.50 - 6.20 Mil/uL 05/27/2025 6:41 AM [facility] MCV 93 80 - 100 fL 05/27/2025 6:41 AM [facility] MCH 29.3 27.0 - 31.0 pg 05/27/2025 6:41 AM [facility] MCHC 31.6 30.0 - 36.0 g/dL 05/27/2025 6:41 AM [facility] RDW 15.6(H) 11.5 - 14.5 % 05/27/2025 6:41 AM [facility] MPV 9.0 7.5 - 12.5 fL 05/27/2025 6:41 AM [facility] Blood Blood specimen / Unknown 05/27/2025 5:30 AM EST 05/27/2025 6:16 AM EST Nitish Nunez MD LAB BLOOD ORDERABLES [place] [address], [place] [address] * Heparin Assay (Anti-Xa) (05/27/2025 12:45 AM EDT) Anti Xa 0.34 IU/mL 05/27/2025 1:10 AM EDT [facility] Comment: (NOTE) Heparin Thromboembolic/Standard/Full Dose Protocol: [...] IV HEPARIN, UNFRACTIONATED 05/27/2025 12:35 AM EDT [facility] Blood Blood specimen / Unknown 05/27/2025 12:45 AM EDT 05/27/2025 12:57 AM EDT Radha Gay MD LAB BLOOD ORDERABLES Final Result [address] [address], [place] [address] * Heparin Assay (Anti-Xa) (05/26/2025 6:45 PM EDT) Anti Xa 0.33 IU/mL 05/26/2025 7:13 PM EDT [facility] Comment: (NOTE) Heparin Thromboembolic/Standard/Full Dose Protocol: [...] IV HEPARIN, UNFRACTIONATED 05/26/2025 6:21 PM EDT [facility] Blood Blood specimen / Unknown 05/26/2025 6:45 PM EDT 05/26/2025 7:00 PM EDT Radha Gay MD LAB BLOOD ORDERABLES Final Result Performing Organization Address [facility]/[place] Co de Phone Number [address] [address], [place] [address] * Partial Thromboplastin Time (PTT) (05/26/2025 11:23 AM EDT) Anticoagulant IV HEPARIN, UNFRACTIONATED 05/26/2025 11:23 AM EDT [facility] Partial Thromboplastin Time (PTT) 35 25 - 36 seconds 05/26/2025 12:12 PM EDT [facility] Blood Blood specimen / Unknown 05/26/2025 11:23 AM EDT 05/26/2025 11:49 AM EDT Roselia Walters MD LAB BLOOD ORDERABLES Final Result Performing Organization Address City/[facility]/ZIP [place] [address], [place] [address] * (ABNORMAL) Protime-INR (05/26/2025 11:23 AM EDT) Pathologist [facility] Anticoagulant IV HEPARIN, UNFRACTIONATED 05/26/2025 11:23 AM EDT [facility] Prothrombin Time (PT) 14.0(H) 10.0 - 13.5 seconds 05/26/2025 12:12 PM EDT [facility] INR 1.2 05/26/2025 12:12 PM EDT [facility] Comment:INR Therapeutic Rang es: Standard dose anticoagulant 2.0 to 3.0, High dose anticoagulant 2.5-3.5. Blood Blood specimen / Unknown 05/26/2025 11:23 AM EDT 05/26/2025 11:49 AM EDT Roselia Walters MD LAB BLOOD ORDERABLES Final Result Performing Organization Address City/[facility]/ZIP [place] [address], [place] [address] * (ABNORMAL) Complete Blood Count WITHOUT Differential (05/26/2025 11:23 AM EDT) Pathologist [facility] White Blood Cell Count 3.8(L) 4.0 - 11.0 Thou/uL 05/26/2025 12:03 PM T [facility] Platelet Count 336 150 - 450 Thou/uL 05/26/2025 12:03 PM EDT [facility] Hemoglobin 10.5(L) 13.0 - 17.7 g/dL 05/26/2025 12:03 PM EDT [facility] Hematocrit 33.3(L) 39.0 - 54.0 % 05/26/2025 12:03 PM T [facility] Red Blood Cell Count 3.65(L) 4.50 - 6.20 Mil/uL 05/26/2025 12:03 PM EDT [facility] MCV 91 80 - 100 fL 05/26/2025 12:03 PM EDT [facility] MCH 28.8 27.0 - 31.0 pg 05/26/2025 12:03 PM EDT [facility] MCHC 31.5 30.0 - 36.0 g/dL 05/26/2025 12:03 PM EDT [facility] RDW 15.4(H) 11.5 - 14.5 % 05/26/2025 12:03 PM EDT [facility] MPV 8.5 7.5 - 12.5 fL 05/26/2025 12:03 PM EDT [facility] Blood Blood specimen / Unknown 05/26/2025 11:23 AM EDT 05/26/2025 11:49 AM EDT Roselia Walters MD LAB BLOOD ORDERABLES Final Result Performing Organization Address City/[facility]/ZIP [place] [address], [place] [address] * Vancomycin Level, Random (05/26/2025 9:00 AM EDT) Vancomycin, Random 8 mg/L 05/26/2025 10:25 AM EDT [facility] Comment:No reference range e stablished for random levels. Time of Last Dose Information not given 05/26/2025 8:24 AM EDT [facility] Blood Blood specimen / Unknown 05/26/2025 9:00 AM EDT 05/26/2025 9:25 AM EDT Radha Gay MD LAB BLOOD ORDERABLES Final Result Performing Organization Address City/[facility]/Z[place] [address], [place] [address] * Phosphorus (05/25/2025 6:30 AM EDT) Phosphorus 3.0 2.7 - 4.5 mg/dL 05/25/2025 7:45 AM EDT [facility] Blood Blood specimen / Unknown 05/25/2025 6:30 AM EDT 05/25/2025 7:04 AM EDT us Radha Gay MD LAB BLOOD ORDERABLES Final Result Performing Organization Address City/[facility]/[place] [address], [place] [address] * Magnesium (05/25/2025 6:30 AM EDT) Magnesium 1.8 1.6 - 2.7 mg/dL 05/25/2025 7:45 AM EDT [facility] Blood Blood specimen / Unknown 05/25/2025 6:30 AM EDT 05/25/2025 7:04 AM EDT us Radha Gay MD LAB BLOOD ORDERABLES Final Result Performing Organization Address [facility]/[place] [address], [place] [address] * (ABNORMAL) Basic Metabolic Panel (05/25/2025 6:30 AM EDT) Glucose 84 65 - 99 mg/dL 05/25/2025 7:45 AM T [facility] Comment:Fasting: <100 mg/dL, Non-Fasting: <200 mg/dL (ADA 2005) Blood Urea Nitrogen (BUN) 4(L) 8 - 21 mg/dL 05/25/2025 7:45 AM EDT [facility] Creatinine 0.44(L) 0.50 - 1.30 mg/dL 05/25/2025 7:45 AM [facility] eGFR >90 >59 05/25/2025 7:45 AM [facility] Comment:CKD-EPI (2020) in mL /min/1.73 sq meters. Sodium 135(L) 136 - 145 mmol/L 05/25/2025 7:45 AM EDT [facility] Potassium 3.5 3.4 - 5.3 mmol/L 05/25/2025 7:45 AM [facility] Chloride 100 98 - 107 mmol/L 05/25/2025 7:45 AM [facility] CO2 22 22 - 33 mmol/L 05/25/2025 7:45 AM [facility] Anion Gap 13 7 - 17 05/25/2025 7:45 AM [facility] Calcium 8.3(L) 8.7 - 10.5 mg/dL 05/25/2025 7:45 AM [facility] BUN/Creatinine Ratio 9(L) 10.0 - 25.0 Ratio 05/25/2025 7:45 AM [facility] Blood Blood specimen / Unknown 05/25/2025 6:30 AM EDT 05/25/2025 7:04 AM EDT Radha Gay MD LAB BLOOD ORDERABLES [place] [address], [place] [address] * (ABNORMAL) Complete Blood Count WITHOUT Differential - STAT (05/25/2025 6:30 AM EDT) White Blood Cell Count 4.4 4.0 - 11.0 Thou/uL 05/25/2025 7:23 AM [facility] Platelet Count 271 150 - 450 Thou/uL 05/25/2025 7:23 AM [facility] Hemoglobin 9.1(L) 13.0 - 17.7 g/dL 05/25/2025 7:23 AM [facility] Hematocrit 28.2(L) 39.0 - 54.0 % 05/25/2025 7:23 AM [facility] Red Blood Cell Count 3.11(L) 4.50 - 6.20 Mil/uL 05/25/2025 7:23 AM [facility] MCV 91 80 - 100 fL 05/25/2025 7:23 AM [facility] MCH 29.3 27.0 - 31.0 pg 05/25/2025 7:23 AM [facility] MCHC 32.3 30.0 - 36.0 g/dL 05/25/2025 7:23 AM [facility] RDW 15.5(H) 11.5 - 14.5 % 05/25/2025 7:23 AM [facility] MPV 8.7 7.5 - 12.5 fL 05/25/2025 7:23 AM [facility] Blood Blood specimen / Unknown 05/25/2025 6:30 AM EDT 05/25/2025 7:04 AM EDT Radha Gay MD LAB BLOOD ORDERABLES [place] [address], [place] [address] * (ABNORMAL) Complete Blood Count WITHOUT Differential - Early AM (05/25/2025 6:00 AM EDT) White Blood Cell Count 4.4 4.0 - 11.0 Thou/uL 05/25/2025 6:39 AM [facility] Platelet Count 279 150 - 450 Thou/uL 05/25/2025 6:39 AM [facility] Hemoglobin 9.0(L) 13.0 - 17.7 g/dL 05/25/2025 6:39 AM [facility] Hematocrit 29.0(L) 39.0 - 54.0 % 05/25/2025 6:39 AM [facility] Red Blood Cell Count 3.17(L) 4.50 - 6.20 Mil/uL 05/25/2025 6:39 AM [facility] MCV 92 80 - 100 fL 05/25/2025 6:39 AM [facility] MCH 28.4 27.0 - 31.0 pg 05/25/2025 6:39 AM [facility] MCHC 31.0 30.0 - 36.0 g/dL 05/25/2025 6:39 AM [facility] RDW 15.7(H) 11.5 - 14.5 % 05/25/2025 6:39 AM [facility] MPV 9.2 7.5 - 12.5 fL 05/25/2025 6:39 AM EDT [facility] Blood Blood specimen / Unknown 05/25/2025 6:00 AM EDT 05/25/2025 6:20 AM EDT Radha Gay MD LAB BLOOD ORDERABLES Final Result Performing Organization Address [facility]/[place] [address], [address] [address] * Body Fluid Culture (includes Aerobic, Anaerobic and Gram Stain) (05/24/2025 4:41 PM EDT) Special Requests Limited quantity of fluid received, results may be impacted. 05/25/2025 10:29 AM EDT [facility] Gram stain suggestive of Few neutrophils Red blood cells No organisms seen 05/24/2025 5:34 PM EDT [facility] Culture No aerobes and anaerobes isolated after 7 days 05/31/2025 1:52 PM EST [facility] Fluid, Peritoneal (Abdominal Cavity) 05/24/2025 4:41 PM EDT 05/24/2025 4:53 PM EDT Comment:Fluid, Peritoneal Radha Gay MD MICROBIOLOGY - GENERAL ORD ERABLES Final Result Performing Organization Address City/[facility]/ZIP Co de Phone Number [facility] [address] [place] [address], [address] [address] * (ABNORMAL) Complete Blood Count, with Differential (05/24/2025 1:30 PM EDT) White Blood Cell Count 5.0 4.0 - 11.0 Thou/uL 05/24/2025 2:05 PM EDT [facility] Platelet Count 255 150 - 450 Thou/uL 05/24/2025 2:05 PM EDT [facility] Hemoglobin 9.8(L) 13.0 - 17.7 g/dL 05/24/2025 2:05 PM EDT [facility] Hematocrit 30.5(L) 39.0 - 54.0 % 05/24/2025 2:05 PM [facility] Red Blood Cell Count 3.36(L) 4.50 - 6.20 Mil/uL 05/24/2025 2:05 PM EDT [facility] MCV 91 80 - 100 fL 05/24/2025 2:[facility] M[facility] 29.2 27.0 - 31.0 pg 05/24/2025 2:05 [facility] MCHC 32.1 30.0 - 36.0 g/dL 05/24/2025 2:05 PM [facility] RDW 15.5(H) 11.5 - 14.5 % 05/24/2025 2:05 PM [facility] MPV 8.7 7.5 - 12.5 fL 05/24/2025 2:05 PM [facility] Neutrophils Auto 61.8 % 05/24/20 2:38 PM T [facility] Comment:Results verified by smear review. Immature Granulocytes 0.4 % 05/24/2025 2:38 PM [facility] Lymphocytes Auto 22.1 % 05/24/20 2:38 PM [facility] Monocytes Auto 15.5 % 05/24/2025 2:38 PM [facility] Eosinophils Auto 0.0 % 05/24/20 2:38 PM [facility] Basophils Auto 0.2 % 05/24/2025 2:38 PM [facility] Abs Neutrophils Auto 3.08 2.00 - 7.50 Thou/uL 05/24/2025 2:38 [facility] Immature Granulocytes 0.02 0.00 - 0.10 Thou/uL 05/24/2025 2:38 PM [facility] Abs Lymphocytes Auto 1.10(L) 1.50 - 4.50 Thou/uL 05/24/2025 2:38 PM EDT [facility] Abs Monocytes Auto 0.77 0.20 - 1.50 Thou/uL 05/24/2025 2:38 [facility] Abs Eosinophils Auto 0.00 0.00 - 0.70 Thou/uL 05/24/2025 2:38 [facility] Abs Basophils Auto 0.01 0.00 - 0.20 Thou/uL 05/24/2025 2:38 PM EDT [facility] Blood Blood specimen / Unknown 05/24/2025 1:30 PM EDT 05/24/2025 1:56 PM EDT Radha Gay MD LAB BLOOD ORDERABLES Final Result Performing Organization Address City/State/[place] Co de Phone Number [facility] [address] [place] [address], [facility] [address] [place] [address] * CT Abdomen+pelvis w/contrast (05/24/2025 12:33 PM [...] Prostatomegaly. This critical result was discussed with ROLL GRINDER OPERATOR by Dr. Demetra Crawford at 05/24/2025 3:20 PM EDT and it was ascertained that the content and urgency of the report was understood at the time of direct communication. Interpreted by: Munir Rawls MD Ethanol Maintenance Mechanic I personally reviewed the images and the [...] Prostatomegaly. This critical result was discussed with ROLL GRINDER OPERATOR by Dr. Demetra Crawford at 05/24/2025 3:20 PM EDT and it was ascertained that the content and urgency of the report was understood at the time of direct communication. Interpreted by: Munir Rawls MD Ethanol Maintenance Mechanic I personally reviewed the images and the resident's preliminary report and AGREE with the report as it is now presented ([id number]). Demetra Fernández ROLL GRINDER OPERATOR IMG CT ORDERABLES Final Result * Phosphorus (05/23/2025 5:15 AM EDT) Phosphorus 2.7 2.7 - 4.5 mg/dL 05/23/2025 5:57 AM EDT [facility] Blood Blood specimen / Unknown 05/23/2025 5:15 AM EDT 05/23/2025 5:30 AM EDT Radha Gay MD LAB BLOOD ORDERABLES Final Result Performing Organization Address City/[facility]/ZIP [place] [address], [address] [address] * Magnesium (05/23/2025 5:15 AM EDT) Magnesium 2.0 1.6 - 2.7 mg/dL 05/23/2025 5:57 AM EDT [facility] Blood Blood specimen / Unknown 05/23/2025 5:15 AM EDT 05/23/2025 5:30 AM EDT Radha Gay MD LAB BLOOD ORDERABLES Final Result Performing Organization Address City/[facility]/ZIP [place] [address], [place] [address] * (ABNORMAL) Basic Metabolic Panel (05/23/2025 5:15 AM EDT) Glucose 85 65 - 99 mg/dL 05/23/2025 5:57 AM [facility] Comment:Fasting: <100 mg/dL, Non-Fasting: <200 mg/dL (ADA 2004) Blood Urea Nitrogen (BUN) 9 8 - 21 mg/dL 05/23/2025 5:57 AM [facility] Creatinine 0.48(L) 0.50 - 1.30 mg/dL 05/23/2025 5:57 AM [facility] eGFR >90 >59 05/23/2025 5:57 AM [facility] Comment:CKD-EPI (2020) in mL /min/1.73 sq meters. Sodium 131(L) 136 - 145 mmol/L 05/23/2025 5:57 AM [facility] Potassium 4.1 3.4 - 5.3 mmol/L 05/23/2025 5:57 AM [facility] Chloride 98 98 - 107 mmol/L 05/23/2025 5:57 AM [facility] CO2 21(L) 22 - 33 mmol/L 05/23/2025 5:57 AM [facility] Anion Gap 12 7 - 17 05/23/2025 5:57 AM [facility] Calcium 8.2(L) 8.7 - 10.5 mg/dL 05/23/2025 5:57 AM [facility] BUN/Creatinine Ratio 19 10.0 - 25.0 Ratio 05/23/2025 5:57 AM [facility] Blood Blood specimen / Unknown 05/23/2025 5:15 AM EDT 05/23/2025 5:30 AM EDT us Radha Gay MD LAB BLOOD ORDERABLES [place] [address], [place] [address] * Heparin Assay (Anti-Xa) (05/23/2025 5:15 AM EDT) Anti Xa 0.37 IU/mL 05/23/2025 5:48 AM EDT [facility] Comment: (NOTE) Heparin Thromboembolic/Standard/Full Dose Protocol: [...] IV HEPARIN, UNFRACTIONATED 05/23/2025 12:23 AM EDT [facility] Blood Blood specimen / Unknown 05/23/2025 5:15 AM EDT 05/23/2025 5:30 AM EDT Radha Gay MD LAB BLOOD ORDERABLES [place] [address], [place] [address] * ECG 12 lead (05/22/2025 5:10 PM EDT) Ventricular rate 86 BPM EKG [facility] Atrial rate 86 [address]PM [address] [facility] P-R interval 158 ms EKG [facility] QRS duration 90 ms EKG [facility] Q-T interval 392 ms EKG [facility] QTC calculation (Bazett) 469 ms EKG [facility] P axis 37 degrees EKG [facility] R axis -46 degrees EKG [facility] T axis 30 degrees EKG [facility] 05/22/2025 5:10 PM EDT Narrative EKG [facility] - 05/23/2025 9:25 PM EDT Normal sinus [...] Greenberg Mohammed (35) on 05/23/2025 9:25:48 PM us Fabien Sullivan MD ECG ORDERABLES Final Result [facility] * ECG 12 lead (STAT) (05/22/2025 5:08 PM EDT) Pathologist [facility] Ventricular rate 0 BPM EKG [facility] Atrial rate 0 BPM EKG [facility] QRS duration 0 ms EKG [facility] Q-T interval 0 ms EKG [facility] QTC calculation (Bazett) 0 ms EKG [facility] P axis 0 degrees EKG [facility] R axis 0 degrees EKG [facility] T axis 0 degrees EKG [facility] 05/22/2025 5:08 PM EDT Narrative EKG [facility] - 05/22/2025 5:40 PM EDT No QRS [...] Gay MD ECG ORDERABLES Final Resu lt EKG [facility] * (ABNORMAL) Basic Metabolic Panel (05/22/2025 3:35 PM EDT) Pathologist [facility] Glucose 83 65 - 99 mg/dL 05/22/2025 4:18 PM EDT [facility] Comment:Fasting: <100 mg/dL, Non-Fasting: <200 mg/dL (ADA 2004) Blood Urea Nitrogen (BUN) 8 8 - 21 mg/dL 05/22/2025 4:18 PM EDT [facility] Creatinine 0.41(L) 0.50 - 1.30 mg/dL 05/22/2025 4:18 PM EDT [facility] eGFR >90 >59 05/22/2025 4:18 PM EDT [facility] Comment:CKD-EPI (2020) in mL /min/1.73 sq meters. Sodium 135(L) 136 - 145 mmol/L 05/22/2025 4:18 PM EDT [facility] Potassium 4.9 3.4 - 5.3 mmol/L 05/22/2025 4:18 PM EDT [facility] Chloride 102 98 - 107 mmol/L 05/22/2025 4:18 PM EDT [facility] CO2 22 22 - 33 mmol/L 05/22/2025 4:18 PM EDT [facility] Anion Gap 11 7 - 17 05/22/2025 4:18 PM EDT [facility] Calcium 8.0(L) 8.7 - 10.5 mg/dL 05/22/2025 4:18 PM EDT [facility] BUN/Creatinine Ratio 20 10.0 - 25.0 Ratio 05/22/2025 4:18 PM EDT [facility] Blood Blood specimen / Unknown 05/22/2025 3:35 PM EDT 05/22/2025 3:54 PM EDT us Radha Gay MD LAB BLOOD ORDERABLES [place] [address], [address] [address] * (ABNORMAL) Albumin (05/22/2025 7:00 AM EDT) Albumin 3.1(L) 3.4 - 4.8 g/dL 05/22/2025 7:38 AM EDT [facility] Blood Blood specimen / Unknown 05/22/2025 7:00 AM EDT 05/22/2025 7:09 AM EDT us Keanu Greer MD LAB BLOOD ORDERABLES [place] [address], [address] [address] * Phosphorus (05/22/2025 7:00 AM EDT) Phosphorus 2.9 2.7 - 4.5 mg/dL 05/22/2025 7:38 AM EDT [facility] Blood Blood specimen / Unknown 05/22/2025 7:00 AM EDT 05/22/2025 7:09 AM EDT us Keanu Greer MD LAB BLOOD ORDERABLES Final Resul t Performing Organization Address City/[facility]/ZIP Co de Phone Number [address] [address], [address] [address] * Magnesium (05/22/2025 7:00 AM EDT) Magnesium 1.9 1.6 - 2.7 mg/dL 05/22/2025 7:38 AM EDT [facility] Blood Blood specimen / Unknown 05/22/2025 7:00 AM EDT 05/22/2025 7:09 AM EDT us Keanu Greer MD LAB BLOOD ORDERABLES Final Resul t [address] [address], [address] [address] * (ABNORMAL) Basic Metabolic Panel (05/22/2025 7:00 AM EDT) Glucose 91 65 - 99 mg/dL 05/22/2025 7:38 AM [facility] Comment:Fasting: <100 mg/dL, Non-Fasting: <200 mg/dL (ADA 2004) Blood Urea Nitrogen (BUN) 6(L) 8 - 21 mg/dL 05/22/2025 7:38 AM [facility] Creatinine 0.38(L) 0.50 - 1.30 mg/dL 05/22/2025 7:38 AM [facility] eGFR >90 >59 05/22/2025 7:38 AM [facility] Comment:CKD-EPI (2020) in mL /min/1.73 sq meters. Sodium 134(L) 136 - 145 mmol/L 05/22/2025 7:38 AM [facility] Potassium 3.8 3.4 - 5.3 mmol/L 05/22/2025 7:38 AM [facility] Comment:Specimen hemolyzed. Results may be artifactually elevated. Chloride 100 98 - 107 mmol/L 05/22/2025 7:38 AM [facility] CO2 21(L) 22 - 33 mmol/L 05/22/2025 7:38 AM [facility] Anion Gap 13 7 - 17 05/22/2025 7:38 AM [facility] Calcium 8.0(L) 8.7 - 10.5 mg/dL 05/22/2025 7:38 AM [facility] BUN/Creatinine Ratio 16 10.0 - 25.0 Ratio 05/22/2025 7:38 AM [facility] Blood Blood specimen / Unknown 05/22/2025 7:00 AM EDT 05/22/2025 7:09 AM EDT us Keanu Greer MD LAB BLOOD ORDERABLES Final Resul t [address] [address], [address] [address] * (ABNORMAL) Phosphorus (05/22/2025 3:52 AM EDT) Phosphorus 2.1(L) 2.7 - 4.5 mg/dL 05/22/2025 5:37 AM EDT [facility] Blood Blood specimen / Unknown 05/22/2025 3:52 AM EDT 05/22/2025 4:59 AM EDT Radha Gay MD LAB BLOOD ORDERABLES Final Result Performing Organization Address City/[facility]/ZIP [place] [address], [place] [address] * (ABNORMAL) Magnesium (05/22/2025 3:52 AM EDT) Magnesium 1.5(L) 1.6 - 2.7 mg/dL 05/22/2025 5:37 AM EDT [facility] Blood Blood specimen / Unknown 05/22/2025 3:52 AM EDT 05/22/2025 4:59 AM EDT Radha Gay MD LAB BLOOD ORDERABLES Final Result Performing Organization Address City/[facility]/ZIP [place] [address], [address] [address] * (ABNORMAL) Basic Metabolic Panel (05/22/2025 3:52 AM EDT) Glucose 75 65 - 99 mg/dL 05/22/2025 5:37 AM EDT [facility] Comment:Fasting: <100 mg/dL, Non-Fasting: <200 mg/dL (ADA 2005) Blood Urea Nitrogen (BUN) 5(L) 8 - 21 mg/dL 05/22/2025 5:37 AM EDT [facility] Creatinine 0.35(L) 0.50 - 1.30 mg/dL 05/22/2025 5:37 AM EDT [facility] eGFR >90 >59 05/22/2025 5:37 AM EDT [facility] Comment:CKD-EPI (2020) in mL /min/1.73 sq meters. Sodium 139 136 - 145 mmol/L 05/22/2025 5:37 AM EDT [facility] Potassium 2.4(LL) 3.4 - 5.3 mmol/L 05/22/2025 5:37 AM EDT [facility] Chloride 106 98 - 107 mmol/L 05/22/2025 5:37 AM EDT [facility] CO2 16(L) 22 - 33 mmol/L 05/22/2025 5:37 AM EDT [facility] Anion Gap 17 7 - 17 05/22/2025 5:37 AM EDT [facility] Calcium 6.3(LL) 8.7 - 10.5 mg/dL 05/22/2025 5:37 AM T [facility] BUN/Creatinine Ratio 14 10.0 - 25.0 Ratio 05/22/2025 5:37 AM EDT [facility] Blood Blood specimen / Unknown 05/22/2025 3:52 AM EDT 05/22/2025 4:59 AM EDT us Radha Gay MD LAB BLOOD ORDERABLES Final Result Performing Organization Address City/[facility]/ZIP [place] [address], [place] [address] * Heparin Assay (Anti-Xa) (05/22/2025 3:52 AM EDT) Anti Xa 0.40 IU/mL 05/22/2025 5:33 AM EDT [facility] Anticoagulant IV HEPARIN, UNFRACTIONATED 05/22/2025 3:52 AM EDT [facility] Blood Blood specimen / Unknown 05/22/2025 3:52 AM EDT 05/22/2025 4:59 AM EDT us Radha Gay MD LAB BLOOD ORDERABLES [place] [address], [address] [place] [address] * XR Chest 1 view (05/21/2025 8:54 PM EDT) Anatomical Region Laterality Modality Chest Computed Radiogr aphy 05/21/2025 8:26 PM EDT Impressions 05/21/2025 9:40 PM EDT Mild bronchial wall thickening. Streaky left mid to lower lung opacities may reflect atelectasis and/or infectious/inflammatory process. Interpreted by: Pb Cummins MD [employer] Maintenance [employer]ic I personally reviewed the images and the [...] infectious/inflammatory process. Interpreted by: Pb Cummins MD [employer] Maintenance Mechanic I personally reviewed the images and the resident's preliminary report and AGREE with the report as it is now presented ([id number]). Radha Gay MD IMG DIAGNOSTIC IMAGING ORD ERABLES Final Result * Blood Culture (05/21/2025 8:36 PM EDT) Culture Sterile after 5 days 05/27/2025 7:41 AM EST [facility] Blood (Blood, Peripheral Venipuncture) 05/21/2025 8:36 PM EDT 05/21/2025 8:54 PM EDT Comment:Blood us Radha Gay MD LAB BLOOD ORDERABLES Final Result [facility] [address] [place] [address], [place] * (ABNORMAL) Urinalysis with Reflex to Microscopic (05/21/2025 8:32 PM EDT) Color Yellow 05/21/2025 8:55 PM EDT [facility] Clarity Cloudy 05/21/2025 8:55 PM EDT [facility] Specific [place] 1.020 1.005 - 1.030 05/21/2025 8:55 PM EDT [facility] pH 6.0 5.0 - 8.0 05/21/2025 8:55 PM EDT [facility] Leukocyte Esterase Negative Negative 05/21/2025 8:55 PM EDT [facility] Nitrite Negative Negative 05/21/2025 8:55 PM EDT [facility] Protein 30(A) NEG^Negative mg/dL 05/21/2025 8:55 PM EDT [facility] Glucose Negative Negative mg/dL 05/21/2025 8:55 PM EDT [facility] Ketones 80(A) NEG^Negative mg/dL 05/21/2025 8:55 PM EDT [facility] Blood Negative Negative 05/21/2025 8:55 PM EDT [facility] Bilirubin Negative Negative 05/21/2025 8:55 PM EDT [facility] RBC 2 0 - 4 per hpf 05/21/2025 8:55 PM EDT [facility] WBC 1 0 - 4 per hpf 05/21/2025 8:55 PM EDT [facility] Epithelial Cells 1 per hpf 05/21/2025 8:55 PM EDT [facility] Casts 1 0 - 4 per lpf 05/21/2025 8:55 [facility] Comment:Casts are hyaline un less otherwise noted. Urine Urine specimen / Unknown 05/21/2025 8:32 PM EDT 05/21/2025 8:39 PM EDT Radha Gay MD URINE ORDERABLES Final Res ult Performing Organization Address [facility]/ZIP Co de Phone Number [address] [address], [address] [address] * Blood Culture (05/21/2025 8:30 PM EDT) Culture Sterile after 5 days 05/27/2025 7:41 AM [facility] Blood (Blood, Peripheral Venipuncture) 05/21/2025 8:30 PM EDT 05/21/2025 8:54 PM EDT Comment:Blood Radha Gay MD LAB BLOOD ORDERABLES Final Result [facility] [address] [place] [address], [place] * (ABNORMAL) COMPLETE BLOOD COUNT, WITHOUT DIFFERENTIAL (05/21/2025 8:24 PM EDT) White Blood Cell Count 3.5(L) 4.0 - 11.0 Thou/uL 05/21/2025 9:13 PM EDT [facility] Platelet Count 230 150 - 450 Thou/uL 05/21/2025 9:13 PM EDT [facility] Hemoglobin 11.5(L) 13.0 - 17.7 g/dL 05/21/2025 9:13 PM [facility] Hematocrit 34.5(L) 39.0 - 54.0 % 05/21/2025 9:13 PM [facility] Red Blood Cell Count 3.96(L) 4.50 - 6.20 Mil/uL 05/21/2025 9:13 PM EDT [facility] MCV 87 80 - 100 fL 05/21/2025 9:13 PM EDT [facility] MCH 29.0 27.0 - 31.0 pg 05/21/2025 9:13 PM EDT [facility] MCHC 33.3 30.0 - 36.0 g/dL 05/21/2025 9:13 PM EDT [facility] RDW 14.6(H) 11.5 - 14.5 % 05/21/2025 9:13 PM EDT [facility] MPV 8.7 7.5 - 12.5 fL 05/21/2025 9:13 PM EDT [facility] Blood Blood specimen / Unknown 05/21/2025 8:24 PM EDT 05/21/2025 8:58 PM EDT us Radha Gay MD LAB BLOOD ORDERABLES Final Result Performing Organization Address City/[facility]/[place] [address], [place] [address] * (ABNORMAL) Phosphorus (05/21/2025 4:45 PM EDT) Phosphorus 2.2(L) 2.7 - 4.5 mg/dL 05/21/2025 5:49 PM EDT [facility] Blood Blood specimen / Unknown 05/21/2025 4:45 PM EDT 05/21/2025 5:17 PM EDT us Radha Gay MD LAB BLOOD ORDERAB[place] [address], [place] [address] * Magnesium (05/21/2025 4:45 PM EDT) Magnesium 2.1 1.6 - 2.7 mg/dL 05/21/2025 5:49 PM EDT [facility] Blood Blood specimen / Unknown 05/21/2025 4:45 PM EDT 05/21/2025 5:17 PM EDT us Radha Gay MD LAB BLOOD ORDERABLES Final Result Performing Organization Address City/[facility]/ZIP Co de Phone Number [address] [address], [address] [address] * (ABNORMAL) Basic Metabolic Panel (Routine) (05/21/2025 4:45 PM EDT) Glucose 107(H) 65 - 99 mg/dL 05/21/2025 5:49 PM EDT [facility] Comment:Fasting: <100 mg/dL, Non-Fasting: <200 mg/dL (ADA 2004) Blood Urea Nitrogen (BUN) 7(L) 8 - 21 mg/dL 05/21/2025 5:49 PM EDT [facility] Creatinine 0.39(L) 0.50 - 1.30 mg/dL 05/21/2025 5:49 PM EDT [facility] eGFR >90 >59 05/21/2025 5:49 PM T [facility] Comment:CKD-EPI (2020) in mL /min/1.73 sq meters. Sodium 132(L) 136 - 145 mmol/L 05/21/2025 5:49 PM [facility] Potassium 3.7 3.4 - 5.3 mmol/L 05/21/2025 5:49 PM EDT [facility] Chloride 96(L) 98 - 107 mmol/L 05/21/2025 5:49 PM [facility] CO2 20(L) 22 - 33 mmol/L 05/21/2025 5:49 PM [facility] Anion Gap 16 7 - 17 05/21/2025 5:49 PM [facility] Calcium 8.4(L) 8.7 - 10.5 mg/dL 05/21/2025 5:49 PM [facility] BUN/Creatinine Ratio 18 10.0 - 25.0 Ratio 05/21/2025 5:49 PM [facility] Blood Blood specimen / Unknown 05/21/2025 4:45 PM EDT 05/21/2025 5:17 PM EDT Radha Gay MD LAB BLOOD ORDERABLES Final Result Performing Organization Address City/State/[place] [address], [place] [address] * Heparin Assay (Anti Xa) (05/21/2025 5:30 AM EDT) Anti Xa 0.41 IU/mL 05/21/2025 6:08 AM EDT [facility] Comment: (NOTE) Heparin Thromboembolic/Standard/Full Dose Protocol: [...] IV HEPARIN, UNFRACTIONATED 05/21/2025 4:41 AM EDT [facility] Blood Blood specimen / Unknown 05/21/2025 5:30 AM EDT 05/21/2025 5:44 AM EDT us Radha Gay MD LAB BLOOD ORDERABLES Final Result Performing Organization Address [facility]/[place] [address], [place] [address] * (ABNORMAL) Phosphorus (05/21/2025 5:30 AM EDT) Phosphorus 2.0(L) 2.7 - 4.5 mg/dL 05/21/2025 6:07 AM EDT [facility] Blood Blood specimen / Unknown 05/21/2025 5:30 AM EDT 05/21/2025 5:44 AM EDT us Radha Gay MD LAB BLOOD ORDERABLES [place] [address], [place] [address] * Magnesium (Early AM) (05/21/2025 5:30 AM EDT) Magnesium 1.7 1.6 - 2.7 mg/dL 05/21/2025 6:07 AM T [facility] Blood Blood specimen / Unknown 05/21/2025 5:30 AM EDT 05/21/2025 5:44 AM EDT us Radha Gay MD LAB BLOOD ORDERABLES [place] [address], [place] [address] * (ABNORMAL) Basic Metabolic Panel (05/21/2025 5:30 AM EDT) Glucose 86 65 - 99 mg/dL 05/21/2025 6:07 AM [facility] Comment:Fasting: <100 mg/dL, Non-Fasting: <200 mg/dL (ADA 2005) Blood Urea Nitrogen (BUN) 5(L) 8 - 21 mg/dL 05/21/2025 6:07 AM [facility] Creatinine 0.37(L) 0.50 - 1.30 mg/dL 05/21/2025 6:07 AM [facility] eGFR >90 >59 05/21/2025 6:07 AM [facility] Comment:CKD-EPI (2020) in mL /min/1.73 sq meters. Sodium 134(L) 136 - 145 mmol/L 05/21/2025 6:07 AM [facility] Potassium 3.1(L) 3.4 - 5.3 mmol/L 05/21/2025 6:07 AM [facility] Chloride 97(L) 98 - 107 mmol/L 05/21/2025 6:07 AM [facility] CO2 19(L) 22 - 33 mmol/L 05/21/2025 6:07 AM [facility] Anion Gap 18(H) 7 - 17 05/21/2025 6:07 AM EDT [facility] Calcium 8.6(L) 8.7 - 10.5 mg/dL 05/21/2025 6:07 AM EDT [facility] BUN/Creatinine Ratio 14 10.0 - 25.0 Ratio 05/21/2025 6:07 AM EDT [facility] Blood Blood specimen / Unknown 05/21/2025 5:30 AM EDT 05/21/2025 5:44 AM EDT Radha Gay MD LAB BLOOD ORDERABLES [place] [address], [place] [address] * Heparin Assay (Anti Xa) (05/20/2025 11:30 PM EDT) Anti Xa 0.53 IU/mL 05/21/2025 12:15 AM EDT [facility] Comment: (NOTE) Heparin Thromboembolic/Standard/Full Dose Protocol: [...] IV HEPARIN, UNFRACTIONATED 05/20/2025 11:02 PM EDT [facility] Blood Blood specimen / Unknown 05/20/2025 11:30 PM EDT 05/20/2025 11:51 PM EDT Radha Gay MD LAB BLOOD ORDERABLES Final Result Performing Organization Address City/[facility]/Z[place] [address], [place] [address] * Heparin Assay (Anti Xa) (05/20/2025 5:44 PM EDT) Anti Xa 0.67 IU/mL 05/20/2025 6:36 PM EDT [facility] Comment: (NOTE) Heparin Thromboembolic/Standard/Full Dose Protocol: [...] IV HEPARIN, UNFRACTIONATED 05/20/2025 5:45 PM EDT [facility] Blood Blood specimen / Unknown 05/20/2025 5:44 PM EDT 05/20/2025 6:23 PM EDT Radha Gay MD LAB BLOOD ORDERABLES [place] [address], [place] [address] * Heparin Assay (Anti-Xa) (05/20/2025 10:48 AM EDT) Anti Xa 0.38 IU/mL 05/20/2025 11:46 AM EDT [facility] Comment: (NOTE) Heparin Thromboembolic/Standard/Full Dose Protocol: [...] Information not given 05/20/2025 11:08 AM EDT [facility] 05/20/2025 10:4 8 AM EDT 05/20/2025 11:00 AM EDT Radha Gay MD LAB BLOOD ORDERABLES Final Result Performing Organization Address City/[facility]/[place] [address], [place] [address] * Partial Thromboplastin Time (PTT) (05/20/2025 10:48 AM EDT) Anticoagulant OTHER AGENT OR UNKNOWN 05/20/2025 10:31 AM EDT [facility] Partial Thromboplastin Time (PTT) 31 25 - 36 seconds 05/20/2025 11:46 AM EDT [facility] Blood Blood specimen / Unknown 05/20/2025 10:48 AM EDT 05/20/2025 11:00 AM EDT Radha Gay MD LAB BLOOD ORDERABLES Final Result Performing Organization Address City/[facility]/[place] [address], [address] [address] * (ABNORMAL) Protime-INR (Routine) (05/20/2025 10:48 AM EDT) Anticoagulant OTHER AGENT OR UNKNOWN 05/20/2025 10:31 AM EDT [facility] Prothrombin Time (PT) 16.3(H) 10.0 - 13.5 seconds 05/20/2025 11:46 AM EDT [facility] INR 1.4 05/20/2025 11:46 AM EDT [facility] Comment:INR Therapeutic Rang es: Standard dose anticoagulant 2.0 to 3.0, High dose anticoagulant 2.5-3.5. Blood Blood specimen / Unknown 05/20/2025 10:48 AM EDT 05/20/2025 11:00 AM EDT us Radha Gay MD LAB BLOOD ORDERABLES Final Result Performing Organization Address [facility]/ZIP Co de Phone Number [address] [address], [address] [address] * (ABNORMAL) Phosphorus (05/20/2025 6:10 AM EDT) Phosphorus 1.7(L) 2.7 - 4.5 mg/dL 05/20/2025 7:37 AM EDT [facility] Blood Blood specimen / Unknown 05/20/2025 6:10 AM EDT 05/20/2025 6:56 AM EDT us Radha Gay MD LAB BLOOD ORDERABLES Final Result Performing Organization Address [facility]/[place] [address], [address] [address] * Magnesium (05/20/2025 6:10 AM EDT) Magnesium 1.6 1.6 - 2.7 mg/dL 05/20/2025 7:37 AM EDT [facility] Blood Blood specimen / Unknown 05/20/2025 6:10 AM EDT 05/20/2025 6:56 AM EDT us Radha Gay MD LAB BLOOD ORDERABLES Final Result Performing Organization Address City/[facility]/[place] Co de Phone Number [address] [address], [address] [address] * (ABNORMAL) COMPLETE BLOOD COUNT, WITHOUT DIFFERENTIAL (05/20/2025 6:10 AM EDT) White Blood Cell Count 2.3(L) 4.0 - 11.0 Thou/uL 05/20/2025 7:18 AM [facility] Platelet Count 194 150 - 450 Thou/uL 05/20/2025 7:18 AM [facility] Hemoglobin 10.0(L) 13.0 - 17.7 g/dL 05/20/2025 7:18 AM [facility] Hematocrit 30.3(L) 39.0 - 54.0 % 05/20/2025 7:18 AM [facility] Red Blood Cell Count 3.44(L) 4.50 - 6.20 Mil/uL 05/20/2025 7:18 AM [facility] MCV 88 80 - 100 fL 05/20/2025 7:18 AM [facility] MCH 29.1 27.0 - 31.0 pg 05/20/2025 7:18 AM [facility] MCHC 33.0 30.0 - 36.0 g/dL 05/20/2025 7:18 AM [facility] RDW 14.1 11.5 - 14.5 % 05/20/2025 7:18 AM [facility] MPV 9.0 7.5 - 12.5 fL 05/20/2025 7:18 AM [facility] Blood Blood specimen / Unknown 05/20/2025 6:10 AM EDT 05/20/2025 6:56 AM EDT Radha Gay MD LAB BLOOD ORDERABLES [place] [address], [place] [address] * (ABNORMAL) Basic Metabolic Panel (05/20/2025 6:10 AM EDT) Pathologist [facility] Glucose 78 65 - 99 mg/dL 05/20/2025 7:37 AM [facility] Comment:Fasting: <100 mg/dL, Non-Fasting: <200 mg/dL (ADA 2005) Blood Urea Nitrogen (BUN) 6(L) 8 - 21 mg/dL 05/20/2025 7:37 AM [facility] Creatinine 0.33(L) 0.50 - 1.30 mg/dL 05/20/2025 7:37 AM EDT [facility] eGFR >90 >59 05/20/2025 7:37 AM EDT [facility] Comment:CKD-EPI (2020) in mL /min/1.73 sq meters. Sodium 136 136 - 145 mmol/L 05/20/2025 7:37 AM EDT [facility] Potassium 3.5 3.4 - 5.3 mmol/L 05/20/2025 7:37 AM EDT [facility] Chloride 101 98 - 107 mmol/L 05/20/2025 7:37 AM EDT [facility] CO2 21(L) 22 - 33 mmol/L 05/20/2025 7:37 AM EDT [facility] Anion Gap 14 7 - 17 05/20/2025 7:37 AM T [facility] Calcium 8.3(L) 8.7 - 10.5 mg/dL 05/20/2025 7:37 AM EDT [facility] BUN/Creatinine Ratio 18 10.0 - 25.0 Ratio 05/20/2025 7:37 AM EDT [facility] Blood Blood specimen / Unknown 05/20/2025 6:10 AM EDT 05/20/2025 6:56 AM EDT us Radha Gay MD LAB BLOOD ORDERABLES [place] [address], [place] [address] * Phosphorus (05/19/2025 4:21 PM EDT) Phosphorus 3.4 2.7 - 4.5 mg/dL 05/19/2025 5:14 PM EDT [facility] Blood Blood specimen / Unknown 05/19/2025 4:21 PM EDT 05/19/2025 4:51 PM EDT us Radha Gay MD LAB BLOOD ORDERABLES Final Result Performing Organization Address City/[facility]/ZIP [place] [address], [place] [address] * Magnesium (05/19/2025 4:21 PM EDT) Magnesium 1.7 1.6 - 2.7 mg/dL 05/19/2025 5:14 PM EDT [facility] Blood Blood specimen / Unknown 05/19/2025 4:21 PM EDT 05/19/2025 4:51 PM EDT Radha Gay MD LAB BLOOD ORDERABLES [place] [address], [place] [address] * (ABNORMAL) Basic Metabolic Panel (05/19/2025 4:21 PM EDT) Glucose 136(H) 65 - 99 mg/dL 05/19/2025 5:14 PM T [facility] Comment:Fasting: <100 mg/dL, Non-Fasting: <200 mg/dL (ADA 2004) Blood Urea Nitrogen (BUN) 9 8 - 21 mg/dL 05/19/2025 5:14 PM [facility] Creatinine 0.41(L) 0.50 - 1.30 mg/dL 05/19/2025 5:14 PM [facility] eGFR >90 >59 05/19/2025 5:14 PM [facility] Comment:CKD-EPI (2020) in mL /min/1.73 sq meters. Sodium 139 136 - 145 mmol/L 05/19/2025 5:14 PM [facility] Potassium 4.0 3.4 - 5.3 mmol/L 05/19/2025 5:14 PM [facility] Chloride 102 98 - 107 mmol/L 05/19/2025 5:14 PM [facility] CO2 20(L) 22 - 33 mmol/L 05/19/2025 5:14 PM [facility] Anion Gap 17 7 - 17 05/19/2025 5:14 PM [facility] Calcium 8.3(L) 8.7 - 10.5 mg/dL 05/19/2025 5:14 PM EDT [facility] BUN/Creatinine Ratio 22 10.0 - 25.0 Ratio 05/19/2025 5:14 PM EDT [facility] Blood Blood specimen / Unknown 05/19/2025 4:21 PM EDT 05/19/2025 4:51 PM EDT Radha Gay MD LAB BLOOD ORDERABLES Final Result [address] [address], [address] [address] * Heparin Assay (Anti Xa) (05/19/2025 3:42 PM EDT) Pathologist [facility] Anti Xa 0.84 IU/mL 05/19/2025 4:37 PM EDT [facility] Comment: (NOTE) Heparin Thromboembolic/Standard/Full Dose Protocol: [...] NATED, BEING HELD 05/19/2025 3:43 PM EDT [facility] Blood Blood specimen / Unknown 05/19/2025 3:42 PM EDT 05/19/2025 4:13 PM EDT us Radha Gay MD LAB BLOOD ORDERABLES Final Result [address] [address], [address] [address] * (ABNORMAL) POTASSIUM - Post op (05/19/2025 11:13 AM EDT) Potassium 3.1(L) 3.4 - 5.3 mmol/L 05/19/2025 11:46 AM EDT [facility] Blood Blood specimen / Unknown 05/19/2025 11:13 AM EDT 05/19/2025 11:25 AM EDT Zena Lopez [facility] LAB BLOOD ORDERABLES [place] [address], [place] [address] * POCT Glucose, Fingerstick (05/19/2025 11:04 AM EDT) Pathologist [facility] POC Glucose 99 65 - 99 mg/dL 05/19/2025 11:05 AM EDT Blood specimen / Unknown 05/19/2025 11:04 AM EDT 05/19/2025 11:05 AM EDT Fabien Sullivan MD POINT OF CARE TEST ORDERABLES Fi nal Result HOSPITAL LAB See Below * Heparin Assay (Anti-Xa) (05/19/2025 5:37 AM EDT) Pathologist [facility] Anti Xa 1.48 IU/mL 05/19/2025 6:31 AM EDT [facility] Comment: (NOTE) Heparin Thromboembolic/Standard/Full Dose Protocol: [...] NATED, BEING HELD 05/19/2025 1:02 AM EDT [facility] Blood Blood specimen / Unknown 05/19/2025 5:37 AM EDT 05/19/2025 6:10 AM EDT Felipe Limon MD LAB BLOOD ORDERABLES Final Result Performing Organization Address [facility]/ZIP Co de Phone Number [address] [address], [address] [address] * (ABNORMAL) Phosphorus (05/19/2025 5:37 AM EDT) Phosphorus 2.2(L) 2.7 - 4.5 mg/dL 05/19/2025 6:54 AM EDT [facility] Blood Blood specimen / Unknown 05/19/2025 5:37 AM EDT 05/19/2025 6:10 AM EDT Radha Gay MD LAB BLOOD ORDERABLES Final Result Performing Organization Address [facility] Co de Phone Number [address] [address], [address] [address] * Magnesium (05/19/2025 5:37 AM EDT) Magnesium 1.7 1.6 - 2.7 mg/dL 05/19/2025 6:54 AM EDT [facility] Blood Blood specimen / Unknown 05/19/2025 5:37 AM EDT 05/19/2025 6:10 AM EDT Radha Gay MD LAB BLOOD ORDERABLES Final Result Performing Organization Address City/[facility] Co de Phone Number [address] [address], [address] [address] * (ABNORMAL) COMPLETE BLOOD COUNT, WITHOUT DIFFERENTIAL (05/19/2025 5:37 AM EDT) White Blood Cell Count 1.6(LL) 4.0 - 11.0 Thou/uL 05/19/2025 8:03 AM [facility] Comment:Results verified by smear review. Platelet Count 163 150 - 450 Thou/uL 05/19/2025 8:03 AM [facility] Hemoglobin 10.2(L) 13.0 - 17.7 g/dL 05/19/2025 8:03 AM [facility] Hematocrit 30.6(L) 39.0 - 54.0 % 05/19/2025 8:03 AM [facility] Red Blood Cell Count 3.45(L) 4.50 - 6.20 Mil/uL 05/19/2025 8:03 AM [facility] MCV 89 80 - 100 fL 05/19/2025 8:03 AM [facility] MCH 29.6 27.0 - 31.0 pg 05/19/2025 8:03 AM [facility] MCHC 33.3 30.0 - 36.0 g/dL 05/19/2025 8:03 AM [facility] RDW 14.0 11.5 - 14.5 % 05/19/2025 8:03 AM [facility] MPV 8.8 7.5 - 12.5 fL 05/19/2025 8:03 AM [facility] Blood Blood specimen / Unknown 05/19/2025 5:37 AM EDT 05/19/2025 6:10 AM EDT Radha Gay MD LAB BLOOD ORDERABLES [place] [address], [place] [address] * (ABNORMAL) Basic Metabolic Panel (05/19/2025 5:37 AM EDT) Pathologist [facility] Glucose 89 65 - 99 mg/dL 05/19/2025 6:54 AM [facility] Comment:Fasting: <100 mg/dL, Non-Fasting: <200 mg/dL (ADA 2005) Blood Urea Nitrogen (BUN) 11 8 - 21 mg/dL 05/19/2025 6:54 AM [facility] Creatinine 0.45(L) 0.50 - 1.30 mg/dL 05/19/2025 6:54 AM [facility] eGFR >90 >59 05/19/2025 6:54 AM [facility] Comment:CKD-EPI (2020) in mL /min/1.73 sq meters. Sodium 139 136 - 145 mmol/L 05/19/2025 6:54 AM [facility] Potassium 2.9(L) 3.4 - 5.3 mmol/L 05/19/2025 6:54 AM [facility] Chloride 102 98 - 107 mmol/L 05/19/2025 6:54 AM [facility] CO2 22 22 - 33 mmol/L 05/19/2025 6:54 AM [facility] Anion Gap 15 7 - 17 05/19/2025 6:54 AM [facility] Calcium 8.2(L) 8.7 - 10.5 mg/dL 05/19/2025 6:54 AM [facility] BUN/Creatinine Ratio 24 10.0 - 25.0 Ratio 05/19/2025 6:54 AM [facility] Blood Blood specimen / Unknown 05/19/2025 5:37 AM EDT 05/19/2025 6:10 AM EDT Radha Gay MD LAB BLOOD ORDERABLES [place] [address], [place] [address] * (ABNORMAL) Heparin Assay (Anti-Xa) (05/19/2025 12:02 AM EDT) Anti Xa >2.00(HH) IU/mL 05/19/2025 12:43 AM [facility] Comment: (NOTE) Heparin Thromboembolic/Standard/Full Dose Protocol: [...] NATED, BEING HELD 05/19/2025 12:02 AM EDT [facility] Blood Blood specimen / Unknown 05/19/2025 12:02 AM EDT 05/19/2025 12:20 AM EDT us Felipe Limon MD LAB BLOOD ORDERABLES Final Result Performing Organization Address City/[facility]/ZIP [place] [address], [place] [address] * (ABNORMAL) Heparin Assay (Anti Xa) (05/18/2025 5:45 PM EDT) Anti Xa >2.00(HH) IU/mL 05/18/2025 6:40 PM EDT [facility] Comment: (NOTE) Heparin Thromboembolic/Standard/Full Dose Protocol: [...] Anticoagulant APIXABAN (ELIQUIS) 05/18/2025 5:45 PM EDT [facility] Blood Blood specimen / Unknown 05/18/2025 5:45 PM EDT 05/18/2025 6:06 PM EDT us Felipe Limon MD LAB BLOOD ORDERABLES Final Result [address] [address], [address] [address] * Prepare RBC's:Prepare in: Units; Number of Units: 1; Transfusion Indications: Hemoglobin less than 7 gm/dl or HCT less than 21% (05/18/2025 3:24 PM EDT) Units Ordered 1 05/18/2025 3:24 PM EDT [facility] 05/18/2025 3:24 PM EDT 05/18/2025 3:34 PM EDT us Felipe Limon MD BLOOD BANK PRODUCT ORDERABL ES Final Result Performing Organization Address [facility]/[place] Co de Phone Number [address] [address], [address] [address] * XR Abdomen 1 view-Portable (05/18/2025 10:00 [...] represent ileus or partial small bowel obstruction. Glenna Bennett PA-C [facility] ORDER DEANDRA Final Result * (ABNORMAL) Yes, Order Baseline Heparin Assay (Anti-Xa) (05/18/2025 9:04 AM EDT) Anti Xa >2.00(HH) IU/mL 05/18/2025 11:07 AM EDT [facility] Comment: (NOTE) Heparin Thromboembolic/Standard/Full Dose Protocol: [...] Anticoagulant APIXABAN (ELIQUIS) 05/18/2025 8:46 AM EDT [facility] Blood Blood specimen / Unknown 05/18/2025 9:04 AM EDT 05/18/2025 10:29 AM EDT Felipe Limon MD LAB BLOOD ORDERABLES Final Result [address] [address], [address] [address] * (ABNORMAL) Partial Thromboplastin Time (PTT) (05/18/2025 9:04 AM EDT) Anticoagulant IV HEPARIN, UNFRACTIONATED 05/18/2025 8:46 AM EDT [facility] Partial Thromboplastin Time (PTT) 37(H) 25 - 36 seconds 05/18/2025 11:07 AM EDT [facility] Blood Blood specimen / Unknown 05/18/2025 9:04 AM EDT 05/18/2025 10:29 AM EDT Felipe Limon MD LAB BLOOD ORDERABLES [place] [address], [place] [address] * (ABNORMAL) Protime-INR (05/18/2025 9:04 AM EDT) Anticoagulant IV HEPARIN, UNFRACTIONATED 05/18/2025 8:46 AM EDT [facility] Prothrombin Time (PT) 25.7(H) 10.0 - 13.5 seconds 05/18/2025 11:07 AM EDT [facility] INR 2.2 05/18/2025 11:07 AM T [facility] Comment:INR Therapeutic Rang es: Standard dose anticoagulant 2.0 to 3.0, High dose anticoagulant 2.5-3.5. Blood Blood specimen / Unknown 05/18/2025 9:04 AM EDT 05/18/2025 10:29 AM EDT Felipe Limon MD LAB BLOOD ORDERABLES [place] [address], [address] [address] * (ABNORMAL) Complete Blood Count WITHOUT Differential (05/18/2025 9:04 AM EDT) Pathologist [facility] White Blood Cell Count 2.1(L) 4.0 - 11.0 Thou/uL 05/18/2025 10:38 AM [facility] Platelet Count 174 150 - 450 Thou/uL 05/18/2025 10:38 AM [facility] Hemoglobin 11.1(L) 13.0 - 17.7 g/dL 05/18/2025 10:38 AM [facility] Hematocrit 33.7(L) 39.0 - 54.0 % 05/18/2025 10:38 AM [facility] Red Blood Cell Count 3.78(L) 4.50 - 6.20 Mil/uL 05/18/2025 10:38 AM [facility] MCV 89 80 - 100 fL 05/18/2025 10:38 AM [facility] MCH 29.4 27.0 - 31.0 pg 05/18/2025 10:38 AM [facility] MCHC 32.9 30.0 - 36.0 g/dL 05/18/2025 10:38 AM [facility] RDW 13.9 11.5 - 14.5 % 05/18/2025 10:38 AM [facility] MPV 8.9 7.5 - 12.5 fL 05/18/2025 10:38 AM [facility] Blood Blood specimen / Unknown 05/18/2025 9:04 AM EDT 05/18/2025 10:29 AM EDT Felipe Limon MD LAB BLOOD ORDERABLES Final Result Performing Organization Address City/State/[place] [address], [place] [address] * (ABNORMAL) Protime-INR (05/17/2025 10:45 PM EDT) Anticoagulant NO ANTI COAGULANT MEDS [facility]2025 [facility] Prothrombin Time (PT) 25.0(H) 10.0 - 13.5 seconds 05/17/2025 11:20 PM [facility] INR 2.2 05/17/2025 11:20 PM [facility] Comment:INR Therapeutic Rang es: Standard dose anticoagulant 2.0 to 3.0, High dose anticoagulant 2.5-3.5. Blood Blood specimen / Unknown 05/17/2025 10:45 PM EDT 05/17/2025 11:03 PM EDT us Fabien Sullivan MD LAB BLOOD ORDERABLES Final Resul t Performing Organization Address City/[facility]/ZIP Co de Phone Number [address] [address], [address] [address] * Hepatic Function Panel (05/17/2025 10:45 PM EDT) Alkaline Phosphatase 85 45 - 128 U/L 05/17/2025 11:25 PM EDT [facility] Aspartate Aminotrans (AST) 21 10 - 55 U/L 05/17/2025 11:25 PM EDT [facility] Alanine Aminotrans (ALT) 10 10 - 55 U/L 05/17/2025 11:25 PM EDT [facility] Bilirubin, Total 1.0 0.2 - 1.0 mg/dL 05/17/2025 11:25 PM EDT [facility] Protein, Total 6.9 6.3 - 8.3 g/dL 05/17/2025 11:25 PM EDT [facility] Albumin 3.8 3.4 - 4.8 g/dL 05/17/2025 11:25 PM EDT [facility] Bilirubin, Direct 0.2 0 - 0.2 mg/dL 05/17/2025 11:25 PM EDT [facility] Globulin 3.1 1.5 - 3.9 g/dL 05/17/2025 11:25 PM EDT [facility] Albumin/Globulin Ratio 1.2 1.0 - 3.0 Ratio 05/17/2025 11:25 PM EDT [facility] Blood Blood specimen / Unknown 05/17/2025 10:45 PM EDT 05/17/2025 11:03 PM EDT us Fabien Sullivan MD LAB BLOOD ORDERABLES Final Resul t [address] [address], [place] [address] * Phosphorus (STAT) (05/17/2025 10:45 PM EDT) Phosphorus 2.7 2.7 - 4.5 mg/dL 05/17/2025 11:25 PM EDT [facility] Blood Blood specimen / Unknown 05/17/2025 10:45 PM EDT 05/17/2025 11:03 PM EDT us Fabien Sullivan MD LAB BLOOD ORDERABLES [place] [address], [place] [address] * Magnesium (05/17/2025 10:45 PM EDT) Magnesium 1.9 1.6 - 2.7 mg/dL 05/17/2025 11:25 PM EDT [facility] Blood Blood specimen / Unknown 05/17/2025 10:45 PM EDT 05/17/2025 11:03 PM EDT us Fabien Sullivan MD LAB BLOOD ORDERABLES [place] [address], [place] [address] * (ABNORMAL) Basic Metabolic Panel (05/17/2025 10:45 PM EDT) Glucose 106(H) 65 - 99 mg/dL 05/17/2025 11:25 PM EDT [facility] Comment:Fasting: <100 mg/dL, Non-Fasting: <200 mg/dL (ADA 2005) Blood Urea Nitrogen (BUN) 12 8 - 21 mg/dL 05/17/2025 11:25 PM EDT [facility] Creatinine 0.52 0.50 - 1.30 mg/dL 05/17/2025 11:25 PM EDT [facility] eGFR >90 >59 05/17/2025 11:25 PM EDT [facility] Comment:CKD-EPI (2020) in mL /min/1.73 sq meters. Sodium 132(L) 136 - 145 mmol/L 05/17/2025 11:25 PM EDT [facility] Potassium 3.5 3.4 - 5.3 mmol/L 05/17/2025 11:25 PM EDT [facility] Chloride 95(L) 98 - 107 mmol/L 05/17/2025 11:25 PM EDT [facility] CO2 24 22 - 33 mmol/L 05/17/2025 11:25 PM EDT [facility] Anion Gap 13 7 - 17 05/17/2025 11:25 PM EDT [facility] Calcium 9.0 8.7 - 10.5 mg/dL 05/17/2025 11:25 PM EDT [facility] BUN/Creatinine Ratio 23 10.0 - 25.0 Ratio 05/17/2025 11:25 PM EDT [facility] Blood Blood specimen / Unknown 05/17/2025 10:45 PM EDT 05/17/2025 11:03 PM EDT us Fabien Sullivan MD LAB BLOOD ORDERABLES [place] [address], [place] [address] * (ABNORMAL) Complete Blood Count, with Differential (05/17/2025 10:45 PM EDT) White Blood Cell Count 2.2(L) 4.0 - 11.0 Thou/uL 05/17/2025 11:16 PM EDT [facility] Platelet Count 173 150 - 450 Thou/uL 05/17/2025 11:16 PM EDT [facility] Hemoglobin 11.3(L) 13.0 - 17.7 g/dL 05/17/2025 11:16 PM EDT [facility] Hematocrit 33.8(L) 39.0 - 54.0 % 05/17/2025 11:16 PM EDT [facility] Red Blood Cell Count 3.87(L) 4.50 - 6.20 Mil/uL 05/17/2025 11:16 PM [facility] MCV 87 80 - 100 fL 05/17/2025 11:16 PM [facility] MCH 29.2 27.0 - 31.0 pg 05/17/2025 11:16 PM [facility] MCHC 33.4 30.0 - 36.0 g/dL 05/17/2025 11:16 PM [facility] RDW 13.7 11.5 - 14.5 % 05/17/2025 11:16 PM [facility] MPV 9.1 7.5 - 12.5 fL 05/17/2025 11:16 PM [facility] Bands Man 2 % 05/18/2025 12:21 AM [facility] Neutrophils Man 33 % 12:21 AM [facility] Comment:Dohle Bodies present Lymphocytes Man 57 % 12:21 AM [facility] Comment:Occasional reactive lymphocyte present. Monocytes Man 7 % 05/18/2025 12:21 AM [facility] Eosinophils Man 1 % 12:21 AM [facility] Abs Neutrophils Count (ANC) 0.8(L) 2.0 - 7.5 Thou/uL 05/18/2025 12:21 AM [facility] Abs Lymphocytes Man 1.3(L) 1.5 - 4.5 Thou/uL 05/18/2025 12:21 AM [facility] Abs Monocytes Man 0.2 0.2 - 1.5 Thou/uL 05/18/2025 12:21 AM [facility] Abs Eosinophils Man 0.0 0.0 - 0.7 Thou/uL 05/18/2025 12:21 AM [facility] Normochromic Present 05/18/2025 12:21 AM [facility] Normocytic Present 05/18/2025 12:21 AM [facility] Blood Blood specimen / Unknown 05/17/2025 10:45 PM EDT 05/17/2025 11:03 PM EDT us Fabien Sullivan MD LAB BLOOD ORDERABLES [place] [address], [place] [address] * Type and Screen (05/17/2025 10:43 PM EDT) ABO/Rh O POSITIVE 05/17/2025 11:59 PM EDT [facility] Antibody Screen NEGATIVE 11:59 PM EDT [facility] Specimen Expiration 05/20/2025 05/17/2025 11:59 PM EDT [facility] Unit Number [id number] 05/18/2025 3:33 PM EDT [facility] Blood Component Type LEUKOREDUCED RED CELLS 05/18/2025 3:33 PM EDT [facility] Unit Division 00 05/18/2025 3:33 PM EDT [facility] Unit Status REL FROM ALLOC 12:18 AM EDT [facility] Transfusion Status OK TO TRANSFUSE 05/18/2025 3:33 PM EDT [facility] Crossmatch Result COMPATIBLE 05/18/2025 3:33 PM EDT [facility] Blood Blood specimen / Unknown 05/17/2025 10:43 PM EDT 05/17/2025 11:14 PM EDT Comment:Blood us Fabien Sullivan MD BLOOD BANK TEST ORDERABLES Final Result Performing Organization Address City/State/[place] Co de Phone Number HOSPITAL [place] [address] documented in this encounter Visit Diagnoses Diagnosis [...] infusion 100 mL/hr, Intravenous, Continuous, Starting on 05/20/25 at 1230, For 9 hours New Bag 05/20/2025 1:50 PM EDT 100 mL/hr 100 mL/hr lactated ringers (LR) infusion 50 mL/hr, Intravenous, Continuous, Starting on 05/21/25 at 1200 New Bag 05/21/2025 12:25 PM EDT 50 mL/hr 50 mL/hr sodium chloride 0.9% (NS) infusion 50 mL/hr, Intravenous, Continuous, Starting on Wed05/21/25 at 1830 New Bag 05/21/2025 6:37 PM EDT 50 mL/hr 50 mL/hr acetaminophen (OFIRMEV) injection 1,000 mg 1,000 mg, Intravenous, at 400 mL/hr, Every 8 hours, First dose on 05/19/25 at 1130, For 1 day New Bag 05/19/2025 6:32 PM EDT 1,000 mg 400 mL/hr acetaminophen (TYLENOL) tablet 650 mg 650 mg, Oral, Every 6 hours scheduled, First dose (after last modification) on Wed05/22/25 at 0600 Given 05/29/2025 12:22 PM EST 650 mg amLODIPine (NORVASC) tablet 5 mg 5 mg, Oral, Nightly, First dose on Wed05/17/25 at 2351, Hold for SBP less than 100 mmHg. Notify provider if a dose is held. Given 05/28/2025 8:32 PM EST 5 mg amoxicillin-clavulana te (AUGMENTIN) 875-125 MG per tablet 1 tablet 1 tablet, Oral, Every 12 hours scheduled, First dose on Wed05/28/25 at 2100, All antimicrobials used at [facility] require an indication. Please complete the following documentation. Bacterial Infection Suspected, Type of Therapy: New Therapy, Indication: Cellulitis Given 05/29/2025 9:36 AM EST 1 tablet apixaban (ELIQUIS) tablet 5 mg 5 mg, Oral, Every 12 hours scheduled, First dose on Wed05/17/25 at 2351, Tablets may be crushed and [...] Every 8 hours scheduled, First dose on Wed05/24/25 at 1700, All antimicrobials used at [facility] require an indication. Please complete the following [...] Every 8 hours scheduled, First dose on [facility] 05/19/25 at 1400, For subcutaneous use the [...] Continuous, Starting on 05/26/25 at 1300, HEPARIN THROMBOEMBOLIC/STANDA RD/FULL DOSE PROTOCOL: [...] Units/kg/hr 24.27 mL/hr HYDROmorphone (DILAUDID) 1 mg/mL KEY ACCOUNT DIRECTOR syringe (premix) Intravenous, KEY ACCOUNT DIRECTOR dose (mg): 0.2, Lockout interval: 10 min, [...] Intravenous, Administer over 30 Minutes, Once, On Wed05/20/25 at 0930, For 1 dose New Bag 05/20/2025 10:53 AM EDT 1 g 200 mL/hr magnesium sulfate IVPB 2 g in 50 mL SW PREMIX 2 g, Intravenous, Administer over 60 Minutes, Once, On Wed05/21/25 at 0900, For 1 dose New Bag 05/21/2025 11:05 AM EDT 2 g 50 mL/hr magnesium sulfate IVPB 2 g in 50 mL SW PREMIX 2 g, Intravenous, Administer over 60 Minutes, Once, On Wed05/22/25 at 0630, For 1 dose New Bag 05/22/2025 6:45 AM EDT 2 g 50 [...] 05/24/25 at 1630, All antimicrobials used at [facility] require an indication. Please complete the following documentation. Other, Specify: surgical skin infection New Bag 05/28/2025 10:52 AM EST 500 mg 100 [...] mEq, Intravenous, at 100 mL/hr, Once, On 05/19/25 at 0900, For 1 dose New Bag 05/19/2025 3:10 PM EDT 10 mEq 100 mL/hr potassium chloride IVPB 10 mEq in 100 mL SW (premix) 10 mEq, Intravenous, at 100 mL/hr, Once, On 05/19/25 at 1000, For 1 dose New Bag 05/19/2025 4:53 PM EDT 10 mEq 100 mL/hr potassium chloride IVPB 10 mEq in 100 mL SW (premix) 10 mEq, Intravenous, at 100 mL/hr, Once, On 05/19/25 at 1100, For 1 dose New Bag 05/19/2025 5:17 PM EDT 10 mEq 100 mL/hr potassium chloride IVPB 10 mEq in 100 mL SW (premix) 10 mEq, Intravenous, at 100 mL/hr, Once, On 05/20/25 at 0930, For 1 dose New 05/20/2025 1:49 PM EDT 10 mEq 100 mL/hr potassium chloride IVPB 10 mEq in 100 mL SW (premix) 10 mEq, Intravenous, at 100 mL/hr, Once, On 05/20/25 at 1030, For 1 dose New 05/20/2025 3:37 PM EDT 10 mEq 100 mL/hr potassium chloride IVPB 10 mEq in 100 mL SW (premix) 10 mEq, Intravenous, at 100 mL/hr, Once, On 05/20/25 at 1130, For 1 dose New 05/20/2025 5:50 PM EDT 10 mEq 100 mL/hr potassium chloride IVPB 20 mEq in 100 mL SW premix (central line) 20 mEq, Intravenous, at 100 mL/hr, Once, On 05/21/25 at 1130, For 1 dose, FOR CENTRAL [...] Wed05/20/25 at 1230, For 1 dose New 05/20/2025 9:15 PM EDT 15 mmol 83.3 mL/hr POTASSIUM phosphate IVPB 15 mmol in 250 mL NS (premix) 15 mmol, Intravenous, at 83.3 mL/hr, Once, On Wed05/21/25 at 1830, For 1 dose New 05/21/2025 10:05 PM EDT 15 mmol 83.3 [...] First dose on Marie 05/17/25 at 2351 Given 05/28/2025 8:32 PM EST 1 mg vancomycin (VANCOCIN) IVPB 1750 mg in 500 mL NS (premix) 1,750 mg, Intravenous, Administer over 120 Minutes, Every 12 hours, First dose on Wed05/25/25 at 0500, All antimicrobials used at [facility] require an indication. Please complete the following documentation. Bacterial Infection Suspected, Type of Therapy: New Therapy, Indication: Surgical Site New Bag 05/28/2025 12:02 PM EST 1,750 mg 267.5 mL/hr vancomycin (VANCOCIN) IVPB 2000 mg in 500 mL NS (premix) 2,000 mg, Intravenous, Administer over 120 Minutes, Once, On Marie 05/24/25 at 1700, For 1 dose, All antimicrobials used at [facility] require an indication. Please complete the following [...] Francoise Pierce RN)1226 (Given - Provider: Saravanan Herrera RN)1842 (Given - Provider: Saravanan Herrera RN) 0003 (Given - Provider: Francoise Pierce RN)0623 (Given - Provider: Francoise Pierce RN)1316 (Given - Provider: Kenia Arevalo RN)1814 (Given - Provider: Rome Wilkerson, ANAYA) 0056 (Given - Provider: Hanna Ji, ANAYA)0525 (Given - Provider: Hanna Ji, ANAYA)1222 (Given - Provider: Rome Wilkerson, NAAYA) amLODIPine (NORVASC) tablet 5 mg 5 mg, [...] Wed05/28/25 at 2100, All antimicrobials used at [facility] require an indication. Please complete the following documentation. Bacterial Infection Suspected, Type of Therapy: New Therapy, Indication: Cellulitis 2031 (Given - Provider: Hanna Ji RN) 0936 (Given - Provider: Kenia Arevalo, ANAYA) apixaban (ELIQUIS) tablet 5 mg 5 mg, [...] Anticoagulation: PE - reduce risk of recurrence 09 (Dose Auto Held - Provider: Radha Gay MD)2099 (Dose Auto Held - Provider: Radha Gay MD) 09 (Dose Auto Held - Provider: Radha Gay MD)2100 (Not Given - Provider: Hanna Ji RN - Reason: See Provider Order) 0753 (Provider Unheld - Provider: Kaylene Starr APRN)0936 (Given - Provider: Kenia Arevalo RN) cefepime (MAXIPIME) 2 g in sodium chloride-MBP (NS) 100 mL IVPB-MBP (CANCELED) 2 g, Intravenous, Administer over 3 Hours, Every 8 hours scheduled, First dose on Marie 05/24/25 at 1700, All antimicrobials used at [facility] require an indication. Please complete the following documentation. Other, Specify: surgical skin infection 0034 (Stopped - Provider: Francoise Pierce RN)0401 (New Bag - Provider: Francoise Pierce RN)0701 (Stopped - Provider: Saravanan Herrera RN)1228 (New Bag - Provider: Saravanan Herrera RN)1528 (Stopped - Provider: Saravanan Herrera RN)203 (New Bag - Provider: Francoise Pierce RN)2338 (Stopped - Provider: Francoise Pierce RN) 0432 (New Bag - Provider: Francoise Pierce RN)0747 (Stopped - Provider: Rome Wilkerson, RN)1500 (New Bag - Provider: Rome Wilkerson, RN)1735 (Stopped - Provider: Rome Wilkerson RN) chlorhexidine gluconate 2 % wipes - daily CHG application Topical, Daily, First dose on Wed05/19/25 at 0900, For daily use in patients [...] given) 0937 (Not Given - Provider: Kenia Arevalo, ANAYA - Reason: Dose held per order parameters) clonazePAM (KlonoPIN) tablet 1 mg 1 mg, Oral, Nightly, First dose on Marie 05/17/25 at 2351, Hazardous Level Medium B Special Handling See Hazardous Medication Policy & Procedures for more information. 2037 (Given - Provider: Francoise Pierce RN) 2031 (Given - Provider: Hanna Ji RN) lamoTRIgine (LaMICtal) tablet 300 mg 300 mg, Oral, Daily, First dose on Wed05/18/25 at 0900, Was the last dose administered within the last 5 days? Yes 0854 (Given - Provider: Saravanan Herrera RN) 1052 (Given - Provider: Rome Wilkerson RN) 0936 (Given - Provider: Kenia Arevalo, ANAYA) methocarbamol (ROBAXIN) tablet 500 mg 500 mg, Oral, 4 times daily, First dose on Wed05/23/25 at 1500 0400 (Given - Provider: Francoise Pierce RN)0854 (Given - Provider: Saravanan Herrera RN)1554 (Given - Provider: Saravanan Herrera RN)2037 (Given - Provider: Francoise Pierce RN) 0432 (Given - Provider: Francoise Pierce RN)1052 (Given - Provider: Rome Wilkerson ANAYA)1814 (Given - Provider: Rome Wilkerson, RN) 0057 (Given - Provider: Hanna Ji, RN)0525 (Given - Provider: Hanna iJ, RN)1222 (Given - Provider: Rome Wilkerson, RN) methylphenidate (CONCERTA) 24 hr tablet 18 mg 18 mg, Oral, Daily, First dose on Wed05/18/25 at 0900, For 13 doses, *Swallow whole; DO NOT Divide, Crush, or Chew* 0855 (Given - Provider: Saravanan Herrera RN) 1053 (Given - Provider: Rome Wilkerson, RN) 0936 (Given - Provider: Kenia Arevalo, RN) metoPROLOL SUCCINATE (TOPROL-XL) 24 hr tablet 50 [...] 05/24/25 at 1630, All antimicrobials used at [facility] require an indication. Please complete the following documentation. Other, Specify: surgical skin infection 0854 (New Bag - Provider: Saravanan Herrera RN)0954 (Stopped - Provider: Saravanan Herrera RN)2037 (New Bag - Provider: Francoise Pierce, ANAYA)2137 (Stopped - Provider: Francoise Pierce, RN) 1052 (New Bag - Provider: Rome Wilkerson, ANAYA)1152 (Stopped - Provider: Rome Wilkerson, ANAYA) PANTOprazole (PROTONIX) injection 40 mg 40 mg, Intravenous, Daily, First dose on Wed05/19/25 at 0900, Reconstitute each 40 mg vial with 10 ml NS and administer over 2 minutes 0854 (Given - Provider: Saravanan Sharon, RN) 1052 (Given - Provider: Rome Wilkerson RN) 0935 (Given - Provider: Kenia rAevalo RN) risperiDONE (RisperDAL) tablet 1 mg 1 mg, Oral, Nightly, First dose on Marie 05/17/25 at 2351 2038 (Given - Provider: Francoise Pierce RN) 2031 (Given - Provider: Hanna Ji, ANAYA) vancomycin (VANCOCIN) IVPB 1750 mg in 500 mL NS (premix) (CANCELED) 1,750 mg, Intravenous, Administer over 120 Minutes, Every 12 hours, First dose on Wed05/25/25 at 0500, All antimicrobials used at [facility] require an indication. Please complete the following documentation. Bacterial Infection Suspected, Type of Therapy: New Therapy, Indication: Surgical Site 0041 (Stopped - Provider: Francoise Pierce RN)1100 (New Bag - Provider: Saravanan Herrera RN)1300 (Stopped - Provider: Saravanan Herrera RN)2225 (New Bag - Provider: Francoise Pierce RN) 0025 (Stopped - Provider: Francoise Pierce RN)1202 (New Bag - Provider: Rome Wilkerson, ANAYA)1428 (Stopped - Provider: Rome Wilkerson RN) Continuous Medication Order 05/27/2025 05/28/2025 05/29/2025 [...] Francoise Pierce RN)1943 (Handoff - Provider: Hanna Ji RN) 0055 (New Bag - Provider: Hanna Ji RN)0703 (Handoff - Provider: Rome Wilkerson, ANAYA)0831 (Stopped - Provider: Kenia Arevalo, ANAYA) PRN Medication Order 05/27/2025 05/28/2025 05/29/2025 iohexol (OMNIPAQUE) 350 mg/mL injection 80 mL (COMPLETED) 80 mL, Intravenous, Once in imaging, contrast, Starting on 05/28/25 at 1053, For 1 dose, Radiology Appointment 1053 (Given - Provider: Lesly Stuart, RT) naloxone (NARCAN) 0.4 mg/mL injection 0.4 [...] Francoise Pierce RN)1059 (Given - Provider: Rome Wilkerson RN)1814 (Given - Provider: Rome Wilkerson, ANAYA) 1223 (Given - Provider: Rome Wilkerson RN) oxyCODONE (ROXICODONE) immediate release tablet 5 mg(Linked Group 1) 5 mg, Oral, Every 4 hours PRN, moderate to moderately severe pain 4-6, Starting on Wed05/22/25 at 1608, For 7 days 0904 (See Alternative - Provider: Saravanan Herrera RN)1554 (See Alternative - Provider: Saravanan Herrera RN)2038 (See Alternative - Provider: Francoise Pierce RN) 0035 (See Alternative - Provider: Francoise Pierce RN)0623 (Given - Provider: Francoise Pierce RN)1059 (See Alternative - Provider: Rome Wilkerson RN)1814 (See Alternative - Provider: Rome Wilkerson RN) 1223 (See Alternative - Provider: Rome Wilkerson RN) phenol (CHLORASEPTIC) 1.4 % spray 1 [...] days documented in this encounter Care Teams Plug Making Operator Relationship Specialty Start Date End Date Unknown Unknow Provider Address PCP - General 05/17/25 05/17/25 Hemanth Wlofe MD [address] [place] [address] PCP - General Medical Oncology 05/18/25 documented as of this encounter
--- OUTSIDE RECORDS SUMMARY | 2025-06-01 07:33 | XMS_ITS | Clinical Summary ---
Author Organization [facility] Address [address] [place] [address] Care Team Providers Care Trauma Program Manager Name Role Phone Abel Case MD Primary Care Provider [phone] Allergies No known active allergies Medications acetaminophen [...] Plan (05/18/2025 12:11 AM EDT): CT at [facility] significant for small and large bowel distention [...] Plan (05/18/2025 12:11 AM EDT): CT at [facility] significant for small and large bowel distention and concern for obstructive rectal stent and hepatic mets and gallbladder hydrops Keep the patient n.p.o. Start patient on IV fluid GI consulted by the ED follow recs Encounters Date Type Department Care Team Description 05/23/2025 Travel 05/19/2025 8:46 AM EDT Anesthesia Event [facility] Perioperative Surgical Services [address] [place] [phone] Megan Landers MD Scanlon, Daniel Joseph, MD 05/19/2025 8:30 AM EDT - 05/19/2025 10:36 AM EDT Surgery [facility] Per[facility]operative Surgical Services [address] [place] [phone] Radha Gay MD LAPAROSCOPY CREATION OF COLOSTOMY 05/17/2025 10:15 PM EDT Ancillary Procedure [facility] [address] [place] [phone] Provider, File Room 05/17/2025 10:10 PM EDT Ancillary Procedure [facility] [address] [place] [address] Provider, File Room 05/17/2025 9:59 PM EDT - 05/29/2025 1:36 PM EST Hospital Encounter [facility] [address] [place] [phone] Fabien Sullivan MD Marseille Mathieu, MD [...] time in the past 12 m [facility], were you homeless or living in a fci (including now)? No 05/18/2025 [facility] Utilities Answer Date Recorded In the [...] Xa 0.15 IU/mL 05/29/2025 7:53 AM EST [facility] Comment: (NOTE) Heparin Thromboembolic/Standard/Full Dose Protocol: [...] IV HEPARIN, UNFRACTIONATED 05/29/2025 5:02 AM EST [facility] Blood Blood specimen / Unknown 05/29/2025 5:31 AM EST 05/29/2025 7:13 AM EST Radha Gay MD LAB BLOOD [place] [address], [place] [address] * CT Abdomen+pelvis w/contrast (05/28/2025 10:53 AM [...] Fleischner guidelines were followed. Radha Gay MD [facility] CT ORDERABLES Final Re sult * (ABNORMAL) Complete Blood Count WITHOUT Differential - Early AM (05/28/2025 4:40 AM EST) Only the most recent of9 resultswithin the time period is included. White Blood Cell Count 3.7(L) 4.0 - 11.0 Thou/uL 05/28/2025 5:[address] [facility] Platelet Count 340 150 - 450 Thou/uL 05/28/2025 5:[address] [facility] Hemoglobin 9.6(L) 13.0 - 17.7 g/dL 05/28/2025 5:[address] [facility] Hematocrit 30.4(L) 39.0 - 54.0 % 05/28/2025 5:[address] [facility] Red Blood Cell Count 3.26(L) 4.50 - 6.20 Mil/uL 05/28/2025 5:[address] [facility] MCV 93 80 - 100 fL 05/28/2025 5:[address] [facility] MCH 29.4 27.0 - 31.0 pg 05/28/2025 5:[address] [facility] MCHC 31.6 30.0 - 36.0 g/dL 05/28/2025 5:[address] [facility] RDW 15.7(H) 11.5 - 14.5 % 05/28/2025 5:[address] [facility] MPV 8.7 7.5 - 12.5 fL 05/28/2025 5:[address] [facility] Blood Blood specimen / Unknown 05/28/2025 4:40 AM EST 05/28/2025 5:05 AM EST Brandee Orellana MD LAB BLOOD [place] [address], [place] [address] * Partial Thromboplastin Time (PTT) (05/26/2025 11:23 AM EDT) Only the most recent of3 resultswithin the time period is included. Anticoagulant IV HEPARIN, UNFRACTIONATED 05/26/2025 11:23 AM EDT [facility] Partial Thromboplastin Time (PTT) 35 25 - 36 seconds 05/26/2025 12:12 PM EDT [facility] Blood Blood specimen / Unknown 05/26/2025 11:23 AM EDT 05/26/2025 11:49 AM EDT Roselia Walters MD LAB BLOOD [place] [address], [address] [address] * (ABNORMAL) Protime-INR (05/26/2025 11:23 AM EDT) Only the most recent of4 resultswithin the time period is included. Anticoagulant IV HEPARIN, UNFRACTIONATED 05/26/2025 11:23 AM EDT [facility] Prothrombin Time (PT) 14.0(H) 10.0 - 13.5 seconds 05/26/2025 12:12 PM EDT [facility] INR 1.2 05/26/2025 12:12 PM EDT [facility] Comment:INR Therapeutic Rang es: Standard dose anticoagulant 2.0 to 3.0, High dose anticoagulant 2.5-3.5. Blood Blood specimen / Unknown 05/26/2025 11:23 AM EDT 05/26/2025 11:49 AM EDT Roselia Walters MD LAB BLOOD [place]AB[place] [address], [place] [address] * Vancomycin Level, Random (05/26/2025 9:00 AM EDT) [facility] Vancomycin, Random 8 mg/L 05/26/2025 10:25 AM EDT [facility] Comment:No reference range e stablished for random levels. Time of Last Dose Information not given 05/26/2025 8:24 AM EDT [facility] Blood Blood specimen / Unknown 05/26/2025 9:00 AM EDT 05/26/2025 9:25 AM EDT Radha Gay MD LAB BLOOD [place]AB[place] [address], [place] [address] * Phosphorus (05/25/2025 6:30 AM EDT) Only the most recent of10 resultswithin the time period is included. Phosphorus 3.0 2.7 - 4.5 mg/dL 05/25/2025 7:45 AM EDT [facility] Blood Blood specimen / Unknown 05/25/2025 6:30 AM EDT 05/25/2025 7:04 AM EDT Radha Gay MD LAB BLOOD ORDERABLES Final Result Performing Organization Address City/[facility] [place] [address], [place] [address] * Magnesium (05/25/2025 6:30 AM EDT) Only the most recent of10 resultswithin the time period is included. Pathologist [facility] Magnesium 1.8 1.6 - 2.7 mg/dL 05/25/2025 7:45 AM EDT [facility] Blood Blood specimen / Unknown 05/25/2025 6:30 AM EDT 05/25/2025 7:04 AM EDT Radha Gay MD LAB BLOOD ORDERABLES Final Result Performing Organization Address City/[facility] [place] [address], [place] [address] * (ABNORMAL) Basic Metabolic Panel (05/25/2025 6:30 AM EDT) Only the most recent of11 resultswithin the time period is included. Pathologist [facility] Glucose 84 65 - 99 mg/dL 05/25/2025 7:45 AM EDT [facility] Comment:Fasting: <100 mg/dL, Non-Fasting: <200 mg/dL (ADA 2005) Blood Urea Nitrogen (BUN) 4(L) 8 - 21 mg/dL 05/25/2025 7:45 AM EDT [facility] Creatinine 0.44(L) 0.50 - 1.30 mg/dL 05/25/2025 7:45 AM EDT [facility] eGFR >90 >59 05/25/2025 7:45 AM EDT [facility] Comment:CKD-EPI (2020) in mL /min/1.73 sq meters. Sodium 135(L) 136 - 145 mmol/L 05/25/2025 7:45 AM EDT [facility] Potassium 3.5 3.4 - 5.3 mmol/L 05/25/2025 7:45 AM EDT [facility] Chloride 100 98 - 107 mmol/L 05/25/2025 7:45 AM EDT [facility] CO2 22 22 - 33 mmol/L 05/25/2025 7:45 AM EDT [facility] Anion Gap 13 7 - 17 05/25/2025 7:45 AM T [facility] Calcium 8.3(L) 8.7 - 10.5 mg/dL 05/25/2025 7:45 AM T [facility] BUN/Creatinine Ratio 9(L) 10.0 - 25.0 Ratio 05/25/2025 7:45 AM T [facility] Blood Blood specimen / Unknown 05/25/2025 6:30 AM EDT 05/25/2025 7:04 AM EDT Radha Gay MD LAB BLOOD [place]AB[place] [address], [place] [address] * Body Fluid Culture (includes Aerobic, Anaerobic and Gram Stain) (05/24/2025 4:41 PM EDT) Special Requests Limited quantity of fluid received, results may be impacted. 05/25/2025 10:29 AM EDT [facility] Gram stain suggestive of Few neutrophils Red blood cells No organisms seen 05/24/2025 5:34 PM EDT [facility] Culture No aerobes and anaerobes isolated after 7 days 05/31/2025 1:52 PM EST [facility] Fluid, Peritoneal (Abdominal Cavity) 05/24/2025 4:41 PM EDT 05/24/2025 4:53 PM EDT Comment:Fluid, Peritoneal us Radha Gay MD MICROBIOLOGY - GENERAL ORD ERABLES Final Result [facility] [address] [place] [address], [facility] [address] [place] [address] * (ABNORMAL) Complete Blood Count, with Differential (05/24/2025 1:30 PM EDT) Only the most recent of2 resultswithin the time period is included. White Blood Cell Count 5.0 4.0 - 11.0 Thou/uL 05/24/2025 2:05 PM EDT [facility] Platelet Count 255 150 - 450 Thou/uL [facility] Hemoglobin 9.8(L) 13.0 - 17.7 g/dL 05/24/2025 2:05 PM [facility] Hematocrit 30.5(L) 39.0 - 54.0 % 05/24/2025 2:05 PM EDT [facility] Red Blood Cell Count 3.36(L) 4.50 - 6.20 Mil/uL 05/24/2025 2:05 [facility] MCV 91 80 - 100 fL 05/24/2025 2:05 PM EDT [facility] MCH 29.2 27.0 - 31.0 pg 05/24/2025 2:05 [facility] MCHC 32.1 30.0 - 36.0 g/dL 05/24/2025 2:05 PM EDT [facility] RDW 15.5(H) 11.5 - 14.5 % 05/24/2025 2:05 PM EDT [facility] MPV 8.7 7.5 - 12.5 fL 05/24/2025 2:05 [facility] Neutrophils Auto 61.8 % 05/24/20 2:38 PM EDT [facility] Comment:Results verified by smear review. Immature Granulocytes 0.4 % 05/24/2025 2:38 PM EDT [facility] Lymphocytes Auto 22.1 % 05/24/20 2:38 PM EDT [facility] Monocytes Auto 15.5 % 05/24/2025 2:38 PM EDT [facility] Eosinophils Auto 0.0 % 05/24/20 2:38 PM EDT [facility] Basophils Auto 0.2 % 05/24/2025 2:38 PM EDT [facility] Abs Neutrophils Auto 3.08 2.00 - 7.50 Thou/uL 05/24/2025 2:38 PM EDT [facility] Abs Immature Granulocytes 0.02 0.00 - 0.10 Thou/uL 05/24/2025 2:38 PM EDT [facility] Abs Lymphocytes Auto 1.10(L) 1.50 - 4.50 Thou/uL 05/24/2025 2:38 PM EDT [facility] Abs Monocytes Auto 0.77 0.20 - 1.50 Thou/uL 05/24/2025 2:38 PM EDT [facility] Abs Eosinophils Auto 0.00 0.00 - 0.70 Thou/uL 05/24/2025 2:38 PM EDT [facility] Abs Basophils Auto 0.01 0.00 - 0.20 Thou/uL 05/24/2025 2:38 PM EDT [facility] Blood Blood specimen / Unknown 05/24/2025 1:30 PM EDT 05/24/2025 1:56 PM EDT Radha Gay MD LAB BLOOD [place]AB[place] [address], [place] [address] * ECG 12 lead (05/22/2025 5:10 PM EDT) Only the most recent of2 resultswithin the time period is included. Ventricular rate 86 BPM EKG [facility] Atrial rate 86 BPM EKG [facility] P-R interval 158 ms EKG [facility] QRS duration 90 ms EKG [facility] Q-T interval 392 ms EKG [facility] QTC calculation (Bazett) 469 ms EKG [facility] P axis 37 degrees EKG [facility] R axis -46 degrees EKG [facility] T axis 30 degrees EKG [facility] 05/22/2025 5:10 PM EDT Narrative EKG [facility] - 05/23/2025 9:25 PM EDT Normal [...] Fabien Sullivan MD ECG ORDERABLES Final Result [facility] * (ABNORMAL) Albumin (05/22/2025 7:00 AM EDT) Albumin 3.1(L) 3.4 - 4.8 g/dL 05/22/2025 7:38 AM EDT [facility] Blood Blood specimen / Unknown 05/22/2025 7:00 AM EDT 05/22/2025 7:09 AM EDT Keanu Greer MD LAB BLOOD ORDERABLES Final Resul t [address] [address], [address] [address] * XR Chest 1 view (05/21/2025 8:54 PM EDT) Anatomical Region Laterality Modality Chest Computed Radiogr aphy 05/21/2025 8:26 PM EDT Impressions 05/21/2025 9:40 PM EDT Mild bronchial wall thickening. Streaky left mid to lower lung opacities may reflect atelectasis and/or infectious/inflammatory process. Interpreted by: Pb Cummins MD Circuit Designer I personally reviewed the images and the [...] infectious/inflammatory process. Interpreted by: Pb Cummins MD Circuit Designer I personally reviewed the images and the resident's preliminary report and AGREE with the report as it is now presented ([id number]). us Radha Gay MD IMG DIAGNOSTIC IMAGING ORD ERABLES Final Result * Blood Culture (05/21/2025 8:36 PM EDT) Only the most recent of2 resultswithin the time period is included. Culture Sterile after 5 days 05/27/2025 7:[address] [facility] Blood (Blood, Peripheral Venipuncture) 05/21/2025 8:36 PM EDT 05/21/2025 8:54 PM EDT Comment:Blood us Radha Gay MD LAB BLOOD ORDERABLES Final Result [facility] [address] [place] [address], [place] * (ABNORMAL) Urinalysis with Reflex to Microscopic (05/21/2025 8:32 PM EDT) Color Yellow 05/21/2025 8:55 PM EDT [facility] Clarity Cloudy 05/21/2025 8:55 PM EDT [facility] Specific Brick 1.020 1.005 - 1.030 05/21/2025 8:55 PM EDT [facility] pH 6.0 5.0 - 8.0 05/21/2025 8:55 PM EDT [facility] Leukocyte Esterase Negative Negative 05/21/2025 8:55 PM EDT [facility] Nitrite Negative Negative 05/21/2025 8:55 PM EDT [facility] Protein 30(A) NEG^Negative mg/dL 05/21/2025 8:55 PM EDT [facility] Glucose Negative Negative mg/dL 05/21/2025 8:55 PM EDT [facility] Ketones 80(A) NEG^Negative mg/dL 05/21/2025 8:55 PM EDT [facility] Blood Negative Negative 05/21/2025 8:55 PM EDT [facility] Bilirubin Negative Negative 05/21/2025 8:55 PM EDT [facility] RBC 2 0 - 4 per hpf 05/21/2025 8:55 PM EDT [facility] WBC 1 0 - 4 per hpf 05/21/2025 8:55 PM EDT [facility] Epithelial Cells 1 per hpf 05/21/2025 8:55 PM EDT [facility] Casts 1 0 - 4 per lpf 05/21/2025 8:55 PM EDT [facility] Comment:Casts are hyaline un less otherwise noted. Urine Urine specimen / Unknown 05/21/2025 8:32 PM EDT 05/21/2025 8:39 PM EDT us Radha Gay MD URINE ORDERABLES Final Res ult Performing Organization Address [facility] [place] [address], [place] [address] * (ABNORMAL) POTASSIUM - Post op (05/19/2025 11:13 AM EDT) Potassium 3.1(L) 3.4 - 5.3 mmol/L 05/19/2025 11:46 AM EDT [facility] Blood Blood specimen / Unknown 05/19/2025 11:13 AM EDT 05/19/2025 11:25 AM EDT us Zena Lopez CRNA LAB BLOOD ORDERABLES Final R esult Performing Organization Address [facility] [place] [address], [place] [address] * ANES INTUBATION (05/19/2025 9:10 AM EDT) Narrative Zena Lopez CRNA - 05/19/2025 9:10 AM EDT Zena Lopez CRNA 05/19/2025 9:12 AM Anesthesia Procedure Note - Patient Name: Nemesio Baldwin : 1965 Patient location: [place] Procedure indications: airway protection Procedure diagnosis: Anesthesia Performed by: Resident/CORPORATE ANALYST MD Zena Jernigan CRNA Chart Verification Airway: [...] intubation , no complications Megan Landers MD ND ANESTHESIA Final Result * Prepare RBC's:Prepare in: Units; Number of Units: 1; Transfusion Indications: Hemoglobin less than 7 gm/dl or HCT less than 21% (05/18/2025 3:24 PM EDT) Units Ordered 1 05/18/2025 3:24 PM EDT [facility] 05/18/2025 3:24 PM EDT 05/18/2025 3:34 PM EDT Felipe Limon MD BLOOD BANK PRODUCT ORDERABL [place] [address], [address] [address] * XR Abdomen 1 view-Portable (05/18/2025 10:00 [...] - 128 U/L 05/17/2025 11:25 PM EDT [facility] Aspartate Aminotrans (AST) 21 10 - 55 U/L 05/17/2025 11:25 PM EDT [facility] Alanine Aminotrans (ALT) 10 10 - 55 U/L 05/17/2025 11:25 PM EDT [facility] Bilirubin, Total 1.0 0.2 - 1.0 mg/dL 05/17/2025 11:25 PM T [facility] Protein, Total 6.9 6.3 - 8.3 g/dL 05/17/2025 11:25 PM EDT [facility] Albumin 3.8 3.4 - 4.8 g/dL 05/17/2025 11:25 PM [facility] Bilirubin, Direct 0.2 0 - 0.2 mg/dL 05/17/2025 11:25 PM EDT [facility] Globulin 3.1 1.5 - 3.9 g/dL 05/17/2025 11:25 PM T [facility] Albumin/Globulin Ratio 1.2 1.0 - 3.0 Ratio 05/17/2025 11:25 PM T [facility] Blood Blood specimen / Unknown 05/17/2025 10:45 PM EDT 05/17/2025 11:03 PM EDT us Fabien Sullivan MD LAB BLOOD ORDERABLES Final Resul t Performing Organization Address City/[facility]/[place] [address], [place] [address] * Type and Screen (05/17/2025 10:43 PM EDT) ABO/Rh O POSITIVE 05/17/2025 11:59 PM EDT [facility] Antibody Screen NEGATIVE 11:59 PM EDT [facility] Specimen Expiration 05/20/2025 05/17/2025 11:59 PM EDT [facility] Unit Number [id number] 05/18/2025 3:33 PM EDT [facility] Blood Component Type LEUKOREDUCED RED CELLS 05/18/2025 3:33 PM EDT [facility] Unit Division 00 05/18/2025 3:33 PM EDT [facility] Unit Status REL FROM ALLOC 12:18 AM EDT [facility] Transfusion Status OK TO TRANSFUSE 05/18/2025 3:33 PM EDT [facility] Crossmatch Result COMPATIBLE 05/18/2025 3:33 PM EDT [facility] Blood Blood specimen / Unknown 05/17/2025 10:43 PM EDT 05/17/2025 11:14 PM EDT Comment:Blood us Fabien T Laurie DICKENS BLOOD BANK TEST ORDERABLES Final Result Performing Organization Address [facility] Co de Phone Number [place] [address] * CT Abdomen Archive for Reference Only (05/17/2025 10:06 PM EDT) Only the most recent of2 resultswithin the time period is included. Narrative YOEL - 05/17/2025 10:06 PM EDT This study has been auto finalized and does not contain a result. us File Room Provider IMG DIGITIZE FILMS Final Resu lt YOEL [phone] from Last 3 Months Insurance [facility] MEDICARE PART A Advance Directives * Full Code (Latest Code Status on File) Date Activated Date Inactivated Comments 05/19/2025 11:25 AM * Full Code Date Activated Date Inactivated Comments 05/17/2025 11:44 PM 05/19/2025 11:25 AM Question Answer Comments Decision Thoroughly Discussed with: Patient Care Teams Trauma Program Manager Relationship Specialty Start Date End Date Abel Case MD [address] [place] [id number] PCP - General Medical Oncology 05/18/25
[2025-06-01 07:42] LABS: MANUAL DIFF FLAG NO
[2025-06-01 08:06] LABS: Hematocrit 33.6 % (42.0-52.0); Hemoglobin 10.4 g/dl (14.0-18.0); Imm Gran Abs Auto 0.05 X10*3/uL (0.00-0.03); Imm Gran Pct Auto 1.0 % (0.0-0.4); Lymphocytes Absolute Auto 1.7 X10*3/uL (1.2-4.9); Mean Corpuscular HGB Conc 31.0 g/dl (31.0-36.0); Mean Corpuscular Hemoglobin 29.1 pg (27.0-33.0); Mean Corpuscular Volume 94.1 fL (80.0-98.0); NRBC Abs Auto 0.000 X10*3/uL (0.0-0.012); NRBC Pct Auto 0.0 /100WBC (0.0-0.2); Platelet Count 394 X10*3/uL (160-400); Red Blood Count 3.57 X10*6/uL (4.60-5.80); White Blood Count 5.0 X10*3/uL (4.8-10.8)
[2025-06-01 08:45] LABS: Alanine Aminotransferase 17 U/L (0-40); Albumin Level 3.5 g/dL (3.5-5.0); Alkaline Phosphatase 57 U/L (39-117); Anion Gap 10 (12-20); Aspartate Amino Transferase 22 U/L (5-37); Blood Urea Nitrogen 7 mg/dL (9-16); Calcium 8.9 mg/dL (8.4-10.2); Carbon Dioxide 29 mmol/L (22-29); Chloride 107 mmol/L (96-108); Cholesterol 146 mg/dL (<200); Estimated Glomerular Filt Rate > 60; HDL Cholesterol 34 mg/dL (>40); Potassium 3.8 mmol/L (3.3-5.1); Sodium 142 mmol/L (135-145); Total Protein 6.6 g/dL (6.5-8.0); Triglycerides 297 mg/dL (<150)
[2025-06-01 09:32] LABS: Microalbum/Creatinine Ratio Ur 6.4 ug/mg cr (<30)
== END 2025-06-01 07:30 | disposition home or self-care (01) ==
LOC: HO.LAB 07:29
PROVIDERS: PCP Student in an Organized Health Care Education/Training Program; Visit Provider Student in an Organized Health Care Education/Training Program
DX: Z00.00 Encounter for general adult medical examination without abnormal findings (principal); Z13.1 Encounter for screening for diabetes mellitus; Z13.21 Encounter for screening for nutritional disorder; Z13.6 Encounter for screening for cardiovascular disorders
CPT/HCPCS: 36415; 80053; 80061; 82043; 82306; 82570; 83036; 85025

== ENCOUNTER 2025-06-27 08:45 | Outpatient (AMB) | payer OTHER, SELFPAY ==
--- NOTE | 2025-06-27 08:48 | A.OFFPC_ITS ---
Vital Signs 06/27/25 08:52 Height 6 ft 2.41 in Weight 192 lb BMI 24.4 BP 116/70 Blood Pressure Location Lt brachial Position Sitting Respiration 18 Pulse 71 Pulse Source Pulse Oximeter Temp 97.8 F Temp Source Temporal Artery Scan Pulse Oximetry (%) 99 Oxygen Delivery Method Room Air Intake Visit Reasons: month follow up post D/C Patcher Bowling Ball Required: No Accompanied by: Self / Same As Patient Allergies No Known Allergies (No Known Allergies*) Allergy (Verified 06/27/25 08:48) Medication List - Last Reconciled 06/27/25 by Josesito Steve MD acetaminophen 500 mg PO BID amlodipine 5 mg PO BEDTIME amoxicillin 500 mg PO TID apixaban (Eliquis) 5 mg PO BID@0500,1700 cholecalciferol (vitamin D3) 1,250 mcg PO QWEEK 12 weeks clonazepam 1 mg PO BEDTIME lamotrigine 300 mg PO DAILY magnesium oxide 400 mg PO DAILY methylphenidate HCl 10 mg PO DAILY methylphenidate HCl ER 18 mg PO QAM metoprolol succinate ER 50 mg PO DAILY ondansetron 8 mg PO Q8H PRN oxycodone 5 mg PO Q8H PRN potassium chloride ER 20 mEq (2 x 10 mEq) PO DAILY risperidone (Risperdal) 1 mg PO BEDTIME trifluridine-tipiracil 15-6.14 mg (Lonsurf) tabs PO Tobacco use date assessed: 05/30/25 Dental Screening Dental Screen Date: 05/30/25 HPI HPI Comments History of Present Illness Details History of Present Illness The patient is a 60 year old individual presenting for a follow-up visit for management of multiple chronic conditions and acute issues post-colostomy. The patient has a history of rectal cancer and underwent a minimally invasive colostomy procedure, after which a stent that was previously placed was bypassed. Post-operatively, the patient has experienced poor healing of one of the incisions, with some In relation to the surgical site, the patient has developed a softball-sized incisional hernia located above the stoma. The hernia is not currently causing any pain or discomfort. A referral has been made to a wound and colostomy clinic for management of the healing issues, with the first visit scheduled for tomorrow. The patient's cancer care is managed by an oncologist, and chemotherapy has been on hold for the past couple of months to allow for recovery. The plan is to restart chemotherapy once the patient is deemed strong enough. Previous chemotherapy regimens included 5-FU and Avastin with Lonserf; prior CT scans had shown shrinkage of liver lesions on this therapy. Acutely, the patient developed a severe toothache just before Thanksgiving. Initial attempts to see the patient's regular dentist were delayed as the office required clearance from the oncologist. After obtaining clearance, the patient w as seen by the dentist, received a prescription for amoxicillin, and was referred for an oral surgery consultation for a tooth that has a prior root canal. The patient is using oxycodone as needed, which helps with the tooth pain. Regarding other medical history, the patient has chronic anemia with a stable hemoglobin of around 11.7. The patient was found to have a severe vitamin D deficiency with a level of 11.8, which improved to 28.1 after starting supplementation. Other recent labs show an LDL of 53 and an A1C of 4.9. The patient also has a history of hypertension, anxiety, and a pulmonary embolism. Medical History: - Rectal cancer - Anxiety - Hypertension - Pulmonary embolism - Vitamin D deficiency - Chronic anemia - History of dental abscess in a tooth w ith a prior root canal Surgical History: - Colostomy, minimally invasive - Rectal stent placement - Root canal Medications: - Amlodipine 5 mg for hypertension - Eliquis 5 mg for pulmonary embolism - Clonazepam for anxiety - Lamotrigine 300 mg for anxiety - Adderall - Metoprolol succinate 50 mg twice a day for hypertension - Zofran as needed for chemotherapy-rela jose nausea - Oxycodone 5 mg every 8 hours as needed for pain - Trazodone nightly for anxiety - Vitamin D supplementation - Amoxicillin 500 mg three times a day f or tooth infection Family History: - No family history was discussed during the visit. Diagnostic Results: - Labs from 06/11: - Vitamin D: 28.1 (improved from 11.8) - LDL cholesterol: 53 - A1c: 4.9% - Hemoglobin: 11.7 - Tests and Diagnostics: - Dental X-rays: Findings not specified, but confirmed prior root canal. - History of CAT scans every three month s for cancer surveillance showed shrinkage of liver lesions. Social History - Nutritional Intake: The patient has be en drinking Ensure occasionally, a few times per week. - Activity Level: The patient was encour aged to keep moving and remain active. - Functional Status: Reports feeling tir ed frequently. [facility] Medical History (Updated 06/27/25 @ 09:25 by Josesito Steve MD) Chronic anemia Vitamin D deficiency Toothache Electrolyte abnormality Colostomy care Prediabetes GERD without esophagitis Pulmonary emboli Abdominal distention Port-A-Cath in place H/O sigmoidoscopy Elective surgery Marijuana smoker Chronic back pain Anxiety History of obesity Diabetes mellitus Hypertension Neoplasm of rectosigmoid junction Surgical History History of flexible sigmoidoscopy (~03/20/25) H/O oral surgery No pertinent past surgical history Family History Mother No problems noted. Father No problems noted. Other Family history unknown Social History Household Members: Spouse Housing: House Are you a primary home health care worker to a significant other at home: No Do you presently have visiting nurse or other home services: No Patient Tobacco Use Status: Never used Tobacco e-Cigarette/Vaping Use: Never Used Substance Use Type: Marijuana Advance Directives Date on File: 03/13/24 service: No Current occupational status: disabled Cognitive needs: No Hearing needs: No Vision needs: Yes (rx glasses) Questionnaire Thrive Questionnaire Date Thrive assessed: 05/30/25 AUDIT C Alcohol Use Questionnaire (AUDIT-C) 1. How often do you have a drink containing alcohol?: Never 3. How often do you have six or more drinks on one occasion?: Never Total Score: 0 DANA-7 AMB Questionnaire DANA-7 Date DANA - 7 assessed: 05/30/25 Source: Developed by Drs. Elian Llamas, Mena Perkins, Pérez Morin and colleagues, with an educational iftikhar from [employer]. Review of Systems Narrative Review of Systems - Constitutional: Reports fatigue. - Dental: Reports toothache. - Integumentary: Reports poor healing of a surgical incision with some surround ing exudate ( - Abdomen: Reports a softball-sized hernia near the stoma. - Genitourinary: Denies urinary issues. - Psychiatric: Reports anxiety. All systems reviewed & are unremarkable except as reviewed in HPI and above Physical exam (Primary Care) Vital Signs: Last Vital Signs Temp 97.8 F 06/27/25 08:52 Pulse 71 06/27/25 08:52 Resp 18 06/27/25 08:52 BP 116/70 06/27/25 08:52 Pulse Ox 99 06/27/25 08:52 Oxygen Delivery Method Room Air 06/27/25 08:52 BMI result Body Mass Index 24.4 Tobacco/Smoking Status: Tobacco use Status Tobacco use date assessed 05/30/25 06/27/25 09:01 Patient Tobacco Use Status Never used Tobacco 06/27/25 09:01 e-Cigarette/Vaping Use Never Used 06/27/25 09:01 Thrive Assessment: Date of Thrive Assessment Date Thrive assessed 05/30/25 06/27/25 09:01 Narrative Physical Exam General: +Alert and oriented, Well nourished, No acute distress, Appears tired. Eye: Pupils are equal, round and reactive to light, Intact accommodation, Extraocular movements are intact, Normal conjunctiva, Vision unchanged. HENT: Normocephalic, Atraumatic, Tympanic membranes are clear, Normal hearing, Oral mucosa is moist, No pharyngeal erythema, Ear canals patent. Respiratory: Lungs CTA bilaterally, No wheeze, Respirations are non-labored. Cardiovascular: Regular rate, Regular rhythm, S1 auscultated, S2 auscultated, No murmur, Good pulses equal in all extremities, Normal peripheral perfusion, No edema. Gastrointestinal: Soft, Non-tender, Non-distended, Normal bowel sounds, No organomegaly, Colostomy present with some discharge around the stoma, Softball- sized hernia above the stoma. Musculoskeletal: Normal range of motion, Normal strength, No tenderness, No swelling, No deformity, Normal gait. Integumentary: Warm, Dry, [place], Intact, Wound around stoma not healing properly. Neurologic: Alert, Oriented, Normal sensory, Normal motor function, No focal defects, Cranial Nerves II-XII are grossly intact, Normal deep tendon reflexes. Psychiatric: Cooperative, Appropriate mood & affect, Normal judgment, Anxious. This encounter meets criteria for a level 5 visit due to the high-complexity medical decision-making required in managing this patient's active rectal cancer with recent colostomy, a poorly healing surgical wound with associated stoma complications, a incisional hernia, chronic anemia, significant vitamin D deficiency, and past pulmonary embolism requiring ongoing anticoagulation. The visit also involved management of an acute dental abscess requiring antibiotic therapy, pain control, oncologic clearance, and coordination of Eliquis interruption prior to possible extraction. Multiple chronic conditions ( hypertension, anxiety, postoperative fatigue, nutritional compromise) required review and adjustment. I reviewed extensive recent labs, imaging history, chemotherapy plans, surgical course, and medication risks. The patient required detailed counseling on wound care, nutritional optimization, activity recommendations, and complex cross-specialty coordination. The medical decision- [place] [address]. Coding Level of Care Code Est Pt Level 5 (96033) Complex visit Add On G2211 Diagnoses Colostomy care Z43.3 Toothache K08.89 Neoplasm of rectosigmoid junction D49.0 Vitamin D deficiency E55.9 Chronic anemia D64.9 Anxiety F41.9 Hypertension, unspecified type I10 Hypertension type: unspecified Pulmonary embolism, unspecified chronicity, unspecified pulmonary embolism type, unspecified whether acute cor pulmonale present I26.99 Pulmonary embolism type: unspecified Chronicity: unspecified Acute cor pulmonale presence: unspecified Assessment & Plan Assessment & Plan (1) Colostomy care: Comment: - The patient has a non-healing incision and stoma irritation, complicated by a large but asymptomatic incisional hernia. - The plan is for the patient to be seen at a specialized wound and colostomy clinic. - Surgical repair of the hernia is not indicated at this time and it will be monitored. - Increased protein intake via Ensure supplementation is recommended to promote healing. Code(s): Z43.3 - Encounter for attention to colostomy Category: Medical (2) Toothache: Comment: - The patient has an acute toothache in a tooth with a prior root canal. - The patient has started amoxicillin and has an upcoming oral surgery consultation. - The plan is to ensure the oncologist's clearance is provided to the surgeon. - The patient will need to hold Eliquis for 48 hours prior to any extraction. - Pain can be managed with oxycodone as needed. Code(s): K08.89 - Other specified disorders of teeth and supporting structures Category: Medical (3) Neoplasm of rectosigmoid junction: Comment: - The patient is in recovery from recent surgery and chemotherapy is currently on hold. - The patient is anxious to restart treatment, but the plan is to focus on resolving the acute wound and dental issues first to build up strength before resuming chemotherapy. Code(s): D49.0 - Neoplasm of unspecified behavior of digestive system Category: Medical (4) Vitamin D deficiency: Comment: - Vitamin D levels have improved with supplementation but are not yet at goal; supplementation will continue for at least 12 weeks before rechecking. Code(s): E55.9 - Vitamin D deficiency, unspecified Category: Medical (5) Chronic anemia: Comment: - The chronic mild anemia is stable and requires no immediate intervention. Code(s): D64.9 - Anemia, unspecified Category: Medical (6) Anxiety: Comment: Anxiety and ADHD - The patient is on a stable, multi-drug regimen for his psychiatric conditions. - He is advised to continue his current medications and follow up with his mental health provider. Code(s): F41.9 - Anxiety disorder, unspecified Category: Medical (7) Hypertension: Comment: - His blood pressure is managed on his current regimen. - He will continue taking amlodipine and metoprolol succinate 50 mg. Code(s): I10 - Essential (primary) hypertension Category: Medical Qualifiers: Hypertension type: unspecified Qualified Code(s): I10 - Essential (primary) hypertension (8) Pulmonary emboli: Comment: - His condition is stable. - He will continue Eliquis 5 mg twice a day, with the understanding that long- term anticoagulation is necessary due to the prothrombotic state of his malignancy also given the need to help Eliquis prior to any tooth extraction Code(s): I26.99 - Other pulmonary embolism without acute cor pulmonale Category: Medical Qualifiers: Pulmonary embolism type: unspecified Chronicity: unspecified Acute cor pulmonale presence: unspecified Qualified Code(s): I26.99 - Other pulmonary embolism without acute cor pulmonale Plan: Health Maintenance: - Dietary guidance: Advised to increase protein intake by consuming Ensure as a supplement three times a day with meals to promote wound healing. - Advised to consume smaller, more frequent meals to accommodate the colostomy. - Physical activity: Encouraged to remain active and continue moving to maintain strength and well-being. - Follow-up care: A follow-up visit is scheduled in two months, with instructions to schedule an earlier appointment if any issues arise. Patient was informed and verbally consented to the use of an ambient scribe for clinic note documentation during this visit. Plan I discussed with the patient and the patient's partner the current priorities of care, emphasizing a slow and steady approach to recovery. We focused on addressing the two main active issues: the poorly healing colostomy wound and the new, painful toothache. I explained that the incisional hernia is not an emergency and that we would not pursue surgical repair at this time to avoid further complications, and would instead monitor it. I reviewed the importance of nutrition for wound healing and strongly recommended supplementing the patient's diet with Ensure three times a day, in addition to regular meals. I also encouraged the patient to remain as physically active as possible, using pain medication as needed to facilitate movement. We reviewed recent lab results, which were generally reassuring, and confirmed the plan to recheck vitamin D levels after 12 weeks of continued supplementation. We confirmed the logistics for the upcoming appointments with the wound clinic and the oral surgeon. I advised that a follow-up visit in two months would be appropriate, given the multiple specialist appointments, but emphasized that they should call or schedule an appointment sooner should any issues or concerns arise. Patient Instructions: - Attend your appointment at the [facility] to have your surgical site checked. - Go to your consultation with the oral surgeon for your tooth pain. Make sure they have the clearance letter from your cancer doctor. - Continue taking the amoxicillin prescribed by your dentist for the full course. - You MUST stop taking Eliquis for 48 hours (2 days) before any procedure to pull your tooth. Please confirm the timing with the oral surgeon. - To help your body heal, drink one can of Ensure with each of your three daily meals. - Eat smaller meals more frequently throughout the day. - Drink plenty of water. - Keep moving and stay as active as you can. You can use your prescribed oxycodone for pain to help you stay mobile. - Continue taking all of your other regular medications as prescribed. - Come back for a follow-up visit in two months. Please call our office sooner if you have any problems or need to be seen before then.
[2025-06-27 08:52] VITALS: BP 116/70; PULSE 71; RESP 18; TEMP 36.6; O2SAT 99; BMI 24.4
--- OUTSIDE RECORDS SUMMARY | 2025-06-27 09:04 | XMS_ITS | Encounter Summary ---
Author Organization [facility] Address [address] [place] [id number] Care Team Providers Care Mixer Operator Name Role Phone Abel Case MD Primary Care Provider [phone] Encounter Details Date Type Department Care Team (Late st Contact Info) Description 06/22/2025 Scanned Document [facility] [place] [address] [phone] Gabbie Song PA-C [address] [id number] Social History Tobacco Use Types Packs/Day Years Used Date Smoking Tobacco: Never Alcohol Use Standard Drinks/Week Comments Never 0 [...] any time in the past 12 m [facility], were you homeless or living in a [place] [facility] [place] facility (including now)? No 05/18/2025 [facility] Utilities Answer Date Recorded In the [...] PM EDT documented as of this encounter Plan of Treatment Upcoming Encounters Date Type Department Care Team (Late st Contact Info) Description 07/23/2025 11:20 AM EST Office Visit [facility] Colorectal Surgery [address] [phone] Gabbie Song PA-C [address] [phone] documented as of this encounter Visit Diagnoses Not on filedocumented in this encounter Care Teams Mixer Operator Relationship Specialty Start Date End Date Abel Case MD [address] [place] [phone] PCP - General Medical Oncology 05/18/25 documented as of this encounter
--- OUTSIDE RECORDS SUMMARY | 2025-06-27 09:05 | XMS_ITS | Clinical Summary ---
Author Organization [facility] Address [address] [place] [address] Care Team Providers Care Medical Office Secretary Name Role Phone Abel Case MD Primary Care Provider [phone] Allergies No known active allergies Medications acetaminophen (TYLENOL) 325 MG tabletIndications :Large bowel obstruction (HCC) Take 2 tablets (650 mg total) by mouth 4 times daily (every 6 hours) as needed for mild pain. 240 tablet 05/29/20 25 025 Active apixaban (ELIQUIS) 5 MG tabletIndications :Large bowel obstruction (HCC) Take 1 tablet (5 mg total) by mouth every 12 (twelve) hours around the clock. 05/29/20 Active clonazePAM (KlonoPIN) 1 MG tabletIndications :Large bowel obstruction (HCC) Take 1 tablet (1 mg total) by mouth nightly. 05/29/20 25 025 Active lamoTRIgine (LaMICtal) 150 MG tabletIndications :Large bowel obstruction (HCC) Take 2 tablets (300 mg total) by mouth daily. 05/29/20 25 025 Active methylphenidate (CONCERTA) 18 MG CR tabletIndications :Large bowel obstruction (HCC) Take 1 tablet (18 mg total) by mouth daily. Max Daily Amount: 18 mg 05/29/20 Active metoPROLOL SUCCINATE (TOPROL-XL) 50 MG 24 hr tabletIndications :Large bowel obstruction (HCC) Take 1 tablet (50 mg total) by mouth daily. 05/29/20 Active risperiDONE (RisperDAL) 1 MG tabletIndications :Large bowel obstruction (HCC) Take 1 tablet (1 mg total) by mouth nightly. 05/29/20 25 Active oxyCODONE (ROXICODONE) 5 MG immediate release tabletIndications :Large bowel obstruction (HCC) Take 1 tablet (5 mg total) by mouth every 4 (four) hours as needed for severe pain. Max Daily Amount: 30 mg 10 tablet 05/29/20 Active amLODIPine (NORVASC) 5 MG tabletIndications :Large bowel obstruction (HCC) Take 1 tablet (5 mg total) by mouth nightly. 05/29/20 Active potassium chloride (K-TAB) 20 MEQ CR tablet Take 1 tablet (20 mEq total) by mouth. 03/30/20 Active Cholecalciferol (VITAMIN D-3 PO) Take 50,000 Units by mouth. Active methylphenidate (CONCERTA) 54 MG CR tablet 18 mg. 05/22/20 Active methylphenidate (RITALIN) 10 MG tablet Take 1 tablet (10 mg total) by mouth. 05/22/20 Active Gas Relief 80 MG chewable tablet CHEW 1 TABLET BY MOUTH TWICE A DAY NEEDED FOR ABDOMINAL BLOATING 04/04/20 Active ondansetron (ZOFRAN-ODT) 8 MG disintegrating tablet 05/15/20 Active OMEprazole (PriLOSEC) 20 MG capsule Take 1 capsule (20 mg total) by mouth every morning before breakfast. 05/15/20 Active amoxicillin-clavu lanate (AUGMENTIN) 875-125 MG per tabletIndications :Large bowel obstruction (HCC) Take 1 tablet by mouth every 12 (twelve) hours around the clock. 28 tablet 05/29/20 25 Discontinued methocarbamol (ROBAXIN) 500 MG tabletIndications :Large bowel obstruction (HCC) Take 1 tablet (500 mg total) by mouth 4 (four) times a day as needed for muscle spasms. 12 tablet 05/29/20 25 Discontinued Active Problems Problem Noted Date Diagnosed Date [...] Plan (05/18/2025 12:11 AM EDT): CT at [facility] significant for small and large bowel [...] Plan (05/18/2025 12:11 AM EDT): CT at [facility] significant for small and large bowel distention and concern for obstructive rectal stent and hepatic mets and gallbladder hydrops Keep the patient n.p.o. 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); Rectal cancer metastasized to liver (HCC) 06/04/2025 2:20 PM EST Clinical Support [facility] [address] [phone] Pao Castillo RN 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) 06/04/2025 2:20 PM EST Office Visit [facility] Colorectal Surgery [address] [phone] Gabbie Song PA-C Rectal cancer metastasized to liver (HCC) (Primary Dx); Colostomy in place (HCC) 05/19/2025 8:46 AM EDT Anesthesia Event [facility] [address] [place] [phone] Megan Landers MD Scanlon, Keanu Meng MD 05/19/2025 8:30 AM EDT - 05/19/2025 10:36 AM EDT Surgery [facility] [address] [place] [phone] Radha Gay MD LAPAROSCOPY CREATION OF COLOSTOMY 05/17/2025 10:15 PM EDT Ancillary Procedure [facility] Radiology [address] [place] [phone] Provider, File Room 05/17/2025 10:10 PM EDT Ancillary Procedure [facility] Radiology [address] [place] [phone] Provider, File Room 05/17/2025 9:59 PM EDT - 05/29/2025 1:36 PM EST Hospital Encounter [facility] [address] [place] [phone] Fabien Sullivan MD Marseille Mathieu, MD [...] any time in the past 12 [facility], were you homeless or living in a usp (including now)? No 05/18/2025 [facility] Utilities Answer Date Recorded In the past [...] Sign Reading Time Taken Comments Blood Pressure 118/74 06/18/2025 2:00 PM EST Pulse 67 06/18/2025 2:00 PM EST Temperature 35.8 C (96.5 F) 06/18/2025 2:00 PM EST Respiratory Rate 18 05/29/2025 11:51 AM EST Oxygen Saturation 98% 06/18/2025 2:00 PM EST Inhaled Oxygen Concentration - - Weight 85.7 kg (189 lb) 06/18/2025 2:00 PM EST Height 188 cm (6' 2 ) 06/04/2025 2:12 PM EST Body Mass Index 24.27 06/04/2025 2:12 PM EST Plan of Treatment Upcoming Encounters Date Type Department Care Team (Late st Contact Info) Description 07/23/2025 11:20 AM EST Office Visit [facility] Colorectal Surgery [address] [phone] Gabbie Song PA-C [address] [phone] Health Maintenance Due Date Last Done Comments [...] 0.15 IU/mL 05/29/2025 7:53 AM EST [facility] Comment: (NOTE) Heparin Thromboembolic/Standard/Full Dose Protocol: Therapeutic [...] HEPARIN, UNFRACTIONATED 05/29/2025 5:02 AM EST [facility] Blood Blood specimen / Unknown 05/29/2025 5:31 AM EST 05/29/2025 7:13 AM EST Radha Gay MD LAB BLOOD [place] [address], [place] [address] * CT Abdomen+pelvis w/contrast (05/28/2025 10:53 AM [...] 4.0 - 11.0 Thou/uL 05/28/2025 5:18 AM [facility] Platelet Count 340 150 - 450 Thou/uL 05/28/2025 5:18 AM [facility] Hemoglobin 9.6(L) 13.0 - 17.7 g/dL 05/28/2025 5:18 AM [facility] Hematocrit 30.4(L) 39.0 - 54.0 % 05/28/2025 5:18 AM [facility] Red Blood Cell Count 3.26(L) 4.50 - 6.20 Mil/uL 05/28/2025 5:18 AM [facility] MCV 93 80 - 100 fL 05/28/2025 5:18 AM [facility] MCH 29.4 27.0 - 31.0 pg 05/28/2025 5:18 AM [facility] MCHC 31.6 30.0 - 36.0 g/dL 05/28/2025 5:18 AM [facility] RDW 15.7(H) 11.5 - 14.5 % 05/28/2025 5:18 AM [facility] MPV 8.7 7.5 - 12.5 fL 05/28/2025 5:18 AM [facility] Blood Blood specimen / Unknown 05/28/2025 4:40 AM EST 05/28/2025 5:05 AM EST Brandee Orellana MD LAB BLOOD [place]AB[place] [address], [place] [address] * Partial Thromboplastin Time (PTT) (05/26/2025 11:23 AM EDT) Only the most recent of3 resultswithin the time period is included. [facility] Anticoagulant IV HEPARIN, UNFRACTIONATED 05/26/2025 11:23 AM EDT [facility] Partial Thromboplastin Time (PTT) 35 25 - 36 seconds 05/26/2025 12:12 PM EDT [facility] Blood Blood specimen / Unknown 05/26/2025 11:23 AM EDT 05/26/2025 11:49 AM EDT Roselia Walters MD LAB BLOOD ORDERABLES Final Result Performing Organization Address [facility] Co de Phone Number [address] [address], [address] [address] * (ABNORMAL) Protime-INR (05/26/2025 11:23 AM EDT) Only the most recent of4 resultswithin the time period is included. Anticoagulant IV HEPARIN, UNFRACTIONATED 05/26/2025 11:23 AM EDT [facility] Prothrombin Time (PT) 14.0(H) 10.0 - 13.5 seconds 05/26/2025 12:12 PM EDT [facility] INR 1.2 05/26/2025 12:12 PM EDT [facility] Comment:INR Therapeutic Rang es: Standard dose anticoagulant 2.0 to 3.0, High dose anticoagulant 2.5-3.5. Blood Blood specimen / Unknown 05/26/2025 11:23 AM EDT 05/26/2025 11:49 AM EDT Roselia Walters MD LAB BLOOD ORDERABLES Final Result Performing Organization Address [facility] Co de Phone Number [address] [address], [address] [address] * Vancomycin Level, Random (05/26/2025 9:00 AM EDT) Vancomycin, Random 8 mg/L 05/26/2025 10:25 AM EDT [facility] Comment:No reference range e stablished for random levels. Time of Last Dose Information not given 05/26/2025 8:24 AM EDT [facility] Blood Blood specimen / Unknown 05/26/2025 9:00 AM EDT 05/26/2025 9:25 AM EDT Radha Gay MD LAB BLOOD ORDERABLES Final Result Performing Organization Address [facility] [place] [address], [place] [address] * Phosphorus (05/25/2025 6:30 AM EDT) Only the most recent of10 resultswithin the time period is included. Phosphorus 3.0 2.7 - 4.5 mg/dL 05/25/2025 7:45 AM EDT [facility] Blood Blood specimen / Unknown 05/25/2025 6:30 AM EDT 05/25/2025 7:04 AM EDT Radha Gay MD LAB BLOOD ORDERABLES Final Result Performing Organization Address [facility] [place] [address], [place] [address] * Magnesium (05/25/2025 6:30 AM EDT) Only the most recent of10 resultswithin the time period is included. Magnesium 1.8 1.6 - 2.7 mg/dL 05/25/2025 7:45 AM EDT [facility] Blood Blood specimen / Unknown 05/25/2025 6:30 AM EDT 05/25/2025 7:04 AM EDT us Radha Gay MD LAB BLOOD ORDERABLES Final Result Performing Organization Address [facility] [place] [address], [place] [address] * (ABNORMAL) Basic Metabolic Panel (05/25/2025 6:30 AM EDT) Only the most recent of11 resultswithin the time period is included. Glucose 84 65 - 99 mg/dL 05/25/2025 7:45 AM EDT [facility] Comment:Fasting: <100 mg/dL, Non-Fasting: <200 mg/dL (ADA 2005) Blood Urea Nitrogen (BUN) 4(L) 8 - 21 mg/dL 05/25/2025 7:45 AM [facility] Creatinine 0.44(L) 0.50 - 1.30 mg/dL 05/25/2025 7:45 AM [facility] eGFR >90 >59 05/25/2025 7:45 AM [facility] Comment:CKD-EPI (2020) in mL /min/1.73 sq meters. Sodium 135(L) 136 - 145 mmol/L 05/25/2025 7:45 AM [facility] Potassium 3.5 3.4 - 5.3 mmol/L 05/25/2025 7:45 AM [facility] Chloride 100 98 - 107 mmol/L 05/25/2025 7:45 AM [facility] CO2 22 22 - 33 mmol/L 05/25/2025 7:45 AM [facility] Anion Gap 13 7 - 17 05/25/2025 7:45 AM [facility] Calcium 8.3(L) 8.7 - 10.5 mg/dL 05/25/2025 7:45 AM [facility] BUN/Creatinine Ratio 9(L) 10.0 - 25.0 Ratio 05/25/2025 7:45 AM [facility] Blood Blood specimen / Unknown 05/25/2025 6:30 AM EDT 05/25/2025 7:04 AM EDT Radha Gay MD LAB BLOOD ORDERABLES Final Result [address] [address], [address] [address] * Body Fluid Culture (includes Aerobic, Anaerobic and Gram Stain) (05/24/2025 4:41 PM EDT) Special Requests Limited quantity of fluid received, results may be impacted. 05/25/2025 10:29 AM EDT [facility] Gram stain suggestive of Few neutrophils Red blood cells No organisms seen 05/24/2025 5:34 PM EDT [facility] Culture No aerobes and anaerobes isolated after 7 days 05/31/2025 1:52 PM EST [facility] Fluid, Peritoneal (Abdominal Cavity) 05/24/2025 4:41 PM EDT 05/24/2025 4:53 PM EDT Comment:Fluid, Peritoneal Radha Gay MD MICROBIOLOGY - GENERAL ORD ERABLES Final Result [facility] [address] [place] [address], [facility] [address] [place] [address] * (ABNORMAL) Complete Blood Count, with Differential (05/24/2025 1:30 PM EDT) Only the most recent of2 resultswithin the time period is included. White Blood Cell Count 5.0 4.0 - 11.0 Thou/uL 05/24/2025 2:05 PM [facility] Platelet Count 255 150 - 450 Thou/uL 05/24/2025 2:05 PM [facility] Hemoglobin 9.8(L) 13.0 - 17.7 g/dL 05/24/2025 2:05 PM [facility] Hematocrit 30.5(L) 39.0 - 54.0 % 05/24/2025 2:05 PM [facility] Red Blood Cell Count 3.36(L) 4.50 - 6.20 Mil/uL 05/24/2025 2:05 PM [facility] MCV 91 80 - 100 fL 05/24/2025 2:05 PM [facility] MCH 29.2 27.0 - 31.0 pg 05/24/2025 2:05 PM [facility] MCHC 32.1 30.0 - 36.0 g/dL 05/24/2025 2:05 PM [facility] RDW 15.5(H) 11.5 - 14.5 % 05/24/2025 [facility] MPV 8.7 7.5 - 12.5 fL 05/24/2025 2:05 PM [facility] Neutrophils Auto 61.8 % 05/24/20 2:38 PM EDT [facility] Comment:Results verified by smear review. Immature Granulocytes 0.4 % 05/24/2025 2:38 PM EDT [facility] Lymphocytes Auto 22.1 % 05/24/20 2:38 PM EDT [facility] Monocytes Auto 15.5 % 05/24/2025 2:38 PM EDT [facility] Eosinophils Auto 0.0 % 05/24/20 2:38 PM EDT [facility] Basophils Auto 0.2 % 05/24/2025 2:38 PM EDT [facility] Abs Neutrophils Auto 3.08 2.00 - 7.50 Thou/uL 05/24/2025 2:38 PM EDT [facility] Abs Immature Granulocytes 0.02 0.00 - 0.10 Thou/uL 05/24/2025 2:38 PM EDT [facility] Abs Lymphocytes Auto 1.10(L) 1.50 - 4.50 Thou/uL 05/24/2025 2:38 PM EDT [facility] Abs Monocytes Auto 0.77 0.20 - 1.50 Thou/uL 05/24/2025 2:38 PM EDT [facility] Abs Eosinophils Auto 0.00 0.00 - 0.70 Thou/uL 05/24/2025 2:38 PM EDT [facility] Abs Basophils Auto 0.01 0.00 - 0.20 Thou/uL 05/24/2025 2:38 PM EDT [facility] Blood Blood specimen / Unknown 05/24/2025 1:30 PM EDT 05/24/2025 1:56 PM EDT us Radha Gay MD LAB BLOOD [place]AB[place] [address], [place] [address] * ECG 12 lead (05/22/2025 5:10 PM EDT) Only the most recent of2 resultswithin the time period is included. Ventricular rate 86 BPM EKG [facility] Atrial rate 86 BPM EKG [facility] P-R interval 158 ms EKG [facility] QRS duration 90 ms EKG [facility] Q-T interval 392 ms EKG [facility] QTC calculation (Bazett) 469 ms EKG [facility] P axis 37 degrees EKG [facility] R axis -46 degrees EKG [facility] T axis 30 degrees EKG [facility] 05/22/2025 5:10 PM EDT Narrative EKG [facility] - 05/23/2025 9:25 PM EDT Normal sinus rhythm Low voltage QRS Left anterior fascicular block Cannot rule out Inferior infarct (masked by fascicular block?) , age undetermined Possible Anterolateral infarct , age undetermined Abnormal ECG When compared with ECG of 22-May-2025 17:08, MANUAL COMPARISON REQUIRED PREVIOUS ECG IS INCOMPATIBLE Confirmed by MD Greenberg Mohammed ([id number]) on 05/23/2025 9:25:48 PM Procedure Note Vloodymyr Greenberg MD - 05/23/2025 Normal sinus rhythm [...] Sullivan MD ECG ORDERABLES Final Result EKG [facility] * (ABNORMAL) Albumin (05/22/2025 7:00 AM EDT) Albumin 3.1(L) 3.4 - 4.8 g/dL 05/22/2025 7:38 AM EDT [facility] Blood Blood specimen / Unknown 05/22/2025 7:00 AM EDT 05/22/2025 7:09 AM EDT us Keanu Greer MD LAB BLOOD ORDERABLES Final Resul t [address] [address], [address] [address] * XR Chest 1 view (05/21/2025 8:54 PM EDT) Anatomical Region Laterality Modality Chest Computed Radiogr aphy 05/21/2025 8:26 PM EDT Impressions 05/21/2025 9:40 PM EDT Mild bronchial wall thickening. Streaky left mid to lower lung opacities may reflect atelectasis and/or infectious/inflammatory process. Interpreted by: Pb Cummins MD Olericulture Teacher I personally reviewed the images and the [...] infectious/inflammatory process. Interpreted by: Pb Cummins MD Olericulture Teacher I personally reviewed the images and the resident's preliminary report and AGREE with the report as it is now presented ([email or web address]). us Radha Gay MD IMG DIAGNOSTIC IMAGING ORD ERABLES Final Result * Blood Culture (05/21/2025 8:36 PM EDT) Only the most recent of2 resultswithin the time period is included. Culture Sterile after 5 days 05/27/2025 7:41 AM EST [facility] Blood (Blood, Peripheral Venipuncture) 05/21/2025 8:36 PM EDT 05/21/2025 8:54 PM EDT Comment:Blood Radha Gay MD LAB BLOOD ORDERABLES Final Result [facility] [address] [place] [address], [place] * (ABNORMAL) Urinalysis with Reflex to Microscopic (05/21/2025 8:32 PM EDT) Color Yellow 05/21/2025 8:55 PM EDT [facility] Clarity Cloudy 05/21/2025 8:55 PM EDT [facility] Specific Etta 1.020 1.005 - 1.030 05/21/2025 8:55 PM EDT [facility] pH 6.0 5.0 - 8.0 05/21/2025 8:55 PM EDT [facility] Leukocyte Esterase Negative Negative 05/21/2025 8:55 PM EDT [facility] Nitrite Negative Negative 05/21/2025 8:55 PM EDT [facility] Protein 30(A) NEG^Negative mg/dL 05/21/2025 8:55 PM EDT [facility] Glucose Negative Negative mg/dL 05/21/2025 8:55 PM EDT [facility] Ketones 80(A) NEG^Negative mg/dL 05/21/2025 8:55 PM EDT [facility] Blood Negative Negative 05/21/2025 8:55 PM EDT [facility] Bilirubin Negative Negative 05/21/2025 8:55 PM EDT [facility] RBC 2 0 - 4 per hpf 05/21/2025 8:55 PM EDT [facility] WBC 1 0 - 4 per hpf 05/21/2025 8:55 PM EDT [facility] Epithelial Cells 1 per hpf 05/21/2025 8:55 PM EDT [facility] Casts 1 0 - 4 per lpf 05/21/2025 8:55 PM EDT [facility] Comment:Casts are hyaline un less otherwise noted. Urine Urine specimen / Unknown 05/21/2025 8:32 PM EDT 05/21/2025 8:39 PM EDT Radha Gay MD URINE ORDERABLES Final Res ult Performing Organization Address [facility] [place] [address], [place] [address] * (ABNORMAL) POTASSIUM - Post op (05/19/2025 11:13 AM EDT) Potassium 3.1(L) 3.4 - 5.3 mmol/L 05/19/2025 11:46 AM EDT [facility] Blood Blood specimen / Unknown 05/19/2025 11:13 AM EDT 05/19/2025 11:25 AM EDT Zena Lopez CRNA LAB BLOOD ORDERABLES Final R esult Performing Organization Address City/[facility] [place] [address], [place] [address] * ANES INTUBATION (05/19/2025 9:10 AM EDT) Narrative Zena Lopez CRNA - 05/19/2025 9:10 AM EDT Zena Lopez CRNA 05/19/2025 9:12 AM Anesthesia Procedure Note - Patient Name: Nemesio Baldwin : 1965 Patient location: [place] Procedure indications: airway protection Procedure diagnosis: Anesthesia Performed by: Resident/PROJECT STRUCTURAL ENGINEER MD Zena Jernigan CRNA Chart Verification Airway: [...] intubation , no complications Megan Landers MD [place] ANESTHESIA Final Result * Prepare RBC's:Prepare in: Units; Number of Units: 1; Transfusion Indications: Hemoglobin less than 7 gm/dl or HCT less than 21% (05/18/2025 3:24 PM EDT) Units Ordered 1 05/18/2025 3:24 PM EDT [facility] 05/18/2025 3:24 PM EDT 05/18/2025 3:34 PM EDT Felipe Limon MD BLOOD BANK PRODUCT ORDERABL [place] [address], [place] [address] * XR Abdomen 1 view-Portable (05/18/2025 10:00 [...] clear. No acute osseous abnormality. Procedure Note hCacho Mendez MD - 05/18/2025 EXAMINATION: XR ABDOMEN [...] 128 U/L 05/17/2025 11:25 PM EDT [facility] Aspartate Aminotrans (AST) 21 10 - 55 U/L 05/17/2025 11:25 PM EDT [facility] Alanine Aminotrans (ALT) 10 10 - 55 U/L 05/17/2025 11:25 PM EDT [facility] Bilirubin, Total 1.0 0.2 - 1.0 mg/dL 05/17/2025 11:25 PM EDT [facility] Protein, Total 6.9 6.3 - 8.3 g/dL 05/17/2025 11:25 PM EDT [facility] Albumin 3.8 3.4 - 4.8 g/dL 05/17/2025 11:25 PM EDT [facility] Bilirubin, Direct 0.2 0 - 0.2 mg/dL 05/17/2025 11:25 PM EDT [facility] Globulin 3.1 1.5 - 3.9 g/dL 05/17/2025 11:25 PM EDT [facility] Albumin/Globulin Ratio 1.2 1.0 - 3.0 Ratio 05/17/2025 11:25 PM EDT [facility] Blood Blood specimen / Unknown 05/17/2025 10:45 PM EDT 05/17/2025 11:03 PM EDT us Fabien Sullivan MD LAB BLOOD ORDERABLES Final Resul t Performing Organization Address City/[facility]/[place] [address], [place] [address] * Type and Screen (05/17/2025 10:43 PM EDT) ABO/Rh O POSITIVE 05/17/2025 11:59 PM EDT [facility] Antibody Screen NEGATIVE 11:59 PM EDT [facility] Specimen Expiration 05/20/2025 05/17/2025 11:59 PM EDT [facility] Unit Number [id number] 05/18/2025 3:33 PM EDT [facility] Blood Component Type LEUKOREDUCED RED CELLS 05/18/2025 3:33 PM EDT [facility] Unit Division 00 05/18/2025 3:33 PM EDT [facility] Unit Status REL FROM ALLOC 12:18 AM EDT [facility] Transfusion Status OK TO TRANSFUSE 05/18/2025 3:33 PM EDT [facility] Crossmatch Result COMPATIBLE 05/18/2025 3:33 PM EDT [facility] Blood Blood specimen / Unknown 05/17/2025 10:43 PM EDT 05/17/2025 11:14 PM EDT Comment:Blood us Fabien Sullivan MD BLOOD BANK TEST ORDERABLES Final Result Performing Organization Address City/[facility]/ZIP Co de Phone Number [place] [address] * CT Abdomen Archive for Reference Only (05/17/2025 10:06 PM EDT) Only the most recent of2 resultswithin the time period is included. Narrative YOEL - 05/17/2025 10:06 PM EDT This study has been auto finalized and does not contain a result. us File Room Provider IMG DIGITIZE FILMS Final Resu lt YOEL [phone] from Last 3 Months Insurance [facility] MEDIC[facility] PART A Advance Directives * Full Code (Latest Code Status on File) Date Activated Date Inactivated Comments 05/19/2025 11:25 AM * Full Code Date Activated Date Inactivated Comments 05/17/2025 11:44 PM 05/19/2025 11:25 AM Question Answer Comments Decision Thoroughly Discussed with: Patient Care Teams Medical Office Secretary Relationship Specialty Start Date End Date Abel Case MD [address] [place] [address] PCP - General Medical Oncology 05/18/25
== END 2025-06-27 09:23 | disposition home or self-care (01) ==
PROVIDERS: PCP Student in an Organized Health Care Education/Training Program; Visit Provider Student in an Organized Health Care Education/Training Program
DX: Z43.3 Encounter for attention to colostomy (principal); K08.89 Other specified disorders of teeth and supporting structures; D49.0 Neoplasm of unspecified behavior of digestive system; E55.9 Vitamin D deficiency, unspecified; D64.9 Anemia, unspecified; F41.9 Anxiety disorder, unspecified; I10 Essential (primary) hypertension; I26.99 Other pulmonary embolism without acute cor pulmonale